=== PATIENT | female | born 1965 | race Caucasian/White ===

== ENCOUNTER 2023-06-15 07:45 | Outpatient (OUT) | payer BC, SELFPAY ==
[2023-06-15 08:50] LABS: Estimated Average Glucose 212 mg/dL
[2023-06-15 08:51] LABS: Basophils Absolute Auto 0.1 10^3/uL (0.0-0.1); Basophils Percent Auto 0.8 % (0.2-2.0); Eosinophils Absolute Auto 0.4 10^3/uL (0.0-0.7); Eosinophils Percent Auto 4.1 % (0.9-7.0); Hematocrit 44.1 % (36.0-48.0); Hemoglobin 14.2 g/dL (12.0-16.0); Immature Granulocytes Abs Auto 0.02 10^3/uL (0.00-0.03); Immature Granulocytes Pct Auto 0.2 % (0.0-0.5); Mean Corpuscular HGB Conc 32.2 g/dL (29.9-35.2); Mean Corpuscular Hemoglobin 30.8 pg (26.7-34.0); Mean Corpuscular Volume 95.7 fL (81.0-99.0); Mean Platelet Volume 9.3 fL (9.5-13.5); Monocytes Absolute Auto 0.8 10^3/uL (0.3-0.8); Monocytes Percent Auto 8.7 % (1.7-12.0); Neutrophils Absolute Auto 5.7 10^3/uL (1.4-6.5); Neutrophils Percent Auto 64.2 % (43.0-75.0); Platelet Count 330 10^3/uL (150-450); Red Blood Count 4.61 10^6/uL (4.20-5.40); Red Cell Distribution Width 13.3 % (11.0-15.0); White Blood Count 8.9 10^3/uL (4.0-11.0)
[2023-06-15 09:10] LABS: Alanine Aminotransferase 55 U/L (14-59); Albumin Globulin Ratio 1.1; Albumin Level 3.7 g/dL (3.4-5.0); Alkaline Phosphatase 78 U/L (46-116); Anion Gap 10.6; Aspartate Amino Transferase 26 U/L (15-37); BUN Creatinine Ratio 22.8; Bilirubin Total 0.9 mg/dL (0.2-1.0); Calcium 8.9 mg/dL (8.5-10.1); Carbon Dioxide 31.5 mmol/L (21.0-32.0); Chloride 106 mmol/L (98-107); Chol HDL Ratio 1.7; Cholesterol 95 mg/dL (<=200); Estimated GFR (African America >60 (>=60); Estimated GFR (Non-African Ame >60 (>=60); Free T3 2.18 pg/mL (2.18-3.98); Globulin 3.3 g/dL; Glucose 180 mg/dL (74-106); HDL Cholesterol 55 mg/dL (40-60); LDL Cholesterol Calculated 19.4 mg/dL; Potassium 4.1 mmol/L (3.5-5.1); Sodium 144 mmol/L (136-145); Thyroid Stimulating Hormone 1.367 uIU/mL (0.358-3.740); Triglycerides 103 mg/dL (<=150); VLDL CHOLESTEROL 20.6 mg/dL
== END 2023-06-15 07:46 | disposition home or self-care (01) ==
PROVIDERS: PCP Family Medicine; Visit Provider Family Medicine
DX: Z00.00 Encounter for general adult medical examination without abnormal findings (principal)
CPT/HCPCS: 36415; 80053; 80061; 82306; 82607; 82746; 83036; 83540; 84436; 84443; 84481; 85025

== ENCOUNTER 2023-06-26 06:26 | Emergency (ER) | payer BC, SELFPAY ==
[2023-06-26 06:28] VITALS: BP 126/66; PULSE 83; RESP 16; TEMP 36.9; O2SAT 95; BMI 28.3
--- OUTSIDE RECORDS SUMMARY | 2023-06-26 06:41 | XMS_ITS | CCD ---
Author Name Unknown Address [address] [place] [address] Organization [facility] Care Team Providers [facility] Former Name Role Phone Patti Valdez MD Primary Care Provider [phone] Reed Leon MD Unavailable [phone] JOSÉ MIGUEL, DR ARMSTRONG Primary Care Unavailable JOSÉ MIGUEL, DR ARMSTRONG Attending Unavailable HOY, DR ARMSTRONG Admitting Unavailable HOY, DR ARMSTRONG Consulting Unavailable MISC, DR RUFF Admitting Unavailable HOY, DR ARMSTRONG Consulting Unavailable MISC, DR RUFF Attending Unavailable SAHILY, DR ARMSTRONG Primary Care Unavailable MISC, DR RUFF Consulting Unavailable ZIEBER, DR YENNY Greenberg Consulting Unavailable SAHILY, DR ARMSTRONG Consulting Unavailable SAHILY, DR ARMSTRONG Admitting Unavailable HOY, DR ARMSTRONG Attending Unavailable HOY, DR ARMSTRONG Primary Care Unavailable HOY, DR ARMSTRONG Admitting Unavailable HOY, DR ARMSTRONG Attending Unavailable SAHILY, DR ARMSTRONG Primary Care Unavailable HOY, DR ARMSTRONG Admitting Unavailable HOY, DR ARMSTRONG Attending Unavailable HOY, DR ARMSTRONG Primary Care Unavailable HOY, DR ARMSTRONG Admitting Unavailable HOY, DR ARMSTRONG Attending Unavailable HOY, DR ARMSTRONG Consulting Unavailable SAHILY, DR ARMSTRONG Primary Care Unavailable WEST, DR AUNDREA Quintero Consulting Unavailable FELIPE STRICKLAND Consulting Unavailable JOSÉ MIGUEL, DR ARMSTRONG Admitting Unavailable JOSÉ MIGUEL, DR ARMSTRONG Attending Unavailable JOSÉ MIGUEL, DR ARMSTRONG Consulting Unavailable JOSÉ MIGUEL, DR ARMSTRONG Primary Care Unavailable AUNDREA GOSS Consulting Unavailable FELIPE STRICKLAND Consulting Unavailable JOSÉ MIGUEL, DR ARMSTRONG Admitting Unavailable JOSÉ MIGUEL, DR ARMSTRONG Attending Unavailable JOSÉ MIGUEL, DR ARMSTRONG Primary Care Unavailable Patti Valdez MD Primary Care Provider [phone] Reed Leon MD Unavailable [phone] Patti Valdez MD Primary Care Provider [phone] Patti Valdez MD Primary Care Provider [phone] PATTI VALDEZ Primary Care Unavailable Johanne SNIDER Referring Unavailable Johanne SNIDER Attending Unavailable PATTI VALDEZ Primary Care Unavailable Johanne SNIDER Referring Unavailable PATTI VALDEZ Primary Care Unavailable Johanne SNIDER Referring Unavailable Johanne SNIDER Attending Unavailable Medications Current Medications Medication Drug Class(es) Dates Sig (Normalized) Sig (Original) aspirin 81 mg delayed release oral tablet (20 sources) Platelet Aggregation Inhibitor, Nonsteroidal Anti-inflammatory Drug Start: 12-14-2022 End: 12-27-2023 take 1 tablet by mouth once daily aspirin, enteric coated (ASPIR-81) 81 mg EC tablet Take 1 tablet by mouth once daily. 90 tablet 3 12/27/2022 12/27/2023 Active Start: 04-24-2017 aspirin (ASPIR -81 ORAL) once daily. 0 04/24/2017 Active Start: 04-24-2017 aspirin (ASPIR -81 ORAL) once daily. 0 04/24/2017 Suspended Comment on above: once daily. Take 1 tablet by arlette once daily. DULoxetine 60 mg delayed release oral capsule (13 sources) Serotonin and Norepinephrine Reuptake Inhibitor Start: End: DULoxetine (CYMBALTA) 60 mg capsule Take 60 mg by mouth once daily. Three times weekly 0 05/04/2020 08/08/2021 Discontinued (Adjust Sig - Block E-Cancel) Comment on above: Take 60 mg by mouth once daily. Three times weekly Take 60 mg by mouth every Saturday,Saturday,Saturday. 0.4 ml enoxaparin sodium 100 mg/ml prefilled syringe (3 sources) Low Molecular Weight Heparin Start: End: inject 40 mg by subcutaneous injection every twelve hours enoxaparin (LOVENOX) 40 mg/0.4 mL Inject 0.4 mL subcutaneously q 12 HR. 24 mL 0 11/16/2021 12/16/2021 Active Comment on above: Inject 0.4 mL subcut aneously q 12 HR. ezetimibe 10 mg oral tablet (20 sources) Dietary Cholesterol Absorption Inhibitor Start: 022 End: 023 take 1 tablet by mouth once daily ezetimibe (ZETIA) 10 mg tablet take 1 tablet by mouth once daily 90 tablet 3 02/19/2022 02/19/2023 Active Start: 02-16-2021 End: 02-16-2022 take 1 tablet by mouth once daily ezetimibe (ZETIA) 10 mg tablet Take 1 tablet by mouth once daily. 90 tablet 3 02/16/2021 02/16/2022 Active Comment on above: Take 1 tablet by arlette th once daily. take 1 tablet by arlette th once daily oxyCODONE hydrochloride 5 mg oral tablet (1 source) Opioid Agonist Start: 11-14-19 End: 11-17-19 take 1 tablet by mouth every eight hours as needed for pain oxyCODONE IR (ROXICODONE) 5 mg immediate release tablet Indications: Postoperative pain Take 1 tablet by mouth every 8 hours as needed for pain for up to 3 days. 5 tablet 0 11/13/2021 11/16/2021 Active Comment on above: Take 1 tablet by arlette th every 8 hours as needed for pain for up to 3 days. sacubitril 24 mg / valsartan 26 mg oral tablet (20 sources) Angiotensin 2 Receptor Josue Start: 09-15-19 End: 12-26-19 take 1 tablet by mouth twice daily sacubitril-valsartan (ENTRESTO) 24-26 mg tablet Take 1 tablet by mouth twice daily. 180 tablet 3 12/26/2022 12/26/2023 Active Comment on above: Take 1 tablet by arlette th twice daily. 125 ml sodium chloride 9 mg/ml prefilled syringe (17 sources) Start: 08-13-19 21 End: 11-12-19 sodium chloride 0.9 % (flush) 10 mL (BD POSIFLUSH) torsemide 20 mg oral tablet (20 sources) Loop Diuretic Start: 09-15-19 22 End: 09-15-19 23 take 1 tablet by mouth once daily torsemide (DEMADEX) 20 mg tablet Take 1 tablet by mouth once daily. 90 tablet 3 09/14/2021 09/14/2022 Active Comment on above: Take 1 tablet by arlette th once daily. Completed/Discontinued Medications Medication Drug Class(es) Dates Sig (Normalized) Sig (Original) atorvastatin 80 mg oral tablet (20 sources) HMG-CoA Reductase Inhibitor Start: 12-01-2021 End: 12-01-2022 take 1 tablet by mouth once daily atorvastatin (LIPITOR) 80 mg tablet Indications: Coronary artery disease involving [place] coronary artery of [place] heart, unspecified whether angina present take 1 tablet by mouth once daily 90 tablet 3 12/01/2021 Active Start: 11-09-2020 End: 11-09-2021 take 1 tablet by mouth once daily atorvastatin (LIPITOR) 80 mg tablet Indications: Coronary artery disease involving [place] coronary artery of [place] heart, unspecified whether angina present Take 1 tablet by mouth once daily. 90 tablet 3 11/09/2020 Active Comment on above: Take 1 tablet by arlette th once daily. take 1 tablet by arlette th once daily carvedilol 12.5 mg oral tablet (20 sources) alpha-Adrenergic Josue, beta-Adrenergic Josue Start: 12-14-2022 take 1 tablet by mouth twice daily at mealtime carvedilol (COREG) 12.5 mg tablet Take 1 tablet by mouth twice daily with meals. 0 12/14/2022 Active Start: 08-07-2021 take 2 tablets by mo uth twice daily at mealtime carvedilol (COREG) 12.5 mg tablet Take 2 tablets by mouth twice daily with meals. 0 08/07/2021 Active Start: 04-06-2021 End: 08-07-2021 take 1 tablet by mouth twice daily at mealtime carvedilol (COREG) 12.5 mg tablet Take 1 tablet by mouth twice daily with meals. 180 tablet 3 04/06/2021 08/07/2021 Discontinued Comment on above: Take 1 tablet by arlette th twice daily with meals. Take 2 tablets by mo uth twice daily with meals. cholecalciferol 1.25 mg oral capsule (11 sources) Vitamin D Start: 07-17-19 End: 10-25-19 take 1 capsule by mouth every week cholecalciferol, Vitamin D3, (VITAMIN D3) 1,250 mcg (50,000 unit) cap capsule Take 1 capsule by mouth one time a week. 12 capsule 0 07/17/2020 10/24/2021 Discontinued Comment on above: Take 1 capsule by mo uth one time a week. clopidogrel 75 mg oral tablet (13 sources) P2Y12 Platelet Inhibitor Start: 10-09-19 End: 10-27-19 take 1 tablet by mouth once daily clopidogrel (PLAVIX) 75 mg tablet Take 1 tablet by mouth once daily. 90 tablet 3 10/08/2020 10/26/2021 Discontinued (Discontinued by another Health Care Provider) Comment on above: Take 1 tablet by arlette once daily. colesevelam hydrochloride 625 mg oral tablet (20 sources) Bile Acid Sequestrant Start: 05-31-19 WELCHOL 625 mg tablet 1,875 mg once daily. 0 05/31/2020 Active Comment on above: 1,875 mg once daily. CPAP (20 sources) Start: 04-10-20 CPAP Please Expedite for upcoming surgery. Settings 5 - 15 cm H2O, suitable mask per pt preference, chin strap, head gear, humidity, tubing, lifetime supplies. G47.33 RAYMUNDO 1 Each 11 04/10/2021 Active Start: 04-10-2021 CPAP Please Ex pedite for upcoming surgery. Settings 5 - 15 cm H2O, suitable mask per pt preference, chin strap, head gear, humidity, tubing, lifetime supplies. G47.33 RAYMUNDO 1 Each 11 04/10/2021 Suspended Comment on above: Please Expedite for upcoming surgery. Settings 5 - 15 cm H2O, suitable mask per pt preference, chin strap, head gear, humidity, tubing, lifetime supplies. G47.33 RAYMUNDO empagliflozin 25 mg oral tablet (20 sources) Sodium-Glucose Cotransporter 2 Inhibitor Start: 022 End: 023 take 1 tablet by mouth once daily at breakfast empagliflozin (JARDIANCE) 25 mg tablet Take 1 tablet by mouth daily with breakfast. 90 tablet 3 09/14/2021 Active Start: 08-11-2021 End: 09-14-2021 take 1 tablet by mouth once daily at breakfast empagliflozin (JARDIANCE) 10 mg tablet Take 1 tablet by mouth daily with breakfast. 30 tablet 0 08/11/2021 09/14/2021 Discontinued Comment on above: Take 1 tablet by arlette daily with breakfast. FREESTYLE DESIREE 14 DAY SENSOR kit (20 sources) Start: 08-23-19 FREESTYLE DESIREE 14 DAY SENSOR kit apply 1 SENSOR to back OF UPPER ARM REMOVE AND REPLACE every 14 d... (REFER TO PRESCRIPTION NOTES). 0 08/22/2021 Active Comment on above: apply 1 SENSOR to ba ck OF UPPER ARM REMOVE AND REPLACE every 14 d... (REFER TO PRESCRIPTION NOTES). fremanezumab-vfrm (AJOVY SYRINGE SUBCUTANEOUS) (20 sources) inject 1 dose by subcutaneous injection every month fremanezumab-vfrm (AJOVY SYRINGE SUBCUTANEOUS) Inject 1 Dose subcutaneously once every month. 0 Active inject 1 dose by sub cutaneous injection every month fremanezumab-vfrm (AJOVY SYRINGE SUBCUTANEOUS) Inject 1 Dose subcutaneously once every month. 0 Suspended Comment on above: Inject 1 Dose subcut aneously once every month. furosemide 20 mg oral tablet (4 sources) Loop Diuretic Start: 08-13-19 End: 11-11-19 take 1 tablet by mouth once daily furosemide (LASIX) 20 mg tablet Take 1 tablet by mouth once daily. 30 tablet 2 08/12/2021 09/14/2021 Discontinued (Course of therapy completed) Comment on above: Take 1 tablet by arlette th once daily. 3 ml insulin glargine 100 unt/ml pen injector (20 sources) Insulin Analog Start: 08-08-19 LANTUS SOLOSTAR U-100 INSULIN 100 unit/mL (3 mL) Inject 30 Units subcutaneously as directed. 0 08/07/2021 Active Start: 10-21-2020 End: 08-07-2021 LANTUS SOLOSTAR U-100 INSULI N 100 unit/mL (3 mL) Inject 20 Units subcutaneously as directed. 0 10/21/2020 08/07/2021 Discontinued Comment on above: Inject 20 Units subc utaneously as directed. Inject 30 Units subc utaneously as directed. 3 ml insulin lispro 100 unt/ml pen injector (20 sources) Insulin Analog Start: HUMALOG KWIKPEN INSULIN 100 unit/mL Inject 4 Units subcutaneously as directed. 0 10/25/2020 Active Comment on above: Inject 4 Units subcu taneously as directed. 24 hr isosorbide mononitrate 60 mg extended release oral tablet (16 sources) Nitrate Vasodilator End: take 1 tablet by mouth once daily, then take 1 tablet by mouth every twenty-four hours isosorbide mononitrate ER (IMDUR) 60 mg 24 hr tablet Take 60 mg by mouth once daily. 0 Active Comment on above: Take 60 mg by mouth once daily. losartan potassium 50 mg oral tablet (1 source) Angiotensin 2 Receptor Josue Start: 014 End: losartan (COZAAR) 50 mg tablet once daily. 0 06/02/2013 08/07/2021 Discontinued Comment on above: once daily. ondansetron 4 mg oral tablet (9 sources) Serotonin-3 Receptor Antagonist Start: take 1 tablet by mouth every eight hours as needed ondansetron (ZOFRAN) 4 mg tablet Take 1 tablet by mouth every 8 hours as needed for nausea/vomiting. 10 tablet 1 11/13/2021 Active Comment on above: Take 1 tablet by arlette th every 8 hours as needed for nausea/vomiting. pantoprazole 40 mg delayed release oral tablet (20 sources) Proton Pump Inhibitor Start: take 1 tablet by mouth once daily pantoprazole DR (PROTONIX) 40 mg tablet Take 1 tablet by mouth once daily. 30 tablet 2 06/24/2020 Active Comment on above: Take 1 tablet by arlette th once daily. potassium chloride 10 meq extended release oral tablet (16 sources) Start: take 1 tablet by mouth twice daily potassium chloride (K-TAB) 10 mEq tablet Take 10 mEq by mouth twice daily. 0 10/13/2021 Active Comment on above: Take 10 mEq by mouth twice daily. SUMAtriptan 100 mg oral tablet (20 sources) Serotonin-1b and Serotonin-1d Receptor Agonist Start: take 1 tablet by mouth every two hours SUMAtriptan (IMITREX) 100 mg tablet take 1 tablet by mouth AT ONSET OF HEADACHE may repeat in 2 hours... (REFER TO PRESCRIPTION NOTES). 0 05/02/2020 Active Comment on above: take 1 tablet by arlette th AT ONSET OF HEADACHE may repeat in 2 hours... (REFER TO PRESCRIPTION NOTES). topiramate 100 mg oral tablet (1 source) Start: End: take 100 mg by mouth once daily topiramate (TOPAMAX ORAL) Take 100 mg by mouth once daily. 0 03/29/2010 08/07/2021 Discontinued Comment on above: Take 100 mg by mouth once daily. traMADol hydrochloride 50 mg oral tablet (2 sources) Opioid Agonist Start: 023 take 1 tablet by mouth every eight hours as needed traMADol (ULTRAM) 50 mg tablet Take 50 mg by mouth three times daily as needed. 0 11/09/2022 Active Comment on above: Take 50 mg by mouth three times daily as needed. vitamin b complex capsule (12 sources) take 1 capsule by mouth once daily vitamin b complex capsule Take 1 capsule by mouth once daily. 0 Active Comment on above: Take 1 capsule by mo ut once daily. Problems Active Problems Problem Classification Problem Date Documented Da te Episodic/Chronic Acute myocardial infarction (2 sources) Myocardial infarction; Translations: [Non-ST elevation (NSTEMI) myocardial infarction] Onset: 2 08-07-2021 Chronic Administrative/social admission (5 sources) Patient encounter status; Translations: [Dietary counseling and surveillance] Episodic Cardiac dysrhythmias (1 source) Ventricular premature depolarization; Translations: [VENTRICULR PREMATURE DEPOLARIZATION] Onset: 2 Chronic Congestive heart failure; nonhypertensive (20 sources) Acute on chronic heart failure co-occurrent with normal ejection fraction; Translations: [Acute on chronic diastolic (congestive) heart failure] Onset: 2 09-14-2021 Chronic Coronary atherosclerosis and other heart disease (20 sources) Coronary atherosclerosis; Translations: [Atherosclerotic heart disease of [place] coronary artery without angina pectoris] Onset: 1 10-06-2020 Chronic Diabetes mellitus with complications (20 sources) Type 2 diabetes mellitus in obese; Translations: [Type 2 diabetes mellitus with other specified complication] Onset: 2 08-25-2020 Chronic Diabetes mellitus without complication (12 sources) Diabetes mellitus; Translations: [Type 2 diabetes mellitus without complications] Onset: 2 06-06-2020 Chronic Disorders of lipid metabolism (20 sources) Hypercholesterolemia; Translations: [Pure hypercholesterolemia, unspecified] Onset: 1 08-25-2020 Chronic Esophageal disorders (20 sources) Gastroesophageal reflux disease without esophagitis; Translations: [Gastro-esophageal reflux disease without esophagitis] Onset: 1 08-25-2020 Chronic Essential hypertension (20 sources) Hypertensive disorder; Translations: [Essential (primary) hypertension] Onset: 5 06-06-2020 Chronic Headache; including migraine (20 sources) Migraine; Translations: [Migraine, unspecified, not intractable, without status migrainosus] Onset: 0 06-06-2020 Chronic Hypertension with complications and secondary hypertension (1 source) Hypertensive heart disease with heart failure; Translations: [HTN HEART DISEASE W/HEART FAIL] Onset: 2 Chronic Nutritional deficiencies (2 sources) Vitamin D deficiency; Translations: [Vitamin D deficiency, unspecified] Onset: 2 Chronic Nutritional deficiencies (1 source) Deficiency of other specified B group vitamins; Translations: [DEFICIENCY SPEC B GROUP VITAMINS] Onset: 2 Episodic Osteoarthritis (1 source) Unspecified osteoarthritis, unspecified site; Translations: [UNSPECIFIED OSTEOARTHRITIS UNS SITE] Onset: 2 Chronic Other connective tissue disease (1 source) Presence of left artificial hip joint; Translations: [PRESENCE LEFT ARTIFICIAL HIP JOINT] Onset: 2 Chronic Other ear and sense organ disorders (1 source) Unspecified hearing loss, unspecified ear; Translations: [UNS HEARING LOSS UNSPECIFIED EAR] Onset: 2 Chronic Other gastrointestinal disorders (1 source) Abnormal intestinal absorption; Translations: [Intestinal malabsorption, unspecified] Chronic Other gastrointestinal disorders (1 source) History of bariatric surgical procedure; Translations: [Bariatric surgery status] Episodic Other gastrointestinal disorders (1 source) History of bypass of stomach; Translations: [Bariatric surgery status] Episodic Other lower respiratory disease (1 source) Dyspnea; Translations: [Dyspnea, unspecified] Episodic Other nervous system disorders (1 source) Postoperative pain ; Translations: [Other acute postprocedural pain] Episodic Other nutritional; endocrine; and metabolic disorders (20 sources) Body mass index 40+ - severely obese; Translations: [Morbid (severe) obesity due to excess calories] Onset: 1 08-12-2020 Chronic Other nutritional; endocrine; and metabolic disorders (20 sources) Morbid obesity; Translations: [Morbid (severe) obesity due to excess calories] Onset: 1 08-25-2020 Chronic Other nutritional; endocrine; and metabolic disorders (10 sources) Obesity; Translations: [Obesity, unspecified] Onset: 2 11-14-2021 Chronic Other nutritional; endocrine; and metabolic disorders (1 source) Obese class II; Translations: [Obesity, unspecified] Chronic Other nutritional; endocrine; and metabolic disorders (1 source) Body mass index 30+ - obesity; Translations: [Body mass index (BMI) 30.0-30.9, adult] Chronic Other nutritional; endocrine; and metabolic disorders (2 sources) Morbid (severe) obesity due to excess calories; Translations: [MORBID SEVERE OBES D/T EXCESS NIKITA] Onset: 1 Chronic Other nutritional; endocrine; and metabolic disorders (1 source) Obesity, unspecified; Translations: [OBESITY UNSPECIFIED] Onset: 2 Chronic Other nutritional; endocrine; and metabolic disorders (1 source) Body mass index (BMI) 40.0-44.9, adult; Translations: [BODY MASS INDEX BMI 40.0-44.9 ADULT] Onset: 2 Chronic Residual codes; unclassified (20 sources) Obstructive sleep apnea syndrome; Translations: [Obstructive sleep apnea (adult) (pediatric)] Onset: 1 04-10-2021 Chronic Unclassified (1 source) CONTACT W/AND (SUSP) EXPOS COVID-19; Translations: [CONTACT W/AND (SUSP) EXPOS COVID-19] Onset: 2 Past or Other Problems Problem Classification Problem Date Documented Da te Episodic/Chronic Coronary atherosclerosis and other heart disease (2 sources) Presence of coronary angioplasty implant and graft; Translations: [PRESENCE COR ANGPLSTY IMPLANT AND GRAFT] Onset: 10-06-2020 Episodic Fluid and electrolyte disorders (1 source) Hypokalemia; Translations: [HYPOKALEMIA] Onset: 09-22-2021 Episodic Nonspecific chest pain (4 sources) Chest pain, unspecified; Translations: [CHEST PAIN UNSPECIFIED] Onset: 09-19-2021 Episodic Other aftercare (1 source) Other long term acute care registered nurse (current) drug therapy; Translations: [OTH ASSEMBLING MACHINE OPERATOR CURRENT DRUG THERAPY] Onset: 09-22-2021 Episodic Other aftercare (1 source) [facility] (current) use of antithrombotics/anti platelets; Translations: [USP ANTITHROMBOT/ANTIPLA TLETS] Onset: 09-22-2021 Episodic Other aftercare (1 source) [facility] (current) use of aspirin; Translations: [ASSEMBLING MACHINE OPERATOR CURRENT USE OF ASPIRIN] Onset: 09-22-2021 Episodic Other aftercare (2 sources) manager long term care (current) use of insulin; Translations: [USP CURRENT USE OF INSULIN] Onset: 09-22-2021 Episodic Other hematologic conditions (1 source) Other specified abnormalities of plasma proteins; Translations: [OTH SPEC ABNORM PLASMA PROTEINS] Onset: 07-31-2021 Episodic Other lower respiratory disease (1 source) Other forms of dyspnea; Translations: [OTHER FORMS OF DYSPNEA] Onset: 07-31-2021 Episodic Other lower respiratory disease (4 sources) Other nonspecific abnormal finding of lung field; Translations: [OTH NONSPECIFIC ABN FIND LNG FIELD] Onset: 06-01-2021 Episodic Residual codes; unclassified (1 source) Acquired absence of other specified parts of digestive tract; Translations: [ACQ ABSENCE OTH PART DIGESTV TRACT] Onset: 09-22-2021 Episodic Residual codes; unclassified (1 source) Acquired absence of both cervix and uterus; Translations: [ACQUIRED ABSENCE BOTH CERVIX AND UTERUS] Onset: 09-22-2021 Episodic Results Test Name Value Interpretation Reference Range Facility EXERCISE STRESS ECG METABOLI C (WITHOUT IMAGING)on 06-18-2023 EXERCISE STRESS ECG METABOLIC (WITHOUT IMAGING) Stress ECG Report: Exercise Stress ECG Metabolic (without Imaging) [facility] TOMI-2 Date of service: 06/18/2023 8:38:16 AM JACK Ordering physician: Johanne SNIDER crop specialist: Darshan Hidalgo Batting Machine Operator: Lorraine Wakefield Interpreting physician: Jason Rankin MD Patient name: ANGIE SERRA Age: 57 years Gender: F Height: 165.10 cm BSA: 1.88 m Weight: 76.66 kg BMI: 28.1 kg/m Indication: History of percutaneous coronary angioplasty and Acute non-ST elevation (NSTEMI) myocardial infarction Metabolic Exercise Test Interpretation: - EXERCISE RESPONSE: Normal exercise power (pWork-rate). Maximal aerobic effort (pRER). Normal aerobic capacity (pVO2). Normal aerobic efficiency (VO2/WR slope). Normal limitation pattern. - CARDIOVASCULAR RESPONSE: Supranormal stroke volume response (pVO2/HR). Blunted heart rate response (pHR). Abnormal chronotropic index (CI). Normal BP response (pBP). Arrhythmias: Multifocal PVCs. ST segment and T-wave changes: No ST changes. - PULMONARY RESPONSE: There was no clinically significant oxygen desaturation during exercise (SpO2). Normal ventilatory reserve (pVE). Normal ventilatory pattern. Normal ventilatory efficiency (VE/VCO2 slope). Absent exercise oscillatory ventilation (EOV). - COMMENTS: Good functional capacity (peak VO2 16.9 ml/kg/min, 90.9% predicted) and normal ventilatory efficiency (VE/VCO2 slope 29) with adequate effort. Multifocal PVCs and blunted heart rate response but normal respiratory response to exercise. - CONCLUSION: Normal functional capacity. Previous cardiovascular interventions: PCI (10/06/20) Diagnostic cath (08/11/21) Medications: Last Used COREG 12 Hours ENTRESTO 12 Hours IMDUR 24 Hours Resting ECG: Normal Sinus Rhythm and Inferior Wall NH Exercise Protocol: cycle Cycle Exercise Table: +------+----+-----+--- -------+---+---+---+-- --+---+ Stage RPM LABOY Time (min) HR SYS RUSLAN RPE SOB +------+----+-----+--- -------+---+---+---+-- --+---+ 1 60.0 0.0 2.0 85 122 72 6.0 0.0 +------+----+-----+--- -------+---+---+---+-- --+---+ 2 60.0 26.0 4.0 92 142 78 6.0 0.0 +------+----+-----+--- -------+---+---+---+-- --+---+ 3 60.0 52.0 6.0 104 164 80 9.0 2.0 +------+----+-----+--- -------+---+---+---+-- --+---+ 4 60.0 78.0 8.0 118 186 80 15.0 4.0 +------+----+-----+--- -------+---+---+---+-- --+---+ +-----+----+-----+---- ------+---+---+---+--- -+---+ RPM LABOY Time (min) HR SYS RUSLAN RPE SOB +-----+----+-----+---- ------+---+---+---+--- -+---+ Final 60.0 86.0 8.68 127 186 80 18.0 4.0 +-----+----+-----+---- ------+---+---+---+--- -+---+ +------+ -----+ Stage Arrhythmias +------+ -----+ 1 Occas PVC (3-7/min) +------+ -----+ 2 Occas PVC (3-7/min) +------+ -----+ 3 Occas PVC (3-7/min) +------+ -----+ 4 Rare PVC (<3/min) +------+ -----+ Recovery Table: +------+ +--- +---+---+ Stage Time (min) HR SYS RUSLAN +------+ +--- +---+---+ 1 1.0 101 162 76 +------+ +--- +---+---+ 2 2.0 91 166 76 +------+ +--- +---+---+ 3 3.0 89 144 76 +------+ +--- +---+---+ 4 5.0 89 118 70 +------+ +--- +---+---+ +-----+ ----+ Stage Arrhythmias +-----+ ----+ 1 Occas PVC (3-7/min) +-----+ ----+ 2 Occas PVC (3-7/min) +-----+ ----+ 3 FREQ PVC (>7/min) +-----+ ----+ 4 FREQ PVC (>7/min) +-----+ ----+ Stress Observations: Metabolic stress lab #: 1 Study protocol type: cycle Cycle work-rate increment: 13 Laboy/min Total exercise duration: 8 min 41 sec [8-12 min] Loaded exercise duration: 6 min 41 sec [8-12 min] Peak RPE: 18.0 [>18; based on 6-20 scale] Peak dyspnea: 4.0 [<4; based on 0-10 scale] Reason for test termination: general fatigue Symptoms during test: No symptoms provoked during stress Resting HR: 78 bpm Peak HR: 127 bpm (79% MPHR) Resting BP: 132 / 78 mmHg Peak BP: 186 / 80 mmHg Rate Pressure Product (RPP): 43144 Metabolic Exercise Data Variable: Observed value [Expected Range] Peak RER: 1.25 [1.1 - 1.50] Peak work-rate: 93.0% [>85% pred peak Laboy] Peak work-rate: 85.0 Laboy Peak VO2: 90.9% [>85% pred peak VO2] Peak VO2: 16.9 ml/kg/min METS (VO2/3.5): 4.83 Rest VO2: 4.1 ml/kg/min [2-5 ml/kg/min] VO2 at VAT: 48.3% [40-75% pred peak VO2] VO2 at VAT: 9.2 ml/kg/min CI: 0.67 [0.80-1.30] Peak VO2/HR: 116.0% [>85% pred peak VO2/HR] VO2/WR slope: 9.30 ml/min/Laboy [8.5-12.5 ml/min/Laboy] Peak SpO2: 99.0% [>95%] Peak VE: 63.0% [<85% pred peak VE] Peak VE: 56.7 L/min Peak RR: 37 breaths/min [<60 breaths/min] Peak VT: 1.6 L [1.5-3.0 L] Peak PETCO2: 33 mmHg [35-41 mmHg] VE/VCO2 slope: 29 [<30] EOV: Absent [Absent] (VE/VCO2 slo (more content not included)... Normal [facility] CNOVon 12-14-2022 CNOV Office Visit (MILLI CROW MAI) ANGIE SERRA ([id number]) 1965 Justin Barrow* Date Time Provider Department 12/14/22 8:15 AM Johanne SNIDER CARD [facility] During your visit today, we recorded the following information about you: Pulse Respiration Blood pressure Height 73/minute 15/minute 101/55 1.651 m Johanne Snider MD 12/14/2022 5:07 PM Signed [facility] Nataly Watt Department of Cardiovascular Medicine [facility] Section of Heart Failure and Transplantation Medicine PATIENT Angie Serra [address] PRIMARY CARE PROVIDER Patti Valdez MD [address] [place] [address] REFERRING PROVIDER Michael Maciel [address] [facility] [address] CHIEF COMPLAINT Consult HISTORY OF PRESENT ILLNESS Angie Serra is a pleasant 56 year old White female who comes to [facility] for evaluation and management of Consult. The patient has been referred by Michael Maciel MD; a copy of this note will be provided by way of shared medical record and/or via regular mail. The date of his first clinic visit with me is September 14, 2021. In summary, Angie Serra is a 56 y/o female from [place], [place] following up after hospitalization. Pt has history of HFpEF, CAD s/p PCI in 10/06/20of mLAD, HTN, HLD, DM2, RAYMUNDO with CPAP, GERD; she was referred to us for evaluation and management of HFpEF. TE on admission 08/08 showing EF 55%, G1DD, septal/apical WMA, overall unchanged from previous on 07/2020. She underwent RHC/LHC on 08/11 showing stable moderate CAD, patent LAD stent, no evidence of significant microvascular dysfunction, elevated bilateral filling pressures with preserved cardiac output/index. She was started on diuretics and an Jardiance, which she recently ran out. INTERVAL HISTORY Last visit's recommendations were: Will refer to Ted Kaur for evaluation of RCA and LCx lesions while OFF isosorbide. Continue to follow all other prescribed medical therapies and recommendations. Return to clinic in 6-8 weeks for follow up. Since last's visit, the patient has been feeling very well. S/p bariatric surgery, has lost significant amount of weight already. On isosorbide, no longer having angina. She never heard back from Dr. Kaur; but it does not seem that she needs to at this point. No volume retention; improved MCCAIN. Improved BP control. Home SBP 110 - 130 mmHg, never gets below 90 mmHg. Home HR ranges 70 - 80 bpm, never falls below 60 bpm. GI doctor stop aspirin due to risk of stomach ulcers..., she has not been on it for over a year. REVIEW OF SYSTEMS CONSTITUTIONAL: No unintentional weight loss, malaise, or frequent fevers. No chronic fatigue. EYES: No acute vision symptoms. EARS, NOSE, MOUTH, THROAT: No acute auditive, nasal, oral, or pharyngeal symptoms. CARDIOVASCULAR: No angina. No dyspnea on exertion. No orthopnea. No lower extremity edema. No syncope. No palpitations. RESPIRATORY: No cough, hemoptysis, or wheezing. No dyspnea at rest. GASTROINTESTINAL: No vomiting or diarrhea. No abdominal pain. No melena or hematemesis. GENITOURINARY: No acute urinary frequency, or incontinence. No renal colic symptoms. MUSCULOSKELETAL: No acute joint pain or swelling. No acute severe back or muscle pain. INTEGUMENTARY: No new skin lesions, rash, or itching. NEUROLOGICAL: No major or recurrent headaches, paralysis, seizures, or tremors. PSYCHIATRIC: No major mood disorder, or recent major psychosocial stressor. ENDOCRINE: No cold or heat intolerance, polyuria, polydipsia, or goiter. HEMATOLOGIC/LYMPHATIC: No major bleeding episode. No swollen nodes. ALLERGIC/IMMUNOLOGIC: No recent major allergic reaction. ACTIVE MEDICAL PROBLEMS ACTIVE PROBLEM LIST Type 2 Diabetes Mellitus With Hyperglycemia, With Long-Term Current Use of Insulin (Hcc) Primary Hypertension Migraine Obesity, Class III, BMI >= 40 Morbid Obesity (Hcc) Mixed Hyperlipidemia Gastroesophageal Reflux Disease Without Esophagitis Diabetes Mellitus Type 2 in Obese (Hcc) Coronary Artery Disease Involving [place] Coronary Artery of [place] Heart S/P Drug Eluting Coronary Stent Placement Raymundo (Obstructive Sleep Apnea) Acute On Chronic Heart Failure With Preserved Ejection Fraction (Hcc) Heart Failure With Preserved Ejection Fraction (Hcc) Type 2 Diabetes Mellitus With Morbid Obesity (Hcc) Obesity CURRENT MEDICATIONS traMADol (ULTRAM) 50 mg tablet Take 50 mg by mouth three times daily as needed. carvedilol (COREG) 12.5 mg tablet Take 1 tablet by mouth twice daily with meals. sacubitril-valsartan (ENTRESTO) 24-26 mg tablet Take 1 tablet by mouth twice daily. ezetimibe (ZETIA) 10 mg table (more content not included)... Normal [facility] INSULINon 12-16-2021 Insulin 4.7 uIU/mL Normal 2.6-24.9 [facility] Comment on above: Performed By: #### C VDTBH #### [facility] [address] [address] [address] Argelia Baird VIT D 25-OH LABCORPon 2021 Vitamin D, 25-Hydroxy 30.5 ng/mL Normal 30.0-100.0 [facility] Comment on above: Result Comment: Erum min D deficiency has been defined by the [place] of Medicine and an Endocrine Society practice guideline as a level of serum 25-OH vitamin D less than 20 ng/mL (1,2). The Endocrine Society went on to further define vitamin D insufficiency as a level between 21 and 29 ng/mL (2). 1. IOM ([place] of Medicine). 2010. Dietary reference intakes for calcium and D. [place]: The National Academies Press. 2. Maicol MORALES, Kamila GARCIA, Nancie JAMES, et al. Evaluation, treatment, and prevention of vitamin D deficiency: an Endocrine Society clinical practice guideline. JCEM. 2010; 96(7):1911-30. Performed By: #### C MREP #### [facility] [address] [address] [address] Argelia Baird CBC AUTO DIFFon 12-15-2021 BASO # 0.0 103/ul Normal 0.0-0.1 [facility] Comment on above: Performed By: #### B FINNISH RUBBER, CMP #### [facility] [address] [place], [place] [address] Dr. Argelia Baird Basophils/100 WBC (Bld) 0.5 % Normal 0.2-2.0 [facility] Comment on above: Performed By: #### B FINNISH RUBBER, CMP #### [facility] [address] [place] [address] Dr. Argelia Baird EO # 0.3 103/ul Normal 0.0-0.7 [facility] Comment on above: Performed By: #### B FINNISH RUBBER, CMP #### [facility] [address] [place] [address] Dr. Argelia Baird Eosinophils/100 WBC (Bld) 5.0 % Normal 0.9-7.0 [facility] Comment on above: Performed By: #### B FINNISH RUBBER, CMP #### [facility] [address] [place] [address] Dr. Argelia Baird Erythrocyte distribution width (RBC) [Ratio] 20.3 % Critically high 11.0-15.0 [facility] Comment on above: Performed By: #### B FINNISH RUBBER, CMP #### [facility] [address] [place] [address] Dr. Argelia Baird Hematocrit (Bld) [Volume fraction] 40.4 % Normal 36.0-48.0 [facility] Comment on above: Performed By: #### B FINNISH RUBBER, CMP #### [facility] [address] [place] [address] Dr. Argelia Baird Hemoglobin (Bld) [Mass/Vol] 13.0 g/dL Normal 12.0-16.0 [facility] Comment on above: Performed By: #### B FINNISH RUBBER, CMP #### [facility] [address] [place] [address] Dr. Argelia Baird IG # 0.02 10e3/ul Normal 0.00-0.03 [facility] Comment on above: Performed By: #### B FINNISH RUBBER, CMP #### [facility] [address] [place] [address] Dr. Argelia Baird IG % 0.4 % Normal 0.0-0.5 [facility] Comment on above: Performed By: #### B FINNISH RUBBER, CMP #### [facility] [address] [place] [address] Dr. Argelia Baird LYMPH # 1.3 103/ul Normal 1.2-3.8 [facility] Comment on above: Performed By: #### B FINNISH RUBBER, CMP #### [facility] [address] [address] [address] Argelia Baird Lymphocytes/100 WBC (Bld) 23.6 % Normal 20.5-60.0 [facility] Comment on above: Performed By: #### B FINNISH RUBBER, CMP #### [facility] [address] [address] [address] Argelia Baird MANUAL DIFF REQ NO Normal [facility] Comment on above: Performed By: #### B FINNISH RUBBER, CMP #### [facility] [address] [place] [address] Dr. Argelia Baird MCH (RBC) [Entitic mass] 29.0 pg Normal 26.7-34.0 [facility] Comment on above: Performed By: #### B FINNISH RUBBER, CMP #### [facility] [address] [place] [address] Dr. Argelia Baird MCHC (RBC) [Mass/Vol] 32.2 g/dL Normal 29.9-35.2 [facility] Comment on above: Performed By: #### B FINNISH RUBBER, CMP #### [facility] [address] [place] [address] Dr. Argelia Baird MCV (RBC) [Entitic vol] 90.2 fL Normal 81.0-99.0 [facility] Comment on above: Performed By: #### B FINNISH RUBBER, CMP #### [facility] [address] [place] [address] Dr. Argelia Baird MONO # 0.9 103/ul Critically high 0.3-0.8 [facility] Comment on above: Performed By: #### B FINNISH RUBBER, CMP #### [facility] [address] [place] [address] Dr. Argelia Baird Monocytes/100 WBC (Bld) 16.1 % Critically high 1.7-12.0 [facility] Comment on above: Performed By: #### B FINNISH RUBBER, CMP #### [facility] [address] [place] [address] Dr. Argelia Baird NEUT # 3.1 103/ul Normal 1.4-6.5 [facility] Comment on above: Performed By: #### B FINNISH RUBBER, CMP #### [facility] [address] [place] [address] Dr. Argelia Baird Neutrophils/100 WBC (Bld) 54.4 % Normal 43.0-75.0 [facility] Comment on above: Performed By: #### B FINNISH RUBBER, CMP #### [facility] [address] [address] [address] Argelia Baird Platelet mean volume (Bld) [Entitic vol] 9.7 fL Normal 9.5-13.5 [facility] Comment on above: Performed By: #### B FINNISH RUBBER, CMP #### [facility] [address] [place] [address] Dr. Argelia Baird PLT 283 103/ul Normal 150-450 [facility] Comment on above: Performed By: #### B FINNISH RUBBER, CMP #### [facility] [address] [place] [address] Dr. Argelia Baird RBC 4.48 106/ul Normal 4.20-5.40 [facility] Comment on above: Performed By: #### B FINNISH RUBBER, CMP #### [facility] [address] [place] [address] Dr. Argelia Baird WBC 5.6 103/ul Normal 4.0-11.0 [facility] Comment on above: Performed By: #### B FINNISH RUBBER, CMP #### [facility] [address] [place] [address] Dr. Argelia Baird FREE THYROXINE INDEX T7on FTI 2.48 Normal 1.30-4.50 [facility] Comment on above: Performed By: #### C VDTBH #### [facility] [address] [place] [address] Dr. Argelia Baird T3U 33.0 % Normal 30.0-39.0 [facility] Comment on above: Performed By: #### C VDTBH #### [facility] [address] [place] [address] Dr. Argelia Baird T4 [Mass/Vol] 7.50 ug/dL Normal 4.80-13.90 [facility] Comment on above: Performed By: #### C VDTBH #### [facility] [address] [address] [address] Argelia Baird GLYCOHEMOGLOBIN A1Con 2021 ADA RECOMMENDATION SEE BELOW Normal [facility] Comment on above: Result Comment: ADA RECOMMENDED LIMIT 4.0 - 6.0 ADA THERAPEUTIC TARGET < 7.0 ACTION SUGGESTED > 7.0 Performed By: #### A 1C #### [facility] [address] [address] [address] Argelia Baird Glucose [Mass/Vol] 148 mg/dL Normal [facility] Comment on above: Performed By: #### A 1C #### [facility] [address] [place] [address] Dr. Argelia Baird HbA1c (Bld) [Mass fraction] 6.8 % Critically high 4.5-6.2 [facility] Comment on above: Performed By: #### A 1C #### [facility] [address] [place] [address] Dr. Argelia Baird IRONon 12-15-2021 Iron [Mass/Vol] 51.0 ug/dL Normal 50.0-170.0 [facility] Comment on above: Performed By: #### C VDTBH #### [facility] [address] [place] [address] Dr. Argelia Baird LIPID PROFILEon 12-15-2021 CHOL-HDL RATIO NORM SEE BELOW Normal [facility] Comment on above: Result Comment: 3.3 - 4.4 LOW RISK 4.4 - 7.1 AVERAGE RISK 7.1 - 11.0 MODERATE RISK >11.0 HIGH RISK Performed By: #### C VDTBH #### [facility] [address] [place] [address] Dr. Argelia Baird Cholesterol [Mass/Vol] 83 mg/dL Normal <=200 [facility] Comment on above: Performed By: #### C VDTBH #### [facility] [address] [address] [address] Argelia Baird Cholesterol in HDL [Mass/Vol] 34 mg/dL Critically low 40-60 [facility] Comment on above: Performed By: #### C VDTBH #### [facility] [address] [address] [address] Argelia Baird Cholesterol in LDL [Mass/Vol] 15.8 mg/dL Normal [facility] Comment on above: Performed By: #### C VDTBH #### [facility] [address] [address] [address] Argelia Biard Cholesterol.total/Ch olesterol in HDL [Mass ratio] 2.4 {ratio} Normal [facility] Comment on above: Performed By: #### C VDTBH #### [facility] [address] [place] [address] Dr. Argelia Baird HDL NORMAL > or = 60 mg/dl - LO W CARDIOVASCULAR RISK <40 mg/dl - HIGH CARDIOVASCULAR RISK Normal [facility] Comment on above: Performed By: #### C VDTBH #### [facility] [address] [place] [address] Dr. Argelia Baird LDL CALC NORMAL SEE BELOW Normal [facility] Comment on above: Result Comment: <100 mg/dl OPTIMAL 100 - 129 mg/dl NEAR OR ABOVE OPTIMAL 130 - 159 mg/dl BORDERLINE HIGH 160 - 189 mg/dl HIGH >190 mg/dl VERY HIGH Performed By: #### C VDTBH #### [facility] [address] [place] [address] Dr. Argelia Baird Triglyceride [Mass/Vol] 166 mg/dL Critically high <=150 [facility] Comment on above: Performed By: #### C VDTBH #### [facility] [address] [place] [address] Dr. Argelia Baird VLDL CALC 33.2 mg/dL Normal [facility] Comment on above: Performed By: #### C VDTBH #### [facility] [address] [place] [address] Dr. Argelia Baird PROF 14(COMP METB)on 022 Albumin [Mass/Vol] 3.0 g/dL Critically low 3.4-5.0 Th [facility] Comment on above: Performed By: #### C VDTBH #### [facility] [address] [place] [address] Dr. Argelia Baird Albumin/Globulin [Mass ratio] 1.0 {ratio} Normal [facility] Comment on above: Performed By: #### C VDTBH #### [facility] [address] [place] [address] Dr. Argelia Baird ALP [Catalytic activity/Vol] 100 U/L Normal 46-116 [facility] Comment on above: Performed By: #### C VDTBH #### [facility] [address] [address] [address] Argelia Baird ALT [Catalytic activity/Vol] 42 U/L Normal 14-59 [facility] Comment on above: Performed By: #### C VDTBH #### [facility] [address] [place] [address] Dr. Argelia Baird Anion gap [Moles/Vol] 14.1 mmol/L Normal [facility] Comment on above: Performed By: #### C VDTBH #### [facility] [address] [place] [address] Dr. Argelia Baird AST [Catalytic activity/Vol] 36 U/L Normal 15-37 [facility] Comment on above: Performed By: #### C VDTBH #### [facility] [address] [place] [address] Dr. Argelia Baird Bilirubin [Mass/Vol] 0.4 mg/dL Normal 0.2-1.0 [facility] Comment on above: Performed By: #### C VDTBH #### [facility] [address] [place] [address] Dr. Argelia Baird Calcium [Mass/Vol] 8.1 mg/dL Critically low 8.5-10.1 Th [facility] Comment on above: Performed By: #### C VDTBH #### [facility] [address] [place] [address] Dr. Argelia Baird Chloride [Moles/Vol] 111 mmol/L Critically high 98-107 [facility] Comment on above: Performed By: #### C VDTBH #### [facility] [address] [address] [address] Argelia Baird CO2 [Moles/Vol] 24.4 mmol/L Normal 21.0-32.0 [facility] Comment on above: Performed By: #### C VDTBH #### [facility] [address] [place] [address] Dr. Argelia Baird Creatinine [Mass/Vol] 0.75 mg/dL Normal 0.55-1.02 [facility] Comment on above: Performed By: #### C VDTBH #### [facility] [address] [place] [address] Dr. Argelia Baird EGFR-AF GREENLANDIC >60 Normal >=60 [facility] Comment on above: Performed By: #### C VDTBH #### [facility] [address] [place] [address] Dr. Argelia Baird EGFR-NON AF GREENLANDIC >60 Normal >=60 [facility] Comment on above: Performed By: #### C VDTBH #### [facility] [address] [place] [address] Dr. Argelia Baird Globulin (S) [Mass/Vol] 3.0 g/dL Normal [facility] Comment on above: Performed By: #### C VDTBH #### [facility] [address] [place] [address] Dr. Argelia Baird Glucose [Mass/Vol] 128 mg/dL Critically high 74-106 T [facility] Comment on above: Performed By: #### C VDTBH #### [facility] [address] [place] [address] Dr. Argelia Baird Potassium [Moles/Vol] 3.5 mmol/L Normal 3.5-5.1 [facility] Comment on above: Performed By: #### C VDTBH #### [facility] [address] [place] [address] Dr. Argelia Baird Protein [Mass/Vol] 6.0 g/dL Critically low 6.4-8.2 Th [facility] Comment on above: Performed By: #### C VDTBH #### [facility] [address] [address] [address] Argelia Baird Sodium [Moles/Vol] 146 mmol/L Critically high 136-145 [facility] Comment on above: Performed By: #### C VDTBH #### [facility] [address] [place] [address] Dr. Argelia aBird Urea nitrogen [Mass/Vol] 16.0 mg/dL Normal 7.0-18.0 [facility] Comment on above: Performed By: #### C VDTBH #### [facility] [address] [place] [address] Dr. Argelia Baird Urea nitrogen/Creatinine [Mass ratio] 21.3 mg/mg Normal [facility] Comment on above: Performed By: #### C VDTBH #### [facility] [address] [place] [address] Dr. Argelia Baird TSHon 12-15-2021 TSH 1.803 uIU/mL Normal 0.358-3.740 [facility] Comment on above: Performed By: #### C VDTBH #### [facility] [address] [place] [address] Dr. Argelia Baird VIT B12 AND FOLATEon 022 Cobalamin (Vitamin B12) [Mass/Vol] 834.0 pg/mL Normal 193.0-986.0 [facility] Comment on above: Performed By: #### C VDTBH #### [facility] [address] [place] [address] Dr. Argelia Baird FOLATE 20.80 ng/mL Normal 8.60-58.90 [facility] Comment on above: Performed By: #### C VDTBH #### [facility] [address] [place] [address] Dr. Argelia Baird 25(OH)D3 [facility] 25-hydroxyvitamin D3 [Mass/Vol] 40.1 ng/mL Normal 31.0-80.0 [facility] Comment on above: Order Comment: Speci men Type: BLOOD SPECIMEN Ordering Facility: [facility] Address: [address] [place] [address] Result Comment: Clas sification of 25 [place] Vitamin D status: Deficiency/Insufficiency: < or = 30 ng/ml. Sufficiency/Optimal Levels: 31-80 ng/mL Toxicity: > 100 ng/mL. Test performed by chemiluminescent immunoassay. Performed By: #### 1 989-3 #### [facility] CLIA [id number] [address] [place] [address] [place] [facility] CBC W Auto Differential pane l (Bld)on 11-13-2021 Basophils (Bld) [#/Vol] 0.04 10*3/uL Normal <0.11 [facility] Comment on above: Order Comment: Speci men Type: BLOOD SPECIMEN Ordering Facility: [facility] Address: [address] [place] [address] Performed By: #### 5 7021-8 #### [facility] [place] [id number] [address] [place] [address] [place] Basophils/100 WBC (Bld) 0.5 % Normal [facility] Comment on above: Order Comment: Speci men Type: BLOOD SPECIMEN Ordering Facility: [facility] Address: [address] [place] [address] Performed By: #### 5 7021-8 #### [facility] CLIA [id number] [address] [place] [address] [place] [facility] Differential cell count method Nom (Bld) Auto Normal [facility] Comment on above: Order Comment: Speci men Type: BLOOD SPECIMEN Ordering Facility: [facility] Address: [address] [place] [address] Performed By: #### 5 7021-8 #### [facility] CLIA [id number] [address] [place] [address] [place] Eosinophils (Bld) [#/Vol] 0.31 10*3/uL Normal <0.46 [facility] Comment on above: Order Comment: Speci men Type: BLOOD SPECIMEN Ordering Facility: [facility] Address: [address] Performed By: #### 5 7021-8 #### [facility] CLIA [id number] [address] [place] [address] [place] Eosinophils/100 WBC (Bld) 3.8 % Normal [facility] Comment on above: Order Comment: Speci men Type: BLOOD SPECIMEN Ordering Facility: [facility] Address: [address] [place] [address] Performed By: #### 5 7021-8 #### [facility] CLIA [id number] [address] [place] [address] [place] Erythrocyte distribution width (RBC) [Ratio] 15.2 % High 11.5-15.0 [facility] Comment on above: Order Comment: Speci men Type: BLOOD SPECIMEN Ordering Facility: [facility] Address: [address] [place] [address] Performed By: #### 5 7021-8 #### [facility] [place] [id number] [address] [place] [address] [place] Hematocrit (Bld) [Volume fraction] 43.1 % Normal 36.0-46.0 [facility] Comment on above: Order Comment: Speci men Type: BLOOD SPECIMEN Ordering Facility: [facility] Address: [address] [place], [place] [address] Performed By: #### 5 7021-8 #### [facility] CLIA [id number] [address] [place], [place] [address] [place] Hemoglobin (Bld) [Mass/Vol] 13.6 g/dL Normal 11.5-15.5 [facility] Comment on above: Order Comment: Speci men Type: BLOOD SPECIMEN Ordering Facility: [facility] Address: [address] [place], [place] [address] Performed By: #### 5 7021-8 #### [facility] CLIA [id number] [address] [place] [address] STATES [facility] IMMATURE GRAN % 0.4 % Normal [facility] Comment on above: Order Comment: Speci men Type: BLOOD SPECIMEN Ordering Facility: [facility] Address: [address] [place] [address] Performed By: #### 5 7021-8 #### [facility] CLIA [id number] [address] [place] [address] [place] IMMATURE GRAN ABS 0.03 k/uL Normal <0.10 [facility] Comment on above: Order Comment: Speci men Type: BLOOD SPECIMEN Ordering Facility: [facility] Address: [address] [place] [address] Performed By: #### 5 7021-8 #### [facility] CLIA [id number] [address] [place] [address] [place] Lymphocytes (Bld) [#/Vol] 1.11 10*3/uL Normal 1.00-4.00 [facility] Comment on above: Order Comment: Speci men Type: BLOOD SPECIMEN Ordering Facility: [facility] Address: [address] [place] [address] Performed By: #### 5 7021-8 #### [facility] CLIA [id number] [address] [place] [address] [place] Lymphocytes/100 WBC (Bld) 13.7 % Normal [facility] Comment on above: Order Comment: Speci men Type: BLOOD SPECIMEN Ordering Facility: [facility] Address: [address] [place] [address] Performed By: #### 5 7021-8 #### [facility] CLIA [id number] [address] [place] [address] [place] MCH (RBC) [Entitic mass] 28.4 pg Normal 26.0-34.0 [facility] Comment on above: Order Comment: Speci men Type: BLOOD SPECIMEN Ordering Facility: [facility] Address: [address] Performed By: #### 5 7021-8 #### [facility] CLIA [id number] [address] [place] [address] [place] MCHC (RBC) [Mass/Vol] 31.6 g/dL Normal 30.5-36.0 [facility] Comment on above: Order Comment: Speci men Type: BLOOD SPECIMEN Ordering Facility: [facility] Address: [address] [place] [address] Performed By: #### 5 7021-8 #### [facility] CLIA [id number] [address] [place] [address] [place] MCV (RBC) [Entitic vol] 90.0 fL Normal 80.0-100.0 [facility] Comment on above: Order Comment: Speci men Type: BLOOD SPECIMEN Ordering Facility: [facility] Address: [address] [place], [place] [address] Performed By: #### 5 7021-8 #### [facility] [place] [id number] [address] [place] [address] [place] Monocytes (Bld) [#/Vol] 0.63 10*3/uL Normal <0.87 [facility] Comment on above: Order Comment: Speci men Type: BLOOD SPECIMEN Ordering Facility: [facility] Address: [address] [place], [place] [address] Performed By: #### 5 7021-8 #### [facility] CLIA [id number] [address] [place] [address] STATES [facility] Monocytes/100 WBC (Bld) 7.7 % Normal [facility] Comment on above: Order Comment: Speci men Type: BLOOD SPECIMEN Ordering Facility: [facility] Address: [address] [place], [place] [address] Performed By: #### 5 7021-8 #### [facility] CLIA [id number] [address] [place] [address] [place] Neutrophils (Bld) [#/Vol] 6.01 10*3/uL Normal 1.45-7.50 [facility] Comment on above: Order Comment: Speci men Type: BLOOD SPECIMEN Ordering Facility: [facility] Address: [address] [place] [address] Performed By: #### 5 7021-8 #### [facility] CLIA [id number] [facility] [place] [address] [place] Neutrophils/100 WBC (Bld) 73.9 % Normal [facility] Comment on above: Order Comment: Speci men Type: BLOOD SPECIMEN Ordering Facility: [facility] Address: [address] [place] [address] Performed By: #### 5 7021-8 #### [facility] CLIA [id number] [address] [place] [address] [place] Nucleated RBC (Bld) [#/Vol] 10*3/uL Normal <0.01 [facility] Comment on above: Order Comment: Speci men Type: BLOOD SPECIMEN Ordering Facility: [facility] Address: [address] [place] [address] Performed By: #### 5 7021-8 #### [facility] CLIA [id number] [address] [place] [address] [place] Nucleated RBC/100 WBC (Bld) [Ratio] 0.0 /100 WBC Normal [facility] Comment on above: Order Comment: Speci men Type: BLOOD SPECIMEN Ordering Facility: [facility] Address: [address] [place] [address] Performed By: #### 5 7021-8 #### [facility] CLIA [id number] [address] [place] [address] [place] Platelet mean volume (Bld) [Entitic vol] 8.6 fL Low 9.0-12.7 [facility] Comment on above: Order Comment: Speci men Type: BLOOD SPECIMEN Ordering Facility: [facility] Address: [address] [place], [place] [address] Performed By: #### 5 7021-8 #### [facility] CLIA [id number] [address] [place] [address] Platelets (Bld) [#/Vol] 320 10*3/uL Normal 150-400 [facility] Comment on above: Order Comment: Speci men Type: BLOOD SPECIMEN Ordering Facility: [facility] Address: [address] [place], [place] [address] Performed By: #### 5 7021-8 #### [facility] CLIA [id number] [address] [place] [address] RBC (Bld) [#/Vol] 4.79 10*6/uL Normal 3.90-5.20 [facility] Comment on above: Order Comment: Speci men Type: BLOOD SPECIMEN Ordering Facility: [facility] Address: [address] [place], [place] [address] Performed By: #### 5 7021-8 #### [facility] [place] [id number] [address] [place] [address] WBC (Bld) [#/Vol] 8.13 10*3/uL Normal 3.70-11.00 [facility] Comment on above: Order Comment: Speci men Type: BLOOD SPECIMEN Ordering Facility: [facility] Address: [address] [place], [place] [address] Performed By: #### 5 7021-8 #### [facility] CLIA [id number] [address] [place], [place] [address] [facility] CON[facility]IRM BLOOD TYPEon 022 ABO O Normal [facility] Comment on above: Order Comment: Speci men Type: BLOOD SPECIMEN Ordering Facility: [facility] Address: [address] [place] [address] Performed By: #### C ONO #### [facility] CLIA [id number] [address] [id number] [place] Rh Nom (Bld) Positive Normal [facility] Comment on above: Order Comment: Speci men Type: BLOOD SPECIMEN Ordering Facility: [facility] Address: [address] [place] [address] Performed By: #### C ONAB #### [facility] [place] [id number] [address] [place], [place] [address] [place] Comprehensive metabolic 2000 panelon 11-13-2021 Albumin [Mass/Vol] 4.5 g/dL Normal 3.9-4.9 [facility] Comment on above: Order Comment: Speci men Type: BLOOD SPECIMEN Ordering Facility: [facility] Address: [address] [place] [address] Performed By: #### 2 4323-8 #### [facility] [id number] [address] [place] [address] [place] ALP [Catalytic activity/Vol] 94 U/L Normal 34-123 [facility] Comment on above: Order Comment: Speci men Type: BLOOD SPECIMEN Ordering Facility: [facility] Address: [address] [place] [address] Performed By: #### 2 4323-8 #### [facility] [id number] [address] [place], [place] [address] [facility] [place] ALT [Catalytic activity/Vol] 23 U/L Normal 7-38 [facility] Comment on above: Order Comment: Speci men Type: BLOOD SPECIMEN Ordering Facility: [facility] Address: [address] [place] [address] Performed By: #### 2 4323-8 #### [facility] IA [id number] [address] [place], [place] [address] [place] Anion gap [Moles/Vol] 13 mmol/L Normal 9-18 [facility] Comment on above: Order Comment: Speci men Type: BLOOD SPECIMEN Ordering Facility: [facility] Address: [address] Performed By: #### 2 4323-8 #### [facility] CLIA [id number] [address] [place] [address] [place] AST [Catalytic activity/Vol] 19 U/L Normal 13-35 [facility] Comment on above: Order Comment: Speci men Type: BLOOD SPECIMEN Ordering Facility: [facility] Address: [address] [place], [place] [address] Performed By: #### 2 4323-8 #### [facility] IA [id number] [facility] [place] [address] [place] Bilirubin [Mass/Vol] 0.8 mg/dL Normal 0.2-1.3 [facility] Comment on above: Order Comment: Speci men Type: BLOOD SPECIMEN Ordering Facility: [facility] Address: [address] [place] [address] Performed By: #### 2 4323-8 #### [facility] IA [id number] [address] [place] [address] [place] Calcium [Mass/Vol] 9.5 mg/dL Normal 8.5-10.2 [facility] Comment on above: Order Comment: Speci men Type: BLOOD SPECIMEN Ordering Facility: [facility] Address: [address] [place], [place] [address] Performed By: #### 2 4323-8 #### [facility] CLIA [id number] [address] [place] [address] [place] Chloride [Moles/Vol] 101 mmol/L Normal 97-105 [facility] Comment on above: Order Comment: Speci men Type: BLOOD SPECIMEN Ordering Facility: [facility] Address: [address] [place], [place] [address] Performed By: #### 2 4323-8 #### [facility] CLIA [id number] [address] [place] [address] [place] [facility] CO2 [Moles/Vol] 27 mmol/L Normal 22-30 [facility] Comment on above: Order Comment: Speci men Type: BLOOD SPECIMEN Ordering Facility: [facility] Address: [address] [place] [address] Performed By: #### 2 4323-8 #### [facility] CLIA [id number] [address] [place] [address] [place] [facility] Creatinine [Mass/Vol] 0.90 mg/dL Normal 0.58-0.96 [facility] Comment on above: Order Comment: Speci men Type: BLOOD SPECIMEN Ordering Facility: [facility] Address: [address] [place] [address] Performed By: #### 2 4323-8 #### [facility] CLIA [id number] [address] [place] [address] ESTIMATED GLOMERULAR FILTRATION RATE 74 mL/min/1.73m??? Normal >=60 [facility] Comment on above: Order Comment: Omkari men Type: BLOOD SPECIMEN Ordering Facility: [facility] Address: [address] [place] [address] Result Comment: Lory mated Glomerular Filtration Rate (eGFR) is calculated using the 2020 CKD-EPI creatinine equation. This equation utilizes serum creatinine, sex, and age as parameters. The creatinine assay has traceable calibration to isotope dilution-mass spectrometry. Refer to KDIGO guidelines for clinical interpretation. In patients with unstable renal function, e.g. those with acute kidney injury, the eGFR may not accurately reflect actual GFR. Performed By: #### 2 4323-8 #### [facility] CLIA [id number] [address] [place], [place] [address] [place] Glucose [Mass/Vol] 156 mg/dL High 74-99 [facility] Comment on above: Order Comment: Speci uli Type: BLOOD SPECIMEN Ordering Facility: [facility] Address: [address] [place] [address] Result Comment: The [place] Diabetes Association (ADA) provides guidance for cutoff values for fasting glucose and random glucose. The ADA defines fasting as no caloric intake for at least 8 hours. Fasting plasma glucose results between 100 to 125 mg/dL indicate increased risk for diabetes (prediabetes). Fasting plasma glucose results greater than or equal to 126 mg/dL meet the criteria for diagnosis of diabetes. In the absence of unequivocal hyperglycemia, results should be confirmed by repeat testing. In a patient with classic symptoms of hyperglycemia or hyperglycemic crisis, random plasma glucose results greater than or equal to 200 mg/dL meet the criteria for diagnosis of diabetes. Reference: Standards of Medical Care in Diabetes 2016, [place] Diabetes Association. Diabetes Care. 2016.39(Suppl 1). Performed By: #### 2 4323-8 #### [facility] CLIA [id number] [address] [place] [address] [place] Potassium [Moles/Vol] 4.9 mmol/L Normal 3.7-5.1 [facility] Comment on above: Order Comment: Speci men Type: BLOOD SPECIMEN Ordering Facility: [facility] Address: [address] [place] [address] Performed By: #### 2 4323-8 #### [facility] CLIA [id number] [address] [place] [address] [place] Protein [Mass/Vol] 7.0 g/dL Normal 6.3-8.0 [facility] Comment on above: Order Comment: Omkari uli Type: BLOOD SPECIMEN Ordering Facility: [facility] Address: [address] [place] [address] Performed By: #### 2 4323-8 #### [facility] CLIA [id number] [address] [place], [place] [address] [place] Sodium [Moles/Vol] 141 mmol/L Normal 136-144 [facility] Comment on above: Order Comment: Omkari men Type: BLOOD SPECIMEN Ordering Facility: [facility] Address: [address] [place] [address] Performed By: #### 2 4323-8 #### [facility] CLIA [id number] [address] [place] [address] [place] Urea nitrogen [Mass/Vol] 26 mg/dL High 7-21 [facility] Comment on above: Order Comment: Felecia mcnally Type: BLOOD SPECIMEN Ordering Facility: [facility] Address: [address] [place] [address] Performed By: #### 2 4323-8 #### [facility] CLIA [id number] [address] [place], [place] [address] [place] Fact VIII Act/Nor PPPon 10-19 Coagulation factor VIII activity actual/normal Coag (PPP) [Relative time] 123 % Normal 50-173 [facility] Comment on above: Order Comment: Felecia mcnally Type: BLOOD SPECIMEN Ordering Facility: [facility] Address: [address] [place] [address] Performed By: #### 3 209-4 #### [facility] CLIA [id number] [address] [place] [address] [place] HbA1c (Bld)on 11-13-2021 Average glucose Estimated from glycated hemoglobin (Bld) [Mass/Vol] 189 mg/dL Normal [facility] Comment on above: Order Comment: Felecia mcnally Type: BLOOD SPECIMEN Ordering Facility: [facility] Address: [address] [place] [address] Result Comment: eAG: (Estimated average glucose) is a calculated value from HgbA1c and is investment representative of the average blood glucose level in the last 2-3 month period. Performed By: #### 5 5454-3 #### [facility] CLIA [id number] [address] [place] [address] [place] HbA1c (Bld) [Mass fraction] 8.2 % High 4.3-5.6 [facility] Comment on above: Order Comment: Felecia mcnally Type: BLOOD SPECIMEN Ordering Facility: [facility] Address: [address] [place] [address] Result Comment: [place] Diabetes Association guidelines indicate that patients with HgbA1c in the range 5.7-6.4% are at increased risk for development of diabetes, and intervention by lifestyle modification may be beneficial. HgbA1c greater or equal to 6.5% is considered diagnostic of diabetes. Performed By: #### 5 5454-3 #### [facility] CLIA [id number] [address] [place] [address] TYPE AND SCREEN,30 DAYon ABO O [facility] Comment on above: Order Comment: Speci men Type: BLOOD SPECIMEN Ordering Facility: [facility] Address: [address] [place] [address] Performed By: #### T SCR30 #### [facility] CLIA [id number] [address] [place] [address] HISTORICAL AB SCR STATUS Negative [facility] Comment on above: Order Comment: Speci men Type: BLOOD SPECIMEN Ordering Facility: [facility] Address: [address] [place] [address] Performed By: #### T SCR30 #### [facility] CLIA [id number] [address] [place] [address] [place] Rh Nom (Bld) Positive [facility] Comment on above: Order Comment: Speci men Type: BLOOD SPECIMEN Ordering Facility: [facility] Address: [address] [place] [address] Performed By: #### T SCR30 #### [facility] [place] [id number] [address] [place] [address] [place] BNPon 09-28-2021 Natriuretic peptide B (Bld) [Mass/Vol] 131.0 pg/mL Normal <=900.0 [facility] Comment on above: Performed By: #### B FINNISH RUBBER, CMP #### [facility] [address] [address] [address] Argelia Baird PROF 14(COMP METB)on 022 Albumin [Mass/Vol] 3.6 g/dL Normal 3.4-5.0 [facility] Comment on above: Performed By: #### B FINNISH RUBBER, CMP #### [facility] [address] [address] [address] Argelia Baird Albumin/Globulin [Mass ratio] 1.0 {ratio} Normal [facility] Comment on above: Performed By: #### B FINNISH RUBBER, CMP #### [facility] [address] [address] [address] Argelia Baird ALP [Catalytic activity/Vol] 90 U/L Normal 46-116 [facility] Comment on above: Performed By: #### B FINNISH RUBBER, CMP #### [facility] [address] [address] [address] Argelia Baird ALT [Catalytic activity/Vol] 33 U/L Normal 14-59 [facility] Comment on above: Performed By: #### B FINNISH RUBBER, CMP #### [facility] [address] [address] [address] Argelia Baird Anion gap [Moles/Vol] 11.7 mmol/L Normal [facility] Comment on above: Performed By: #### B FINNISH RUBBER, CMP #### [facility] [address] [address] [address] Argelia Baird AST [Catalytic activity/Vol] 21 U/L Normal 15-37 [facility] Comment on above: Performed By: #### B FINNISH RUBBER, CMP #### [facility] [address] [address] [address] Argelia Baird Bilirubin [Mass/Vol] 0.5 mg/dL Normal 0.2-1.0 [facility] Comment on above: Performed By: #### B FINNISH RUBBER, CMP #### [facility] [address] [address] [address] Argelia Baird Calcium [Mass/Vol] 8.9 mg/dL Normal 8.5-10.1 [facility] Comment on above: Performed By: #### B FINNISH RUBBER, CMP #### [facility] [address] [address] [address] Argelia Baird Chloride [Moles/Vol] 102 mmol/L Normal 98-107 [facility] Comment on above: Performed By: #### B FINNISH RUBBER, CMP #### [facility] [address] [address] [address] Argelia Baird CO2 [Moles/Vol] 29.3 mmol/L Normal 21.0-32.0 [facility] Comment on above: Performed By: #### B FINNISH RUBBER, CMP #### [facility] [address] [address] [address] Argelia Baird Creatinine [Mass/Vol] 1.05 mg/dL Critically high 0.55-1.02 [facility] Comment on above: Performed By: #### B FINNISH RUBBER, CMP #### [facility] [address] [address] [address] Argelia Baird EGFR-AF GREEN[place] >60 Normal >=60 [facility] Comment on above: Performed By: #### B FINNISH RUBBER, CMP #### [facility] [address] [address] [address] Argelia Baird EGFR-NON AF [place] 54 mL/min/1.73m2 Critically low >=60 [facility] Comment on above: Performed By: #### B FINNISH RUBBER, CMP #### [facility] [address] [address] [address] Argelia Baird Globulin (S) [Mass/Vol] 3.5 g/dL Normal [facility] Comment on above: Performed By: #### B FINNISH RUBBER, CMP #### [facility] [address] [address] [address] Argelia Baird Glucose [Mass/Vol] 145 mg/dL Critically high 74-106 [facility] Comment on above: Performed By: #### B FINNISH RUBBER, CMP #### [facility] [address] [address] [address] Argelia Baird Potassium [Moles/Vol] 4.0 mmol/L Normal 3.5-5.1 [facility] Comment on above: Performed By: #### B FINNISH RUBBER, CMP #### [facility] [address] [address] [address] Argelia Baird Protein [Mass/Vol] 7.1 g/dL Normal 6.4-8.2 [facility] Comment on above: Performed By: #### B FINNISH RUBBER, CMP #### [facility] [address] [place] [address] Dr. Argelia Baird Sodium [Moles/Vol] 139 mmol/L Normal 136-145 [facility] Comment on above: Performed By: #### B FINNISH RUBBER, CMP #### [facility] [address] [place] [address] Dr. Argelia Baird Urea nitrogen [Mass/Vol] 32.0 mg/dL Critically high 7.0-18.0 [facility] Comment on above: Performed By: #### B FINNISH RUBBER, CMP #### [facility] [address] [place] [address] Dr. Argelia Baird Urea nitrogen/Creatinine [Mass ratio] 30.5 mg/mg Normal [facility] Comment on above: Performed By: #### B FINNISH RUBBER, CMP #### [facility] [address] [place] [address] Dr. Argelia Baird BNPon 09-20-2021 Natriuretic peptide B (Bld) [Mass/Vol] 162.0 pg/mL Normal <=900.0 [facility] Comment on above: Performed By: #### B FINNISH RUBBER, CMP #### [facility] [address] [place] [address] Dr. Argelia Baird CBC AUTO DIFFon 09-20-2021 BASO # 0.0 103/ul Normal 0.0-0.1 [facility] Comment on above: Performed By: #### B FINNISH RUBBER, CMP #### [facility] [address] [place] [address] Dr. Argelai Baird Basophils/100 WBC (Bld) 0.4 % Normal 0.2-2.0 [facility] Comment on above: Performed By: #### B FINNISH RUBBER, CMP #### [facility] [address] [place] [address] Dr. Argelia Baird EO # 0.3 103/ul Normal 0.0-0.7 [facility] Comment on above: Performed By: #### B FINNISH RUBBER, CMP #### [facility] [address] [place] [address] Dr. Argelia Baird Eosinophils/100 WBC (Bld) 3.8 % Normal 0.9-7.0 [facility] Comment on above: Performed By: #### B FINNISH RUBBER, CMP #### [facility] [address] [place] [address] Dr. Argelia Baird Erythrocyte distribution width (RBC) [Ratio] 14.1 % Normal 11.0-15.0 [facility] Comment on above: Performed By: #### B FINNISH RUBBER, CMP #### [facility] [address] [place] [address] Dr. Argelia Baird Hematocrit (Bld) [Volume fraction] 41.7 % Normal 36.0-48.0 [facility] Comment on above: Performed By: #### B FINNISH RUBBER, CMP #### [facility] [address] [place] [address] Dr. Argelia Baird Hemoglobin (Bld) [Mass/Vol] 13.0 g/dL Normal 12.0-16.0 [facility] Comment on above: Performed By: #### B FINNISH RUBBER, CMP #### [facility] [address] [place] [address] Dr. Argelia Baird IG # 0.02 10e3/ul Normal 0.00-0.03 [facility] Comment on above: Performed By: #### B FINNISH RUBBER, CMP #### [facility] [address] [place] [address] Dr. Argelia Baird IG % 0.3 % Normal 0.0-0.5 [facility] Comment on above: Performed By: #### B FINNISH RUBBER, CMP #### [facility] [address] [place] [address] Dr. Argelia Baird LYMPH # 1.1 103/ul Critically low 1.2-3.8 [facility] Comment on above: Performed By: #### B FINNISH RUBBER, CMP #### [facility] [address] [place] [address] Dr. Argelia Baird Lymphocytes/100 WBC (Bld) 14.2 % Critically low 20.5-60.0 [facility] Comment on above: Performed By: #### B FINNISH RUBBER, CMP #### [facility] [address] [place] [address] Dr. Argelia Baird MANUAL DIFF REQ NO Normal [facility] Comment on above: Performed By: #### B FINNISH RUBBER, CMP #### [facility] [address] [place] [address] Dr. Argelia Baird MCH (RBC) [Entitic mass] 28.9 pg Normal 26.7-34.0 [facility] Comment on above: Performed By: #### B FINNISH RUBBER, CMP #### [facility] [address] [place] [address] Dr. Argelia Baird MCHC (RBC) [Mass/Vol] 31.2 g/dL Normal 29.9-35.2 [facility] Comment on above: Performed By: #### B FINNISH RUBBER, CMP #### [facility] [address] [place] [address] Dr. Argelia Baird MCV (RBC) [Entitic vol] 92.7 fL Normal 81.0-99.0 [facility] Comment on above: Performed By: #### B FINNISH RUBBER, CMP #### [facility] [address] [place] [address] Dr. Argelia Baird MONO # 0.9 103/ul Critically high 0.3-0.8 [facility] Comment on above: Performed By: #### B FINNISH RUBBER, CMP #### [facility] [address] [place] [address] Dr. Argelia Baird Monocytes/100 WBC (Bld) 11.2 % Normal 1.7-12.0 [facility] Comment on above: Performed By: #### B FINNISH RUBBER, CMP #### [facility] [address] [place] [address] Dr. Argelia Baird NEUT # 5.4 103/ul Normal 1.4-6.5 [facility] Comment on above: Performed By: #### B FINNISH RUBBER, CMP #### [facility] [address] [place] [address] Dr. Argelia Baird Neutrophils/100 WBC (Bld) 70.1 % Normal 43.0-75.0 [facility] Comment on above: Performed By: #### B FINNISH RUBBER, CMP #### [facility] [address] [place] [address] Dr. Argelia Baird Platelet mean volume (Bld) [Entitic vol] 9.1 fL Critically low 9.5-13.5 [facility] Comment on above: Performed By: #### B FINNISH RUBBER, CMP #### [facility] [address] [place] [address] Dr. Argelia Baird PLT 319 103/ul Normal 150-450 [facility] Comment on above: Performed By: #### B FINNISH RUBBER, CMP #### [facility] [address] [place] [address] Dr. Argelia Baird RBC 4.50 106/ul Normal 4.20-5.40 [facility] Comment on above: Performed By: #### B FINNISH RUBBER, CMP #### [facility] [address] [place] [address] Dr. Argelia Baird WBC 7.7 103/ul Normal 4.0-11.0 [facility] Comment on above: Performed By: #### B FINNISH RUBBER, CMP #### [facility] [address] [place] [address] Dr. Argelia Baird PROF 14(COMP METB)on 022 Albumin [Mass/Vol] 3.6 g/dL Normal 3.4-5.0 [facility] Comment on above: Performed By: #### B FINNISH RUBBER, CMP #### [facility] [address] [place] [address] Dr. Argelia Baird Albumin/Globulin [Mass ratio] 1.1 {ratio} Normal [facility] Comment on above: Performed By: #### B FINNISH RUBBER, CMP #### [facility] [address] [place] [address] Dr. Argelia Baird ALP [Catalytic activity/Vol] 123 U/L Critically high 46-116 [facility] Comment on above: Performed By: #### B FINNISH RUBBER, CMP #### [facility] [address] [place] [address] Dr. Argelia Baird ALT [Catalytic activity/Vol] 45 U/L Normal 14-59 [facility] Comment on above: Performed By: #### B FINNISH RUBBER, CMP #### [facility] [address] [address] [address] Argelia Baird Anion gap [Moles/Vol] 6.0 mmol/L Normal [facility] Comment on above: Performed By: #### B FINNISH RUBBER, CMP #### [facility] [address] [address] [address] Argelia Baird AST [Catalytic activity/Vol] 28 U/L Normal 15-37 [facility] Comment on above: Performed By: #### B FINNISH RUBBER, CMP #### [facility] [address] [address] [address] Argelia Baird Bilirubin [Mass/Vol] 1.0 mg/dL Normal 0.2-1.0 [facility] Comment on above: Performed By: #### B FINNISH RUBBER, CMP #### [facility] [address] [place] [address] Dr. Argelia Baird Calcium [Mass/Vol] 8.6 mg/dL Normal 8.5-10.1 [facility] Comment on above: Performed By: #### B FINNISH RUBBER, CMP #### [facility] [address] [place] [address] Dr. Argelia Baird Chloride [Moles/Vol] 99 mmol/L Normal 98-107 [facility] Comment on above: Performed By: #### B FINNISH RUBBER, CMP #### [facility] [address] [place] [address] Dr. Argelia Baird CO2 [Moles/Vol] 34.0 mmol/L Critically high 21.0-32.0 [facility] Comment on above: Performed By: #### B FINNISH RUBBER, CMP #### [facility] [address] [place] [address] Dr. Argelia Baird Creatinine [Mass/Vol] 1.11 mg/dL Critically high 0.55-1.02 [facility] Comment on above: Performed By: #### B FINNISH RUBBER, CMP #### [facility] [address] [place] [address] Dr. Argelia Baird EGFR-AF GREENLANDIC >60 Normal >=60 [facility] Comment on above: Performed By: #### B FINNISH RUBBER, CMP #### [facility] [address] [address] [address] Argelia Baird EGFR-NON AF GREENLANDIC 50 mL/min/1.73m2 Critically low >=60 [facility] Comment on above: Performed By: #### B FINNISH RUBBER, CMP #### [facility] [address] [address] [address] Argelia Baird Globulin (S) [Mass/Vol] 3.4 g/dL Normal [facility] Comment on above: Performed By: #### B FINNISH RUBBER, CMP #### [facility] [address] [address] [address] Argelia Baird Glucose [Mass/Vol] 84 mg/dL Normal 74-106 [facility] Comment on above: Performed By: #### B FINNISH RUBBER, CMP #### [facility] [address] [place] [address] Dr. Argelia Baird Potassium [Moles/Vol] 3.0 mmol/L Critically low 3.5-5.1 [facility] Comment on above: Performed By: #### B FINNISH RUBBER, CMP #### [facility] [address] [address] [address] Argelia Baird Protein [Mass/Vol] 7.0 g/dL Normal 6.1-8.2 [facility] Comment on above: Performed By: #### B FINNISH RUBBER, CMP #### [facility] [address] [address] [address] Argelia Baird Sodium [Moles/Vol] 136 mmol/L Normal 136-145 [facility] Comment on above: Performed By: #### B FINNISH RUBBER, CMP #### [facility] [address] [address] [address] Argelia Baird Urea nitrogen [Mass/Vol] 30.0 mg/dL Critically high 7.0-18.0 [facility] Comment on above: Performed By: #### B FINNISH RUBBER, CMP #### [facility] [address] [address] [address] Argelia Baird Urea nitrogen/Creatinine [Mass ratio] 27.0 mg/mg Normal [facility] Comment on above: Performed By: #### B FINNISH RUBBER, CMP #### [facility] [address] [place] [address] Dr. Argelia Baird BNPon 09-19-2021 Natriuretic peptide B (Bld) [Mass/Vol] 199.0 pg/mL Normal <=900.0 [facility] Comment on above: Performed By: #### C MREP #### [facility] [address] [place] [address] Dr. Argelia Baird CARDIAC JAMES 3-6on 2 CK [Catalytic activity/Vol] 90 U/L Normal 26-192 [facility] Comment on above: Performed By: #### B FINNISH RUBBER, CMP #### [facility] [address] [place] [address] Dr. Argelia Baird CK.MB [Mass/Vol] 1.84 ng/mL Normal <=3.60 [facility] Comment on above: Performed By: #### B FINNISH RUBBER, CMP #### [facility] [address] [place] [address] Dr. Argelia Baird HSTROP 14.1 pg/mL Normal 4.0-51.3 [facility] Comment on above: Result Comment: CUT- OFF POINTS HAVE BEEN ESTABLISHED BASED ON THE FOURTH UNIVERSAL DEFINITIONS OF MYOCARDIAL INFARCTION. THE UPPER REFERENCE LIMIT (URL) OF TROPONIN, DEFINED THE 99TH PERCENTILE OF cTnI DISTRIBUTION IN A REFERENCE POPULATION, HAS BEEN CONFIRMED THE DECISION THRESHOLD FOR [place] DIAGNOSIS. Performed By: #### B FINNISH RUBBER, CMP #### [facility] [address] [place] [address] Dr. Argelia Baird CK [Catalytic activity/Vol] 106 U/L Normal 26-192 [facility] Comment on above: Performed By: #### C MREP #### [facility] [address] [place] [address] Dr. Argelia Baird CK.MB [Mass/Vol] 1.93 ng/mL Normal <=3.60 [facility] Comment on above: Performed By: #### C MREP #### [facility] [address] [place] [address] Dr. Argelia Baird HSTROP 15.0 pg/mL Normal 4.0-51.3 [facility] Comment on above: Result Comment: CUT- OFF POINTS HAVE BEEN ESTABLISHED BASED ON THE FOURTH UNIVERSAL DEFINITIONS OF MYOCARDIAL INFARCTION. THE UPPER REFERENCE LIMIT (URL) OF TROPONIN, DEFINED THE 99TH PERCENTILE OF cTnI DISTRIBUTION IN A REFERENCE POPULATION, HAS BEEN CONFIRMED THE DECISION THRESHOLD FOR [place] DIAGNOSIS. Performed By: #### C MREP #### [facility] [address] [place] [address] Dr. Argelia Baird CARDIAC JAMES ADMITon 022 CK [Catalytic activity/Vol] 127 U/L Normal 26-192 [facility] Comment on above: Performed By: #### C MREP #### [facility] [address] [place] [address] Dr. Argelia Baird CK.MB [Mass/Vol] 1.94 ng/mL Normal <=3.60 [facility] Comment on above: Performed By: #### C MREP #### [facility] [address] [place] [address] Dr. Argelia Baird MAU 62 ng/mL Normal 9-82 [facility] Comment on above: Performed By: #### C MREP #### [facility] [address] [place] [address] Dr. Argelia Baird CBC AUTO DIFFon 09-19-2021 BASO # 0.1 103/ul Normal 0.0-0.1 [facility] Comment on above: Performed By: #### C MREP #### [facility] [address] [place] [address] Dr. Argelia Baird Basophils/100 WBC (Bld) 0.7 % Normal 0.2-2.0 [facility] Comment on above: Performed By: #### C MREP #### [facility] [address] [place] [address] Dr. Argelia Baird EO # 0.3 103/ul Normal 0.0-0.7 [facility] Comment on above: Performed By: #### C MREP #### [facility] [address] [place] [address] Dr. Argelia Baird Eosinophils/100 WBC (Bld) 3.9 % Normal 0.9-7.0 [facility] Comment on above: Performed By: #### C MREP #### [facility] [address] [place] [address] Dr. Argelia Baird Erythrocyte distribution width (RBC) [Ratio] 13.9 % Normal 11.0-15.0 [facility] Comment on above: Performed By: #### C MREP #### [facility] [address] [place] [address] Dr. Argelia Baird Hematocrit (Bld) [Volume fraction] 43.7 % Normal 36.0-48.0 [facility] Comment on above: Performed By: #### C MREP #### [facility] [address] [place] [address] Dr. Argelia Baird Hemoglobin (Bld) [Mass/Vol] 14.1 g/dL Normal 12.0-16.0 [facility] Comment on above: Performed By: #### C MREP #### [facility] [address] [place] [address] Dr. Argelia Baird IG # 0.03 10e3/ul Normal 0.00-0.03 [facility] Comment on above: Performed By: #### C MREP #### [facility] [address] [place] [address] Dr. Argelia Baird IG % 0.4 % Normal 0.0-0.5 [facility] Comment on above: Performed By: #### C MREP #### [facility] [address] [place] [address] Dr. Argelia Baird LYMPH # 1.2 103/ul Normal 1.2-3.8 [facility] Comment on above: Performed By: #### C MREP #### [facility] [address] [place] [address] Dr. Argelia Baird Lymphocytes/100 WBC (Bld) 14.4 % Critically low 20.5-60.0 [facility] Comment on above: Performed By: #### C MREP #### [facility] [address] [place] [address] Dr. Argelia Baird MANUAL DIFF REQ NO Normal [facility] Comment on above: Performed By: #### C MREP #### [facility] [address] [place] [address] Dr. Argelia Baird MCH (RBC) [Entitic mass] 28.9 pg Normal 26.7-34.0 [facility] Comment on above: Performed By: #### C MREP #### [facility] [address] [place] [address] Dr. Argelia Baird MCHC (RBC) [Mass/Vol] 32.3 g/dL Normal 29.9-35.2 [facility] Comment on above: Performed By: #### C MREP #### [facility] [address] [place] [address] Dr. Argelia Baird MCV (RBC) [Entitic vol] 89.5 fL Normal 81.0-99.0 [facility] Comment on above: Performed By: #### C MREP #### [facility] [address] [place] [address] Dr. Argelia Baird MONO # 0.8 103/ul Normal 0.3-0.8 [facility] Comment on above: Performed By: #### C MREP #### [facility] [address] [place] [address] Dr. Argelia Baird Monocytes/100 WBC (Bld) 9.7 % Normal 1.7-12.0 [facility] Comment on above: Performed By: #### C MREP #### [facility] [address] [place] [address] Dr. Argelia Baird NEUT # 6.1 103/ul Normal 1.4-6.5 [facility] Comment on above: Performed By: #### C MREP #### [facility] [address] [place] [address] Dr. Argelia Baird Neutrophils/100 WBC (Bld) 70.9 % Normal 43.0-75.0 [facility] Comment on above: Performed By: #### C MREP #### [facility] [address] [place] [address] Dr. Argelia Baird Platelet mean volume (Bld) [Entitic vol] 9.2 fL Critically low 9.5-13.5 [facility] Comment on above: Performed By: #### C MREP #### [facility] [address] [place] [address] Dr. Argelia Baird PLT 342 103/ul Normal 150-450 [facility] Comment on above: Performed By: #### C MREP #### [facility] [address] [place] [address] Dr. Argelia Baird RBC 4.88 106/ul Normal 4.20-5.40 [facility] Comment on above: Performed By: #### C MREP #### [facility] [address] [place] [address] Dr. Argelia Baird WBC 8.6 103/ul Normal 4.0-11.0 [facility] Comment on above: Performed By: #### C MREP #### [facility] [address] [place] [address] Dr. Argelia Baird Covid-19 PCR (CVDTB)on SARS-CoV-2 (COVID-19) RNA FOX+probe Ql (Unsp spec) Not detected Normal NOT DETECTED [facility] Comment on above: Result Comment: When diagnostic testing is negative, the possibility of a false negative should be considered in the context of a patient's recent exposures and the presence of clinical signs and symptoms consistent with SARS-CoV-2. This test is not yet approved or cleared by the [place] FDA. When there are no FDA-approved or cleared tests available, and other criteria are met, FDA can make tests available under an emergency access mechanism called an Emergency Use Authorization (EUA). The EUA for this test is supported by the [place] of Health and Human Service's declaration that circumstances exist to justify the emergency use of in vitro diagnostics for the detection and/or diagnosis of the virus that causes COVID-19. This EUA will remain in effect for the duration of the COVID-19 declaration justifying emergency of IVDs, unless it is terminated or revoked by the FDA (after which the test may no longer be used). Performed By: #### C VDTBH #### [facility] [address] [place], [place] [address] Dr. Argelia Baird D-DIMERon 09-19-2021 D-DIMER 0.26 mg/L FEU Normal 0.19-0.50 [facility] Comment on above: Performed By: #### B FINNISH RUBBER, CMP #### [facility] [address] [address] [address] Argelia Baird D-DIMER COMMENTS SEE BELOW Normal [facility] Comment on above: Result Comment: Incr eases in D-Dimer concentration observed with thromboembolic events can be variable due to localization, size, and age of the thrombus. Therefore, a thromboembolic event cannot be diagnosed with certainty on the basis of the reference range. D-Dimers may also be elevated for a variety of disorders including: advanced age, , coronary disease, cancer, liver disease, infection, inflammation, hematoma, DIC, trauma, post-surgery, diabetes, thrombolytic or anticoagulant therapy, stress, and generalized hospitalization. Performed By: #### B FINNISH RUBBER, CMP #### [facility] [address] [address] [address] Argelia Baird ECHO LIMITED STUDYon 022 ECHO LIMITED STUDY Patient: ASHLEY SERRA Exam Date: 09/19/2021 : 1965 Gender:F Ordering : DR PATTI VALDEZ . Admission #: [id number] Family : Order #: [id number] CLICK HERE TO VIEW EXAM ECHOCARDIOGRAM REPORT PROCEDURE: CARDIO PULMONARY ECHO LIMITED STUDY INDICATIONS: Chest pain, PTCA, hypertension COMPARISON: None. DESCRIPTION: Limited ECHOCARDIOGRAM Real-time transthoracic echocardiography with 2D and M-mode performed. QUALITY: Technical quality was adequate. LEFT VENTRICLE: Normal chamber size. Mild concentric left ventricular hypertrophy. LV EF: Normal left ventricular ejection fraction, (>55%). DIASTOLIC: ATRIAL SEPTUM: LEFT ATRIUM: Normal chamber size. RIGHT ATRIUM: Normal chamber size. RIGHT VENTRICLE: Normal chamber size. Normal systolic function. TRICUSPID VALVE: Normal mobility and thickness. MITRAL VALVE: Normal mobility and thickness. AORTIC VALVE: Normal trileaflet appearance. Normal leaflet mobility. AORTIC ROOT: Normal diameter and appearance. PULMONIC VALVE: Not well visualized. PERICARDIUM: No evidence of pericardial effusion. IVC: PLEURA: CONCLUSION: 1. Normal ventricular systolic function. No evidence of wall motion abnormality. LVEF is 65-70%. 2. Aortic valve opens well. 3. No evidence of pericardial effusion. 4. Limited study performed with no Doppler interrogation, as requested. Adult Echocardiography Procedure Report Left Ventricle LVEDD (3.7 - 5.6 cm): 4.29 cm LVESD (2.2 - 4.0 cm): 2.49 cm LVIVS thickness (0.6 - 1.2 cm): 1.38 cm LVPW thickness (0.5 - 1.0 cm): 1.06 cm LVOT Area (cm2): 3.80 cm2 LVOT Diameter 2.20 cm Left Ventricular Ejection Fraction: 65-70 % Left Atrium Left Atrium Systolic Dimension: 4.80 cm Mitral Valve Right Ventricle Aorta AO Root Diam: 2.90 cm Aortic Valve Tricuspid Valve Pulmonic Valve Right Atrium Dictated by: Vidal Burnett M.D. on 09/19/2021 at 13:26 Approved by: Vidal Burnett M.D. on 09/19/2021 at 13:28 Normal [facility] ER URINE PROFILEon 2 Bilirubin Ql (U) Negative Normal NEGATIVE [facility] Comment on above: Performed By: #### B FINNISH RUBBER, CMP #### [facility] [address] [place] [address] Dr. Argelia Baird Clarity (U) CLEAR Normal CLEAR [facility] Comment on above: Performed By: #### B FINNISH RUBBER, CMP #### [facility] [address] [place] [address] Dr. Argelia Baird Color (U) LT. YELLOW Normal YELLOW [facility] Comment on above: Performed By: #### B FINNISH RUBBER, CMP #### [facility] [address] [place] [address] Dr. Argelia Baird ERUBandar A micrscopic examination will be performed if indicated. Normal [facility] Comment on above: Performed By: #### B FINNISH RUBBER, CMP #### [facility] [address] [place] [address] Dr. Argelia Baird Glucose Ql (U) >1000 Abnormal NEGATIVE [facility] Comment on above: Performed By: #### B FINNISH RUBBER, CMP #### [facility] [address] [place] [address] Dr. Argelia Baird Hemoglobin Ql (U) Negative Normal NEGATIVE [facility] Comment on above: Performed By: #### B FINNISH RUBBER, CMP #### [facility] [address] [place] [address] Dr. Argelia Baird Ketones Ql (U) Negative Normal NEGATIVE [facility] Comment on above: Performed By: #### B FINNISH RUBBER, CMP #### [facility] [address] [place] [address] Dr. Argelia Baird LEUKOCYTES Negative Normal NEGATIVE [facility] Comment on above: Performed By: #### B FINNISH RUBBER, CMP #### [facility] [address] [place] [address] Dr. Argelia Baird Nitrite Ql (U) Negative Normal NEGATIVE [facility] Comment on above: Performed By: #### B FINNISH RUBBER, CMP #### [facility] [address] [place] [address] Dr. Argelia Baird pH (U) 5.5 [pH] Normal 5-9 [facility] Comment on above: Performed By: #### B FINNISH RUBBER, CMP #### [facility] [address] [place] [address] Dr. Argelia Baird SPEC GRAVITY <=1.005 Abnormal 1.005-<=1.025 [facility] Comment on above: Performed By: #### B FINNISH RUBBER, CMP #### [facility] [address] [place] [address] Dr. Argelia Baird UA PROTEIN Negative Normal NEGATIVE/ TRACE [facility] Comment on above: Performed By: #### B FINNISH RUBBER, CMP #### [facility] [address] [place] [address] Dr. Argelia Baird UR MICRO IND NOT INDICATED Normal [facility] Comment on above: Performed By: #### B FINNISH RUBBER, CMP #### [facility] [address] [place] [address] Dr. Argelia Baird Urobilinogen Qn (U) 0.2 {Mp'U}/dL Normal 0.2 - 1. 0 [facility] Comment on above: Performed By: #### B FINNISH RUBBER, CMP #### [facility] [address] [place] [address] Dr. Argelia Baird PROTIMEon 09-19-2021 INR Coag (PPP) [Relative time] 1.03 {INR} Normal [facility] Comment on above: Performed By: #### B FINNISH RUBBER, CMP #### [facility] [address] [place] [address] Dr. Argelia Baird INR GUIDELINES SEE BELOW Normal [facility] Comment on above: Result Comment: MIGUEL RED INR: 2.0 - 3.0 CONDITIONS NOT LISTED BELOW 2.5 - 3.5 FOR PROSTHETIC HEART VALVE REPLACEMENT 2.5 - 3.5 RECURRENT THROMBOSIS Performed By: #### B FINNISH RUBBER, CMP #### [facility] [address] [place] [address] Dr. Argelia Baird PT Coag (PPP) [Time] 11.1 s Normal 9.0-11.6 [facility] Comment on above: Performed By: #### B FINNISH RUBBER, CMP #### [facility] [address] [place] [address] Dr. Argelia Baird PTTon 09-19-2021 aPTT Coag (Bld) [Time] 26.6 s Normal 22.3-36.2 [facility] Comment on above: Performed By: #### B FINNISH RUBBER, CMP #### [facility] [address] [place] [address] Dr. Argelia Baird TROPONIN, HIGH SENSITIVITYon 09-19-2021 HSTROP 15.1 pg/mL Normal 4.0-51.3 [facility] Comment on above: Result Comment: CUT- OFF POINTS HAVE BEEN ESTABLISHED BASED ON THE FOURTH UNIVERSAL DEFINITIONS OF MYOCARDIAL INFARCTION. THE UPPER REFERENCE LIMIT (URL) OF TROPONIN, DEFINED THE 99TH PERCENTILE OF cTnI DISTRIBUTION IN A REFERENCE POPULATION, HAS BEEN CONFIRMED THE DECISION THRESHOLD FOR [place] DIAGNOSIS. Performed By: #### C VDTB #### [facility] [address] [place] [address] Dr. Argelia Baird HSTROP 16.0 pg/mL Normal 4.0-51.3 [facility] Comment on above: Result Comment: CUT- OFF POINTS HAVE BEEN ESTABLISHED BASED ON THE FOURTH UNIVERSAL DEFINITIONS OF MYOCARDIAL INFARCTION. THE UPPER REFERENCE LIMIT (URL) OF TROPONIN, DEFINED THE 99TH PERCENTILE OF cTnI DISTRIBUTION IN A REFERENCE POPULATION, HAS BEEN CONFIRMED THE DECISION THRESHOLD FOR [place] DIAGNOSIS. Performed By: #### C MREP #### [facility] [address] [address] [address] Argelia Baird XR CHEST 1 Von 09-19-2021 XR CHEST 1 V EXAM: Chest x-ray HISTORY: . CHEST PAIN, UNSPECIFIED area COMPARISON: 07/25/2021 TECHNIQUE: AP portable upright view of the chest FINDINGS: This is an expiratory chest. Heart and vascularity are unremarkable. Right lung is unremarkable. There are a few linear markings in the left lung base. No consolidation is noted. EKG leads overlie the chest. IMPRESSION: 1. Expiratory chest. 2. There are a few linear markings in the left lung base consistent with atelectasis or scarring. 3. No focal infiltrates. Electronically authenticated by: AUNDREA GOSS Date: 2021-09-19 08:54 Normal [facility] CARDIAC JAMES ADMITon 022 CK [Catalytic activity/Vol] 67 U/L Normal 30-135 [facility] Comment on above: Performed By: #### B FINNISH RUBBER, CMP #### [facility] [address] [address] [address] Argelia Baird CK.MB [Mass/Vol] 1.66 ng/mL Normal <=2.37 [facility] Comment on above: Performed By: #### B FINNISH RUBBER, CMP #### [facility] [address] [address] [address] Argelia Baird HSTROP 92.9 pg/mL Critically high 4.0-35.5 [facility] Comment on above: Result Comment: CUT- OFF POINTS HAVE BEEN ESTABLISHED BASED ON THE FOURTH UNIVERSAL DEFINITIONS OF MYOCARDIAL INFARCTION. THE UPPER REFERENCE LIMIT (URL) OF TROPONIN, DEFINED THE 99TH PERCENTILE OF cTnI DISTRIBUTION IN A REFERENCE POPULATION, HAS BEEN CONFIRMED THE DECISION THRESHOLD FOR [place] DIAGNOSIS. Test Repeated Critical Value Verified Performed By: #### B FINNISH RUBBER, CMP #### [facility] [address] [address] [address] Argelia Baird MAU 45.0 ng/mL Normal <=61.5 [facility] Comment on above: Performed By: #### B FINNISH RUBBER, CMP #### [facility] [address] [address] [address] Argelia Baird ECHOCARDIO M/2D COMPLETEon 0 07-26-2021 ECHOCARDIO M/2D COMPLETE Patient: ANGIE SERRA Exam Date: 07/26/2021 : 1965 Gender:F Ordering : DR PATTI VALDEZ . Admission #: [id number] Family : Order #: [id number] CLICK HERE TO VIEW EXAM ECHOCARDIOGRAM REPORT PROCEDURE: CARDIO PULMONARY ECHOCARDIO M/2D COMP INDICATIONS: Shortness of breath COMPARISON: None. DESCRIPTION: COMPLETE ECHOCARDIOGRAM Real-time transthoracic echocardiography with 2D, M-mode, spectral and color flow Doppler performed. QUALITY: Technical quality was good. LEFT VENTRICLE: Normal chamber size. Mild concentric left ventricular hypertrophy. Calculated left ventricular ejection fraction is 55%. LV EF: Normal left ventricular ejection fraction, (55%). DIASTOLIC: Normal diastolic function. ATRIAL SEPTUM: LEFT ATRIUM: Normal chamber size. RIGHT ATRIUM: Normal chamber size. RIGHT VENTRICLE: Normal chamber size. Normal right ventricular systolic function. TRICUSPID VALVE: Normal mobility and thickness. No stenosis with trivial regurgitation. No evidence of pulmonary hypertension. RVSP 28 mmHg. MITRAL VALVE: Normal mobility and thickness. No mitral valve prolapse. No evidence of mitral valve stenosis. There is no mitral annular calcification. Trivial mitral regurgitation. AORTIC VALVE: Normal trileaflet appearance. No visible sclerosis. Normal leaflet mobility. No evidence of aortic valve stenosis. No aortic regurgitation. AORTIC ROOT: Normal diameter and appearance. PULMONIC VALVE: Normal thickness and mobility. No stenosis. No regurgitation. PERICARDIUM: No evidence of pericardial effusion. IVC: Collapses with inspirations. Normal size. PLEURA: CONCLUSION: 1. Normal ventricular function. LVEF is 60%. 2. No significant valvular dysfunction. 3. Normal right sided pressure. 4. No pericardial effusion. Adult Echocardiography Procedure Report Left Ventricle LVEDD (3.7 - 5.6 cm): 4.44 cm LVESD (2.2 - 4.0 cm): 3.37 cm LVIVS thickness (0.6 - 1.2 cm): 1.13 cm LVPW thickness (0.5 - 1.0 cm): 1.23 cm e': 10.70 cm/s E - e': 7 LVOT Area (cm2): 3.80 cm2 LVOT Diameter 2.20 cm Left Ventricular Ejection Fraction: 55 % Left Atrium LA Volume Index (2D A2C): 29.60 ml/m2 Left Atrium Systolic Dimension: 4.10 cm Left Atrium Systolic Area(A2C): 20.40 cm2 Left Atrium Systolic Area(A4C): 24.60 cm2 Left Atrium Systolic Volume(A2C): 87188 mm3 Left Atrium Systolic Volume(A4C): 27070 mm3 Mitral Valve MV E to A Ratio: 0.70 Deceleration Wright: 3560 mm/s2 Mitral Valve A-Wave Peak Velocity: 110.00 cm/s Mitral Valve E-Wave Peak Velocity: 75.00 cm/s Right Ventricle RV Internal Diastolic Dimension: 3.65 cm Aorta AO Root Diam: 3.10 cm Aortic Valve AoV Area (Peak Prem): 2.64 cm2 Aortic Valve Cusp Separation: 1.90 cm Peak Velocity(Antegrade Flow): 137.00 cm/s Peak Gradient(Antegrade Flow): 8 mm[Hg] Tricuspid Valve Peak Velocity (Regurgitant Flow): 228.00 cm/s, 214.00 cm/s Pulmonic Valve Peak Velocity: 102.00 cm/s Peak Gradient: 4 mm[Hg] Right Atrium Dictated by: Vidal Burnett M.D. on 07/27/2021 at 20:51 Approved by: Vidal Burnett M.D. on 07/27/2021 at 20:54 Normal [facility] PTT HEPARIN MONITORon 2021 aPTT Coag (Bld) [Time] 40.2 s Normal 39.5-54.2 [facility] Comment on above: Performed By: #### C MREP #### [facility] [address] [address] [address] Argelia Baird aPTT Coag (Bld) [Time] 31.2 s Critically low 39.5-54.2 [facility] Comment on above: Result Comment: Test Repeated Critical Value Verified Performed By: #### P TTHEP #### [facility] [address] [address] [address] 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 Argelia Baird TROPONIN, HIGH SENSITIVITYon 07-26-2021 HSTROP 77.3 pg/mL Critically high 4.0-35.5 [facility] Comment on above: Result Comment: CUT- OFF POINTS HAVE BEEN ESTABLISHED BASED ON THE FOURTH UNIVERSAL DEFINITIONS OF MYOCARDIAL INFARCTION. THE UPPER REFERENCE LIMIT (URL) OF TROPONIN, DEFINED THE 99TH PERCENTILE OF cTnI DISTRIBUTION IN A REFERENCE POPULATION, HAS BEEN CONFIRMED THE DECISION THRESHOLD FOR NH DIAGNOSIS. Performed By: #### C MREP #### [facility] [address] [place] [address] Dr. Argelia Baird BNPon 07-25-2021 Natriuretic peptide B (Bld) [Mass/Vol] 105.0 pg/mL Normal <=900.0 [facility] Comment on above: Performed By: #### B FINNISH RUBBER, CMP, CMADM #### [facility] [address] [place] [address] Dr. Argelia Baird CARDIAC JAMES 3-6on 2 CK [Catalytic activity/Vol] 70 U/L Normal 30-135 [facility] Comment on above: Performed By: #### B FINNISH RUBBER, CMP #### [facility] [address] [place] [address] Dr. Argelia Baird CK.MB [Mass/Vol] 1.63 ng/mL Normal <=2.37 [facility] Comment on above: Performed By: #### B FINNISH RUBBER, CMP #### [facility] [address] [place] [address] Dr. Argelia Baird HSTROP 113.0 pg/mL Critically high 4.0-35.5 [facility] Comment on above: Result Comment: CUT- OFF POINTS HAVE BEEN ESTABLISHED BASED ON THE FOURTH UNIVERSAL DEFINITIONS OF MYOCARDIAL INFARCTION. THE UPPER REFERENCE LIMIT (URL) OF TROPONIN, DEFINED THE 99TH PERCENTILE OF cTnI DISTRIBUTION IN A REFERENCE POPULATION, HAS BEEN CONFIRMED THE DECISION THRESHOLD FOR [place] DIAGNOSIS. TEST REPEATED. CRITICAL VALUE VERIFIED Performed By: #### B FINNISH RUBBER, CMP #### [facility] [address] [place], [place] [address] Dr. Argelia Baird CK [Catalytic activity/Vol] 299 U/L Critically high 30-135 [facility] Comment on above: Performed By: #### C MREP #### [facility] [address] [place], [place] [address] Dr. Argelia Baird CK.MB [Mass/Vol] 1.59 ng/mL Normal <=2.37 [facility] Comment on above: Performed By: #### C MREP #### [facility] [address] [address] [address] Argelia Baird HSTROP 87.6 pg/mL Critically high 4.0-35.5 [facility] Comment on above: Result Comment: CUT- OFF POINTS HAVE BEEN ESTABLISHED BASED ON THE FOURTH UNIVERSAL DEFINITIONS OF MYOCARDIAL INFARCTION. THE UPPER REFERENCE LIMIT (URL) OF TROPONIN, DEFINED THE 99TH PERCENTILE OF cTnI DISTRIBUTION IN A REFERENCE POPULATION, HAS BEEN CONFIRMED THE DECISION THRESHOLD FOR [place] DIAGNOSIS. Performed By: #### C MREP #### [facility] [address] [address] [address] Argelia Baird CARDIAC JAMES ADMITon 022 CK [Catalytic activity/Vol] 72 U/L Normal 30-135 [facility] Comment on above: Performed By: #### B FINNISH RUBBER, CMP #### [facility] [address] [address] [address] Argelia Baird CK.MB [Mass/Vol] 1.70 ng/mL Normal <=2.37 [facility] Comment on above: Performed By: #### B FINNISH RUBBER, CMP #### [facility] [address] [address] [address] Argelia Baird HSTROP 71.8 pg/mL Critically high 4.0-35.5 [facility] Comment on above: Result Comment: CUT- OFF POINTS HAVE BEEN ESTABLISHED BASED ON THE FOURTH UNIVERSAL DEFINITIONS OF MYOCARDIAL INFARCTION. THE UPPER REFERENCE LIMIT (URL) OF TROPONIN, DEFINED THE 99TH PERCENTILE OF cTnI DISTRIBUTION IN A REFERENCE POPULATION, HAS BEEN CONFIRMED THE DECISION THRESHOLD FOR NH DIAGNOSIS. Performed By: #### B FINNISH RUBBER, CMP #### [facility] [address] [place] [address] Dr. Argelia Baird MAU 41.0 ng/mL Normal <=61.5 [facility] Comment on above: Performed By: #### B FINNISH RUBBER, CMP #### [facility] [address] [place] [address] Dr. Argelia Baird CBC AUTO DIFFon 07-25-2021 BASO # 0.0 103/ul Normal 0.0-0.1 [facility] Comment on above: Performed By: #### B FINNISH RUBBER, CMP #### [facility] [address] [place] [address] Dr. Argelia Baird Basophils/100 WBC (Bld) 0.3 % Normal 0.2-2.0 [facility] Comment on above: Performed By: #### B FINNISH RUBBER, CMP #### [facility] [address] [place] [address] Dr. Argelia Baird EO # 0.4 103/ul Normal 0.0-0.7 [facility] Comment on above: Performed By: #### B FINNISH RUBBER, CMP #### [facility] [address] [place] [address] Dr. Argelia Baird Eosinophils/100 WBC (Bld) 4.7 % Normal 0.9-7.0 [facility] Comment on above: Performed By: #### B FINNISH RUBBER, CMP #### [facility] [address] [place] [address] Dr. Argelia Baird Erythrocyte distribution width (RBC) [Ratio] 14.3 % Normal 11.0-15.0 [facility] Comment on above: Performed By: #### B FINNISH RUBBER, CMP #### [facility] [address] [place] [address] Dr. Argelia Baird Hematocrit (Bld) [Volume fraction] 38.9 % Normal 36.0-48.0 [facility] Comment on above: Performed By: #### B FINNISH RUBBER, CMP #### [facility] [address] [place] [address] Dr. Argelia Baird Hemoglobin (Bld) [Mass/Vol] 12.2 g/dL Normal 12.0-16.0 [facility] Comment on above: Performed By: #### B FINNISH RUBBER, CMP #### [facility] [address] [place] [address] Dr. Argelia Baird IG # 0.04 10e3/ul Critically high 0.00-0.03 [facility] Comment on above: Performed By: #### B FINNISH RUBBER, CMP #### [facility] [address] [place] [address] Dr. Argelia Baird IG % 0.5 % Normal 0.0-0.5 [facility] Comment on above: Performed By: #### B FINNISH RUBBER, CMP #### [facility] [address] [place] [address] Dr. Argelia Baird LYMPH # 1.2 103/ul Normal 1.2-3.8 [facility] Comment on above: Performed By: #### B FINNISH RUBBER, CMP #### [facility] [address] [place] [address] Dr. Argelia Baird Lymphocytes/100 WBC (Bld) 13.3 % Critically low 20.5-60.0 [facility] Comment on above: Performed By: #### B FINNISH RUBBER, CMP #### [facility] [address] [place] [address] Dr. Argelia Baird MANUAL DIFF REQ NO Normal [facility] Comment on above: Performed By: #### B FINNISH RUBBER, CMP #### [facility] [address] [place] [address] Dr. Argelia Baird MCH (RBC) [Entitic mass] 29.8 pg Normal 26.7-34.0 [facility] Comment on above: Performed By: #### B FINNISH RUBBER, CMP #### [facility] [address] [place] [address] Dr. Argelia Baird MCHC (RBC) [Mass/Vol] 31.4 g/dL Normal 29.9-35.2 [facility] Comment on above: Performed By: #### B FINNISH RUBBER, CMP #### [facility] [address] [place] [address] Dr. Argelia Baird MCV (RBC) [Entitic vol] 95.1 fL Normal 81.0-99.0 [facility] Comment on above: Performed By: #### B FINNISH RUBBER, CMP #### [facility] [address] [place] [address] Dr. Argelia Baird MONO # 0.8 103/ul Normal 0.3-0.8 [facility] Comment on above: Performed By: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 your colonoscopy ? Take 4 Dulcolax tablets. ? 6 PM - Evening before your colonoscopy ? Drink 32 oz. of the mixed solution. ? Drink an 8 oz. glass of bowel preparation every 15 minutes for a total of 4 glasses. ? Fifteen (15) minutes later, drink an 8 oz. glass of of clear liquids every 15 minutes for a total of 2 glasses. ? You may continue to drink clear liquids till midnight. Part 2 ? On the day of your colonoscopy you may drink clear liquids up to (three) 3 hours prior to procedure. ? 4 hours before your colonoscopy ? Take another 32 oz. bottle of mixed solution. ? Drink an 8 oz. glass of bowel prep every 15 minutes for a total of 4 glasses. ? Fifteen (15) minutes later, drink an 8 oz. glass of clear liquids every 15 minutes for a total of 2 glasses. ? You may continue to drink clear liquids up to (three) 3 hours before your exam. 3 04/2019 Normal [facility] Vital Signs Date Time Vital Sign Value Performing Clinician Darlene rossi 03-16-2022 10:35-0400 Body weight [address] Work Phone: [facility] 01-09-2022 13:17-0400 Body height 165.[address] Work Phone: [facility] 01-09-2022 13:17-0400 Body weight 97.[address] Work Phone: [facility] 11-22-2021 17:00-0400 Body weight 114.76 kg [facility] Work Phone: [facility] 10-26-2021 09:52-0400 Body height 165.1 cm ANTONIETTA Snider MD Work Phone: [facility] 10-26-2021 09:52-0400 Body weight 118.98 kg ANTONIETTA Snider MD Work Phone: [facility] 10-26-2021 09:52-0400 Diastolic blood pressure 64 mm[Hg] ANTONIETTA Snider MD Work Phone: [facility] 10-26-2021 09:52-0400 Heart rate 79 /min ANTONIETTA Snider MD Work Phone: [facility] 10-26-2021 09:52-0400 SaO2% (BldA) [Mass fraction] 93 % ANTONIETTA Snider MD Work Phone: [facility] 10-26-2021 09:52-0400 Systolic blood pressure 118 mm[Hg] ANTONIETTA Snider MD Work Phone: [facility] 10-26-2021 08:23-0400 Body weight 113.[address] Work Phone: [facility] 09-25-2021 11:46-0400 Body height 165.[address] [facility] 09-25-2021 11:46-0400 Body weight 118.[address] [facility] 09-14-2021 09:03-0400 Diastolic blood pressure 69 mm[Hg] ANTONIETTA Snider MD Work Phone: [facility] 09-14-2021 09:03-0400 Systolic blood pressure 155 mm[Hg] ANTONIETTA Snider MD Work Phone: [facility] 09-14-2021 09:00-0400 Body height 165.1 cm ANTONIETTA Snider MD Work Phone: [facility] 09-14-2021 09:00-0400 Body weight 121.7 kg ANTONIETTA Snider MD Work Phone: [facility] 09-14-2021 09:00-0400 Heart rate 78 /min ANTONIETTA Snider MD Work Phone: [facility] 09-14-2021 09:00-0400 SaO2% (BldA) [Mass fraction] 97 % ANTONIETTA Snider MD Work Phone: [facility] 08-25-2021 11:44-0400 Body height 165.1 cm Danuta Alfredo [facility] 08-25-2021 11:44-0400 Body weight 119.3 kg [facility] Alfredo [facility] 08-07-2021 14:51-0400 Body height 165.1 cm Reed Leon MD Work Phone: [facility] 08-07-2021 14:51-0400 Body weight 121.56 kg Reed Leon MD Work Phone: [facility] 08-07-2021 14:51-0400 Diastolic blood pressure 88 mm[Hg] Reed Leon MD Work Phone: [facility] 08-07-2021 14:51-0400 Heart rate 98 /min Reed Leon MD Work Phone: [facility] 08-07-2021 14:51-0400 Respiratory rate 12 /min Reed Leon MD Work Phone: [facility] 08-07-2021 14:51-0400 SaO2% (BldA) [Mass fraction] 94 % Rede Leon MD Work Phone: [facility] 08-07-2021 14:51-0400 Systolic blood pressure 162 mm[Hg] Reed Leon MD Work Phone: [facility] Encounters Encounter Date Encounter Type Care Provider Facility Start: 06-18-2023 End: 06-18-2023 ambulatory PATTI VALDEZ Facility:[facility] Start: 12-27-2022 Refill Johanne ma MD Work Phone: Cardiology Comment on above: Rx Refills Start: 12-26-2022 Refill Johanne ma MD Work Phone: Cardiology Comment on above: Rx Refills Start: 12-14-2022 End: 12-14-2022 ambulatory PATTI VALDEZ Facility:[facility] Start: 07-30-2022 [facility] Work Phone: Neurology Comment on above: cmn Start: 07-12-2022 [facility] Work Phone: Neurology Comment on above: CMN Start: 03-16-2022 End: 03-16-[address] Work Phone: General Surgery Comment on above: BMI 30.0-30.9,adult (Primary Dx); Dietary counseling Start: 03-16-2022 End: 03-16-2022 Telemedicine consultation with patient Delmi Blue RD Work Phone: [facility] Start: 02-18-2022 Refill Reed aponte MD Work Phone: Cardiology Comment on above: Refill Request Start: 01-29-2022 Encounter for genera l adult medical examination without abnormal findings DR PATTI VALDEZ [facility] Start: 01-09-2022 End: 01-09-[address] Work Phone: General Surgery Comment on above: Reassessment; Patien t Education Start: 12-15-2021 End: 12-16-[address] PATTI VALDEZ Facility:[facility] Start: 12-15-2021 End: 12-16-2021 Encounter for general adult medical examination without abnormal findings DR PATTI VALDEZ Facility:[facility] Start: 11-26-2021 Refill Reed aponte MD Work Phone: Cardiology Comment on above: Refill Request Start: 11-22-2021 End: 11-22-2021 Admission to same day surgery center Fellow Gurinder Main Work Phone: General Surgery Comment on above: Bariatric surgery [facility] (Primary Dx) Start: 11-22-2021 End: 11-22-2021 Telemedicine consultation with patient Fellow Gurinder Main Work Phone: [facility] Start: 11-21-2021 Telephone encounter Kiah Cesar RN General Surgery Comment on above: Follow Up Start: 11-13-2021 Telephone encounter Rhonda Barnard RN General Surgery Comment on above: Returning Patient's Call Start: 11-13-2021 End: 11-13-2021 ambulatory Thad Morgan MD Work Phone: General Surgery Comment on above: Postoperative pain ( Primary Dx); Morbid obesity (HCC); Type 2 diabetes mellitus with morbid obesity (HCC) Start: 11-13-2021 End: 11-13-2021 Telemedicine consultation with patient Thad Morgan MD Work Phone: [facility] Start: 11-10-2021 Telephone encounter Rhonda Barnard RN General Surgery Comment on above: Preparations For Singh clarence Start: 11-09-2021 Telephone encounter Rhonda Barnard RN General Surgery Comment on above: Schedule Surgery Counseling Start: 11-08-2021 Admission to [facility] Rhonda Barnard RN General Surgery Comment on above: Surgery Start: 11-08-2021 E-mail encounter fro m caregiver Rhonda Barnard RN [facility] Start: 11-08-2021 Telephone encounter Rhonda Barnard RN General Surgery Comment on above: BMI Follow Up Start: 10-26-2021 End: 10-26-2021 Patient encounter gordon Snider MD Work Phone: Cardiology Comment on above: Heart failure with p reserved ejection fraction, unspecified HF chronicity (HCC) (Primary Dx); Primary hypertension; Mixed hyperlipidemia; Obesity, Class III, BMI 40-49.9 (morbid obesity) ([facility]); Coronary artery disease involving [place] coronary artery of [place] heart, unspecified whether angina present; S/P drug eluting coronary stent placement; Type 2 diabetes mellitus with hyperglycemia, with long-term current use of insulin (HCC); Gastroesophageal reflux disease without esophagitis Start: 10-26-2021 End: 10-26-[address] Work Phone: General Surgery Comment on above: BMI 40.0-44.9, adult (HCC) (Primary Dx); Dietary counseling Start: 10-26-2021 End: 10-26-2021 Telemedicine consultation with patient Delmi Blue YESENIA Work Phone: [facility] Start: 10-24-2021 End: 10-24-2021 ambulatory Soo Vyas DALE.CHIEF RESERVOIR ENGINEERING Work Phone: Neurology Comment on above: RAYMUNDO (obstructive sle ep apnea) (Primary Dx); Vitamin D deficiency Start: 10-24-2021 End: 10-24-2021 Telemedicine consultation with patient Soo Vyas APRN.CHIEF RESERVOIR ENGINEERING Work Phone: [facility] Start: 10-20-2021 ambulatory Reed aponte MD Work Phone: Cardiology Comment on above: Entresto Start: 10-05-2021 End: 10-05-2021 ambulatory Reed Leon MD Work Phone: Cardiology Comment on above: Heart failure with p reserved ejection fraction, unspecified HF chronicity (HCC) (Primary Dx) Start: 10-05-2021 End: 10-05-2021 Telemedicine consultation with patient Reed Leon MD Work Phone: [facility] Start: 09-28-2021 End: 09-29-[address] PATTI VALDEZ Facility:[facility]1 Start: 09-25-2021 End: 09-25-[address] General Surgery Comment on above: Diabetes mellitus ty pe 2 in obese (HCC) (Primary Dx); Dietary counseling and surveillance Start: 09-25-2021 End: 09-25-2021 Telemedicine consultation with patient Danuta Fuentes YESENIA [facility] Start: 09-20-2021 Telephone encounter Johanne Snider MD Work Phone: Cardiology Comment on above: Medication Authoriza tion (Entresto) Start: 09-19-2021 End: 09-20-[address] PATTI VALDEZ Facility:[facility] Start: 09-14-2021 End: 09-14-2021 Patient encounter procedure Johanne Snider MD Work Phone: Cardiology Comment on above: Acute on chronic hea rt failure with preserved ejection fraction (HCC) (Primary Dx); Primary hypertension; Mixed hyperlipidemia; Obesity, Class III, BMI 40-49.9 (morbid obesity) (HCC); Coronary artery disease involving [place] coronary artery of kan[place] heart, unspecified whether angina present; S/P drug eluting coronary stent placement; Type 2 diabetes mellitus with hyperglycemia, with long-term current use of insulin (HCC); Gastroesophageal reflux disease without esophagitis Start: 08-25-2021 End: 08-25-2021 ambulatory Danuta Benito Alfredo PATTERSON General Surgery Comment on above: Diabetes mellitus ty pe 2 in obese (HCC) (Primary Dx); Dietary counseling and surveillance Start: 08-25-2021 End: 08-25-2021 Telemedicine consultation with patient Danuta Fuentes RD [facility] Start: 08-18-2021 Telephone encounter Evangelist GRECO Comment on above: Follow Up Phone Call ( Follow Up Call) Start: 08-16-[address] PATTI VALDEZ Facility :[facility] Start: 08-15-[address] PATTI VALDEZ Facility :[facility] Start: 08-14-2021 Telephone encounter Seda GRECO Comment on above: Follow Up Phone Call (relate care discharge follow up-1st attempt-no contact-left ) Start: 08-12-2021 Telephone encounter Paris franks MD Work Phone: [facility] Comment on above: Insurance Authorizat ion Start: 08-07-2021 End: 08-07-2021 Patient encounter procedure Reed Leon MD Work Phone: Cardiology Comment on above: Dyspnea, unspecified type (Primary Dx) Start: 07-25-2021 End: 07-26-[address] PATTI VALDEZ Facility:[facility] Start: 06-20-[address] PATTI VALDEZ Facility :[facility] Start: 06-01-2021 End: 06-02-[address] DOCTOR LEMUS Facility:[facility] Procedures Date Procedure Procedure Detail Performing Clinician Start: 12-11-2021 Adult depression screening assessment Lisbet Hernandez RD Work Phone: Start: 11-13-2021 Antibody screen Comment on above: Order Comment: Speci men Type: BLOOD SPECIMEN Ordering Facility: [facility] Address: [address] [place], [place] [address] Performed By: #### T [id number] #### [facility] CLIA [id number] [address] [place] [address] Start: 10-19-2021 Adult depression screening assessment Reed Leon MD Work Phone: Start: 09-07-2021 Adult depression screening assessment ANTONIETTA Snider MD Work Phone: Start: 10-06-2020 History of placement of stent for coronary artery disease S/P drug eluting coronary stent placement Reed Leon MD Work Phone: Start: 07-01-2020 Colonoscopy Reed glover MD Work Phone: Start: 06-24-2020 Adult depression screening assessment Reed Leon MD Work Phone: History of placement of stent for coronary artery disease S/P drug eluting coronary stent placement Johanne Snider MD Work Phone: History of placement of stent for coronary artery disease S/P drug eluting coronary stent placement Johanne Snider MD Work Phone: Plan of Treatment Date Care Activity Detail Author Start: 12-15-2023 BP CONTROLLED (<130/80) BP CONTROLLE D (<130/80) [facility] Start: 01-18-2023 Influenza vaccination INFLUENZA (#1) [facility] Start: 12-11-2022 Adult depression screening assessment DEPRESSION SCREENING [facility] Start: 11-13-2022 BP CONTROLLED (<130/80) BP CONTROLLE D (<130/80) [facility] Start: 10-26-2022 BP CONTROLLED (<130/80) BP CONTROLLE D (<130/80) [facility] Start: 10-26-2022 Hepatitis B surface antibody level LDL CHOLESTEROL [facility] Start: 10-19-2022 Adult depression screening assessment DEPRESSION SCREENING [facility] Start: 09-07-2022 Adult depression screening assessment DEPRESSION SCREENING [facility] Start: 08-10-2022 PNEUMOCOCCAL (2 - PCV) PNEUMOCOCCAL (2 - PCV) [facility] Start: 05-20-2022 DEPRESSION ASSESSMENT DEPRESSION ASS ESSMENT [facility] Start: 02-15-2022 Hepatitis B surface antibody level LDL CHOLESTEROL [facility] Start: 02-13-2022 Hemoglobin A1c/Hemoglobin.total in Blood HBA1C [facility] Start: 01-18-2022 Influenza vaccination INFLUENZA (#1) [facility] Start: 12-08-2021 COVID-19 VACCINE (4 - Booster for Pfizer series) COVID-19 VACCINE (4 - Booster for Pfizer series) [facility] Start: 11-08-2021 Hemoglobin A1c/Hemoglobin.total in Blood HBA1C [facility] Start: 10-24-2021 End: 12-24-2021 VITAMIN D 25 HYDROXY VITAMIN D 25 HYDROXY Lab Routine Vitamin D deficiency Expected: 10/24/2021, Expires: 12/24/2021 [facility] Work Phone: Comment on above: Expected: 10/24/2021 , Expires: 12/24/2021 Start: 10-03-2021 COVID-19 VACCINE (4 - Booster for Pfizer series) COVID-19 VACCINE (4 - Booster for Pfizer series) [facility] Start: 10-03-2021 COVID-19 VACCINE (4 - Pfizer series) COVID-19 VACCINE (4 - Pfizer series) [facility] Start: 09-14-2021 End: 11-14-2021 Basic metabolic 2000 panel - Serum or Plasma BASIC METABOLIC PNL Lab Routine Acute on chronic heart failure with preserved ejection fraction (HCC) Coronary artery disease involving [place] coronary artery of [place] heart, unspecified whether angina present S/P drug eluting coronary stent placement Obesity, Class III, BMI 40-49.9 (morbid obesity) (HCC) Type 2 diabetes mellitus with hyperglycemia, with long-term current use of insulin ([facility]) Primary hypertension Mixed hyperlipidemia Gastroesophageal reflux disease without esophagitis Expected: 09/14/2021, Expires: 11/14/2021 [facility] Work Phone: Comment on above: Expected: 09/14/2021 , Expires: 11/14/2021 Start: 09-14-2021 End: 11-14-2021 LIPID PANEL BASIC LIPID PANEL BASIC Lab Routine Acute on chronic heart failure with preserved ejection fraction ([facility]) Coronary artery disease involving [place] coronary artery of [place] heart, unspecified whether angina present S/P drug eluting coronary stent placement Obesity, Class III, BMI 40-49.9 (morbid obesity) ([facility]) Type 2 diabetes mellitus with hyperglycemia, with long-term current use of insulin ([facility]) Primary hypertension Mixed hyperlipidemia Gastroesophageal reflux disease without esophagitis Expected: 09/14/2021, Expires: 11/14/2021 [facility] Work Phone: Comment on above: Expected: 09/14/2021 , Expires: 11/14/2021 Start: 09-14-2021 End: 11-14-2021 Natriuretic peptide.B prohormone N-Terminal [Mass/volume] in Serum or Plasma NT PRO BNP Lab Routine Acute on chronic heart failure with preserved ejection fraction (HCC) Coronary artery disease involving [place] coronary artery of [place] heart, unspecified whether angina present S/P drug eluting coronary stent placement Obesity, Class III, BMI 40-49.9 (morbid obesity) ([facility]) Type 2 diabetes mellitus with hyperglycemia, with long-term current use of insulin ([facility]) Primary hypertension Mixed hyperlipidemia Gastroesophageal reflux disease without esophagitis Expected: 09/14/2021, Expires: 11/14/2021 [facility] Work Phone: Comment on above: Expected: 09/14/2021 , Expires: 11/14/2021 Start: 07-01-2021 Colonoscopy COLONOSCOPY [facility] Start: 07-01-2021 COLORECTAL CANCER SCREENING COLORECTAL CANCER SCREENING [facility] Start: 06-24-2021 Adult depression screening assessment DEPRESSION SCREENING [facility] Start: 05-20-2021 DEPRESSION ASSESSMENT DEPRESSION ASS ESSMENT [facility] Start: 2013 SHINGRIX VACCINE (1 of 2) SHINGRIX VACCINE (1 of 2) [facility] Start: 2008 COLOGUARD (FIT-DNA) COLOGUARD (FIT-D NA) [facility] Start: [address] COLONOGRAPHY [facility] Start: 2008 FECAL OCCULT BLOOD FECAL OCCULT BLOO D [facility] Start: 2008 SIGMOIDOSCOPY SIGMOIDOSCOPY [facility] Start: 2003 Mammography MAMMOGRAM [facility] Start: 1993 HPV TESTING HPV TESTING [facility] Start: 1984 PAP TESTING PAP TESTING [facility] Start: 1982 HEPATITIS B (1 of 3 - Risk 3-dose series) HEPATITIS B (1 of 3 - Risk 3-dose series) [facility] Start: 1982 Urine microalbumin profile DTAP,TDAP,TD (1 - Tdap) [facility] Start: 1981 ANNUAL PCP TEAM BARREL CLEANER LAURY DISEASE VISIT ANNUAL PCP TEAM CHRONIC DISEASE VISIT [facility] Start: 1981 BP CONTROLLED (<130/80) BP CONTROLLE D (<130/80) [facility] Start: 1981 HEPATITIS C SCREENING HEPATITIS C SC REENING [facility] Start: 1981 HIV SCREENING HIV SCREENING [facility] Start: 1979 ONE PNEUMOVAX PRIOR TO AGE 65 ONE PNEUMOVAX PRIOR TO AGE 63 [facility] Start: 1973 3 comp foot exam completed DIABETIC FOOT EXAM [facility] Start: 1973 Hepatitis B screening URINE AL BUMIN:CREATININE RATIO [facility] Start: 1973 Hepatitis C antibody , confirmatory test DILATED RETINAL EXAM [facility] Start: 1963 HEPATITIS B (1 of 3 - 3-dose series) HEPATITIS B (1 of 3 - 3-dose series) [facility] Immunizations Immunization Date Immunization Notes Care Provider Fa cility 08-10-2021 pneumococcal polysaccharide vaccine, 23 valent Paris Long MD Work Phone: [facility] 08-08-2021 COVID-19 vaccine, ag e 12+ yr (PFIZER-BIONTECH - HITCHCOCK TOP) Paris Long MD Work Phone: [facility] Payers Date Payer Category Payer Unknown [employer] BLUE CARD PPO OOS [id number] 2022-Present [phone] [address] [place] [address] PPO [id number] 2022 Unknown [id number] 2020 Private Health Insurance [facility] CHOICE PLUS [id number] 2020-Present [phone] [address] [place] [address] HMO [id number] 2020 Private Health Insurance [facility] CHOICE PLUS [id number] 2020-Present [phone] [address] [place] [address] HMO [id number] 1963 Unknown [id number] 1963 Unknown [id number] 1963 Unknown [id number] 1963 Unknown [id number] 1963 Unknown [id number] 1963 Unknown [id number] 1963 Unknown [id number] 1963 Unknown [id number] 1959 Private Health Insurance [id number] 1959 Self-pay [id number] Social History Date Type Detail Facility Start: 07-14-2020 End: 09-14-2021 Tobacco smoking status NHIS Ex-smoker [facility] Work Phone: Start: 07-14-1969 End: 11-18-1983 History of tobacco use Current smoker [facility] Work Phone: Start: 06-08-2020 End: 07-14-2020 Cigarettes smoked current (pack per day) - Reported 0.5 [facility] Start: 07-14-2020 End: 09-14-2021 Tobacco use and exposure Smokeless tobacco non-user [facility] Work Phone: Start: 08-07-2021 End: 12-14-2022 Alcohol intake Current drinker of alcohol (finding) [facility] Start: 08-12-2020 History SDOH Alcohol Comment occasionally [facility] Start: 1965 Sex Assigned At Female [facility] Start: 07-28-2021 End: 11-14-2021 Exposure to SARS-CoV-2 (event) Not sure [facility] Start: 08-03-2021 End: 08-13-2021 Exposure to SARS-CoV-2 (event) Unable to assess [facility] Start: 07-14-1969 End: 11-18-1983 History of tobacco use Cigarette Smoker [facility] Work Phone: Start: 06-08-2020 End: 12-14-2022 Tobacco use panel [facility] Adult Depression Screening Assessment 0 [facility] Start: 06-02-2020 Gender identity Identifies as female gender (finding) [facility] Start: 06-02-2020 Sexual orientation Heterosexual (fin christopher) [facility] Clinical Notes 08-07-2021 to 12-27-2022 Telephone Encounter - Radha Morales - 12/27/2022 9:35 AM EDTTelephone Encounter - Radha Morales - 12/26/2022 12:12 PM EDTArshad Enriquez - 07/30/2022 3:27 PM EDTPatient Instructions Note Date & Type Note Facility 12-27-2022 Miscellaneous Notes Call from pharmacy requesting refill. Requested Prescriptions Pending Prescriptions Disp Refills aspirin, enteric coated (ASPIR-81) 81 mg EC tablet 90 tablet 3 Sig: Take 1 tablet by mouth once daily. Patient last seen 12/14/2022 Radha Morales documented in this encounter [facility] 12-26-2022 Miscellaneous Notes Call from pharmacy requesting refill. Requested Prescriptions Pending Prescriptions Disp Refills sacubitril-valsartan (ENTRESTO) 24-26 mg tablet 180 tablet 3 Sig: Take 1 tablet by mouth twice daily. Patient last seen 12/14/2022 Radha Morales documented in this encounter [facility] 12-14-2022 Note HNO ID: [id number] Author: Johanne Snider MD Service: ? Author Type: Physician Type: Progress Notes Filed: 12/14/2022 5:07 PM Note Text: [facility] Nataly Watt Department of Cardiovascular Medicine [facility] Section of Heart Failure and Transplantation Medicine PATIENT Angie Serra [address] [place] [address] [facility] [place] [address] [place] [address] REFERRING PROVIDER Michael Maciel [address] [facility] [address] CHIEF COMPLAINT Consult HISTORY OF PRESENT ILLNESS Angie Serra is a pleasant 56 year old White female who comes to [facility] for evaluation and management of Consult. The patient has been referred by Michael Maciel MD; a copy of this note will be provided by way of shared medical record and/or via regular mail. The date of his first clinic visit with me is September 14, 2021. In summary, Angie Serra is a 56 y/o female from [place], [place] following up after hospitalization. Pt has history of HFpEF, CAD s/p PCI in 10/06/20of mLAD, HTN, HLD, DM2, RAYMUNDO with CPAP, GERD; she was referred to us for evaluation and management of HFpEF. TE on admission 08/08 showing EF 55%, G1DD, septal/apical WMA, overall unchanged from previous on 07/2020. She underwent RHC/LHC on 08/11 showing stable moderate CAD, patent LAD stent, no evidence of significant microvascular dysfunction, elevated bilateral filling pressures with preserved cardiac output/index. She was started on diuretics and an Jardiance, which she recently ran out. INTERVAL HISTORY Last visit's recommendations were: Will refer to Ted Kaur for evaluation of RCA and LCx lesions while OFF isosorbide. Continue to follow all other prescribed medical therapies and recommendations. Return to clinic in 6-8 weeks for follow up. Since last's visit, the patient has been feeling very well. S/p bariatric surgery, has lost significant amount of weight already. On isosorbide, no longer having angina. She never heard back from Dr. Kaur; but it does not seem that she needs to at this point. No volume retention; improved MCCAIN. Improved BP control. Home SBP 110 - 130 mmHg, never gets below 90 mmHg. Home HR ranges 70 - 80 bpm, never falls below 60 bpm. GI doctor stop aspirin due to risk of stomach ulcers..., she has not been on it for over a year. REVIEW OF SYSTEMS CONSTITUTIONAL: No unintentional weight loss, malaise, or frequent fevers. No chronic fatigue. EYES: No acute vision symptoms. EARS, NOSE, MOUTH, THROAT: No acute auditive, nasal, oral, or pharyngeal symptoms. CARDIOVASCULAR: No angina. No dyspnea on exertion. No orthopnea. No lower extremity edema. No syncope. No palpitations. RESPIRATORY: No cough, hemoptysis, or wheezing. No dyspnea at rest. GASTROINTESTINAL: No vomiting or diarrhea. No abdominal pain. No melena or hematemesis. GENITOURINARY: No acute urinary frequency, or incontinence. No renal colic symptoms. MUSCULOSKELETAL: No acute joint pain or swelling. No acute severe back or muscle pain. INTEGUMENTARY: No new skin lesions, rash, or itching. NEUROLOGICAL: No major or recurrent headaches, paralysis, seizures, or tremors. PSYCHIATRIC: No major mood disorder, or recent major psychosocial stressor. ENDOCRINE: No cold or heat intolerance, polyuria, polydipsia, or goiter. HEMATOLOGIC/LYMPHATIC: No major bleeding episode. No swollen nodes. ALLERGIC/IMMUNOLOGIC: No recent major allergic reaction. ACTIVE MEDICAL PROBLEMS ACTIVE PROBLEM LIST Type 2 Diabetes Mellitus With Hyperglycemia, With Long-Term Current Use of Insulin ([facility]) Primary Hypertension Migraine Obesity, Class III, BMI >= 40 Morbid Obesity ([facility]) Mixed Hyperlipidemia Gastroesophageal Reflux Disease Without Esophagitis Diabetes Mellitus Type 2 in Obese ([facility]) Coronary Artery Disease Involving [place] Coronary Artery of [place] Heart S/P Drug Eluting Coronary Stent Placement Raymundo (Obstructive Sleep Apnea) Acute On Chronic Heart Failure With Preserved Ejection Fraction (Hcc) Heart Failure With Preserved Ejection Fraction ([facility]) Type 2 Diabetes Mellitus With Morbid Obesity (Hcc) Obesity CURRENT MEDICATIONS traMADol (ULTRAM) 50 mg tablet Take 50 mg by mouth three times daily as needed. carvedilol (COREG) 12.5 mg tablet Take 1 tablet by mouth twice daily with meals. sacubitril-valsartan (ENTRESTO) 24-26 mg tablet Take 1 tablet by mouth twice daily. ezetimibe (ZETIA) 10 mg tablet take 1 tablet by mouth once daily atorvastatin (LIPITOR) 80 mg tablet take 1 tablet by mouth once daily isosorbide mononitrate ER (IMDUR) 60 mg 24 hr tablet Take 60 mg by mouth once daily. vitamin b complex capsule Take 1 capsule by mouth once daily. empagliflozin (JARD (more content not included)... [facility] 07-30-2022 Note HNO ID: [id number] Author: Inga Enriquez Service: ? Author Type: ? Type: Progress Notes Filed: 07/31/2022 9:03 AM Note Text: CMN RECEIVED BY [employer] VIA FAX, COMPLETED, AND PLACED IN PROVIDER MAILBOX FOR SIGNATURE Inga Enriquez Special Education Associate II July 30, 2022 [employer] SENDING CMN: [employer] SIGNED AND DATED CMN, FAXED TO DME AND CONFIRMATION PAGE RECEIVED: 07/31/[address] [facility] 07-30-2022 History of Present illness Narrative CMN RECEIVED BY [employer] VIA FAX, COMPLETED, AND PLACED IN PROVIDER MAILBOX FOR SIGNATURE Inga Enriquez Special Education Associate II July 30, 2022 [employer] SENDING CMN: [employer] SIGNED AND DATED CMN, FAXED TO DME & CONFIRMATION PAGE RECEIVED: 07/31/2022 documented in this encounter [facility] 07-12-2022 Note HNO ID: [id number] Author: Osman Hutchison Service: ? Author Type: ? Type: Progress Notes Filed: 2022 7:17 AM Note Text: CMN RECEIVED BY [employer] VIA FAX, COMPLETED, AND PLACED IN PROVIDER MAILBOX FOR SIGNATURE Osman Hutchison, Administration Assistance 07/12/22 [employer] SENDING CMN: [facility] SIGNED AND DATED CMN, FAXED TO DME AND CONFIRMATION PAGE RECEIVED: 07/13/[address] [facility] 07-12-2022 History of Present illness Narrative CMN RECEIVED BY [employer] VIA FAX, COMPLETED, AND PLACED IN PROVIDER MAILBOX FOR SIGNATURE Osman Hutchison, Administration Assistance 07/12/22 [employer] SENDING CMN: [facility] SIGNED AND DATED CMN, FAXED TO DME & CONFIRMATION PAGE RECEIVED: 07/13/22 documented in this encounter [facility] 03-16-[address] - 03/16/2022 10:50 AM EDT Nutrition Intervention 03/16/2022: Modify type and amount of food consumed for meals and snacks: Continue with Phase IV The goal is to consume at least 82 grams of protein per day with the addition of adding vegetables. Consume 3-4 ounces of protein 3 times per day (3-4 ounces for breakfast; 3-4 ounces for lunch; 3-4 ounces for dinner). As an estimate, 1 ounce of protein is approximately 7 grams. For example, if you consume 3 ounces of chicken, this would equal approximately 21 grams of protein. Always eat your protein foods first before eating the vegetable. Do not begin eating your vegetable first. Vegetables contain little or no protein and protein is essential. Continue to consume sugar-free, noncarbonated, decaffeinated clear liquids in between high protein foods for a total of 64 ounces (8 cups) per day Follow the 30-Minute Rule to fluid intake: wait 30 minutes before and after your food to drink fluids. Important considerations about adding vegetables When incorporating vegetables, it is recommended that you begin with softly cooked vegetables first. Avoid vegetables that do not become soft when cooked. Avoid fibrous stalks like those found in asparagus, broccoli, celery, stalks of don lettuce, kale, etc. Be cautious of seeds and peels. You may introduce raw vegetables only after you can tolerate a variety of cooked vegetables. Remember to always check for food tolerance. Slowly increase your variety of choices only after you know that you can tolerate it. When eating raw vegetables, it is recommended that you first try softer vegetables such as broccoli florets, [place] lettuce, red-leaf lettuce or [place] lettuce. Remember to chew vegetables thoroughly (chew 25 times) and swallow only when chewing has made it into a mushy pureed consistency. If you have trouble with gas, avoid eating gas-producing vegetables such as onions, cauliflower, garlic, scallions, leeks, Royal sprouts and cabbage. Avoid starchy vegetables such as potatoes (sweet and white), yams, yucca, plantain and corn at this time. Vitamin/minerals: Take daily multivitamin with 200 % daily value for all vitamin/minerals plus VIt D3 3,000 IU, Vit B12 500 mcg, Iron 45 mg and calcium citrate 2642-1576 mg/day . It is okay to use combination vitamin/minerals to reduce pill volume. Page 43 of Your Guide to Surgery Nutrition Monitoring & Evaluation: BMI < 30 Criteria: Patient update, weight check Need for Follow up: 3 months, scheduling documented in this encounter [facility] 03-16-2022 History of Present illness Narrative [facility] Nutrition Therapy: Virtual Consult - Re-assessment This visit was performed virtually due to the COVID-19 epidemic as an effort to protect patients and minimize exposure. Consent from patient received to conduct visit virtually. This Team Access Model visit is a virtual encounter. It required patient-provider interaction for the medical decision making as documented below. PROGRESS: Nutrition Intervention (date of last encounter 01/09/22): 1. Continue to take all recommended vitamin/minerals including Bariatric Fusion Chewable Multivitamin (4x per day) OR consider switching to a daily multivitamin complete capsule (Bariatric Fusion OR [employer])and calcium citrate 9206-7085 mg/day 2. Protein goal: 73-91 grams protein/day 3. Fluid goal: 64 ounces per day (no carbonation, caffeine, calories, alcohol) 4. Exercise goal: increase as tolerated to goal of 200 minutes/week combination cardiovascular and strength training exercise. 5. Practice mindful eating habits-take small portions, eat slowly, chew thoroughly CHANGES IN TREATMENT: Patient met goal(s): Yes Actions to implement interventions: See assessment Diet Recall: Tolerating soft vegetables, playing around with raw vegetables Breakfast: protein shake Snack: Faroese yogurt Lunch: meat OR cottage cheese Snack: cottage cheese OR meat Dinner: meat of choice, cooked vegetables Snack: skips Beverages: decaf coffee, herbal tea, water (+64 oz)- fluids and food Alcohol: None Vitamins/Minerals: Bariatric MVI daily + Calcium citrate - by 2 hours Physical activity: Patient walking daily CLINICAL IMPRESSIONS: good ANTHROPOMETRICS Height per patient: 65 Weight per patient: 194# Most recent height and weight per EPIC Height: Last 1 Encounter Ht Readings: Date: Ht: 01/09/2022 165.1 cm (5' 5 ) Weight: Last 1 Encounter Wt Readings: Date: Wt: 01/09/2022 97.1 kg (214 lb) Body mass index is 32.28 kg/m . Resting Metabolic Rate: 1555 Malnutrition Screening Significant unintentional weight loss? No Eating less than 75% of usual intake for more than 2 weeks? No Potential Signs of Inflammation: no identifiable sources Nutritional status: RECOMMENDED MALNUTRITION DIAGNOSIS: NO MALNUTRITION IDENTIFIED Educational materials provided: None this visit Patient presents for follow up nutrition Virtual Consult. Since last nutrition assessment patient has lost 20 lbs, advanced diet. Tolerating phase IV of diet and discussed advancement to phase V. Patient with regular BM, is using stool softener. 4 months post op RYGB Net weight loss 41 (235 lbs initial) 17 % TWL - tracking appropriately. Pre-surgery weight: 256 pounds 20 pounds weight loss since last assessment (214 lbs) Diet recall indicates consistent intake with adequate protein. Gradually adding in cooked vegetables and tolerating well, also adding in raw. 800-1000 calories/day - below 80 g protein intake/day - slightly below 64 oz + fluid intake/day - adequate; from foods Taking appropriate vitamin/minerals. Labs not available yet for review. Resting Metabolic Rate: 1464 Energy needs for weight loss 1391-6327 (15-20 kcal/kg CBW) Protein needs: 82 grams protein per day (1.2 g/kg IBW kg) Exercise- adequate cardiovascular exercising Nutrition Diagnosis: Altered Gastrointestinal Tract Function, related to, S/P bariatric surgery, as evidenced by 4 months post RYGB . Nutrition Intervention 03/16/2022: Modify type and amount of food consumed for meals and snacks: Continue with Phase IV The goal is to consume at least 82 grams of protein per day with the addition of adding vegetables. Consume 3-4 ounces of protein 3 times per day (3-4 ounces for breakfast; 3-4 ounces for lunch; 3-4 ounces for dinner). As an estimate, 1 ounce of protein is approximately 7 grams. For example, if you consume 3 ounces of chicken, this would equal approximately 21 grams of protein. Always eat your protein foods first before eating the vegetable. Do not begin eating your vegetable first. Vegetables contain little or no protein and protein is essential. Continue to consume sugar-free, noncarbonated, decaffeinated clear liquids in between high protein foods for a total of 64 ounces (8 cups) per day Follow the 30-Minute Rule to fluid intake: wait 30 minutes before and after your food to drink fluids. Important considerations about adding vegetables When incorporating vegetables, it is recommended that you begin with softly cooked vegetables first. Avoid vegetables that do not become soft when cooked. Avoid fibrous stalks like those found in asparagus, broccoli, celery, stalks of don lettuce, kale, etc. Be cautious of seeds and peels. You may introduce raw vegetables only after you can tolerate a variety of cooked vegetables. Remember to always check for food tolerance. Slowly increase your variety of choices only after you know that you can tolerate it. When eating raw vegetables, it is recommended that you first try softer vegetables such as broccoli florets, [place] lettuce, red-leaf lettuce or [place] lettuce. Remember to chew vegetables thoroughly (chew 25 times) and swallow only when chewing has made it into a mushy pureed consistency. If you have trouble with gas, avoid eating gas-producing vegetables such as onions, cauliflower, garlic, scallions, leeks, [place] sprouts and cabbage. Avoid starchy vegetables such as potatoes (sweet and white), yams, yucca, plantain and corn at this time. Vitamin/minerals: Take daily multivitamin with 200 % daily value for all vitamin/minerals plus VIt D3 3,000 IU, Vit B12 500 mcg, Iron 45 mg and calcium citrate 1066-9393 mg/day . It is okay to use combination vitamin/minerals to reduce pill volume. Page 43 of Your Guide to Surgery Nutrition Monitoring & Evaluation: BMI < 30 Criteria: Patient update, weight check Need for Follow up: 3 months, scheduling Referred/Supervised by: Self/Kendrickin MNT Billing Type: Re-assess/15 min 1 unit Signed by: Delmi Blue RDN, SVETA, MFN documented in this encounter [facility] 02-19-2022 Miscellaneous Notes Pharmacy electronic RX request to request a refill on the medication(s) below: Requested Prescriptions Pending Prescriptions Disp Refills ezetimibe (ZETIA) 10 mg tablet [Pharmacy Med Name: EZETIMIBE 10 MG TABLET] 90 tablet 3 Sig: take 1 tablet by mouth once daily PHARMACY NAME [facility] / PHONE NUMBER: Pickup RX Physician's Name: Reed Leon M.D. Last seen in office: 10/05/21 If last appointment greater than one year or no follow up scheduled, sent to schedulers Patricia Rene 02/19/2022 documented in this encounter [facility] 01-09-[address] - 01/09/2022 1:18 PM EDT Your weight loss is: 2 months post op RYGB Net weight loss 21 pounds ( 235 lbs initial) 9% TWL - tracking as anticipated Pre-surgery weight: 256 pounds Nutrition Recommendations: 1. Continue to take all recommended vitamin/minerals including Bariatric Fusion Chewable Multivitamin (4x per day) OR consider switching to a daily multivitamin complete capsule (Bariatric Fusion OR [employer])and calcium citrate 2906-1100 mg/day 2. Protein goal: 73-91 grams protein/day 3. Fluid goal: 64 ounces per day (no carbonation, caffeine, calories, alcohol) 4. Exercise goal: increase as tolerated to goal of 200 minutes/week combination cardiovascular and strength training exercise. 5. Practice mindful eating habits-take small portions, eat slowly, chew thoroughly Patient is to follow-up: 2 months to access adherence to goals, [phone] documented in this encounter [facility] 01-09-2022 History of Present illness Narrative This visit was performed virtually due to the COVID-19 epidemic as an effort to protect patients and minimize exposure. Consent from patient received to conduct visit virtually. This Team Access Model visit is a virtual GROUP encounter. It required patient-provider interaction for the medical decision making as documented below. Patient reports weight (as measured by home scale) of 214 pounds. AMBULATORY PATIENT EDUCATION NOTE-Shared Nutrition Group TOPIC: LIFE STYLE CHANGES: Post-op weight loss surgery: Diet and Exercise READINESS TO LEARN COGNITIVE ABILITY: Alert and oriented MOTIVATION TO LEARN: Interested FAMILY SUPPORT: Unable to assess - Family not present INSTRUCTION PROVIDED TO: Patient PATIENT LEARNS BEST BY: Multiple Methods FACTORS AFFECTING LEARNING: None PHYSICAL LIMITATIONS AFFECTING LEARNING: None LEARNING RESPONSE DIAGNOSIS: Inadequate protein-energy intake, related to: s/p bariatric surgery, as evidenced by patient update, diet recall, and group discussion Overweight Obesity, related to; food/nutrition - related knowledge deficit, as evidenced by BMI above normative standard for age and gender Malnutrition Screening Significant unintentional weight loss? No Eating less than 75% of usual intake for more than 2 weeks? Yes , advancing diet per bariatric protocol Nutritional status: METHOD OF INSTRUCTION: Individual instruction Group class instruction PATIENT / FAMILY RESPONSE: Nutrition outcome statement: Expect attention to diet to assist with weight management and minimum 1200 calories/2 liters of fluids per day. 2 months post op RYGB Net weight loss 21 pounds ( 235 lbs initial) 9% TWL - tracking as anticipated Pre-surgery weight: 256 pounds Diet recall indicates consistent meal pattern with increased attention to protein intake and portion control. Following Phase 3 diet appropriately. Patient reports feeling well overall. 500-600 calories/day - insufficient 60-70 gm protein intake/day - slightly below recommendations 64 oz fluid intake/day - meeting needs Taking all vitamin/minerals(Bariatric Fusion 4x per day). Labs not yet available for review Resting Metabolic Rate:1555 Energy needs for weight loss [phone] (15-20 nikita/kg current weight) Protein needs: 73-91 grams protein per day (1.2 - 1.5 g/kg IBW kg) Exercise - ADLs, limited by knee pain, falling below recommendations Reviewed nutrition principles of: 1. Continue to take all recommended vitamin/minerals including Bariatric Fusion Chewable Multivitamin (4x per day) OR consider switching to a daily multivitamin complete capsule (Bariatric Fusion OR [facility])and calcium citrate 4159-2299 mg/day 2. Protein goal: 73-91 grams protein/day 3. Fluid goal: 64 ounces per day (no carbonation, caffeine, calories, alcohol) 4. Exercise goal: increase as tolerated to goal of 200 minutes/week combination cardiovascular and strength training exercise. 5. Practice mindful eating habits-take small portions, eat slowly, chew thoroughly Patient is to follow-up: 2 months to access adherence to goals, [phone] Nutrition Monitoring & Evaluation:BMI < 35 Criteria: weight check Need for Follow up: 2 months Appointment Start Time: 11:45 AM Appointment End Time: 12:29 PM Time Spent on Consult: 44 minutes - Group Lisbet Hernandez RD documented in this encounter [facility] 11-27-2021 Miscellaneous Notes Pharmacy electronic RX request to request a refill on the medication(s) below: Pending Prescriptions Disp Refills ATORVASTATIN 80 MG TABLET 90 tablet 3 Sig: take 1 tablet by mouth once daily IZABEL: Yes PHARMACY NAME [facility] / PHONE NUMBER: Pickup RX Physician's Name: Reed Leon M.D. Last seen in office: 10/05/2021 If last appointment greater than one year or no follow up scheduled, sent to schedulers No Tosha Rene 11/27/2021 documented in this encounter [facility] 11-22-2021 History of Present illness Narrative Metabolic Surgery Postoperative Virtual Clinic Visit Name: Angie Serra This visit was performed virtually via Zoom technology due to the COVID-19 epidemic as an effort to protect patients and minimize exposure.? Virtual Visit (Audio/Visual) I have discussed the nature of this visit with the patient which will occur via [facility] (Phone, Virtual Visit) and she agrees to proceed with this interaction . Index Surgery Date of Surgery: 11/14/2021 Surgeon: Thad Morgan MD Surgical Procedure: LAPAROSCOPIC GASTRIC RESTRICTIVE SURG W/ BYPASS & CAMMY-EN-Y 150CM OR LESS Pre-surgical weight: 116.1 kg (256 lb) HPI: Tolerating phase II well 64 oz of fluids 60 gm of proteins Had two BMs Blood glucose 98-110 , off lantus, did not need to use sliding scale Takes lovenox BID Off torsemide Activity: no formal exercise but walks often Today's Visit: There were no vitals taken for this visit. No weight on file for this encounter. Last Visit: Wt: 116.1 kg (256 lb) BMI: 42.60 kg/(m^2) Total weight loss: 11lb PHYSICAL EXAM: General Normal, healthy, cooperative, in no acute distress, obese Able to interact verbally by video conference Psych ORIENTATION: normal to time place, person and situation Mood/Affect: AFFECT AND MOOD: Normal Head/Neuro Normal size and shape Facial appearance normal Pulmonary respiratory effort normal Cardiovascular patient describes extremities normal, warm, no cyanosis,no clubbing, and no edema Abdominal Obese, Visible protrusions or hernias: No Incisions/scars: Healed, Skin abnormal lesions not visualized Motor patient seen sitting with Normal appearing strength and coordination Assessment A/P: Normal post-OP course Advance to phase III diet at two weeks post op Start bariatric multivitamins at that time Increase exercise activity Follow up with PCP for home meds adjustments Follow up with BMI Patient Active Problem List Obesity Type 2 diabetes mellitus with morbid obesity (HCC) Heart failure with preserved ejection fraction (HCC) Acute on chronic heart failure with preserved ejection fraction (HCC) RAYMUNDO (obstructive sleep apnea) Coronary artery disease involving [place] coronary artery of [place] heart S/P drug eluting coronary stent placement Morbid obesity (HCC) Mixed hyperlipidemia Gastroesophageal reflux disease without esophagitis Diabetes mellitus type 2 in obese (HCC) Obesity, Class III, BMI >= 40 Migraine Primary hypertension Type 2 diabetes mellitus with hyperglycemia, with long-term current use of insulin (HCC) Resolved Hospital Problems No resolved problems to display. DISPOSITION: Return 1 month to [facility] visit EDUCATION: Encouraged to continue with healthy lifestyle changes and incorporate cardiovascular and resistance training, Discussed weight loss expectations after bariatric and metabolic surgery, Advised PT to avoid NSAIDs, smoking tobacco given increased risk of marginal ulcers or Discussed importance of protein intake as per the RDN note REFERRALS: N/A LABS: Kulwinder Payne MD Advanced Laparoscopic & Bariatric Surgery Fellow Bariatric & Metabolic [place] [facility] documented in this encounter [facility] 11-21-2021 Miscellaneous Notes BMI SPECIALTY CARE COORDINATION TELEPHONE ENCOUNTER Received message that patient called to report drainage from surgical incision. Phoned patient to follow up. Spoke with patient and her (on speaker). They reported serosanguinous drainage from incision near umbilicus with surgical glue beginning to peel away. Drainage noted this afternoon with visible stain about 6 inches diameter on her clothing. Patient denied any fever, redness, swelling or warmth to area. Denied increased pain or tenderness. applied neosporin on gauze and loosely covered the area. Reviewed s/s of infection and discussed when to seek immediate medical attention. Patient scheduled for post-op with Fellow tomorrow. Instructed patient and to keep area clean and dry in the meantime. Understanding verbalized of all aforementioned material and they agreed with plan. documented in this encounter [facility] 11-13-2021 History of Present illness Narrative BARIATRIC SURGERY PREOPERATIVE VISIT NOTE Name: Angie Serra Medical Record: [id number] Encounter No.: [id number] This visit was performed virtually due to the COVID-19 epidemic as an effort to protect patients and minimize exposure. Patient gave me the verbal consent for the telehealth visit. Angie Serra is a 56 year old female seen in Bariatric Surgery clinic today for their final preoperative assessment. - DM - for more than 20 yrs,on three medications. - HTN - Hypercholesterolemia - OA - GERD - CAD Planned Procedure: Laparoscopic Cammy en-Y Gastric Bypass, liver biopsy, EGD PAST MEDICAL HISTORY: PAST MEDICAL HISTORY Diagnosis Date Congestive heart failure (HCC) Coronary artery disease Diabetes mellitus (HCC) 20 years Essential hypertension GERD (gastroesophageal reflux disease) Mixed hyperlipidemia Obstructive sleep apnea PAST SURGICAL HISTORY: PAST SURGICAL HISTORY Procedure Laterality Date PAST SURGICAL HISTORY OF hip surgery x2 PERCUTANEOUS CORONARY INTERVENTION REMOVAL GALLBLADDER 1999 TOTAL ABD HYSTERECTOMY+BLAD REPR 1998 SOCIAL HISTORY: Social History Tobacco Use Smoking status: Former Smoker Packs/day: 0.50 Years: 2.00 Pack years: 1.00 Types: Cigarettes Start date: 07/14/1969 Quit date: 11/1983 Years since quittin.0 Smokeless tobacco: Never Used Vaping Use Vaping Use: Never used Substance Use Topics Alcohol use: Yes Alcohol/week: 2.0 standard drinks Types: 1 Glasses of wine, 1 Shots of liquor per week Comment: occasionally Drug use: Never ALLERGIES: ALLERGIES No Known Allergies MEDICATIONS: Prior to Admission Medications: vitamin b complex capsule Take 1 capsule by mouth once daily. ondansetron (ZOFRAN) 4 mg tablet Take 1 tablet by mouth every 8 hours as needed for nausea/vomiting. oxyCODONE IR (ROXICODONE) 5 mg immediate release tablet Take 1 tablet by mouth every 8 hours as needed for pain for up to 3 days. potassium chloride (K-TAB) 10 mEq tablet Take 10 mEq by mouth twice daily. FREESTYLE DESIREE 14 DAY SENSOR kit apply 1 SENSOR to back OF UPPER ARM REMOVE AND REPLACE every 14 d... (REFER TO PRESCRIPTION NOTES). empagliflozin (JARDIANCE) 25 mg tablet Take 1 tablet by mouth daily with breakfast. torsemide (DEMADEX) 20 mg tablet Take 1 tablet by mouth once daily. sacubitril-valsartan (ENTRESTO) 24-26 mg tablet Take 1 tablet by mouth twice daily. carvedilol (COREG) 12.5 mg tablet Take 2 tablets by mouth twice daily with meals. LANTUS SOLOSTAR U-100 INSULIN 100 unit/mL (3 mL) Inject 30 Units subcutaneously as directed. CPAP Please Expedite for upcoming surgery. Settings 5 - 15 cm H2O, suitable mask per pt preference, chin strap, head gear, humidity, tubing, lifetime supplies. G47.33 RAYMUNDO ezetimibe (ZETIA) 10 mg tablet Take 1 tablet by mouth once daily. fremanezumab-vfrm (AJOVY SYRINGE SUBCUTANEOUS) Inject 1 Dose subcutaneously once every month. HUMALOG KWIKPEN INSULIN 100 unit/mL Inject 4 Units subcutaneously as directed. atorvastatin (LIPITOR) 80 mg tablet Take 1 tablet by mouth once daily. pantoprazole DR (PROTONIX) 40 mg tablet Take 1 tablet by mouth once daily. aspirin (ASPIR-81 ORAL) once daily. WELCHOL 625 mg tablet 1,875 mg once daily. SUMAtriptan (IMITREX) 100 mg tablet take 1 tablet by mouth AT ONSET OF HEADACHE may repeat in 2 hours... (REFER TO PRESCRIPTION NOTES). VISIT NOTE The patient was offered a surgery/procedure at a [facility]. The surgeon/proceduralist and patient have discussed in detail the risk of exposure to and/or potential harm posed by the COVID-19 virus with having a surgery/procedure at this time versus the risk of delaying the surgery/procedure. It is not possible to know either the risk of delaying the surgery or procedure or chance of getting an infection with perfect accuracy, but a joint decision was made between the patient and the surgeon/proceduralist to proceed at this time with the scheduled surgery/procedure as indicated on the consent form. We have extensively discussed the nature of these circumstances with the patient and have informed them of the risks associated with bariatric surgery including but not limited to postoperative bleeding, infection, deep vein thrombosis, pulmonary embolism, dehydration/vitamin deficiency/malnutrition, pneumonia, myocardial infarction, marginal ulceration, and bowel obstruction. Although we will perform appropriate precautions to minimize patient exposure and risk, by undergoing surgery during the COVID-19 pandemic, the patient understands and accepts the unpredictable nature of the COVID-19 virus and the possibility of risks specific to the COVID-19 virus including but not limited to pneumonia, respiratory failure, sepsis, blood clots in different organs, heart attack, stroke, multiple organ failure, and . All of these risk factors are especially heightened in patients with obesity. The patient understands and accepts these risks prior to proceeding with bariatric surgery. The patient had an opportunity to ask additional questions that were answered. The patient expressed that they understood. Prescriptions were explained and provided to the patient. Will continue her isosorbide after surgery. No ASA after gastric bypass surgery Thad Morgan MD Advanced Laparoscopic and Bariatric Surgery documented in this encounter [facility] 11-13-2021 Miscellaneous Notes BMI SPECIALTY CARE COORDINATION TELEPHONE ENCOUNTER Returning patient call; confirmed upcoming BMI appointments. Patient has BMI contact numbers to call if has any further questions or concerns. documented in this encounter [facility] 11-10-2021 Miscellaneous Notes BMI SPECIALTY CARE COORDINATION SURGERY PRE-OP EDUCATION NOTE AMBULATORY PATIENT EDUCATION NOTE TOPIC: SURVIVAL SKILLS: RYGB READINESS TO LEARN COGNITIVE ABILITY: Alert and oriented MOTIVATION TO LEARN: Eager FAMILY SUPPORT: High - Very involved in pt care INSTRUCTION PROVIDED TO: Patient PATIENT LEARNS BEST BY: Individual Instruction FACTORS AFFECTING LEARNING: None PHYSICAL LIMITATIONS AFFECTING LEARNING: None LEARNING RESPONSE DIAGNOSIS: Morbid Obesity METHOD OF INSTRUCTION: Individual instruction PATIENT / FAMILY RESPONSE: Verbalizes understanding of: INFECTION MANAGEMENT-Signs and symptoms of an infection and importance of contacting the physician PAIN MANAGEMENT-Effective strategies to manage pain in addition to pain medication POST-OPERATIVE INSTRUCTIONS-Correct actions to take to reduce postoperative complications PRE-OPERATIVE INSTRUCTIONS-Correct action to take to follow pre-operative instructions FOLLOW-UP PLAN: Patient instructed to call with any further issues SUPPLEMENTAL MATERIAL: directed to [facility] website REFERRAL (RECOMMENDATION): None Surgery Pre-Op Education Note in Nurse Visit Education video modules viewed by the patient: No Postop prescriptions will be sent electronically to pharmacy at time of pre op visit on 11/13/21 Postop Surgeon Visit scheduled: No message sent to scheduling team to arrange On-Call & Clinic Phone Number given to the Patient: Yes Pre surgery checklist reviewed: Yes Patient Instructions for the Liquid Diet: Day Before Surgery - Liquid Diet Instruction Review 1. Last Protein shake should be before 6 pm. 2. It is important that you stay hydrated - 64 ounces of fluid per day. 3. Drink a 28-32 ounce bottle of a regular (not sugar free) sport drink (Gatorade, Powerade, etc.) the night prior to surgery. If the sport drinks aren t tolerable, may substitute with no sugar added - no pulp juice - apple, cranberry, lemonade, white grape or orange. Day of Surgery Clear Liquid Diet Drink 12-20 ounces of a regular sport drink (or juice as above) stop liquids 2 hours before scheduled arrival time. Other Instructions Reviewed: Skin Preparation: Dial antibacterial soap/Hibiclens bottle & instructions, Lauren, wound care, vitamin & nutrients, activity restrictions post op, discharge instructions & surgical guide, incentive spirometry;diet progression-pattie phase I & II & 2wk liquid diet prior to surgery, activity level & pt responsibility during hospitalization. Sleep Apnea: patient states she is using cpap at least four hours every night and will bring with her to hospital Even if you don't have the diagnosis of sleep apnea, the pain medicine you receive and your weight put you at risk for breathing complications and apnea after surgery. After your operation, RT will assess you in the recovery room and again on the dickens. They will most likely ask you to wear a face mask that will deliver oxygen using some mild positive pressure. The machine will automatically adjust the amount of pressure you receive. Wearing the mask does not mean that you will need to go home with it or have the diagnosis of sleep apnea. It will only be used after surgery to maintain your oxygen levels. Do not take pain medication three hours before bedtime as it may cause breathing difficulty. If you are having pain at bedtime you may take two Extra Strength Tylenol. Rhonda Barnard RN documented in this encounter [facility] 11-10-[address] Snider: I have been in communication with her surgeon and other cardiologists about her. Patient is calling to report that she has been scheduled to have bariatric surgery next week. She wants to make sure that Dr. Snider is okay with that as he mentioned her possibly having another RHC. Please advise. Angie Serra can be reached at [phone]. documented in this encounter [facility] 11-09-2021 Miscellaneous Notes [facility] COORDINATION SURGERY APPROVAL CALL Received e-mail confirmation of insurance approval for bariatric surgery.Pre-operative call placed to the patient, this RN spoke with patient and agreed upon a surgery date of November 14 2021. Surgical episode request sent to [facility] surgery scheduling. Creatinine level 0.96 Patient instructed to start pre-op 800 calorie total protein liquid diet Atkins (5) daily beginning 2 weeks prior to surgery. - Stop all ASA and NSAID products, Jefferson 3 fish oil, herbal products such as ginko etc. Stop vitamins EXCEPT B COMPLEX- take this up to the day before surgery - Medication List reviewed and patient will contact prescribing physician regarding use of diuretics - Talk with your prescribing MD- stop when doing the unaltered LD because of ketosis and insulin - Talk with your prescribing MD - may need sliding scale while on pre-operative diet. - Patient denies use of estrogen products . Talk with your prescribing MD if you take the following - should be monitored closely during the preoperative liquid diet with most held at the start of the diet given the . ALL of these medications should AT LEAST be held the day prior to surgery. Actos Amaryl Glipizide Glucophage Metformin Anti-obesity medications - stop 1 week before surgery Phentermine Qsymia Contrave Vyvanse Diethylproprion Phendimetrazine Saxenda Wegovy SGLT2 inhibitors should be stopped 3-4 days before surgery - avoid using during the first weeks following bariatric surgery because of the risk of dehydration, Jardiance Farxiga Invokana - Patient tolerating C-PAP and advised to bring C-PAP mask and tubing DOS. - If you have been diagnosed with moderate/severe sleep apnea you must wear CPAP/BIPAP a minimum of 4 hours nightly 2 weeks before surgery,. It is very important to treat RAYMUNDO pre op as well as continuing to use the CPAP post operatively- Do not stop using the machine without prior testing. - Pt instructed to fax FMLA forms and allow 7-10 days for completion. Lauren video assigned and Pt will view Drop video during pre-op nurse visit. All questions and concerns addressed and patient verbalized understanding. - Patient case reviewed. All nutrition appointments completed, psychology clearance obtained, surgeon visit and procedure type verified, medical optimization obtained and all testing complete. Con ABO No ordered Rhonda Branard RN documented in this encounter [facility] 11-08-2021 Miscellaneous Notes Follow up call placed to patient, no answer phone; left voice message and MyChart message with my call back phone number. documented in this encounter [facility] 10-26-2021 History of Present illness Narrative Images from the original note were not included. [facility] Nataly Watt Department of Cardiovascular Medicine [facility] Section of Heart Failure and Transplantation Medicine PATIENT Angie Serra [address] [address] [facility] PRIMARY CARE PROVIDER Patti Valdez MD [address] [place] [id number] REFERRING PROVIDER Michael Maciel [address] [facility] [address] CHIEF COMPLAINT Consult HISTORY OF PRESENT ILLNESS Angie Serra is a pleasant 56 year old White female who comes to [facility] for evaluation and management of Consult. The patient has been referred by Michael Maciel MD; a copy of this note will be provided by way of shared medical record and/or via regular mail. The date of his first clinic visit with me is September 14, 2021. In summary, Angie Serra is a 56 y/o female from [place], [place] following up after hospitalization. Pt has history of HFpEF, CAD s/p PCI in 10/06/20of mLAD, HTN, HLD, DM2, RAYMUNDO with CPAP, GERD; she was referred to us for evaluation and management of HFpEF. TE on admission 08/08 showing EF 55%, G1DD, septal/apical WMA, overall unchanged from previous on 07/2020. She underwent RHC/LHC on 08/11 showing stable moderate CAD, patent LAD stent, no evidence of significant microvascular dysfunction, elevated bilateral filling pressures with preserved cardiac output/index. She was started on diuretics and an Jardiance, which she recently ran out. Her main complain is MCCAIN. HTN today. INTERVAL HISTORY Last visit's recommendations were: Will start Entresto 50 mg twice daily Will increase Empagliflozin to 25 mg daily Will stop Isosorbide Will stop Furosemide Will start Torsemide 20 mg daily Continue to follow all other prescribed medical therapies and recommendations. Return to clinic in 4 weeks for follow up with fasting labs. Since last's visit, the patient has been feeling well. Stopped isosorbide for 72 hs, and she developed angina. She subsequently restarted it, and has not had pain since. No volume retention; improved MCCAIN. Improved BP control. Home SBP 110 - 130 mmHg, never gets below 90 mmHg. Home HR ranges 70 - 80 bpm, never falls below 60 bpm. REVIEW OF SYSTEMS CONSTITUTIONAL: No unintentional weight loss, malaise, or frequent fevers. No chronic fatigue. EYES: No acute vision symptoms. EARS, NOSE, MOUTH, THROAT: No acute auditive, nasal, oral, or pharyngeal symptoms. CARDIOVASCULAR: No angina. Mild, but improved dyspnea on exertion. No orthopnea. No lower extremity edema. No syncope. No palpitations. RESPIRATORY: No cough, hemoptysis, or wheezing. No dyspnea at rest. GASTROINTESTINAL: No vomiting or diarrhea. No abdominal pain. No melena or hematemesis. GENITOURINARY: No acute urinary frequency, or incontinence. No renal colic symptoms. MUSCULOSKELETAL: No acute joint pain or swelling. No acute severe back or muscle pain. INTEGUMENTARY: No new skin lesions, rash, or itching. NEUROLOGICAL: No major or recurrent headaches, paralysis, seizures, or tremors. PSYCHIATRIC: No major mood disorder, or recent major psychosocial stressor. ENDOCRINE: No cold or heat intolerance, polyuria, polydipsia, or goiter. HEMATOLOGIC/LYMPHATIC: No major bleeding episode. No swollen nodes. ALLERGIC/IMMUNOLOGIC: No recent major allergic reaction. ACTIVE MEDICAL PROBLEMS ACTIVE PROBLEM LIST Type 2 Diabetes Mellitus With Hyperglycemia, With Long-Term Current Use of Insulin ([facility]) Primary Hypertension Migraine Obesity, Class III, BMI >= 40 Morbid Obesity ([facility]) Mixed Hyperlipidemia Gastroesophageal Reflux Disease Without Esophagitis Diabetes Mellitus Type 2 in Obese ([facility]) Coronary Artery Disease Involving [place] Coronary Artery of [place] Heart S/P Drug Eluting Coronary Stent Placement Raymundo (Obstructive Sleep Apnea) Acute On Chronic Heart Failure With Preserved Ejection Fraction (Hcc) Heart Failure With Preserved Ejection Fraction ([facility]) CURRENT MEDICATIONS potassium chloride (K-TAB) 10 mEq tablet Take 10 mEq by mouth twice daily. [employer] 14 DAY SENSOR kit apply 1 SENSOR to back OF UPPER ARM REMOVE AND REPLACE every 14 d... (REFER TO PRESCRIPTION NOTES). empagliflozin (JARDIANCE) 25 mg tablet Take 1 tablet by mouth daily with breakfast. torsemide (DEMADEX) 20 mg tablet Take 1 tablet by mouth once daily. sacubitril-valsartan (ENTRESTO) 24-26 mg tablet Take 1 tablet by mouth twice daily. carvedilol (COREG) 12.5 mg tablet Take 2 tablets by mouth twice daily with meals. LANTUS SOLOSTAR U-100 INSULIN 100 unit/mL (3 mL) Inject 30 Units subcutaneously as directed. CPAP Please Expedite for upcoming surgery. Settings 5 - 15 cm H2O, suitable mask per pt preference, chin strap, head gear, humidity, tubing, lifetime supplies. G47.33 RAYMUNDO ezetimibe (ZETIA) 10 mg tablet Take 1 tablet by mouth once daily. fremanezumab-vfrm (AJOVY SYRINGE SUBCUTANEOUS) Inject 1 Dose subcutaneously once every month. HUMALOG KWIKPEN INSULIN 100 unit/mL Inject 4 Units subcutaneously as directed. atorvastatin (LIPITOR) 80 mg tablet Take 1 tablet by mouth once daily. pantoprazole DR (PROTONIX) 40 mg tablet Take 1 tablet by mouth once daily. aspirin (ASPIR-81 ORAL) once daily. WELCHOL 625 mg tablet 1,875 mg once daily. SUMAtriptan (IMITREX) 100 mg tablet take 1 tablet by mouth AT ONSET OF HEADACHE may repeat in 2 hours... (REFER TO PRESCRIPTION NOTES). PAST MEDICAL HISTORY PAST MEDICAL HISTORY Diagnosis Date Congestive heart failure (HCC) Coronary artery disease Diabetes mellitus (HCC) 20 years Essential hypertension GERD (gastroesophageal reflux disease) Mixed hyperlipidemia Obstructive sleep apnea PAST SURGICAL HISTORY PAST SURGICAL HISTORY Procedure Laterality Date PAST SURGICAL HISTORY OF hip surgery x2 PERCUTANEOUS CORONARY INTERVENTION REMOVAL GALLBLADDER 1999 TOTAL ABD HYSTERECTOMY+BLAD REPR 1998 SOCIAL HISTORY Social History Tobacco Use Smoking status: Former Smoker Packs/day: 0.50 Years: 2.00 Pack years: 1.00 Types: Cigarettes Start date: 07/14/1969 Quit date: 11/1983 Years since quittin.9 Smokeless tobacco: Never Used Vaping Use Vaping Use: Never used Substance Use Topics Alcohol use: Yes Comment: occasionally Drug use: Never FAMILY HISTORY FAMILY HISTORY Problem Relation Age of Onset Diabetes Mother Hypertension Mother Obesity Mother Hyperlipidemia Mother Stroke Father Hypertension Father Diabetes Father Obesity Father Heart Attack Father Hyperlipidemia Father Heart Failure Father Cancer Father other ([id number]) Father Diabetes Sister Obesity Sister Hyperlipidemia Sister Hypertension Sister Heart Brother Diabetes Brother Hypertension Brother Obesity Brother Hyperlipidemia Brother other (Pci) Brother other (Pacemaker) Brother No Known Problems Brother Coronary Artery Disease Maternal Grandfather Diabetes Paternal Grandmother Hypertension Paternal Grandmother ALLERGIES ALLERGIES No Known Allergies PATIENT ENTERED DATA PROMIS Global Health - (T-Scores - the mean of general population = 50. Five points is a clinically meaningful difference.) 06/24/2020 09/07/2021 Physical T-Score 54.1 47.7 Mental T-Score 53.3 50.8 PHQ-9 06/24/2020 09/07/2021 10/19/2021 Score 1 4 3 KCCQ-12 Scores 09/07/2021 10/19/2021 Physical Limitation Score 87.5 (Class I Heart Failure ) 87.5 (Class I Heart Failure ) Symptom Frequency Score 79.17 (Class II Heart Failure ) 75 (Class II Heart Failure ) Quality of Life Score 50 (Class III Heart Failure) 75 (Class II Heart Failure ) Social Limitation Score 75 (Class II Heart Failure) 83.33 (Class II Heart Failure) Overall Summary Score 72.92 (Class II Heart Failure ) 80.21 (Class II Heart Failure ) PHYSICAL EXAMINATION BP 118/64 Pulse 79 Ht 165.1 cm (5' 5 ) Wt 119 kg (262 lb 4.8 oz) SpO2 93% BMI 43.65 kg/m CONSTITUTIONAL: Well appearing, in no acute distress. EYES: Pupils equally round and reactive to light, extraocular movements are grossly intact. EARS, NOSE, MOUTH, THROAT: Mucosas appear moist and intact. No obvious lesions. CARDIOVASCULAR: Regular and normal rate. Normal S1 and S2; no S3 or S4. No murmurs. No pericardial rub. No carotid bruit. Good capillary refill, no acrocyanosis. Peripheral pulses are normal throughout. JVP is normal. No lower extremity edema. RESPIRATORY: Lungs clear to auscultation; no significant wheezing, rhonchi, or rales. GASTROINTESTINAL: Abdomen is soft, non-tender, and non-distended. Bowel sounds are normal. GENITOURINARY: No costovertebral angle tenderness upon palpation; genital exam deferred. MUSCULOSKELETAL: No gross joint swelling, major deformity, or tenderness. No digital clubbing. Range of motion is grossly normal throughout. INTEGUMENTARY: Color, texture, and turgor are normal; no rashes or lesions. No jaundice. NEUROLOGICAL: Gait is grossly normal. Motor and sensory functions are grossly intact. PSYCHIATRIC: Alert and oriented to person, place, and time; lucid. Normal affect and insight. No significant mental retardation. Memory is grossly intact. ENDOCRINE: Thyroid and parotid glands are grossly normal. HEMATOLOGIC/LYMPHATIC: No major adenopathy, petechia, purpura, or ecchymoses. PERTINENT DIAGNOSTIC DATA COMPLETE BLOOD COUNT WBC (k/uL) Date Value 08/12/2021 8.02 08/11/2021 7.17 08/10/2021 7.55 02/15/2021 7.71 10/06/2020 7.28 07/14/2020 9.30 RBC (m/uL) Date Value 08/12/2021 4.14 08/11/2021 4.12 08/10/2021 4.27 02/15/2021 4.57 10/06/2020 4.90 07/14/2020 4.78 Hemoglobin (g/dL) Date Value 08/12/2021 12.1 08/11/2021 12.1 08/10/2021 12.7 02/15/2021 13.7 10/06/2020 14.6 07/14/2020 14.7 Hematocrit (%) Date Value 08/12/2021 38.1 08/11/2021 37.3 08/10/2021 39.4 02/15/2021 44.1 10/06/2020 46.1 07/14/2020 46.0 MCV (fL) Date Value 08/12/2021 92.0 08/11/2021 90.5 08/10/2021 92.3 02/15/2021 96.5 10/06/2020 94.1 07/14/2020 96.2 Platelet Count (k/uL) Date Value 08/12/2021 273 08/11/2021 264 08/10/2021 276 02/15/2021 329 10/06/2020 367 07/14/2020 396 BASIC METABOLIC PANEL Sodium (mmol/L) Date Value 08/12/2021 135 08/11/2021 138 08/10/2021 139 02/15/2021 142 10/07/2020 140 10/06/2020 141 Potassium (mmol/L) Date Value 08/12/2021 4.8 08/11/2021 4.3 08/10/2021 4.4 02/15/2021 4.6 10/07/2020 3.8 10/06/2020 4.0 Chloride (mmol/L) Date Value 08/12/2021 101 08/11/2021 101 08/10/2021 103 02/15/2021 108 10/07/2020 105 10/06/2020 109 CO2 (mmol/L) Date Value 08/12/2021 23 08/11/2021 26 08/10/2021 23 02/15/2021 22 10/07/2020 25 10/06/2020 23 BUN (mg/dL) Date Value 08/12/2021 22 08/11/2021 17 08/10/2021 16 02/15/2021 22 10/07/2020 19 10/06/2020 21 Creatinine (mg/dL) Date Value 08/12/2021 0.76 08/11/2021 0.80 08/10/2021 0.76 02/15/2021 0.91 10/07/2020 0.99 10/06/2020 0.78 Calcium (mg/dL) Date Value 02/15/2021 9.2 10/07/2020 8.5 10/06/2020 9.1 Calcium, Total (mg/dL) Date Value 08/12/2021 9.3 08/11/2021 9.2 08/10/2021 9.3 Magnesium (mg/dL) Date Value 08/08/2021 1.9 08/07/2021 1.6 Glucose (mg/dL) Date Value 08/12/2021 255 08/11/2021 201 08/10/2021 221 02/15/2021 167 10/07/2020 220 10/06/2020 183 Estimated Creatinine Clearance: 104.2 mL/min (based on SCr of 0.76 mg/dL). LIVER FUNCTION PANEL Protein, Total (g/dL) Date Value 08/12/2021 6.8 08/11/2021 6.6 08/10/2021 6.7 02/15/2021 6.9 07/14/2020 7.0 Albumin (g/dL) Date Value 08/12/2021 4.0 08/11/2021 4.0 08/10/2021 4.1 02/15/2021 4.3 07/14/2020 4.4 Alkaline Phosphatase (U/L) Date Value 08/12/2021 101 08/11/2021 95 08/10/2021 95 02/15/2021 85 07/14/2020 109 Bilirubin, Total (mg/dL) Date Value 08/12/2021 0.6 08/11/2021 0.8 08/10/2021 0.6 02/15/2021 0.6 07/14/2020 0.4 AST (U/L) Date Value 08/12/2021 40 08/11/2021 38 08/10/2021 20 02/15/2021 21 07/14/2020 16 ALT (U/L) Date Value 08/12/2021 45 08/11/2021 37 08/10/2021 24 02/15/2021 21 07/14/2020 18 PT INR (no units) Date Value 10/06/2020 1.0 INR (no units) Date Value 08/07/2021 1.0 08/07/2021 1.0 LIPID PANEL Cholesterol, Total (mg/dL) Date Value 02/15/2021 158 02/15/2021 155 07/14/2020 205 Triglyceride (mg/dL) Date Value 02/15/2021 147 02/15/2021 147 07/14/2020 302 HDL Cholesterol (mg/dL) Date Value 02/15/2021 42 02/15/2021 42 07/14/2020 41 LDL Cholesterol (mg/dL) Date Value 02/15/2021 87 02/15/2021 84 07/14/2020 104 CARDIAC BIOMARKERS NT Pro BNP (pg/mL) Date Value 08/07/2021 583 Troponin T Date Value Ref Range Status 08/08/2021 0.068 (H) 0.000 - 0.029 ng/mL Final OTHER BIOMARKERS TSH (uU/mL) Date Value 02/15/2021 1.250 07/14/2020 1.920 Hemoglobin A1C (%) Date Value 08/08/2021 8.6 02/15/2021 7.8 07/14/2020 10.3 Vitamin D 25 Hydroxy (ng/mL) Date Value 07/14/2020 20.2 Iron (ug/dL) Date Value 07/14/2020 68 URINALYSISNo results found for: PH, SPGR, UGLUC, UBILI, UKET, UHB, UPROT, UROBIL, NITRITES, UWBC, SSA IMMUNOSUPRESSIONNo results found for: FK506, CSA, RAPA INFECTIOUS DISEASESNo results found for: HIVSCN, CMVIGGAB, IGG ECHOCARDIOGRAM LV Ejection Fraction (%) Date Value 08/08/2021 55 08/12/2020 50 DIAGNOSTIC STUDIES (I have personally visualized and interpreted the following diagnostic imaging studies) 09/20/2020 Cardiac PET 1. PET Perfusion Study: Abnormal. 2. There is moderate (10-20%) ischemia in the territory of the LAD. 3. There is evidence of a small (<10%) scar in the territory of the LAD. 4. Left ventricle is normal in size. The left ventricle systolic function is normal. 5. There is a drop in ejection fraction post stess. 6. Right ventricle is normal in size. The right ventricle systolic function is normal. 7. This is a high risk scan. 8. Incidental Findings from limited non-diagnostic CTAC: Incidental Finding: Follow-up for lung nodule >= 0.6 cm visualized in the right lower lobe. Recommend dedicated chest CT and/or comparison to prior studies if available. Gated Stress TOF:SC:CTAC Gated Rest TOF:SC:CTAC LVEF % 52 60 08/08/2021 ECG SINUS RHYTHM WITH OCCASIONAL PREMATURE VENTRICULAR COMPLEXES INFERIOR MYOCARDIAL INFARCTION , AGE UNDETERMINED 08/08/2021 ECHO - The left ventricle is normal in size. Left ventricular systolic function is normal. EF = 55 5% (2D biplane) - The right ventricle is normal in size. Right ventricular systolic function is normal. - There are no significant valvular abnormalities. - Exam was compared with the prior CC echocardiographic exam performed on 08/12/2020 with mild interval improvement in LV fucntion and septal/apical wall motion abnormality. Otherwise, similar findings. 08/11/2021 Left and Right Heart Cath - Overall similar findings when compared to last catheterization in 09/2020. - Widely patent stents in the proximal to mid LAD. - Moderate lesions in the RCA and LCx, not hemodynamically significant by physiologic testing. (FFR 0.88 and 0.94 respectively) - No evidence of significant microvascular dysfunction. - Elevated bilateral filling pressures with borderline transpulmonary gradient. Preserved cardiac output/index. RA Mean 16.00 RV 44.00/16.00 PA 44.00/22.00 (29.00) PCWP V Wave 26.00 PCWP Mean 18.00 LV /14.00 Estimated Janiya CO = [125 x 2.24] / [(0.93-0.67) x 11.9 x 1.36 x 10] = 6.6 L/min Estimated Janiya CI = 2.9 SVR = (105-16)/6.6 x 80 = 1079 dynes PVR = (29-18)/6.6 = 1.7 ANDERSON IMPRESSION Angie Serra is a pleasant 56 year old White female who comes to [facility] for evaluation and management of Consult. The primary encounter diagnosis was Heart failure with preserved ejection fraction, unspecified HF chronicity (HCC). Diagnoses of Primary hypertension, Mixed hyperlipidemia, Obesity, Class III, BMI 40-49.9 (morbid obesity) (HCC), Coronary artery disease involving [place] coronary artery of [place] heart, unspecified whether angina present, S/P drug eluting coronary stent placement, Type 2 diabetes mellitus with hyperglycemia, with long-term current use of insulin (HCC), and Gastroesophageal reflux disease without esophagitis were also pertinent to this visit. Among other conditions mentioned above, Angie Serra suffers from Chronic HFpEF, NYHA III, Stage C; the etiology is Ischemic Cardiomyopathy. Angie Serra is Euvolemic and well perfused today; she is currently not on optimal Guideline-Directed Medical Therapy (GDMT) for Heart Failure. Angie Serra is not in need of Advanced Heart Failure Therapies at this time. HTN and volume now control. I am concerned that the RCA and LCx lesions are worse than previously thought, given worsening angina after stopping isosorbide. I wonder whether the FFR was benign due to concomitant isosorbide therapy. If no need for revascularization, will proceed with Bariatric surgery. If she needs PCI, will take DAPT for 6 months piror to surgery. Labs pending. RECOMMENDATIONS Will refer to Ted Kaur for evaluation of RCA and LCx lesions while OFF isosorbide. Continue to follow all other prescribed medical therapies and recommendations. Return to clinic in 6-8 weeks for follow up. I have discussed with the patient and family and caregivers when present, in simple terms, the likely etiologies of the patient's condition, its pathophysiology, prognosis, current status, diagnostic modalities, and both basic and advanced therapeutic options. In addition, we discussed guideline-recommended lifestyle modifications such as diet, weight management, exercise, and abstinence of tobacco, alcohol, and illicit substances. When appropriate, these were also documented in the Patient Instructions section of the After Visit Summary, which was printed and handed to the patient. The patient was also provided pertinent healthcare educational booklets available in our clinic. Orders Placed This Encounter [facility] OP FOLLOW UP APPT ORDER Order Specific Question: Schedule patient for follow up Answer: Yes Order Specific Question: Provider Answer: Johanne SNIDER [[id number]] Order Specific Question: CVM Section: Answer: Heart Failure Order Specific Question: Testing Options: Answer: No Testing Order Specific Question: Return: Answer: 3 months potassium chloride (K-TAB) 10 mEq tablet Sig: Take 10 mEq by mouth twice daily. [facility] STAFF PHYSICIAN NOTE OF PERSONAL INVOLVEMENT IN CARE I have personally performed a [id number] diagnostic evaluation on this patient, including anamnesis and physical examination, review and analysis of pertinent available medical records, and personal visualization and interpretation of pertinent available diagnostic data. The patient s condition required a significant and separately identifiable evaluation and management service, above and beyond the usual pre- and post-procedure/operative care associated with any procedure or service performed. Total time spent on this visit included time spent preparing to see the patient, obtaining history of present illness, performing a medically appropriate physical examination, counseling and educating the patient and caregivers, ordering medications and diagnostic tests, communicating with other health care providers, documenting the clinical information in the electronic health record, independently interpreting diagnostic results and communicating these to the patient and caregivers, and coordinating care, among others. The health conditions of this patient carry a high risk of complications, morbidity, and/or mortality of patient management. These health conditions warrant a high level of medical decision making. This note was partially created using voice recognition software and is inherently subject to errors including those of syntax and sound-alike substitutions which may escape proofreading. In such instances, original meaning may be extrapolated by contextual derivation. October 26, 2021; 10:38 AM. Bethany Snider MD Staff, Section of Heart Failure and Transplantation Medicine [facility] Nataly Watt Department of Cardiovascular Medicine [facility]ascular [facility] Thor[facility] [place] [address] [place] Tel: [phone] Fax: [phone] Appt: [phone] documented in this encounter [facility] 10-26-[address] - 10/26/2021 8:33 AM EDT Nutrition Intervention 10/26/2021: Modify type and amount of food consumed for meals and snacks: Please call [phone], option 5. Leave a message for the navigation team when you are finished with all clearances (nutrition, psychology, medical, surgeon) 2. Protein goal: 82 grams protein/day 3. Fluid goal: 64oz per day water. (No calories, no caffeine, no carbonation, no alcohol) 4. Exercise goal: 150-250 minutes combination cardio/strength training/week 5. Practice mindful eating habits-take small portions, eat slowly, and chew thoroughly 6. Start the full liquid diet (2) weeks prior to surgery using 3-4 protein shakes per day, continue a minimum of 64 oz. water per day during this time. No solid food. May have sugar free Popsicle and sugar free jello. 4 bottles of High Protein Slim Fast shakes per day 5 packets of No Sugar Added [place] Instant Breakfast Drink mixed with fat free or 1% milk. 5 individual cartons of Atkins Advantage shakes per day 4 bottles of Glucose Controlled Boost shakes per day. During the 2 week liquid diet before surgery include a daily Super B-Complex vitamin with Thiamine during the 2 weeks. 8. Advance your diet as tolerated after surgery; refer to page 49 in your guideline booklet. Phase 1-Clear liquid (in hospital only); Phase 2 Full liquids (protein shakes limited to 1/4c per meal, 1c fluids between meals), Phase 3 soft/pureed; high protein foods; Phase 4 high protein foods with added vegetables 9. Vitamins/minerals: Begin after starting solid foods: (2) children's chewable Multivitamin complete (morning) OR (2) adult Centrum Chewable complete multivitamin, Iron supplement 18mg (morning), Vit B12 500 mcg sublingual pill or liquid (morning), and calcium citrate w/Vit D 600 mg at lunch and 600 mg at dinner. Additional 2000 IU Vit D3 daily, B complex with 75-100 mg Thiamine. OR - Bariatric Fusion: 4 Complete Chewable Multivitamins per day (2 in the AM, 2 in the PM) [email or web address] - Cocodot: 1 Bariatric Multivitamin and Calcium Citrate (total of 9359-6044 mg/day) * take calcium citrate separately from Multivitamin with iron at least 2 hours apart and 4 hours apart from additional calcium [email or web address] - Bariatric Choice: 4 Complete Multivitamins (chewables) per day [email or web address] - Bariatric Advantage: 2 Multivitamins and 3 Calcium Citrate Chewables per day * take calcium citrate separately from Multivitamin with iron at least 2 hours apart and 4 hours apart from additional calcium [email or web address] Nutrition Monitoring & Evaluation: 1-2 lb per week weight loss Criteria: Patient update, weight check Need for Follow up: 2-weeks post-op documented in this encounter [facility] 10-26-2021 History of Present illness Narrative [facility] Nutrition Therapy: Virtual Consult Re-assessment This visit was performed virtually due to the COVID-19 epidemic as an effort to protect patients and minimize exposure. Consent from patient received to conduct visit virtually. This Team Access Model visit is a virtual encounter. It required patient-provider interaction for the medical decision making as documented below. PROGRESS: Nutrition Intervention (date of last encounter 09/25/21): Modify type and amount of food consumed for meals and snacks: 1. Continue 6080-7307 calorie partial liquid diet (refer to handout) Breakfast: protein shake (200-250 calories, 15+ grams protein) plus 1 piece of fruit Lunch: protein shake (200-250 calories, 15+ grams protein) plus 1 piece of fruit Dinner: 4-5 ounces lean protein, 1 cup starch (bread/pasta/potatoes/corn/peas), unlimited non starchy vegetables 1 snack (< 150 calories) should contain protein 4. Continue physical activity with a goal of 150 min of aerobic exercise per week. Include 2-3 days of strength exercises 2-3 times/week. 5. Drink 64 ounces per day water. Fluids should follow these guidelines: No carbonation, no caffeine, no calories, no alcohol. Separate foods and fluids by 20 minutes Goal weight pre-op is 225 lbs. Protein goal is 82 gm CHANGES IN TREATMENT: Patient met goal(s): Partially Actions to implement interventions: See assessment Diet Recall: Patient plans Breakfast: Protein shake (Atkins) Lunch: Atkins shake OR meat and cheese Dinner: Chicken/pork, mixed vegetables Snacks: Popcorn at night, peanut butter and celery Beverages: Water Alcohol: 1 glass of alcohol for social events/holidays Vitamins/Minerals: MVI, Vitamin D Exercise- Patient walking daily CLINICAL IMPRESSIONS: good ANTHROPOMETRICS Height per patient: 65 Weight per patient: 250# Most recent height and weight per EPIC Height: Last 1 Encounter Ht Readings: Date: Ht: 09/25/2021 165.1 cm (5' 5 ) Weight: Last 1 Encounter Wt Readings: Date: Wt: 09/25/2021 118.8 kg (262 lb) Body mass index is 41.6 kg/m . Resting Metabolic Rate: 1772 Malnutrition Screening Significant unintentional weight loss? No Eating less than 75% of usual intake for more than 2 weeks? No Potential Signs of Inflammation: no identifiable sources Nutritional status: RECOMMENDED MALNUTRITION DIAGNOSIS: NO MALNUTRITION IDENTIFIED Educational materials provided: None this visit Patient presents for follow up nutrition Virtual Consult in preparation for bariatric surgery. Since last nutrition visit patient has lost 12 lbs. Diet recall reveals consistent eating pattern with no skipped meals. Meals are following the healthy plate method with following the partial-liquid diet. Protein intake meeting recommendations with protein shakes being used appropraitely. Fluid intake meeting recommendations. Exercise meeting recommendations. Patient meets the National Institutes of Health guidelines for weight loss surgery and has [facility] insurance and therefore may be required to complete 6 months of Nutrition Intervention for clearance for surgery. . This is 6 of 6 required visits. (Alfredo 07/14/20, 02/20/21, 06/27/21, 08/25/21, 09/25/21, Mirza 10/26/21). After session today, patient able to verbalize protein/fluid/exercise goals, recommendations for vitamin/minerals, use of protein shakes for meal replacement and for 2 week full liquid diet phase. Also able to demonstrate post op diet advancement/portion control using food models. Anticipate post op compliance. The patient meets NIH guidelines for weight loss surgery and has been thoroughly evaluated and educated on good dietary practices. Patient is capable of following these guidelines pre-and post-surgically. From nutrition standpoint, the patient is cleared for weight loss surgery. If the patient desires, may continue to follow-up with the dietitian on a monthly basis until all surgical requirements are met. Nutrition Diagnosis: Overweight/obesity, related to, food/nutrition - related knowledge deficit, as evidenced by BMI above normative standard for age and gender. Nutrition Intervention 10/26/2021: Modify type and amount of food consumed for meals and snacks: Please call [phone], option 5. Leave a message for the navigation team when you are finished with all clearances (nutrition, psychology, medical, surgeon) 2. Protein goal: 82 grams protein/day 3. Fluid goal: 64oz per day water. (No calories, no caffeine, no carbonation, no alcohol) 4. Exercise goal: 150-250 minutes combination cardio/strength training/week 5. Practice mindful eating habits-take small portions, eat slowly, and chew thoroughly 6. Start the full liquid diet (2) weeks prior to surgery using 3-4 protein shakes per day, continue a minimum of 64 oz. water per day during this time. No solid food. May have sugar free Popsicle and sugar free jello. 4 bottles of High Protein Slim Fast shakes per day 5 packets of No Sugar Added [place] Instant Breakfast Drink mixed with fat free or 1% milk. 5 individual cartons of Atkins Advantage shakes per day 4 bottles of Glucose Controlled Boost shakes per day. During the 2 week liquid diet before surgery include a daily Super B-Complex vitamin with Thiamine during the 2 weeks. 8. Advance your diet as tolerated after surgery; refer to page 49 in your guideline booklet. Phase 1-Clear liquid (in hospital only); Phase 2 Full liquids (protein shakes limited to 1/4c per meal, 1c fluids between meals), Phase 3 soft/pureed; high protein foods; Phase 4 high protein foods with added vegetables 9. Vitamins/minerals: Begin after starting solid foods: (2) children's chewable Multivitamin complete (morning) OR (2) adult Centrum Chewable complete multivitamin, Iron supplement 18mg (morning), Vit B12 500 mcg sublingual pill or liquid (morning), and calcium citrate w/Vit D 600 mg at lunch and 600 mg at dinner. Additional 2000 IU Vit D3 daily, B complex with 75-100 mg Thiamine. OR - Bariatric Fusion: 4 Complete Chewable Multivitamins per day (2 in the AM, 2 in the PM) [email or web address] [employer]: 1 Bariatric Multivitamin and Calcium Citrate (total of 3860-5027 mg/day) * take calcium citrate separately from Multivitamin with iron at least 2 hours apart and 4 hours apart from additional calcium www.[email or web address] - Bariatric Choice: 4 Complete Multivitamins (chewables) per day [email or web address] - Bariatric Advantage: 2 Multivitamins and 3 Calcium Citrate Chewables per day * take calcium citrate separately from Multivitamin with iron at least 2 hours apart and 4 hours apart from additional calcium [email or web address] Nutrition Monitoring & Evaluation: 1-2 lb per week weight loss Criteria: Patient update, weight check Need for Follow up: 2-weeks post-op MNT Billing Type: Re-assess/15 min 1 unit Signed by: Delmi Blue RDN, SVETA, MELBA documented in this encounter [facility] 10-24-2021 History of Present illness Narrative Office notes for insurance requirements for PAP therapy use faxed to DME; [facility] # [phone]; FAX# [phone]; [phone]. Confirmed and filed. Chiqui Gregg Ma Images from the original note were not included. [facility] Virtual Visit Follow up/ Established patient visit Date of last visit : 04/10/2021 IMPRESSION/PLAN: G47.33 RAYMUNDO (obstructive sleep apnea) (primary encounter diagnosis) Angie Serra is a 55 year old female with PMH of Diabetes mellitus type II, GERD, Hyperlipidemia, Hypertension, & obesity. She endorses snoring and has plans for surgical intervention for weight loss. Reviewed sleep study results and discussed with patient: the physiology of OSAS, medical conditions associated with OSAS (DM, HTN, CAD, Depression, Stroke, Headache...) and treatment of CPAP. - Will start Auto CPAP 5-15 cmH2O - I will have a prescription sent to a [employer] company - YANELI Serrato - who will be calling you in the next 2-4 weeks or so. Please call them directly or us if you do not hear from them in this time frame. - You should be eligible for new supplies approximately every 3-6 months, depending on your insurance coverage. - If your mask doesn't fit well, call the [employer] company before 30 days are up to get a new mask without an additional charge. - Insurance requires regular usage and periodic office follow ups for PAP therapy, to continue to cover supplies. INSURANCE REQUIREMENTS: - Your insurance requires a [id number] follow up visit within a 31-90 day period after starting CPAP. - Your insurance requires compliance with CPAP, which is at least 4 hours per night for 70% of the time. This must be done over a 30 day period and must occur within the initial 31-90 day period after starting CPAP. - Your insurance also requires at least yearly follow ups to continue to pay for CPAP supplies. Follow up in 3 month(s). Soo Vyas APRN.[employer] Interval history : 56 yo female here for follow up for RAYMUNDO on CPAP with nightly use and benefits noted. SLEEP APNEA Sleep apnea type : RAYMUNDO, Most Recent Apnea-Hypopnea Index (AHI): 15.9 Treatment : PAP therapy DME: YANELI oakley PAP History: Current PAP settin-15 cm H2O. Difficulties with AutoPAP: None Reviewed objective PAP compliance data: 09/18/2021 to 10/17/2021 Compliance download: 100% >=4 hours Average use: 7 hours 27 minutes 90/95th percentile pressure: 12.8 Leaks 12.4, residual AHI 1.6 Mask issues: NA Uses chin strap: No Uses ramp function: Yes Uses humidity: Yes There is a perceived benefit by the patient Denies drowsy driving or safety concerns SLEEP FUNCTIONAL OUTCOME MEASURES Reviewed PMH, PSH, SH: Reviewed SLEEP RELATED ROS REVIEW OF SYSTEMS SLEEP RELATED ROS GENERAL: See HPI RESPIRATORY: negative dyspnea CARDIOVASCULAR: negative palpitations and chest pain SKIN: negative mask irritation PSYCH: negative depression and suicidal thoughts ENDOCRINE: negative thyroid problems NEURO: negative cognitive changes and memory problems All other systems reviewed and are negative. ALLERGIES No Known Allergies CURRENT MEDICATIONS: FREESTYLE DESIREE 14 DAY SENSOR kit apply 1 SENSOR to back OF UPPER ARM REMOVE AND REPLACE every 14 d... (REFER TO PRESCRIPTION NOTES). empagliflozin (JARDIANCE) 25 mg tablet Take 1 tablet by mouth daily with breakfast. torsemide (DEMADEX) 20 mg tablet Take 1 tablet by mouth once daily. sacubitril-valsartan (ENTRESTO) 24-26 mg tablet Take 1 tablet by mouth twice daily. DULoxetine (CYMBALTA) 60 mg capsule Take 60 mg by mouth every Saturday,Saturday,Saturday. carvedilol (COREG) 12.5 mg tablet Take 2 tablets by mouth twice daily with meals. LANTUS SOLOSTAR U-100 INSULIN 100 unit/mL (3 mL) Inject 30 Units subcutaneously as directed. CPAP Please Expedite for upcoming surgery. Settings 5 - 15 cm H2O, suitable mask per pt preference, chin strap, head gear, humidity, tubing, lifetime supplies. G47.33 RAYMUNDO ezetimibe (ZETIA) 10 mg tablet Take 1 tablet by mouth once daily. fremanezumab-vfrm (AJOVY SYRINGE SUBCUTANEOUS) Inject 1 Dose subcutaneously once every month. HUMALOG KWIKPEN INSULIN 100 unit/mL Inject 4 Units subcutaneously as directed. atorvastatin (LIPITOR) 80 mg tablet Take 1 tablet by mouth once daily. clopidogrel (PLAVIX) 75 mg tablet Take 1 tablet by mouth once daily. pantoprazole DR (PROTONIX) 40 mg tablet Take 1 tablet by mouth once daily. aspirin (ASPIR-81 ORAL) once daily. WELCHOL 625 mg tablet 1,875 mg once daily. SUMAtriptan (IMITREX) 100 mg tablet take 1 tablet by mouth AT ONSET OF HEADACHE may repeat in 2 hours... (REFER TO PRESCRIPTION NOTES). PHYSICAL EXAMINATION: General appearance: awake alert in NAD Mental status: normal Constitutional: Normal IMPRESSION: Raymundo (obstructive sleep apnea) (primary encounter diagnosis) Vitamin d deficiency 56 yo female here for follow up for RAYMUNDO on CPAP with nightly use and benefits noted. PLAN: - Continue Auto CPAP at 5-15 cmH2O. - Remember to clean your mask and equipment regularly, as directed. - You should be eligible for new supplies approximately every 3-6 months, depending on your insurance coverage. Contact your Durable Medical Equipment (DME) company for new supplies as needed. - Follow up in 12 months Soo Vyas APRN.ADELIA I spent a total of 17 minutes on the date of the service which included preparing to see the patient, [id number] patient care, completing clinical documentation, obtaining and/or reviewing separately obtained history, counseling and educating the patient/family/caregiver and communicating results to the patient/family/caregiver. documented in this encounter [facility] 10-05-2021 History of Present illness Narrative Images from the original note were not included. [facility] [place] Department of Cardiovascular Medicine VIRTUAL VIDEO VISIT ESTABLISHED OUTPATIENT VISIT SERVICE DATE: 10/05/2021 Patient: Angie Serra SERVICE TIME: 10:40 AM : 1965 This is a virtual video visit. It required patient-provider interaction for the medical decision making as documented below. Angie Serra has consented to this video encounter. Angie Serra is a 56 year old female seen for followup. CHIEF COMPLAINT Followup HISTORY OF PRESENT ILLNESS Angie Serra is a 56 year old female presenting for followup. Today: denies symptoms of chest pain, dyspnea, PND, orthopnea, palpitations. Active (walks 2 miles on flat ground). Still awaiting followup with our sleep study team regarding her positive home sleep study result. Has a followup cholesterol check pending later today. Coronary artery disease ? EKG 07/14/20 read as inferior NH and possible anterolateral infarction. Echo showing anteroseptal akinesis and apical thinning with EF 50% ? No history of angina or angina equivalent. Has been more active here recently, walking 2-3 miles on flat ground without limitation or symptom onset. ? Tobacco use: Quit 37 years ago < 1 ppd for less than 2 years ? Family History: Father: CAD NH CABG DM, HTN, HLD, Mother: DM HTN, Brother: CAD PCI stents x2 (Age 50) PPM bradycardia ? PET stress test that showed 10-20% ischemia in the LAD territory. Her most recent echo shows mild reduction in EF ? 10/06/20: Patient underwent cath s/p PCI of mLAD Diagnostic angiography today showed subtotal occlusion of the proximal LAD with MEGHAN 1 flow; the apical LAD fills via R-L collaterals. There is a discrete 50-60% focal lesion in the mid RCA. LMT: _ The LMT is normal. LAD: The proximal LAD is narrowed 99 % - Sub-total occlusion. LCX: _ The Circumflex has mild diffuse disease. RAMUS: _ The Ramus has mild diffuse disease. RCA: The RCA has mild diffuse disease. The mid RCA is narrowed 40 % - focal disease. There are right to left collaterals that fill the LAD. - IVUS-guided PCI to the ostial into proximal LAD with a 3.0 x 24 mm Synergy XD EES (post-dilated with a 3.5 mm NC at the proximal stent edge) and to the proximal into mid LAD with a 2.5 x 28 mm Synergy XD EES (post-dilated with a 3.0 mm NC) ? LDL 07/10: 107 --> 87 mg/dL on 02/15/21 (on Welchol and Lipitor 80mg) RAYMUNDO; diagnosed in 2020; pending followup with sleep medicine. IDDM, A1c 10%. Cardiac Meds: ? Plavix 75mg ? Lopressor 25mg BID ? ? ASA 81mg ? Lipitor 80mg ? Welchol ? Imdur ? Jardiance ? Zetia ? Plavix IMPRESSION: Ms. Serra is a 55 year old female with PMHx of obesity, T2DM, HTN, HLD, GERD, Migraines currently undergoing evaluation for bariatric surgery. Referred for concerns of abnormal EKG. Denies any angina. Able to walk 2 miles on flat ground without symptoms. Echo which shows anteroseptal akinesis and apical thinning with a mild reduction in ejection fraction to 50%. +PET with staged PCI to mLAD for 50-60% focal disease to optimize patient fully for bariatric surgery. Tolerating DAPT and completing PLAN AND RECOMMENDATIONS: Continue current regimen Will start Zetia. Repeat FLP showing LDL of 87 mg/dL. Given stability of symptoms and activity status, feel patient is at acceptable risk to proceed with her bariatric surgery once her 6 months of DAPT are completed come late March 2021; no further cardiac testing indicated. RCRI places patient at 10% risk of 30-day MACE. Continue effort to followup with our sleep medicine team: sleep study and CPAP titration. Return in 6 months or sooner, order placed. PAST MEDICAL HISTORY Diagnosis Date Congestive heart failure (HCC) Coronary artery disease Diabetes mellitus (HCC) 20 years Essential hypertension GERD (gastroesophageal reflux disease) Mixed hyperlipidemia Obstructive sleep apnea PAST SURGICAL HISTORY Procedure Laterality Date PAST SURGICAL HISTORY OF hip surgery x2 PERCUTANEOUS CORONARY INTERVENTION REMOVAL GALLBLADDER 1999 TOTAL ABD HYSTERECTOMY+BLAD REPR 1998 FAMILY HISTORY Problem Relation Age of Onset Diabetes Mother Hypertension Mother Obesity Mother Hyperlipidemia Mother Stroke Father Hypertension Father Diabetes Father Obesity Father Heart Attack Father Hyperlipidemia Father Heart Failure Father Cancer Father other ([id number]) Father Diabetes Sister Obesity Sister Hyperlipidemia Sister Hypertension Sister Heart Brother Diabetes Brother Hypertension Brother Obesity Brother Hyperlipidemia Brother other (Pci) Brother other (Pacemaker) Brother No Known Problems Brother Coronary Artery Disease Maternal Grandfather Diabetes Paternal Grandmother Hypertension Paternal Grandmother Social History Tobacco Use Smoking status: Former Smoker Packs/day: 0.50 Years: 2.00 Pack years: 1.00 Types: Cigarettes Start date: 07/14/1969 Quit date: 11/1983 Years since quittin.9 Smokeless tobacco: Never Used Vaping Use Vaping Use: Never used Substance Use Topics Alcohol use: Yes Comment: occasionally Drug use: Never ALLERGIES No Known Allergies CURRENT MEDICATIONS FREESTYLE DESIREE 14 DAY SENSOR kit apply 1 SENSOR to back OF UPPER ARM REMOVE AND REPLACE every 14 d... (REFER TO PRESCRIPTION NOTES). empagliflozin (JARDIANCE) 25 mg tablet Take 1 tablet by mouth daily with breakfast. torsemide (DEMADEX) 20 mg tablet Take 1 tablet by mouth once daily. sacubitril-valsartan (ENTRESTO) 24-26 mg tablet Take 1 tablet by mouth twice daily. DULoxetine (CYMBALTA) 60 mg capsule Take 60 mg by mouth every Saturday,Saturday,Saturday. carvedilol (COREG) 12.5 mg tablet Take 2 tablets by mouth twice daily with meals. LANTUS SOLOSTAR U-100 INSULIN 100 unit/mL (3 mL) Inject 30 Units subcutaneously as directed. CPAP Please Expedite for upcoming surgery. Settings 5 - 15 cm H2O, suitable mask per pt preference, chin strap, head gear, humidity, tubing, lifetime supplies. G47.33 RAYMUNDO ezetimibe (ZETIA) 10 mg tablet Take 1 tablet by mouth once daily. fremanezumab-vfrm (AJOVY SYRINGE SUBCUTANEOUS) Inject 1 Dose subcutaneously once every month. HUMALOG KWIKPEN INSULIN 100 unit/mL Inject 4 Units subcutaneously as directed. atorvastatin (LIPITOR) 80 mg tablet Take 1 tablet by mouth once daily. clopidogrel (PLAVIX) 75 mg tablet Take 1 tablet by mouth once daily. cholecalciferol, Vitamin D3, (VITAMIN D3) 1,250 mcg (50,000 unit) cap capsule Take 1 capsule by mouth one time a week. pantoprazole DR (PROTONIX) 40 mg tablet Take 1 tablet by mouth once daily. aspirin (ASPIR-81 ORAL) once daily. WELCHOL 625 mg tablet 1,875 mg once daily. SUMAtriptan (IMITREX) 100 mg tablet take 1 tablet by mouth AT ONSET OF HEADACHE may repeat in 2 hours... (REFER TO PRESCRIPTION NOTES). Coronary Angiogram 10/06/20 Coronary Anatomy: Right Dominant LMT: _ The LMT is normal. LAD: The proximal LAD is narrowed 99 % - Sub-total occlusion. LCX: _ The Circumflex has mild diffuse disease. RAMUS: _ The Ramus has mild diffuse disease. RCA: The RCA has mild diffuse disease. The mid RCA is narrowed 40 % - focal disease. Additional Comment: There are right to left collaterals that fill the LAD. Impression: There is a subtotal occlusion of the ostial/prox LAD with right to left collaterals Recommended Treatment: Medical Therapy and PCI. Plan: Proceed with PCI of LAD Diagnostic angiography today showed subtotal occlusion of the proximal LAD with MEGHAN 1 flow; the apical LAD fills via R-L collaterals. There is a discrete 50-60% focal lesion in the mid RCA. Procedures Performed: - IVUS-guided PCI to the ostial into proximal LAD with a 3.0 x 24 mm Synergy XD EES (post-dilated with a 3.5 mm NC at the proximal stent edge) and to the proximal into mid LAD with a 2.5 x 28 mm Synergy XD EES (post-dilated with a 3.0 mm NC) PET Nuclear stress test 09/20/20 CONCLUSIONS: 1. PET Perfusion Study: Abnormal. 2. There is moderate (10-20%) ischemia in the territory of the LAD. 3. There is evidence of a small (<10%) scar in the territory of the LAD. 4. Left ventricle is normal in size. The left ventricle systolic function is normal. 5. There is a drop in ejection fraction post stess. 6. Right ventricle is normal in size. The right ventricle systolic function is normal. 7. This is a high risk scan. 8. Incidental Findings from limited non-diagnostic CTAC: - Incidental Finding: Follow-up for lung nodule >= 0.6 cm visualized in the right lower lobe. Recommend dedicated chest CT and/or comparison to prior studies if available. Electrocardiogram 08/12/2020 Electrocardiogram 07/14/2020: Labs: Hemoglobin A1C 10.3 07/14/2020 Cholesterol, Total 205 07/14/2020 HDL Cholesterol 41 07/14/2020 LDL Cholesterol 104 07/14/2020 Triglyceride 302 07/14/2020 TSH 1.920 07/14/2020 Last 14 BP Last 14 Encounter BP Readings: Date: BP: 08/12/2020 143/83 07/14/2020 155/71 06/24/2020 132/56 06/10/2020 101/44 Echocardiogram CONCLUSIONS: - Technically difficult exam due to body habitus. - Exam indication: Abnormal ECG - The left ventricle is normal in size. Left ventricular systolic function is mildly decreased. EF = 50 5% (2D biplane) Definity contrast used for endocardial border detection. Left ventricular diastolic function was not evaluated due to E/A fusion. Thinned and akinetic septal wall segments as described above. - The right ventricle is normal in size. Right ventricular systolic function is normal. - There are no significant valvular abnormalities. - The patient has not had a prior CC echocardiographic exam for comparison. I personally spent 30 minutes in total time involved in the management and care of this patient. Reed Leon MD October 05, 2021 10:40 AM documented in this encounter [facility] 09-25-2021 History of Present illness Narrative [facility] Nutrition Therapy: Virtual Consult Re-assessment This visit was performed virtually due to the COVID-19 epidemic as an effort to protect patients and minimize exposure. Consent from patient received to conduct visit virtually. This Team Access Model visit is a virtual encounter. It required patient-provider interaction for the medical decision making as documented below. PROGRESS: Nutrition Intervention (date of last encounter 08/25/2021): 1. Continue 8375-8119 calorie partial liquid diet (refer to handout) Breakfast: protein shake (200-250 calories, 15+ grams protein) plus 1 piece of fruit Lunch: protein shake (200-250 calories, 15+ grams protein) plus 1 piece of fruit Dinner: 4-5 ounces lean protein, 1 cup starch (bread/pasta/potatoes/corn/peas), unlimited non starchy vegetables 1 snack (< 150 calories) should contain protein 4. Continue physical activity with a goal of 150 min of aerobic exercise per week. Include 2-3 days of strength exercises 2-3 times/week. 5. Drink 64 ounces per day water. Fluids should follow these guidelines: No carbonation, no caffeine, no calories, no alcohol. Separate foods and fluids by 20 minutes Goal weight pre-op is 225 lbs. Protein goal is 82 gm CHANGES IN TREATMENT: Patient met goal(s): Yes Actions to implement interventions: see assessment CLINICAL IMPRESSIONS: good ANTHROPOMETRICS Height per patient: 65 Weight per patient: 262# Most recent height and weight per EPIC Height: Last 1 Encounter Ht Readings: Date: Ht: 09/14/2021 165.1 cm (5' 5 ) Weight: Last 1 Encounter Wt Readings: Date: Wt: 09/14/2021 121.7 kg (268 lb 4.8 oz) Body mass index is 43.6 kg/m . Resting Metabolic Rate: 1801 Malnutrition Screening Significant unintentional weight loss? No Eating less than 75% of usual intake for more than 2 weeks? No Potential Signs of Inflammation: no identifiable sources Nutritional status: RECOMMENDED MALNUTRITION DIAGNOSIS: NO MALNUTRITION IDENTIFIED Educational materials provided: None this visit Patient presents for follow up nutrition Virtual Consult. Patient with intentional weight loss 6# since last visit. She reports following partial liquid diet and is using Atkins (alone) and healthy plate with lean protein prepared in healthy manner. She reports decreasing portion sizes and glucose this AM in the 120's. Fluids include water with flavored enhancers and is consuming 1 gallon daily. Exercise is routine and includes 1/2 to 3/4 mile averaging 5 times per week. Patient meets the National Institutes of Health guidelines for weight loss surgery and has [facility] insurance and therefore may be required to complete 6 months of Nutrition Intervention for clearance for surgery. . This is 5 of 6 required visits. (Alfredo 07/14/20, 02/20/21, 06/27/21, 08/25/21, 09/25/21) Nutrition Diagnosis: Overweight/obesity, related to, decreased energy needs, as evidenced by BMI above normative standard for age and gender. Nutrition Intervention 09/22/2021: Modify type and amount of food consumed for meals and snacks: 1. Continue 1438-1889 calorie partial liquid diet (refer to handout) Breakfast: protein shake (200-250 calories, 15+ grams protein) plus 1 piece of fruit Lunch: protein shake (200-250 calories, 15+ grams protein) plus 1 piece of fruit Dinner: 4-5 ounces lean protein, 1 cup starch (bread/pasta/potatoes/corn/peas), unlimited non starchy vegetables 1 snack (< 150 calories) should contain protein 4. Continue physical activity with a goal of 150 min of aerobic exercise per week. Include 2-3 days of strength exercises 2-3 times/week. 5. Drink 64 ounces per day water. Fluids should follow these guidelines: No carbonation, no caffeine, no calories, no alcohol. Separate foods and fluids by 20 minutes Goal weight pre-op is 225 lbs. Protein goal is 82 gm Nutrition Monitoring & Evaluation: 1-2# weight loss per week Criteria: weight check Need for Follow up: 1 month MNT Billing Type: Re-assess/15 min 1 unit Signed by: Danuta Fuentes MS,RD,CSOWM,LD documented in this encounter [facility] 09-20-2021 Miscellaneous Notes [id number] HOLLY PA for entresto 24-26 mg tablet has been initiated thru Cover My meds. Await determination. Genoveva Moseley RN September 20, 2021 8:20 AM Approvedtoday Request Reference Number: [id number]. ENTRESTO TAB 24-26MG is approved through 09/20/2022. Your patient may now fill this prescription and it will be covered. Genoveva Moseley RN September 20, 2021 8:27 AM documented in this encounter [facility] 09-14-2021 Instructions Johanne Snider MD - 09/14/2021 10:23 AM EDT Will start Entresto 50 mg twice daily Will increase Empagliflozin to 25 mg daily Will stop Isosorbide Will stop Furosemide Will start Torsemide 20 mg daily Continue to follow all other prescribed medical therapies and recommendations. Return to clinic in 4 weeks for follow up with fasting labs. documented in this encounter [facility] 09-14-2021 History of Present illness Narrative Images from the original note were not included. [facility] Nataly Watt Department of Cardiovascular Medicine [facility] Section of Heart Failure and Transplantation Medicine PATIENT Angie Serra [address] [facility] [address] [facility] PRIMARY CARE PROVIDER Patti Valdez MD [address] [place] [address] REFERRING PROVIDER Michael Maciel [address] [facility] [address] CHIEF COMPLAINT Consult HISTORY OF PRESENT ILLNESS Angie Serra is a pleasant 56 year old White female who comes to [facility] for evaluation and management of Consult. The patient has been referred by Michael Maciel MD; a copy of this note will be provided by way of shared medical record and/or via regular mail. The date of his first clinic visit with me is September 14, 2021. In summary, Angie Serra is a 56 y/o female from [place], [place] following up after hospitalization. Pt has history of HFpEF, CAD s/p PCI in 10/06/20of mLAD, HTN, HLD, DM2, RAYMUNDO with CPAP, GERD; she was referred to us for evaluation and management of HFpEF. TE on admission 08/08 showing EF 55%, G1DD, septal/apical WMA, overall unchanged from previous on 07/2020. She underwent RHC/LHC on 08/11 showing stable moderate CAD, patent LAD stent, no evidence of significant microvascular dysfunction, elevated bilateral filling pressures with preserved cardiac output/index. She was started on diuretics and an Jardiance, which she recently ran out. Her main complain is MCCAIN. HTN today. REVIEW OF SYSTEMS CONSTITUTIONAL: No unintentional weight loss, malaise, or frequent fevers. No chronic fatigue. EYES: No acute vision symptoms. EARS, NOSE, MOUTH, THROAT: No acute auditive, nasal, oral, or pharyngeal symptoms. CARDIOVASCULAR: No angina. Mild dyspnea on exertion. No orthopnea. No lower extremity edema. No syncope. No palpitations. RESPIRATORY: No cough, hemoptysis, or wheezing. No dyspnea at rest. GASTROINTESTINAL: No vomiting or diarrhea. No abdominal pain. No melena or hematemesis. GENITOURINARY: No acute urinary frequency, or incontinence. No renal colic symptoms. MUSCULOSKELETAL: No acute joint pain or swelling. No acute severe back or muscle pain. INTEGUMENTARY: No new skin lesions, rash, or itching. NEUROLOGICAL: No major or recurrent headaches, paralysis, seizures, or tremors. PSYCHIATRIC: No major mood disorder, or recent major psychosocial stressor. ENDOCRINE: No cold or heat intolerance, polyuria, polydipsia, or goiter. HEMATOLOGIC/LYMPHATIC: No major bleeding episode. No swollen nodes. ALLERGIC/IMMUNOLOGIC: No recent major allergic reaction. ACTIVE MEDICAL PROBLEMS ACTIVE PROBLEM LIST Diabetes ([facility]) Primary Hypertension Migraine Obesity, Class III, BMI >= 40 Morbid Obesity ([facility]) Mixed Hyperlipidemia Gastroesophageal Reflux Disease Without Esophagitis Diabetes Mellitus Type 2 in Obese ([facility]) Coronary Artery Disease Involving [place] Coronary Artery of [place] Heart S/P Drug Eluting Coronary Stent Placement Raymundo (Obstructive Sleep Apnea) Acute On Chronic Heart Failure With Preserved Ejection Fraction ([facility]) CURRENT MEDICATIONS Pencil You InE 14 DAY SENSOR kit apply 1 SENSOR to back OF UPPER ARM REMOVE AND REPLACE every 14 d... (REFER TO PRESCRIPTION NOTES). DULoxetine (CYMBALTA) 60 mg capsule Take 60 mg by mouth every Saturday,Saturday,Saturday. carvedilol (COREG) 12.5 mg tablet Take 2 tablets by mouth twice daily with meals. LANTUS SOLOSTAR U-100 INSULIN 100 unit/mL (3 mL) Inject 30 Units subcutaneously as directed. CPAP Please Expedite for upcoming surgery. Settings 5 - 15 cm H2O, suitable mask per pt preference, chin strap, head gear, humidity, tubing, lifetime supplies. G47.33 RAYMUNDO ezetimibe (ZETIA) 10 mg tablet Take 1 tablet by mouth once daily. fremanezumab-vfrm (AJOVY SYRINGE SUBCUTANEOUS) Inject 1 Dose subcutaneously once every month. HUMALOG KWIKPEN INSULIN 100 unit/mL Inject 4 Units subcutaneously as directed. atorvastatin (LIPITOR) 80 mg tablet Take 1 tablet by mouth once daily. clopidogrel (PLAVIX) 75 mg tablet Take 1 tablet by mouth once daily. cholecalciferol, Vitamin D3, (VITAMIN D3) 1,250 mcg (50,000 unit) cap capsule Take 1 capsule by mouth one time a week. pantoprazole DR (PROTONIX) 40 mg tablet Take 1 tablet by mouth once daily. aspirin (ASPIR-81 ORAL) once daily. WELCHOL 625 mg tablet 1,875 mg once daily. SUMAtriptan (IMITREX) 100 mg tablet take 1 tablet by mouth AT ONSET OF HEADACHE may repeat in 2 hours... (REFER TO PRESCRIPTION NOTES). empagliflozin (JARDIANCE) 25 mg tablet Take 1 tablet by mouth daily with breakfast. torsemide (DEMADEX) 20 mg tablet Take 1 tablet by mouth once daily. sacubitril-valsartan (ENTRESTO) 24-26 mg tablet Take 1 tablet by mouth twice daily. PAST MEDICAL HISTORY PAST MEDICAL HISTORY Diagnosis Date Congestive heart failure (HCC) Coronary artery disease Diabetes mellitus (HCC) 20 years Essential hypertension GERD (gastroesophageal reflux disease) Mixed hyperlipidemia Obstructive sleep apnea PAST SURGICAL HISTORY PAST SURGICAL HISTORY Procedure Laterality Date PAST SURGICAL HISTORY OF hip surgery x2 PERCUTANEOUS CORONARY INTERVENTION REMOVAL GALLBLADDER 1999 TOTAL ABD HYSTERECTOMY+BLAD REPR 1998 SOCIAL HISTORY Social History Tobacco Use Smoking status: Former Smoker Packs/day: 0.50 Years: 2.00 Pack years: 1.00 Types: Cigarettes Start date: 07/14/1969 Quit date: 11/1983 Years since quittin.8 Smokeless tobacco: Never Used Vaping Use Vaping Use: Never used Substance Use Topics Alcohol use: Yes Comment: occasionally Drug use: Never FAMILY HISTORY FAMILY HISTORY Problem Relation Age of Onset Diabetes Mother Hypertension Mother Obesity Mother Hyperlipidemia Mother Stroke Father Hypertension Father Diabetes Father Obesity Father Heart Attack Father Hyperlipidemia Father Heart Failure Father Cancer Father other ([id number]) Father Diabetes Sister Obesity Sister Hyperlipidemia Sister Hypertension Sister Heart Brother Diabetes Brother Hypertension Brother Obesity Brother Hyperlipidemia Brother other (Pci) Brother other (Pacemaker) Brother No Known Problems Brother Coronary Artery Disease Maternal Grandfather Diabetes Paternal Grandmother Hypertension Paternal Grandmother ALLERGIES ALLERGIES No Known Allergies PATIENT ENTERED DATA PROMIS Global Health - (T-Scores - the mean of general population = 50. Five points is a clinically meaningful difference.) 06/24/2020 09/07/2021 Physical T-Score 54.1 47.7 Mental T-Score 53.3 50.8 PHQ-9 06/24/2020 09/07/2021 Score 1 4 KCCQ-12 Scores 09/07/2021 Physical Limitation Score 87.5 (Class I Heart Failure ) Symptom Frequency Score 79.17 (Class II Heart Failure ) Quality of Life Score 50 (Class III Heart Failure) Social Limitation Score 75 (Class II Heart Failure) Overall Summary Score 72.92 (Class II Heart Failure ) PHYSICAL EXAMINATION BP 155/69 Pulse 78 Ht 165.1 cm (5' 5 ) Wt 121.7 kg (268 lb 4.8 oz) SpO2 97% BMI 44.65 kg/m CONSTITUTIONAL: Well appearing, in no acute distress. EYES: Pupils equally round and reactive to light, extraocular movements are grossly intact. EARS, NOSE, MOUTH, THROAT: Mucosas appear moist and intact. No obvious lesions. CARDIOVASCULAR: Regular and normal rate. Normal S1 and S2; no S3 or S4. No murmurs. No pericardial rub. No carotid bruit. Good capillary refill, no acrocyanosis. Peripheral pulses are normal throughout. JVP is elevated. Mild lower extremity edema. RESPIRATORY: Lungs clear to auscultation; no significant wheezing, rhonchi, or rales. GASTROINTESTINAL: Abdomen is soft, non-tender, and non-distended. Bowel sounds are normal. GENITOURINARY: No costovertebral angle tenderness upon palpation; genital exam deferred. MUSCULOSKELETAL: No gross joint swelling, major deformity, or tenderness. No digital clubbing. Range of motion is grossly normal throughout. INTEGUMENTARY: Color, texture, and turgor are normal; no rashes or lesions. No jaundice. NEUROLOGICAL: Gait is grossly normal. Motor and sensory functions are grossly intact. PSYCHIATRIC: Alert and oriented to person, place, and time; lucid. Normal affect and insight. No significant mental retardation. Memory is grossly intact. ENDOCRINE: Thyroid and parotid glands are grossly normal. HEMATOLOGIC/LYMPHATIC: No major adenopathy, petechia, purpura, or ecchymoses. PERTINENT DIAGNOSTIC DATA COMPLETE BLOOD COUNT WBC (k/uL) Date Value 08/12/2021 8.02 08/11/2021 7.17 08/10/2021 7.55 02/15/2021 7.71 10/06/2020 7.28 07/14/2020 9.30 RBC (m/uL) Date Value 08/12/2021 4.14 08/11/2021 4.12 08/10/2021 4.27 02/15/2021 4.57 10/06/2020 4.90 07/14/2020 4.78 Hemoglobin (g/dL) Date Value 08/12/2021 12.1 08/11/2021 12.1 08/10/2021 12.7 02/15/2021 13.7 10/06/2020 14.6 07/14/2020 14.7 Hematocrit (%) Date Value 08/12/2021 38.1 08/11/2021 37.3 08/10/2021 39.4 02/15/2021 44.1 10/06/2020 46.1 07/14/2020 46.0 MCV (fL) Date Value 08/12/2021 92.0 08/11/2021 90.5 08/10/2021 92.3 02/15/2021 96.5 10/06/2020 94.1 07/14/2020 96.2 Platelet Count (k/uL) Date Value 08/12/2021 273 08/11/2021 264 08/10/2021 276 02/15/2021 329 10/06/2020 367 07/14/2020 396 BASIC METABOLIC PANEL Sodium (mmol/L) Date Value 08/12/2021 135 08/11/2021 138 08/10/2021 139 02/15/2021 142 10/07/2020 140 10/06/2020 141 Potassium (mmol/L) Date Value 08/12/2021 4.8 08/11/2021 4.3 08/10/2021 4.4 02/15/2021 4.6 10/07/2020 3.8 10/06/2020 4.0 Chloride (mmol/L) Date Value 08/12/2021 101 08/11/2021 101 08/10/2021 103 02/15/2021 108 10/07/2020 105 10/06/2020 109 CO2 (mmol/L) Date Value 08/12/2021 23 08/11/2021 26 08/10/2021 23 02/15/2021 22 10/07/2020 25 10/06/2020 23 BUN (mg/dL) Date Value 08/12/2021 22 08/11/2021 17 08/10/2021 16 02/15/2021 22 10/07/2020 19 10/06/2020 21 Creatinine (mg/dL) Date Value 08/12/2021 0.76 08/11/2021 0.80 08/10/2021 0.76 02/15/2021 0.91 10/07/2020 0.99 10/06/2020 0.78 Calcium (mg/dL) Date Value 02/15/2021 9.2 10/07/2020 8.5 10/06/2020 9.1 Calcium, Total (mg/dL) Date Value 08/12/2021 9.3 08/11/2021 9.2 08/10/2021 9.3 Magnesium (mg/dL) Date Value 08/08/2021 1.9 08/07/2021 1.6 Glucose (mg/dL) Date Value 08/12/2021 255 08/11/2021 201 08/10/2021 221 02/15/2021 167 10/07/2020 220 10/06/2020 183 Estimated Creatinine Clearance: 105.6 mL/min (based on SCr of 0.76 mg/dL). LIVER FUNCTION PANEL Protein, Total (g/dL) Date Value 08/12/2021 6.8 08/11/2021 6.6 08/10/2021 6.7 02/15/2021 6.9 07/14/2020 7.0 Albumin (g/dL) Date Value 08/12/2021 4.0 08/11/2021 4.0 08/10/2021 4.1 02/15/2021 4.3 07/14/2020 4.4 Alkaline Phosphatase (U/L) Date Value 08/12/2021 101 08/11/2021 95 08/10/2021 95 02/15/2021 85 07/14/2020 109 Bilirubin, Total (mg/dL) Date Value 08/12/2021 0.6 08/11/2021 0.8 08/10/2021 0.6 02/15/2021 0.6 07/14/2020 0.4 AST (U/L) Date Value 08/12/2021 40 08/11/2021 38 08/10/2021 20 02/15/2021 21 07/14/2020 16 ALT (U/L) Date Value 08/12/2021 45 08/11/2021 37 08/10/2021 24 02/15/2021 21 07/14/2020 18 PT INR (no units) Date Value 10/06/2020 1.0 INR (no units) Date Value 08/07/2021 1.0 08/07/2021 1.0 LIPID PANEL Cholesterol, Total (mg/dL) Date Value 02/15/2021 158 02/15/2021 155 07/14/2020 205 Triglyceride (mg/dL) Date Value 02/15/2021 147 02/15/2021 147 07/14/2020 302 HDL Cholesterol (mg/dL) Date Value 02/15/2021 42 02/15/2021 42 07/14/2020 41 LDL Cholesterol (mg/dL) Date Value 02/15/2021 87 02/15/2021 84 07/14/2020 104 CARDIAC BIOMARKERS NT Pro BNP (pg/mL) Date Value 08/07/2021 583 Troponin T Date Value Ref Range Status 08/08/2021 0.068 (H) 0.000 - 0.029 ng/mL Final OTHER BIOMARKERS TSH (uU/mL) Date Value 02/15/2021 1.250 07/14/2020 1.920 Hemoglobin A1C (%) Date Value 08/08/2021 8.6 02/15/2021 7.8 07/14/2020 10.3 Vitamin D 25 Hydroxy (ng/mL) Date Value 07/14/2020 20.2 Iron (ug/dL) Date Value 07/14/2020 68 URINALYSISNo results found for: PH, SPGR, UGLUC, UBILI, UKET, UHB, UPROT, UROBIL, NITRITES, UWBC, SSA IMMUNOSUPRESSIONNo results found for: FK506, CSA, RAPA INFECTIOUS DISEASESNo results found for: HIVSCN, CMVIGGAB, IGG ECHOCARDIOGRAM LV Ejection Fraction (%) Date Value 08/08/2021 55 08/12/2020 50 DIAGNOSTIC STUDIES (I have personally visualized and interpreted the following diagnostic imaging studies) 09/20/2020 Cardiac PET 1. PET Perfusion Study: Abnormal. 2. There is moderate (10-20%) ischemia in the territory of the LAD. 3. There is evidence of a small (<10%) scar in the territory of the LAD. 4. Left ventricle is normal in size. The left ventricle systolic function is normal. 5. There is a drop in ejection fraction post stess. 6. Right ventricle is normal in size. The right ventricle systolic function is normal. 7. This is a high risk scan. 8. Incidental Findings from limited non-diagnostic CTAC: Incidental Finding: Follow-up for lung nodule >= 0.6 cm visualized in the right lower lobe. Recommend dedicated chest CT and/or comparison to prior studies if available. Gated Stress TOF:SC:CTAC Gated Rest TOF:SC:CTAC LVEF % 52 60 08/08/2021 ECG SINUS RHYTHM WITH OCCASIONAL PREMATURE VENTRICULAR COMPLEXES INFERIOR MYOCARDIAL INFARCTION , AGE UNDETERMINED 08/08/2021 ECHO - The left ventricle is normal in size. Left ventricular systolic function is normal. EF = 55 5% (2D biplane) - The right ventricle is normal in size. Right ventricular systolic function is normal. - There are no significant valvular abnormalities. - Exam was compared with the prior CC echocardiographic exam performed on 08/12/2020 with mild interval improvement in LV fucntion and septal/apical wall motion abnormality. Otherwise, similar findings. 08/11/2021 Left and Right Heart Cath - Overall similar findings when compared to last catheterization in 09/2020. - Widely patent stents in the proximal to mid LAD. - Moderate lesions in the RCA and LCx, not hemodynamically significant by physiologic testing. (FFR 0.88 and 0.94 respectively) - No evidence of significant microvascular dysfunction. - Elevated bilateral filling pressures with borderline transpulmonary gradient. Preserved cardiac output/index. RA Mean 16.00 RV 44.00/16.00 PA 44.00/22.00 (29.00) PCWP V Wave 26.00 PCWP Mean 18.00 LV /14.00 Estimated Janiya CO = [125 x 2.24] / [(0.93-0.67) x 11.9 x 1.36 x 10] = 6.6 L/min Estimated Janiya CI = 2.9 SVR = (105-16)/6.6 x 80 = 1079 dynes PVR = (29-18)/6.6 = 1.7 ANDERSON RANDOLPH Mcdowellock is a pleasant 56 year old White female who comes to [facility] for evaluation and management of Consult. The primary encounter diagnosis was Acute on chronic heart failure with preserved ejection fraction (HCC). Diagnoses of Primary hypertension, Mixed hyperlipidemia, Obesity, Class III, BMI 40-49.9 (morbid obesity) ([facility]), Coronary artery disease involving [place] coronary artery of [place] heart, unspecified whether angina present, S/P drug eluting coronary stent placement, Type 2 diabetes mellitus with hyperglycemia, with long-term current use of insulin ([facility]), and Gastroesophageal reflux disease without esophagitis were also pertinent to this visit. Among other conditions mentioned above, Angie Serra suffers from Acute on Chronic HFpEF, NYHA III, Stage C; the etiology is Ischemic Cardiomyopathy. Angie Serra is Hypervolemic and well perfused today; she is currently not on optimal Guideline-Directed Medical Therapy (GDMT) for Heart Failure. Angie Serra is not in need of Advanced Heart Failure Therapies at this time. Uncontrolled HTN and volume overloaded. RECOMMENDATIONS Will start Entresto 50 mg twice daily Will increase Empagliflozin to 25 mg daily Will stop Isosorbide Will stop Furosemide Will start Torsemide 20 mg daily Continue to follow all other prescribed medical therapies and recommendations. Return to clinic in 4 weeks for follow up with fasting labs. I have discussed with the patient and family and caregivers when present, in simple terms, the likely etiologies of the patient's condition, its pathophysiology, prognosis, current status, diagnostic modalities, and both basic and advanced therapeutic options. In addition, we discussed guideline-recommended lifestyle modifications such as diet, weight management, exercise, and abstinence of tobacco, alcohol, and illicit substances. When appropriate, these were also documented in the Patient Instructions section of the After Visit Summary, which was printed and handed to the patient. The patient was also provided pertinent healthcare educational booklets available in our clinic. Orders Placed This Encounter [facility] OP FOLLOW UP APPT ORDER Order Specific Question: Schedule patient for follow up Answer: Yes Order Specific Question: Provider Answer: Johanne SNIDER [[id number]] Order Specific Question: CVM Section: Answer: Heart Failure Order Specific Question: Testing Options: Answer: BMP Order Specific Question: Return: Answer: 1 month BASIC METABOLIC PNL Standing Status: Future Standing Expiration Date: 11/14/2021 NT PRO BNP Standing Status: Future Standing Expiration Date: 11/14/2021 Scheduling Instructions: In preparation for this test, do not take multivitamins or dietary supplements containing biotin (vitamin B7) for at least 12 hours. Biotin is commonly found in hair, skin, and nail supplements and multivitamins. Tell your doctor if you take supplements containing biotin as part of your medication history. LIPID PANEL, FASTING Standing Status: Future Standing Expiration Date: 11/14/2021 Scheduling Instructions: Patient must be Fasting 10-12 hours prior to having blood drawn. (Water is permitted) [employer] 14 DAY SENSOR kit Sig: apply 1 SENSOR to back OF UPPER ARM REMOVE AND REPLACE every 14 d... (REFER TO PRESCRIPTION NOTES). empagliflozin (JARDIANCE) 25 mg tablet Sig: Take 1 tablet by mouth daily with breakfast. Dispense: 90 tablet Refill: 3 torsemide (DEMADEX) 20 mg tablet Sig: Take 1 tablet by mouth once daily. Dispense: 90 tablet Refill: 3 sacubitril-valsartan (ENTRESTO) 24-26 mg tablet Sig: Take 1 tablet by mouth twice daily. Dispense: 180 tablet Refill: 3 [facility] STAFF PHYSICIAN NOTE OF PERSONAL INVOLVEMENT IN CARE I have personally performed a [id number] diagnostic evaluation on this patient, including anamnesis and physical examination, review and analysis of pertinent available medical records, and personal visualization and interpretation of pertinent available diagnostic data. The patient s condition required a significant and separately identifiable evaluation and management service, above and beyond the usual pre- and post-procedure/operative care associated with any procedure or service performed. Total time spent on this visit included time spent preparing to see the patient, obtaining history of present illness, performing a medically appropriate physical examination, counseling and educating the patient and caregivers, ordering medications and diagnostic tests, communicating with other health care providers, documenting the clinical information in the electronic health record, independently interpreting diagnostic results and communicating these to the patient and caregivers, and coordinating care, among others. The health conditions of this patient carry a high risk of complications, morbidity, and/or mortality of patient management. These health conditions warrant a high level of medical decision making. This note was partially created using voice recognition software and is inherently subject to errors including those of syntax and sound-alike substitutions which may escape proofreading. In such instances, original meaning may be extrapolated by contextual derivation. September 14, 2021; 9:55 AM. Bethany Snider MD Staff, Section of Heart Failure and Transplantation Medicine [facility] Nataly Watt Department of Cardiovascular Medicine [facility] Heart, Vascular and Thoracic [place] [address] [place] Tel: [phone] Fax: [phone] Appt: [phone] documented in this encounter [facility] 08-25-2021 History of Present illness Narrative [facility] Nutrition Therapy: Virtual Consult Re-assessment This visit was performed virtually due to the COVID-19 epidemic as an effort to protect patients and minimize exposure. Consent from patient received to conduct visit virtually. This Team Access Model visit is a virtual encounter. It required patient-provider interaction for the medical decision making as documented below. PROGRESS: Nutrition Intervention (date of last encounter 06/27/2021): 1. Continue to not skip meals. 2. Continue to use protein shake 2x per day for meals 3. Use the Healthy Plate Method of portion control for dinner 4 oz lean meat (fish, chicken, pork tenderloin, turkey, seafood, eggs/cheese 1/2 plate non starchy vegetables (salad, greens, cabbage, spinach, brussel sprouts, broccoli, carrots, celery, peppers, green beans, cauliflower) 1 cup starch/starchy vegetables (corn, peas, oliva beans, winter squash, sweet potato, rice, pasta, potato) 4. Begin physical activity with a goal of 150 min of aerobic exercise per week. Include 2-3 days of strength exercises 2-3 times/week. Start to exercise from a sitting position: 20-25 minutes/session 3-4 x per week: Chair or standing Team Body Project https://www.Cadigo.com/watch?v=e8 opMY-SoZc Chair exercise LapSpace [email or web address]/resour ce/videos-[email or web address] Laura Pandey Easy walk in place 15 min [email or web address]://www.youLalaube.com/watch?v=nj [email or web address] Body Project 30 min https://KnowledgeMill.be/J-[email or web address] Laura Pandey Higher intensity walk 30 min [email or web address].Stimatix GIube.com/watch?v=cv [email or web address] 5. Drink 64 ounces per day water. Fluids should follow these guidelines: No carbonation, no caffeine, no calories, no alcohol. Separate foods and fluids by 20 minutes Goal weight pre-op is 225 lbs. Protein goal is 82 gm CHANGES IN TREATMENT: Patient met goal(s): Yes Actions to implement interventions: see assessment CLINICAL IMPRESSIONS: good Allergies: ALLERGIES No Known Allergies Medications: Current Outpatient Medications Medication Sig Dispense Refill furosemide (LASIX) 20 mg tablet Take 1 tablet by mouth once daily. 30 tablet 2 empagliflozin (JARDIANCE) 10 mg tablet Take 1 tablet by mouth daily with breakfast. 30 tablet 0 DULoxetine (CYMBALTA) 60 mg capsule Take 60 mg by mouth every Saturday,Saturday,Saturday. isosorbide mononitrate ER (IMDUR) 60 mg 24 hr tablet Take 60 mg by mouth once daily. carvedilol (COREG) 12.5 mg tablet Take 2 tablets by mouth twice daily with meals. LANTUS SOLOSTAR U-100 INSULIN 100 unit/mL (3 mL) Inject 30 Units subcutaneously as directed. CPAP Please Expedite for upcoming surgery. Settings 5 - 15 cm H2O, suitable mask per pt preference, chin strap, head gear, humidity, tubing, lifetime supplies. G47.33 RAYMUNDO 1 Each 11 ezetimibe (ZETIA) 10 mg tablet Take 1 tablet by mouth once daily. 90 tablet 3 fremanezumab-vfrm (AJOVY SYRINGE SUBCUTANEOUS) Inject 1 Dose subcutaneously once every month. HUMALOG KWIKPEN INSULIN 100 unit/mL Inject 4 Units subcutaneously as directed. atorvastatin (LIPITOR) 80 mg tablet Take 1 tablet by mouth once daily. 90 tablet 3 clopidogrel (PLAVIX) 75 mg tablet Take 1 tablet by mouth once daily. 90 tablet 3 cholecalciferol, Vitamin D3, (VITAMIN D3) 1,250 mcg (50,000 unit) cap capsule Take 1 capsule by mouth one time a week. [address] (PROTONIX) 40 mg tablet Take 1 tablet by mouth once daily. 30 tablet 2 aspirin (ASPIR-81 ORAL) once daily. WELCHOL 625 mg tablet 1,875 mg once daily. SUMAtriptan (IMITREX) 100 mg tablet take 1 tablet by mouth AT ONSET OF HEADACHE may repeat in 2 hours... (REFER TO PRESCRIPTION NOTES). Current Facility-Administered Medications Medication Dose Route Frequency Provider Last Rate Last Admin sodium chloride 0.9 % (flush) 10 mL (BD POSIFLUSH) 10 mL INTRAVENOUS DIRECTED PRN Tonie Martinez DO PAST MEDICAL HISTORY Diagnosis Date Diabetes mellitus (HCC) 20 years Essential hypertension GERD (gastroesophageal reflux disease) Mixed hyperlipidemia PAST SURGICAL HISTORY Procedure Laterality Date PAST SURGICAL HISTORY OF hip surgery x2 REMOVAL GALLBLADDER 1999 TOTAL ABD HYSTERECTOMY+BLAD REPR 1998 ANTHROPOMETRICS Height per patient: 65 Weight per patient: 263# Most recent height and weight per EPIC Height: Last 1 Encounter Ht Readings: Date: Ht: 08/07/2021 165.1 cm (5' 5 ) Weight: Last 1 Encounter Wt Readings: Date: Wt: 08/07/2021 119.9 kg (264 lb 6.4 oz) Body mass index is 43.77 kg/m . Resting Metabolic Rate: 1783 Malnutrition Screening Significant unintentional weight loss? No Eating less than 75% of usual intake for more than 2 weeks? No Potential Signs of Inflammation: no identifiable sources Nutritional status: RECOMMENDED MALNUTRITION DIAGNOSIS: NO MALNUTRITION IDENTIFIED Educational materials provided: None this visit Patient presents for follow up nutrition Virtual Consult. Patient reports unintentional weight gain 13# since last visit; may be related to fluid status as she was hospitalized last month due to fluid around her heart. Patient reports consistent intake with partial liquid diet. Main meal is healthy plate with limited carbs due to affecting glucose levels. Patient is checking sugars 4/day and ranges 110-180's. Fluids include decaf products and flavored water and she is mindful of intake (64 ounces) due to fluid accumulation- limits to 2 liters daily. Exercise is routine- walking 1/2 mile at least 5 days per week. Patient meets the National Institutes of Health guidelines for weight loss surgery and has [facility] insurance and therefore may be required to complete 6 months of Nutrition Intervention for clearance for surgery. This is 4 of 6 required visits (Alfredo 07/14/20, 02/20/21, 06/27/21, 08/25/21) Nutrition Diagnosis: Overweight/obesity, related to, decreased energy needs, as evidenced by BMI above normative standard for age and gender. Nutrition Intervention 08/24/2021: Modify type and amount of food consumed for meals and snacks: 1. Continue 2839-4669 calorie partial liquid diet (refer to handout) Breakfast: protein shake (200-250 calories, 15+ grams protein) plus 1 piece of fruit Lunch: protein shake (200-250 calories, 15+ grams protein) plus 1 piece of fruit Dinner: 4-5 ounces lean protein, 1 cup starch (bread/pasta/potatoes/corn/peas), unlimited non starchy vegetables 1 snack (< 150 calories) should contain protein 4. Continue physical activity with a goal of 150 min of aerobic exercise per week. Include 2-3 days of strength exercises 2-3 times/week. 5. Drink 64 ounces per day water. Fluids should follow these guidelines: No carbonation, no caffeine, no calories, no alcohol. Separate foods and fluids by 20 minutes Goal weight pre-op is 225 lbs. Protein goal is 82 gm Nutrition Monitoring & Evaluation: 1-2# weight loss per week Criteria: weight check Need for Follow up: 1 month MNT Billing Type: Re-assess/15 min 1 unit Signed by: Danuta Fuentes MS,RD,CSOWM,LD documented in this encounter [facility] 08-18-2021 Miscellaneous Notes 1. Have you noticed any increased shortness of breath since you left the hospital? (HVI Red Flag Question) No 2. Have you noticed any increased swelling in your feet, ankles or belly? (Heart Failure Red Flag Question) No 3. Have you gained more than 2 3 pounds since discharge? (HVI Red Flag Question) N/A 4. Have you noticed any changes to your incision or wound since you were discharged as we want to be aware of any signs of infection? (HVI Red Flag Question) No 5. Are you having any increased pain since discharge? If Yes: What type of pain and where? (HVI Red Flag Question) No 6. Have you had any unplanned trips to the Emergency Department or Hospital since you were discharged? If yes: Why? (Heart Failure Red Flag Question) No 7. Do you have any questions about how to take your medications? (Standard Question) No 8. Have you filled your prescriptions [if no-why? If related to cost - Do you need to be connected to someone who can help you with the cost?] Reminder: Please bring in your medications at your follow up appointment. (HVI Red Flag Question) Yes 9. Do you have a doctor s appointment scheduled or is someone working on getting you a follow-up appointment? (Standard Question) Yes documented in this encounter [facility] 08-14-2021 Miscellaneous Notes Called patient for follow up from recent hospital discharge but no answer, message left on [employer] including resource nurse phone number. documented in this encounter [facility] 08-12-2021 Miscellaneous Notes Ambulatory Pharmacy Prior Authorization Note Provider Intervention Required?: No- Pharmacy completed on your behalf. Drug: Jardiance 10mg Cover My Meds Broderick: [id number] Determination: Approved Prior Authorization/Case #: [id number] Prior Authorization Expiration: 08/12/2022 Time to PA Submission in CMM: 30 min Time to PA Determination in CMM: Same day Additional Information: For questions relating to this submission, please contact [facility] [place] [facility] at [phone] documented in this encounter [facility] 08-07-2021 History of Present illness Narrative Images from the original note were not included. Heart and Vascular [place] Nataly Watt Department of Cardiovascular Medicine SECTION OF CLINICAL CARDIOLOGY OUTPATIENT VISIT DATE August 07, 2021 OUTPATIENT VISIT TYPE ESTABLISHED PRIMARY CARE PHYSICIAN: Patti Valdez MD [address] [place] [address] CHIEF COMPLAINT: Followup visit HISTORY OF PRESENT ILLNESS: Ms. Serra is a 55 year old female who presents today for a cardiovascular medicine follow-up visit. She was last seen in office 01/2021. Today: She had shortness of breath that had developed over a couple of days in early July and went to her local hospital. HsTn 92.9 --> 77.3 --> 113 --> 87.6. She is ALWAYS compliant with her home ASA and Plavix. She was treated as an NSTEMI and started on a heparin gtt, nitro gtt, and started on imdur, which has caused headaches. None of these interventions have helped and in fact she thinks her shortness of breath is getting worse. CT PE was negative, chest XR was unrevealing, and ECHO showed no wall motion abnormalities. Because the ECHO looked good and she already had the appointment with Dr. Leon that they deferred a heart cath. She's most short of breath with even minimal walking. She can sweep the floors, clean the dishes, load the language interpreter, get dressed, and do laundry without shortness of breath. She had no other associated symptoms with the dyspnea: no chest pain, no nausea, no abdominal pain, no LE edema. She measures her BP at home and gets 120-140 systolics and 60-80s diastolic. This AM was 136/68. She significantly concerned about this shortness of breath because prior to her stent she was asymptomatic and ended up with a high grade stenosis. Shes worried that now she is actually symptomatic that there is a worse issue. In addition, her cousin was completely asymptomatic and had sudden cardiac . Coronary artery disease ? EKG 07/14/20 read as inferior NH and possible anterolateral infarction. Echo showing anteroseptal akinesis and apical thinning with EF 50% ? No history of angina or angina equivalent. ? Tobacco use: Quit 37 years ago < 1 ppd for less than 2 years ? Family History: Father: CAD NH CABG DM, HTN, HLD, Mother: DM HTN, Brother: CAD PCI stents x2 (Age 50) PPM bradycardia ? PET stress test that showed 10-20% ischemia in the LAD territory. Her most recent echo shows mild reduction in EF ? 10/06/20: Patient underwent cath s/p PCI of mLAD subtotal occlusion of the proximal LAD with MEGHAN 1 flow; the apical LAD fills via R-L collaterals. There is a discrete 50-60% focal lesion in the mid RCA. LMT: _ The LMT is normal. LAD: The proximal LAD is narrowed 99 % - Sub-total occlusion. LCX: _ The Circumflex has mild diffuse disease. RAMUS: _ The Ramus has mild diffuse disease. RCA: The RCA has mild diffuse disease. The mid RCA is narrowed 40 % - focal disease. There are right to left collaterals that fill the LAD. - IVUS-guided PCI to the ostial into proximal LAD with a 3.0 x 24 mm Synergy XD EES (post-dilated with a 3.5 mm NC at the proximal stent edge) and to the proximal into mid LAD with a 2.5 x 28 mm Synergy XD EES (post-dilated with a 3.0 mm NC) ? LDL 07/10: 107 --> 87 mg/dL on 02/15/21 (on Welchol, Lipitor 80mg, and Zetia) RAYMUNDO; diagnosed in 2020; pending followup with sleep medicine. IDDM, A1c 7.8% 01/2021. Cardiac Meds: ? Plavix 75mg ? Coreg 25 mg BID ? ASA 81mg ? Lipitor 80mg ? Zetia 10 mg qd ? Welchol IMPRESSION: Patient's dyspnea and elevated HsTn are most consistent with an NSTEMI for which she has not yet had a stress test or a heart cath. She was discharged from OSH without either. Patient now has worsening symptoms, which is concerning given that she was previously asymptomatic and ended up having a high grade stenosis needing intervention. It is less likely that her prior RCA stenosis has advanced. There is greater concern for re-stenosis at LAD stent. PLAN AND RECOMMENDATIONS: Recommend patient to go to ED given recent NSTEMI and worsening dyspnea. Low threshold for admission and LHC +/- RHC, PAST MEDICAL HISTORY Diagnosis Date Diabetes mellitus (HCC) 20 years Essential hypertension GERD (gastroesophageal reflux disease) Mixed hyperlipidemia PAST SURGICAL HISTORY Procedure Laterality Date PAST SURGICAL HISTORY OF hip surgery x2 REMOVAL GALLBLADDER 1999 TOTAL ABD HYSTERECTOMY+BLAD REPR 1998 SOCIAL HISTORY Social History Tobacco Use Smoking status: Former Smoker Packs/day: 0.50 Years: 2.00 Pack years: 1.00 Start date: 07/14/1969 Quit date: 07/14/1976 Years since quittin.0 Smokeless tobacco: Never Used Vaping Use Vaping Use: Never used Substance Use Topics Alcohol use: Yes Comment: occasionally Drug use: Never FAMILY HISTORY Problem Relation Age of Onset Diabetes Mother Hypertension Mother Obesity Mother Hyperlipidemia Mother Stroke Father Hypertension Father Diabetes Father Obesity Father Heart Attack Father other (cabg) Father Hyperlipidemia Father Heart Failure Father Diabetes Sister Obesity Sister Hyperlipidemia Sister Hypertension Sister Heart Brother Diabetes Brother Hypertension Brother Obesity Brother other (PCI) Brother Hyperlipidemia Brother No Known Problems Brother Heart Maternal Grandfather ALLERGIES: ALLERGIES No Known Allergies MEDICATIONS: isosorbide mononitrate ER (IMDUR) 60 mg 24 hr tablet Take 60 mg by mouth once daily. carvedilol (COREG) 12.5 mg tablet Take 2 tablets by mouth twice daily with meals. LANTUS SOLOSTAR U-100 INSULIN 100 unit/mL (3 mL) Inject 30 Units subcutaneously as directed. CPAP Please Expedite for upcoming surgery. Settings 5 - 15 cm H2O, suitable mask per pt preference, chin strap, head gear, humidity, tubing, lifetime supplies. G47.33 RAYMUNDO ezetimibe (ZETIA) 10 mg tablet Take 1 tablet by mouth once daily. fremanezumab-vfrm (AJOVY SYRINGE SUBCUTANEOUS) Inject 1 Dose subcutaneously once every month. HUMALOG KWIKPEN INSULIN 100 unit/mL Inject 4 Units subcutaneously as directed. atorvastatin (LIPITOR) 80 mg tablet Take 1 tablet by mouth once daily. clopidogrel (PLAVIX) 75 mg tablet Take 1 tablet by mouth once daily. cholecalciferol, Vitamin D3, (VITAMIN D3) 1,250 mcg (50,000 unit) cap capsule Take 1 capsule by mouth one time a week. pantoprazole DR (PROTONIX) 40 mg tablet Take 1 tablet by mouth once daily. aspirin (ASPIR-81 ORAL) once daily. WELCHOL 625 mg tablet 1,875 mg once daily. DULoxetine (CYMBALTA) 60 mg capsule Take 60 mg by mouth once daily. Three times weekly SUMAtriptan (IMITREX) 100 mg tablet take 1 tablet by mouth AT ONSET OF HEADACHE may repeat in 2 hours... (REFER TO PRESCRIPTION NOTES). REVIEW OF SYSTEMS: CONSTITUTIONAL: No weight loss, malaise or fevers. HEENT: Negative for frequent or significant headaches, No changes in hearing or vision, no nose bleeds or other nasal problems. RESPIRATORY: Negative for cough, wheezing, or shortness of breath CARDIOVASCULAR: Negative for chest pain, leg swelling or palpitations GI: Negative for abdominal discomfort, blood in stools or black stools or change in bowel habits. : No history of dysuria, frequency, or incontinence and No difficulty urination, nocturia >1 times per night or hematuria. MUSCULOSKELETAL: Negative for joint pain or swelling, back pain or muscle pain. ENDOCRINE: Negative for cold or heat intolerance, polyuria, polydipsia and goiter HEMATOLOGIC/LYMPHATIC: Negative for prolonged bleeding, bruising easily or swollen nodes. NEUROLOGIC: No history or headaches, syncope, paralysis, seizures or tremors. INTEGUMENTARY: Negative for lesions, rash, and itching. PHYSICAL EXAMINATION: BP 162/88 (BP Site: Left Arm) Pulse 98 Resp 12 Ht 165.1 cm (5' 5 ) Wt 121.6 kg (268 lb) SpO2 94% BMI 44.60 kg/m GENERAL: No acute distress SKIN: No rashes, no clubbing, no cyanosis. EYES: Extra ocular movements intact NECK: no carotid bruits or murmur radiation to carotid LUNGS: Clear to auscultation bilaterally, no wheezing or rhonchi. HEART: 3/6 systolic murmur best heard at RUSB without radiation to carotid or axilla, rrr, nml S1 and S2 EXTREMITIES: No peripheral edema. Regular distal pulses bilaterally. NEURO: Oriented to person, place and time, alert, cooperative, gait coordinated. CARDIOVASCULAR MEDICINE TESTING: Coronary Angiogram 10/06/20 Coronary Anatomy: Right Dominant LMT: _ The LMT is normal. LAD: The proximal LAD is narrowed 99 % - Sub-total occlusion. LCX: _ The Circumflex has mild diffuse disease. RAMUS: _ The Ramus has mild diffuse disease. RCA: The RCA has mild diffuse disease. The mid RCA is narrowed 40 % - focal disease. Additional Comment: There are right to left collaterals that fill the LAD. Impression: There is a subtotal occlusion of the ostial/prox LAD with right to left collaterals Recommended Treatment: Medical Therapy and PCI. Plan: Proceed with PCI of LAD Diagnostic angiography today showed subtotal occlusion of the proximal LAD with MEGHAN 1 flow; the apical LAD fills via R-L collaterals. There is a discrete 50-60% focal lesion in the mid RCA. Procedures Performed: - IVUS-guided PCI to the ostial into proximal LAD with a 3.0 x 24 mm Synergy XD EES (post-dilated with a 3.5 mm NC at the proximal stent edge) and to the proximal into mid LAD with a 2.5 x 28 mm Synergy XD EES (post-dilated with a 3.0 mm NC) PET Nuclear stress test 09/20/20 CONCLUSIONS: 1. PET Perfusion Study: Abnormal. 2. There is moderate (10-20%) ischemia in the territory of the LAD. 3. There is evidence of a small (<10%) scar in the territory of the LAD. 4. Left ventricle is normal in size. The left ventricle systolic function is normal. 5. There is a drop in ejection fraction post stess. 6. Right ventricle is normal in size. The right ventricle systolic function is normal. 7. This is a high risk scan. 8. Incidental Findings from limited non-diagnostic CTAC: - Incidental Finding: Follow-up for lung nodule >= 0.6 cm visualized in the right lower lobe. Recommend dedicated chest CT and/or comparison to prior studies if available. Electrocardiogram 08/12/2020 Labs: Component Latest Ref Rng & Units 02/15/2021 Hemoglobin A1C 4.3 - 5.6 % 7.8 (H) Component Latest Ref Rng & Units 02/15/2021 Cholesterol, Total <200 mg/dL 158 Triglyceride <150 mg/dL 147 HDL Cholesterol >39 mg/dL 42 LDL Cholesterol <100 mg/dL 87 Component Latest Ref Rng & Units 02/15/2021 TSH 0.270 - 4.200 uU/mL 1.250 Last 14 BP Last 14 Encounter BP Readings: Date: BP: 02/15/2021 137/64 09/27/2020 120/69 08/12/2020 143/83 07/14/2020 155/71 06/24/2020 132/56 06/10/2020 101/44 Echocardiogram CONCLUSIONS: - Technically difficult exam due to body habitus. - Exam indication: Abnormal ECG - The left ventricle is normal in size. Left ventricular systolic function is mildly decreased. EF = 50 5% (2D biplane) Definity contrast used for endocardial border detection. Left ventricular diastolic function was not evaluated due to E/A fusion. Thinned and akinetic septal wall segments as described above. - The right ventricle is normal in size. Right ventricular systolic function is normal. - There are no significant valvular abnormalities. - The patient has not had a prior CC echocardiographic exam for comparison. I have personally reviewed the reports from the [facility] Kira Scott DO Internal Medicine, PGY3 [facility] iPhone: August 07, 2021 3:47 PM In addition to the above history and physical exam, the results of prior labs and testing, were reviewed. The above plans and goals have been established to address current medical problems and optimize control of cardiovascular risk factors to reduce the risk of future heart disease. The majority of the visit was spent counseling and/or coordinating care for the patient. We discussed natural history of disease, current treatment options, and future potential treatment options. We discussed lifestyle modification including diet, exercise, blood pressure control and smoking cessation if applicable, and general heart health/prevention. Thank you for your visit today. Please reach out to me either by phone or over MyChart with questions/concerns at any time. Reed Leon MD Staff, Section of Clinical Cardiology Nataly Watt Department of Cardiovascular Medicine [facility] Heart, Vascular and Thoracic [place] [facility] Office: [phone] documented in this encounter [facility] 08-07-2021 History of Past i llness Narrative Problem Noted Date Resolved Date NSTEMI (non-ST elevated myocardial infarction) 0 08/07/2021 08/12/2021 documented as of this encounter (statuses as of 08/12/2021) [facility]2022 History of Past illness Narrative* Problem Noted Date Resolved Date NSTEMI (non-ST elevated myocardial infarction) 0 08/07/2021 08/12/2021 documented as of this encounter (statuses as of 08/14/2021) [facility] History of Past illness Narrative* Problem Noted Date Resolved Date NSTEMI (non-ST elevated myocardial infarction) 0 08/07/2021 08/12/2021 documented as of this encounter (statuses as of 08/18/2021) [facility] [facility] Narrative* Problem Noted Date Resolved Date NSTEMI (non-ST elevated myocardial infarction) 0 08/07/2021 08/12/2021 documented as of this encounter (statuses as of 08/25/2021) [facility] History of Past illness Narrative* Problem Noted Date Resolved Date NSTEMI (non-ST elevated myocardial infarction) 0 08/07/2021 08/12/2021 documented as of this encounter (statuses as of 09/20/2021) [facility] History of Past illness Narrative* Problem Noted Date Resolved Date NSTEMI (non-ST elevated myocardial infarction) 0 08/07/2021 08/12/2021 documented as of this encounter (statuses as of 09/25/2021) [facility] History of Past illness Narrative* Problem Noted Date Resolved Date NSTEMI (non-ST elevated myocardial infarction) 0 08/07/2021 08/12/2021 documented as of this encounter (statuses as of 10/02/2021) [facility] History of Past illness Narrative* Problem Noted Date Resolved Date NSTEMI (non-ST elevated myocardial infarction) 0 08/07/2021 08/12/2021 documented as of this encounter (statuses as of 10/06/2021) [facility] History of Past illness Narrative* Problem Noted Date Resolved Date NSTEMI (non-ST elevated myocardial infarction) 0 08/07/2021 08/12/2021 documented as of this encounter (statuses as of 10/24/2021) [facility] History of Past illness Narrative* Problem Noted Date Resolved Date NSTEMI (non-ST elevated myocardial infarction) 0 08/07/2021 08/12/2021 documented as of this encounter (statuses as of 10/24/2021) [facility] History of Past illness Narrative* Problem Noted Date Resolved Date NSTEMI (non-ST elevated myocardial infarction) 0 08/07/2021 08/12/2021 documented as of this encounter (statuses as of 10/26/2021) [facility] History of Past illness Narrative* Problem Noted Date Resolved Date NSTEMI (non-ST elevated myocardial infarction) 0 08/07/2021 08/12/2021 documented as of this encounter (statuses as of 10/26/2021) [facility] History of Past illness Narrative* Problem Noted Date Resolved Date NSTEMI (non-ST elevated myocardial infarction) 0 08/07/2021 08/12/2021 documented as of this encounter (statuses as of 11/08/2021) [address]21-2022 History of Past illness Narrative* Problem Noted Date Resolved Date NSTEMI (non-ST elevated myocardial infarction) 0 08/07/2021 08/12/2021 documented as of this encounter (statuses as of 11/08/2021) [address]21-2022 History of Past illness Narrative* Problem Noted Date Resolved Date NSTEMI (non-ST elevated myocardial infarction) 0 08/07/2021 08/12/2021 documented as of this encounter (statuses as of 11/09/2021) [facility] History of Past illness Narrative* Problem Noted Date Resolved Date NSTEMI (non-ST elevated myocardial infarction) 0 08/07/2021 08/12/2021 documented as of this encounter (statuses as of 11/10/2021) [facility] History of Past illness Narrative* Problem Noted Date Resolved Date NSTEMI (non-ST elevated myocardial infarction) 0 08/07/2021 08/12/2021 documented as of this encounter (statuses as of 11/13/2021) [facility] History of Past illness Narrative* Problem Noted Date Resolved Date NSTEMI (non-ST elevated myocardial infarction) 0 08/07/2021 08/12/2021 documented as of this encounter (statuses as of 11/13/2021) [facility] History of Past illness Narrative* Problem Noted Date Resolved Date NSTEMI (non-ST elevated myocardial infarction) 0 08/07/2021 08/12/2021 documented as of this encounter (statuses as of 11/21/2021) [address]21-2022 History of Past illness Narrative* Problem Noted Date Resolved Date NSTEMI (non-ST elevated myocardial infarction) 0 08/07/2021 08/12/2021 documented as of this encounter (statuses as of 11/22/2021) [facility] History of Past illness Narrative* Problem Noted Date Resolved Date NSTEMI (non-ST elevated myocardial infarction) 0 08/07/2021 08/12/2021 documented as of this encounter (statuses as of 12/01/2021) [facility] History of Past illness Narrative* Problem Noted Date Resolved Date NSTEMI (non-ST elevated myocardial infarction) 0 08/07/2021 08/12/2021 documented as of this encounter (statuses as of 01/09/2022) [address]21-2022 History of Past illness Narrative* Problem Noted Date Resolved Date NSTEMI (non-ST elevated myocardial infarction) 0 08/07/2021 08/12/2021 documented as of this encounter (statuses as of 02/19/2022) [address]21-2022 History of Past illness Narrative* Problem Noted Date Resolved Date NSTEMI (non-ST elevated myocardial infarction) 0 08/07/2021 08/12/2021 documented as of this encounter (statuses as of 03/16/2022) [facility] History of Past illness Narrative* Problem Noted Date Resolved Date NSTEMI (non-ST elevated myocardial infarction) 0 08/07/2021 08/12/2021 documented as of this encounter (statuses as of 2022) [address]21-2022 History of Past illness Narrative* Problem Noted Date Resolved Date NSTEMI (non-ST elevated myocardial infarction) 0 08/07/2021 08/12/2021 documented as of this encounter (statuses as of 07/31/2022) [address]21-2022 History of Past illness Narrative* Problem Noted Date Diagnosed Date Resolved Date NSTEMI (non-ST elevated myoc ardial infarction) 08/07/2021 08/12/2021 documented as of this encounter (statuses as of 12/27/2022) [facility] History of Past illness Narrative* Problem Noted Date Diagnosed Date Resolved Date NSTEMI (non-ST elevated myoc ardial infarction) 08/07/2021 08/12/2021 documented as of this encounter (statuses as of 12/28/2022) [facility] note* Diagnosis Dyspnea, unspecified type- Primary documented in this encounter [facility] note* Diagnosis Diabetes mellitus type 2 in obese ([facility])- Primary Type II or unspecified type diabetes mellitus without mention of complication, not stated as uncontrolled Dietary counseling and surveillance Dietary surveillance and counseling documented in this encounter [facility] note* Diagnosis Diabetes mellitus type 2 in obese (HCC)- Primary Type II or unspecified type diabetes mellitus without mention of complication, not stated as uncontrolled Dietary counseling and surveillance Dietary surveillance and counseling documented in this encounter [facility] note* Diagnosis Acute on chronic heart failure with preserved ejection fraction ([facility])- Primary Primary hypertension Unspecified essential hypertension Mixed hyperlipidemia Obesity, Class III, BMI 40-49.9 (morbid obesity) ([facility]) Morbid obesity Coronary artery disease involving [place] coronary artery of [place] heart, unspecified whether angina present S/P drug eluting coronary stent placement Postsurgical percutaneous transluminal coronary angioplasty status Type 2 diabetes mellitus with hyperglycemia, with long-term current use of insulin ([facility]) Gastroesophageal reflux disease without esophagitis Esophageal reflux documented in this encounter [facility] note* Diagnosis Heart failure with preserved ejection fraction, unspecified HF chronicity ([facility])- Primary documented in this encounter [facility] note* Diagnosis RAYMUNDO (obstructive sleep apnea)- Primary Obstructive sleep apnea (adult) (pediatric) Vitamin D deficiency Unspecified vitamin D deficiency documented in this encounter [facility] note* Diagnosis BMI 40.0-44.9, adult ([facility])- Primary Body Mass Index 40.0-44.9, adult Dietary counseling Dietary surveillance and counseling documented in this encounter [facility] note* Diagnosis Heart failure with preserved ejection fraction, unspecified HF chronicity ([facility])- Primary Primary hypertension Unspecified essential hypertension Mixed hyperlipidemia Obesity, Class III, BMI 40-49.9 (morbid obesity) ([facility]) Morbid obesity Coronary artery disease involving [place] coronary artery of [place] heart, unspecified whether angina present S/P drug eluting coronary stent placement Postsurgical percutaneous transluminal coronary angioplasty status Type 2 diabetes mellitus with hyperglycemia, with long-term current use of insulin (HCC) Gastroesophageal reflux disease without esophagitis Esophageal reflux [facility] Diagnosis Postoperative pain- Primary Other acute postoperative pain Morbid obesity (HCC) Morbid obesity Type 2 diabetes mellitus with morbid obesity (HCC) Morbid obesity (HCC) Morbid obesity [facility] Diagnosis Bariatric surgery status- Primary documented in this encounter [facility] note* Diagnosis Coronary artery disease involving [place] coronary artery of [place] heart, unspecified whether angina present [facility] Diagnosis Impaired intestinal absorption- Primary Unspecified intestinal malabsorption S/P gastric bypass Bariatric surgery status Obesity, Class II, BMI 35-39.9 Obesity, unspecified Dietary counseling and surveillance Dietary surveillance and counseling [facility] Diagnosis BMI 30.0-30.9,adult- Primary Body Mass Index 30.0-30.9, adult Dietary counseling Dietary surveillance and counseling documented in this encounter [facility] Summary Purpose Family History No Family History Records FoundNo Family History Records FoundNo Family History Records FoundNo Family History Records Found Advance Directives No Advanced Directives Records FoundDocuments on File Type Date Recorded 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 Advance Directive(s) 08/07/2021 8:20 PM Advance Directive(s) 09/28/2020 2:26 PM Advance Directive(s) 06/27/2020 10:57 AM Advance Directive(s) 06/24/2020 6:34 AM Advance Directive(s) 06/16/2020 12:40 PM Latest Code Status on File Code Status Date Activated Date Inactivated Comments Full Code 08/07/2021 10:39 PM Full Code Order Discussed With: Patient Latest Code Status on File Code Status Date Activated Date Inactivated Comments Full Code 08/07/2021 10:39 PM 08/12/2021 6:19 PM Documents on File Type Date Recorded 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 Advance Directive(s) 08/07/2021 8:20 PM Advance Directive(s) 09/28/2020 2:26 PM Advance Directive(s) 06/27/2020 10:57 AM Advance Directive(s) 06/24/2020 6:34 AM Advance Directive(s) 06/16/2020 12:40 PM Latest Code Status on File Code Status Date Activated Date Inactivated Comments Full Code 08/07/2021 10:39 PM 08/12/2021 6:19 PM Documents on File Type Date Recorded 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 Advance Directive(s) 11/13/2021 8:32 AM Advance Directive(s) 08/07/2021 8:20 PM Advance Directive(s) 09/28/2020 2:26 PM Advance Directive(s) 06/27/2020 10:57 AM Advance Directive(s) 06/24/2020 6:34 AM Advance Directive(s) 06/16/2020 12:40 PM Latest Code Status on File Code Status Date Activated Date Inactivated Comments Full Code 08/07/2021 10:39 PM 08/12/2021 6:19 PM Question Answer Comments Full Code Order Discussed With: Patient Procedure Findings Note HNO ID: [id number] Author: Tessa Barnhart DO Service: General Surgery Author Type: Resident Type: Brief Op Note Filed: 07/01/2020 10:47 AM Note Text: BRIEF OPERATIVE NOTE - GENERAL SURGERY Log ID: [id number] Surgery/Procedure Date: 07/01/2020 Incision/Procedure Start Time: 10:04 AM Incision Close/Procedure End Time: 10:43 AM Surgeon(s) and Batting Machine Operator(s): Surgeon(s) and Role: * Salbador Hernandez - Primary No Additional Staff Procedures and Anesthesia: Procedure(s) and Anesthesia Type: * COLONOSCOPY - Procedural Sedation Findings: Normal colonoscopy, tortuous colon Estimated Blood Loss: None Specimens: None Diagnosis Code(s): Pre-Op Diagnosis Codes: * Pre-op exam [Z01.818] Postop Diagnosis: Normal colonoscopy Drains: None Wound Classification: Class 1, operative wound clean, non-traumatic, with no inflammation encountered, no break in technique, gastrointestinal and genitor-urinary tracts not entered Complications: None SIGNATURE: Isaac Barnhart DO PATIENT NAME: Angie Serra DATE: (more content not included)... Reason for Referral Specialty Diagnoses / Procedures Referred By Steven ma Referred To Contact Johanne Snider MD [address] [place] [address] Referral ID Status Reason Start Date Expiration Date Visits Re quested Visits Authorized [id number] Closed 1 1 Health Concerns Infection Onset Date Last Indicated Resolved Time COVID-19 Rule-Out 11/12/2021 11/12/2021 11/13/2021 3:44 AM EDT Additional Source Comments INFORMATION SOURCE (unrecogn ized section and content) DATE CREATED AUTHOR 07/02/2020 [facility] DATE CREATED AUTHOR AUTHOR'S ORGANIZ ATION 11/14/2021 [facility] DATE CREATED AUTHOR AUTHOR'S ORGANIZ ATION 03/22/2022 [facility] DATE CREATED AUTHOR AUTHOR'S ORGANIZ ATION 06/20/[address] [facility] Source Comments (unrecognize d section and content) In the event this informatio n is protected by the Federal Confidentiality of Alcohol and Drug Abuse Patient Records regulations: The Federal rules restrict any use of the information to criminally investigate or prosecute any alcohol or drug abuse patient.[facility] the event this information is protected by the Federal Confidentiality of Alcohol and Drug Abuse Patient Records regulations: The Federal rules restrict any use of the information to criminally investigate or prosecute any alcohol or drug abuse patient.[facility] the event this information is protected by the Federal Confidentiality of Alcohol and Drug Abuse Patient Records regulations: The Federal rules restrict any use of the information to criminally investigate or prosecute any alcohol or drug abuse patient.[facility] the event this information is protected by the Federal Confidentiality of Alcohol and Drug Abuse Patient Records regulations: The Federal rules restrict any use of the information to criminally investigate or prosecute any alcohol or drug abuse patient.[facility] the event this information is protected by the Federal Confidentiality of Alcohol and Drug Abuse Patient Records regulations: The Federal rules restrict any use of the information to criminally investigate or prosecute any alcohol or drug abuse patient.[facility] the event this information is protected by the Federal Confidentiality of Alcohol and Drug Abuse Patient Records regulations: The Federal rules restrict any use of the information to criminally investigate or prosecute any alcohol or drug abuse patient.[facility] the event this information is protected by the Federal Confidentiality of Alcohol and Drug Abuse Patient Records regulations: The Federal rules restrict any use of the information to criminally investigate or prosecute any alcohol or drug abuse patient.[facility] the event this information is protected by the Federal Confidentiality of Alcohol and Drug Abuse Patient Records regulations: The Federal rules restrict any use of the information to criminally investigate or prosecute any alcohol or drug abuse patient.[facility] the event this information is protected by the Federal Confidentiality of Alcohol and Drug Abuse Patient Records regulations: The Federal rules restrict any use of the information to criminally investigate or prosecute any alcohol or drug abuse patient.[facility] the event this information is protected by the Federal Confidentiality of Alcohol and Drug Abuse Patient Records regulations: The Federal rules restrict any use of the information to criminally investigate or prosecute any alcohol or drug abuse patient.[facility] the event this information is protected by the Federal Confidentiality of Alcohol and Drug Abuse Patient Records regulations: The Federal rules restrict any use of the information to criminally investigate or prosecute any alcohol or drug abuse patient.[facility] the event this information is protected by the Federal Confidentiality of Alcohol and Drug Abuse Patient Records regulations: The Federal rules restrict any use of the information to criminally investigate or prosecute any alcohol or drug abuse patient.[facility] the event this information is protected by the Federal Confidentiality of Alcohol and Drug Abuse Patient Records regulations: The Federal rules restrict any use of the information to criminally investigate or prosecute any alcohol or drug abuse patient.[facility] the event this information is protected by the Federal Confidentiality of Alcohol and Drug Abuse Patient Records regulations: The Federal rules restrict any use of the information to criminally investigate or prosecute any alcohol or drug abuse patient.[facility] the event this information is protected by the Federal Confidentiality of Alcohol and Drug Abuse Patient Records regulations: The Federal rules restrict any use of the information to criminally investigate or prosecute any alcohol or drug abuse patient.[facility] the event this information is protected by the Federal Confidentiality of Alcohol and Drug Abuse Patient Records regulations: The Federal rules restrict any use of the information to criminally investigate or prosecute any alcohol or drug abuse patient.[facility] the event this information is protected by the Federal Confidentiality of Alcohol and Drug Abuse Patient Records regulations: The Federal rules restrict any use of the information to criminally investigate or prosecute any alcohol or drug abuse patient.[facility] the event this information is protected by the Federal Confidentiality of Alcohol and Drug Abuse Patient Records regulations: The Federal rules restrict any use of the information to criminally investigate or prosecute any alcohol or drug abuse patient.[facility] the event this information is protected by the Federal Confidentiality of Alcohol and Drug Abuse Patient Records regulations: The Federal rules restrict any use of the information to criminally investigate or prosecute any alcohol or drug abuse patient.[facility] the event this information is protected by the Federal Confidentiality of Alcohol and Drug Abuse Patient Records regulations: The Federal rules restrict any use of the information to criminally investigate or prosecute any alcohol or drug abuse patient.[facility] the event this information is protected by the Federal Confidentiality of Alcohol and Drug Abuse Patient Records regulations: The Federal rules restrict any use of the information to criminally investigate or prosecute any alcohol or drug abuse patient.[facility] the event this information is protected by the Federal Confidentiality of Alcohol and Drug Abuse Patient Records regulations: The Federal rules restrict any use of the information to criminally investigate or prosecute any alcohol or drug abuse patient.[facility] the event this information is protected by the Federal Confidentiality of Alcohol and Drug Abuse Patient Records regulations: The Federal rules restrict any use of the information to criminally investigate or prosecute any alcohol or drug abuse patient.[facility] the event this information is protected by the Federal Confidentiality of Alcohol and Drug Abuse Patient Records regulations: The Federal rules restrict any use of the information to criminally investigate or prosecute any alcohol or drug abuse patient.[facility] the event this information is protected by the Federal Confidentiality of Alcohol and Drug Abuse Patient Records regulations: The Federal rules restrict any use of the information to criminally investigate or prosecute any alcohol or drug abuse patient.[facility] the event this information is protected by the Federal Confidentiality of Alcohol and Drug Abuse Patient Records regulations: The Federal rules restrict any use of the information to criminally investigate or prosecute any alcohol or drug abuse patient.[facility] the event this information is protected by the Federal Confidentiality of Alcohol and Drug Abuse Patient Records regulations: The Federal rules restrict any use of the information to criminally investigate or prosecute any alcohol or drug abuse patient.[facility] the event this information is protected by the Federal Confidentiality of Alcohol and Drug Abuse Patient Records regulations: The Federal rules restrict any use of the information to criminally investigate or prosecute any alcohol or drug abuse patient.[facility] the event this information is protected by the Federal Confidentiality of Alcohol and Drug Abuse Patient Records regulations: The Federal rules restrict any use of the information to criminally investigate or prosecute any alcohol or drug abuse patient.[facility] the event this information is protected by the Federal Confidentiality of Alcohol and Drug Abuse Patient Records regulations: The Federal rules restrict any use of the information to criminally investigate or prosecute any alcohol or drug abuse patient.[facility] Care Teams (unrecognized sec tion and content) [employer] Former Relationship Specialty Start Date End Date Patti Valdez MD [address] [id number] PCP - General Family Practice 06/16/20 Reed Leon MD [address] [place] [address] Primary Staff Physician Cardiology 11/08/20 [employer] Former Relationship Specialty Start Date End Date Patti Valdez MD [address] [place] [address] PCP - General Family Practice 06/16/20 Reed Leon MD [address] [place] [address] Primary Staff Physician Cardiology 11/08/20 [employer] Former Relationship Specialty Start Date End Date Patti Valdez MD [address] [place] [address] PCP - General Family Practice 06/16/20 Reed Leon MD [address] [place] [address] Primary Staff Physician Cardiology 11/08/20 [employer] Former Relationship Specialty Start Date End Date Patti Valdez MD [address] [place] [address] PCP - General Family Practice 06/16/20 Reed Leon MD [address] [place] [address] Primary Staff Physician Cardiology 11/08/20 [employer] Former Relationship Specialty Start Date End Date Patti Valdez MD [address] [place] [address] PCP - General Family Practice 06/16/20 Reed Leon MD [address] [place] [address] Primary Staff Physician Cardiology 11/08/20 [employer] Former Relationship Specialty Start Date End Date Patti Valdez MD [address] [place] [address] PCP - General Family Practice 06/16/20 Reed Leon MD [address] [place] [address] Primary Staff Physician Cardiology 11/08/20 [employer] Former Relationship Specialty Start Date End Date Patti Valdez MD [address] [place] [address] PCP - General Family Practice 06/16/20 Reed Leon MD [address] [place] [address] Primary Staff Physician Cardiology 11/08/20 [employer] Former Relationship Specialty Start Date End Date Patti Valdez MD [address] [place] [address] PCP - General Family Practice 06/16/20 Reed Leon MD [address] [place] [address] Primary Staff Physician Cardiology 11/08/20 [employer] Former Relationship Specialty Start Date End Date Patti Valdez MD [address] [place] [address] PCP - General Family Practice 06/16/20 Reed Leon MD [address] [place] [address] Primary Staff Physician Cardiology 11/08/20 [facility] Former Relationship Specialty Start Date End Date Patti Valdze MD [address] [place] [address] PCP - General Family Practice 06/16/20 Reed Leon MD [address] [place] [address] Primary Staff Physician Cardiology 11/08/20 [facility] Former Relationship Specialty Start Date End Date Patti Valdez MD [address] [place] [address] PCP - General Family Practice 06/16/20 Reed Leon MD [address] [place] [address] Primary Staff Physician Cardiology 11/08/20 [facility] Former Relationship Specialty Start Date End Date Patti Valdez MD [address] [place] [address] PCP - General Family Practice 06/16/20 Reed Leon MD [address] [place] [address] Primary Staff Physician Cardiology 11/08/20 [facility] Former Relationship Specialty Start Date End Date Patti Valdez MD [address] [place] [address] PCP - General Family Practice 06/16/20 Reed Leon MD [address] [place] [address] Primary Staff Physician Cardiology 11/08/20 [facility] Former Relationship Specialty Start Date End Date Patti Valdez MD [address] [place] [address] PCP - General Family Medicine 06/16/20 Reed Leon MD [address] [place] [address] Primary Staff Physician Cardiology 11/08/20 [facility] Former Relationship Specialty Start Date End Date Patti Valdez MD [address] [place] [address] PCP - General Family Medicine 06/16/20 Rede Leno MD [address] [place] [address] Primary Staff Physician Cardiology 11/08/20 [facility] Former Relationship Specialty Start Date End Date Patti Valdez MD [address] [place] [address] PCP - General Family Medicine 06/16/20 Reed Leon MD [address] [place] [address] Primary Staff Physician Cardiology 11/08/20 [facility] Former Relationship Specialty Start Date End Date Patti Valdez MD PCP - General Family Medicine 06/16/20 Reed Leon MD [address] [place] [address] Primary Staff Physician Cardiology 11/08/20 [facility] Former Relationship Specialty Start Date End Date Patti Valdez MD PCP - General Family Medicine 06/16/20 Reed Leon MD [address] [place] [address] Primary Staff Physician Cardiology 11/08/20 Reason for Visit (unrecogniz ed section and content) Reason Comments Insurance Authorization Reason Comments Follow Up Phone Call relate care dischar ge follow up-1st attempt-no contact-left vm Reason Comments Follow Up Phone Call [facility] Follow Up Call Reason Comments Patient Education Reassessment Reason Comments Medication Authorization Entresto Reason Comments Consult Reason Comments Follow Up Reason Comments Heart Failure Reason Comments BMI Follow Up Reason Comments Schedule Surgery Reason Comments Counseling Reason Comments Preparations For Surgery Reason Comments Returning Patient's Call Reason Comments Pre-Op Exam Reason Comments Post Op Reason Comments Refill Request Reason Onset Date Comments Reassessment 01/09/2022 Patient Education 01/09/2022 Reason Comments CMN Reason Comments cmn Reason Comments Rx Refills FOR RECORDS PERTAINING TO PATIENTS WHO ARE OR HAVE BEEN ENROLLED IN A CHEMICAL DEPENDENCY/SUBSTANCEABUSE PROGRAM, SOME INFORMATION MAY BE OMITTED. This clinical summary was aggregated from multiple sources. Caution should be exercised in using it in the provision of clinical care. This summary normalizes information from multiple sources, and as a consequence, information in this document may materially change the coding, format and clinical context of patient data. In addition, data may be omitted in some cases. CLINICAL DECISIONS SHOULD BE BASED ON THE PRIMARY CLINICAL RECORDS. [facility] provides no warranty or guarantee of the accuracy or completeness of information in this document.
--- NOTE | 2023-06-26 06:44 | PC.NURSE ---
pt was using an [employer] slicer and cut left index finger
--- NOTE | 2023-06-26 07:04 | XR_ITS ---
The [address] [address] Patient Name: MUNIRA CALHOUN MRN: [id number] date: 1965 Sex: F Assigned Patient Location: ER Current Patient Location: ER Accession/Order Number: [id number] Exam Date: 06/26/2023 07:10 Report Date: 06/26/2023 07:48 At the request of: JASON ROBERTS Procedure: XR finger LT min 2V PROCEDURE: XR finger LT min 2V HISTORY: cut index finger COMPARISON: None. FINDINGS: BONES:No fracture, acute abnormality, or significant arthropathy. SOFT TISSUES:Soft tissue defect involving tip of second digits. No radiopaque foreign body. EFFUSION:None visible. OTHER: Negative. XR/XR finger LT min 2V IMPRESSION: 1. Soft tissue injury to tip of second digit; no radiopaque foreign body. 2. No bone involvement. Electronically authenticated by: YENNY HOLMAN Date: 06/26/2023 07:48
--- NOTE | 2023-06-26 07:12 | ED_ITS ---
HPI - Wound/Laceration General Chief Complaint: Wound/Laceration Stated Complaint: L FINGER LACERATION Time Seen by Provider: 06/26/23 06:46 Source: patient Mode of arrival: walk-in Limitations: no limitations History of Present Illness HPI narrative: Patient accidentally cut her left index finger while using an apple slicer. It occurred just before ED arrival. She is NOT up to date on her tetanus. No other injuries sustained. ED nurse soaked the hand in hibiclens solutionat arrival. Related Data Home Medications Medication Instructions Recorded Confirmed aspirin 81 mg tablet,delayed mg 06/26/23 release atorvastatin 80 mg tablet mg 06/26/23 carvedilol 25 mg tablet mg 06/26/23 colesevelam 625 mg tablet mg 06/26/23 empagliflozin 10 mg tablet mg 06/26/23 (Jardiance) ezetimibe 10 mg tablet mg 06/26/23 isosorbide mononitrate 60 mg mg PO 06/26/23 tablet,extended release 24 hr pantoprazole 40 mg tablet,delayed mg PO 06/26/23 release sacubitril 24 mg-valsartan 26 mg tab 06/26/23 tablet (Entresto) Allergies Allergy/AdvReac Type Severity Reaction Status Date / Time No Known Drug Allergies Allergy Verified 06/26/23 06:31 [facility] Social History Smoking status: Never smoker Exam Narrative Exam Narrative: Nurses notes and vital signs reviewed and patient is not hypoxic. afebrile General: Well-appearing and in no apparent distress. Skin: Warm, dry, no pallor noted. Cardiovascular: Regular Rate and Rhythm without murmur, gallop or rub. Normal peripheral perfusion Respiratory: No accessory muscle use or respiratory distress. Lungs are clear to auscultation, no wheezing, rales or rhonchi Musculoskeletal: All fingers of the left hand with normal ROM. Left wrist with normal ROM, no hand edema/swelling. Remainder of the left hand unremarkable. Neurological: A&O x4. No cranial nerve dysfunction observed. No truncal ataxia. Moves all extremities. Sensation intact. Psychiatric: Cooperative and interactive. Normal mood and affect. Constitutional Vital Signs, click to edit/add: Last Vital Signs Temp 98.4 F 06/26/23 06:28 Pulse 83 06/26/23 06:28 Resp 16 06/26/23 06:28 BP 126/66 06/26/23 06:28 Pulse Ox 95 06/26/23 06:28 O2 Del Method Room Air 06/26/23 06:28 Course Vital Signs Vital signs: Vital Signs Temperature 98.4 F 06/26/23 06:28 Pulse Rate 83 06/26/23 06:28 Respiratory Rate 16 06/26/23 06:28 Blood Pressure 126/66 06/26/23 06:28 Pulse Oximetry 95 06/26/23 06:28 Oxygen Delivery Method Room Air 06/26/23 06:28 Temperature 98.4 F 06/26/23 06:28 Pulse Rate 83 06/26/23 06:28 Respiratory Rate 16 06/26/23 06:28 Blood Pressure 126/66 06/26/23 06:28 Pulse Oximetry 95 06/26/23 06:28 Oxygen Delivery Method Room Air 06/26/23 06:28 MDM - Wound/Laceration MDM Narrative Medical decision making narrative: Patient's tetanus updated. Xrays left index finger obtained. No fracture identified. Patient's laceration suture closed -- see procedure note. Patient discharged home with instruction to watch for infection, keep bandaged and clean, sutures out in 10 days Imaging Data xr finger: Radiologist's impression: ITS Impressions Finger X-Ray 06/26/23 07:04 IMPRESSION: 1. Soft tissue injury to tip of second digit; no radiopaque foreign body. 2. No bone involvement. Electronically authenticated by: YENNY HOLMAN Date: 06/26/2023 07:48 Discharge Plan Discharge Chief Complaint: Wound/Laceration Clinical Impression: Laceration of left index finger Patient Disposition: Home, Self-Care Time of Disposition Decision: 07:26 Prescriptions / Home Meds: No Action atorvastatin 80 mg tablet carvedilol 25 mg tablet aspirin 81 mg tablet,delayed release (DR/EC) isosorbide mononitrate 60 mg tablet extended release 24 hr PO colesevelam 625 mg tablet pantoprazole 40 mg tablet,delayed release (DR/EC) PO ezetimibe 10 mg tablet Jardiance 10 mg tablet Entresto 24-26 mg tablet Instructions: Finger Laceration (ED) Stand Alone Forms: Portal Instructions Referrals: Noah Swann MD [Primary Care Provider] - 1 week Procedures ED Laceration Laceration Laceration 1: Additional comments: Laceration repair: All of the procedure was done under sterile conditions. Wound cleansed with betadine and anesthetized with local injection of approximately 2mL of lidocaine 1% without epinephrine. The wound was irrigated copiously with sterile normal saline. The wound was explored to depth and found to be free of foreign material. The laceration wound edges were well- approximated and did not require revision. Wound closed with 5 sterile 4-0 ethilon sutures in simple interrupted fashion. Patient tolerated the procedure well. The patient was neurovascularly intact post-repair. Topical bacitracin applied to the laceration and it was dressed with a dry sterile dressing. The patient will need to follow-up in the next 10 days for removal.
[2023-06-26] MEDS: ADACEL DIPH,PERTUSS(ACELL),TET VAC/PF 0.5 ML ADULT SYRINGE IM (07:50)
[2023-06-26] MEDS: LIDOCAINE HCL 1% 100 MG/10 ML MDV INJ (07:51)
== END 2023-06-26 08:01 | disposition home or self-care (01) ==
PROVIDERS: Emergency Provider Emergency Medicine; PCP Family Medicine
DX: Z79.82 Long term (current) use of aspirin (principal); Z23 Encounter for immunization; S61.211A Laceration without foreign body of left index finger without damage to nail, initial encounter; W45.8XXA Other foreign body or object entering through skin, initial encounter
CPT/HCPCS: 12001; 73140; 90471; 90715; 99284

== ENCOUNTER 2024-02-24 13:22 | Outpatient (OUT) | payer BC, SELFPAY ==
--- NOTE | 2024-02-24 13:25 | MM_ITS ---
Patient Name: MUNIRA CALHOUN MR#: [id number] : 1965 Exam Date: 02/24/2024 Ordering Doctor: DR Noah Swann . RADIOLOGY REPORT PROCEDURE: MM TOMOSYNTHESIS SCREENING BI COMPARISON: MG MAMM SCREEN FAROOQ W CAD, 10/27/2018. MG MAMM SCREEN FAROOQ W CAD, 11/24/2019. INDICATIONS: Screening for malignant neoplasm Calculator Name NCI Breast Cancer Risk Assessment Tool 5 Year Breast Cancer Risk 1.10% Lifetime Breast Cancer Risk 5.80% Personal Breast Cancer No Personal Ovarian Cancer No Treatments None Family Cancers Grandmother-maternal with breast cancer at age 87. LOCATION: [facility] BREAST COMPOSITION: The breasts are extremely dense, which lowers the sensitivity of mammography. FINDINGS: DIAGNOSTIC CATEGORY 2--BENIGN FINDING. NO CHANGE FROM COMPARISON. Scattered benign-appearing nodules are present. Scattered benign-appearing calcifications are present. Scattered benign-appearing lymph nodes are present. RIGHT BREAST: No significant suspicious finding. LEFT BREAST: No significant suspicious finding. RECOMMENDATIONS: ROUTINE MAMMOGRAM AND CLINICAL EVALUATION IN 12 MONTHS. PLEASE NOTE: A NORMAL MAMMOGRAM DOES NOT EXCLUDE THE POSSIBILITY OF BREAST CANCER. A CLINICALLY SUSPICIOUS PALPABLE LUMP SHOULD BE BIOPSIED. Dictated by: Donny Gasca MD on 02/24/2024 at 15:41 Approved by: Donny Gasca MD on 02/24/2024 at 15:43
--- OUTSIDE RECORDS SUMMARY | 2024-02-24 13:37 | XMS_ITS | CCD ---
Author Organization [facility] CliniSytn Care Team Providers Care Anode Rebuilder Name Role Phone Patti Valdez MD Primary Care Provider [phone] Edward ZEPEDA, Reed Unavailable [phone] JOSÉ MIGUEL, DR ARMSTRONG Primary Care Unavailable HOY, DR ARMSTRONG Attending Unavailable HOY, DR ARMSTRONG Admitting Unavailable HOY, DR ARMSTRONG Consulting Unavailable MISC, DR RUFF Admitting Unavailable HOY, DR ARMSTRONG Consulting Unavailable MISC, DR RUFF Attending Unavailable HOY, DR ARMSTRONG Primary Care Unavailable MISC, DR RUFF Consulting Unavailable ZIEBER, DR YENNY Greenberg Consulting Unavailable HOY, DR ARMSTRONG Consulting Unavailable HOY, DR ARMSTRONG Admitting Unavailable HOY, [...] Attending Unavailable HOY, DR ARMSTRONG Consulting Unavailable HOY, DR ARMSTRONG Primary Care Unavailable PANORA, DR AUNDREA Quintero Consulting Unavailable FELIPE STRICKLAND Consulting Unavailable JOSÉ MIGUEL, DR ARMSTRONG Admitting Unavailable HOY, DR ARMSTRONG Attending Unavailable HOY, DR ARMSTRONG Consulting Unavailable HOY, DR ARMSTRONG Primary Care Unavailable AUNDREA GOSS Consulting Unavailable FELIPE STRICKLAND Consulting Unavailable SAHILY, DR ARMSTRONG Admitting Unavailable HOY, DR ARMSTRONG Attending Unavailable HOY, DR ARMSTRONG Primary Care Unavailable Patti Valdez MD Primary Care Provider [phone] Reed Leon MD Unavailable Patti Valdez MD Primary Care Provider [phone] Patti Valdez MD Primary Care Provider [phone] Reed Leon MD Unavailable Patti Valdez MD Primary Care Provider [phone] Johanne SNIDER Attending Unavailable PATTI VALDEZ Primary Care Unavailable Johanne SNIDER Referring Unavailable PATTI VALDEZ Primary Care Unavailable Johanne SNIDER Referring Unavailable Johanne SNIDER Referring Unavailable Johanne SNIDER Attending Unavailable PATTI VALDEZ Primary Care Unavailable Medications Current Medications Medication Drug Class(es) [...] once daily. Take 1 tablet by arlette th once daily. atorvastatin 80 mg oral tablet (20 sources) HMG-CoA Reductase Inhibitor Start: End: 3 take 1 tablet by mouth once daily atorvastatin (LIPITOR) 80 mg tablet Indications: Coronary artery disease involving [place] coronary artery of [place] heart, unspecified whether angina present take 1 tablet by mouth once daily 90 tablet 3 12/01/2021 Active Start: 11-09-2020 End: 11-09-2021 take 1 tablet by mouth once daily atorvastatin (LIPITOR) 80 mg tablet Indications: Coronary artery disease involving [place] coronary artery of [place] heart, unspecified whether angina present Take 1 [...] on above: Take 1 tablet by arlette twice daily with meals. Take 2 tablets by mo uth twice daily with meals. cetirizine hydrochloride 10 mg oral capsule (3 sources) Histamine-1 Receptor Antagonist take 1 capsule by mouth once daily Cetirizine (ZYRTEC) 10 mg cap Take 1 capsule by mouth once daily. 0 Active Comment on above: Take 1 capsule by mo uth once daily. colesevelam hydrochloride 625 mg oral tablet (20 sources) Bile Acid Sequestrant Start: WELCHOL 625 mg tablet 1,875 mg once daily. 0 05/31/2020 Active Comment on above: 1,875 mg once daily. CPAP (20 sources) Start: 1 CPAP Please Expedite for upcoming surgery. Settings 5 - 15 cm H2O, suitable mask per pt preference, chin strap, head gear, humidity, tubing, lifetime supplies. G47.33 RAYMUNDO 1 Each 04/10/2021 Active Start: 04-10-2021 CPAP Please Ex pedite for upcoming surgery. Settings 5 - 15 cm H2O, suitable mask per pt preference, chin strap, head gear, humidity, tubing, lifetime supplies. G47.33 RAYMUNDO 1 Each 04/10/2021 Suspended Comment on above: Please Expedite for upcoming surgery. Settings 5 - 15 cm H2O, suitable mask per pt preference, chin strap, head gear, humidity, tubing, lifetime supplies. G47.33 RAYMUNDO DULoxetine 60 mg delayed release oral capsule (13 sources) Serotonin and Norepinephrine Reuptake Inhibitor Start: 020 End: 022 DULoxetine (CYMBALTA) 60 mg capsule Take 60 mg by mouth once daily. Three times weekly 0 05/04/2020 08/08/2021 Discontinued (Adjust Sig - Block E-Cancel) Comment on above: Take 60 mg by mouth once daily. Three times weekly Take 60 mg by mouth every Saturday,Saturday,Saturday. empagliflozin 25 mg oral tablet (20 sources) Sodium-Glucose Cotransporter 2 Inhibitor Start: End: take 1 tablet by mouth once daily [...] above: Take 1 tablet by arlette th daily with breakfast. 0.4 ml enoxaparin sodium 100 mg/ml prefilled [...] (20 sources) Dietary Cholesterol Absorption Inhibitor Start: End: take 1 tablet by mouth once daily ezetimibe (ZETIA) 10 mg tablet take 1 tablet by mouth once daily 90 tablet 3 02/19/2022 Active Start: 02-16-2021 End: 02-16-2022 take 1 tablet by mouth once daily ezetimibe (ZETIA) 10 mg tablet Take 1 tablet by mouth once daily. 90 tablet 3 02/16/2021 02/16/2022 Active Comment on above: Take 1 tablet by arlette th once daily. take 1 tablet by arlette th once daily 24 hr isosorbide mononitrate 60 mg extended release oral tablet (19 sources) Nitrate Vasodilator End: 09-15-19 take 1 tablet by mouth once daily, then take 1 tablet by mouth every twenty-four hours isosorbide mononitrate ER (IMDUR) 60 mg 24 hr tablet Take 60 mg by mouth once daily. 0 Active Comment on above: Take 60 mg by mouth once daily. multivit-min/iron/foli c acid/K (BARIATRIC MULTIVITAMINS ORAL) (3 sources) Start: 01-13-20 take 1 tablet by mouth once daily multivit-min/iron/fol ic acid/K (BARIATRIC MULTIVITAMINS ORAL) Take 1 tablet by mouth once daily. 0 01/12/2022 Active Comment on above: Take 1 tablet by arlette once daily. oxyCODONE hydrochloride 5 mg oral tablet (1 [...] on above: Take 1 tablet by arlette every 8 hours as needed for pain for up to 3 days. pantoprazole 40 mg delayed release oral tablet (20 sources) Proton Pump Inhibitor Start: 06-24-19 take 1 tablet by mouth once daily pantoprazole DR (PROTONIX) 40 mg tablet Take 1 tablet by mouth once daily. 30 tablet 2 06/24/2020 Active Comment on above: Take 1 tablet by arlette once daily. 125 ml sodium chloride 9 mg/ml prefilled syringe (17 sources) Start: 08-13-19 End: 11-12-19 22 sodium chloride 0.9 % (flush) 10 mL (BD POSIFLUSH) torsemide 20 mg oral tablet (20 sources) Loop Diuretic Start: 09-15-19 End: 09-15-19 23 take 1 tablet by mouth once daily torsemide (DEMADEX) 20 mg tablet Take 1 tablet by mouth once daily. 90 tablet 3 09/14/2021 09/14/2022 Active Comment on above: Take 1 tablet by arlette once daily. vitamin b complex capsule (15 sources) take 1 capsule by mouth once daily vitamin b complex capsule Take 1 capsule by mouth once daily. 0 Active Comment on above: Take 1 capsule by mo [facility] once daily. Completed/Discontinued Medications Medication Drug Class(es) Dates Sig (Normalized) Sig (Original) cholecalciferol 1.25 mg oral capsule (11 sources) Vitamin D Start: 07-17-2020 End: 10-24-2021 take 1 capsule by mouth every week cholecalciferol, Vitamin D3, (VITAMIN D3) 1,250 mcg (50,000 unit) cap capsule Take 1 capsule by mouth one time a week. 12 capsule 0 07/17/2020 10/24/2021 Discontinued Comment on above: Take 1 capsule by [facility] one time a week. clopidogrel 75 mg oral tablet (13 sources) P2Y12 Platelet Inhibitor Start: 10-08-2020 End: 10-26-2021 take 1 tablet by mouth once daily clopidogrel (PLAVIX) 75 mg tablet Take 1 tablet by mouth once daily. 90 tablet 3 10/08/2020 10/26/2021 Discontinued (Discontinued by another Health Care Provider) Comment on above: Take 1 tablet by arlette once daily. FREESTYLE DESIREE 14 DAY SENSOR kit (20 sources) Start: 08-22-2021 FREESTYLE DESIREE 14 DAY SENSOR kit apply [...] Take 1 tablet by arlette once daily. 3 ml insulin glargine 100 [...] pen injector (20 sources) Insulin Analog Start: 10-26-19 HUMALOG KWIKPEN INSULIN 100 unit/mL Inject 4 Units subcutaneously as directed. 0 10/25/2020 Active Comment on above: Inject 4 Units subcu taneously as directed. losartan potassium 50 mg oral tablet (1 source) Angiotensin 2 Receptor Josue Start: 06-02-19 End: 08-08-19 losartan (COZAAR) 50 mg tablet once daily. 0 06/02/2013 08/07/2021 Discontinued Comment on above: once daily. ondansetron 4 mg oral tablet (9 sources) Serotonin-3 Receptor Antagonist Start: 11-14-19 take 1 tablet by mouth every eight hours as needed ondansetron (ZOFRAN) 4 mg tablet Take 1 tablet by mouth every 8 hours as needed for nausea/vomiting. 10 tablet 1 11/13/2021 Active Comment on above: Take 1 tablet by arlette th every 8 hours as needed for nausea/vomiting. potassium chloride 10 meq extended release oral tablet (16 sources) Start: 10-14-19 take 1 tablet by mouth twice daily potassium chloride (K-TAB) 10 mEq tablet Take 10 mEq by mouth twice daily. 0 10/13/2021 Active Comment on above: Take 10 mEq by mouth twice daily. sacubitril 24 mg / valsartan 26 mg oral tablet (20 sources) Angiotensin 2 Receptor Josue Start: 09-15-19 End: 11-11-19 take 1 tablet by mouth twice daily sacubitril-valsartan (ENTRESTO) 24-26 mg tablet Take 1 tablet by mouth twice daily. 180 tablet 3 12/26/2022 11/11/2023 Discontinued Comment on above: Take 1 tablet by arlette th twice daily. SUMAtriptan 100 mg oral tablet (20 sources) Serotonin-1b and Serotonin-1d Receptor Agonist Start: 05-02-20 End: 06-18-19 take 1 tablet by mouth every two hours SUMAtriptan (IMITREX) 100 mg tablet take 1 tablet by mouth AT ONSET OF HEADACHE may repeat in 2 hours... (REFER TO PRESCRIPTION NOTES). 0 05/02/2020 06/18/2023 Discontinued (Course of therapy completed) Comment on above: take 1 tablet by arlette th AT ONSET OF HEADACHE may repeat in 2 hours... (REFER TO PRESCRIPTION NOTES). topiramate 100 mg oral tablet (1 source) Start: 03-29-20 End: 08-08-19 take 100 mg by mouth once daily topiramate (TOPAMAX ORAL) Take 100 mg by mouth once daily. 0 03/29/2010 08/07/2021 Discontinued Comment on above: Take 100 mg by mouth once daily. traMADol hydrochloride 50 mg oral tablet (3 sources) Opioid Agonist Start: 11-10-19 End: 06-18-19 take 1 tablet by mouth every eight hours as needed traMADol (ULTRAM) 50 mg tablet Take 50 mg by mouth three times daily as needed. 0 11/09/2022 06/18/2023 Discontinued (Course of therapy completed) Comment on above: Take 50 mg by mouth three times daily as needed. Problems Active Problems Problem Classification Problem Date Documented Da te Episodic/Chronic Administrative/social admission (5 sources) Patient encounter status; [...] Coronary atherosclerosis; Translations: [Atherosclerotic heart disease of [place] coronary artery without angina pectoris] Onset: 1 [...] Chronic Other nutritional; endocrine; and metabolic disorders (13 sources) Obesity; Translations: [Obesity, unspecified] Onset: 2 [...] Documented Da te Episodic/Chronic Acute myocardial infarction (4 sources) Myocardial infarction; Translations: [Non-ST elevation (NSTEMI) myocardial infarction] Onset: 07-31-2021 Resolved: 08-12-2021 08-07-2021 Chronic Coronary atherosclerosis and other heart disease (2 sources) Presence of coronary angioplasty implant and graft; Translations: [PRESENCE COR ANGPLSTY IMPLANT AND GRAFT] Onset: 10-06-2020 Episodic Fluid and electrolyte disorders (1 source) Hypokalemia; Translations: [HYPOKALEMIA] Onset: 09-22-2021 Episodic Nonspecific chest pain (4 sources) Chest pain, unspecified; Translations: [CHEST PAIN UNSPECIFIED] Onset: 09-19-2021 Episodic Other aftercare (1 source) Other military education coordinator (current) drug therapy; Translations: [OTH HEAD STOCK TRANSFER CLERK CURRENT DRUG THERAPY] Onset: 09-22-2021 Episodic Other aftercare (1 source) senior care (current) use of antithrombotics/anti platelets; Translations: [HEAD STOCK TRANSFER CLERK ANTITHROMBOT/ANTIPLA TLETS] Onset: 09-22-2021 Episodic Other aftercare (1 source) instructional technologist (current) use of aspirin; Translations: [HEAD STOCK TRANSFER CLERK CURRENT USE OF ASPIRIN] Onset: 09-22-2021 Episodic Other aftercare (2 sources) instructional technologist (current) use of insulin; Translations: [HEAD STOCK TRANSFER CLERK CURRENT USE OF INSULIN] Onset: 09-22-2021 Episodic [...] Test Name Value Interpretation Reference Range Facility CNNURSEon 06-18-2023 CNNURSE Nurse Visit (MILLI Anderson MAI) ANGIE SERRA ([id number]) 1965 [place] Date Time Provider Department 06/18/23 [facility] During your visit today, we recorded the following information about you: Priscilla Chung 10/14/2023 11:54 AM Signed DATE: June 18, 2023 PT. NAME: Angie Serra [facility]#: [id number] IRB # [id number] PROTOCOL: Novel Clinical Utility of Retinal Imaging in Patients with Heart Failure: A Fisher Study Visit: BASELINE 1. Pipeline Gang Supervisor and/or Research Nurse explained the protocol to the subject and family? Yes 2. Risks, benefits, alternative procedures explained? Yes 3. Reviewed HIPPA disclosure information with the subject? Yes 4. Follow-up requirements explained? Yes 5. Reviewed research related injuries and cost with subject? Yes 6. Subject asked appropriate questions and answers provided to the subject? Yes 7. Subject read and verbally understands informed consent? Yes 8. Subject was given a copy of the signed informed consent? Yes 9. Family present at the time of the consent: subject and spouse Consent signed date/time @ 11a 6 Minute Walk Test completed? Yes Distance Traveled: 1415 ft OCTA Imaging completed? Yes - pre and [id number] Urine Sample obtained? Yes Time: 1145a Blood draw complete according to protocol? Yes Time: 105p Butterfly used in Right antecubital area. Blood drawn with vacutainer and labs drawn per protocol. Butterfly removed after blood draw and secured with sterile gauze. Patient tolerated procedure well. Vital signs can be found in nurses note. Robby MS Priscilla4 Allergies As of Date: 06/18/2023 (No Known Allergies) Date Reviewed: 06/18/2023 Reviewed by: Johanne Snider MD - Fully Assessed Reason for Visit: Research [[id number]] Primary Visit Diagnosis:Research subject [Z00.6] Prescriptions as of 10/14/2023 - Cetirizine (ZYRTEC) 10 mg cap Take 1 capsule by mouth once daily. - multivit-min/iron/foli c acid/K (BARIATRIC MULTIVITAMINS ORAL) Take 1 tablet by mouth once daily. - aspirin, enteric coated (ASPIR-81) 81 mg EC tablet Take 1 tablet by mouth once daily. - sacubitril-valsartan (ENTRESTO) 24-26 mg tablet Take 1 tablet by mouth twice daily. - carvedilol (COREG) 12.5 mg tablet Take 1 tablet by mouth twice daily with meals. - ezetimibe (ZETIA) 10 mg tablet take 1 tablet by mouth once daily - atorvastatin (LIPITOR) 80 mg tablet take 1 tablet by mouth once daily - isosorbide mononitrate ER (IMDUR) 60 mg 24 hr tablet Take 60 mg by mouth once daily. - vitamin b complex capsule Take 1 capsule by mouth once daily. - empagliflozin (JARDIANCE) 25 mg tablet Take 1 tablet by mouth daily with breakfast. - CPAP Please Expedite for upcoming surgery. Settings 5 - 15 cm H2O, suitable mask per pt preference, chin strap, head gear, humidity, tubing, lifetime supplies. G47.33 RAYMUNDO - pantoprazole DR (PROTONIX) 40 mg tablet Take 1 tablet by mouth once daily. - WELCHOL 625 mg tablet 1,875 mg once daily. Problem List As Of Date 06/18/2023 Noted Resolved Type 2 diabetes mellitus with hyperglycemia, wi*06/02/2001 Primary hypertension [I10] 06/02/2004 Migraine [G43.909] 01/22/2010 Obesity, Class III, BMI >= 40 [E66.01] 08/12/2020 Morbid obesity (HCC) [E66.01] 08/25/2020 Mixed hyperlipidemia [E78.2] 08/25/2020 Gastroesophageal reflux disease without esophag*08/25/2020 Diabetes mellitus type 2 in obese (HCC) [E11.69*08/25/2020 Coronary artery disease involving [place]*10/06/2020 S/P drug eluting coronary stent placement [Z95.*10/06/2020 RAYMUNDO (obstructive sleep apnea) [G47.33] 04/10/2021 NSTEMI (non-ST elevated myocardial infarction) *08/07/2021 08/12/2021 Acute on chronic heart failure with preserved e*09/14/2021 Heart failure with preserved ejection fraction *10/26/2021 Type 2 diabetes mellitus with morbid obesity (H*11/13/2021 Obesity [E66.9] 11/14/2021 Encounter Status:Closed by CHUNG WELLS on 10/14/[address] [facility] CNOVon 06-18-2023 CNOV Office Visit (MILLI CROW MAI) ANGIE SERRA ([id number]) 1965 [address] [place] [facility] Date Time Provider Department 06/18/23 10:45 AM Johanne SNIDER [facility] During your visit today, we recorded the following information about you: Pulse Blood pressure Weight Height 82/minute 102/63 77.2 kg 1.651 m Johanne Snider MD 07/18/2023 12:15 AM Signed HIRAM AND ROLY MIGUEL [facility] Nataly Watt Department of Cardiovascular Medicine [facility] Treatment [facility] Recovery Section of Heart Failure and Transplantation Medicine PATIENT Angie Serra [address] [id number] [facility] PRIMARY CARE PROVIDER Patti Valdez MD [address] [place] [address] REFERRING PROVIDER Michael Maciel [address] [facility] [id number] CHIEF COMPLAINT HFpEF HISTORY OF PRESENT ILLNESS Angie Serra is a pleasant 57 year old White female who comes to [facility] for evaluation and management of Consult. The patient has been referred by Michael Maciel MD; a copy of this note will be provided by way of shared medical record and/or via regular mail. The date of his first clinic visit with wi is September 14, 2021. In summary, Angie Pocock is a 56 y/o female from [place], [place] following up after hospitalization. Pt has [...] INTERVAL HISTORY Last visit's recommendations were: Will resume Aspirin 81 mg daily (enteric coated); she will derive life expectancy benefit with this medication given her coronary artery disease. Continue to follow all other prescribed medical therapies and recommendations. Return to clinic in 6 months for follow up with a metabolic exercise test. Since last's visit, the patient has been feeling very well. S/p bariatric surgery, weight has stabilized. On isosorbide, no longer having angina. No volume retention; improved MCCAIN. Improved BP control. Home SBP 110 - 130 mmHg, never gets below 90 mmHg. Home HR ranges 70 - 80 bpm, never falls below 60 bpm. Tolerating enteric-coated aspirin. Metabolic exercise stress test reviewed below. REVIEW OF SYSTEMS CONSTITUTIONAL: No unintentional weight [...] Hyperglycemia, With Long-Term Current Use of Insulin ([facility]) Primary Hypertension Migraine Obesity, Class III, BMI >= 40 Morbid Obesity (Hcc) Mixed Hyperlipidemia Gastroesophageal Reflux Disease Without Esophagitis Diabetes Mellitus Type 2 in Obese Coronary Artery Disease Involving [place] Coronary Artery of [place] Heart S/P Drug Eluting Coronary Stent Placement Raymundo (Obstructive Sleep Apnea) Acute On Chronic Heart Failure With Preserved Ejection Fraction (Hcc) Heart Failure With Preserved Ejection Fraction (Hcc) Type 2 Diabetes Mellitus With Morbid Obesity ([facility]) Obesity CURRENT MEDICATIONS Cetirizine (ZYRTEC) 10 mg cap Take 1 capsule by mouth once daily. multivit-min/iron/foli c acid/K (BARIATRIC MULTIVITAMINS ORAL) Take 1 tablet by mouth once daily. aspirin, enteric coated (ASPIR-81) 81 mg EC tablet Take 1 tablet by mouth once daily. sacubitril-valsartan (ENTRESTO) 24-26 mg tablet Take 1 tablet by mouth twice daily (more content not included)... Normal [facility] EXERCISE STRESS ECG METABOLI C (WITHOUT IMAGING)on 06-18-2023 EXERCISE STRESS ECG METABOLIC (WITHOUT IMAGING) Stress ECG Report: Exercise Stress ECG Metabolic (without Imaging) [address] [place] [address] Date of service: 06/18/2023 8:38:16 AM MANAGER Ordering physician: Johanne SNIDER data specialist: Darshan Hidalgo Emergency Department Coordinator: Lorraine Wakefield Interpreting physician: Jason Rankin MD [...] ECG: Normal Sinus Rhythm and Inferior Wall [place] Exercise Protocol: cycle Cycle Exercise Table: +------+----+-----+--- [...] / 80 mmHg Rate Pressure Product (RPP): 07996 Metabolic Exercise Data Variable: Observed value [Expected [...] (VE/VCO2 slo (more content not included)... Normal [facility] CNOVon 12-14-2022 CNOV Office Visit (MILLI CROW MAI) ANGIE SERRA ([id number]) 1965 [place] Date Time Provider Department 12/14/22 8:15 AM Johanne SNIDER CARD CHF BRIAN During your visit today, we recorded the following information about you: Pulse Respiration Blood pressure Height 73/minute 15/minute 101/55 1.651 Johanne García MD 12/14/2022 5:07 PM Signed HIRAM AND ROLY MIGUEL [facility] Nataly Watt Department of Cardiovascular Medicine [facility] Recovery Section of Heart Failure and Transplantation Medicine PATIENT Angie Serra [address] [id number] [facility] PRIMARY CARE PROVIDER Patti Valdez MD [address] [place] [address] REFERRING PROVIDER Michael Maciel [address] [facility] [address] CHIEF COMPLAINT Consult HISTORY OF PRESENT ILLNESS Angie Serra is a pleasant 56 year old White female who comes to [facility] for evaluation and management of Consult. The patient has been referred by Michael Maciel MD; a copy of this note will be provided by way of shared medical record and/or via regular mail. The date of his first clinic visit with wi is September 14, 2021. In summary, Angie Serra is a 56 y/o female from [place], [place] following up after hospitalization. Pt has [...] Esophagitis Diabetes Mellitus Type 2 in Obese ([facility]) Coronary Artery Disease Involving [place] Coronary Artery of [place] Heart S/P Drug Eluting Coronary Stent Placement [...] mg table (more content not included)... Normal [facility] INSULINon 12-16-2021 Insulin 4.7 uIU/mL Normal 2.6-24.[address] [facility] Comment on above: Performed By: #### C VDTBH #### [facility] [address] [address] [address] Argelia Baird VIT D 25-OH LABCORPon 2021 Vitamin D, 25-Hydroxy 30.5 ng/mL Normal 30.0-100.0 [facility] Comment on above: Result Comment: Erum min D deficiency has been defined by the [place] of [employer] and an Endocrine Society practice guideline as a level of serum 25-OH vitamin D less than 20 ng/mL (1,2). The Endocrine Society went on to further define vitamin D insufficiency as a level between 21 and 29 ng/mL (2). 1. IOM ([place] of [employer]). 2010. Dietary reference intakes for calcium and D. Renae [place]: The National Academies Press. 2. Maicol MF, Kamila NC, Nancie JAMES, et al. Evaluation, treatment, and prevention of vitamin D deficiency: an Endocrine Society clinical practice guideline. JCEM. 2010; 96(7):1911-30. Performed By: #### C MREP #### [facility] [address] [address] [address] Argelia Baird CBC AUTO DIFFon 12-15-2021 BASO # 0.0 103/ul Normal 0.0-0.[address] [facility] Comment on above: Performed By: #### B SPEED BELT SANDER, CMP #### [facility] [address] [address] [address] Argelia Baird Basophils/100 WBC (Bld) 0.5 % Normal 0.2-2.[address] [facility] Comment on above: Performed By: #### B SPEED BELT SANDER, CMP #### [facility] [address] [place] [address] Dr. Argelia Barid EO # 0.3 103/ul Normal 0.0-0.7 [facility] Comment on above: Performed By: #### B SPEED BELT SANDER, CMP #### [facility] [address] [place] [address] Dr. Argelia Baird Eosinophils/100 WBC (Bld) 5.0 % Normal 0.9-7.0 [facility] Comment on above: Performed By: #### B SPEED BELT SANDER, CMP #### [facility] [address] [place] [address] Dr. Argelia Baird Erythrocyte distribution width (RBC) [Ratio] 20.3 % Critically high 11.0-15.0 [facility] Comment on above: Performed By: #### B SPEED BELT SANDER, CMP #### [facility] [address] [place] [address] Dr. Argelia Baird Hematocrit (Bld) [Volume fraction] 40.4 % Normal 36.0-48.0 [facility] Comment on above: Performed By: #### B SPEED BELT SANDER, CMP #### [facility] [address] [place] [address] Dr. Argelia Baird Hemoglobin (Bld) [Mass/Vol] 13.0 g/dL Normal 12.0-16.0 [facility] Comment on above: Performed By: #### B SPEED BELT SANDER, CMP #### [facility] [address] [place] [address] Dr. Argelia Baird IG # 0.02 10e3/ul Normal 0.00-0.03 [facility] Comment on above: Performed By: #### B SPEED BELT SANDER, CMP #### [facility] [address] [place] [address] Dr. Argelia Baird IG % 0.4 % Normal 0.0-0.5 [facility] Comment on above: Performed By: #### B SPEED BELT SANDER, CMP #### [facility] [address] [place] [address] Dr. Argelia Baird LYMPH # 1.3 103/ul Normal 1.2-3.8 [facility] Comment on above: Performed By: #### B SPEED BELT SANDER, CMP #### [facility] [address] [place] [address] Dr. Argelia Baird Lymphocytes/100 WBC (Bld) 23.6 % Normal 20.5-60.[address] [facility] Comment on above: Performed By: #### B SPEED BELT SANDER, CMP #### [facility] [address] [place] [address] Dr. Argelia Baird MANUAL DIFF REQ NO Normal [facility] Comment on above: Performed By: #### B SPEED BELT SANDER, CMP #### [facility] [address] [place] [address] Dr. Argelia Baird MCH (RBC) [Entitic mass] 29.0 pg Normal 26.7-34.0 [facility] Comment on above: Performed By: #### B SPEED BELT SANDER, CMP #### [facility] [address] [place] [address] Dr. Argelia Baird MCHC (RBC) [Mass/Vol] 32.2 g/dL Normal 29.9-35.2 [facility] Comment on above: Performed By: #### B SPEED BELT SANDER, CMP #### [facility] [address] [place] [address] Dr. Argelia Baird MCV (RBC) [Entitic vol] 90.2 fL Normal 81.0-99.[address] [facility] Comment on above: Performed By: #### B SPEED BELT SANDER, CMP #### [facility] [address] [place] [address] Dr. Argelia Baird MONO # 0.9 103/ul Critically high 0.3-0.8 [facility] Comment on above: Performed By: #### B SPEED BELT SANDER, CMP #### [facility] [address] [place] [address] Dr. Argelia Baird Monocytes/100 WBC (Bld) 16.1 % Critically high 1.7-12.0 [facility] Comment on above: Performed By: #### B SPEED BELT SANDER, CMP #### [facility] [address] [place] [address] Dr. Argelia Baird NEUT # 3.1 103/ul Normal 1.4-6.5 [facility] Comment on above: Performed By: #### B SPEED BELT SANDER, CMP #### [facility] [address] [place] [address] Dr. rAgelia Baird Neutrophils/100 WBC (Bld) 54.4 % Normal 43.0-75.[address] [facility] Comment on above: Performed By: #### B SPEED BELT SANDER, CMP #### [facility] [address] [place] [address] Dr. Argelia Baird Platelet mean volume (Bld) [Entitic vol] 9.7 fL Normal 9.5-13.[address] [facility] Comment on above: Performed By: #### B SPEED BELT SANDER, CMP #### [facility] [address] [place] [address] Dr. Argelia Baird PLT 283 103/ul Normal 150-[address] [facility] Comment on above: Performed By: #### B SPEED BELT SANDER, CMP #### [facility] [address] [place] [address] Dr. Argelia Baird RBC 4.48 106/ul Normal 4.20-5.[address] [facility] Comment on above: Performed By: #### B SPEED BELT SANDER, CMP #### [facility] [address] [place] [address] Dr. Argelia Baird WBC 5.6 103/ul Normal 4.0-11.[address] [facility] Comment on above: Performed By: #### B SPEED BELT SANDER, CMP #### [facility] [address] [place] [address] Dr. Argelia Baird FREE THYROXINE INDEX T7on FTI 2.48 Normal 1.30-4.50 [facility] Comment on above: Performed By: #### C VDTBH #### [facility] [address] [place] [address] Dr. Argelia Baird T3U 33.0 % Normal 30.0-39.[address] [facility] Comment on above: Performed By: #### C VDTBH #### [facility] [address] [place] [address] Dr. Argelia Baird T4 [Mass/Vol] 7.50 ug/dL Normal 4.80-13.90 [facility] Comment on above: Performed By: #### C VDTBH #### [facility] [address] [address] [address] Argelia Baird GLYCOHEMOGLOBIN A1Con 2021 ADA RECOMMENDATION SEE BELOW Normal [facility] Comment on above: Result Comment: ADA RECOMMENDED LIMIT 4.0 - 6.0 ADA THERAPEUTIC TARGET < 7.0 ACTION SUGGESTED > 7.0 Performed By: #### A 1C #### [facility] [address] [address] [address] Argelia Baird Glucose [Mass/Vol] 148 mg/dL Normal [facility] Comment on above: Performed By: #### A 1C #### [facility] [address] [place] [address] Dr. Argelia aBird HbA1c (Bld) [Mass fraction] 6.8 % Critically high 4.5-6.[address] [facility] Comment on above: Performed By: #### A 1C #### [facility] [address] [place] [address] Dr. Argelia Baird IRONon 12-15-2021 Iron [Mass/Vol] 51.0 ug/dL Normal 50.0-170.0 [facility] Comment on above: Performed By: #### C VDTBH #### [facility] [address] [place] [address] Dr. Argelia Baird LIPID PROFILEon 12-15-2021 CHOL-HDL RATIO NORM SEE BELOW Normal [facility] Comment on above: Result Comment: 3.3 - 4.4 LOW RISK 4.4 - 7.1 AVERAGE RISK 7.1 - 11.0 MODERATE RISK >11.0 HIGH RISK Performed By: #### C VDTBH #### [facility] [address] [place] [address] Dr. Argelia Baird Cholesterol [Mass/Vol] 83 mg/dL Normal <=[address] [facility] Comment on above: Performed By: #### C VDTBH #### [facility] [address] [place] [address] Dr. Argelia Baird Cholesterol in HDL [Mass/Vol] 34 mg/dL Critically low 40-[address] [facility] Comment on above: Performed By: #### C VDTBH #### [facility] [address] [address] [address] Argelia Baird Cholesterol in LDL [Mass/Vol] 15.8 mg/dL Normal [facility] Comment on above: Performed By: #### C VDTBH #### [facility] [address] [place] [address] Dr. Argelia Baird Cholesterol.total/Ch olesterol in HDL [Mass ratio] 2.4 {ratio} Normal [facility] Comment on above: Performed By: #### C VDTBH #### [facility] [address] [place] [address] Dr. Argelia Baird HDL NORMAL > or = 60 mg/dl - LO W CARDIOVASCULAR RISK <40 mg/dl - HIGH CARDIOVASCULAR RISK Normal [facility] Comment on above: Performed By: #### C VDTBH #### [facility] [address] [place] [address] Dr. Argelia Baird LDL CALC NORMAL SEE BELOW Normal [facility] Comment on above: Result Comment: <100 mg/dl OPTIMAL 100 - 129 mg/dl NEAR OR ABOVE OPTIMAL 130 - 159 mg/dl BORDERLINE HIGH 160 - 189 mg/dl HIGH >190 mg/dl VERY HIGH Performed By: #### C VDTBH #### [facility] [address] [place] [address] Dr. Argelia Baird Triglyceride [Mass/Vol] 166 mg/dL Critically high <=[address] [facility] Comment on above: Performed By: #### C VDTBH #### [facility] [address] [place] [address] Dr. Argelia Baird VLDL CALC 33.2 mg/dL Normal [facility] Comment on above: Performed By: #### C VDTBH #### [facility] [address] [place] [address] Dr. Argelia Baird PROF 14(COMP METB)on 022 Albumin [Mass/Vol] 3.0 g/dL Critically low 3.4-5.0 Th [facility] Comment on above: Performed By: #### C VDTBH #### [facility] [address] [place] [address] Dr. Argelia Baird Albumin/Globulin [Mass ratio] 1.0 {ratio} Normal [facility] Comment on above: Performed By: #### C VDTBH #### [facility] [address] [place] [address] Dr. Argelia Baird ALP [Catalytic activity/Vol] 100 U/L Normal 46-[address] [facility] Comment on above: Performed By: #### C VDTBH #### [facility] [address] [place] [address] Dr. Argelia Baird ALT [Catalytic activity/Vol] 42 U/L Normal 14-[address] [facility] Comment on above: Performed By: #### C VDTBH #### [facility] [address] [place] [address] Dr. Argelia Baird Anion gap [Moles/Vol] 14.1 mmol/L Normal [facility] Comment on above: Performed By: #### C VDTBH #### [facility] [address] [place] [address] Dr. Argelia Baird AST [Catalytic activity/Vol] 36 U/L Normal 15-[address] [facility] Comment on above: Performed By: #### C VDTBH #### [facility] [address] [place] [address] Dr. Argelia Baird Bilirubin [Mass/Vol] 0.4 mg/dL Normal 0.2-1.[address] [facility] Comment on above: Performed By: #### C VDTBH #### [facility] [address] [place] [address] Dr. Argelia Baird Calcium [Mass/Vol] 8.1 mg/dL Critically low 8.5-10.1 Th [facility] Comment on above: Performed By: #### C VDTBH #### [facility] [address] [place] [address] Dr. Argelia Baird Chloride [Moles/Vol] 111 mmol/L Critically high 98-[address] [facility] Comment on above: Performed By: #### C VDTBH #### [facility] [address] [place], [place] [address] Dr. Argelia Baird CO2 [Moles/Vol] 24.4 mmol/L Normal 21.0-32.0 [facility] Comment on above: Performed By: #### C VDTBH #### [facility] [address] [place] [address] Dr. Argelia Baird Creatinine [Mass/Vol] 0.75 mg/dL Normal 0.55-1.[address] [facility] Comment on above: Performed By: #### C VDTBH #### [facility] [address] [place] [address] Dr. Argelia Baird EGFR-AF GABONESE >60 Normal >=60 [facility] Comment on above: Performed By: #### C VDTBH #### [facility] [address] [place] [address] Dr. Argelia Baird EGFR-NON AF GABONESE >60 Normal >=[address] [facility] Comment on above: Performed By: #### C VDTBH #### [facility] [address] [place] [address] Dr. Argelia Baird Globulin (S) [Mass/Vol] 3.0 g/dL Normal [facility] Comment on above: Performed By: #### C VDTBH #### [facility] [address] [place] [address] Dr. Argelia Baird Glucose [Mass/Vol] 128 mg/dL Critically high 74-106 T [facility] Comment on above: Performed By: #### C VDTBH #### [facility] [address] [place] [address] Dr. Argelia Baird Potassium [Moles/Vol] 3.5 mmol/L Normal 3.5-5.[address] [facility] Comment on above: Performed By: #### C VDTBH #### [facility] [address] [place] [address] Dr. Agrelia Baird Protein [Mass/Vol] 6.0 g/dL Critically low 6.4-8.2 Th [facility] Comment on above: Performed By: #### C VDTBH #### [facility] [address] [place] [address] Dr. Argelia Baird Sodium [Moles/Vol] 146 mmol/L Critically high 136-145 [facility] Comment on above: Performed By: #### C VDTBH #### [facility] [address] [place] [address] Dr. Argelia Baird Urea nitrogen [Mass/Vol] 16.0 mg/dL Normal 7.0-18.[address] [facility] Comment on above: Performed By: #### C VDTBH #### [facility] [address] [place] [address] Dr. Argelia Baird Urea nitrogen/Creatinine [Mass ratio] 21.3 mg/mg Normal [facility] Comment on above: Performed By: #### C VDTBH #### [facility] [address] [place] [address] Dr. Argelia Baird TSHon 12-15-2021 TSH 1.803 uIU/mL Normal 0.358-3.740 [facility] Comment on above: Performed By: #### C VDTBH #### [facility] [address] [place] [address] Dr. Argelia Baird VIT B12 AND FOLATEon 022 Cobalamin (Vitamin B12) [Mass/Vol] 834.0 pg/mL Normal 193.0-986.[address] [facility] Comment on above: Performed By: #### C VDTBH #### [facility] [address] [place] [address] Dr. Argelia Baird FOLATE 20.80 ng/mL Normal 8.60-58.[address] [facility] Comment on above: Performed By: #### C VDTBH #### [facility] [address] [place] [address] Dr. Argelia Baird 25(OH)D3 [facility] 25-hydroxyvitamin D3 [Mass/Vol] 40.1 ng/mL Normal 31.0-80.0 [facility] Comment on above: Order Comment: Speci men Type: BLOOD SPECIMEN Ordering Facility: [facility] Address: [address] [place] [id number] Result Comment: Clas sification of 25 [place] Vitamin D status: Deficiency/Insufficiency: < or = 30 ng/ml. Sufficiency/Optimal Levels: 31-80 ng/mL Toxicity: > 100 ng/mL. Test performed by chemiluminescent immunoassay. Performed By: #### 1 989-3 #### [facility] CLIA [id number] [address] [facility] [address] [place] CBC W Auto Differential pane l (Bld)on 11-13-2021 Basophils (Bld) [#/Vol] 0.04 10*3/uL Normal <0.11 [facility] Comment on above: Order Comment: Speci men Type: BLOOD SPECIMEN Ordering Facility: [facility] Address: [address] [place] [address] Performed By: #### 5 7021-8 #### [facility] CLIA [id number] [address] [place] [address] [place] Basophils/100 WBC (Bld) 0.5 % Normal [facility] Comment on above: Order Comment: Speci men Type: BLOOD SPECIMEN Ordering Facility: [facility] Address: [address] [place] [address] Performed By: #### 5 7021-8 #### [facility] [place] [id number] [address] [place] [address] Differential cell count method Nom (Bld) Auto Normal [facility] Comment on above: Order Comment: Speci men Type: BLOOD SPECIMEN Ordering Facility: [facility] Address: [address] Performed By: #### 5 7021-8 #### [facility] CLIA [id number] [address] [place] [address] [place] Eosinophils (Bld) [#/Vol] 0.31 10*3/uL Normal <0.46 [facility] Comment on above: Order Comment: Speci men Type: BLOOD SPECIMEN Ordering Facility: [facility] Address: [address] [place], [place] [id number] Performed By: #### 5 7021-8 #### [facility] CLIA [id number] [address] [place] [address] [place] Eosinophils/100 WBC (Bld) 3.8 % Normal [facility] Comment on above: Order Comment: Speci men Type: BLOOD SPECIMEN Ordering Facility: [facility] Address: [address] [place] [address] Performed By: #### 5 7021-8 #### [facility] CLIA [id number] [address] [place] [address] [place] Erythrocyte distribution width (RBC) [Ratio] 15.2 % High 11.5-15.0 [facility] Comment on above: Order Comment: Speci men Type: BLOOD SPECIMEN Ordering Facility: [facility] Address: [address] [place] [address] Performed By: #### 5 7021-8 #### [facility] [place] [id number] [address] [place] [address] [place] Hematocrit (Bld) [Volume fraction] 43.1 % Normal 36.0-46.0 [facility] Comment on above: Order Comment: Speci men Type: BLOOD SPECIMEN Ordering Facility: [facility] Address: [address] [place] [address] Performed By: #### 5 7021-8 #### [facility] CLIA [id number] [address] [place] [address] [place] Hemoglobin (Bld) [Mass/Vol] 13.6 g/dL Normal 11.5-15.5 [facility] Comment on above: Order Comment: Speci men Type: BLOOD SPECIMEN Ordering Facility: [facility] Address: [address] [place] [address] Performed By: #### 5 7021-8 #### [facility] CLIA [id number] [address] [place] [address] [place] IMMATURE GRAN % 0.4 % Normal [facility] Comment on above: Order Comment: Speci men Type: BLOOD SPECIMEN Ordering Facility: [facility] Address: [address] [place] [address] Performed By: #### 5 7021-8 #### [facility] CLIA [id number] [address] [place] [address] [place] [facility] IMMATURE GRAN ABS 0.03 k/uL Normal <0.10 [facility] Comment on above: Order Comment: Speci men Type: BLOOD SPECIMEN Ordering Facility: [facility] Address: [address] [place] [address] Performed By: #### 5 7021-8 #### [facility] CLIA [id number] [address] [place] [address] [place] Lymphocytes (Bld) [#/Vol] 1.11 10*3/uL Normal 1.00-4.00 [facility] Comment on above: Order Comment: Speci men Type: BLOOD SPECIMEN Ordering Facility: [facility] Address: [address] [place] [address] Performed By: #### 5 7021-8 #### [facility] [place] [id number] [address] [place] [address] [place] Lymphocytes/100 WBC (Bld) 13.7 % Normal [facility] Comment on above: Order Comment: Speci men Type: BLOOD SPECIMEN Ordering Facility: [facility] Address: [address] [place] [address] Performed By: #### 5 7021-8 #### [facility] CLIA [id number] [address] [place] [address] [place] MCH (RBC) [Entitic mass] 28.4 pg Normal 26.0-34.0 [facility] Comment on above: Order Comment: Speci men Type: BLOOD SPECIMEN Ordering Facility: [facility] Address: [address] [place], [place] [address] Performed By: #### 5 7021-8 #### [facility] CLIA [id number] [address] [place], [place] [address] [place] MCHC (RBC) [Mass/Vol] 31.6 g/dL Normal 30.5-36.0 [facility] Comment on above: Order Comment: Speci men Type: BLOOD SPECIMEN Ordering Facility: [facility] Address: [address] [place] [address] Performed By: #### 5 7021-8 #### [facility] [place] [id number] [address] [place] [address] [place] MCV (RBC) [Entitic vol] 90.0 fL Normal 80.0-100.0 [facility] Comment on above: Order Comment: Speci men Type: BLOOD SPECIMEN Ordering Facility: [facility] Address: [address] [place] [address] Performed By: #### 5 7021-8 #### [facility] [place] [id number] [address] [place] [address] [place] Monocytes (Bld) [#/Vol] 0.63 10*3/uL Normal <0.87 [facility] Comment on above: Order Comment: Speci men Type: BLOOD SPECIMEN Ordering Facility: [facility] Address: [address] [place] [address] Performed By: #### 5 7021-8 #### [facility] [place] [id number] [address] [place], [place] [address] [facility] [place] Monocytes/100 WBC (Bld) 7.7 % Normal [facility] Comment on above: Order Comment: Speci men Type: BLOOD SPECIMEN Ordering Facility: [facility] Address: [address] [place] [address] Performed By: #### 5 7021-8 #### [facility] [place] [id number] [address] [place] [address] [place] Neutrophils (Bld) [#/Vol] 6.01 10*3/uL Normal 1.45-7.50 [facility] Comment on above: Order Comment: Speci men Type: BLOOD SPECIMEN Ordering Facility: [facility] Address: [address] [place], [place] [address] Performed By: #### 5 7021-8 #### [facility] CLIA [id number] [address] [place] [address] [place] Neutrophils/100 WBC (Bld) 73.9 % Normal [facility] Comment on above: Order Comment: Speci men Type: BLOOD SPECIMEN Ordering Facility: [facility] Address: [address] [place], [place] [address] Performed By: #### 5 7021-8 #### [facility] [place] [id number] [address] [place] [address] [place] Nucleated RBC (Bld) [#/Vol] 10*3/uL Normal <0.01 [facility] Comment on above: Order Comment: Speci men Type: BLOOD SPECIMEN Ordering Facility: [facility] Address: [address] [place] [address] Performed By: #### 5 7021-8 #### [facility] [place] [id number] [address] [place] [address] [place] Nucleated RBC/100 WBC (Bld) [Ratio] 0.0 /100 WBC Normal [facility] Comment on above: Order Comment: Speci men Type: BLOOD SPECIMEN Ordering Facility: [facility] Address: [address] [place], [place] [address] Performed By: #### 5 7021-8 #### [facility] CLIA [id number] [address] [place], [place] [address] [place] Platelet mean volume (Bld) [Entitic vol] 8.6 fL Low 9.0-12.7 [facility] Comment on above: Order Comment: Speci men Type: BLOOD SPECIMEN Ordering Facility: [facility] Address: [address] [place], [place] [address] Performed By: #### 5 7021-8 #### [facility] CLIA [id number] [address] [place], [place] [id number] [facility] Platelets (Bld) [#/Vol] 320 10*3/uL Normal 150-400 [facility] Comment on above: Order Comment: Speci men Type: BLOOD SPECIMEN Ordering Facility: [facility] Address: [address] [place], [place] [address] Performed By: #### 5 7021-8 #### [facility] CLIA [id number] [address] [id number] [facility] RBC (Bld) [#/Vol] 4.79 10*6/uL Normal 3.90-5.20 [facility] Comment on above: Order Comment: Speci men Type: BLOOD SPECIMEN Ordering Facility: [facility] Address: [address] [place] [address] Performed By: #### 5 7021-8 #### [facility] [place] [id number] [address] [place] [address] WBC (Bld) [#/Vol] 8.13 10*3/uL Normal 3.70-11.00 [facility] Comment on above: Order Comment: Speci men Type: BLOOD SPECIMEN Ordering Facility: [facility] Address: [address] [place], [place] [address] Performed By: #### 5 7021-8 #### [facility] [place] [id number] [address] [place], [place] [address] [facility] CONFIRM BLOOD TYPEon 022 ABO O Normal [facility] Comment on above: Order Comment: Speci men Type: BLOOD SPECIMEN Ordering Facility: [facility] Address: [address] [place] [address] Performed By: #### C ONABO #### [facility] CLIA [id number] [address] [place] [address] [place] Rh Nom (Bld) Positive Normal [facility] Comment on above: Order Comment: Speci men Type: BLOOD SPECIMEN Ordering Facility: [facility] Address: [address] [place] [address] Performed By: #### C ONABO #### [facility] CLIA [id number] [facility] [address] Comprehensive metabolic 2000 panelon 11-13-2021 Albumin [Mass/Vol] 4.5 g/dL Normal 3.9-4.9 [facility] Comment on above: Order Comment: Speci men Type: BLOOD SPECIMEN Ordering Facility: [facility] Address: [address] [place] [address] Performed By: #### 2 4323-8 #### [facility] [place] [id number] [address] [place] [address] [place] ALP [Catalytic activity/Vol] 94 U/L Normal 34-123 [facility] Comment on above: Order Comment: Speci men Type: BLOOD SPECIMEN Ordering Facility: [facility] Address: [address] [place] [address] Performed By: #### 2 4323-8 #### [facility] IA [id number] [facility] [address] [place] ALT [Catalytic activity/Vol] 23 U/L Normal 7-38 [facility] Comment on above: Order Comment: Speci men Type: BLOOD SPECIMEN Ordering Facility: [facility] Address: [address] [place], [place] [address] Performed By: #### 2 4323-8 #### [facility] CLIA [id number] [address] [place] [address] STATES [facility] Anion gap [Moles/Vol] 13 mmol/L Normal 9-18 [facility] Comment on above: Order Comment: Speci men Type: BLOOD SPECIMEN Ordering Facility: [facility] Address: [address] [place], [place] [address] Performed By: #### 2 4323-8 #### [facility] CLIA [id number] [address] [place] [address] [place] AST [Catalytic activity/Vol] 19 U/L Normal 13-35 [facility] Comment on above: Order Comment: Speci men Type: BLOOD SPECIMEN Ordering Facility: [facility] Address: [address] [place], [place] [address] Performed By: #### 2 4323-8 #### [facility] CLIA [id number] [address] [place] [address] [place] Bilirubin [Mass/Vol] 0.8 mg/dL Normal 0.2-1.3 [facility] Comment on above: Order Comment: Speci men Type: BLOOD SPECIMEN Ordering Facility: [facility] Address: [address] [place] [address] Performed By: #### 2 4323-8 #### [facility] IA [id number] [address] [place] [address] [place] Calcium [Mass/Vol] 9.5 mg/dL Normal 8.5-10.2 [facility] Comment on above: Order Comment: Speci men Type: BLOOD SPECIMEN Ordering Facility: [facility] Address: [address] [place] [address] Performed By: #### 2 4323-8 #### [facility] CLIA [id number] [address] [place], [place] [id number] [place] Chloride [Moles/Vol] 101 mmol/L Normal 97-105 [facility] Comment on above: Order Comment: Speci men Type: BLOOD SPECIMEN Ordering Facility: [facility] Address: [address] [place], [place] [address] Performed By: #### 2 4323-8 #### [facility] CLIA [id number] [address] [place] [id number] [place] CO2 [Moles/Vol] 27 mmol/L Normal 22-30 [facility] Comment on above: Order Comment: Felecia uli Type: BLOOD SPECIMEN Ordering Facility: [facility] Address: [address] [place] [address] Performed By: #### 2 4323-8 #### [facility] CLIA [id number] [address] [place], [place] [address] [place] Creatinine [Mass/Vol] 0.90 mg/dL Normal 0.58-0.96 [facility] Comment on above: Order Comment: Felecia uli Type: BLOOD SPECIMEN Ordering Facility: [facility] Address: [address] [place] [address] Performed By: #### 2 4323-8 #### [facility] CLIA [id number] [address] [place] [address] [place] ESTIMATED GLOMERULAR FILTRATION RATE 74 mL/min/1.73m??? Normal >=60 [facility] Comment on above: Order Comment: Omkarraysa mcnally Type: BLOOD SPECIMEN Ordering Facility: [facility] Address: [address] [place] [address] Result Comment: Lory mated Glomerular Filtration Rate [...] GFR. Performed By: #### 2 4323-8 #### [facility] CLIA [id number] [address] [place], [place] [address] [place] Glucose [Mass/Vol] 156 mg/dL High 74-99 [facility] Comment on above: Order Comment: Felecia mcnally Type: BLOOD SPECIMEN Ordering Facility: [facility] Address: [address] [place] [address] Result Comment: The [place] Diabetes Association (ADA) provides guidance for cutoff [...] Standards of Medical Care in Diabetes 2016, [place] [employer] Association. Diabetes Care. 2016.39(Suppl 1). Performed By: #### 2 4323-8 #### [facility] CLIA [id number] [address] [place] [address] [place] Potassium [Moles/Vol] 4.9 mmol/L Normal 3.7-5.1 [facility] Comment on above: Order Comment: Felecia mcnally Type: BLOOD SPECIMEN Ordering Facility: [facility] Address: [address] [place] [address] Performed By: #### 2 4323-8 #### [facility] IA [id number] [address] [place], [place] [address] [place] Protein [Mass/Vol] 7.0 g/dL Normal 6.3-8.0 [facility] Comment on above: Order Comment: Felecia mcnally Type: BLOOD SPECIMEN Ordering Facility: [facility] Address: [address] [place] [address] Performed By: #### 2 4323-8 #### [facility] CLIA [id number] [address] [place], [place] [address] [place] Sodium [Moles/Vol] 141 mmol/L Normal 136-144 [facility] Comment on above: Order Comment: Felecia mcnally Type: BLOOD SPECIMEN Ordering Facility: [facility] Address: [address] [place] [address] Performed By: #### 2 4323-8 #### [facility] CLIA [id number] [address] [place], [place] [address] [place] Urea nitrogen [Mass/Vol] 26 mg/dL High 7-21 [facility] Comment on above: Order Comment: Felecia mcnally Type: BLOOD SPECIMEN Ordering Facility: [facility] Address: [address] [place] [address] Performed By: #### 2 4323-8 #### [facility] CLIA [id number] [address] [place] [place] [address] [place] Fact VIII Act/Nor PPPon 10-19 Coagulation factor VIII activity actual/normal Coag (PPP) [Relative time] 123 % Normal 50-173 [facility] Comment on above: Order Comment: Felecia mcnally Type: BLOOD SPECIMEN Ordering Facility: [facility] Address: [address] [place] [address] Performed By: #### 3 209-4 #### [facility] CLIA [id number] [address] [place] [address] [place] HbA1c (Bld)on 11-13-2021 Average glucose Estimated from glycated hemoglobin (Bld) [Mass/Vol] 189 mg/dL Normal [facility] Comment on above: Order Comment: Felecia mcnally Type: BLOOD SPECIMEN Ordering Facility: [facility] Address: [address] [place] [address] Result Comment: eAG: (Estimated average glucose) is a calculated value from HgbA1c and is sales representative trainee of the average blood glucose level in the last 2-3 month period. Performed By: #### 5 5454-3 #### [facility] CLIA [id number] [address] [place] [address] [place] HbA1c (Bld) [Mass fraction] 8.2 % High 4.3-5.6 [facility] Comment on above: Order Comment: Felecia mcnally Type: BLOOD SPECIMEN Ordering Facility: [facility] Address: [address] [place] [address] Result Comment: [place] Diabetes Association guidelines indicate that patients with HgbA1c in the range 5.7-6.4% are at increased risk for development of diabetes, and intervention by lifestyle modification may be beneficial. HgbA1c greater or equal to 6.5% is considered diagnostic of diabetes. Performed By: #### 5 5454-3 #### [facility] CLIA [id number] [address] [place], [place] [address]K [address] TYPE AND SCREEN,30 DAYon ABO O [facility] Comment on above: Order Comment: Speci men Type: BLOOD SPECIMEN Ordering Facility: [facility] Address: [address] [place] [address] Performed By: #### T SCR30 #### [facility] CLIA [id number] [address] [place] [address] HISTORICAL AB SCR STATUS Negative [facility] Comment on above: Order Comment: Speci men Type: BLOOD SPECIMEN Ordering Facility: [facility] Address: [address] [place] [address] Performed By: #### T SCR30 #### [facility] CLIA [id number] [address] [place] [address] [place] Rh Nom (Bld) Positive [facility] Comment on above: Order Comment: Speci men Type: BLOOD SPECIMEN Ordering Facility: [facility] Address: [address] [place] [address] Performed By: #### T SCR30 #### [facility] IA [id number] [address] [place] [address] BNPon 09-28-2021 Natriuretic peptide B (Bld) [Mass/Vol] 131.0 pg/mL Normal <=900.0 [facility] Comment on above: Performed By: #### B SPEED BELT SANDER, CMP #### [facility] [address] [place], [place] [address] Dr. Argelia Baird PROF 14(COMP METB)on 022 Albumin [Mass/Vol] 3.6 g/dL Normal 3.4-5.0 [facility] Comment on above: Performed By: #### B SPEED BELT SANDER, CMP #### [facility] [address] [place] [address] [address] Argelia Baird Albumin/Globulin [Mass ratio] 1.0 {ratio} Normal [facility] Comment on above: Performed By: #### B SPEED BELT SANDER, CMP #### [facility] [address] [place] [address] [address] Argelia Baird ALP [Catalytic activity/Vol] 90 U/L Normal 46-[address] [facility] Comment on above: Performed By: #### B SPEED BELT SANDER, CMP #### [facility] [address] [place] [address] [address] Argelia Baird ALT [Catalytic activity/Vol] 33 U/L Normal 14-[address] [facility] Comment on above: Performed By: #### B SPEED BELT SANDER, CMP #### [facility] [address] [place] [address] Dr. Argelia Baird Anion gap [Moles/Vol] 11.7 mmol/L Normal [facility] Comment on above: Performed By: #### B SPEED BELT SANDER, CMP #### [facility] [address] [place] [address] Dr. Argelia Baird AST [Catalytic activity/Vol] 21 U/L Normal 15-[address] [facility] Comment on above: Performed By: #### B SPEED BELT SANDER, CMP #### [facility] [address] [place] [address] Dr. Argelia Baird Bilirubin [Mass/Vol] 0.5 mg/dL Normal 0.2-1.[address] [facility] Comment on above: Performed By: #### B SPEED BELT SANDER, CMP #### [facility] [address] [place] [address] [address] Argelia Baird Calcium [Mass/Vol] 8.9 mg/dL Normal 8.5-10.1 [facility] Comment on above: Performed By: #### B SPEED BELT SANDER, CMP #### [facility] [address] [place] [address] [address] Argelia Baird Chloride [Moles/Vol] 102 mmol/L Normal 98-[address] [facility] Comment on above: Performed By: #### B SPEED BELT SANDER, CMP #### [facility] [address] [place] [address] [address] Argelia Baird CO2 [Moles/Vol] 29.3 mmol/L Normal 21.0-32.0 [facility] Comment on above: Performed By: #### B SPEED BELT SANDER, CMP #### [facility] [address] [place] [address] [address] Argelia Baird Creatinine [Mass/Vol] 1.05 mg/dL Critically high 0.55-1.[address] [facility] Comment on above: Performed By: #### B SPEED BELT SANDER, CMP #### [facility] [address] [place] [address] [address] Argelia Baird EGFR-AF GABONESE >60 Normal >=60 [facility] Comment on above: Performed By: #### B SPEED BELT SANDER, CMP #### [facility] [address] [place] [address] [address] Argelia Baird EGFR-NON AF GABONESE 54 mL/min/1.73m2 Critically low >=[address] [facility] Comment on above: Performed By: #### B SPEED BELT SANDER, CMP #### [facility] [address] [place] [address] [address] Argelia Baird Globulin (S) [Mass/Vol] 3.5 g/dL Normal [facility] Comment on above: Performed By: #### B SPEED BELT SANDER, CMP #### [facility] [address] [place] [address] [address] Argelia Baird Glucose [Mass/Vol] 145 mg/dL Critically high 74-106 [facility] Comment on above: Performed By: #### B SPEED BELT SANDER, CMP #### [facility] [address] [place] [address] [address] Argelia Baird Potassium [Moles/Vol] 4.0 mmol/L Normal 3.5-5.[address] [facility] Comment on above: Performed By: #### B SPEED BELT SANDER, CMP #### [facility] [address] [place] [address] [address] Argelia Baird Protein [Mass/Vol] 7.1 g/dL Normal 6.4-8.2 [facility] Comment on above: Performed By: #### B SPEED BELT SANDER, CMP #### [facility] [address] [place] [address] Dr. Argelia Baird Sodium [Moles/Vol] 139 mmol/L Normal 136-145 [facility] Comment on above: Performed By: #### B SPEED BELT SANDER, CMP #### [facility] [address] [place] [address] Dr. Argelia Baird Urea nitrogen [Mass/Vol] 32.0 mg/dL Critically high 7.0-18.[address] [facility] Comment on above: Performed By: #### B SPEED BELT SANDER, CMP #### [facility] [address] [place] [address] Dr. Argelia Baird Urea nitrogen/Creatinine [Mass ratio] 30.5 mg/mg Normal [facility] Comment on above: Performed By: #### B SPEED BELT SANDER, CMP #### [facility] [address] [place] [address] Dr. Argelia Baird BNPon 09-20-2021 Natriuretic peptide B (Bld) [Mass/Vol] 162.0 pg/mL Normal <=900.[address] [facility] Comment on above: Performed By: #### B SPEED BELT SANDER, CMP #### [facility] [address] [place] [address] Dr. Argelia Baird CBC AUTO DIFFon 09-20-2021 BASO # 0.0 103/ul Normal 0.0-0.[address] [facility] Comment on above: Performed By: #### B SPEED BELT SANDER, CMP #### [facility] [address] [place] [address] Dr. Argelia Baird Basophils/100 WBC (Bld) 0.4 % Normal 0.2-2.[address] [facility] Comment on above: Performed By: #### B SPEED BELT SANDER, CMP #### [facility] [address] [place] [address] Dr. Argelia Baird EO # 0.3 103/ul Normal 0.0-0.[address] [facility] Comment on above: Performed By: #### B SPEED BELT SANDER, CMP #### [facility] [address] [place] [address] Dr. Argelia Baird Eosinophils/100 WBC (Bld) 3.8 % Normal 0.9-7.[address] [facility] Comment on above: Performed By: #### B SPEED BELT SANDER, CMP #### [facility] [address] [place] [address] Dr. Argelia Baird Erythrocyte distribution width (RBC) [Ratio] 14.1 % Normal 11.0-15.[address] [facility] Comment on above: Performed By: #### B SPEED BELT SANDER, CMP #### [facility] [address] [place] [address] Dr. Argelia Baird Hematocrit (Bld) [Volume fraction] 41.7 % Normal 36.0-48.[address] [facility] Comment on above: Performed By: #### B SPEED BELT SANDER, CMP #### [facility] [address] [place] [address] Dr. Argelia Baird Hemoglobin (Bld) [Mass/Vol] 13.0 g/dL Normal 12.0-16.[address] [facility] Comment on above: Performed By: #### B SPEED BELT SANDER, CMP #### [facility] [address] [place] [address] Dr. Argelia Baird IG # 0.02 10e3/ul Normal 0.00-0.[address] [facility] Comment on above: Performed By: #### B SPEED BELT SANDER, CMP #### [facility] [address] [place] [address] Dr. Argelia Baird IG % 0.3 % Normal 0.0-0.[address] [facility] Comment on above: Performed By: #### B SPEED BELT SANDER, CMP #### [facility] [address] [place] [address] Dr. Argelia Baird LYMPH # 1.1 103/ul Critically low 1.2-3.8 [facility] Comment on above: Performed By: #### B SPEED BELT SANDER, CMP #### [facility] [address] [place] [address] Dr. Argelia Baird Lymphocytes/100 WBC (Bld) 14.2 % Critically low 20.5-60.[address] [facility] Comment on above: Performed By: #### B SPEED BELT SANDER, CMP #### [facility] [address] [place] [address] Dr. Argelia Baird MANUAL DIFF REQ NO Normal [facility] Comment on above: Performed By: #### B SPEED BELT SANDER, CMP #### [facility] [address] [place] [address] Dr. Argelia Baird MCH (RBC) [Entitic mass] 28.9 pg Normal 26.7-34.0 [facility] Comment on above: Performed By: #### B SPEED BELT SANDER, CMP #### [facility] [address] [place] [address] Dr. Argelia Baird MCHC (RBC) [Mass/Vol] 31.2 g/dL Normal 29.9-35.2 [facility] Comment on above: Performed By: #### B SPEED BELT SANDER, CMP #### [facility] [address] [place] [address] Dr. Argelia Baird MCV (RBC) [Entitic vol] 92.7 fL Normal 81.0-99.0 [facility] Comment on above: Performed By: #### B SPEED BELT SANDER, CMP #### [facility] [address] [place] [address] Dr. Argelia Baird MONO # 0.9 103/ul Critically high 0.3-0.8 [facility] Comment on above: Performed By: #### B SPEED BELT SANDER, CMP #### [facility] [address] [place] [address] Dr. Argelia Baird Monocytes/100 WBC (Bld) 11.2 % Normal 1.7-12.0 [facility] Comment on above: Performed By: #### B SPEED BELT SANDER, CMP #### [facility] [address] [place] [address] Dr. Argelia Baird NEUT # 5.4 103/ul Normal 1.4-6.5 [facility] Comment on above: Performed By: #### B SPEED BELT SANDER, CMP #### [facility] [address] [place] [address] Dr. Argelia Baird Neutrophils/100 WBC (Bld) 70.1 % Normal 43.0-75.0 [facility] Comment on above: Performed By: #### B SPEED BELT SANDER, CMP #### [facility] [address] [place] [address] Dr. Argelia Baird Platelet mean volume (Bld) [Entitic vol] 9.1 fL Critically low 9.5-13.[address] [facility] Comment on above: Performed By: #### B SPEED BELT SANDER, CMP #### [facility] [address] [place] [address] Dr. Argelia Baird PLT 319 103/ul Normal 150-[address] [facility] Comment on above: Performed By: #### B SPEED BELT SANDER, CMP #### [facility] [address] [place] [address] Dr. Argelia Baird RBC 4.50 106/ul Normal 4.20-5.[address] [facility] Comment on above: Performed By: #### B SPEED BELT SANDER, CMP #### [facility] [address] [place] [address] Dr. Argelia Baird WBC 7.7 103/ul Normal 4.0-11.[address] [facility] Comment on above: Performed By: #### B SPEED BELT SANDER, CMP #### [facility] [address] [place] [address] Dr. Argelia Baird PROF 14(COMP METB)on 022 Albumin [Mass/Vol] 3.6 g/dL Normal 3.4-5.0 [facility] Comment on above: Performed By: #### B SPEED BELT SANDER, CMP #### [facility] [address] [place] [address] Dr. Argelia Baird Albumin/Globulin [Mass ratio] 1.1 {ratio} Normal [facility] Comment on above: Performed By: #### B SPEED BELT SANDER, CMP #### [facility] [address] [place] [address] Dr. Argelia Baird ALP [Catalytic activity/Vol] 123 U/L Critically high 46-116 [facility] Comment on above: Performed By: #### B SPEED BELT SANDER, CMP #### [facility] [address] [place] [address] Dr. Argelia Baird ALT [Catalytic activity/Vol] 45 U/L Normal 14-[address] [facility] Comment on above: Performed By: #### B SPEED BELT SANDER, CMP #### [facility] [address] [place] [address] [address] Argelia Baird Anion gap [Moles/Vol] 6.0 mmol/L Normal [facility] Comment on above: Performed By: #### B SPEED BELT SANDER, CMP #### [facility] [address] [place] [address] [address] Argelia Baird AST [Catalytic activity/Vol] 28 U/L Normal 15-[address] [facility] Comment on above: Performed By: #### B SPEED BELT SANDER, CMP #### [facility] [address] [place] [address] Dr. Argelia Baird Bilirubin [Mass/Vol] 1.0 mg/dL Normal 0.2-1.[address] [facility] Comment on above: Performed By: #### B SPEED BELT SANDER, CMP #### [facility] [address] [place] [address] Dr. Argelia Baird Calcium [Mass/Vol] 8.6 mg/dL Normal 8.5-10.1 [facility] Comment on above: Performed By: #### B SPEED BELT SANDER, CMP #### [facility] [address] [place] [address] Dr. Argelia Baird Chloride [Moles/Vol] 99 mmol/L Normal 98-107 [facility] Comment on above: Performed By: #### B SPEED BELT SANDER, CMP #### [facility] [address] [place] [address] Dr. Argelia Baird CO2 [Moles/Vol] 34.0 mmol/L Critically high 21.0-32.0 [facility] Comment on above: Performed By: #### B SPEED BELT SANDER, CMP #### [facility] [address] [place] [address] Dr. Argelia Baird Creatinine [Mass/Vol] 1.11 mg/dL Critically high 0.55-1.[address] [facility] Comment on above: Performed By: #### B SPEED BELT SANDER, CMP #### [facility] [address] [place] [address] Dr. Argelia Baird EGFR-AF GABONESE >60 Normal >=60 [facility] Comment on above: Performed By: #### B SPEED BELT SANDER, CMP #### [facility] [address] [place] [address] [address] Argelia Baird EGFR-NON AF GABONESE 50 mL/min/1.73m2 Critically low >=[address] [facility] Comment on above: Performed By: #### B SPEED BELT SANDER, CMP #### [facility] [address] [place] [address] [address] Argelia Baird Globulin (S) [Mass/Vol] 3.4 g/dL Normal [facility] Comment on above: Performed By: #### B SPEED BELT SANDER, CMP #### [facility] [address] [place] [address] [address] Argelia Baird Glucose [Mass/Vol] 84 mg/dL Normal 74-106 [facility] Comment on above: Performed By: #### B SPEED BELT SANDER, CMP #### [facility] [address] [place] [address] [address] Argelia Baird Potassium [Moles/Vol] 3.0 mmol/L Critically low 3.5-5.[address] [facility] Comment on above: Performed By: #### B SPEED BELT SANDER, CMP #### [facility] [address] [place] [address] [address] Argelia Baird Protein [Mass/Vol] 7.0 g/dL Normal 6.1-8.2 [facility] Comment on above: Performed By: #### B SPEED BELT SANDER, CMP #### [facility] [address] [place] [address] [address] Argelia Baird Sodium [Moles/Vol] 136 mmol/L Normal 136-145 [facility] Comment on above: Performed By: #### B SPEED BELT SANDER, CMP #### [facility] [address] [place] [address] [address] Argelia Baird Urea nitrogen [Mass/Vol] 30.0 mg/dL Critically high 7.0-18.0 [facility] [facility] Comment on above: Performed By: #### B SPEED BELT SANDER, CMP #### [facility] [address] [address] [address] Argelia Baird Urea nitrogen/Creatinine [Mass ratio] 27.0 mg/mg Normal [facility] Comment on above: Performed By: #### B SPEED BELT SANDER, CMP #### [facility] [address] [place] [address] Dr. Argelia Baird BNPon 09-19-2021 Natriuretic peptide B (Bld) [Mass/Vol] 199.0 pg/mL Normal <=900.0 [facility] Comment on above: Performed By: #### C MREP #### [facility] [address] [place] [address] Dr. Argelia Baird CARDIAC JAMES 3-6on 2 CK [Catalytic activity/Vol] 90 U/L Normal 26-192 [facility] Comment on above: Performed By: #### B SPEED BELT SANDER, CMP #### [facility] [address] [place] [address] Dr. Argelia Baird CK.MB [Mass/Vol] 1.84 ng/mL Normal <=3.60 [facility] Comment on above: Performed By: #### B SPEED BELT SANDER, CMP #### [facility] [address] [place] [address] Dr. Argelia Baird HSTROP 14.1 pg/mL Normal 4.0-51.3 [facility] Comment on above: Result Comment: CUT- OFF POINTS HAVE BEEN ESTABLISHED BASED ON THE FOURTH UNIVERSAL DEFINITIONS OF MYOCARDIAL INFARCTION. THE UPPER REFERENCE LIMIT (URL) OF TROPONIN, DEFINED THE 99TH PERCENTILE OF cTnI DISTRIBUTION IN A REFERENCE POPULATION, HAS BEEN CONFIRMED THE DECISION THRESHOLD FOR [place] DIAGNOSIS. Performed By: #### B SPEED BELT SANDER, CMP #### [facility] [address] [place] [address] Dr. Argelia Baird CK [Catalytic activity/Vol] 106 U/L Normal 26-192 [facility] Comment on above: Performed By: #### C MREP #### [facility] [address] [place] [address] Dr. Argelia Baird CK.MB [Mass/Vol] 1.93 ng/mL Normal <=3.60 [facility] Comment on above: Performed By: #### C MREP #### [facility] [address] [place] [address] Dr. Argelia Baird HSTROP 15.0 pg/mL Normal 4.0-51.3 [facility] Comment on above: Result Comment: CUT- OFF POINTS HAVE BEEN ESTABLISHED BASED ON THE FOURTH UNIVERSAL DEFINITIONS OF MYOCARDIAL INFARCTION. THE UPPER REFERENCE LIMIT (URL) OF TROPONIN, DEFINED THE 99TH PERCENTILE OF cTnI DISTRIBUTION IN A REFERENCE POPULATION, HAS BEEN CONFIRMED THE DECISION THRESHOLD FOR [place] DIAGNOSIS. Performed By: #### C MREP #### [facility] [address] [place] [address] Dr. Argelia Baird CARDIAC JAMES ADMITon 022 CK [Catalytic activity/Vol] 127 U/L Normal 26-192 [facility] Comment on above: Performed By: #### C MREP #### [facility] [address] [place] [address] Dr. Argelia Baird CK.MB [Mass/Vol] 1.94 ng/mL Normal <=3.60 [facility] Comment on above: Performed By: #### C MREP #### [facility] [address] [place] [address] Dr. Argelia Baird MAU 62 ng/mL Normal 9-[address] [facility] Comment on above: Performed By: #### C MREP #### [facility] [address] [place] [address] Dr. Argelia Baird CBC AUTO DIFFon 09-19-2021 BASO # 0.1 103/ul Normal 0.0-0.[address] [facility] Comment on above: Performed By: #### C MREP #### [facility] [address] [place] [address] Dr. Argelia Baird Basophils/100 WBC (Bld) 0.7 % Normal 0.2-2.[address] [facility] Comment on above: Performed By: #### C MREP #### [facility] [address] [place] [address] Dr. Argelia Baird EO # 0.3 103/ul Normal 0.0-0.7 [facility] Comment on above: Performed By: #### C MREP #### [facility] [address] [place] [address] Dr. Argelia Baird Eosinophils/100 WBC (Bld) 3.9 % Normal 0.9-7.0 [facility] Comment on above: Performed By: #### C MREP #### [facility] [address] [place] [address] Dr. Argelia Baird Erythrocyte distribution width (RBC) [Ratio] 13.9 % Normal 11.0-15.[address] [facility] Comment on above: Performed By: #### C MREP #### [facility] [address] [place] [address] Dr. Agrelia Baird Hematocrit (Bld) [Volume fraction] 43.7 % Normal 36.0-48.[address] [facility] Comment on above: Performed By: #### C MREP #### [facility] [address] [place] [address] Dr. Argelia Baird Hemoglobin (Bld) [Mass/Vol] 14.1 g/dL Normal 12.0-16.[address] [facility] Comment on above: Performed By: #### C MREP #### [facility] [address] [place] [address] Dr. Argelia Baird IG # 0.03 10e3/ul Normal 0.00-0.[address] [facility] Comment on above: Performed By: #### C MREP #### [facility] [address] [place] [address] Dr. Argelia Baird IG % 0.4 % Normal 0.0-0.[address] [facility] Comment on above: Performed By: #### C MREP #### [facility] [address] [place] [address] Dr. Argelia Baird LYMPH # 1.2 103/ul Normal 1.2-3.8 [facility] Comment on above: Performed By: #### C MREP #### [facility] [address] [place] [address] Dr. Argelia Baird Lymphocytes/100 WBC (Bld) 14.4 % Critically low 20.5-60.[address] [facility] Comment on above: Performed By: #### C MREP #### [facility] [address] [place] [address] Dr. Argelia Baird MANUAL DIFF REQ NO Normal [facility] Comment on above: Performed By: #### C MREP #### [facility] [address] [address] [address] Argelia Baird MCH (RBC) [Entitic mass] 28.9 pg Normal 26.7-34.[address] [facility] Comment on above: Performed By: #### C MREP #### [facility] [address] [place] [address] Dr. Argelia Baird MCHC (RBC) [Mass/Vol] 32.3 g/dL Normal 29.9-35.[address] [facility] Comment on above: Performed By: #### C MREP #### [facility] [address] [place] [address] Dr. Argelia Baird MCV (RBC) [Entitic vol] 89.5 fL Normal 81.0-99.[address] [facility] Comment on above: Performed By: #### C MREP #### [facility] [address] [place] [address] Dr. Argelia Baird MONO # 0.8 103/ul Normal 0.3-0.[address] [facility] Comment on above: Performed By: #### C MREP #### [facility] [address] [place] [address] Dr. Argelia Baird Monocytes/100 WBC (Bld) 9.7 % Normal 1.7-12.[address] [facility] Comment on above: Performed By: #### C MREP #### [facility] [address] [place] [address] Dr. Argelia Baird NEUT # 6.1 103/ul Normal 1.4-6.5 [facility] Comment on above: Performed By: #### C MREP #### [facility] [address] [place] [address] Dr. Argelia Baird Neutrophils/100 WBC (Bld) 70.9 % Normal 43.0-75.[address] [facility] Comment on above: Performed By: #### C MREP #### [facility] [address] [place] [address] Dr. Argelia Baird Platelet mean volume (Bld) [Entitic vol] 9.2 fL Critically low 9.5-13.5 [facility] Comment on above: Performed By: #### C MREP #### [facility] [address] [address] [address] Argelia Baird PLT 342 103/ul Normal 150-450 [facility] Comment on above: Performed By: #### C MREP #### [facility] [address] [place] [address] Dr. Argelia Baird RBC 4.88 106/ul Normal 4.20-5.[address] [facility] Comment on above: Performed By: #### C MREP #### [facility] [address] [place] [address] Dr. Argelia Baird WBC 8.6 103/ul Normal 4.0-11.[address] [facility] Comment on above: Performed By: #### C MREP #### [facility] [address] [place] [address] Dr. Argelia Baird Covid-19 PCR (CVDTB)on SARS-CoV-2 (COVID-19) RNA FOX+probe Ql (Unsp spec) Not detected Normal NOT DETECTED [facility] Comment on above: Result Comment: When diagnostic [...] for this test is supported by the [place] of Health and Human Service's declaration that [...] used). Performed By: #### C VDTBH #### [facility] [address] [place] [address] Dr. Argelia Baird D-DIMERon 09-19-2021 D-DIMER 0.26 mg/L FEU Normal 0.19-0.50 [facility] Comment on above: Performed By: #### B SPEED BELT SANDER, CMP #### [facility] [address] [address] [address] Argelia Baird D-DIMER COMMENTS SEE BELOW Normal [facility] Comment on above: Result Comment: Incr [...] and generalized hospitalization. Performed By: #### B SPEED BELT SANDER, CMP #### [facility] [address] [address] [address] Argelia Baird ECHO LIMITED STUDYon 022 ECHO LIMITED STUDY Patient: ASHLEY SERRA Exam Date: 09/19/2021 : 1965 Gender:F Ordering : DR PATTI VALDEZ . Admission #: [id number] Family : Order #: [id number] CLICK HERE TO VIEW EXAM ECHOCARDIOGRAM REPORT [...] Burnett M.D. on 09/19/2021 at 13:[address] [facility] ER URINE PROFILEon 2 Bilirubin Ql (U) Negative Normal NEGATIVE [facility] Comment on above: Performed By: #### B SPEED BELT SANDER, CMP #### [facility] [address] [place] [address] Dr. Argelia Baird Clarity (U) CLEAR Normal CLEAR [facility] Comment on above: Performed By: #### B SPEED BELT SANDER, CMP #### [facility] [address] [place] [address] Dr. Argelia Baird Color (U) LT. YELLOW Normal YELLOW [facility] Comment on above: Performed By: #### B SPEED BELT SANDER, CMP #### [facility] [address] [place] [address] Dr. Argelia Baird ERUFLAKITO A micrscopic examination will be performed if indicated. Normal [facility] Comment on above: Performed By: #### B SPEED BELT SANDER, CMP #### [facility] [address] [place] [address] Dr. Argelia Baird Glucose Ql (U) >1000 Abnormal NEGATIVE [facility] Comment on above: Performed By: #### B SPEED BELT SANDER, CMP #### [facility] [address] [place] [address] Dr. Argelia Baird Hemoglobin Ql (U) Negative Normal NEGATIVE [facility] Comment on above: Performed By: #### B SPEED BELT SANDER, CMP #### [facility] [address] [place] [address] Dr. Argelia Baird Ketones Ql (U) Negative Normal NEGATIVE [facility] Comment on above: Performed By: #### B SPEED BELT SANDER, CMP #### [facility] [address] [place] [address] Dr. Argelia Baird LEUKOCYTES Negative Normal NEGATIVE [facility] Comment on above: Performed By: #### B SPEED BELT SANDER, CMP #### [facility] [address] [place] [address] Dr. Argelia Baird Nitrite Ql (U) Negative Normal NEGATIVE [facility] Comment on above: Performed By: #### B SPEED BELT SANDER, CMP #### [facility] [address] [place] [address] Dr. Argelia Baird pH (U) 5.5 [pH] Normal 5-[address] [facility] Comment on above: Performed By: #### B SPEED BELT SANDER, CMP #### [facility] [address] [place] [address] Dr. Argelia Baird SPEC GRAVITY <=1.005 Abnormal 1.005-<=1.025 [facility] Comment on above: Performed By: #### B SPEED BELT SANDER, CMP #### [facility] [address] [place] [address] Dr. Argelia Baird UA PROTEIN Negative Normal NEGATIVE/ TRACE [facility] Comment on above: Performed By: #### B SPEED BELT SANDER, CMP #### [facility] [address] [place] [address] Dr. Argelia Baird UR MICRO IND NOT INDICATED Normal [facility] Comment on above: Performed By: #### B SPEED BELT SANDER, CMP #### [facility] [address] [place] [address] Dr. Argelia Baird Urobilinogen Qn (U) 0.2 {Mp'U}/dL Normal 0.2 - 1. [address] [facility] Comment on above: Performed By: #### B SPEED BELT SANDER, CMP #### [facility] [address] [place] [address] Dr. Argelia Baird PROTIMEon 09-19-2021 INR Coag (PPP) [Relative time] 1.03 {INR} Normal [facility] Comment on above: Performed By: #### B SPEED BELT SANDER, CMP #### [facility] [address] [place] [address] Dr. Argelia Baird INR GUIDELINES SEE BELOW Normal [facility] Comment on above: Result Comment: MIGUEL RED INR: 2.0 - 3.0 CONDITIONS NOT LISTED BELOW 2.5 - 3.5 FOR PROSTHETIC HEART VALVE REPLACEMENT 2.5 - 3.5 RECURRENT THROMBOSIS Performed By: #### B SPEED BELT SANDER, CMP #### [facility] [address] [place] [address] Dr. Argelia Baird PT Coag (PPP) [Time] 11.1 s Normal 9.0-11.6 [facility] Comment on above: Performed By: #### B SPEED BELT SANDER, CMP #### [facility] [address] [place] [address] Dr. Argelia Baird PTTon 09-19-2021 aPTT Coag (Bld) [Time] 26.6 s Normal 22.3-36.2 [facility] Comment on above: Performed By: #### B SPEED BELT SANDER, CMP #### [facility] [address] [place] [address] Dr. Argelia Baird TROPONIN, HIGH SENSITIVITYon 09-19-2021 HSTROP 15.1 pg/mL Normal 4.0-51.3 [facility] Comment on above: Result Comment: CUT- OFF POINTS HAVE BEEN ESTABLISHED BASED ON THE FOURTH UNIVERSAL DEFINITIONS OF MYOCARDIAL INFARCTION. THE UPPER REFERENCE LIMIT (URL) OF TROPONIN, DEFINED THE 99TH PERCENTILE OF cTnI DISTRIBUTION IN A REFERENCE POPULATION, HAS BEEN CONFIRMED THE DECISION THRESHOLD FOR [place] DIAGNOSIS. Performed By: #### C VDTB #### [facility] [address] [place] [address] Dr. Argelia Baird HSTROP 16.0 pg/mL Normal 4.0-51.3 [facility] Comment on above: Result Comment: CUT- OFF POINTS HAVE BEEN ESTABLISHED BASED ON THE FOURTH UNIVERSAL DEFINITIONS OF MYOCARDIAL INFARCTION. THE UPPER REFERENCE LIMIT (URL) OF TROPONIN, DEFINED THE 99TH PERCENTILE OF cTnI DISTRIBUTION IN A REFERENCE POPULATION, HAS BEEN CONFIRMED THE DECISION THRESHOLD FOR [place] DIAGNOSIS. Performed By: #### C MREP #### [facility] [address] [address] [address] Argelia Baird XR CHEST 1 Von [...] AUNDREA GOSS Date: 2021-09-19 08:54 Normal [facility] CARDIAC JAMES ADMITon 022 CK [Catalytic activity/Vol] 67 U/L Normal 30-135 [facility] Comment on above: Performed By: #### B SPEED BELT SANDER, CMP #### [facility] [address] [address] [address] Argelia Baird CK.MB [Mass/Vol] 1.66 ng/mL Normal <=2.37 [facility] Comment on above: Performed By: #### B SPEED BELT SANDER, CMP #### [facility] [address] [address] [address] Argelia Baird HSTROP 92.9 pg/mL Critically high 4.0-35.5 [facility] Comment on above: Result Comment: CUT- OFF POINTS HAVE BEEN ESTABLISHED BASED ON THE FOURTH UNIVERSAL DEFINITIONS OF MYOCARDIAL INFARCTION. THE UPPER REFERENCE LIMIT (URL) OF TROPONIN, DEFINED THE 99TH PERCENTILE OF cTnI DISTRIBUTION IN A REFERENCE POPULATION, HAS BEEN CONFIRMED THE DECISION THRESHOLD FOR [place] DIAGNOSIS. Test Repeated Critical Value Verified Performed By: #### B SPEED BELT SANDER, CMP #### [facility] [address] [address] [address] Argelia Baird MAU 45.0 ng/mL Normal <=61.5 [facility] Comment on above: Performed By: #### B SPEED BELT SANDER, CMP #### [facility] [address] [place] [address] Dr. Argelia Baird ECHOCARDIO M/2D COMPLETEon 0 07-26-2021 ECHOCARDIO M/2D COMPLETE Patient: ANGIE SERRA Exam Date: 07/26/2021 : 1965 Gender:F Ordering : DR PATTI VALDEZ . Admission #: [id number] Family : Order #: [id number] CLICK HERE TO VIEW EXAM ECHOCARDIOGRAM REPORT [...] Area(A4C): 24.60 cm2 Left Atrium Systolic Volume(A2C): 72712 mm3 Left Atrium Systolic Volume(A4C): 05352 mm3 Mitral Valve MV E to A Ratio: 0.70 Deceleration [place]: 3560 mm/s2 Mitral Valve A-Wave Peak Velocity: [...] M.D. on 07/27/2021 at 20:54 Normal [facility] PTT HEPARIN MONITORon 2021 aPTT Coag (Bld) [Time] 40.2 s Normal 39.5-54.[address] [facility] Comment on above: Performed By: #### C MREP #### [facility] [address] [place] [address] Dr. Argelia Baird aPTT Coag (Bld) [Time] 31.2 s Critically low 39.5-54.2 [facility] Comment on above: Result Comment: Test Repeated Critical Value Verified Performed By: #### P TTHEP #### [facility] [address] [place] [address] Dr. 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 Argelia Baird TROPONIN, HIGH SENSITIVITYon 07-26-2021 HSTROP 77.3 pg/mL Critically high 4.0-35.5 [facility] Comment on above: Result Comment: CUT- OFF POINTS HAVE BEEN ESTABLISHED BASED ON THE FOURTH UNIVERSAL DEFINITIONS OF MYOCARDIAL INFARCTION. THE UPPER REFERENCE LIMIT (URL) OF TROPONIN, DEFINED THE 99TH PERCENTILE OF cTnI DISTRIBUTION IN A REFERENCE POPULATION, HAS BEEN CONFIRMED THE DECISION THRESHOLD FOR [place] DIAGNOSIS. Performed By: #### C MREP #### [facility] [address] [place] [address] Dr. Argelia Baird BNPon 07-25-2021 Natriuretic peptide B (Bld) [Mass/Vol] 105.0 pg/mL Normal <=900.0 [facility] Comment on above: Performed By: #### B SPEED BELT SANDER, CMP, CMADM #### [facility] [address] [place] [address] Dr. Argelia Baird CARDIAC JAMES 3-6on 2 CK [Catalytic activity/Vol] 70 U/L Normal 30-135 [facility] Comment on above: Performed By: #### B SPEED BELT SANDER, CMP #### [facility] [address] [place] [address] Dr. Argelia Baird CK.MB [Mass/Vol] 1.63 ng/mL Normal <=2.37 [facility] Comment on above: Performed By: #### B SPEED BELT SANDER, CMP #### [facility] [address] [place] [address] Dr. Argelia Baird HSTROP 113.0 pg/mL Critically high 4.0-35.5 [facility] Comment on above: Result Comment: CUT- OFF POINTS HAVE BEEN ESTABLISHED BASED ON THE FOURTH UNIVERSAL DEFINITIONS OF MYOCARDIAL INFARCTION. THE UPPER REFERENCE LIMIT (URL) OF TROPONIN, DEFINED THE 99TH PERCENTILE OF cTnI DISTRIBUTION IN A REFERENCE POPULATION, HAS BEEN CONFIRMED THE DECISION THRESHOLD FOR [place] DIAGNOSIS. TEST REPEATED. CRITICAL VALUE VERIFIED Performed By: #### B SPEED BELT SANDER, CMP #### [facility] [address] [address] [address] Argelia Baird CK [Catalytic activity/Vol] 299 U/L Critically high 30-135 [facility] Comment on above: Performed By: #### C MREP #### [facility] [address] [address] [address] Argelia Baird CK.MB [Mass/Vol] 1.59 ng/mL Normal <=2.37 [facility] Comment on above: Performed By: #### C MREP #### [facility] [address] [address] [address] Argelia Baird HSTROP 87.6 pg/mL Critically high 4.0-35.5 [facility] Comment on above: Result Comment: CUT- OFF POINTS HAVE BEEN ESTABLISHED BASED ON THE FOURTH UNIVERSAL DEFINITIONS OF MYOCARDIAL INFARCTION. THE UPPER REFERENCE LIMIT (URL) OF TROPONIN, DEFINED THE 99TH PERCENTILE OF cTnI DISTRIBUTION IN A REFERENCE POPULATION, HAS BEEN CONFIRMED THE DECISION THRESHOLD FOR [place] DIAGNOSIS. Performed By: #### C MREP #### [facility] [address] [address] [address] Argelia Baird CARDIAC JAMES ADMITon 022 CK [Catalytic activity/Vol] 72 U/L Normal 30-[address] [facility] Comment on above: Performed By: #### B SPEED BELT SANDER, CMP #### [facility] [address] [address] [address] Argelia ETIENNE.MB [Mass/Vol] 1.70 ng/mL Normal <=2.37 [facility] Comment on above: Performed By: #### B SPEED BELT SANDER, CMP #### [facility] [address] [address] [address] Areglia Baird HSTROP 71.8 pg/mL Critically high 4.0-35.5 [facility] Comment on above: Result Comment: CUT- OFF POINTS HAVE BEEN ESTABLISHED BASED ON THE FOURTH UNIVERSAL DEFINITIONS OF MYOCARDIAL INFARCTION. THE UPPER REFERENCE LIMIT (URL) OF TROPONIN, DEFINED THE 99TH PERCENTILE OF cTnI DISTRIBUTION IN A REFERENCE POPULATION, HAS BEEN CONFIRMED THE DECISION THRESHOLD FOR [place] DIAGNOSIS. Performed By: #### B SPEED BELT SANDER, CMP #### [facility] [address] [place] [address] Dr. Argelia Baird MAU 41.0 ng/mL Normal <=61.5 [facility] Comment on above: Performed By: #### B SPEED BELT SANDER, CMP #### [facility] [address] [place] [address] Dr. Argelia Baird CBC AUTO DIFFon 07-25-2021 BASO # 0.0 103/ul Normal 0.0-0.1 [facility] Comment on above: Performed By: #### B SPEED BELT SANDER, CMP #### [facility] [address] [place] [address] Dr. Argelia Baird Basophils/100 WBC (Bld) 0.3 % Normal 0.2-2.0 [facility] Comment on above: Performed By: #### B SPEED BELT SANDER, CMP #### [facility] [address] [place] [address] Dr. Argelia Baird EO # 0.4 103/ul Normal 0.0-0.7 [facility] Comment on above: Performed By: #### B SPEED BELT SANDER, CMP #### [facility] [address] [place] [address] Dr. Argelia Baird Eosinophils/100 WBC (Bld) 4.7 % Normal 0.9-7.0 [facility] Comment on above: Performed By: #### B SPEED BELT SANDER, CMP #### [facility] [address] [place] [address] Dr. Argelia Baird Erythrocyte distribution width (RBC) [Ratio] 14.3 % Normal 11.0-15.0 [facility] Comment on above: Performed By: #### B SPEED BELT SANDER, CMP #### [facility] [address] [place] [address] Dr. Argelia Baird Hematocrit (Bld) [Volume fraction] 38.9 % Normal 36.0-48.0 [facility] Comment on above: Performed By: #### B SPEED BELT SANDER, CMP #### [facility] [address] [place] [address] Dr. Argelia Baird Hemoglobin (Bld) [Mass/Vol] 12.2 g/dL Normal 12.0-16.0 [facility] Comment on above: Performed By: #### B SPEED BELT SANDER, CMP #### [facility] [address] [address] [address] Argelia Baird IG # 0.04 10e3/ul Critically high 0.00-0.03 [facility] Comment on above: Performed By: #### B SPEED BELT SANDER, CMP #### [facility] [address] [address] [address] Argelia Baird IG % 0.5 % Normal 0.0-0.[address] [facility] Comment on above: Performed By: #### B SPEED BELT SANDER, CMP #### [facility] [address] [address] [address] Argelia Baird LYMPH # 1.2 103/ul Normal 1.2-3.[address] [facility] Comment on above: Performed By: #### B SPEED BELT SANDER, CMP #### [facility] [address] [place] [address] Dr. Argelia Baird Lymphocytes/100 WBC (Bld) 13.3 % Critically low 20.5-60.[address] [facility] Comment on above: Performed By: #### B SPEED BELT SANDER, CMP #### [facility] [address] [address] [address] Argelia Baird MANUAL DIFF REQ NO Normal [facility] Comment on above: Performed By: #### B SPEED BELT SANDER, CMP #### [facility] [address] [address] [address] Argelia Baird MCH (RBC) [Entitic mass] 29.8 pg Normal 26.7-34.[address] [facility] Comment on above: Performed By: #### B SPEED BELT SANDER, CMP #### [facility] [address] [address] [address] Argelia Baird MCHC (RBC) [Mass/Vol] 31.4 g/dL Normal 29.9-35.[address] [facility] Comment on above: Performed By: #### B SPEED BELT SANDER, CMP #### [facility] [address] [address] [address] Argelia Baird MCV (RBC) [Entitic vol] 95.1 fL Normal 81.0-99.[address] [facility] Comment on above: Performed By: #### B SPEED BELT SANDER, CMP #### [facility] [address] [address] [address] Argelia Baird MONO # 0.8 103/ul Normal 0.3-0.[address] [facility] Comment on above: Performed By: #### B SPEED BELT SANDER, CMP #### [facility] [address] [address] [address] Argelia Baird Monocytes/100 WBC (Bld) 9.4 % Normal 1.7-12.[address] [facility] Comment on above: Performed By: #### B SPEED BELT SANDER, CMP #### [facility] [address] [place] [address] Dr. Argelia Baird NEUT # 6.2 103/ul Normal 1.4-6.[address] [facility] Comment on above: Performed By: #### B SPEED BELT SANDER, CMP #### [facility] [address] [place] [address] Dr. Argelia Baird Neutrophils/100 WBC (Bld) 71.8 % Normal 43.0-75.[address] [facility] Comment on above: Performed By: #### B SPEED BELT SANDER, CMP #### [facility] [address] [place] [address] Dr. Argelia Baird Platelet mean volume (Bld) [Entitic vol] 9.1 fL Critically low 9.5-13.[address] [facility] Comment on above: Performed By: #### B SPEED BELT SANDER, CMP #### [facility] [address] [place] [address] Dr. Argelia Baird PLT 310 103/ul Normal 150-450 [facility] Comment on above: Performed By: #### B SPEED BELT SANDER, CMP #### [facility] [address] [place] [address] Dr. Argelia Baird RBC 4.09 106/ul Critically low 4.20-5.40 [facility] Comment on above: Performed By: #### B SPEED BELT SANDER, CMP #### [facility] [address] [place] [address] Dr. Argelia Baird WBC 8.7 103/ul Normal 4.0-11.0 [facility] Comment on above: Performed By: #### B SPEED BELT SANDER, CMP #### [facility] [address] [place], [place] [address] Dr. Argelia Baird Covid-19 PCR ([facility]on SARS-CoV-2 (COVID-19) RNA FOX+probe Ql (Unsp spec) Not detected Normal NOT DETECTED [facility] Comment on above: Result Comment: This test is not yet approved or cleared by the [place] FDA. When there are no FDA-approved or cleared tests available, and other criteria are met, FDA can make tests available under an emergency access mechanism called an Emergency Use Authorization (EUA). The EUA for this test is supported by the [place] of Health and Human Service's (HHS's) declaration [...] consistent with SARS-CoV-2. Performed By: #### B SPEED BELT SANDER, CMP #### [facility] [address] [place], [place] [address] Dr. Argelia Baird D-DIMERon 07-25-2021 D-DIMER 0.36 mg/L FEU Normal 0.19-0.50 [facility] Comment on above: Performed By: #### D DIM #### [facility] [address] [place], [place] [address] Dr. Argelia Baird D-DIMER COMMENTS SEE BELOW Normal [facility] Comment on above: Result Comment: Incr [...] hospitalization. Performed By: #### D DIM #### [facility] [address] [address] [address] Argelia Baird PROF 14(COMP METB)on 022 Albumin [Mass/Vol] 3.4 g/dL Critically low 3.5-5.0 Th [facility] Comment on above: Performed By: #### B SPEED BELT SANDER, CMP, CMADM #### [facility] [address] [address] [address] Argelia Baird Albumin/Globulin [Mass ratio] 1.0 {ratio} Normal [facility] Comment on above: Performed By: #### B SPEED BELT SANDER, CMP, CMADM #### [facility] [address] [place] [address] Dr. Argelia Baird ALP [Catalytic activity/Vol] 104 U/L Normal 38-[address] [facility] Comment on above: Performed By: #### B SPEED BELT SANDER, CMP, CMADM #### [facility] [address] [place] [address] Dr. Argelia Baird ALT [Catalytic activity/Vol] 29 U/L Normal 9-[address] [facility] Comment on above: Performed By: #### B SPEED BELT SANDER, CMP, CMADM #### [facility] [address] [place] [address] Dr. Argelia Baird Anion gap [Moles/Vol] 12.1 mmol/L Normal [facility] Comment on above: Performed By: #### B SPEED BELT SANDER, CMP, CMADM #### [facility] [address] [place] [address] Dr. Argelia Baird AST [Catalytic activity/Vol] 15 U/L Normal 14-[address] [facility] Comment on above: Performed By: #### B SPEED BELT SANDER, CMP, CMADM #### [facility] [address] [place] [address] Dr. Argelia Baird Bilirubin [Mass/Vol] 0.5 mg/dL Normal 0.2-1.[address] [facility] Comment on above: Performed By: #### B SPEED BELT SANDER, CMP, CMADM #### [facility] [address] [address] [address] Argelia Baird Calcium [Mass/Vol] 8.4 mg/dL Normal 8.4-10.2 [facility] Comment on above: Performed By: #### B SPEED BELT SANDER, CMP, CMADM #### [facility] [address] [address] [address] Argelia Baird Chloride [Moles/Vol] 104 mmol/L Normal 98-[address] [facility] Comment on above: Performed By: #### B SPEED BELT SANDER, CMP, CMADM #### [facility] [address] [address] [address] Argelia Baird CO2 [Moles/Vol] 25.7 mmol/L Normal 22.0-30.0 [facility] Comment on above: Performed By: #### B SPEED BELT SANDER, CMP, CMADM #### [facility] [address] [place] [address] Dr. Argelia Baird Creatinine [Mass/Vol] 0.87 mg/dL Normal 0.52-1.[address] [facility] Comment on above: Performed By: #### B SPEED BELT SANDER, CMP, CMADM #### [facility] [address] [place] [address] Dr. Argelia Baird EGFR-AF GABONESE >60 Normal >=60 [facility] Comment on above: Performed By: #### B SPEED BELT SANDER, CMP, CMADM #### [facility] [address] [place] [address] Dr. Argelia Baird EGFR-NON AF GABONESE >60 Normal >=[address] [facility] Comment on above: Performed By: #### B SPEED BELT SANDER, CMP, CMADM #### [facility] [address] [address] [address] Argelia Baird Globulin (S) [Mass/Vol] 3.4 g/dL Normal [facility] Comment on above: Performed By: #### B SPEED BELT SANDER, CMP, CMADM #### [facility] [address] [place] [address] Dr. Argelia Baird Glucose [Mass/Vol] 188 mg/dL Critically high 74-106 [facility] Comment on above: Performed By: #### B SPEED BELT SANDER, CMP, CMADM #### [facility] [address] [address] [address] Argelia Baird Potassium [Moles/Vol] 3.8 mmol/L Normal 3.4-5.[address] [facility] Comment on above: Performed By: #### B SPEED BELT SANDER, CMP, CMADM #### [facility] [address] [place] [address] Dr. Argelia Baird Protein [Mass/Vol] 6.8 g/dL Normal 6.1-8.2 [facility] Comment on above: Performed By: #### B SPEED BELT SANDER, CMP, CMADM #### [facility] [address] [place] [address] Dr. Argelia Baird Sodium [Moles/Vol] 138 mmol/L Normal 137-145 [facility] Comment on above: Performed By: #### B SPEED BELT SANDER, CMP, CMADM #### [facility] [address] [place] [address] Dr. Argelia Baird Urea nitrogen [Mass/Vol] 28.0 mg/dL Critically high 7.0-17.[address] [facility] Comment on above: Performed By: #### B SPEED BELT SANDER, CMP, CMADM #### [facility] [address] [place] [address] Dr. Argelia Baird Urea nitrogen/Creatinine [Mass ratio] 32.2 mg/mg Normal [facility] Comment on above: Performed By: #### B SPEED BELT SANDER, CMP, CMADM #### [facility] [address] [place] [address] Dr. Argelia Baird PROTIMEon 07-25-2021 INR Coag (PPP) [Relative time] 0.95 {INR} Normal [facility] Comment on above: Performed By: #### C VDTBH #### [facility] [address] [place] [address] Dr. Argelia Baird INR GUIDELINES SEE BELOW Normal [facility] Comment on above: Result Comment: MIGUEL RED INR: 2.0 - 3.0 CONDITIONS NOT LISTED BELOW 2.5 - 3.5 FOR PROSTHETIC HEART VALVE REPLACEMENT 2.5 - 3.5 RECURRENT THROMBOSIS Performed By: #### C VDTBH #### [facility] [address] [place] [address] Dr. Argelia Baird PT Coag (PPP) [Time] 10.3 s Normal 9.0-11.[address] [facility] Comment on above: Performed By: #### C VDTBH #### [facility] [address] [place] [address] Dr. Argelia Baird PTTon 07-25-2021 aPTT Coag (Bld) [Time] 24.8 s Normal 22.3-36.2 [facility] Comment on above: Performed By: #### C VDTBH #### [facility] [address] [place] [address] Dr. Argelia Baird TROPONIN, HIGH SENSITIVITYon 07-25-2021 HSTROP 86.7 pg/mL Critically high 4.0-35.5 [facility] Comment on above: Result Comment: CUT- OFF POINTS HAVE BEEN ESTABLISHED BASED ON THE FOURTH UNIVERSAL DEFINITIONS OF MYOCARDIAL INFARCTION. THE UPPER REFERENCE LIMIT (URL) OF TROPONIN, DEFINED THE 99TH PERCENTILE OF cTnI DISTRIBUTION IN A REFERENCE POPULATION, HAS BEEN CONFIRMED THE DECISION THRESHOLD FOR [place] DIAGNOSIS. Performed By: #### B SPEED BELT SANDER, CMP #### [facility] [address] [place] [address] Dr. Argelia Baird XR CHEST 1 Von [...] by: AUNDREA RITTER Date: 2021-07-25 13:02 Normal [facility] CREATININEon 06-01-2021 Creatinine [Mass/Vol] 0.90 mg/dL Normal 0.52-1.[address] [facility] Comment on above: Performed By: #### C ROBERTO CARLOS #### [facility] [address] [place], [place] [address] Dr. Argelia Baird EGFR-AF GABONESE >60 Normal >=60 [facility] Comment on above: Performed By: #### C ROBERTO CARLOS #### [facility] [address] [place], [place] [address] Dr. Argelia Baird EGFR-NON AF GABONESE >60 Normal >=[address] [facility] Comment on above: Performed By: #### C ROBERTO CARLOS #### [facility] [address] [place], [place] [address] CHEST W CONon [...] by: YENNY HOLMAN Date: 2021-06-01 10:[address] [facility] NURSING PROGon 07-01-2020 NURSING PROG HNO ID: [id number] Author: Sally (Rn) AUGUSTUS Johnson Service: Nursing Author Type: Registered [...] None Electronically Signed By: Sally Johnson RN [facility] NURSING PROG HNO ID: [id number] Author: Reena BillingsleyRn) AUGUSTUS Burk Service: Nursing [...] REFERRAL (RECOMMENDATION): None Electronically Signed By: Reena Burk RN [facility] HISTORY PHYSICALon HISTORY PHYSICAL HNO ID: [id number] Author: Salbador Hernandez Service: General Surgery Author [...] DATE: June 24, 2020 TIME: 7:47 AM [facility] HOSPon 06-24-2020 HOSP Patient:Angie Serra MRN: [...] Aundrea Flores, PhD 06/28/2020 7:24 AM Signed [facility] BARIATRIC SURGERY BEHAVIORAL HEALTH EVALUATION DATE OF SERVICE: June 27, 2020 TIME OF SERVICE: 8 am COST CENTER: [facility] CPT CODE: [id number] Virtual PSYCH DIAGNOSTIC EVAL 76501 Brief Emotional/Behavioral Assessment with scoring/documentation BILLING CODE: ENDO PSYL MAIN Sandra SESSION #: 1 Due to the [facility] and the need for ongoing mental health services, the following visit was completed virtually or by phone to reduce the risk of COVID-19 exposure. If this was the first visit not conducted [id number]-faxy, consent to virtual visits was provided verbally and information was provided via Andela if available. If LinguaSyshart was not available, a copy of the [...] The patient has 2 children, including 36D ([place]), 33 S 15 minutes from patient. Patient [...] strategies have been effective. The patient notes congregation practice is: Non-practicing, used to be very congregation. The patient's cultural identity/ethnicity is: . LEISURE/EXERCISE [...] address unhealthy eating behaviors (To schedule with [facility] Best Start group call [phone]) *Follow up with psychology as an inpatient [...] any questions. Aundrea Flores, PhD, RD, LD, [facility], Psychologist BEHAVIORAL HEALTH BARIATRIC EVALUATION SUMMARY PATIENT [...] Barnard RN June 23, 2020 1:13 PM Normal [facility] NURSING PROGon 06-24-2020 NURSING PROG HNO ID: [id number] Author: Vanessa BillingsleyRn) AUGUSTUS Lopez Service: ? Author Type: Registered [...] None Electronically Signed By: Vanessa Lopez RN [facility] PT EDon 06-24-2020 PT ED HNO ID: [id number] Author: Janina BillingsleyRn) AUGUSTUS Gillette Service: Nursing [...] None Electronically Signed By: Janina Gillette RN [facility] SURGICAL PATHOLOGYon 021 SURGICAL PATHOLOGY ADDENDUM PRESENT Specimen originated from [facility] Specimen #: [id number] Submitting Physician: Salbador Hernandez M.D. FINAL DIAGNOSIS Stomach, biopsy - Mild chronic inactive gastritis with reactive epithelial changes; see comment. Pete 06/27/2020 COMMENT H. pylori immunostain is pending; [...] in-situ hybridization tests have been determined by [facility]'s [facility] Pathology and Laboratory Medicine [place] [facility] in a manner consistent with CLIA requirements. One or more of these tests have not been cleared or approved by the FDA. [facility] is regulated under CLIA as qualified to perform high-complexity testing. These tests are used for clinical purposes. They should not be regarded as investigational or for research. Pete 06/28/2020 Addendum Pathologist: Jose Mcelroy M.D. Electronic Signature CLINICAL DATA PRE- OP EXAM; EGD; GASTRITIS; COLD BIOPSY GROSS DESCRIPTION A. Received in formalin are multiple pieces of roque, soft tissue aggregating to 1.5 x 0.2 x 0.2 cm. Totally submitted in one cassette. Gross examination performed at [facility], [address] [place] [address] EJ 06/24/2020 7:11:44 PM Date of Report: 06/27/2020 Date of Procedure: 06/24/2020 Date of Receipt: 06/24/2020 Submitted by: Salbador Hernandez M.D. Location: ENDO Diagnostic interpretation performed at [facility], [address] [place] [address]. CLIA Number: [id number] [facility] HOSP 06-10-2020 [facility] Patient:Angie Serra MRN: Height:No patient height recorded [...] for the following basenames: K,HCT Progress Notes ([facility]): Rhonda Barnard RN, RN 06/23/2020 1:13 PM Signed BMI SPECIALTY CARE COORDINATION TELEPHONE ENCOUNTER Returning patient call. Patient switching surgeons due to insurance. Per Dr. Morgan advised patient to keep EGD appointment scheduled for 06/24/20. Patient verbalized understanding and confirmed upcoming BMI Appointments. Rhonda Barnard RN June 23, 2020 1:13 PM Progress Notes ([facility]): Salbador Hernandez MD 06/09/2020 2:50 [...] If you do not have a responsible regional driver (family member or friend) with you to take you home, your exam cannot be done with sedation and will be cancelled. Please bring a list of all of your current medications, including any Nnio-vbn-Fzaxljm medications with you. Medications If you take [...] hours before your exam. 3 04/2019 Normal [facility] Vital Signs Date Time Vital Sign Value Performing Clinician Darlene rossi 06-18-2023 11:21-0500 Body height 165.1 cm NA Finet MD Work Phone: [facility] 06-18-2023 11:21-0500 Body weight 77.25 kg ANTONIETTA Snider MD Work Phone: [facility] 06-18-2023 11:21-0500 Diastolic blood pressure 63 mm[Hg] ANTONIETTA Snider MD Work Phone: [facility] 06-18-2023 11:21-0500 Heart rate 82 /min ANTONIETTA Snider MD Work Phone: [facility] 06-18-2023 11:21-0500 SaO2% (BldA) [Mass fraction] 96 % ANTONIETTA Snider MD Work Phone: [facility] 06-18-2023 11:21-0500 Systolic blood pressure 102 mm[Hg] ANTONIETTA Snider MD Work Phone: [facility] 03-16-2022 10:35-0400 Body weight [address] Work Phone: [facility] 01-09-2022 13:17-0400 Body height 165.[address] Work Phone: [facility] 01-09-2022 13:17-0400 Body weight 97.[address] Work Phone: [facility] 11-22-2021 17:00-0400 Body weight 114.76 kg Fellow Main Work Phone: [facility] 10-26-2021 09:52-0400 Body height 165.1 cm ANTONIETTA Snider MD Work Phone: [facility] 10-26-2021 09:52-0400 Body weight 118.98 kg ANTONIETTA Snider MD Work Phone: [facility] 10-26-2021 09:52-0400 Diastolic blood pressure 64 mm[Hg] ANTONIETTA Snider MD Work Phone: [facility] 10-26-2021 09:52-0400 Heart rate 79 /min ANTONIETTA Snider MD Work Phone: [facility] 10-26-2021 09:52-0400 SaO2% (BldA) [Mass fraction] 93 % ANTONIETTA Snider MD Work Phone: [facility] 10-26-2021 09:52-0400 Systolic blood pressure 118 mm[Hg] ANTONIETTA Snider MD Work Phone: [facility] 10-26-2021 08:23-0400 Body weight 113.[address] Work Phone: [facility] 09-25-2021 11:46-0400 Body height 165.[address] [facility] 09-25-2021 11:46-0400 Body weight 118.[address] [facility] 09-14-2021 09:03-0400 Diastolic blood pressure 69 mm[Hg] ANTONIETTA Snider MD Work Phone: [facility] 09-14-2021 09:03-0400 Systolic blood pressure 155 mm[Hg] ANTONIETTA Snider MD Work Phone: [facility] 09-14-2021 09:00-0400 Body height 165.1 cm ANTONIETTA Snider MD Work Phone: [facility] 09-14-2021 09:00-0400 Body weight 121.7 kg ANTONIETTA Snider MD Work Phone: [facility] 09-14-2021 09:00-0400 Heart rate 78 /min ANTONIETTA Snider MD Work Phone: [facility] 09-14-2021 09:00-0400 SaO2% (BldA) [Mass fraction] 97 % ANTONIETTA Snider MD Work Phone: [facility] 08-25-2021 11:44-0400 Body height 165.[address] [facility] 08-25-2021 11:44-0400 Body weight 119.[address] [facility] 08-07-2021 14:51-0400 Body height 165.1 cm Reed Leon MD Work Phone: [facility] 08-07-2021 14:51-0400 Body weight 121.56 kg Reed Leon MD Work Phone: [facility] 08-07-2021 14:51-0400 Diastolic blood pressure 88 mm[Hg] Reed Leon MD Work Phone: [facility] 08-07-2021 14:51-0400 Heart rate 98 /min Reed Leon MD Work Phone: [facility] 08-07-2021 14:51-0400 Respiratory rate 12 /min Reed Leon MD Work Phone: [facility] 08-07-2021 14:51-0400 SaO2% (BldA) [Mass fraction] 94 % Reed Leon MD Work Phone: [facility] 08-07-2021 14:51-0400 Systolic blood pressure 162 mm[Hg] Reed Leon MD Work Phone: [facility] Encounters Encounter Date Encounter Type Care Provider Facility Start: 11-10-2023 Refill Johanne ma MD Work Phone: Cardiology Comment on above: Refill Request Start: 06-18-2023 Nursing evaluation o f patient and report [facility] Research Coordinator Cardiology Comment on above: Research subject (Pr imary Dx) Start: 06-18-2023 Patient entered into trial [facility] Research Coordinator [facility] Start: 06-18-2023 End: 06-18-2023 Patient encounter procedure Johanne Snider MD Work Phone: Cardiology Comment on above: Heart failure with p reserved ejection fraction, unspecified HF chronicity (HCC) (Primary Dx); Coronary artery disease involving [place] coronary artery of [place] heart, unspecified whether angina present; Primary hypertension; Mixed hyperlipidemia; Obesity, Class III, BMI 40-49.9 (morbid obesity) ([facility]); S/P drug eluting coronary stent placement; Type 2 diabetes mellitus with hyperglycemia, with long-term current use of insulin ([facility]); Gastroesophageal reflux disease without esophagitis Start: 06-18-2023 End: 06-18-2023 ambulatory Johanne SNIDER Facility:[facility] Start: 12-27-2022 Refill Johanne ma MD Work Phone: Cardiology Comment on above: Rx Refills Start: 12-26-2022 Refill Johanne ma MD Work Phone: Cardiology Comment on above: Rx Refills Start: 12-14-2022 End: 12-14-2022 ambulatory Johanne SNIDER Facility:[facility] Start: 07-30-2022 [facility] Work Phone: Neurology Comment on above: cmn Start: 07-12-2022 [facility] Work Phone: Neurology Comment on above: CMN Start: 03-16-2022 End: 03-16-[address] Work Phone: General Surgery Comment on above: BMI 30.0-30.9,adult (Primary Dx); Dietary counseling Start: 03-16-2022 End: 03-16-2022 Telemedicine consultation with patient Delmi Blue RD Work Phone: [facility] Start: 02-18-2022 Refill Reed aponte MD Work Phone: Cardiology Comment on above: Refill Request Start: 01-29-2022 Encounter for genera l adult medical examination without abnormal findings DR PATTI VALDEZ [facility] Start: 01-09-2022 End: 01-09-2022 ambulatory Lisbet Hernandez [...] with patient Fellow Gurinder Main Work Phone: [facility] Start: 11-21-2021 Telephone encounter Kiah Cesar [...] with patient Thad Morgan MD Work Phone: [facility] Start: 11-10-2021 Telephone encounter Rhonda Barnard RN General Surgery Comment on above: Preparations For Singh clarence Start: 11-09-2021 Telephone encounter Rhonda Barnard RN General Surgery Comment on above: Schedule Surgery Counseling Start: 11-08-2021 Admission to same [facility] Rhonda Barnard RN General Surgery Comment on above: Surgery Start: 11-08-2021 E-mail encounter fro m caregiver Rhonda Barnard RN [facility] Start: 11-08-2021 Telephone encounter Rhonda Barnard RN General Surgery Comment on above: BMI Follow Up Start: 10-26-2021 End: 10-26-2021 Patient encounter gordon Snider MD Work Phone: Cardiology Comment on above: Heart failure with p reserved ejection fraction, unspecified HF chronicity (HCC) (Primary Dx); Primary hypertension; Mixed hyperlipidemia; Obesity, Class III, BMI 40-49.9 (morbid obesity) (HCC); Coronary artery disease involving [place] coronary artery of [place] heart, unspecified whether angina present; S/P drug eluting coronary stent placement; Type 2 diabetes mellitus with hyperglycemia, with long-term current use of insulin (HCC); Gastroesophageal reflux disease without esophagitis Start: 10-26-2021 End: 10-26-[address] Work Phone: General Surgery Comment on above: BMI 40.0-44.9, adult (HCC) (Primary Dx); Dietary counseling Start: 10-26-2021 End: 10-26-2021 Telemedicine consultation with patient Delmi Blue YESENIA Work Phone: [facility] Start: 10-24-2021 End: 10-24-2021 ambulatory Soo Vyas SENIOR TAX ACCOUNTANT.BLOGS MANAGER Work Phone: Neurology Comment on above: RAYMUNDO (obstructive sle ep apnea) (Primary Dx); Vitamin D deficiency Start: 10-24-2021 End: 10-24-2021 Telemedicine consultation with patient Soo Vyas SENIOR TAX ACCOUNTANT.BLOGS MANAGER Work Phone: [facility] Start: 10-20-2021 ambulatory Reed aponte MD Work Phone: Cardiology Comment on above: Entresto Start: 10-05-2021 End: 10-05-2021 ambulatory Reed Leon MD Work Phone: Cardiology Comment on above: Heart failure with p reserved ejection fraction, unspecified HF chronicity (HCC) (Primary Dx) Start: 10-05-2021 End: 10-05-2021 Telemedicine consultation with patient Reed Leon MD Work Phone: [facility] Start: 09-28-2021 End: 09-29-[address] PATTI VADLEZ Facility: Start: 09-25-2021 End: 09-25-[address] General Surgery Comment on above: Diabetes mellitus ty pe 2 in obese (HCC) (Primary Dx); Dietary counseling and surveillance Start: 09-25-2021 End: 09-25-2021 Telemedicine consultation with patient Danuta Fuentes RD [facility] Start: 09-20-2021 Telephone encounter Johanne Snider [...] (morbid obesity) (HCC); Coronary artery disease involving [place] coronary artery of [place] heart, unspecified whether angina present; S/P drug eluting coronary stent placement; Type 2 diabetes mellitus with hyperglycemia, with long-term current use of insulin (HCC); Gastroesophageal reflux disease without esophagitis Start: 08-25-2021 End: 08-25-[address] General Surgery Comment on above: Diabetes mellitus ty pe 2 in obese (HCC) (Primary Dx); Dietary counseling and surveillance Start: 08-25-2021 End: 08-25-2021 Telemedicine consultation with patient Danuta Fuentes RD [facility] Start: 08-18-2021 Telephone encounter Evangelist Lepe RN NOC Comment on above: Follow Up Phone Call [...] Speci men Type: BLOOD SPECIMEN Ordering Facility: [facility] Address: [address] [place] [address] Performed By: #### T [id number] #### [facility] CLIA [id number] [address] [place] [address] Start: 10-19-2021 Adult depression screening assessment [...] Treatment Date Care Activity Detail Author Start: 06-18-2024 BP Controlled (<130/80) BP Controlle d (<130/80) [facility] Start: 12-15-2023 BP CONTROLLED (<130/80) BP CONTROLLE D (<130/80) [facility] Start: 2023 RSV Vaccine (1 - 1-d ose 60+ series) RSV Vaccine (1 - 1-dose 60+ series) [facility] Start: 05-20-2023 Behavioral Health Screening Behavioral Health Screening [facility] Start: 05-20-2023 Depression Assessment [facility] Start: 01-18-2023 Influenza vaccination INFLUENZA (#1) [facility] Start: 12-11-2022 Adult depression screening assessment DEPRESSION SCREENING [facility] Start: 11-13-2022 BP CONTROLLED (<130/80) BP CONTROLLE D (<130/80) [facility] Start: 10-26-2022 BP CONTROLLED (<130/80) BP CONTROLLE D (<130/80) [facility] Start: 10-26-2022 Hepatitis B surface antibody level LDL CHOLESTEROL [facility] Start: 10-19-2022 Adult depression screening assessment DEPRESSION SCREENING [facility] Start: 09-07-2022 Adult depression screening assessment DEPRESSION SCREENING [facility] Start: 08-10-2022 PNEUMOCOCCAL (2 - PCV) PNEUMOCOCCAL (2 - PCV) [facility] Start: 08-10-2022 Pneumococcal vaccination Pneumococcal Vaccine (2 of 2 - PCV) [facility] Start: 05-20-2022 [facility] Start: 02-15-2022 Hepatitis B surface antibody level LDL CHOLESTEROL [facility] Start: 02-13-2022 Hemoglobin A1c measurement HbA1C [facility] Start: 02-13-2022 Hemoglobin A1c/Hemoglobin.total in Blood HBA1C [facility] Start: 01-18-2022 Influenza vaccination INFLUENZA (#1) [facility] Start: 12-08-2021 COVID-19 VACCINE (4 - Booster for Pfizer series) COVID-19 VACCINE (4 - Booster for Pfizer series) [facility] Start: 11-08-2021 Hemoglobin A1c/Hemoglobin.total in Blood HBA1C [facility] Start: 10-24-2021 End: 12-24-2021 VITAMIN D 25 HYDROXY VITAMIN D 25 HYDROXY Lab Routine Vitamin D deficiency Expected: 10/24/2021, Expires: 12/24/2021 [facility] Work Phone: Comment on above: Expected: 10/24/2021 , Expires: 12/24/2021 Start: 10-03-2021 COVID-19 VACCINE (4 - Booster for Pfizer series) COVID-19 VACCINE (4 - Booster for Pfizer series) [facility] Start: 10-03-2021 COVID-19 VACCINE (4 - Pfizer series) COVID-19 VACCINE (4 - Pfizer series) [facility] Start: 09-14-2021 End: 11-14-2021 Basic metabolic 2000 panel - Serum or Plasma BASIC METABOLIC PNL Lab Routine Acute on chronic heart failure with preserved ejection fraction (HCC) Coronary artery disease involving [place] coronary artery of [place] heart, unspecified whether angina present S/P drug eluting coronary stent placement Obesity, Class III, BMI 40-49.9 (morbid obesity) (HCC) Type 2 diabetes mellitus with hyperglycemia, with long-term current use of insulin ([facility]) Primary hypertension Mixed hyperlipidemia Gastroesophageal reflux disease without esophagitis Expected: 09/14/2021, Expires: 11/14/2021 [facility] Work Phone: Comment on above: Expected: 09/14/2021 , Expires: 11/14/2021 Start: 09-14-2021 End: 11-14-2021 LIPID PANEL BASIC LIPID PANEL BASIC Lab Routine Acute on chronic heart failure with preserved ejection fraction (HCC) Coronary artery disease involving [place] coronary artery of [place] heart, unspecified whether angina present S/P drug eluting coronary stent placement Obesity, Class III, BMI 40-49.9 (morbid obesity) (HCC) Type 2 diabetes mellitus with hyperglycemia, with long-term current use of insulin ([facility]) Primary hypertension Mixed hyperlipidemia Gastroesophageal reflux disease without esophagitis Expected: 09/14/2021, Expires: 11/14/2021 [facility] Work Phone: Comment on above: Expected: 09/14/2021 , Expires: 11/14/2021 Start: 09-14-2021 End: 11-14-2021 Natriuretic peptide.B prohormone N-Terminal [Mass/volume] in Serum or Plasma NT PRO BNP Lab Routine Acute on chronic heart failure with preserved ejection fraction (HCC) Coronary artery disease involving [place] coronary artery of [place] heart, unspecified whether angina present S/P drug eluting coronary stent placement Obesity, Class III, BMI 40-49.9 (morbid obesity) (HCC) Type 2 diabetes mellitus with hyperglycemia, with long-term current use of insulin (HCC) Primary hypertension Mixed hyperlipidemia Gastroesophageal reflux disease without esophagitis Expected: 09/14/2021, Expires: 11/14/2021 [facility] Work Phone: Comment on above: Expected: 09/14/2021 , Expires: 11/14/2021 Start: 07-01-2021 Colonoscopy COLONOSCOPY [facility] Start: 07-01-2021 COLORECTAL CANCER SCREENING COLORECTAL CANCER SCREENING [facility] Start: 07-01-2021 Screening for malign ant neoplasm of colon [facility] Start: 06-24-2021 Adult depression screening assessment DEPRESSION SCREENING [facility] Start: 05-20-2021 DEPRESSION ASSESSMENT DEPRESSION ASS ESSMENT [facility] Start: 2013 SHINGRIX VACCINE (1 of 2) SHINGRIX VACCINE (1 of 2) [facility] Start: 2008 COLOGUARD (FIT-DNA) COLOGUARD (FIT-D NA) [facility] Start: [address] COLONOGRAPHY [facility] Start: 2008 FECAL OCCULT BLOOD FECAL OCCULT BLOO D [facility] Start: 2008 Screening for malign ant neoplasm of colon [facility] Start: 2008 SIGMOIDOSCOPY SIGMOIDOSCOPY [facility] Start: 2003 Mammography MAMMOGRAM [facility] Start: 2003 Screening for malign ant neoplasm of breast Mammogram Screening [facility] Start: 1993 HPV TESTING HPV TESTING [facility] Start: 1993 Screening for malign ant neoplasm of cervix HPV Testing [facility] Start: 1984 PAP TESTING PAP TESTING [facility] Start: 1984 Screening for malign ant neoplasm of cervix [facility] Start: 1982 HEPATITIS B (1 of 3 - Risk 3-dose series) HEPATITIS B (1 of 3 - Risk 3-dose series) [facility] Start: 1982 Urine microalbumin profile [facility] Start: 1981 ANNUAL PCP TEAM ALARM OPERATOR LAURY DISEASE VISIT ANNUAL PCP TEAM CHRONIC DISEASE VISIT [facility] Start: 1981 BP CONTROLLED (<130/80) BP CONTROLLE D (<130/80) [facility] Start: 1981 HEPATITIS C SCREEN[facility] Start: 1981 Hepatitis C screening Hepatitis C [facility] Start: 1981 HIV SCREENING HIV SCREENING [facility] Start: 1981 HIV screening HIV Screening [facility] Start: 1979 ONE PNEUMOVAX PRIOR TO AGE 65 ONE PNEUMOVAX PRIOR TO AGE 63 [facility] Start: 1973 3 comp foot exam completed DIABETIC FOOT EXAM [facility] Start: 1973 Diabetic foot examination Diabetic Foot Exam [facility] Start: 1973 Glaucoma screening Dilated Retinal E xam [facility] Start: 1973 Hepatitis B screening URINE AL BUMIN:CREATININE RATIO [facility] Start: 1973 Hepatitis C antibody , confirmatory test DILATED RETINAL EXAM [facility] Start: 1963 HEPATITIS B (1 of 3 - 3-dose series) HEPATITIS B (1 of 3 - 3-dose series) [facility] Immunizations Immunization Date Immunization Notes Care Provider Fa cili 08-10-2021 pneumococcal polysaccharide vaccine, 23 valent Paris Long MD Work Phone: [facility] 08-08-2021 COVID-19 vaccine, ag e 12+ yr (PFIZER-BIONTECH - HITCHCOCK TOP) Paris Long MD Work Phone: [facility] Payers Date Payer Category Payer Unknown [employer] PPO OOS [id number] 2022-Present [phone] [address] [place] [address] PPO [id number] 2022 Unknown [id number] 2020 Private Health Insurance [facility] [id number] 2020-Present [phone] [address] [place] [address] HMO [id number] 2020 Private Health Insurance [facility] [id number] 2020-Present [phone] [address] [place] [address] HMO [id number] 1963 Unknown [id number] 1963 Unknown [id number] 1963 Unknown [id number] 1963 Unknown [id number] 1963 Unknown [id number] 1963 Unknown [id number] 1963 Unknown [id number] 1963 Unknown [id number] 1959 Private Health Insurance [id number] Self-pay [id number] Social History Date Type Detail Facility Start: 07-14-2020 End: 06-18-2023 Tobacco smoking status NHIS Ex-smoker [facility] Work Phone: Start: 07-14-1969 End: 11-18-1983 History of tobacco use Current smoker [facility] Work Phone: Start: 06-08-2020 End: 07-14-2020 Cigarettes smoked current (pack per day) - Reported 0.5 [facility] Start: 07-14-2020 End: 06-18-2023 Tobacco use and exposure Smokeless tobacco non-user [facility] Work Phone: Start: 08-07-2021 End: 06-18-2023 Alcohol intake Current drinker of alcohol (finding) [facility] Start: 08-12-2020 History SDOH Alcohol Comment occasionally [facility] Start: 1965 Sex Assigned At Female [facility] Start: 07-28-2021 End: 11-14-2021 Exposure to SARS-CoV-2 (event) Not sure [facility] Start: 08-03-2021 End: 08-13-2021 Exposure to SARS-CoV-2 (event) Unable to assess [facility] Start: 07-14-1969 End: 11-18-1983 History of tobacco use Cigarette Smoker [facility] Work Phone: Start: 06-08-2020 End: 12-14-2022 Tobacco use panel [facility] Adult Depression Screening Assessment 0 [facility] Start: 06-02-2020 Gender identity Identifies as female gender (finding) [facility] Start: 06-02-2020 Sexual orientation Heterosexual (fin ding) [facility] Clinical Notes 08-07-2021 to 06-18-2023 Chung Wells - 06/18/2023 1:21 PM Johanne Flores MD - 06/18/2023 11:47 AM ESTTelephone Fredrick - Radha Morales - 12/27/2022 9:35 AM Eren Enriquez - 07/30/2022 3:27 PM EDT Note Date & Type Note Facility 06-18-2023 Note HNO ID: [id number] Author: ?, ?, ? Service: ? Author Type: ? Type: Progress Notes Filed: 10/14/2023 11:54 Note Text: DATE: June 18, 2023 PT. NAME: Angie Serra [facility]#: [id number] IRB # [id number] PROTOCOL: Novel Clinical Utility of Retinal Imaging in Patients with Heart Failure: A Fisher Study Visit: BASELINE 1. Pipeline Gang Supervisor and/or Research Nurse explained the protocol to the subject and family? Yes 2. Risks, benefits, alternative procedures explained? Yes 3. Reviewed HIPPA disclosure information with the subject? Yes 4. Follow-up requirements explained? Yes 5. Reviewed research related injuries and cost with subject? Yes 6. Subject asked appropriate questions and answers provided to the subject? Yes 7. Subject read and verbally understands informed consent? Yes 8. Subject was given a copy of the signed informed consent? Yes 9. Family present at the time of the consent: subject and spouse Consent signed date/time @ 11a 6 Minute Walk Test completed? Yes Distance Traveled: 1415 ft OCTA Imaging completed? Yes - pre and [id number] Urine Sample obtained? Yes Time: 1145a Blood draw complete according to protocol? Yes Time: 105p Butterfly used in Right antecubital area. Blood drawn with vacutainer and labs drawn per protocol. Butterfly removed after blood draw and secured with sterile gauze. Patient tolerated procedure well. Vital signs can be found in nurses note. ANALI Melo [facility] 06-18-2023 History of Present illness Narrative DATE: June 18, 2023 PT. NAME: Angie Serra [facility]#: [id number] IRB # [id number] PROTOCOL: Novel Clinical Utility of Retinal Imaging in Patients with Heart Failure: A Fisher Study Visit: BASELINE 1. Pipeline Gang Supervisor and/or Research Nurse explained the protocol to the subject and family? Yes 2. Risks, benefits, alternative procedures explained? Yes 3. Reviewed HIPPA disclosure information with the subject? Yes 4. Follow-up requirements explained? Yes 5. Reviewed research related injuries and cost with subject? Yes 6. Subject asked appropriate questions and answers provided to the subject? Yes 7. Subject read and verbally understands informed consent? Yes 8. Subject was given a copy of the signed informed consent? Yes 9. Family present at the time of the consent: subject and spouse Consent signed date/time @ 11a 6 Minute Walk Test completed? Yes Distance Traveled: 1415 ft OCTA Imaging completed? Yes - pre and [id number] Urine Sample obtained? Yes Time: 1145a Blood draw complete according to protocol? Yes Time: 105p Butterfly used in Right antecubital area. Blood drawn with vacutainer and labs drawn per protocol. Butterfly removed after blood draw and secured with sterile gauze. Patient tolerated procedure well. Vital signs can be found in nurses note. Robby Wells, 4 documented in this encounter [facility] 06-18-2023 Note HNO ID: [id number] Author: Jhoanne SNIDER MD Service: ? Author Type: Physician Type: Progress Notes Filed: 07/18/2023 00:15 Note Text: [facility] Nataly Watt Department of Cardiovascular Medicine [facility] Section of Heart Failure and Transplantation Medicine PATIENT Angie Serra [address] [place] [id number] [facility] PRIMARY CARE PROVIDER Patti Valdez MD [address] [place] [address] REFERRING PROVIDER Michael Maciel [address] [facility] [address] CHIEF COMPLAINT HFpEF HISTORY OF PRESENT ILLNESS Angie Serra is a pleasant 57 year old White female who comes to [facility] for evaluation and management of Consult. The patient has been referred by Michael Maciel MD; a copy of this note will be provided by way of shared medical record and/or via regular mail. The date of his first clinic visit with me is September 14, 2021. In summary, Angie Serra is a 56 y/o female from [place], [place] following up after hospitalization. Pt has [...] INTERVAL HISTORY Last visit's recommendations were: Will resume Aspirin 81 mg daily (enteric coated); she will derive life expectancy benefit with this medication given her coronary artery disease. Continue to follow all other prescribed medical therapies and recommendations. Return to clinic in 6 months for follow up with a metabolic exercise test. Since last's visit, the patient has been feeling very well. S/p bariatric surgery, weight has stabilized. On isosorbide, no longer having angina. No volume retention; improved MCCAIN. Improved BP control. Home SBP 110 - 130 mmHg, never gets below 90 mmHg. Home HR ranges 70 - 80 bpm, never falls below 60 bpm. Tolerating enteric-coated aspirin. Metabolic exercise stress test reviewed below. REVIEW OF SYSTEMS CONSTITUTIONAL: No unintentional weight [...] Esophagitis Diabetes Mellitus Type 2 in Obese Coronary Artery Disease Involving [place] Coronary Artery of [place] Heart S/P Drug Eluting Coronary Stent Placement Raymundo (Obstructive Sleep Apnea) Acute On Chronic Heart Failure With Preserved Ejection Fraction (Hcc) Heart Failure With Preserved Ejection Fraction (Hcc) Type 2 Diabetes Mellitus With Morbid Obesity (Hcc) Obesity CURRENT MEDICATIONS Cetirizine (ZYRTEC) 10 mg cap Take 1 capsule by mouth once daily. multivit-min/iron/folic acid/K (BARIATRIC MULTIVITAMINS ORAL) Take 1 tablet by mouth once daily. aspirin, enteric coated (ASPIR-81) 81 mg EC tablet Take 1 tablet by mouth once daily. sacubitril-valsartan (ENTRESTO) 24-26 mg tablet Take 1 tablet by mouth twice daily. carvedilol (COREG) 12.5 mg tablet Take 1 tablet by mouth twice daily with meals. ezetimibe (ZETIA) 10 mg tablet take 1 tablet by mouth once daily atorvastatin (LIPITOR) 80 mg tablet take 1 tablet by mouth once daily isosorbide mononitrate ER (IMDUR) 60 mg 24 hr tablet Take 60 mg by (more content not included)... [facility] 06-18-2023 History of Present illness Narrative Images from the original note were not included. [facility] Nataly Watt Department of Cardiovascular Medicine [facility] Section of Heart Failure and Transplantation Medicine PATIENT Angie Serra [address] [place] [address] [place] [address] REFERRING PROVIDER Michael Maciel [address] [facility] [address] CHIEF COMPLAINT HFpEF HISTORY OF PRESENT ILLNESS Angie Serra is a pleasant 57 year old White female who comes to [facility] for evaluation and management of Consult. The patient has been referred by Michael Maciel MD; a copy of this note will be provided by way of shared medical record and/or via regular mail. The date of his first clinic visit with me is September 14, 2021. In summary, Angie Serra is a 56 y/o female from [place], [place] following up after hospitalization. Pt has [...] INTERVAL HISTORY Last visit's recommendations were: Will resume Aspirin 81 mg daily (enteric coated); she will derive life expectancy benefit with this medication given her coronary artery disease. Continue to follow all other prescribed medical therapies and recommendations. Return to clinic in 6 months for follow up with a metabolic exercise test. Since last's visit, the patient has been feeling very well. S/p bariatric surgery, weight has stabilized. On isosorbide, no longer having angina. No volume retention; improved MCCAIN. Improved BP control. Home SBP 110 - 130 mmHg, never gets below 90 mmHg. Home HR ranges 70 - 80 bpm, never falls below 60 bpm. Tolerating enteric-coated aspirin. Metabolic exercise stress test reviewed below. REVIEW OF SYSTEMS CONSTITUTIONAL: No unintentional weight [...] Esophagitis Diabetes Mellitus Type 2 in Obese Coronary Artery Disease Involving [place] Coronary Artery of [place] Heart S/P Drug Eluting Coronary Stent Placement Raymundo (Obstructive Sleep Apnea) Acute On Chronic Heart Failure With Preserved Ejection Fraction (Hcc) Heart Failure With Preserved Ejection Fraction (Hcc) Type 2 Diabetes Mellitus With Morbid Obesity (Hcc) Obesity CURRENT MEDICATIONS Cetirizine (ZYRTEC) 10 mg cap Take 1 capsule by mouth once daily. multivit-min/iron/folic acid/K (BARIATRIC MULTIVITAMINS ORAL) Take 1 tablet by mouth once daily. aspirin, enteric coated (ASPIR-81) 81 mg EC tablet Take 1 tablet by mouth once daily. sacubitril-valsartan (ENTRESTO) 24-26 mg tablet Take 1 tablet by mouth twice daily. carvedilol (COREG) 12.5 mg tablet Take 1 tablet by mouth twice daily with meals. ezetimibe (ZETIA) 10 mg tablet take 1 tablet by mouth once daily atorvastatin (LIPITOR) 80 mg tablet take 1 tablet by mouth once daily isosorbide mononitrate ER (IMDUR) 60 mg 24 hr tablet Take 60 mg by mouth once daily. vitamin b complex capsule Take 1 capsule by mouth once daily. empagliflozin (JARDIANCE) 25 mg tablet Take 1 tablet by mouth daily with breakfast. CPAP Please Expedite for upcoming surgery. Settings 5 - 15 cm H2O, suitable mask per pt preference, chin strap, head gear, humidity, tubing, lifetime supplies. G47.[address] (PROTONIX) 40 mg tablet Take 1 tablet by mouth once daily. WELCHOL 625 mg tablet 1,875 mg once daily. PAST MEDICAL HISTORY PAST MEDICAL HISTORY [...] Social History Tobacco Use Smoking status: Former Packs/day: 0.50 Years: 2.00 Additional pack years: 0.00 Total pack years: 1.00 Types: Cigarettes Start date: 07/14/1969 Quit date: 11/1983 Years since quittin.6 Smokeless tobacco: Never Vaping Use Vaping Use: Never used Substance Use Topics Alcohol use: Yes Alcohol/week: 2.0 standard drinks of alcohol Types: 1 Glasses of wine, 1 Shots of liquor per week Comment: occasionally Drug use: Never FAMILY HISTORY [...] Five points is a clinically meaningful difference.) 12/11/2021 12/07/2022 06/14/2023 Physical T-Score 42.3 50.8 50.8 Mental T-Score 53.3 53.3 56 PHQ-9 12/11/2021 12/07/2022 06/14/2023 Score 6 4 2 KCCQ-12 Scores 10/19/2021 12/07/2022 06/14/2023 Physical Limitation Score 87.5 (Class I Heart Failure ) 100 (Class I Heart Failure ) 100 (Class I Heart Failure ) Symptom Frequency Score 75 (Class II Heart Failure ) 95.83 (Class I Heart Failure ) 95.83 (Class I Heart Failure ) Quality of Life Score 75 (Class II Heart Failure ) 87.5 (Class I Heart Failure) 100 (Class I Heart Failure) Social Limitation Score 83.33 (Class II Heart Failure) 100 (Class I Heart Failure) 100 (Class I Heart Failure) Overall Summary Score 80.21 (Class II Heart Failure ) 95.83 (Class I Heart Failure ) 98.96 (Class I Heart Failure ) PHYSICAL EXAMINATION BP 102/63 (BP Site: Right Arm) Pulse 82 Ht 165.1 cm (5' 5 ) Wt 77.2 kg (170 lb 4.8 oz) SpO2 96% BMI 28.34 kg/m CONSTITUTIONAL: Well appearing, in no acute [...] COMPLETE BLOOD COUNT WBC (k/uL) Date Value 11/16/2021 13.66 11/15/2021 16.56 11/13/2021 8.13 02/15/2021 7.71 10/06/2020 7.28 07/14/2020 9.30 RBC (m/uL) Date Value 11/16/2021 4.78 11/15/2021 5.07 11/13/2021 4.79 02/15/2021 4.57 10/06/2020 4.90 07/14/2020 4.78 Hemoglobin (g/dL) Date Value 11/16/2021 13.6 11/15/2021 14.3 11/13/2021 13.6 02/15/2021 13.7 10/06/2020 14.6 07/14/2020 14.7 Hematocrit (%) Date Value 11/16/2021 44.2 11/15/2021 46.6 11/13/2021 43.1 02/15/2021 44.1 10/06/2020 46.1 07/14/2020 46.0 MCV (fL) Date Value 11/16/2021 92.5 11/15/2021 91.9 11/13/2021 90.0 02/15/2021 96.5 10/06/2020 94.1 07/14/2020 96.2 Platelet Count (k/uL) Date Value 11/16/2021 308 11/15/2021 333 11/13/2021 320 02/15/2021 329 10/06/2020 367 07/14/2020 396 BASIC METABOLIC PANEL Sodium (mmol/L) Date Value 11/16/2021 143 11/15/2021 141 11/15/2021 142 02/15/2021 142 10/07/2020 140 10/06/2020 141 Potassium (mmol/L) Date Value 11/16/2021 4.7 11/15/2021 4.8 11/15/2021 5.3 02/15/2021 4.6 10/07/2020 3.8 10/06/2020 4.0 Chloride (mmol/L) Date Value 11/16/2021 107 11/15/2021 105 11/15/2021 105 02/15/2021 108 10/07/2020 105 10/06/2020 109 CO2 (mmol/L) Date Value 11/16/2021 23 11/15/2021 24 11/15/2021 25 02/15/2021 22 10/07/2020 25 10/06/2020 23 BUN (mg/dL) Date Value 11/16/2021 18 11/15/2021 18 11/15/2021 19 02/15/2021 22 10/07/2020 19 10/06/2020 21 Creatinine (mg/dL) Date Value 11/16/2021 0.87 11/15/2021 0.91 11/15/2021 0.90 02/15/2021 0.91 10/07/2020 0.99 10/06/2020 0.78 Calcium (mg/dL) Date Value 02/15/2021 9.2 10/07/2020 8.5 10/06/2020 9.1 Calcium, Total (mg/dL) Date Value 11/16/2021 9.0 11/15/2021 9.2 11/15/2021 9.2 Magnesium (mg/dL) Date Value 11/16/2021 2.2 11/15/2021 2.3 08/08/2021 1.9 Glucose (mg/dL) Date Value 11/16/2021 167 11/15/2021 187 11/15/2021 173 02/15/2021 167 10/07/2020 220 10/06/2020 183 CrCl cannot be calculated (Patient's most recent lab result is older than the maximum 180 days allowed.). LIVER FUNCTION PANEL Protein, Total (g/dL) Date Value 11/13/2021 7.0 08/12/2021 6.8 08/11/2021 6.6 02/15/2021 6.9 07/14/2020 7.0 Albumin (g/dL) Date Value 11/13/2021 4.5 08/12/2021 4.0 08/11/2021 4.0 02/15/2021 4.3 07/14/2020 4.4 Alkaline Phosphatase (U/L) Date Value 11/13/2021 94 08/12/2021 101 08/11/2021 95 02/15/2021 85 07/14/2020 109 Bilirubin, Total (mg/dL) Date Value 11/13/2021 0.8 08/12/2021 0.6 08/11/2021 0.8 02/15/2021 0.6 07/14/2020 0.4 AST (U/L) Date Value 11/13/2021 19 08/12/2021 40 08/11/2021 38 02/15/2021 21 07/14/2020 16 ALT (U/L) Date Value 11/13/2021 23 08/12/2021 45 08/11/2021 37 02/15/2021 21 07/14/2020 18 PT INR (no units) Date Value 10/06/2020 1.0 INR (no units) Date Value 08/07/2021 1.0 08/07/2021 1.0 LIPID PANEL Cholesterol, Total (mg/dL) Date Value 10/26/2021 141 02/15/2021 158 02/15/2021 155 07/14/2020 205 Triglyceride (mg/dL) Date Value 10/26/2021 184 02/15/2021 147 02/15/2021 147 07/14/2020 302 HDL Cholesterol (mg/dL) Date Value 10/26/2021 42 02/15/2021 42 02/15/2021 42 07/14/2020 41 LDL Cholesterol (mg/dL) Date Value 10/26/2021 62 02/15/2021 87 02/15/2021 84 07/14/2020 104 CARDIAC BIOMARKERS NT Pro BNP (pg/mL) Date Value 10/26/2021 135 08/07/2021 583 Troponin T Date Value Ref Range Status 08/08/2021 0.068 (H) 0.000 - 0.029 ng/mL Final OTHER BIOMARKERS TSH (uU/mL) Date Value 02/15/2021 1.250 07/14/2020 1.920 Hemoglobin A1C (%) Date Value 11/13/2021 8.2 08/08/2021 8.6 02/15/2021 7.8 07/14/2020 10.3 Vitamin D 25 Hydroxy (ng/mL) Date Value 11/13/2021 40.1 10/26/2021 29.7 07/14/2020 20.2 Iron (ug/dL) Date Value 07/14/2020 68 Antibody Screen (no units) Date Value 11/13/2021 Negative URINALYSISNo results found for: PH , SPGR , UGLUC , UBILI , UKET , UHB , UPROT , UROBIL , NITRITES , UWBC , SSA IMMUNOSUPRESSIONNo results found for: FK506 , CSA , RAPA INFECTIOUS DISEASESNo results found for: HIVSCN , CMVIGGAB , IGG ECHOCARDIOGRAM LV Ejection Fraction (%) Date [...] dynes PVR = (29-18)/6.6 = 1.7 ANDERSON 06/18/2023 MET Metabolic stress lab #: 1 Study protocol [...] / 80 mmHg Rate Pressure Product (RPP): 08523 Peak RER: 1.25 [1.1 - 1.50] Peak [...] slope: 29 [<30] EOV: Absent [Absent] (VE/VCO2 slope)/pVO2: 1.72 [< 2.7 (ml/kg/min)-1] HGI: 1.3 [>1.06 bpm/mmHg] Circulatory Power: 3143.40 [>3047 mmHg*(ml/min/kg)] Ventilatory Power: 6.41 [>5 mmHg] OUES: 1214.00 [>1790.00] Peak OUES: 0.74 [>= 0.73] IMPRESSION Angie Serra is a pleasant 57 year old White female who comes to [facility] for evaluation and management of Consult. The primary encounter diagnosis was Heart failure with preserved ejection fraction, unspecified HF chronicity (HCC). Diagnoses of Coronary artery disease involving [place] coronary artery of [place] heart, unspecified whether angina present, Primary hypertension, Mixed hyperlipidemia, Obesity, Class III, BMI 40-49.9 (morbid obesity) ([facility]), S/P drug eluting coronary stent placement, Type 2 diabetes mellitus with hyperglycemia, with long-term current use of insulin ([facility]), and Gastroesophageal reflux disease without esophagitis were [...] at this time. HTN and volume now controlled. Patient has improved with isosorbide. S/p Bariatric surgery; has lost significant weight already feeling great. Excellent functional capacity RECOMMENDATIONS Continue to follow all other prescribed medical therapies and recommendations. Return to clinic in 12 months for follow up. I have discussed with [...] our clinic. Orders Placed This Encounter HVI VIRTUAL VISIT APPOINTMENT Order Specific Question: Department Answer: CVM Order Specific Question: Appt Type Answer: [facility] Online E&M Level 3 ($729) [id number] Order Specific Question: Date of Appt Answer: Other/Add to Comments Comments: 12 month Cetirizine (ZYRTEC) 10 mg cap Sig: Take 1 capsule by mouth once daily. multivit-min/iron/folic acid/K (BARIATRIC MULTIVITAMINS ORAL) Sig: Take 1 tablet by mouth once daily. [facility] STAFF PHYSICIAN NOTE OF PERSONAL INVOLVEMENT IN CARE I have personally performed a [id number]-hwub diagnostic evaluation on this patient, including anamnesis [...] meaning may be extrapolated by contextual derivation. For services provided on: June 18, 2023; 11:48 AM. Bethany Snider MD Staff, Section of Heart Failure and Transplantation [facility] and [facility] Nataly Watt Department of Cardiovascular Medicine [facility] Heart, Vascular and Thoracic [place] [address] [place] Tel: [phone] Fax: [phone] Appt: [phone] documented in this encounter [facility] 12-27-2022 Miscellaneous Notes Call from pharmacy requesting refill. Requested Prescriptions Pending Prescriptions Disp Refills aspirin, enteric coated (ASPIR-81) 81 mg EC tablet 90 tablet 3 Sig: Take 1 tablet by mouth once daily. Patient last seen 12/14/2022 Radha Morales documented in this encounter [facility] 12-26-2022 Miscellaneous Notes Call from pharmacy requesting refill. Requested Prescriptions Pending Prescriptions Disp Refills sacubitril-valsartan (ENTRESTO) 24-26 mg tablet 180 tablet 3 Sig: Take 1 tablet by mouth twice daily. Patient last seen 12/14/2022 Radha Morales documented in this encounter [facility] 12-14-2022 Note HNO ID: [id number] Author: Johanne Snider MD Service: ? Author Type: Physician Type: Progress Notes Filed: 12/14/2022 5:07 PM Note Text: [facility] Nataly Watt Department of Cardiovascular Medicine [facility] Treatment and Recovery Section of Heart Failure and Transplantation Medicine PATIENT Angie Serra [address] [place], [place] [id number] [facility] PRIMARY CARE PROVIDER Patti Valdez MD [address] [place] [address] REFERRING PROVIDER Michael Maciel [address] [facility] [id number] CHIEF COMPLAINT Consult HISTORY OF PRESENT ILLNESS Angie Serra is a pleasant 56 year old White female who comes to [facility] for evaluation and management of Consult. The patient has been referred by Michael Maciel MD; a copy of this note will be provided by way of shared medical record and/or via regular mail. The date of his first clinic visit with me is September 14, 2021. In summary, Angie Serra is a 56 y/o female from [place], [place] following up after hospitalization. Pt has [...] in Obese (Hcc) Coronary Artery Disease Involving [place] Coronary Artery of [place] Heart S/P Drug Eluting Coronary Stent Placement [...] daily. empagliflozin (JARD (more content not included)... [facility] 07-30-2022 History of Present illness Narrative CMN RECEIVED BY [employer] VIA FAX, COMPLETED, AND PLACED IN PROVIDER MAILBOX FOR SIGNATURE Inga Enriquez Heel Painter II July 30, 2022 [employer] SENDING CMN: [employer] SIGNED AND DATED CMN, FAXED TO [employer] & CONFIRMATION PAGE RECEIVED: 07/31/2022 documented in this encounter [facility] 07-12-2022 History of Present illness Narrative CMN RECEIVED BY [employer] VIA FAX, COMPLETED, AND PLACED IN PROVIDER MAILBOX FOR SIGNATURE Osman Hutchison, Administration Assistance 07/12/22 [employer] SENDING CMN: MSC SIGNED AND DATED CMN, FAXED TO [employer] & CONFIRMATION PAGE RECEIVED: 07/13/22 documented in this encounter [facility] 03-16-[address] [...] try softer vegetables such as broccoli florets, [place] lettuce, red-leaf lettuce or [place] lettuce. Remember to chew vegetables thoroughly (chew 25 times) and swallow only when chewing has made it into a mushy pureed consistency. If you have trouble with gas, avoid eating gas-producing vegetables such as onions, cauliflower, garlic, scallions, leeks, [place] sprouts and cabbage. Avoid starchy vegetables such as potatoes (sweet and white), yams, yucca, plantain and corn at this time. Vitamin/minerals: Take daily multivitamin with 200 % daily value for all vitamin/minerals plus VIt D3 3,000 IU, Vit B12 500 mcg, Iron 45 mg and calcium citrate 6022-5328 mg/day . It is okay to use combination vitamin/minerals to reduce pill volume. Page 43 of Your Guide to Surgery Nutrition Monitoring & Evaluation: BMI < 30 Criteria: Patient update, weight check Need for Follow up: 3 months, scheduling documented in this encounter [facility] 03-16-2022 History of Present illness Narrative The [facility] Nutrition Therapy: Virtual Consult - [...] daily multivitamin complete capsule (Bariatric Fusion OR [employer]ATIONAL)and calcium citrate 5440-0263 mg/day 2. Protein goal: 73-91 grams protein/day [...] with raw vegetables Breakfast: protein shake Snack: [place] yogurt Lunch: meat OR cottage cheese Snack: [...] Rate: 1464 Energy needs for weight loss 2358-3523 (15-20 kcal/kg CBW) Protein needs: 82 grams [...] try softer vegetables such as broccoli florets, [place] lettuce, red-leaf lettuce or [place] lettuce. Remember to chew vegetables thoroughly (chew 25 times) and swallow only when chewing has made it into a mushy pureed consistency. If you have trouble with gas, avoid eating gas-producing vegetables such as onions, cauliflower, garlic, scallions, leeks, [place] sprouts and cabbage. Avoid starchy vegetables such as potatoes (sweet and white), yams, yucca, plantain and corn at this time. Vitamin/minerals: Take daily multivitamin with 200 % daily value for all vitamin/minerals plus VIt D3 3,000 IU, Vit B12 500 mcg, Iron 45 mg and calcium citrate 1064-5375 mg/day . It is okay to use combination vitamin/minerals to reduce pill volume. Page 43 of Your Guide to Surgery Nutrition Monitoring & Evaluation: BMI < 30 Criteria: Patient update, weight check Need for Follow up: 3 months, scheduling Referred/Supervised by: Self/Cetin MNT Billing Type: Re-assess/15 min 1 unit Signed by: Delmi Blue RDN, SVETA, MELBA documented in this encounter [facility] 02-19-2022 Miscellaneous Notes Pharmacy electronic [...] Patricia Rene 02/19/2022 documented in this encounter [facility] 01-09-[address] [...] daily multivitamin complete capsule (Bariatric Fusion OR PE INTERNATIONAL)and calcium citrate 8607-6944 mg/day 2. Protein goal: 73-91 grams protein/day 3. Fluid goal: 64 ounces per day (no carbonation, caffeine, calories, alcohol) 4. Exercise goal: increase as tolerated to goal of 200 minutes/week combination cardiovascular and strength training exercise. 5. Practice mindful eating habits-take small portions, eat slowly, chew thoroughly Patient is to follow-up: 2 months to access adherence to goals, [phone] documented in this encounter [facility] 01-09-2022 History of Present illness [...] Metabolic Rate:1555 Energy needs for weight loss 1026-5897 (15-20 nikita/kg current weight) Protein needs: 73-91 grams protein per day (1.2 - 1.5 g/kg IBW kg) Exercise - ADLs, limited by knee pain, falling below recommendations Reviewed nutrition principles of: 1. Continue to take all recommended vitamin/minerals including Bariatric Fusion Chewable Multivitamin (4x per day) OR consider switching to a daily multivitamin complete capsule (Bariatric Fusion OR PE INTERNATIONAL)and calcium citrate 9715-4162 mg/day 2. Protein goal: 73-91 grams protein/day 3. Fluid goal: 64 ounces per day (no carbonation, caffeine, calories, alcohol) 4. Exercise goal: increase as tolerated to goal of 200 minutes/week combination cardiovascular and strength training exercise. 5. Practice mindful eating habits-take small portions, eat slowly, chew thoroughly Patient is to follow-up: 2 months to access adherence to goals, [phone] Nutrition Monitoring & Evaluation:BMI < 35 Criteria: weight check Need for Follow up: 2 months Appointment Start Time: 11:45 AM Appointment End Time: 12:29 PM Time Spent on Consult: 44 minutes - Group Lisbet Hernandez RD documented in this encounter [facility] 11-27-2021 Miscellaneous Notes Pharmacy electronic [...] up scheduled, sent to schedulers No Tosha Degroot Adm 11/27/2021 documented in this encounter [facility] 11-22-2021 History of Present illness [...] (obstructive sleep apnea) Coronary artery disease involving [place] coronary artery of [place] heart S/P drug eluting coronary stent placement Morbid obesity (HCC) Mixed hyperlipidemia Gastroesophageal reflux disease without esophagitis Diabetes mellitus type 2 in obese (HCC) Obesity, Class III, BMI >= 40 Migraine Primary hypertension Type 2 diabetes mellitus with hyperglycemia, with long-term current use of insulin (HCC) Resolved Hospital Problems No resolved problems to display. DISPOSITION: Return 1 month to [facility] visit EDUCATION: Encouraged to continue with healthy lifestyle changes and incorporate cardiovascular and resistance training, Discussed weight loss expectations after bariatric and metabolic surgery, Advised PT to avoid NSAIDs, smoking tobacco given increased risk of marginal ulcers or Discussed importance of protein intake as per the RDN note REFERRALS: N/A LABS: Kulwinder Payne MD Advanced Laparoscopic & Bariatric Surgery Fellow Bariatric & Metabolic [place] [facility] documented in this encounter [facility] 11-21-2021 Miscellaneous Notes BMI SPECIALTY [...] agreed with plan. documented in this encounter [facility] 11-13-2021 History of Present illness Narrative BARIATRIC SURGERY PREOPERATIVE VISIT NOTE Name: Angie Serra Medical Record: [id number] Encounter No.: [id number] This visit was performed virtually due to [...] patient was offered a surgery/procedure at a [facility] facility. The surgeon/proceduralist and patient have discussed in [...] and Bariatric Surgery documented in this encounter [facility] 11-13-2021 Miscellaneous Notes BMI SPECIALTY CARE COORDINATION TELEPHONE ENCOUNTER Returning patient call; confirmed upcoming BMI appointments. Patient has BMI contact numbers to call if has any further questions or concerns. documented in this encounter [facility] 11-10-2021 Miscellaneous Notes BMI SPECIALTY [...] may take two Extra Strength Tylenol. Rhonda Arnold, RN documented in this encounter [facility] 11-10-[address] [...] advise. Angie Serra can be reached at [phone]. documented in this encounter [facility] 11-09-2021 Miscellaneous Notes [facility] SPECIALTY CARE COORDINATION SURGERY APPROVAL CALL Received e-mail confirmation of insurance approval for bariatric surgery.Pre-operative call placed to the patient, this RN spoke with patient and agreed upon a surgery date of November 14 2021. Surgical episode request sent to [facility] surgery scheduling. Creatinine level 0.96 Patient instructed to start pre-op 800 calorie total protein liquid diet Atkins (5) daily beginning 2 weeks prior to surgery. - Stop all ASA and NSAID products, [place] 3 fish oil, herbal products such as [...] testing complete. Con ABO No ordered Rhonda Barnard RN documented in this encounter [facility] 11-08-2021 Miscellaneous Notes Follow up call placed to patient, no answer phone; left voice message and MyChart message with my call back phone number. documented in this encounter [facility] 10-26-2021 History of Present illness Narrative Images from the original note were not included. [facility] Nataly Watt Department of Cardiovascular Medicine [facility] Treatment [facility] Recovery Section of Heart Failure and Transplantation Medicine PATIENT Angie Serra [address] [place] [id number] [facility] PRIMARY CARE PROVIDER Patti Valdez MD [address] [place] [id number] REFERRING PROVIDER Michael Maciel [address] [place] [facility] [address] CHIEF COMPLAINT Consult HISTORY OF PRESENT ILLNESS Angie Serra is a pleasant 56 year old White female who comes to [facility] for evaluation and management of Consult. The patient has been referred by Michael Maciel MD; a copy of this note will be provided by way of shared medical record and/or via regular mail. The date of his first clinic visit with me is September 14, 2021. In summary, Angie Serra is a 56 y/o female from [place], [place] following up after hospitalization. Pt has [...] Hyperglycemia, With Long-Term Current Use of Insulin ([facility]) Primary Hypertension Migraine Obesity, Class III, BMI >= 40 Morbid Obesity (Hcc) Mixed Hyperlipidemia Gastroesophageal Reflux Disease Without Esophagitis Diabetes Mellitus Type 2 in Obese ([facility]) Coronary Artery Disease Involving [place] Coronary Artery of [place] Heart S/P Drug Eluting Coronary Stent Placement Raymundo (Obstructive Sleep Apnea) Acute On Chronic Heart Failure With Preserved Ejection Fraction (Hcc) Heart Failure With Preserved Ejection Fraction ([facility]) CURRENT MEDICATIONS potassium chloride (K-TAB) 10 mEq tablet Take 10 mEq by mouth twice daily. [employer] DESIREE 14 DAY SENSOR kit apply 1 [...] 1 tablet by mouth once daily. pantoprazole (PROTONIX) 40 mg tablet Take 1 tablet [...] - Exam was compared with the prior echocardiographic exam performed on 08/12/2020 with mild [...] year old White female who comes to [facility] for evaluation and management of Consult. The primary encounter diagnosis was Heart failure with preserved ejection fraction, unspecified HF chronicity ([facility]). Diagnoses of Primary hypertension, Mixed hyperlipidemia, Obesity, Class III, BMI 40-49.9 (morbid obesity) ([facility]), Coronary artery disease involving [place] coronary artery of [place] heart, unspecified whether angina present, S/P drug eluting coronary stent placement, Type 2 diabetes mellitus with hyperglycemia, with long-term current use of insulin ([facility]), and Gastroesophageal reflux disease without esophagitis were [...] Order Specific Question: Provider Answer: Johanne SNIDER [[id number]] Order Specific Question: CVM Section: Answer: Heart Failure Order Specific Question: Testing Options: Answer: No Testing Order Specific Question: Return: Answer: 3 months potassium chloride (K-TAB) 10 mEq tablet Sig: Take 10 mEq by mouth twice daily. [facility] STAFF PHYSICIAN NOTE OF PERSONAL INVOLVEMENT IN CARE I have personally performed a jlej-uc-qjcv diagnostic evaluation on this patient, including anamnesis [...] of Heart Failure and Transplantation Medicine [place] Javier and Ariana Barrera [facility] Nataly Watt Department of Cardiovascular Medicine [facility] R[facility] Heart, Vascular and Thoracic [place] [address] [facility] Tel: [phone] Fax: [phone] Appt: [phone] documented in this encounter [facility] 10-26-[address] - 10/26/2021 8:33 AM EDT Nutrition Intervention 10/26/2021: Modify type and amount of food consumed for meals and snacks: Please call [phone], option 5. Leave a message for the [...] day 5 packets of No Sugar Added [place] Instant Breakfast Drink mixed with fat free [...] in the AM, 2 in the PM) www.bariatricfusion.[employer] - Glimpse Health: 1 Bariatric Multivitamin and Calcium Citrate (total of 9797-2010 mg/day) * take calcium citrate separately from Multivitamin with iron at least 2 hours apart and 4 hours apart from additional calcium www.[employer] - Bariatric Choice: 4 Complete Multivitamins (chewables) per day Www.bariatricchoice.com - Bariatric Advantage: 2 Multivitamins and 3 Calcium Citrate Chewables per day * take calcium citrate separately from Multivitamin with iron at least 2 hours apart and 4 hours apart from additional calcium Www.bariatricadvantage.[employer] Nutrition Monitoring & Evaluation: 1-2 lb per week weight loss Criteria: Patient update, weight check Need for Follow up: 2-weeks post-op documented in this encounter [facility] 10-26-2021 History of Present illness Narrative The [facility] Nutrition Therapy: Virtual Consult Re-assessment [...] consumed for meals and snacks: 1. Continue 7923-5462 calorie partial liquid diet (refer to handout) [...] guidelines for weight loss surgery and has [facility] insurance and therefore may be required [...] consumed for meals and snacks: Please call [phone], option 5. Leave a message for the [...] day 5 packets of No Sugar Added [place] Instant Breakfast Drink mixed with fat free [...] in the AM, 2 in the PM) www.bariatricfusion.[employer] - CMP.LY: 1 Bariatric Multivitamin and Calcium Citrate (total of 7113-9917 mg/day) * take calcium citrate separately from Multivitamin with iron at least 2 hours apart and 4 hours apart from additional calcium www.[employer] - Bariatric Choice: 4 Complete Multivitamins (chewables) per day Www.bariatricchoice.com - Bariatric Advantage: 2 Multivitamins and 3 Calcium Citrate Chewables per day * take calcium citrate separately from Multivitamin with iron at least 2 hours apart and 4 hours apart from additional calcium Www.bariatricadvantage.[employer] Nutrition Monitoring & Evaluation: 1-2 lb per week weight loss Criteria: Patient update, weight check Need for Follow up: 2-weeks post-op MNT Billing Type: Re-assess/15 min 1 unit Signed by: Delmi Blue RDN, SVETA, MELBA documented in this encounter [facility] 10-24-2021 History of Present illness Narrative Office notes for insurance requirements for PAP therapy use faxed to DME; [employer] # [phone]; FAX# [phone]; [phone]. Confirmed and filed. Chiqui Gregg Ma Images from the original note were not included. [facility] Sleep Disorders Center Virtual Visit [...] will have a prescription sent to a [employer] company - YANELI Serrato - who will be calling you in the next 2-4 weeks or so. Please call them directly or us if you do not hear from them in this time frame. - You should be eligible for new supplies approximately every 3-6 months, depending on your insurance coverage. - If your mask doesn't fit well, call the DME company before 30 days are up to get a new mask without an additional charge. - Insurance requires regular usage and periodic office follow ups for PAP therapy, to continue to cover supplies. INSURANCE REQUIREMENTS: - Your insurance requires a [id number] follow up visit within a 31-90 day [...] supplies. Follow up in 3 month(s). Soo Vyas, DALE.BLOGS MANAGER Interval history : 56 yo female here [...] negative. ALLERGIES No Known Allergies CURRENT MEDICATIONS: BionomicsE 14 DAY SENSOR kit apply 1 SENSOR [...] Follow up in 12 months Soo Vyas APRN.CNP I spent a total of 17 minutes on the date of the service which included preparing to see the patient, [id number] patient care, completing clinical documentation, obtaining and/or reviewing separately obtained history, counseling and educating the patient/family/caregiver and communicating results to the patient/family/caregiver. documented in this encounter [facility] 10-05-2021 History of Present illness Narrative Images from the original note were not included. Heart, V[facility] Thor[facility] [place] Department of Cardiovascular Medicine VIRTUAL VIDEO VISIT [...] disease ? EKG 07/14/20 read as inferior OK and possible anterolateral infarction. Echo showing anteroseptal akinesis and apical thinning with EF 50% ? No history of angina or angina equivalent. Has been more active here recently, walking 2-3 miles on flat ground without limitation or symptom onset. ? Tobacco use: Quit 37 years ago < 1 ppd for less than 2 years ? Family History: Father: CAD [place] CABG DM, HTN, HLD, Mother: DM HTN, [...] 2021 10:40 AM documented in this encounter [facility] 09-25-2021 History of Present illness Narrative [facility] Nutrition Therapy: Virtual Consult Re-assessment [...] (date of last encounter 08/25/2021): 1. Continue 9230-1085 calorie partial liquid diet (refer to handout) [...] guidelines for weight loss surgery and has [facility] insurance and therefore may be required [...] consumed for meals and snacks: 1. Continue 2417-4728 calorie partial liquid diet (refer to handout) [...] Danuta Fuentes MS,RD,CSOWM,LD documented in this encounter [facility] 09-20-2021 Miscellaneous Notes [id number] PA PA for entresto 24-26 mg tablet has been initiated thru Cover My meds. Await determination. Genoveva Moseley RN September 20, 2021 8:20 AM Approvedtoday Request Reference Number: [id number]. ENTRESTO TAB 24-26MG is approved through 09/20/2022. Your patient may now fill this prescription and it will be covered. Genoveva Moseley RN September 20, 2021 8:27 AM documented in this encounter [facility] 09-14-2021 Dino Snider MD - 09/14/2021 10:23 AM EDT Will start Entresto 50 mg twice daily Will increase Empagliflozin to 25 mg daily Will stop Isosorbide Will stop Furosemide Will start Torsemide 20 mg daily Continue to follow all other prescribed medical therapies and recommendations. Return to clinic in 4 weeks for follow up with fasting labs. documented in this encounter [facility] 09-14-2021 History of Present illness Narrative Images from the original note were not included. LUCY MIGUEL [facility] Nataly Watt Department of Cardiovascular Medicine [facility] Section of Heart Failure and Transplantation Medicine PATIENT Angie Serra [address] [facility] [address] [facility] PRIMARY CARE PROVIDER Patti Valdez MD [address] [place] [address] REFERRING PROVIDER Michael Maciel [address] [facility] [address] CHIEF COMPLAINT Consult HISTORY OF PRESENT ILLNESS Angie Serra is a pleasant 56 year old White female who comes to [facility] for evaluation and management of Consult. The patient has been referred by Michael Maciel MD; a copy of this note will be provided by way of shared medical record and/or via regular mail. The date of his first clinic visit with me is September 14, 2021. In summary, Angie Serra is a 56 y/o female from [place], [place] following up after hospitalization. Pt has [...] ACTIVE MEDICAL PROBLEMS ACTIVE PROBLEM LIST Diabetes (Hcc) Primary Hypertension Migraine Obesity, Class III, BMI >= 40 Morbid Obesity ([facility]) Mixed Hyperlipidemia Gastroesophageal Reflux Disease Without Esophagitis Diabetes Mellitus Type 2 in Obese ([facility]) Coronary Artery Disease Involving [place] Coronary Artery of [place] Heart S/P Drug Eluting Coronary Stent Placement Raymundo (Obstructive Sleep Apnea) Acute On Chronic Heart Failure With Preserved Ejection Fraction (Hcc) CURRENT MEDICATIONS BionomicsE 14 DAY SENSOR kit apply 1 SENSOR [...] - Exam was compared with the prior echocardiographic exam performed on 08/12/2020 with mild [...] year old White female who comes to [facility] for evaluation and management of Consult. The primary encounter diagnosis was Acute on chronic heart failure with preserved ejection fraction (HCC). Diagnoses of Primary hypertension, Mixed hyperlipidemia, Obesity, Class III, BMI 40-49.9 (morbid obesity) ([facility]), Coronary artery disease involving [place] coronary artery of [place] heart, unspecified whether angina present, S/P drug eluting coronary stent placement, Type 2 diabetes mellitus with hyperglycemia, with long-term current use of insulin ([facility]), and Gastroesophageal reflux disease without esophagitis were [...] Order Specific Question: Provider Answer: Johanne SNIDER [[id number]] Order Specific Question: CVM Section: Answer: Heart [...] to having blood drawn. (Water is permitted) [employer] DESIREE 14 DAY SENSOR kit Sig: apply [...] twice daily. Dispense: 180 tablet Refill: 3 [facility] STAFF PHYSICIAN NOTE OF PERSONAL INVOLVEMENT IN CARE I have personally performed a [id number] diagnostic evaluation on this patient, including anamnesis [...] and Transplantation Medicine Vidal Herrera and [facility] Nataly Watt Department of Cardiovascular Medicine Hiram emily Roly Miguel [facility] Heart, Vascular and Thoracic [place] [address] [place] Tel: [phone] Fax: [phone] Appt: [phone] documented in this encounter [facility] 08-25-2021 History of Present illness Narrative [facility] Nutrition Therapy: Virtual Consult Re-assessment [...] week: Chair or standing Team Body Project https://www.[employer].com/watch?v=e8 opMY-SoZc Chair exercise Synker [email or web address]://www.[email or web address]/resour ce/videos-[email or web address]?video=[email or web address] Laura Pandey Easy walk in place 15 min https://www.youIndixube.com/watch?v=nj oQ67bvgJX Body Project 30 min https://youtu.be/J-[email or web address]-[email or web address] Laura Pandey Higher intensity walk 30 min https://www.Minor Studiosube.com/watch?v=cv BC1XQz8HG 5. Drink 64 ounces per day water. [...] guidelines for weight loss surgery and has [facility] insurance and therefore may be required [...] consumed for meals and snacks: 1. Continue 2014-6235 calorie partial liquid diet (refer to handout) [...] Danuta Fuentes MS,RD,CSOWM,LD documented in this encounter [facility] 08-18-2021 Miscellaneous Notes 1. Have [...] (Standard Question) Yes documented in this encounter [facility] 08-14-2021 Miscellaneous Notes Called patient for follow up from recent hospital discharge but no answer, message left on voicemail including resource nurse phone number. documented in this encounter [facility] 08-12-2021 Miscellaneous Notes Ambulatory Pharmacy Prior Authorization Note Provider Intervention Required?: No- Pharmacy completed on your behalf. Drug: Jardiance 10mg Cover My Meds Broderick: [id number] Determination: Approved Prior Authorization/Case #: [id number] Prior Authorization Expiration: 08/12/2022 Time to PA Submission in CMM: 30 min Time to PA Determination in CMM: Same day Additional Information: For questions relating to this submission, please contact [facility] at [phone] documented in this encounter [facility] 08-07-2021 History of Present illness Narrative Images from the original note were not included. Heart and Vascular [place] Nataly Watt Department of Cardiovascular Medicine SECTION OF CLINICAL CARDIOLOGY OUTPATIENT VISIT DATE August 07, 2021 OUTPATIENT VISIT TYPE ESTABLISHED PRIMARY CARE PHYSICIAN: Patti Valdez MD [address] [place] [id number] CHIEF COMPLAINT: Followup visit HISTORY OF PRESENT [...] the floors, clean the dishes, load the finishing range feeder, get dressed, and do laundry without shortness [...] disease ? EKG 07/14/20 read as inferior OK and possible anterolateral infarction. Echo showing anteroseptal akinesis and apical thinning with EF 50% ? No history of angina or angina equivalent. ? Tobacco use: Quit 37 years ago < 1 ppd for less than 2 years ? Family History: Father: CAD [place] CABG DM, HTN, HLD, Mother: DM HTN, [...] have personally reviewed the reports from the [facility] Kira Scott DO Internal Medicine, PGY3 [facility] iPhone: August 07, 2021 3:47 PM In [...] Nataly Watt Department of Cardiovascular Medicine [facility] Heart, Vascular and Thoracic [place] [facility] Office: [phone] documented in this encounter [facility] 08-07-2021 History of Past i llness Narrative Problem Noted Date Resolved Date NSTEMI (non-ST elevated myocardial infarction) 0 08/07/2021 08/12/2021 documented as of this encounter (statuses as of 08/12/2021) [facility]22 History of Past illness Narrative* Problem Noted Date Resolved Date NSTEMI (non-ST elevated myocardial infarction) 0 08/07/2021 08/12/2021 documented as of this encounter (statuses as of 08/14/2021) [address]21-2022 History of Past illness Narrative* Problem Noted Date Resolved Date NSTEMI (non-ST elevated myocardial infarction) 0 08/07/2021 08/12/2021 documented as of this encounter (statuses as of 08/18/2021) [address]21-2022 History of Past illness Narrative* Problem Noted Date Resolved Date NSTEMI (non-ST elevated myocardial infarction) 0 08/07/2021 08/12/2021 documented as of this encounter (statuses as of 08/25/2021) [address]21-2022 History of Past illness Narrative* Problem Noted Date Resolved Date NSTEMI (non-ST elevated myocardial infarction) 0 08/07/2021 08/12/2021 documented as of this encounter (statuses as of 09/20/2021) [address]21-2022 History of Past illness Narrative* Problem Noted Date Resolved Date NSTEMI (non-ST elevated myocardial infarction) 0 08/07/2021 08/12/2021 documented as of this encounter (statuses as of 09/25/2021) [address]21-2022 History of Past illness Narrative* Problem Noted Date Resolved Date NSTEMI (non-ST elevated myocardial infarction) 0 08/07/2021 08/12/2021 documented as of this encounter (statuses as of 10/02/2021) [address]21-2022 History of Past illness Narrative* Problem Noted Date Resolved Date NSTEMI (non-ST elevated myocardial infarction) 0 08/07/2021 08/12/2021 documented as of this encounter (statuses as of 10/06/2021) [address]21-2022 History of Past illness Narrative* Problem Noted Date Resolved Date NSTEMI (non-ST elevated myocardial infarction) 0 08/07/2021 08/12/2021 documented as of this encounter (statuses as of 10/24/2021) [address]21-2022 History of Past illness Narrative* Problem Noted Date Resolved Date NSTEMI (non-ST elevated myocardial infarction) 0 08/07/2021 08/12/2021 documented as of this encounter (statuses as of 10/24/2021) [address]21-2022 History of Past illness Narrative* Problem Noted Date Resolved Date NSTEMI (non-ST elevated myocardial infarction) 0 08/07/2021 08/12/2021 documented as of this encounter (statuses as of 10/26/2021) [facility] History of Past illness Narrative* Problem Noted Date Resolved Date NSTEMI (non-ST elevated myocardial infarction) 0 08/07/2021 08/12/2021 documented as of this encounter (statuses as of 10/26/2021) [address]21-2022 History of Past illness Narrative* Problem Noted Date Resolved Date NSTEMI (non-ST elevated myocardial infarction) 0 08/07/2021 08/12/2021 documented as of this encounter (statuses as of 11/08/2021) [address]21-2022 History of Past illness Narrative* Problem Noted Date Resolved Date NSTEMI (non-ST elevated myocardial infarction) 0 08/07/2021 08/12/2021 documented as of this encounter (statuses as of 11/08/2021) [facility] History of Past illness Narrative* Problem Noted Date Resolved Date NSTEMI (non-ST elevated myocardial infarction) 0 08/07/2021 08/12/2021 documented as of this encounter (statuses as of 11/09/2021) [facility] History of Past illness Narrative* Problem Noted Date Resolved Date NSTEMI (non-ST elevated myocardial infarction) 0 08/07/2021 08/12/2021 documented as of this encounter (statuses as of 11/10/2021) [address]21-2022 History of Past illness Narrative* Problem Noted Date Resolved Date NSTEMI (non-ST elevated myocardial infarction) 0 08/07/2021 08/12/2021 documented as of this encounter (statuses as of 11/13/2021) [address]21-2022 History of Past illness Narrative* Problem Noted Date Resolved Date NSTEMI (non-ST elevated myocardial infarction) 0 08/07/2021 08/12/2021 documented as of this encounter (statuses as of 11/13/2021) [address]21-2022 History of Past illness Narrative* Problem Noted Date Resolved Date NSTEMI (non-ST elevated myocardial infarction) 0 08/07/2021 08/12/2021 documented as of this encounter (statuses as of 11/21/2021) [facility] History of Past illness Narrative* Problem Noted Date Resolved Date NSTEMI (non-ST elevated myocardial infarction) 0 08/07/2021 08/12/2021 documented as of this encounter (statuses as of 11/22/2021) [facility] History of Past illness Narrative* Problem Noted Date Resolved Date NSTEMI (non-ST elevated myocardial infarction) 0 08/07/2021 08/12/2021 documented as of this encounter (statuses as of 12/01/2021) [facility] History of Past illness Narrative* Problem Noted Date Resolved Date NSTEMI (non-ST elevated myocardial infarction) 0 08/07/2021 08/12/2021 documented as of this encounter (statuses as of 01/09/2022) [facility] History of Past illness Narrative* Problem Noted Date Resolved Date NSTEMI (non-ST elevated myocardial infarction) 0 08/07/2021 08/12/2021 documented as of this encounter (statuses as of 02/19/2022) [facility] History of Past illness Narrative* Problem Noted Date Resolved Date NSTEMI (non-ST elevated myocardial infarction) 0 08/07/2021 08/12/2021 documented as of this encounter (statuses as of 03/16/2022) [facility] History of Past illness Narrative* Problem Noted Date Resolved Date NSTEMI (non-ST elevated myocardial infarction) 0 08/07/2021 08/12/2021 documented as of this encounter (statuses as of 2022) [facility] History of Past illness Narrative* Problem Noted Date Resolved Date NSTEMI (non-ST elevated myocardial infarction) 0 08/07/2021 08/12/2021 documented as of this encounter (statuses as of 07/31/2022) [facility] History of Past illness Narrative* Problem Noted Date Diagnosed Date Resolved Date NSTEMI (non-ST elevated myoc ardial infarction) 08/07/2021 08/12/2021 documented as of this encounter (statuses as of 12/27/2022) [facility] History of Past illness Narrative* Problem Noted Date Diagnosed Date Resolved Date NSTEMI (non-ST elevated myoc ardial infarction) 08/07/2021 08/12/2021 documented as of this encounter (statuses as of 12/28/2022) [facility] History of Past illness Narrative* Problem Noted Date Diagnosed Date Resolved Date NSTEMI (non-ST elevated myoc ardial infarction) 08/07/2021 08/12/2021 documented as of this encounter (statuses as of 07/18/2023) [facility] note* Diagnosis Dyspnea, unspecified type- Primary [facility] Diagnosis Diabetes mellitus type 2 in obese ([facility])- Primary Type II or unspecified type diabetes mellitus without mention of complication, not stated as uncontrolled Dietary counseling and surveillance Dietary surveillance and counseling documented in this encounter [facility] note* Diagnosis Diabetes mellitus type 2 in obese ([facility])- Primary Type II or unspecified type diabetes mellitus without mention of complication, not stated as uncontrolled Dietary counseling and surveillance Dietary surveillance and counseling [facility] Diagnosis Acute on chronic heart failure with preserved ejection fraction ([facility])- Primary Primary hypertension Unspecified essential hypertension Mixed hyperlipidemia Obesity, Class III, BMI 40-49.9 (morbid obesity) ([facility]) Morbid obesity Coronary artery disease involving [place] coronary artery of [place] heart, unspecified whether angina present S/P drug eluting coronary stent placement Postsurgical percutaneous transluminal coronary angioplasty status Type 2 diabetes mellitus with hyperglycemia, with long-term current use of insulin ([facility]) Gastroesophageal reflux disease without esophagitis Esophageal reflux [facility] Diagnosis Heart failure with preserved ejection fraction, unspecified HF chronicity ([facility])- Primary [facility] Diagnosis RAYMUNDO (obstructive sleep apnea)- Primary Obstructive sleep apnea (adult) (pediatric) Vitamin D deficiency Unspecified vitamin D deficiency [facility]* Diagnosis BMI 40.0-44.9, adult ([facility])- Primary Body Mass Index 40.0-44.9, adult Dietary counseling Dietary surveillance and counseling documented in this encounter [facility] note* Diagnosis Heart failure with preserved ejection fraction, unspecified HF chronicity (HCC)- Primary Primary hypertension Unspecified essential hypertension Mixed hyperlipidemia Obesity, Class III, BMI 40-49.9 (morbid obesity) (HCC) Morbid obesity Coronary artery disease involving [place] coronary artery of [place] heart, unspecified whether angina present S/P drug eluting coronary stent placement Postsurgical percutaneous transluminal coronary angioplasty status Type 2 diabetes mellitus with hyperglycemia, with long-term current use of insulin (HCC) Gastroesophageal reflux disease without esophagitis Esophageal reflux documented in this encounter [facility] note* Diagnosis Postoperative pain- Primary Other acute postoperative pain Morbid obesity (HCC) Morbid obesity Type 2 diabetes mellitus with morbid obesity (HCC) Morbid obesity (HCC) Morbid obesity documented in this encounter [facility] note* Diagnosis Bariatric surgery status- Primary documented in this encounter [facility] note* Diagnosis Coronary artery disease involving [place] coronary artery of [place] heart, unspecified whether angina present documented in this encounter [facility] note* Diagnosis Impaired intestinal absorption- Primary Unspecified intestinal malabsorption S/P gastric bypass Bariatric surgery status Obesity, Class II, BMI 35-39.9 Obesity, unspecified Dietary counseling and surveillance Dietary surveillance and counseling documented in this encounter [facility] note* Diagnosis BMI 30.0-30.9,adult- Primary Body Mass Index 30.0-30.9, adult Dietary counseling Dietary surveillance and counseling documented in this encounter [facility] note* Diagnosis Heart failure with preserved ejection fraction, unspecified HF chronicity (HCC)- Primary Coronary artery disease involving [place] coronary artery of [place] heart, unspecified whether angina present Primary hypertension Unspecified essential hypertension Mixed hyperlipidemia Obesity, Class III, BMI 40-49.9 (morbid obesity) (HCC) Morbid obesity S/P drug eluting coronary stent placement Postsurgical percutaneous transluminal coronary angioplasty status Type 2 diabetes mellitus with hyperglycemia, with long-term current use of insulin (HCC) Gastroesophageal reflux disease without esophagitis Esophageal reflux documented in this encounter [facility] note* Diagnosis Research subject- Primary documented in this encounter [facility] Summary Purpose Family History No Family History Records FoundNo Family History Records FoundNo Family History Records FoundNo Family History Records Found Advance Directives Documents on File Type Date Recorded 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 Advance Directive(s) 08/07/2021 8:20 PM [...] Documents on File Type Date Recorded 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 Advance Directive(s) 08/07/2021 8:20 PM Advance Directive(s) 09/28/2020 2:26 PM Advance Directive(s) 06/27/2020 10:57 AM Advance Directive(s) 06/24/2020 6:34 AM Advance Directive(s) 06/16/2020 12:40 PM Latest Code Status on File Code Status Date Activated Date Inactivated Comments Full Code 08/07/2021 10:39 PM 08/12/2021 6:19 PM Documents on File Type Date Recorded 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 Advance Directive(s) 11/13/2021 8:32 AM Advance Directive(s) 08/07/2021 8:20 PM Advance Directive(s) 09/28/2020 2:26 PM Advance Directive(s) 06/27/2020 10:57 AM Advance Directive(s) 06/24/2020 6:34 AM Advance Directive(s) 06/16/2020 12:40 PM Latest Code Status on File Code Status Date Activated Date Inactivated Comments Full Code 08/07/2021 10:39 PM 08/12/2021 6:19 PM Question Answer Comments Full Code Order Discussed With: Patient Date Activated Date Inactivated Comments 08/07/2021 10:39 PM 08/12/2021 6:19 PM Question Answer Comments Full Code Order Discussed With: Patient Procedure Findings Note HNO ID: [id number] Author: Tessa Rodriguez (Addy) DO [place] Service: General Surgery Author Type: Resident Type: Brief Op Note Filed: 07/01/2020 10:47 AM Note Text: BRIEF OPERATIVE NOTE - GENERAL SURGERY Log ID: [id number] Surgery/Procedure Date: 07/01/2020 Incision/Procedure Start Time: 10:04 AM Incision Close/Procedure End Time: 10:43 AM Surgeon(s) and Emergency Department Coordinator(s): Surgeon(s) and Role: * Salbador Hernandez - [...] ma Referred To Contact Johanne Snider MD [address] [place] [address] Referral ID Status Reason Start Date Expiration Date Visits Re quested Visits Authorized [id number] Closed 1 1 Health Concerns Infection Onset Date Last Indicated Resolved Time COVID-19 Rule-Out 11/12/2021 11/12/2021 11/13/2021 3:44 AM EDT Additional Source Comments INFORMATION SOURCE (unrecogn ized section and content) DATE CREATED AUTHOR 07/02/2020 [facility] DATE CREATED AUTHOR AUTHOR'S ORGANIZ ATION 11/14/2021 [facility] DATE CREATED AUTHOR AUTHOR'S ORGANIZ ATION 03/22/2022 [facility] DATE CREATED AUTHOR AUTHOR'S ORGANIZ ATION 10/19/2023 [facility] Source Comments (unrecognize d section and content) In the event this informatio n is protected by the Federal Confidentiality of Alcohol and Drug Abuse Patient Records regulations: The Federal rules restrict any use of the information to criminally investigate or prosecute any alcohol or drug abuse patient.[facility] the event this information is protected by the Federal Confidentiality of Alcohol and Drug Abuse Patient Records regulations: The Federal rules restrict any use of the information to criminally investigate or prosecute any alcohol or drug abuse patient.[facility] CenterIn the event this information is protected by the Federal Confidentiality of Alcohol and Drug Abuse Patient Records regulations: The Federal rules restrict any use of the information to criminally investigate or prosecute any alcohol or drug abuse patient.[facility] CenterIn the event this information is protected by the Federal Confidentiality of Alcohol and Drug Abuse Patient Records regulations: The Federal rules restrict any use of the information to criminally investigate or prosecute any alcohol or drug abuse patient.[facility] CenterIn the event this information is protected by the Federal Confidentiality of Alcohol and Drug Abuse Patient Records regulations: The Federal rules restrict any use of the information to criminally investigate or prosecute any alcohol or drug abuse patient.[facility] CenterIn the event this information is protected by the Federal Confidentiality of Alcohol and Drug Abuse Patient Records regulations: The Federal rules restrict any use of the information to criminally investigate or prosecute any alcohol or drug abuse patient.[facility] CenterIn the event this information is protected by the Federal Confidentiality of Alcohol and Drug Abuse Patient Records regulations: The Federal rules restrict any use of the information to criminally investigate or prosecute any alcohol or drug abuse patient.[facility] CenterIn the event this information is protected by the Federal Confidentiality of Alcohol and Drug Abuse Patient Records regulations: The Federal rules restrict any use of the information to criminally investigate or prosecute any alcohol or drug abuse patient.[facility] CenterIn the event this information is protected by the Federal Confidentiality of Alcohol and Drug Abuse Patient Records regulations: The Federal rules restrict any use of the information to criminally investigate or prosecute any alcohol or drug abuse patient.[facility] CenterIn the event this information is protected by the Federal Confidentiality of Alcohol and Drug Abuse Patient Records regulations: The Federal rules restrict any use of the information to criminally investigate or prosecute any alcohol or drug abuse patient.[facility] CenterIn the event this information is protected by the Federal Confidentiality of Alcohol and Drug Abuse Patient Records regulations: The Federal rules restrict any use of the information to criminally investigate or prosecute any alcohol or drug abuse patient.[facility] CenterIn the event this information is protected by the Federal Confidentiality of Alcohol and Drug Abuse Patient Records regulations: The Federal rules restrict any use of the information to criminally investigate or prosecute any alcohol or drug abuse patient.[facility] CenterIn the event this information is protected by the Federal Confidentiality of Alcohol and Drug Abuse Patient Records regulations: The Federal rules restrict any use of the information to criminally investigate or prosecute any alcohol or drug abuse patient.[facility] CenterIn the event this information is protected by the Federal Confidentiality of Alcohol and Drug Abuse Patient Records regulations: The Federal rules restrict any use of the information to criminally investigate or prosecute any alcohol or drug abuse patient.[facility] CenterIn the event this information is protected by the Federal Confidentiality of Alcohol and Drug Abuse Patient Records regulations: The Federal rules restrict any use of the information to criminally investigate or prosecute any alcohol or drug abuse patient.[facility] CenterIn the event this information is protected by the Federal Confidentiality of Alcohol and Drug Abuse Patient Records regulations: The Federal rules restrict any use of the information to criminally investigate or prosecute any alcohol or drug abuse patient.[facility] CenterIn the event this information is protected by the Federal Confidentiality of Alcohol and Drug Abuse Patient Records regulations: The Federal rules restrict any use of the information to criminally investigate or prosecute any alcohol or drug abuse patient.[facility] CenterIn the event this information is protected by the Federal Confidentiality of Alcohol and Drug Abuse Patient Records regulations: The Federal rules restrict any use of the information to criminally investigate or prosecute any alcohol or drug abuse patient.[facility] CenterIn the event this information is protected by the Federal Confidentiality of Alcohol and Drug Abuse Patient Records regulations: The Federal rules restrict any use of the information to criminally investigate or prosecute any alcohol or drug abuse patient.[facility] CenterIn the event this information is protected by the Federal Confidentiality of Alcohol and Drug Abuse Patient Records regulations: The Federal rules restrict any use of the information to criminally investigate or prosecute any alcohol or drug abuse patient.[facility] CenterIn the event this information is protected by the Federal Confidentiality of Alcohol and Drug Abuse Patient Records regulations: The Federal rules restrict any use of the information to criminally investigate or prosecute any alcohol or drug abuse patient.[facility] CenterIn the event this information is protected by the Federal Confidentiality of Alcohol and Drug Abuse Patient Records regulations: The Federal rules restrict any use of the information to criminally investigate or prosecute any alcohol or drug abuse patient.[facility] CenterIn the event this information is protected by the Federal Confidentiality of Alcohol and Drug Abuse Patient Records regulations: The Federal rules restrict any use of the information to criminally investigate or prosecute any alcohol or drug abuse patient.[facility] CenterIn the event this information is protected by the Federal Confidentiality of Alcohol and Drug Abuse Patient Records regulations: The Federal rules restrict any use of the information to criminally investigate or prosecute any alcohol or drug abuse patient.[facility] CenterIn the event this information is protected by the Federal Confidentiality of Alcohol and Drug Abuse Patient Records regulations: The Federal rules restrict any use of the information to criminally investigate or prosecute any alcohol or drug abuse patient.[facility] CenterIn the event this information is protected by the Federal Confidentiality of Alcohol and Drug Abuse Patient Records regulations: The Federal rules restrict any use of the information to criminally investigate or prosecute any alcohol or drug abuse patient.[facility] CenterIn the event this information is protected by the Federal Confidentiality of Alcohol and Drug Abuse Patient Records regulations: The Federal rules restrict any use of the information to criminally investigate or prosecute any alcohol or drug abuse patient.[facility] CenterIn the event this information is protected by the Federal Confidentiality of Alcohol and Drug Abuse Patient Records regulations: The Federal rules restrict any use of the information to criminally investigate or prosecute any alcohol or drug abuse patient.[facility] CenterIn the event this information is protected by the Federal Confidentiality of Alcohol and Drug Abuse Patient Records regulations: The Federal rules restrict any use of the information to criminally investigate or prosecute any alcohol or drug abuse patient.[facility] CenterIn the event this information is protected by the Federal Confidentiality of Alcohol and Drug Abuse Patient Records regulations: The Federal rules restrict any use of the information to criminally investigate or prosecute any alcohol or drug abuse patient.[facility] CenterIn the event this information is protected by the Federal Confidentiality of Alcohol and Drug Abuse Patient Records regulations: The Federal rules restrict any use of the information to criminally investigate or prosecute any alcohol or drug abuse patient.[facility] CenterIn the event this information is protected by the Federal Confidentiality of Alcohol and Drug Abuse Patient Records regulations: The Federal rules restrict any use of the information to criminally investigate or prosecute any alcohol or drug abuse patient.[facility] CenterIn the event this information is protected by the Federal Confidentiality of Alcohol and Drug Abuse Patient Records regulations: The Federal rules restrict any use of the information to criminally investigate or prosecute any alcohol or drug abuse patient.[facility] Care Teams (unrecognized sec tion and content) Anode Rebuilder Relationship Specialty Start Date End Date Patti Valdez MD [address] [place] [address] PCP - General Family Practice 06/16/20 Reed Leon MD [address] [place] [address] Primary Staff Physician Cardiology 11/08/20 Anode Rebuilder Relationship Specialty Start Date End Date Patti Valdez MD [address] [place] [address] PCP - General Family Practice 06/16/20 Reed Leon MD [address] [place] [address] Primary Staff Physician Cardiology 11/08/20 Anode Rebuilder Relationship Specialty Start Date End Date Patti Valdez MD [address] [place] [address] PCP - General Family Practice 06/16/20 Reed Leon MD [address] [place] [address] Primary Staff Physician Cardiology 11/08/20 Anode Rebuilder Relationship Specialty Start Date End Date Patti Valdez MD [address] [place] [address] PCP - General Family Practice 06/16/20 Reed Leon MD [address] [place] [address] Primary Staff Physician Cardiology 11/08/20 Anode Rebuilder Relationship Specialty Start Date End Date Patti Valdez MD [address] [place] [address] PCP - General Family Practice 06/16/20 Reed Leon MD [address] [place] [address] Primary Staff Physician Cardiology 11/08/20 Anode Rebuilder Relationship Specialty Start Date End Date Patti Valdez MD [address] [place] [address] PCP - General Family Practice 06/16/20 Reed Leon MD [address] [place] [address] Primary Staff Physician Cardiology 11/08/20 Anode Rebuilder Relationship Specialty Start Date End Date Patti Valdez MD [address] [place] [address] PCP - General Family Practice 06/16/20 Reed Leon MD [address] [place] [address] Primary Staff Physician Cardiology 11/08/20 Anode Rebuilder Relationship Specialty Start Date End Date Patti Valdez MD [address] [place] [address] PCP - General Family Practice 06/16/20 Reed Leon MD [address] [place] [address] Primary Staff Physician Cardiology 11/08/20 Anode Rebuilder Relationship Specialty Start Date End Date Patti Valdez MD [address] [place] [address] PCP - General Family Practice 06/16/20 Reed Leon MD [address] [place] [address] Primary Staff Physician Cardiology 11/08/20 Anode Rebuilder Relationship Specialty Start Date End Date Patti Valdez MD [address] [place] [address] PCP - General Family Practice 06/16/20 Reed Leon MD [address] [place] [address] Primary Staff Physician Cardiology 11/08/20 Anode Rebuilder Relationship Specialty Start Date End Date Patti Valdez MD [address] [place] [address] PCP - General Family Practice 06/16/20 Reed Leon MD [address] [place] [address] Primary Staff Physician Cardiology 11/08/20 Anode Rebuilder Relationship Specialty Start Date End Date Patti Valdez MD [address] [place] [address] PCP - General Family Practice 06/16/20 Reed Leon MD [address] [place] [address] Primary Staff Physician Cardiology 11/08/20 Anode Rebuilder Relationship Specialty Start Date End Date Patti Valdez MD [address] [place] [address] PCP - General Family Practice 06/16/20 Reed Leon MD [address] [place] [address] Primary Staff Physician Cardiology 11/08/20 Anode Rebuilder Relationship Specialty Start Date End Date Patti Valdez MD [address] [place] [address] PCP - General Family Medicine 06/16/20 Reed Leon MD [address] [place] [address] Primary Staff Physician Cardiology 11/08/20 Anode Rebuilder Relationship Specialty Start Date End Date Patti Valdez MD [address] [place] [address] PCP - General Family Medicine 06/16/20 Reed Leon MD [address] [place] [address] Primary Staff Physician Cardiology 11/08/20 Anode Rebuilder Relationship Specialty Start Date End Date Patti Valdez MD [address] [place] [address] PCP - General Family Medicine 06/16/20 Reed Leon MD [address] [place] [address] Primary Staff Physician Cardiology 11/08/20 Anode Rebuilder Relationship Specialty Start Date End Date Patti Valdez MD PCP - General Family Medicine 06/16/20 Reed Leon MD [address] [place] [address] Primary Staff Physician Cardiology 11/08/20 Anode Rebuilder Relationship Specialty Start Date End Date Patti Valdez MD PCP - General Family Medicine 06/16/20 Reed Leon MD [address] [place] [address] Primary Staff Physician Cardiology 11/08/20 Anode Rebuilder Relationship Specialty Start Date End Date Patti Valdez MD PCP - General Family Medicine 06/16/20 Reed Leon MD [address] [place] [address] Primary Staff Physician Cardiology 11/08/20 Anode Rebuilder Relationship Specialty Start Date End Date Patti Valdez MD PCP - General Family Medicine 06/16/20 Reed Leon MD [address] [place], [place] [id number] Primary Staff Physician Cardiology 11/08/20 Reason for [...] Reason Comments cmn Reason Comments Rx Refills Reason Comments Research FOR RECORDS PERTAINING TO PATIENTS WHO ARE [...] BE BASED ON THE PRIMARY CLINICAL RECORDS. [facility]. provides no warranty or guarantee of the accuracy or completeness of information in this document.
== END 2024-02-24 13:23 | disposition home or self-care (01) ==
LOC: MAMMO 13:22
PROVIDERS: PCP Family Medicine; Visit Provider Family Medicine
DX: Z00.00 Encounter for general adult medical examination without abnormal findings (principal); Z80.3 Family history of malignant neoplasm of breast
CPT/HCPCS: 77063; 77067

== ENCOUNTER 2024-10-19 09:35 | Emergency (ER) | payer BC, SELFPAY ==
--- OUTSIDE RECORDS SUMMARY | 2024-07-29 07:15 | XMS_ITS ---
Author Organization The [facility] in [place] Address [address] [place] [address] Care Team Providers Care Senior Medical Director Name Role Phone Abad Swann Primary Care Provider Allergies No Known Allergies REASON FOR VISIT 3mon, Left shoulder pain- couple weeks- no known injury, Wants to see if can try Ipratropium nasal spray for constant drippy nose- other nasal spray didnt help Medications Medication SIG (Take, Route, Frequency, Duration) Notes Start Date End Date Status Pantoprazole Sodium 40 MG TAKE 1 TABLET BY MOUTH EVERY DAY for 90 days Active Jardiance 10 MG TAKE 1 TABLET BY JEET TH ONCE DAILY for 90 Active Vitamin D (Cholecalciferol) 50 MCG (1999) 2 capsule Orally Once a day Active Vitamin B + C Complex - as directed Orally Active Meclizine HCl 25 MG 1 tablet as needed O rally Q 6 hours 07/29/2024 Active Ezetimibe 10 MG TAKE 1 TABLET BY JEET TH ONCE DAILY for 90 Active Entresto 24-26 MG 1 tablet Orally Twic e a day Active Isosorbide Mononitrate ER 60 MG TAKE 1 TABLET BY MOUTH ONCE DAILY for 30 days Active Colesevelam HCl 625 MG TAKE 4 TABLETS BY MOUTH ONCE DAILY for 90 Active Carvedilol 25 MG TAKE 1 TABLET BY JEET TH TWICE DAILY for 90 Active Azelastine HCl 137 MCG/SPRAY 1 spray each nostril Nasally daily 04/30/2024 Active Atorvastatin Calcium 80 MG TAKE 1 TABLET BY MOUTH ONCE DAILY for 90 Active Meloxicam 15 MG 1 tablet Orally Once a day for 30 days 07/29/2024 Active Social History Tobacco Use: Social History Observation Description Date Details (start date - stop date) Former Smoker 05/20/1980 - 05/20/1982 Tobacco Use/Smoking Question Answer Notes Patient is a former smoker When did you start smoking? 05/20/1980 When did you stop smoking? 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 I50.41 ; Hypertension I10 ; Diabetes mellitus E11.9 ; Shoulder pain, left M25.512 and Well adult Z00.00 Assessments Encounter Date Diagnosis (ICD Code) Assessment Notes Treatment Notes Treatment Clinical Notes Section Notes 07/29/2024 Acute combined systolic (congestive) and diastolic (congestive) heart failure (ICD-10 - I50.41) 07/29/2024 Hypertension (ICD-10 - I10) 07/29/2024 Diabetes mellitus (ICD-10 - E11.9) 07/29/2024 Shoulder pain, left (ICD-10 - M25.512) 07/29/2024 Well adult (ICD-10 - Z00.00) Plan Of Treatment Medication Medication Name Sig Start Date Stop Date Notes Meclizine HCl 25 MG 1 tablet as needed Orally Q 6 hours Meloxicam 15 MG 1 tablet Orally Once a day for 30 days 04/2025 Pending Test Test Name Order Date HEMOGLOBIN A1C (GLYCO) 07/29/2024 IRON, TOTAL 07/29/2024 LIPID PANEL (CHOL/TRIG/HDL/LDL) 07/30/19 25 VITAMIN D, 25 LEVEL (TOTAL) 07/29/2024 THYROID PANEL (T4/TSH/FREE T3) CMP (COMP MET MILLER) w/eGFR CKD-EPI 2024 CBC WITH DIFF 07/29/2024 Next Appt Details Provider Name:Abad Avilez Shree, 01:00:00 PM, [address] [place], [address], Progress Notes * Angie SERRA MDOB:1965 (59 yo F)Acc No.[id number]:07/29/2024 Progress Note Patient: Angie BROWN Provider: Bandar Swann ([facility])MD :1965 A ge:59 Y S ex:Female Date:07/29/2024 Address:[address] [place] [address] [address], [facility] Check In:11:14 AM ESTCheck O ut:11:50 AM EST Subjective: * Chief Complaints: * 3 monLeft shoulder pain- couple weeks- no known injuryWants to see if can try Ipratropium nasal spray for constant drippy nose- other nasal spray didnt help * HPI: D epression Screening: PHQ-2 (2015 Edition) T otal Score 0 L ittle interest or pleasure in doing things??Not at all F eeling down, depressed, or hopeless? N ot at all Left shoulder - pain - no old injry to shoulder vertigo from time to time diabetes - stable - 120's Hypertension - stable now. * ROS: E ENT: hearing changes d enies. v isual changes d enies.?non-healing mouth sores d enies. s wollen glands or neck lumps d enies. h oarseness d enies. s ore throat d enies. d ifficulty swallowing d enies. n ose bleeds d enies. n yuniel congestion d enies. e ar ache d enies. e ar discharge?denies. r inging in ears d enies. l ight sensitivity d enies. e ye pain d enies. b lurring d enies. e ye irritation d enies. d ouble vision d enies.?vision loss d enies. G eneral/Constitutional: Sweats: D enies. F atigue d enies. S leep problems d enies. A norexia d enies. M alaise d enies. W eight loss d enies.?Fatigue or Weakness d enies. F ever or Chills d enies. C ardiovascular: Shortness of Breath w/lying flat d enies. L ightheadedness/dizziness d enies. C hest tightness/ heavy pressure d enies. S welling of legs, ankles, or feet d enies. W aking up with shortness of breath d enies. C hest pain denies. P alpitations d enies. W eight gain d enies. R espiratory: Chronic or frequent cough d enies. C oughing up blood?denies. D ifficulty breathing d enies. P roductive cough d enies. S noring?denies. S hortness of breath that awakens from sleep (PND) d enies. C hest pain d enies. S putum production d enies. W heezing d enies. M usculoskeletal: Joint pain d enies. J oint Fluid d enies. B ack pain d enies. K nee pain d enies. N julienne pain d enies. J oint Stiffness d enies. M uscle cramps d enies. W eakness of muscles d enies. A rthritis d enies. M uscle aches d enies. P ain in shoulder(s) d enies. S wollen joints d enies. 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 Modified On:11/09/2022 Status:confirmed E78.1 Hypertriglyceridemia Modified On:11/09/2022 Status:confirmed H91.90 Hearing deficit Modified On:06/23/2023W/U Status:confirmed I49.3 Unifocal PVCs Modified On:11/09/2022/U Status:confirmed I73.00 Raynaud's disease Modified On:11/09/2022/U Status:confirmed Z00.00 Well adult Modified On:11/09/2022/U Status:confirmed E11.9 Diabetes mellitus Modified On:04/30/2024/U Status:confirmed M47.812 Cervical arthritis Modified On:04/30/2024/U Status:confirmed M25.512 Shoulder pain, left Modified On:07/29/2024/U Status:confirmed * Medical History: * Surgical History: H eart Cath, Dr. Cohn 09/2010Cholecystectomy Hysterectomy, total Cardiac Stent T&A Left Total hip * Hospitalization/Major Diagno stic Procedure: D enies Past Hospitalization * Family History: F ather: alive, diagnosed with Diabetes mellitus without mention of complication, type II or unspecified type, not stated as uncontrolled, Unspecified essential hypertension, Unspecified heart disease. M other: alive, diagnosed with Diabetes mellitus without mention of complication, type II or unspecified type, not stated as uncontrolled, Unspecified essential hypertension. B rother(s): alive, Cardiac stents and pacemaker, diagnosed with Diabetes mellitus without mention of complication, type II or unspecified type, not stated as uncontrolled, Unspecified essential hypertension. Sister(s): alive, diagnosed with Diabetes mellitus without mention of complication, type II or unspecified type, not stated as uncontrolled, Unspecified essential hypertension. S on(s): alive. D toñaer(s): alive, diagnosed with Diabetes mellitus without mention of complication, type II or unspecified type, not stated as uncontrolled, Unspecified essential hypertension. 2 brother(s) , 1 sister(s) . 1 son(s) , 1 daughter(s) - healthy. . * Social History: T obacco Use: T obacco Use/Smoking P atient is a f ormer smoker W hen did you start smoking? 0 05/20/1980 W hen did you stop smoking? 0 05/20/1982 * Medications: T akingAtorvastatin Calcium 80 MG Tablet TAKE 1 TABLET BY MOUTH ONCE DAILY Azelastine HCl 137 MCG/SPRAY Solution 1 spray each nostril Nasally daily Carvedilol 25 MG Tablet TAKE 1 TABLET BY MOUTH TWICE DAILY Colesevelam HCl 625 MG Tablet TAKE 4 TABLETS BY MOUTH ONCE DAILY Entresto(Sacubitril-Valsartan) 24-26 MG Tablet 1 tablet Orally Twice a day Ezetimibe 10 MG Tablet TAKE 1 TABLET BY MOUTH ONCE DAILY Isosorbide Mononitrate ER 60 MG Tablet Extended Release 24 Hour TAKE 1 TABLET BY MOUTH ONCE DAILY Jardiance(Empagliflozin) 10 MG Tablet TAKE 1 TABLET BY MOUTH ONCE DAILY Pantoprazole Sodium 40 MG Tablet Delayed Release TAKE 1 TABLET BY MOUTH EVERY DAY Vitamin B + C Complex - Tablet as directed Orally Vitamin D (Cholecalciferol) 50 MCG (1999 UT) Capsule 2 capsule Orally Once a day Medication List reviewed and reconciled with the patientTaking Atorvastatin Calcium 80 MG Tablet TAKE 1 TABLET BY MOUTH ONCE DAILY Taking Azelastine HCl 137 MCG/SPRAY Solution 1 spray each nostril Nasally daily Taking Carvedilol 25 MG Tablet TAKE 1 TABLET BY MOUTH TWICE DAILY Taking Colesevelam HCl 625 MG Tablet TAKE 4 TABLETS BY MOUTH ONCE DAILY Taking Entresto(Sacubitril-Valsartan) 24-26 MG Tablet 1 tablet Orally Twice a day Taking Ezetimibe 10 MG Tablet TAKE 1 TABLET BY MOUTH ONCE DAILY Taking Isosorbide Mononitrate ER 60 MG Tablet Extended Release 24 Hour TAKE 1 TABLET BY MOUTH ONCE DAILY Taking Jardiance(Empagliflozin) 10 MG Tablet TAKE 1 TABLET BY MOUTH ONCE DAILY Taking Pantoprazole Sodium 40 MG Tablet Delayed Release TAKE 1 TABLET BY MOUTH EVERY DAY Taking Vitamin B + C Complex - Tablet as directed Orally Taking Vitamin D (Cholecalciferol) 50 MCG (1999 UT) Capsule 2 capsule Orally Once a day Medication List reviewed and reconciled with the patient * Allergies: N .K.D.A.no[Allergies Verified] Objective: * Vitals: W t:176.2lbs, Ht: 65 in, BP:108/64mm Hg, BMI:29.32Index, Ht-cm: 165.1 cm, Wt-k.92 kg. * Examination: P hysical Exam: GENERAL: w ell developed, well nourished, in no acute distress. HEAD: n ormocephalic/atraumatic. EYES: p upils equal, round and reactive to light, conjunctivae and sclerae normal. EARS: n o deformity or lesion of external ear, canals and TM appear normal bilaterally, TM's intact, not inflamed with normal light reflex, hearing grossly normal to conversational speech. NOSE: n o deformity, discharge, inflammation, or lesions.? MOUTH: m ucous membranes moist, normal oropharynx and posterior pharynx without lesions or exudates, tongue normal, dentition normal. NECK: n julienne supple, no masses or palpable cervical nodes, trachea midline, thyroid without nodules, masses, tenderness, or enlargement. CHEST: n o chest wall deformity, no chest wall tenderness.? LUNGS: n ormal respiratory effort and clear to auscultation, no wheezes, rales, or rhonchi, good air exchange. CARDIO: r egular rate and rhythm, normal S1 and S2, nor murmur, rub, or gallop. PULSES: n ormal capillary refill. ABDOMEN: s oft, non-distended, non-tender, no masses. MUSCULOSKELETAL: n o deformity or scoliosis noted, normal range of motion, joints normal, no erythema, edema, effusion, or ecchymosis. EXTREMITY: n o clubbing, cyanosis, edema, or deformity with normal ROM in both upper and lower bilateral extremities. NEUROLOGIC: g rossly normal. SKIN: n o rashes, ulcerations, or suspicious lesions. LYMPH NODES: n o cervical adenopathy, nodes normal. MENTAL STATUS: a lert and oriented x3, normal mood and affect. Assessment: * Assessment: 1. 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 H ypertension - I10 3 . D iabetes mellitus - E11.9? 4. S houlder pain, left - M25.512 5 . W [facility] adult - Z00.00? Plan: * Treatment: 2. W [facility] adult Start Meclizine HCl Tablet, 25 MG, 1 tablet as needed, Orally, Q 6 hours, 30, Refills 11. ? L AB: HEMOGLOBIN A1C (GLYCO) L AB: IRON, TOTAL L AB: LIPID PANEL (CHOL/TRIG/HDL/LDL) L AB: VITAMIN D, 25 LEVEL (TOTAL) L AB: THYROID PANEL (T4/TSH/FREE T3) L AB: CMP (COMP MET MILLER) w/eGFR CKD-EPI L AB: CBC WITH DIFF * Procedure Codes: * Preventive Medicine: Screenings/Counseling: B KS ACTION PLAN Above Normal BMI Follow-up D ietary management education, guidance, and counseling * * Sign off status: Completed Visit Status: C HK (Check Out) true * Provider: Bandar Swann ([facility])MD Date: 0 07/29/2024 Generated for Printi ng/Faxing/eTransmitting on: 0 10/19/2024 09:40 AM EDT History and Physical Notes * HPI (History of Present Illness) Category Sub-Category Detail Notes Category Not es Depression Screening PHQ-2 (2015 Edition) Total Score: 0 Left shoulder - pain - no old injry to shoulder vertigo from time to time diabetes - stable - 120's Hypertension - stable now Little interest or pleasure in doing thi ngs?: Not at all Feeling down, depressed, or hopeless?: N ot at all Examination Category Sub-Category Detail Notes Category Not es Physical Exam GENERAL: well developed, well nourished, in no acute distress HEAD: normocephalic/atraum atic EYES: pupils equal, round and reactive to light, conjunctivae and sclerae normal EARS: no deformity or lesi on of external ear, canals and TM appear normal bilaterally, TM's intact, not inflamed with normal light reflex, hearing grossly normal to conversational speech NOSE: no deformity, discha rge, inflammation, or lesions MOUTH: mucous membranes pipe st, normal oropharynx and posterior pharynx without lesions or exudates, tongue normal, dentition normal NECK: neck supple, no mass es or palpable cervical nodes, trachea midline, thyroid without nodules, masses, tenderness, or enlargement CHEST: no chest wall deform ity, no chest wall tenderness LUNGS: normal respiratory e ffort and clear to auscultation, no wheezes, rales, or rhonchi, good air exchange CARDIO: regular rate and rhy thm, normal S1 and S2, nor murmur, rub, or gallop PULSES: normal capillary ref ill ABDOMEN: soft, non-distended, non-tender, no masses RECTAL: MUSCULOSKELETAL: no deformity or scol iosis noted, normal range of motion, joints normal, no erythema, edema, effusion, or ecchymosis EXTREMITY: no clubbing, cyanosi s, edema, or deformity with normal ROM in both upper and lower bilateral extremities NEUROLOGIC: grossly normal SKIN: no rashes, ulceratio ns, or suspicious lesions LYMPH NODES: no cervical adenopat hy, nodes normal MENTAL STATUS: alert and oriented x 3, normal mood and affect
--- OUTSIDE RECORDS SUMMARY | 2024-08-26 09:49 | XMS_ITS ---
Author Organization [facility] in [place] Address [address] [place] [address] Care Team Providers Care Safe Deposit Attendant Name Role Phone Abad Swann Primary Care Provider [phone] REASON FOR VISIT Refill- Medications Medication SIG (Take, Route, Frequency, Duration) Notes Start Date End Date Status Ezetimibe 10 MG TAKE 1 TABLET BY JEET TH ONCE DAILY for 90 Unknown Isosorbide Mononitrate ER 60 MG TAKE 1 TABLET BY MOUTH ONCE DAILY for 30 days Unknown Jardiance 10 MG TAKE 1 TABLET BY JEET TH ONCE DAILY for 90 Unknown Meclizine HCl 25 MG 1 tablet as needed Orally Q 6 hours 07/29/2024 Unknown Meloxicam 15 MG 1 tablet Orally Once a day for 30 days 07/29/2024 Unknown Azelastine HCl 137 MCG/SPRAY 1 spray each nostril Nasally daily 04/30/2024 Unknown Carvedilol 25 MG TAKE 1 TABLET BY JEET TH TWICE DAILY for 90 Unknown Colesevelam HCl 625 MG TAKE 4 TABLETS BY MOUTH ONCE DAILY for 90 Unknown Entresto 24-26 MG 1 tablet Orally Twic e a day Unknown Atorvastatin Calcium 80 MG TAKE 1 TABLET BY MOUTH ONCE DAILY for 90 Unknown Vitamin B + C Complex - as directed Orally Unknown Vitamin D (Cholecalciferol) 50 MCG (1999 UT) 2 capsule Orally Once a day Unknown Ipratropium [place] 0.06 % 2 sprays in e ach nostril Nasally twice a day for 30 days 08/26/2024 Active Pantoprazole Sodium 40 MG TAKE 1 TABLET BY MOUTH EVERY DAY for 90 days Unknown Encounters Encounter Location Date Provider Diagnosis [facility] [address] [place] [address] 08/26/2024 Abad Swann Plan Of Treatment Medication Medication Name Sig Start Date Stop Date Notes Ipratropium [place] 0.06 % 2 sprays in e ach nostril Nasally twice a day for 30 days 08/26/2024 Next Appt Details Provider Name:Abad Swann, 01:00:00 PM, [address] [place], [address], Progress Notes * Angie SERRA MDOB:1965 (59 yo F)Acc No.[id number]:08/26/2024 Patient: Jennifer Angie OLVERA :1965 A ge:59 Y S ex:Female Address:[address] [place] [address], [place], [address] * Refills Start Ipratropium [place] Solution, 0.06 %, Nasally, 1 Each, 2 sprays in each nostril, twice a day, 30 days, Refills=5 Subjective: * Chief Complaints: * R efill- * Medical History: * Surgical History: * Hospitalization/Major Diagno stic Procedure: * Medications: U nknownAtorvastatin Calcium 80 MG Tablet TAKE 1 TABLET [...] TAKE 1 TABLET BY MOUTH ONCE DAILY Meclizine HCl 25 MG Tablet 1 tablet as needed Orally Q 6 hours Meloxicam 15 MG Tablet 1 tablet Orally Once a day Pantoprazole Sodium 40 MG Tablet Delayed Release TAKE 1 TABLET BY MOUTH EVERY DAY Vitamin B + C Complex - Tablet as directed Orally Vitamin D (Cholecalciferol) 50 MCG (2000 UT) Capsule 2 capsule Orally Once a day Unknown Atorvastatin Calcium 80 MG Tablet TAKE 1 TABLET BY MOUTH ONCE DAILY Unknown Azelastine HCl 137 MCG/SPRAY Solution 1 spray each nostril Nasally daily Unknown Carvedilol 25 MG Tablet TAKE 1 TABLET BY MOUTH TWICE DAILY Unknown Colesevelam HCl 625 MG Tablet TAKE 4 TABLETS BY MOUTH ONCE DAILY Unknown Entresto(Sacubitril-Valsartan) 24-26 MG Tablet 1 tablet Orally Twice a day Unknown Ezetimibe 10 MG Tablet TAKE 1 TABLET BY MOUTH ONCE DAILY Unknown Isosorbide Mononitrate ER 60 MG Tablet Extended Release 24 Hour TAKE 1 TABLET BY MOUTH ONCE DAILY Unknown Jardiance(Empagliflozin) 10 MG Tablet TAKE 1 TABLET BY MOUTH ONCE DAILY Unknown Meclizine HCl 25 MG Tablet 1 tablet as needed Orally Q 6 hours Unknown Meloxicam 15 MG Tablet 1 tablet Orally Once a day Unknown Pantoprazole Sodium 40 MG Tablet Delayed Release TAKE 1 TABLET BY MOUTH EVERY DAY Unknown Vitamin B + C Complex - Tablet as directed Orally Unknown Vitamin D (Cholecalciferol) 50 MCG (1999) Capsule 2 capsule Orally Once a day Objective: * Vitals: * Physical Examination: Assessment: Plan: * Treatment: * Procedure Codes: * true * Date: Generated for Ynes sena/Anton/Suleiman on: 10/19/2024 09:39 AM EDT
--- OUTSIDE RECORDS SUMMARY | 2024-10-02 05:27 | XMS_ITS ---
Author Organization [facility] in [place] Address [address] [place] [address] Care Team Providers Care Director Of Application Development Name Role Phone Abad Swann Primary Care Provider REASON FOR VISIT med refill Medications Medication SIG (Take, Route, Frequency, Duration) Notes Start Date End Date Status Carvedilol 25 MG TAKE 1 TABLET BY JEET TH TWICE DAILY for 90 Active Atorvastatin Calcium 80 MG TAKE 1 TABLET BY MOUTH ONCE DAILY for 90 Active Encounters Encounter Location Date Provider Diagnosis [facility] [address] [place] [address] 10/02/2024 Abad Swann Plan Of Treatment Medication Medication Name Sig Start Date Stop Date Notes Carvedilol 25 MG TAKE 1 TABLET BY JEET TH TWICE DAILY for 90 Atorvastatin Calcium 80 MG TAKE 1 TABLET BY MOUTH ONCE DAILY for 90 Next Appt Details Provider Name:Abad Avilez Shree, 01:00:00 PM, [address] [place], [address], Progress Notes * Angie SERRA MDOB:1965 (59 yo F)Acc No.[id number]:10/02/2024 Patient: Angie BROWN :1965 A ge:59 Y S ex:Female Address:[address] [place] [address] [address], [place], [address] * Refills Refill Atorvastatin Calcium Tablet, 80 MG, 90 Tablet, TAKE 1 TABLET BY MOUTH ONCE DAILY, 90, Refills=3 Refill Carvedilol Tablet, 25 MG, 180 Tablet, TAKE 1 TABLET BY MOUTH TWICE DAILY, 90, Refills=2 * true * Date: Generated for Ynes sena/Anton/Suleiman on: 0 10/19/2024 09:41 AM EDT
[2024-10-19] VITALS (7 sets, daily range): BP systolic 122–149; BP diastolic 73–77; PULSE 79–84; TEMP 37.2; O2SAT 96–97
--- OUTSIDE RECORDS SUMMARY | 2024-10-19 09:40 | XMS_ITS | Encounter Summary ---
Author Organization [facility] Address [address] [place] [address] Care Team Providers Care Analytical Data Miner Name Role Phone Noah Swann MD Primary Care Provider [phone] Reed Leon MD Unavailable [phone] Source Comments In the event this information is protected by the Federal Confidentiality of Alcohol and Drug AbusePatient Records regulations: The Federal rules restrict any use of the information to criminally investigate or prosecute any alcohol or drug abuse patient.[facility] Encounter Details Date Type Department Care Team (Late st Contact Info) Description 01/09/2021 Get Medical Advice General Surgery [address] [phone] Radha Cameron, WIND TURBINE SHEET METAL WORKER.ELECTRONIC INSTRUMENT TRADES WORKER [address] [place], [place] [phone] RE: Non-Urgent Medical Question Social History Tobacco Use Types Packs/Day Years Used Date Smoking Tobacco: Former Cigarettes 0.5 7 0 07/14/1969 - 07/14/1976 Smokeless Tobacco: Never Alcohol Use Standard Drinks/Week Comments Yes 0 (1 standard drink = 0.6 oz pur e alcohol) occasionally PHQ-2 Answer Date Recorded PHQ-2 score 0 06/24/2020 Area Deprivation Index Answer Date Jamey rded National Score (1-100), lower number is lower ri sk Not on file 06/08/2020 State Score (1-10), lower number is lower risk N ot on file 06/08/2020 Data from: https://www.neighborhoodatlas.medicine.[facility]/. Last address used for calculation Not on file 06/08/2020 Comments No Sex and Gender Information Value Date Recorded Sex Assigned at Female 06/02/2020 12:02 PM EST Legal Sex Female 2:39 PM EST Gender Identity Female 06/02/2020 12:02 PM EST Sexual Orientation Straight 06/02/2020 12 :02 PM EST COVID-19 Exposure Response Date Recorded In the last month, have you been in contact with someone who was confirmed or suspected to have Coronavirus / COVID-19? No / Unsure 01/10/2021 10:55 AM EDT documented as of this encounter Functional Status * Are you deaf or do you have serious difficulty hearing? Answer Date of Assessment Author No 10/07/2020 9:19 AM EDT Margaux Lan RN * Are you blind or do you have serious difficulty seeing, even when wearing glasses? Answer Date of Assessment Author No 10/07/2020 9:19 AM EDT Margaux Lan RN * Do you have serious difficulty walking or climbing stairs? Answer Date of Assessment Author No 10/07/2020 9:19 AM EDT Margaux Lan RN * Do you have difficulty dressing or bathing? Answer Date of Assessment Author No 10/07/2020 9:19 AM EDT Margaux Lan RN * Because of a physical, mental, or emotional condition, do you have difficulty doing errands alone such as visiting a doctor's office or shopping? Answer Date of Assessment Author No 10/07/2020 9:19 AM EDT Margaux Lan RN documented as of this encounter Mental Status * Because of a physical, mental, or emotional condition, do you have serious difficulty concentrating, remembering, or making decisions? Answer Entry Date Author No 10/07/2020 9:19 AM ARVINDT Margaux Lan RN documented in this encounter Plan of Treatment Upcoming Encounters Date Type Department Care Team (Late st Contact Info) Description 01/25/2025 10:00 AM EDT Office Visit Cardiology [address] [place] [address] Heart failure with preserved ejection fraction, unspecified HF chronicity (HCC) [I50.30] 01/25/2025 11:30 AM EDT Results Only [facility] [address] [place] [address] Heart failure with preserved ejection fraction, unspecified HF chronicity (HCC) [I50.30] 01/25/2025 12:30 PM EDT Office Visit Cardiology [address] [address] Heart failure with preserved ejection fraction, unspecified HF chronicity (HCC) [I50.30] 01/25/2025 3:00 PM EDT Office Visit Cardiology [address] [place] [address] Johanne Gee MD [address] [place] [address] Heart failure with preserved ejection fraction, unspecified HF chronicity (HCC) [I50.30] documented as of this encounter Visit Diagnoses Not on filedocumented in this encounter Additional Health Concerns Infection Onset Date Last Indicated Resolved Time COVID-19 Rule-Out 08/07/2021 08/07/2021 08/07/2021 10:34 PM EDT COVID-19 Rule-Out 08/10/2021 08/10/2021 08/10/2021 2:08 PM EDT COVID-19 Rule-Out 11/12/2021 11/12/2021 11/13/2021 3:44 AM EDT documented as of this encounter Care Teams Analytical Data Miner Relationship Specialty Start Date End Date Noah Swann MD PCP - General Family Medicine 06/16/20 Reed Leon MD [address] [place], [place] [phone] Primary Staff Physician Cardiology 11/08/20 documented as of this encounter
--- OUTSIDE RECORDS SUMMARY | 2024-10-19 09:40 | XMS_ITS | Encounter Summary ---
Author Organization [facility] Address [address] [place] [address] Care Team Providers Care Director Heart Name Role Phone Noah Swann MD Primary Care Provider [phone] Reed Leon MD Unavailable [phone] Source Comments In the event this information is protected by the Federal Confidentiality of Alcohol and Drug AbusePatient Records regulations: The Federal rules restrict any use of the information to criminally investigate or prosecute any alcohol or drug abuse patient.[facility] Encounter Details Date Type Department Care Team (Late st Contact Info) Description 09/19/2021 Get Medical Advice Cardiology [address] [place] [address] Johanne Gee MD [address] [place] [address] Hospital Social History Tobacco Use Types Packs/Day Years Used Date Smoking Tobacco: Former Cigarettes 0.5 14.3 0 07/14/1969 - 11/1983 Smokeless Tobacco: Never Alcohol Use Standard Drinks/Week Comments Yes 0 (1 standard drink = 0.6 oz pur e alcohol) occasionally PHQ-2 Answer Date Recorded PHQ-2 score 0 09/07/2021 Area Deprivation Index Answer Date Jamey rded National Score (1-100), lower number is lower ri Not on file 06/08/2020 State Score (1-10), lower number is lower risk N ot on file 06/08/2020 Data from: https://www.neighborhoodatlas.medicine.[facility]/. Last address used for calculation Not on file 06/08/2020 Comments No Sex and Gender Information Value Date Recorded Sex Assigned at Female 06/02/2020 12:02 PM EST Legal Sex Female 2:39 PM EST Gender Identity Female 06/02/2020 12:02 PM EST Sexual Orientation Straight 06/02/2020 12 :02 PM EST COVID-19 Exposure Response Date Recorded In the last 10 days, have yo u been in contact with someone who was confirmed or suspected to have Coronavirus/COVID-19? No / Unsure 09/19/2021 8:51 AM EDT documented as of this encounter Functional Status * Are you deaf or do you have serious difficulty hearing? Answer Date of Assessment Author No 08/12/2021 3:16 PM EDT Ramon Whitaker RN * Are you blind or do you have serious difficulty seeing, even when wearing glasses? Answer Date of Assessment Author No 08/12/2021 3:16 PM EDT Ramon Whitaker RN * Do you have serious difficulty walking or climbing stairs? Answer Date of Assessment Author No 08/12/2021 3:16 PM EDT Ramon Whitaker RN * Do you have difficulty dressing or bathing? Answer Date of Assessment Author No 08/12/2021 3:16 PM EDT Ramon Whitaker RN * Because of a physical, mental, or emotional condition, do you have difficulty doing errands alone such as visiting a doctor's office or shopping? Answer Date of Assessment Author No 08/12/2021 3:16 PM EDT Ramon Whitaker RN documented as of this encounter Mental Status * Because of a physical, mental, or emotional condition, do you have serious difficulty concentrating, remembering, or making decisions? Answer Entry Date Author No 08/12/2021 3:16 PM EDT Ramon Whitaker RN documented in this encounter Plan of Treatment Upcoming Encounters Date Type Department Care Team (Late st Contact Info) Description 01/25/2025 10:00 AM EDT Office Visit Cardiology [address] [place] [address] Heart failure with preserved ejection fraction, unspecified HF chronicity (HCC) [I50.30] 01/25/2025 11:30 AM EDT Results Only [facility] Draw Station [address] [place] [address] Heart failure with preserved ejection fraction, unspecified HF chronicity (HCC) [I50.30] 01/25/2025 12:30 PM EDT Office Visit Cardiology [address] [address] Heart failure with preserved ejection fraction, unspecified HF chronicity (HCC) [I50.30] 01/25/2025 3:00 PM EDT Office Visit Cardiology [address] [place] [address] Johanne Gee MD [address] [place] [address] Heart failure with preserved ejection fraction, unspecified HF chronicity (HCC) [I50.30] documented as of this encounter Visit Diagnoses Not on filedocumented in this encounter Additional Health Concerns Infection Onset Date Last Indicated Resolved Time COVID-19 Rule-Out 11/12/2021 11/12/2021 11/13/2021 3:44 AM EDT documented as of this encounter Care Teams Director Heart Relationship Specialty Start Date End Date Noah Swann MD PCP - General Family Medicine 06/16/20 Reed Leon MD [address] [place], [place] [phone] Primary Staff Physician Cardiology 11/08/20 documented as of this encounter
--- OUTSIDE RECORDS SUMMARY | 2024-10-19 09:40 | XMS_ITS | Encounter Summary ---
Author Organization [facility] Address [address] [place] [address] Care Team Providers Care Physical Therapy Teacher Name Role Phone Noah Swann MD Primary Care Provider [phone] Reed Leon MD Unavailable [phone] Source Comments In the event this information is protected by the Federal Confidentiality of Alcohol and Drug AbusePatient Records regulations: The Federal rules restrict any use of the information to criminally investigate or prosecute any alcohol or drug abuse patient.[facility] Encounter Details Date Type Department Care Team (Late st Contact Info) Description 08/25/2021 Patient Msg General Surgery [address] [place] [address] Provider, [facility] Nutrition summary Social History Tobacco Use Types Packs/Day Years [...] N ot on file 06/08/2020 Data from: https://www.neighborhoodatlas.[facility]/. Last address used for calculation Not on [...] was confirmed or suspected to have Coronavirus/COVID-19? Unable to assess 08/13/2021 11:31 AM EDT documented as of this encounter Functional Status * Are you deaf or do you have serious difficulty hearing? Answer Date of Assessment Author No 08/12/2021 3:16 PM EDT Ramon Whitaker RN * Are you blind or do you have serious difficulty seeing, even when wearing glasses? Answer Date of Assessment Author No 08/12/2021 3:16 PM EDT Ramon Whtiaker RN * Do you have serious difficulty [...] 01/25/2025 10:00 AM EDT Office Visit Cardiology [address] [place] [address] Heart failure with preserved ejection fraction, unspecified HF chronicity (HCC) [I50.30] 01/25/2025 11:30 AM EDT Results Only [facility] Draw [address] [place] [address] Heart failure with preserved ejection fraction, unspecified HF chronicity (HCC) [I50.30] 01/25/2025 12:30 PM EDT Office Visit Cardiology [address] [address] Heart failure with preserved ejection fraction, unspecified HF chronicity (HCC) [I50.30] 01/25/2025 3:00 PM EDT Office Visit Cardiology [address] [place] [address] Johanne Gee MD [address] [place], [place] [phone] Heart failure with preserved ejection fraction, unspecified HF chronicity (HCC) [I50.30] documented as of this encounter Visit Diagnoses Not on filedocumented in this encounter Additional Health Concerns Infection Onset Date Last Indicated Resolved Time COVID-19 Rule-Out 11/12/2021 11/12/2021 11/13/2021 3:44 AM EDT documented as of this encounter Care Teams Physical Therapy Teacher Relationship Specialty Start Date End Date Noah Swann MD PCP - General Family Medicine 06/16/20 Reed Leon MD [address] [place] [address] Primary Staff Physician Cardiology 11/08/20 documented as of this encounter
--- OUTSIDE RECORDS SUMMARY | 2024-10-19 09:40 | XMS_ITS | Encounter Summary ---
Author Organization [facility] Address [address] [place] [address] Care Team Providers Care Telephone Repairer Name Role Phone Noah Swann MD Primary Care Provider [phone] Reed Leon MD Unavailable Source Comments In the event this information is protected by the Federal Confidentiality of Alcohol and Drug AbusePatient Records regulations: The Federal rules restrict any use of the information to criminally investigate or prosecute any alcohol or drug abuse patient.[facility] Encounter Details Date Type Department Care Team (Late st Contact Info) Description 11/09/2021 Get Medical Advice Cardiology [address] [place] [address] Johanne Gee MD [address] [place] [address] Surgery Social History Tobacco Use Types Packs/Day Years Used Date Smoking Tobacco: Former Cigarettes 0.5 14.3 0 07/14/1969 - 11/1983 Smokeless Tobacco: Never Alcohol Use Standard Drinks/Week Comments Yes 0 (1 standard drink = 0.6 oz pur e alcohol) occasionally PHQ-2 Answer Date Recorded PHQ-2 score 0 10/19/2021 Area Deprivation Index Answer Date Jamey rded National Score (1-100), lower number is lower ri Not on file 06/08/2020 State Score (1-10), lower number is lower risk N ot on file 06/08/2020 Data from: https://www.neighborhoodatlas.medicine.[facility]/. Last address used for calculation Not on [...] suspected to have Coronavirus/COVID-19? No / Unsure 11/10/2021 12:40 PM EDT documented as of this encounter Functional [...] 10:00 AM EDT Office Visit Cardiology [address] [place] [address] Heart failure with preserved ejection fraction, unspecified HF chronicity (HCC) [I50.30] 01/25/2025 11:30 AM EDT Results Only [facility] Draw [address] [place] [address] Heart failure with preserved ejection fraction, unspecified HF chronicity (HCC) [I50.30] 01/25/2025 12:30 PM EDT Office Visit Cardiology [address] [address] Heart failure with preserved ejection fraction, unspecified HF chronicity (HCC) [I50.30] 01/25/2025 3:00 PM EDT Office Visit Cardiology [address] [place] [address] Johanne Gee MD [address] [place] [address] Heart failure with preserved ejection fraction, unspecified HF chronicity (HCC) [I50.30] documented as of this encounter Visit Diagnoses Not on filedocumented in this encounter Additional Health Concerns Infection Onset Date Last Indicated Resolved Time COVID-19 Rule-Out 11/12/2021 11/12/2021 11/13/2021 3:44 AM EDT documented as of this encounter Care Teams Telephone Repairer Relationship Specialty Start Date End Date Noah Swann MD PCP - General Family Medicine 06/16/20 Reed Leon MD [address] [place], [place] [phone] Primary Staff Physician Cardiology 11/08/20 documented as of this encounter
--- OUTSIDE RECORDS SUMMARY | 2024-10-19 09:40 | XMS_ITS | Encounter Summary ---
Author Organization [facility] Address [address] [place] [address] Care Team Providers Care Cement Mason Apprentice Name Role Phone Noah Swann MD Primary Care Provider [phone] Reed Leon MD Unavailable [phone] Source Comments In the event this information is protected by the Federal Confidentiality of Alcohol and Drug AbusePatient Records regulations: The Federal rules restrict any use of the information to criminally investigate or prosecute any alcohol or drug abuse patient.[facility] Encounter Details Date Type Department Care Team (Late st Contact Info) Description 08/23/2020 Patient Msg Cardiology [address] [phone] Provider, [facility] Stress Test Social History Tobacco Use Types Packs/Day Years [...] N ot on file 06/08/2020 Data from: https://www.neighborhoodatlas.[facility]/. Last address used for calculation Not on [...] have Coronavirus / COVID-19? No / Unsure 08/12/2020 7:04 AM EDT documented as of this encounter Plan of Treatment Upcoming Encounters Date Type Department Care Team (Late st Contact Info) Description 01/25/2025 10:00 AM EDT Office Visit Cardiology [address] [phone] Heart failure with preserved ejection fraction, unspecified HF chronicity (HCC) [I50.30] 01/25/2025 11:30 AM EDT Results Only [facility] Draw Station [address] [place] [address] Heart failure with preserved ejection fraction, unspecified HF chronicity (HCC) [I50.30] 01/25/2025 12:30 PM EDT Office Visit Cardiology [address] [address] Heart failure with preserved ejection fraction, unspecified HF chronicity (HCC) [I50.30] 01/25/2025 3:00 PM EDT Office Visit Cardiology [address] [phone] Johanne Gee MD [address] [place], [place] [phone] Heart failure with preserved ejection fraction, unspecified [...] documented as of this encounter Care Teams Cement Mason Apprentice Relationship Specialty Start Date End Date Noah Swann MD PCP - General Family Medicine 06/16/20 Reed Leon MD [address] [place] [address] Primary Staff Physician Cardiology 11/08/20 documented as of this encounter
--- OUTSIDE RECORDS SUMMARY | 2024-10-19 09:40 | XMS_ITS | Encounter Summary ---
Author Organization [facility] Address [facility] [place] [address] Care Team Providers Care Financial Investment Manager Name Role Phone Noah Swann MD Primary Care Provider [phone] Reed Leon MD Unavailable [phone] Source Comments In the event this information is protected by the Federal Confidentiality of Alcohol and Drug AbusePatient Records regulations: The Federal rules restrict any use of the information to criminally investigate or prosecute any alcohol or drug abuse patient.[facility] Encounter Details Date Type Department Care Team (Late st Contact Info) Description 06/24/2020 Patient Msg General Surgery [address] [place] [phone] Provider, Ccf colonosocpy Social History Tobacco Use Types Packs/Day Years Used Date Smoking Tobacco: Never Assessed PHQ-2 Answer Date Recorded PHQ-2 score 0 06/24/2020 Area Deprivation Index Answer Date Jamey rded National Score (1-100), lower number is lower ri sk Not on file 06/08/2020 State Score (1-10), lower number is lower risk N ot on file 06/08/2020 Data from: https://www.neighborhoodatlas.medicine.[facility].edu/. Last address used for calculation Not on file 06/08/2020 Comments Unknown Sex and Gender Information Value Date Recorded [...] have Coronavirus / COVID-19? No / Unsure 06/27/2020 10:55 AM EST documented as of this encounter Plan of Treatment Upcoming Encounters Date Type Department Care Team (Late st Contact Info) Description 01/25/2025 10:00 AM EDT Office Visit Cardiology [address] [place] [address] Heart failure with preserved ejection fraction, unspecified HF chronicity (HCC) [I50.30] 01/25/2025 11:30 AM EDT Results Only [facility] Draw Station [address] [place] [address] Heart failure with preserved ejection fraction, unspecified HF chronicity (HCC) [I50.30] 01/25/2025 12:30 PM EDT Office Visit Cardiology [address] [address] Heart failure with preserved ejection fraction, unspecified HF chronicity (HCC) [I50.30] 01/25/2025 3:00 PM EDT Office Visit Cardiology [address] [place] [address] Johanne Gee MD [address] [place] [address] Heart failure with preserved ejection fraction, unspecified [...] documented as of this encounter Care Teams Financial Investment Manager Relationship Specialty Start Date End Date Noah Swann MD PCP - General Family Medicine 06/16/20 Reed Leon MD [address] [phone] Primary Staff Physician Cardiology 11/08/20 documented as of this encounter
--- OUTSIDE RECORDS SUMMARY | 2024-10-19 09:40 | XMS_ITS | Encounter Summary ---
Author Organization [facility] Address [address] [place] [address] Care Team Providers Care Business Taxes Specialist Name Role Phone Noah Swann MD Primary Care Provider [phone] Reed Leon MD Unavailable [phone] Source Comments In the event this information is protected by the Federal Confidentiality of Alcohol and Drug AbusePatient Records regulations: The Federal rules restrict any use of the information to criminally investigate or prosecute any alcohol or drug abuse patient.[facility] Encounter Details Date Type Department Care Team (Late st Contact Info) Description 02/13/2021 Get Medical Advice General Surgery [address] [phone] Radha Cameron, ENAMEL CRACKER.PROJECT ESTIMATOR [address] [place], [place] [phone] RE: Test Result Question Social History Tobacco Use Types Packs/Day [...] N ot on file 06/08/2020 Data from: https://www.neighborhoodatlas.medicine.[facility]/. Last address used for calculation Not on file 06/08/2020 Comments No Sex and Gender Information Value Date Recorded Sex Assigned at Female 06/02/2020 12:02 PM EST Legal Sex Female 2:39 PM EST Gender Identity Female 06/02/2020 12:02 PM EST Sexual Orientation Straight 06/02/2020 12 :02 PM EST documented as of this encounter Functional Status * Are you deaf or do you have serious difficulty hearing? Answer Date of Assessment Author No 10/07/2020 9:19 AM Margaux Baker RN * Are you blind or do you have serious difficulty seeing, even when wearing glasses? Answer Date of Assessment Author No 10/07/2020 9:19 AM Margaux Baker RN * Do you have serious difficulty walking or climbing stairs? Answer Date of Assessment Author No 10/07/2020 9:19 AM Margaux Baker RN * Do you have difficulty dressing or bathing? Answer Date of Assessment Author No 10/07/2020 9:19 AM Margaux Baker RN * Because of a physical, mental, or emotional condition, do you have difficulty doing errands alone such as visiting a doctor's office or shopping? Answer Date of Assessment Author No 10/07/2020 9:19 AM Margaux Baker RN documented as of this encounter Mental Status * Because of a physical, mental, or emotional condition, do you have serious difficulty concentrating, remembering, or making decisions? Answer Entry Date Author No 10/07/2020 9:19 AM Margaux Baker RN documented in this encounter Plan of Treatment Upcoming Encounters Date Type Department Care Team (Late st Contact Info) Description 01/25/2025 10:00 AM EDT Office Visit Cardiology [address] [place] [address] Heart failure with preserved ejection fraction, unspecified HF chronicity (HCC) [I50.30] 01/25/2025 11:30 AM EDT Results Only [facility] Draw [address] [place] [address] Heart failure with preserved ejection fraction, unspecified HF chronicity (HCC) [I50.30] 01/25/2025 12:30 PM EDT Office Visit Cardiology [address] [address] Heart failure with preserved ejection fraction, unspecified HF chronicity (HCC) [I50.30] 01/25/2025 3:00 PM EDT Office Visit Cardiology [address] [place] [address] Johanne Gee MD [address] [place], [place] [phone] Heart failure with preserved ejection fraction, unspecified [...] documented as of this encounter Care Teams Business Taxes Specialist Relationship Specialty Start Date End Date Noah Swann MD PCP - General Family Medicine 06/16/20 Reed Leon MD [address] [place] [address] Primary Staff Physician Cardiology 11/08/20 documented as of this encounter
--- OUTSIDE RECORDS SUMMARY | 2024-10-19 09:40 | XMS_ITS | Encounter Summary ---
Author Organization [facility] Address [address] [place] [address] Care Team Providers Care Indexer Name Role Phone Noah Swann MD Primary Care Provider [phone] Reed Leon MD Unavailable [phone] Source Comments In the event this information is protected by the Federal Confidentiality of Alcohol and Drug AbusePatient Records regulations: The Federal rules restrict any use of the information to criminally investigate or prosecute any alcohol or drug abuse patient.[facility] Encounter Details Date Type Department Care Team (Late st Contact Info) Description 07/15/2020 Patient Msg General Surgery [address] [place] [address] Provider, Ccf Nutrition summary Social History Tobacco Use Types Packs/Day Years Used Date Smoking Tobacco: Former Cigarettes 0.5 7 0 07/14/1969 - 07/14/1976 Smokeless Tobacco: Never Alcohol Use Standard Drinks/Week Comments Not Currently 0 (1 standard drink = 0.6 oz pur e alcohol) PHQ-2 Answer Date Recorded PHQ-2 score 0 06/24/2020 Area Deprivation Index Answer Date Jamey rded National Score (1-100), lower number is lower ri sk Not on file 06/08/2020 State Score (1-10), lower number is lower risk N ot on file 06/08/2020 Data from: https://www.neighborhoodatlas.[facility]/. Last address used for calculation [...] have Coronavirus / COVID-19? No / Unsure 07/14/2020 1:04 PM EST documented as of this encounter Plan of Treatment Upcoming Encounters Date Type Department Care Team (Late st Contact Info) Description 01/25/2025 10:00 AM EDT Office Visit Cardiology [address] [id number] Heart failure with preserved ejection fraction, unspecified HF chronicity (HCC) [I50.30] 01/25/2025 11:30 AM EDT Results Only [facility] Draw Station [address] [place] [address] Heart failure with preserved ejection fraction, unspecified HF chronicity (HCC) [I50.30] 01/25/2025 12:30 PM EDT Office Visit Cardiology [address] [address] Heart failure with preserved ejection fraction, unspecified HF chronicity (HCC) [I50.30] 01/25/2025 3:00 PM EDT Office Visit Cardiology [address] [id number] Johanne Gee MD [address] [place], [place] [id number] Heart failure with preserved ejection fraction, unspecified [...] documented as of this encounter Care Teams Indexer Relationship Specialty Start Date End Date Noah Swann MD PCP - General Family Medicine 06/16/20 Reed Leon MD [address] [place] [address] Primary Staff Physician Cardiology 11/08/20 documented as of this encounter
--- OUTSIDE RECORDS SUMMARY | 2024-10-19 09:40 | XMS_ITS | Encounter Summary ---
Author Organization [facility] Address [address] [place] [address] Care Team Providers Care Mold Preparer Name Role Phone Noah Swann MD Primary Care Provider [phone] Reed Leon MD Unavailable [phone] Source Comments In the event this information is protected by the Federal Confidentiality of Alcohol and Drug AbusePatient Records regulations: The Federal rules restrict any use of the information to criminally investigate or prosecute any alcohol or drug abuse patient.[facility] Encounter Details Date Type Department Care Team (Late st Contact Info) Description 01/09/2021 Get Medical Advice Cardiology [address] [place] [address] Reed Leon MD [address] [place] [address] RE: Upcoming Appointment Question Social History Tobacco Use Types Packs/Day [...] N ot on file 06/08/2020 Data from: https://www.neighborhoodatlas.med[facility]/. Last address used for calculation Not on [...] Entry Date Author No 10/07/2020 9:19 AM EDT Margaux Lan RN documented in this encounter Plan of Treatment Upcoming Encounters Date Type Department Care Team (Late st Contact Info) Description 01/25/2025 10:00 AM EDT Office Visit Cardiology [address] [place] [address] Heart failure with preserved ejection fraction, unspecified HF chronicity (HCC) [I50.30] 01/25/2025 11:30 AM EDT Results Only [facility] Draw Station [address] [place] [address] Heart failure with preserved ejection fraction, unspecified HF chronicity (HCC) [I50.30] 01/25/2025 12:30 PM EDT Office Visit Cardiology [address] [address] Heart failure with preserved ejection fraction, unspecified HF chronicity (HCC) [I50.30] 01/25/2025 3:00 PM EDT Office Visit Cardiology [address] [place] [address] Johanne Gee MD [address] [place] [address] Heart failure with preserved ejection [...] documented as of this encounter Care Teams Mold Preparer Relationship Specialty Start Date End Date Noah Swann MD PCP - General Family Medicine 06/16/20 Reed Leon MD [address] [place], [place] [id number] Primary Staff Physician Cardiology 11/08/20 documented as of this encounter
--- OUTSIDE RECORDS SUMMARY | 2024-10-19 09:40 | XMS_ITS | Clinical Summary ---
Author Organization [facility] Address [address] [place] [address] Care Team Providers Care Saw Tailer Name Role Phone Unavailable Primary Care Provider Unavailabl e Social History Tobacco Use Types Packs/Day Years Used Date Smoking Tobacco: Never Assessed [place] Safety & Environment Answer Date Rec orded Fear of Current or Ex-Partner Not on file Emotionally Abused Not on file 07/11/2023 Physically Abused Not on file 07/11/2023 Sexually Abused Not on file 07/11/2023 Physically or Sexually Abused Not on file Sex and Gender Information Value Date Recorded Sex Assigned at Not on file Gender Identity Not on file Sexual Orientation Not on file Plan of Treatment Health Maintenance Due Date Last Done Comments CT Colonography 1963 Colonoscopy 1965 Colorectal Cancer Screening 1965 FIT-DNA 1963 FIT 1963 FOBT 1965 Sigmoidoscopy 1963 Depression Screening 1975 Pap Smear 1984 Adult Tetanus 1985 Cervical Cancer Screening 1993 HPV/Cotest 1993 Mammogram 2003 Zoster Vaccines (1 of 2) 2013 Influenza Vaccine (Season Ended) 2025 HIB Vaccines Aged Out No longer eligi ble based on patient's age to complete this topic HPV Vaccines Aged Out No longer eligi ble based on patient's age to complete this topic IPV Vaccines Aged Out No longer eligi ble based on patient's age to complete this topic Meningococcal B Vaccine Aged Out No l onger eligible based on patient's age to complete this topic Meningococcal Vaccine Aged Out No deng luis eligible based on patient's age to complete this topic Pneumococcal Vaccine: Pediat rics (0 to 5 Years) and At-Risk Patients (6 to 64 Years) Aged Out No longer eligible b ased on patient's age to complete this topic Rotavirus Vaccines Aged Out No longer eligible based on patient's age to complete this topic
--- OUTSIDE RECORDS SUMMARY | 2024-10-19 09:40 | XMS_ITS | Clinical Summary ---
Author Organization [facility] Address [id number] [place] [address] Care Team Providers Care Reactor Kettle Operator Name Role Phone Unavailable Primary Care Provider Unavailabl e Social History Tobacco Use Types Packs/Day Years Used Date Smoking Tobacco: Never Assessed Childcare Answer Date Recorded Childcare Unknown 10/29/2018 Employment Answer Date Recorded Employment Unknown 10/29/2018 Comments Unknown Sex and Gender Information Value Date Recorded Sex Assigned at Not on file Legal Sex Female 11:32 AM EDT Gender Identity Not on file Sexual Orientation Not on file Plan of Treatment Not on file Medical Devices Not on file
--- OUTSIDE RECORDS SUMMARY | 2024-10-19 09:40 | XMS_ITS | Encounter Summary ---
Author Organization [facility] Address [address] [place] [address] Care Team Providers Care Electric Frying Pan Repairer Name Role Phone Noah Swann MD Primary Care Provider [phone] Reed Leon MD Unavailable [phone] Source Comments In the event this information is protected by the Federal Confidentiality of Alcohol and Drug AbusePatient Records regulations: The Federal rules restrict any use of the information to criminally investigate or prosecute any alcohol or drug abuse patient.[facility] Encounter Details Date Type Department Care Team (Late st Contact Info) Description 09/19/2021 Patient Msg Cardiology [address] [place] [address] Reed Leon MD [address] [place] [address] Upcoming virtual visit Social History Tobacco Use Types Packs/Day Years [...] N ot on file 06/08/2020 Data from: https://www.neighborhoodatlas.medicine.[facility].edu/. Last address used for calculation Not [...] 10:00 AM EDT Office Visit Cardiology [address] [place] [address] Heart failure with preserved ejection fraction, unspecified HF chronicity (HCC) [I50.30] 01/25/2025 11:30 AM EDT Results Only [facility] Draw Station [address] [place] [address] Heart failure with preserved ejection fraction, unspecified HF chronicity (HCC) [I50.30] 01/25/2025 12:30 PM EDT Office Visit Cardiology [address] [address] Heart failure with preserved ejection fraction, unspecified HF chronicity (HCC) [I50.30] 01/25/2025 3:00 PM EDT Office Visit Cardiology [address] [place] [address] Johanne Gee MD [address] [place] [address] Heart failure with preserved ejection fraction, unspecified HF chronicity (HCC) [I50.30] documented as of this encounter Visit Diagnoses Not on filedocumented in this encounter Additional Health Concerns Infection Onset Date Last Indicated Resolved Time COVID-19 Rule-Out 11/12/2021 11/12/2021 11/13/2021 3:44 AM EDT documented as of this encounter Care Teams Electric Frying Pan Repairer Relationship Specialty Start Date End Date Noah Swann MD PCP - General Family Medicine 06/16/20 Reed Leon MD [address] [place] [address] Primary Staff Physician Cardiology 11/08/20 documented as of this encounter
--- OUTSIDE RECORDS SUMMARY | 2024-10-19 09:40 | XMS_ITS | Referral Summary ---
Author Organization [facility] Address [address] [place] [address] Care Team Providers Care Global Coordinator Name Role Phone Unavailable Primary Care Provider [...]
--- OUTSIDE RECORDS SUMMARY | 2024-10-19 09:40 | XMS_ITS | Patient Health Record ---
Author Organization [facility] [place] Address [address] [place] [address] Care Team Providers Care Master Naval Parachutist Name Role Phone Abad Swann Primary Care Provider [phone] Allergies No Known Allergies Results Component Value Reference Range Notes MM tomosynthesis screening B I Reviewed date:02/24/2024 08:32:05 PM Interpretation: Performing Lab: Notes/Report: Source Facility: [place] [address] Mammography Report Signed Patient: MUNIRA SERRA MR#: [id number] : 1965 Acct:[id number] Age/Sex: 58 / F ADM Date: 02/24/24 Loc: MAMMO Attending Dr: Noah Swann M.D. Ordering Physician: Noah Swann M.D. Results: Date of Service: 02/24/24 Follow Up: Procedure(s): MM tomosynthesis screening BI Accession Number(s): [id number] cc: Noah Swann M.D. Patient Name: MUNIRA SERRA MR#: [id number] : 1965 Exam Date: 02/24/2024 Ordering Doctor: DR Noah Swann . RADIOLOGY REPORT PROCEDURE: MM TOMOSYNTHESIS SCREENING BI COMPARISON: MG MAMM SCREEN FAROOQ W CAD, 10/27/2018. MG MAMM SCREEN FAROOQ W CAD, 11/24/2019. INDICATIONS: Screening for malignant neoplasm Calculator Name NCI Breast Cancer Risk Assessment Tool 5 Year Breast Cancer Risk 1.10% Lifetime Breast Cancer Risk 5.80% Personal Breast Cancer No Personal Ovarian Cancer No Treatments None Family Cancers Grandmother-maternal with breast cancer at age 87. LOCATION: [facility] BREAST COMPOSITION: The breasts are extremely dense, which lowers the sensitivity of mammography. FINDINGS: DIAGNOSTIC CATEGORY 2--BENIGN FINDING. NO CHANGE FROM COMPARISON. Scattered benign-appearing nodules are present. Scattered benign-appearing calcifications are present. Scattered benign-appearing lymph nodes are present. RIGHT BREAST: No significant suspicious finding. LEFT BREAST: No significant suspicious finding. RECOMMENDATIONS: ROUTINE MAMMOGRAM AND CLINICAL EVALUATION IN 12 MONTHS. PLEASE NOTE: A NORMAL MAMMOGRAM DOES NOT EXCLUDE THE POSSIBILITY OF BREAST CANCER. A CLINICALLY SUSPICIOUS PALPABLE LUMP SHOULD BE BIOPSIED. Dictated by: Donny Gasca MD on 02/24/2024 at 15:41 Approved by: Donny Gasca MD on 02/24/2024 at 15:43 Dictated By: Donny Gasca M.D. Signed By: 02/24/24 1544 DD/ 1543 TD/TT: Service Crew Leader: [place] [address] Mammography Report Signed Patient: MUNIRA SERRA MR#: [id number] : 1965 Acct:[id number] Age/Sex: 58 / F ADM Date: 02/24/24 Loc: MAMMO Attending Dr: Noah Swann M.D. Ordering Physician: Noah Swann M.D. Results: Date of Service: 12/10 Follow Up: Procedure(s): MM aurora osynthesis screening BI Accession Number(s): [id number] cc: Noah Swann M.D. Patient Name: MUNIRA SERRA MR#: [id number] : 1965 Exam Date: 02/24/2024 Ordering Doctor: DR Noah Swann . RADIOLOGY REPORT PROCEDURE: MM TOMOSY NTHESIS SCREENING BI COMPARISON: MG MAMM SCREEN FAROOQ W CAD, 10/27/2018. MG MAMM SCREEN FAROOQ W CAD, 11/24/2019. INDICATIONS: Screeni ng for malignant neoplasm Calculator Name NCI Breast Cancer Risk Assessment Tool 5 Year Breast Cancer Risk 1.10% Lifetime Breast Canc er Risk 5.80% Personal Breast Cancer No Personal Ovarian Cancer No Treatments None Family Cancers Grandmother-maternal with breast cancer at age 87. LOCATION: [facility] BREAST COMPOSITION: The breasts are extremely dense, which lowers the sensitivity of mammography. FINDINGS: DIAGNOSTIC CATEGORY 2--BENIGN FINDING. NO CHANGE FROM COMPARISON. Scattered benign-ephraim earing nodules are present. Scattered benign-appearing calcifications are p resent. Scattered benign-appearing lymph nodes are present. RIGHT BREAST: No sig nificant suspicious finding. LEFT BREAST: No sign ificant suspicious finding. RECOMMENDATIONS: ROUTINE MAMMOGRAM AN D CLINICAL EVALUATION IN 12 MONTHS. PLEASE NOTE: A LEONARDO L MAMMOGRAM DOES NOT EXCLUDE THE POSSIBILITY OF BREAST CANCER. A CLINICALLY SUSPICIOUS PALPABLE LUMP SHOULD BE BIOPSIED. Dictated by: Donny vasquez MD on 02/24/2024 at 15:41 Approved by: Donny vasquez MD on 02/24/2024 at 15:43 Dictated By: Donny Gasca M.D. Signed By: 02/24/24 1544 DD/ 1543 TD/TT: Service Crew Leader: Reason For Referral No Information Medications Medication SIG (Take, Route, Frequency, Duration) Notes Start Date End Date Status Carvedilol 25 MG TAKE 1 TABLET BY JEET TH TWICE DAILY for 90 Active Vitamin B + C Complex - as directed Orally Unknown Atorvastatin Calcium 80 MG TAKE 1 TABLET BY MOUTH ONCE DAILY for 90 Active Azelastine HCl 137 MCG/SPRAY 1 spray each nostril Nasally daily 04/30/2024 Unknown Vitamin D (Cholecalciferol) 50 MCG (1999 UT) 2 capsule Orally Once a day Unknown Colesevelam HCl 625 MG TAKE 4 TABLETS BY MOUTH ONCE DAILY for 90 Unknown Entresto 24-26 MG 1 tablet Orally Twic e a day Unknown Isosorbide Mononitrate ER 60 MG TAKE 1 TABLET BY MOUTH ONCE DAILY for 30 days Unknown Jardiance 10 MG TAKE 1 TABLET BY JEET TH ONCE DAILY for 90 Unknown Ezetimibe 10 MG TAKE 1 TABLET BY JEET TH ONCE DAILY for 90 Active Meclizine HCl 25 MG 1 tablet as needed Orally Q 6 hours 07/29/2024 Unknown Meloxicam 15 MG 1 tablet Orally Once a day for 30 days 07/29/2024 Unknown Pantoprazole Sodium 40 MG TAKE 1 TABLET BY MOUTH EVERY DAY for 90 days Unknown Ipratropium [place] 0.06 % USE 2 SPRAYS IN EACH NOSTRIL TWICE A DAY for 90 days Active Immunizations Vaccine Route Administration Date Status Comme nts Comirnatalex Pfizer Syringe Pre -Filled 30 mcg/0.3 mL Unknown 03/05/2023 Administered Comirnaty Pfizer Syringe Pre -Filled 30 mcg/0.3 mL Unknown 02/27/2024 Administered Flu, FluLaval (87355) 6 mos and older, single-dose syringe Unknown 02/27/2024 Administered Flu, Fluzone (70397) 6 mos+, single-dose syringe/vial ([id number]) Unknown 03/05/2023 Administered Social History Tobacco Use: Social History Observation Description Date Details (start date - stop date) Former Smoker 05/20/1980 - 05/20/1982 Tobacco Use/Smoking Question Answer Notes Patient is a former smoker When did you start smoking? 05/20/1980 When did you stop smoking? 05/20/1982 Alcohol Screen (Audit-C) Question Answer Notes Did you have a drink containing alcohol in the p ast year? 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) Active confirmed Problem Hypertriglyceridemia (414108287) Hypertriglyceridemia (E78.1) Active confirmed Problem Well adult (921227987) Well adult (Z00.00) Active confirmed Problem Shoulder joint pain (800033059) Shoulder pain, left (M25.512) Active confirmed Problem Hearing loss (37085108) Hearing deficit (H91.90) Active confirmed Problem Ventricular prematur e depolarization (617331350) Unifocal PVCs (I49.3) Active confirmed Problem Raynaud's disease (797137755) Raynaud's disease (I73.00) Active confirmed Problem Cervical arthritis (029774913) Cervical arthritis (M47.812) Active confirmed Problem Diabetes mellitus (49939601) Diabetes mellitus (E11.9) Active confirmed Vital Signs Blood pressure diastolic 64 mm Hg 07/29/2024 Height 65 in 07/29/2024 Blood pressure systolic 108 mm Hg 07/29/2024 Weight 176.2 lbs 07/29/2024 BMI 29.32 kg/m2 07/29/2024 Encounters Encounter Location Date Provider Diagnosis [facility] [address] [place] [address] 01/21/[address] [facility] [address] [place] [address] 02/24/2024 Abad alex [facility] [address] [place] [place] [address] 03/11/2024 Abad alex [facility] [address] [place] [address] 08/26/[address] [facility] [address] [place] [address] 10/02/[address] [facility] [address] [place] [address] 01/30/2024 Abad Shree Well adult Z00.[address] [address] 04/30/2024 Abad Swann Hypertension I10 ; A cute combined systolic (congestive) and diastolic (congestive) heart failure I50.41 ; Diabetes mellitus E11.9 and Cervical arthritis M47.[address] [address] 07/29/2024 Abad Chunalex Acute combined systo lic (congestive) and diastolic (congestive) heart failure I50.41 ; Hypertension I10 ; Diabetes mellitus E11.9 ; Shoulder pain, left M25.512 and Well adult Z00.00 Assessments Encounter Date Diagnosis (ICD Code) Assessment Notes Treatment Notes Treatment Clinical Notes Section Notes 01/30/2024 Well adult (ICD-10 - Z00.00) 04/30/2024 Hypertension (ICD-10 - I10) 04/30/2024 Acute combined systolic (congestive) and diastolic (congestive) heart failure (ICD-10 - I50.41) 07/29/2024 Acute combined systolic (congestive) and diastolic (congestive) heart failure (ICD-10 - I50.41) 07/29/2024 Hypertension (ICD-10 - I10) 07/29/2024 Diabetes mellitus (ICD-10 - E11.9) 04/30/2024 Diabetes mellitus (ICD-10 - E11.9) 04/30/2024 Cervical arthritis (ICD-10 - M47.812) 07/29/2024 Shoulder pain, left (ICD-10 - M25.512) 07/29/2024 Well adult (ICD-10 - Z00.00) Plan Of Treatment Pending Test Test Name Order Date CMP (COMPLETE METABOLIC PANEL) 3 HEMOGLOBIN A1C (GLYCO) 11/09/2022 HEMOGLOBIN A1C (GLYCO) 07/29/2024 IRON, TOTAL 07/29/2024 IRON, TOTAL 11/09/2022 LIPID PANEL (CHOL/TRIG/HDL/LDL) 11/10/19 LIPID PANEL (CHOL/TRIG/HDL/LDL) 07/30/19 25 CBC WITH DIFF 11/09/2022 VITAMIN D, 25 LEVEL (TOTAL) 11/09/2022 VITAMIN D, 25 LEVEL (TOTAL) 07/29/2024 MAMM Mammograms CAD 11/09/2022 VIT B12 AND FOLATE 11/09/2022 THYROID PANEL (T4/TSH/FREE T3) 3 THYROID PANEL (T4/TSH/FREE T3) 5 MM screening mammo BI 01/30/2024 CMP (COMP MET MILLER) w/eGFR CKD-EPI 2024 CBC WITH DIFF 07/29/2024 Next Appt Details Provider Name:Abad Avilez Adielalex, 01:00:00 PM, [address] [place], [address], Insurance Providers Payer Name Payer Address Payer Phone Subscriber Number Group Number Insured Name Patient Relationship to Insured Coverage Start Date Coverage End Date [employer] [address] [place] [phone] [id number] Munira Serra Self - patient is the insured Medical (General) History Medical History History ICD Code Unifocal PVCs I49.3 Acute combined systolic (con gestive) and diastolic (congestive) heart failure I50.41 Coronary artery disease I25.10 Benign neoplasm of right lung Migraine headache G43.909 Hypertriglyceridemia E78.1 Osteoarthritis of knee M17.9 Hypertension I10 Raynaud's disease I73.00 Hearing deficit H91.90 Surgical History Surgery Date(Month/Year) Left Total hip Heart Cath, Dr. Cohn 09/2010 Cholecystectomy Hysterectomy, total Cardiac Stent T&A
--- OUTSIDE RECORDS SUMMARY | 2024-10-19 09:40 | XMS_ITS | Encounter Summary ---
Author Organization [facility] Address [address] [place] [address] Care Team Providers Care Reading Instructor Name Role Phone Noah Swann MD Primary Care Provider [phone] Reed Leon MD Unavailable [phone] Source Comments In the event this information is protected by the Federal Confidentiality of Alcohol and Drug AbusePatient Records regulations: The Federal rules restrict any use of the information to criminally investigate or prosecute any alcohol or drug abuse patient.[facility] Encounter Details Date Type Department Care Team (Late st Contact Info) Description 11/10/2021 Patient Msg General Surgery [address] [place] [address] Provider, Ccf Preparations for surgery Social History Tobacco Use Types Packs/Day Years [...] N ot on file 06/08/2020 Data from: https://www.neighborhoodatlas.[facility]/. Last address used for calculation Not on file 06/08/2020 Comments No Sex and Gender Information Value Date Recorded Sex Assigned at Female 06/02/2020 12:02 PM EST Legal Sex Female 2:39 PM EST Gender Identity Female 06/02/2020 12:02 PM EST Sexual Orientation Straight 06/02/2020 12 :02 PM EST COVID-19 Exposure Response Date Recorded In the last 10 days, have jun guthrie been in contact with someone who was confirmed or suspected to have Coronavirus/COVID-19? No / Unsure 11/13/2021 7:23 AM EDT documented as of this encounter [...] 01/25/2025 10:00 AM EDT Office Visit Cardiology [address] [place] [address] Heart failure with preserved ejection fraction, unspecified HF chronicity (HCC) [I50.30] 01/25/2025 11:30 AM EDT Results Only [facility] Draw Station [address] [place] [address] Heart failure with preserved ejection fraction, unspecified HF chronicity (HCC) [I50.30] 01/25/2025 12:30 PM EDT Office Visit Cardiology [address] [address] Heart failure with preserved ejection fraction, unspecified HF chronicity (HCC) [I50.30] 01/25/2025 3:00 PM EDT Office Visit Cardiology [address] [place] [address] Johanne Gee MD [address] [place] [address] Heart failure with preserved ejection fraction, unspecified HF chronicity (HCC) [I50.30] documented as of this encounter Visit Diagnoses Not on filedocumented in this encounter Additional Health Concerns Infection Onset Date Last Indicated Resolved Time COVID-19 Rule-Out 11/12/2021 11/12/2021 11/13/2021 3:44 AM EDT documented as of this encounter Care Teams Reading Instructor Relationship Specialty Start Date End Date Noah Swann MD PCP - General Family Medicine 06/16/20 Reed Leon MD [address] [place] [address] Primary Staff Physician Cardiology 11/08/20 documented as of this encounter
--- OUTSIDE RECORDS SUMMARY | 2024-10-19 09:40 | XMS_ITS | Encounter Summary ---
Author Organization [facility] Address [address] [place] [address] Care Team Providers Care Medical Office Supervisor Name Role Phone Noah Swann MD Primary Care Provider [phone] Reed Leon MD Unavailable [phone] Source Comments In the event this information is protected by the Federal Confidentiality of Alcohol and Drug AbusePatient Records regulations: The Federal rules restrict any use of the information to criminally investigate or prosecute any alcohol or drug abuse patient.[facility] Encounter Details Date Type Department Care Team (Late st Contact Info) Description 07/25/2020 Get Medical Advice General Surgery [address] [phone] Radha Cameron, FRUIT DRYER.FLIGHT CONTROL TOWER OPERATOR [address] [place], [place] [phone] RE: Test Result Question Social History Tobacco [...] N ot on file 06/08/2020 Data from: https://www.neighborhoodatlas.medicine.[facility]/. Last address used for calculation Not [...] 10:00 AM EDT Office Visit Cardiology [address] [place] [address] Heart failure with preserved ejection fraction, unspecified HF chronicity (HCC) [I50.30] 01/25/2025 11:30 AM EDT Results Only [facility] Draw Station [address] [place] [address] Heart failure with preserved ejection fraction, unspecified HF chronicity (HCC) [I50.30] 01/25/2025 12:30 PM EDT Office Visit Cardiology [address] [address] Heart failure with preserved ejection fraction, unspecified HF chronicity (HCC) [I50.30] 01/25/2025 3:00 PM EDT Office Visit Cardiology [address] [phone] Johanne Gee MD [address] [place], [place] [id number] Heart failure with preserved ejection fraction, unspecified [...] documented as of this encounter Care Teams Medical Office Supervisor Relationship Specialty Start Date End Date Noah Swann MD PCP - General Family Medicine 06/16/20 Reed Leon MD [address] [place] [address] Primary Staff Physician Cardiology 11/08/20 documented as of this encounter
--- OUTSIDE RECORDS SUMMARY | 2024-10-19 09:40 | XMS_ITS | Encounter Summary ---
Author Organization [facility] Address [address] [place] [address] Care Team Providers Care Pug Machine Operator Name Role Phone Noah Swann MD Primary Care Provider [phone] Reed Leon MD Unavailable [phone] Source Comments In the event this information is protected by the Federal Confidentiality of Alcohol and Drug AbusePatient Records regulations: The Federal rules restrict any use of the information to criminally investigate or prosecute any alcohol or drug abuse patient.[facility] Encounter Details Date Type Department Care Team (Late st Contact Info) Description 01/30/2021 Get Medical Advice General Surgery [address] [phone] Radha Cameron, SHIFT ENGINEER.STORY READER [address] [place], [place] [phone] RE: Test Result Question Social History Tobacco [...] N ot on file 06/08/2020 Data from: https://www.neighborhoodatlas.medicine.[facility]/. Last address used for calculation Not [...] Upcoming Encounters Date Type Department Care Team (Ba Contact Info) Description 01/25/2025 10:00 AM EDT Office Visit Cardiology [address] [place] [address] Heart failure with preserved ejection fraction, unspecified HF chronicity (HCC) [I50.30] 01/25/2025 11:30 AM EDT Results Only [facility] Draw Station [address] [place] [address] Heart failure with preserved ejection fraction, unspecified HF chronicity (HCC) [I50.30] 01/25/2025 12:30 PM EDT Office Visit Cardiology [address] [address] Heart failure with preserved ejection fraction, unspecified HF chronicity (HCC) [I50.30] 01/25/2025 3:00 PM EDT Office Visit Cardiology [address] [place] [address] Johanne Gee MD [address] [place] [address] Heart failure with preserved ejection [...] documented as of this encounter Care Teams Pug Machine Operator Relationship Specialty Start Date End Date Noah Swann MD PCP - General Family Medicine 06/16/20 Reed Leon MD [address] [place], [place] [phone] Primary Staff Physician Cardiology 11/08/20 documented as of this encounter
--- OUTSIDE RECORDS SUMMARY | 2024-10-19 09:41 | XMS_ITS | Encounter Summary ---
Author Organization [facility] Address [address] [place] [address] Care Team Providers Care Greens Keeper Name Role Phone Noah Swann MD Primary Care Provider [phone] Reed Leon MD Unavailable [phone] Source Comments In the event this information is protected by the Federal Confidentiality of Alcohol and Drug AbusePatient Records regulations: The Federal rules restrict any use of the information to criminally investigate or prosecute any alcohol or drug abuse patient.[facility] Encounter Details Date Type Department Care Team (Late st Contact Info) Description 11/22/2021 Get Medical Advice General Surgery [address] [place] [address] Provider, [facility]cf Appointment Social History Tobacco Use Types Packs/Day Years Used Date Smoking Tobacco: Former Cigarettes 0.5 14.3 0 07/14/1969 - 11/1983 Smokeless Tobacco: Never Alcohol Use Standard Drinks/Week Comments Yes 2 (1 standard drink = 0.6 oz pur e alcohol) occasionally PHQ-2 Answer Date Recorded PHQ-2 score 0 10/19/2021 Area Deprivation Index Answer Date Jamey rded National Score (1-100), lower number is lower ri sk Not on file 06/08/2020 State Score (1-10), lower number is lower risk N ot on file 06/08/2020 Data from: https://www.neighborhoodatlas.[facility]/. Last address used for calculation Not on file 06/08/2020 Comments No Sex and Gender Information Value Date Recorded Sex Assigned at Female 06/02/2020 12:02 PM EST Legal Sex Female 2:39 PM EST Gender Identity Female 06/02/2020 12:02 PM EST Sexual Orientation Straight 06/02/2020 12 :02 PM EST COVID-19 Exposure Response Date Recorded In the last 10 days, have jun u been in contact with someone who was confirmed or suspected to have Coronavirus/COVID-19? No / Unsure 11/14/2021 9:20 AM EDT documented as of this encounter Functional Status * Are you deaf or do you have serious difficulty hearing? Answer Date of Assessment Author No 11/16/2021 4:25 PM Rosy Nina RN * Are you blind or do you have serious difficulty seeing, even when wearing glasses? Answer Date of Assessment Author No 11/16/2021 4:25 PM Rosy Nina RN * Do you have serious difficulty walking or climbing stairs? Answer Date of Assessment Author No 11/16/2021 4:25 PM Rosy Nina RN * Do you have difficulty dressing or bathing? Answer Date of Assessment Author No 11/16/2021 4:25 PM Rosy Nina RN * Because of a physical, mental, or emotional condition, do you have difficulty doing errands alone such as visiting a doctor's office or shopping? Answer Date of Assessment Author No 11/16/2021 4:25 PM Rosy Nina RN documented as of this encounter Mental Status * Because of a physical, mental, or emotional condition, do you have serious difficulty concentrating, remembering, or making decisions? Answer Entry Date Author No 11/16/2021 4:25 PM Rosy Nina RN documented in this encounter Plan of Treatment Upcoming Encounters Date Type Department Care Team (Late st Contact Info) Description 01/25/2025 10:00 AM EDT Office Visit Cardiology [address] [place] [address] Heart failure with preserved ejection fraction, unspecified HF chronicity (HCC) [I50.30] 01/25/2025 11:30 AM EDT Results Only [facility] Draw [address] [place] [address] Heart failure with preserved ejection fraction, unspecified HF chronicity (HCC) [I50.30] 01/25/2025 12:30 PM EDT Office Visit Cardiology [address] [address] Heart failure with preserved ejection fraction, unspecified HF chronicity (HCC) [I50.30] 01/25/2025 3:00 PM EDT Office Visit Cardiology [address] [place] [address] Johanne Gee MD [address] [place] [address] Heart failure with preserved ejection fraction, unspecified HF chronicity (HCC) [I50.30] documented as of this encounter Visit Diagnoses Not on filedocumented in this encounter Care Teams Greens Keeper Relationship Specialty Start Date End Date Noah Swann MD PCP - General Family Medicine 06/16/20 Reed Leon MD [address] [place] [address] Primary Staff Physician Cardiology 11/08/20 documented as of this encounter
--- OUTSIDE RECORDS SUMMARY | 2024-10-19 09:41 | XMS_ITS | Encounter Summary ---
Author Organization [facility] Address [address] [place] [address] Care Team Providers Care Fairground Operator Name Role Phone Noah Swann MD Primary Care Provider [phone] Reed Leon MD Unavailable [phone] Source Comments In the event this information is protected by the Federal Confidentiality of Alcohol and Drug AbusePatient Records regulations: The Federal rules restrict any use of the information to criminally investigate or prosecute any alcohol or drug abuse patient.[facility] Encounter Details Date Type Department Care Team (Late st Contact Info) Description 12/05/2021 Get Medical Advice Cardiology [address] [place] [address] Johanne Gee MD [address] [place] [address] Isosorbide Social History Tobacco Use Types Packs/Day Years [...] ot on file 06/08/2020 Data from: https://www.neighborhoodatlas.medicine.[facility]/. Last address used for calculation Not [...] 10:00 AM EDT Office Visit Cardiology [address] [place] [address] Heart failure with preserved ejection fraction, unspecified HF chronicity (HCC) [I50.30] 01/25/2025 11:30 AM EDT Results Only [facility] Draw [address] [place] [address] Heart failure with preserved ejection fraction, unspecified HF chronicity (HCC) [I50.30] 01/25/2025 12:30 PM EDT Office Visit Cardiology [address] [address] Heart failure with preserved ejection fraction, unspecified HF chronicity (HCC) [I50.30] 01/25/2025 3:00 PM EDT Office Visit Cardiology [address] [place] [address] Johanne Gee MD [address] [place] [address] Heart failure with preserved ejection fraction, unspecified HF chronicity (HCC) [I50.30] documented as of this encounter Visit Diagnoses Not on filedocumented in this encounter Care Teams Fairground Operator Relationship Specialty Start Date End Date Noah Swann MD PCP - General Family Medicine 06/16/20 Reed Leon MD [address] [place] [address] Primary Staff Physician Cardiology 11/08/20 documented as of this encounter
--- OUTSIDE RECORDS SUMMARY | 2024-10-19 09:41 | XMS_ITS | Encounter Summary ---
Author Organization [facility] Address [address] [place] [address] Care Team Providers Care Control Tower Operator Name Role Phone Noah Swann MD Primary Care Provider [phone] Reed Leon MD Unavailable Source Comments In the event this information is protected by the Federal Confidentiality of Alcohol and Drug AbusePatient Records regulations: The Federal rules restrict any use of the information to criminally investigate or prosecute any alcohol or drug abuse patient.[facility] Encounter Details Date Type Department Care Team (Late st Contact Info) Description 06/06/2021 Get Medical Advice General Surgery [address] [phone] Radha Cameron, HEADLIGHT ASSEMBLER.[facility] [address] [place], [place] [phone] cT Social History Tobacco Use Types Packs/Day Years [...] N ot on file 06/08/2020 Data from: https://www.neighborhoodatlas.medicine.[facility].edu/. Last address used for calculation Not [...] of Assessment Author No 10/07/2020 9:19 AM EDMargaux Reid RN * Are you blind or do [...] 10:00 AM EDT Office Visit Cardiology [address] [place] [address] Heart failure with preserved ejection fraction, unspecified HF chronicity (HCC) [I50.30] 01/25/2025 11:30 AM EDT Results Only [facility] Draw Station [address] [place] [address] Heart failure with preserved ejection fraction, unspecified HF chronicity (HCC) [I50.30] 01/25/2025 12:30 PM EDT Office Visit Cardiology [address] [address] Heart failure with preserved ejection fraction, unspecified HF chronicity (HCC) [I50.30] 01/25/2025 3:00 PM EDT Office Visit Cardiology [address] [place] [address] Johanne Gee MD [address] [place] [address] Heart failure with preserved ejection [...] documented as of this encounter Care Teams Control Tower Operator Relationship Specialty Start Date End Date Noah Swann MD PCP - General Family Medicine 06/16/20 Reed Leon MD [address] [place] [address] Primary Staff Physician Cardiology 11/08/20 documented as of this encounter
--- OUTSIDE RECORDS SUMMARY | 2024-10-19 09:41 | XMS_ITS | Encounter Summary ---
Author Organization [facility] Address [address] [place] [address] Care Team Providers Care Cloth Burler Name Role Phone Noah Swann MD Primary Care Provider [phone] Reed Leon MD Unavailable [phone] Source Comments In the event this information is protected by the Federal Confidentiality of Alcohol and Drug AbusePatient Records regulations: The Federal rules restrict any use of the information to criminally investigate or prosecute any alcohol or drug abuse patient.[facility] Encounter Details Date Type Department Care Team (Late st Contact Info) Description 06/07/2021 Patient Msg General Surgery [address] [phone] Radha Cameron, BOWSTRING MAKER.GEOGRAPHIC INFORMATION SYSTEMS ANALYST [address] [place] [address] Scan Social History Tobacco Use Types Packs/Day Years [...] N ot on file 06/08/2020 Data from: https://www.neighborhoodatlas.medicine.[facility]/. Last address used for calculation Not on [...] 10:00 AM EDT Office Visit Cardiology [address] [place] [address] Heart failure with preserved ejection fraction, unspecified HF chronicity (HCC) [I50.30] 01/25/2025 11:30 AM EDT Results Only [facility] Draw Station [address] [place] [address] Heart failure with preserved ejection fraction, unspecified HF chronicity (HCC) [I50.30] 01/25/2025 12:30 PM EDT Office Visit Cardiology [address] [address] Heart failure with preserved ejection fraction, unspecified HF chronicity (HCC) [I50.30] 01/25/2025 3:00 PM EDT Office Visit Cardiology [address] [place] [address] Johanne Gee MD [address] [place] [address] Heart failure with preserved ejection [...] documented as of this encounter Care Teams Cloth Burler Relationship Specialty Start Date End Date Noah Swann MD PCP - General Family Medicine 06/16/20 Reed Leon MD [address] [place] [address] Primary Staff Physician Cardiology 11/08/20 documented as of this encounter
--- OUTSIDE RECORDS SUMMARY | 2024-10-19 09:41 | XMS_ITS | Encounter Summary ---
Author Organization [facility] Address [address] [place] [address] Care Team Providers Care Line Mover Name Role Phone Noah Swann MD Primary Care Provider [phone] Reed Leon MD Unavailable [phone] Source Comments In the event this information is protected by the Federal Confidentiality of Alcohol and Drug AbusePatient Records regulations: The Federal rules restrict any use of the information to criminally investigate or prosecute any alcohol or drug abuse patient.[facility] Encounter Details Date Type Department Care Team (Late st Contact Info) Description 06/06/2020 Patient Msg General Surgery [address] [place] [address] ProviderItzel Welcome to the BMI Program! Social History Tobacco Use Types Packs/Day Years Used Date Smoking Tobacco: Never Assessed Area Deprivation Index Answer Date Jamey rded National Score (1-100), lower number is lower ri sk Not on file 06/08/2020 State Score (1-10), lower number is lower risk N ot on file 06/08/2020 Data from: https://www.neighborhoodatlas.medicine.[facility].edu/. Last address used for calculation [...] 10:00 AM EDT Office Visit Cardiology [address] [place] [address] Heart failure with preserved ejection fraction, unspecified HF chronicity (HCC) [I50.30] 01/25/2025 11:30 AM EDT Results Only [facility] Draw Station [address] [place] [address] Heart failure with preserved ejection fraction, unspecified HF chronicity (HCC) [I50.30] 01/25/2025 12:30 PM EDT Office Visit Cardiology [address] [address] Heart failure with preserved ejection fraction, unspecified HF chronicity (HCC) [I50.30] 01/25/2025 3:00 PM EDT Office Visit Cardiology [address] [place] [address] Johanne Gee MD [address] [place], [place] [phone] Heart failure with preserved ejection fraction, unspecified [...] documented as of this encounter Care Teams Line Mover Relationship Specialty Start Date End Date Noah Swann MD PCP - General Family Medicine 06/16/20 Reed Leon MD [address] [place] [address] Primary Staff Physician Cardiology 11/08/20 documented as of this encounter
--- OUTSIDE RECORDS SUMMARY | 2024-10-19 09:41 | XMS_ITS | Encounter Summary ---
Author Organization [facility] Address [address] [place] [address] Care Team Providers Care Public Relations Studies Director Name Role Phone Noah Swann MD Primary Care Provider [phone] Reed Leon MD Unavailable [phone] Source Comments In the event this information is protected by the Federal Confidentiality of Alcohol and Drug AbusePatient Records regulations: The Federal rules restrict any use of the information to criminally investigate or prosecute any alcohol or drug abuse patient.[facility] Encounter Details Date Type Department Care Team (Late st Contact Info) Description 06/30/2024 Get Medical Advice Cardiology [address] [place] [address] Johanne Gee MD [address] [place] [address] Blood work Social History Tobacco Use Types Packs/Day Years Used Date Smoking Tobacco: Former Cigarettes 0.5 14.3 0 07/14/1969 - 11/1983 Smokeless Tobacco: Never Alcohol Use Standard Drinks/Week Comments Yes 2 (1 standard drink = 0.6 oz pur e alcohol) occasionally PHQ-2 Answer Date Recorded PHQ-2 score 0 06/03/2024 Area Deprivation Index Answer Date Jamey rded National Score (1-100), lower number is lower ri sk Not on file 06/08/2020 State Score (1-10), lower number is lower risk N ot on file 06/08/2020 Data from: https://www.neighborhoodatlas.medicine.[facility]/. Last address used for calculation Not [...] 10:00 AM EDT Office Visit Cardiology [address] [place] [address] Heart failure with preserved ejection fraction, unspecified HF chronicity (HCC) [I50.30] 01/25/2025 11:30 AM EDT Results Only [facility] Draw Station [address] [place] [address] Heart failure with preserved ejection fraction, unspecified HF chronicity (HCC) [I50.30] 01/25/2025 12:30 PM EDT Office Visit Cardiology [address] [address] Heart failure with preserved ejection fraction, unspecified HF chronicity (HCC) [I50.30] 01/25/2025 3:00 PM EDT Office Visit Cardiology [address] [place] [address] Johanne Gee MD [address] [place] [address] Heart failure with preserved ejection fraction, unspecified HF chronicity (HCC) [I50.30] documented as of this encounter Goals Goal Patient Goal Type Associated Problems Recent Progress Patient-Stated? Author Blood Pressure < 130/80 Blood Pressure 102/63( 024 11:21 AM EST) No Johanne Gee MD documented as of this encounter Visit Diagnoses Not on filedocumented in this encounter Care Teams Public Relations Studies Director Relationship Specialty Start Date End Date Noah Swann MD PCP - General Family Medicine 06/16/20 Reed Leon MD [address] [place] [address] Primary Staff Physician Cardiology 11/08/20 documented as of this encounter
--- OUTSIDE RECORDS SUMMARY | 2024-10-19 09:41 | XMS_ITS | Encounter Summary ---
Author Organization [facility] Address [address] [place] [address] Care Team Providers Care Gun Synchronizer Name Role Phone Noah Swann MD Primary Care Provider [phone] Reed Leon MD Unavailable Source Comments In the event this information is protected by the Federal Confidentiality of Alcohol and Drug AbusePatient Records regulations: The Federal rules restrict any use of the information to criminally investigate or prosecute any alcohol or drug abuse patient.[facility] Encounter Details Date Type Department Care Team (Late st Contact Info) Description 05/11/2021 Patient Msg General Surgery [address] [phone] Radha Cameron, CLASSIFICATION CLERK.RECEPTIONIST [address] [place] [address] Your Bariatric Surgery Social History Tobacco Use Types Packs/Day [...] N ot on file 06/08/2020 Data from: https://www.neighborhoodatlas.medicine.[facility]/. Last address used for calculation [...] 10:00 AM EDT Office Visit Cardiology [address] [place] [address] Heart failure with preserved ejection fraction, unspecified HF chronicity (HCC) [I50.30] 01/25/2025 11:30 AM EDT Results Only [facility] Draw Station [address] [place] [address] Heart failure with preserved ejection fraction, unspecified HF chronicity (HCC) [I50.30] 01/25/2025 12:30 PM EDT Office Visit Cardiology [address] [address] Heart failure with preserved ejection fraction, unspecified HF chronicity (HCC) [I50.30] 01/25/2025 3:00 PM EDT Office Visit Cardiology [address] [place] [address] Johanne Gee MD [address] [place] [address] Heart failure with preserved ejection [...] documented as of this encounter Care Teams Gun Synchronizer Relationship Specialty Start Date End Date Noah Swann MD PCP - General Family Medicine 06/16/20 Reed Leon MD [address] [place] [address] Primary Staff Physician Cardiology 11/08/20 documented as of this encounter
--- OUTSIDE RECORDS SUMMARY | 2024-10-19 09:41 | XMS_ITS | Encounter Summary ---
Author Organization [facility] Address [facility] [place] [address] Care Team Providers Care Header Up Name Role Phone Noah Swann MD Primary Care Provider [phone] Reed Leon MD Unavailable [phone] Source Comments In the event this information is protected by the Federal Confidentiality of Alcohol and Drug AbusePatient Records regulations: The Federal rules restrict any use of the information to criminally investigate or prosecute any alcohol or drug abuse patient.[facility] Encounter Details Date Type Department Care Team (Late st Contact Info) Description 08/30/2020 Patient Msg Cardiology [address] [phone] Provider, [facility] Upcoming Appt Social History Tobacco Use Types Packs/Day Years [...] N ot on file 06/08/2020 Data from: https://www.neighborhoodatlas.[facility]/. Last address used for calculation Not on [...] or suspected to have Coronavirus / COVID-19? Unable to assess 08/30/2020 3:04 PM EDT documented as of this encounter Plan of Treatment Upcoming Encounters Date Type Department Care Team ([facility] st Contact Info) Description 01/25/2025 10:00 AM EDT Office Visit Cardiology [address] [phone] Heart failure with preserved ejection fraction, unspecified HF chronicity (HCC) [I50.30] 01/25/2025 11:30 AM EDT Results Only [facility] Draw Station [address] [place] [address] Heart failure with preserved ejection fraction, unspecified HF chronicity (HCC) [I50.30] 01/25/2025 12:30 PM EDT Office Visit Cardiology [address] [address] Heart failure with preserved ejection fraction, unspecified HF chronicity (HCC) [I50.30] 01/25/2025 3:00 PM EDT Office Visit Cardiology [address] [phone] Johanne Gee MD [address] [place], [place] [phone] Heart failure with preserved ejection fraction, unspecified [...] documented as of this encounter Care Teams Header Up Relationship Specialty Start Date End Date Noah Swann MD PCP - General Family Medicine 06/16/20 Reed Leon MD [address] [place] [address] Primary Staff Physician Cardiology 11/08/20 documented as of this encounter
--- OUTSIDE RECORDS SUMMARY | 2024-10-19 09:41 | XMS_ITS | Encounter Summary ---
Author Organization [facility] Address [facility] [place] [address] Care Team Providers Care Embedded Systems Designer Name Role Phone Noah Swann MD Primary Care Provider [phone] Reed Leon MD Unavailable [phone] Source Comments In the event this information is protected by the Federal Confidentiality of Alcohol and Drug AbusePatient Records regulations: The Federal rules restrict any use of the information to criminally investigate or prosecute any alcohol or drug abuse patient.[facility] Encounter Details Date Type Department Care Team (Late st Contact Info) Description 06/10/2020 Patient Msg General Surgery [address] [place] [id number] Provider, Ccf colonoscopy prep Social History Tobacco Use Types Packs/Day Years Used Date Smoking Tobacco: Never Assessed Area Deprivation Index Answer Date Jamey rded National Score (1-100), lower number is lower ri sk Not on file 06/08/2020 State Score (1-10), lower number is lower risk N ot on file 06/08/2020 Data from: https://www.neighborhoodatlas.medicine.[facility].edu/. Last address used for calculation Not [...] 10:00 AM EDT Office Visit Cardiology [address] [place] [address] Heart failure with preserved ejection fraction, unspecified HF chronicity (HCC) [I50.30] 01/25/2025 11:30 AM EDT Results Only [facility] Draw [address] [place] [address] Heart failure with preserved ejection fraction, unspecified HF chronicity (HCC) [I50.30] 01/25/2025 12:30 PM EDT Office Visit Cardiology [address] [address] Heart failure with preserved ejection fraction, unspecified HF chronicity (HCC) [I50.30] 01/25/2025 3:00 PM EDT Office Visit Cardiology [address] [place] [address] Johanne Gee MD [address] [place], [place] [id number] Heart failure with preserved ejection fraction, unspecified [...] documented as of this encounter Care Teams Embedded Systems Designer Relationship Specialty Start Date End Date Noah Swann MD PCP - General Family Medicine 1/28/21 Reed Leon MD [address] [employer] [place] [phone] Primary Staff Physician Cardiology 11/08/20 documented as of this encounter
--- OUTSIDE RECORDS SUMMARY | 2024-10-19 09:41 | XMS_ITS | Encounter Summary ---
Author Organization [facility] Address [address] [place] [address] Care Team Providers Care Gear And Spline Grinder Name Role Phone Noah Swann MD Primary Care Provider [phone] Reed Leon MD Unavailable [phone] Source Comments In the event this information is protected by the Federal Confidentiality of Alcohol and Drug AbusePatient Records regulations: The Federal rules restrict any use of the information to criminally investigate or prosecute any alcohol or drug abuse patient.[facility] Encounter Details Date Type Department Care Team (Late st Contact Info) Description 06/27/2021 Get Medical Advice General Surgery [address] [place] [phone] Radha Cameron, PARTS IDENTIFIER.ENTRY LEVEL JAVA DEVELOPER [address] [place], [place] [phone] Mix up Social History Tobacco Use Types Packs/Day Years [...] N ot on file 06/08/2020 Data from: https://www.neighborhoodatlas.medicine.[facility]/. Last address used for calculation [...] 10:00 AM EDT Office Visit Cardiology [address] [place] [address] Heart failure with preserved ejection fraction, unspecified HF chronicity (HCC) [I50.30] 01/25/2025 11:30 AM EDT Results Only [facility] [address] [place] [address] Heart failure with preserved ejection fraction, unspecified HF chronicity (HCC) [I50.30] 01/25/2025 12:30 PM EDT Office Visit Cardiology [address] [address] Heart failure with preserved ejection fraction, unspecified HF chronicity (HCC) [I50.30] 01/25/2025 3:00 PM EDT Office Visit Cardiology [address] [place] [address] Johanne Gee MD [address] [place] [address] Heart failure with preserved ejection [...] documented as of this encounter Care Teams Gear And Spline Grinder Relationship Specialty Start Date End Date Noah Swann MD PCP - General Family Medicine 06/16/20 Reed Leon MD [address] [place] [address] Primary Staff Physician Cardiology 11/08/20 documented as of this encounter
--- OUTSIDE RECORDS SUMMARY | 2024-10-19 09:41 | XMS_ITS | Clinical Summary ---
Author Organization [facility] Healthcare Address [address] [place] [address] Care Team Providers Care Type Soldering Machine Tender Name Role Phone Unavailable Primary Care Provider Unavailabl e Social History Tobacco Use Types Packs/Day Years Used Date Smoking Tobacco: Never Assessed Comments Unknown Sex and Gender Information Value Date Recorded Sex Assigned at Not on file Legal Sex Female 7:25 PM EDT Gender Identity Not on file Sexual Orientation Not on file Last Filed Vital Signs Vital Sign Reading Time Taken Comments Blood Pressure - - Pulse - - Temperature - - Respiratory Rate - - Oxygen Saturation - - Inhaled Oxygen Concentration - - Weight 104 kg (230 lb) 04/05/2021 12:00 PM EST Height 165.1 cm (5' 5 ) 04/05/2021 12:00 PM EST Body Mass Index 38.27 04/05/2021 12:00 PM EST Plan of Treatment Upcoming Encounters Date Type Department Care Team (Late st Contact Info) Description 04/06/2026 8:00 AM EST Telemedicine [facility] [address] [place] [phone] Jr. Vidal Maciel, DO [address] [facility] [address] [place] [address] Insurance [facility]
--- OUTSIDE RECORDS SUMMARY | 2024-10-19 09:41 | XMS_ITS | Encounter Summary ---
Author Organization [facility] Address [address] [place] [address] Care Team Providers Care Educational Director Name Role Phone Noah Swann MD Primary Care Provider [phone] Reed Leon MD Unavailable [phone] Source Comments In the event this information is protected by the Federal Confidentiality of Alcohol and Drug AbusePatient Records regulations: The Federal rules restrict any use of the information to criminally investigate or prosecute any alcohol or drug abuse patient.[facility] Encounter Details Date Type Department Care Team (Late st Contact Info) Description 01/11/2021 Patient Msg Neurology [address] [place] [phone] Provider, Ccf RE: Confirming appt Social History Tobacco Use Types Packs/Day Years [...] N ot on file 06/08/2020 Data from: https://www.neighborhoodatlas.[facility]/. Last address used for calculation Not on [...] 10:00 AM EDT Office Visit Cardiology [address] [place] [address] Heart failure with preserved ejection fraction, unspecified HF chronicity (HCC) [I50.30] 01/25/2025 11:30 AM EDT Results Only [facility] [address] [place] [address] Heart failure with preserved ejection fraction, unspecified HF chronicity (HCC) [I50.30] 01/25/2025 12:30 PM EDT Office Visit Cardiology [address] [address] Heart failure with preserved ejection fraction, unspecified HF chronicity (HCC) [I50.30] 01/25/2025 3:00 PM EDT Office Visit Cardiology [address] [place] [address] Johanne Gee MD [address] [place], [place] [phone] Heart failure with preserved ejection fraction, unspecified [...] documented as of this encounter Care Teams Educational Director Relationship Specialty Start Date End Date Noah Swann MD PCP - General Family Medicine 06/16/20 Reed Leon MD [address] [place], [place] [phone] Primary Staff Physician Cardiology 11/08/20 documented as of this encounter
--- OUTSIDE RECORDS SUMMARY | 2024-10-19 09:41 | XMS_ITS | Encounter Summary ---
Author Organization [facility] Address [address] [place] [address] Care Team Providers Care Consumer Educator Name Role Phone Noah Swann MD Primary Care Provider [phone] Reed Leon MD Unavailable [phone] Source Comments In the event this information is protected by the Federal Confidentiality of Alcohol and Drug AbusePatient Records regulations: The Federal rules restrict any use of the information to criminally investigate or prosecute any alcohol or drug abuse patient.[facility] Encounter Details Date Type Department Care Team (Late st Contact Info) Description 02/20/2021 Patient Msg General Surgery [address] [place] [address] Provider, Ccf Nutrition summary Social [...] file 06/08/2020 Data from: https://www.neighborhoodatlas.[facility]/. Last address used for calculation Not on [...] 10:00 AM EDT Office Visit Cardiology [address] [place] [address] Heart failure with preserved ejection fraction, unspecified HF chronicity (HCC) [I50.30] 01/25/2025 11:30 AM EDT Results Only [facility] Draw [address] [place] [address] Heart failure with preserved ejection fraction, unspecified HF chronicity (HCC) [I50.30] 01/25/2025 12:30 PM EDT Office Visit Cardiology [address] [address] Heart failure with preserved ejection fraction, unspecified HF chronicity (HCC) [I50.30] 01/25/2025 3:00 PM EDT Office Visit Cardiology [address] [place] [address] Johanne Gee MD [address] [place] [address] Heart failure with preserved ejection fraction, unspecified [...] documented as of this encounter Care Teams Consumer Educator Relationship Specialty Start Date End Date Noah Swann MD PCP - General Family Medicine 06/16/20 Reed Leon MD [address] [place] [address] Primary Staff Physician Cardiology 11/08/20 documented as of this encounter
--- OUTSIDE RECORDS SUMMARY | 2024-10-19 09:41 | XMS_ITS | Encounter Summary ---
Author Organization [facility] Address [address] [place] [address] Care Team Providers Care Senior Maintenance Mechanic Name Role Phone Noah Swann MD Primary Care Provider [phone] Reed Leon MD Unavailable [phone] Source Comments In the event this information is protected by the Federal Confidentiality of Alcohol and Drug AbusePatient Records regulations: The Federal rules restrict any use of the information to criminally investigate or prosecute any alcohol or drug abuse patient.[facility] Encounter Details Date Type Department Care Team (Late st Contact Info) Description 04/24/2021 Get Medical Advice General Surgery [address] [place] [phone] Thad Morgan MD [address] [place] [address] Cpap Social History Tobacco Use Types Packs/Day Years [...] N ot on file 06/08/2020 Data from: https://www.neighborhoodatlas.medicine.[facility]/. Last address used for calculation Not on [...] of Assessment Author No 10/07/2020 9:19 AM ARVINDT Margaux Lan RN * Do you have [...] 10:00 AM EDT Office Visit Cardiology [address] [place] [address] Heart failure with preserved ejection fraction, unspecified HF chronicity (HCC) [I50.30] 01/25/2025 11:30 AM EDT Results Only [facility] [address] [place] [address] Heart failure with preserved ejection fraction, unspecified HF chronicity (HCC) [I50.30] 01/25/2025 12:30 PM EDT Office Visit Cardiology [address] [address] Heart failure with preserved ejection fraction, unspecified HF chronicity (HCC) [I50.30] 01/25/2025 3:00 PM EDT Office Visit Cardiology [address] [place] [address] Johanne Gee MD [address] [place] [address] Heart failure with preserved ejection [...] documented as of this encounter Care Teams Senior Maintenance Mechanic Relationship Specialty Start Date End Date Noah Swann MD PCP - General Family Medicine 06/16/20 Reed Leon MD [address] [place] [address] Primary Staff Physician Cardiology 11/08/20 documented as of this encounter
--- OUTSIDE RECORDS SUMMARY | 2024-10-19 09:41 | XMS_ITS | Encounter Summary ---
Author Organization [facility] Address [address] [place] [address] Care Team Providers Care Spiral Gear Generator Name Role Phone Noah Swann MD Primary Care Provider [phone] Reed Leon MD Unavailable [phone] Source Comments In the event this information is protected by the Federal Confidentiality of Alcohol and Drug AbusePatient Records regulations: The Federal rules restrict any use of the information to criminally investigate or prosecute any alcohol or drug abuse patient.[facility] Encounter Details Date Type Department Care Team (Late st Contact Info) Description 02/16/2021 Patient Msg Cardiology [address] [place] [address] Reed Leon MD [address] [place] [address] Cholesterol update Social History Tobacco Use Types Packs/Day Years [...] on file 06/08/2020 Data from: https://www.neighborhoodatlas.medicine.[facility]/. Last address used for calculation Not [...] 10:00 AM EDT Office Visit Cardiology [address] [place] [address] Heart failure with preserved ejection fraction, unspecified HF chronicity (HCC) [I50.30] 01/25/2025 11:30 AM EDT Results Only [facility] [address] [place] [address] Heart failure with preserved ejection fraction, unspecified HF chronicity (HCC) [I50.30] 01/25/2025 12:30 PM EDT Office Visit Cardiology [address] [address] Heart failure with preserved ejection fraction, unspecified HF chronicity (HCC) [I50.30] 01/25/2025 3:00 PM EDT Office Visit Cardiology [address] [place] [address] Johanen Gee MD [address] [place] [address] Heart failure with preserved ejection [...] documented as of this encounter Care Teams Spiral Gear Generator Relationship Specialty Start Date End Date Noah Swann MD PCP - General Family Medicine 06/16/20 Reed Leon MD [address] [place] [address] Primary Staff Physician Cardiology 11/08/20 documented as of this encounter
--- OUTSIDE RECORDS SUMMARY | 2024-10-19 09:41 | XMS_ITS | Encounter Summary ---
Author Organization [facility] Address [facility] [place] [address] Care Team Providers Care Order Entry Representative Name Role Phone Noah Swann MD Primary Care Provider [phone] Reed Leon MD Unavailable [phone] Source Comments In the event this information is protected by the Federal Confidentiality of Alcohol and Drug AbusePatient Records regulations: The Federal rules restrict any use of the information to criminally investigate or prosecute any alcohol or drug abuse patient.[facility] Encounter Details Date Type Department Care Team (Late st Contact Info) Description 06/10/2020 Patient Msg General Surgery [address] [place] [phone] Provider, Ccf EGD instructions Social History Tobacco Use Types Packs/Day Years Used Date Smoking Tobacco: Never Assessed Area Deprivation Index Answer Date Jamey rded National Score (1-100), lower number is lower ri sk Not on file 06/08/2020 State Score (1-10), lower number is lower risk N ot on file 06/08/2020 Data from: https://www.neighborhoodatlas.medicine.[facility].edu/. Last address used for calculation Not [...] 10:00 AM EDT Office Visit Cardiology [address] [place] [address] Heart failure with preserved ejection fraction, unspecified HF chronicity (HCC) [I50.30] 01/25/2025 11:30 AM EDT Results Only [facility] [address] [place] [address] Heart failure with preserved ejection fraction, unspecified HF chronicity (HCC) [I50.30] 01/25/2025 12:30 PM EDT Office Visit Cardiology [address] [address] Heart failure with preserved ejection fraction, unspecified HF chronicity (HCC) [I50.30] 01/25/2025 3:00 PM EDT Office Visit Cardiology [address] [place] [address] Johanne Gee MD [address] [place], [place] [phone] Heart failure with preserved ejection fraction, unspecified [...] documented as of this encounter Care Teams Order Entry Representative Relationship Specialty Start Date End Date Noah Swann MD PCP - General Family Medicine 06/16/20 Reed Leon MD [address] [place] [phone] Primary Staff Physician Cardiology 11/08/20 documented as of this encounter
--- OUTSIDE RECORDS SUMMARY | 2024-10-19 09:41 | XMS_ITS | Encounter Summary ---
Author Organization [facility] Address [address] [place] [address] Care Team Providers Care Pony Edger Name Role Phone Noah Swann MD Primary Care Provider [phone] Reed Leon MD Unavailable [phone] Source Comments In the event this information is protected by the Federal Confidentiality of Alcohol and Drug AbusePatient Records regulations: The Federal rules restrict any use of the information to criminally investigate or prosecute any alcohol or drug abuse patient.[facility] Encounter Details Date Type Department Care Team (Late st Contact Info) Description 06/27/2021 Patient Msg General Surgery [address] [place] [address] Provider, Ccf Nutrition summary Social [...] N ot on file 06/08/2020 Data from: https://www.neighborhoodatlas.[facility]/. Last address used for calculation Not [...] 10:00 AM EDT Office Visit Cardiology [address] [place] [address] Heart failure with preserved ejection fraction, unspecified HF chronicity (HCC) [I50.30] 01/25/2025 11:30 AM EDT Results Only [facility] Draw [address] [place] [address] Heart failure with preserved ejection fraction, unspecified HF chronicity (HCC) [I50.30] 01/25/2025 12:30 PM EDT Office Visit Cardiology [address] [address] Heart failure with preserved ejection fraction, unspecified HF chronicity (HCC) [I50.30] 01/25/2025 3:00 PM EDT Office Visit Cardiology [address] [place] [address] Johanne Gee MD [address] [place] [address] Heart failure with preserved ejection fraction, unspecified [...] documented as of this encounter Care Teams Pony Edger Relationship Specialty Start Date End Date Noah Swann MD PCP - General Family Medicine 06/16/20 Reed Leon MD [address] [place] [address] Primary Staff Physician Cardiology 11/08/20 documented as of this encounter
--- OUTSIDE RECORDS SUMMARY | 2024-10-19 09:41 | XMS_ITS | Encounter Summary ---
Author Organization [facility] Address [address] [place] [address] Care Team Providers Care Wrecking Supervisor Name Role Phone Noah Swann MD Primary Care Provider [phone] Reed Leon MD Unavailable [phone] Source Comments In the event this information is protected by the Federal Confidentiality of Alcohol and Drug AbusePatient Records regulations: The Federal rules restrict any use of the information to criminally investigate or prosecute any alcohol or drug abuse patient.[facility] Encounter Details Date Type Department Care Team (Late st Contact Info) Description 01/09/2022 Patient Msg General Surgery [address] [place] [address] Provider, Ccf Nutrition Summary Social History Tobacco Use Types Packs/Day Years Used Date Smoking Tobacco: Former Cigarettes 0.5 14.3 0 07/14/1969 - 11/1983 Smokeless Tobacco: Never Alcohol Use Standard Drinks/Week Comments Yes 2 (1 standard drink = 0.6 oz pur e alcohol) occasionally PHQ-2 Answer Date Recorded PHQ-2 score 0 12/11/2021 Area Deprivation Index Answer Date Jamey rded National Score (1-100), lower number is lower ri sk Not on file 06/08/2020 State Score (1-10), lower number is lower risk N ot on file 06/08/2020 Data from: https://www.neighborhoodatlas.[facility]/. Last address used for calculation [...] of Assessment Author No 11/16/2021 4:25 PM Chapo Nina RN * Do you have difficulty [...] 10:00 AM EDT Office Visit Cardiology [address] [place] [address] Heart failure with preserved ejection fraction, unspecified HF chronicity (HCC) [I50.30] 01/25/2025 11:30 AM EDT Results Only [facility] Draw Station [address] [place] [address] Heart failure with preserved ejection fraction, unspecified HF chronicity (HCC) [I50.30] 01/25/2025 12:30 PM EDT Office Visit Cardiology [address] [address] Heart failure with preserved ejection fraction, unspecified HF chronicity (HCC) [I50.30] 01/25/2025 3:00 PM EDT Office Visit Cardiology [address] [place] [address] Johanne Gee MD [address] [place] [address] Heart failure with preserved ejection fraction, unspecified HF chronicity (HCC) [I50.30] documented as of this encounter Visit Diagnoses Not on filedocumented in this encounter Care Teams Wrecking Supervisor Relationship Specialty Start Date End Date Noah Swann MD PCP - General Family Medicine 06/16/20 Reed Leon MD [address] [place] [address] Primary Staff Physician Cardiology 11/08/20 documented as of this encounter
--- OUTSIDE RECORDS SUMMARY | 2024-10-19 09:41 | XMS_ITS | Encounter Summary ---
Author Organization [facility] Address [address] [place] [address] Care Team Providers Care Replanting Machine Crewman Name Role Phone Noah Swann MD Primary Care Provider [phone] Reed Leon MD Unavailable [phone] Source Comments In the event this information is protected by the Federal Confidentiality of Alcohol and Drug AbusePatient Records regulations: The Federal rules restrict any use of the information to criminally investigate or prosecute any alcohol or drug abuse patient.[facility] Encounter Details Date Type Department Care Team (Late st Contact Info) Description 04/10/2021 Patient Msg Neurology [address] [address] Soo Vyas, DRYWALL STRIPPER.CENTRIFUGAL MACHINE TENDER [address] [place] [address] starting CPAP Social History Tobacco Use Types Packs/Day Years [...] N ot on file 06/08/2020 Data from: https://www.neighborhoodatlas.medicine.[facility]/. Last address used for calculation [...] 10:00 AM EDT Office Visit Cardiology [address] [place] [address] Heart failure with preserved ejection fraction, unspecified HF chronicity (HCC) [I50.30] 01/25/2025 11:30 AM EDT Results Only [facility] Draw [address] [place] [address] Heart failure with preserved ejection fraction, unspecified HF chronicity (HCC) [I50.30] 01/25/2025 12:30 PM EDT Office Visit Cardiology [address] [address] Heart failure with preserved ejection fraction, unspecified HF chronicity (HCC) [I50.30] 01/25/2025 3:00 PM EDT Office Visit Cardiology [address] [place] [address] Johanne Gee MD [address] [place] [address] Heart failure with preserved ejection [...] documented as of this encounter Care Teams Replanting Machine Crewman Relationship Specialty Start Date End Date Noah Swann MD PCP - General Family Medicine 06/16/20 Reed Leon MD [address] [place] [address] Primary Staff Physician Cardiology 11/08/20 documented as of this encounter
--- NOTE | 2024-10-19 09:48 | ED.GENADUL1 ---
HPI HPI - General Adult General Chief complaint: Syncope Stated complaint: DIZZINESS FAINTED Time Seen by Provider: 10/19/24 09:47 Source: patient Mode of arrival: walk-in Limitations: no limitations History of Present Illness HPI narrative: The patient is a 59-year-old female with history of coronary disease and according to her she has been having also some chronic dizziness she usually wake up and feeling dizzy dizzy but after taking her medication by few hours into the day she does not have any dizziness. The patient mentioned that she woke up today's and had no complaint but after she was trying to take few steps into the room she had some dizziness and felt like she is going to pass out according to the she was grabbing to the chair, the patient then lowered herself to the floor there was no head injury The patient according to the passed out for few seconds when he tried to wake up she woke up said that she felt that she is a little bit confused although she did recognize them, she denies any chest pain nausea vomiting or any other complaints, she also denies any feeling that her heart racing The patient mentioned that she usually feels dizzy when she stands up but today she feels like she is going to pass out after a few steps, she denies any diarrhea nausea vomiting or other complaint She also denies any chest pain or any chest pressure Related Data Home Medications ?Medication ?Instructions ?Recorded ?Confirmed aspirin 81 mg tablet,delayed 81 mg 06/26/23 release atorvastatin 80 mg tablet 80 mg 06/26/23 carvedilol 25 mg tablet 25 mg 06/26/23 colesevelam 625 mg tablet mg 06/26/23 empagliflozin 10 mg tablet 10 mg 06/26/23 (Jardiance) ezetimibe 10 mg tablet mg 06/26/23 isosorbide mononitrate 60 mg 60 mg PO 06/26/23 tablet,extended release 24 hr pantoprazole 40 mg tablet,delayed 40 mg PO 06/26/23 release sacubitril 24 mg-valsartan 26 mg tab 06/26/23 tablet (Entresto) Allergies Allergy/AdvReac Type Severity Reaction Status Date / Time No Known Drug Allergies Allergy Verified 10/19/24 09:42 Review of Systems ROS Status of ROS 10 or more systems reviewed and unremarkable except as noted in history and below PFSH PFSH Social History Smoking status: Never smoker Little interest or pleasure in doing things: not at all Feeling down, depressed, or hopeless: not at all Exam Narrative Exam Narrative: Nurses notes and vital signs reviewed and patient is not hypoxic. General: Well-appearing and in no apparent distress. Skin: Warm, dry, no pallor noted. No rash. Head: Normocephalic, atraumatic. Neck: Supple, non-tender. Eye: Pupils are equal, round and EOMI. No scleral icterus. Ears, Nose, Mouth, and Throat: TM are clear, no nasal mucosal hypertrophy. Oral mucosa is moist, no posterior oropharynx erythema, uvula is mid-line Cardiovascular: Regular Rate and Rhythm without murmur, gallop or rub. Respiratory: No accessory muscle use or respiratory distress. Lungs are clear to auscultation, no wheezing, rales or rhonchi Chest Wall: no tenderness Back: No midline thoracic or lumbar vertebral tenderness. No CVA tenderness Musculoskeletal: normal ROM, no calf or popliteal tenderness, no lower extremity edema/swelling GI: Abdomen is soft, non-distended. Normal bowel sounds. No masses appreciated. No tenderness to palpation. No rebound, guarding, or rigidity noted. Neurological: A&O x4. No cranial nerve dysfunction observed. No truncal ataxia. Moves all extremities. Sensation intact. Psychiatric: Cooperative and interactive. Normal mood and affect. Constitutional Vital Signs, click to edit/add: Last Vital Signs Temp 98.9 F 10/19/24 09:43 Pulse 84 10/19/24 10:30 Resp 17 10/19/24 10:30 BP 122/73 10/19/24 10:30 Pulse Ox 96 10/19/24 10:30 O2 Del Method Room Air 10/19/24 09:43 Course Vital Signs Vital signs: Vital Signs Temperature 98.9 F 10/19/24 09:43 Pulse Rate 81 10/19/24 09:43 Respiratory Rate 20 10/19/24 09:43 Blood Pressure 149/77 H 10/19/24 09:43 Pulse Oximetry 97 10/19/24 09:43 Oxygen Delivery Method Room Air 10/19/24 09:43 Temperature 98.9 F 10/19/24 09:43 Pulse Rate 84 10/19/24 10:30 Respiratory Rate 17 10/19/24 10:30 Blood Pressure 122/73 10/19/24 10:30 Pulse Oximetry 96 10/19/24 10:30 Oxygen Delivery Method Room Air 10/19/24 09:43 Medical Decision Making [facility] Narrative Medical decision making narrative: The patient EKG upon arrival showing sinus rhythm with a heart rate of [address] elevation that is acute compared to the old EKGs or any ST depression The patient CBC showed no acute pathology and the chemistry showing elevation of the BUN which is mostly secondary to dehydration The patient presentation could be secondary to dehydration specially with the standing up position causing her to be dizzy The patient troponin is repeated and it is negative The patient was provided IV fluid after which she was feeling much better she was discharged home after she was able to ambulate with no difficulty in the ER The patient is to follow up with primary care physician in next 2-3 days or to return to the emergency department should any of the signs or symptoms worsen or new symptoms develop. The patient agrees with the following Diagnosis and Treatment plan and the patient will be discharged home. Lab Data Labs: Lab Results 10/19/24 10/19/24 Range/Units 09:52 11:55 WBC 8.5 (4.0-11.0) 10^3/uL RBC 4.27 (4.20-5.40) 10^6/uL Hgb 13.0 (12.0-16.0) g/dL Hct 40.1 (36.0-48.0) % MCV 93.9 (81.0-99.0) fL MCH 30.4 (26.7-34.0) pg MCHC 32.4 (29.9-35.2) g/dL RDW 13.1 (11.0-15.0) % Plt Count 286 (150-450) 10^3/uL MPV 8.9 L (9.5-13.5) fL Neut % (Auto) 65.2 (43.0-75.0) % Lymph % (Auto) 21.3 (20.5-60.0) % [place] % (Auto) 9.3 (1.7-12.0) % Eos % (Auto) 3.4 (0.9-7.0) % Baso % (Auto) 0.6 (0.2-2.0) % Neut # (Auto) 5.5 (1.4-6.5) 10^3/uL Lymph # (Auto) 1.8 (1.2-3.8) 10^3/uL [place] # (Auto) 0.8 (0.3-0.8) 10^3/uL Eos # (Auto) 0.3 (0.0-0.7) 10^3/uL Baso # (Auto) 0.1 (0.0-0.1) 10^3/uL Abs Immat Gran (auto) 0.02 (0.00-0.03) 10^3/uL Imm/Tot Granulo (auto) 0.2 (0.0-0.5) % PT 11.3 (9.0-11.6) sec INR 1.07 Sodium 141 (136-145) mmol/L Potassium 4.6 (3.5-5.1) mmol/L Chloride 106 (98-107) mmol/L Carbon Dioxide 28.7 (21.0-32.0) mmol/L Anion Gap 10.9 BUN 26.0 H (7.0-18.0) mg/dL Creatinine 0.80 (0.55-1.02) mg/dL Est GFR ( Amer) >60 (>=60 mL/min/1.73m^2) Est GFR (Non-Af Amer) >60 (>=60 mL/min/1.73m^2) BUN/Creatinine Ratio 32.5 Glucose 228 H (74-106) mg/dL Calcium 9.2 (8.5-10.1) mg/dL Magnesium 2.1 (1.8-2.4) mg/dL Total Bilirubin 1.0 (0.2-1.0) mg/dL AST 17 (15-37) U/L ALT 32 (14-59) U/L Alkaline Phosphatase 81 (46-116) U/L Troponin I High Sens 8.1 6.0 (4.0-51.3) pg/mL Total Protein 6.5 (6.4-8.2) g/dL Albumin 3.5 (3.4-5.0) g/dL Globulin 3.0 g/dL Albumin/Globulin Ratio 1.2 Discharge Plan Discharge Chief Complaint: Syncope Clinical Impression: Dizziness, Dehydration, Syncope due to orthostatic hypotension Patient Disposition: Home, Self-Care Time of Disposition Decision: 12:25 Condition: Good Prescriptions / Home Meds: No Action atorvastatin 80 mg tablet 80 mg carvedilol 25 mg tablet 25 mg aspirin 81 mg tablet,delayed release (DR/EC) 81 mg isosorbide mononitrate 60 mg tablet extended release 24 hr 60 mg PO colesevelam 625 mg tablet pantoprazole 40 mg tablet,delayed release (DR/EC) 40 mg PO ezetimibe 10 mg tablet Jardiance 10 mg tablet 10 mg Entresto 24-26 mg tablet Print Language: Bengali Instructions: Dehydration (DC) Referrals: Noah Swann MD [Primary Care Provider, Family Practice] - 1 week Discharge Date/Time: 10/19/24 12:37
--- NOTE | 2024-10-19 09:49 | ECG_ITS ---
[facility] Test Date: 2024-10-19 Pat Name: MUNIRA CALHOUN Department: Room: - Gender: Female Rn Ed: : 1965 Requested By: [id number] Order Number: [id number] Reading MD: MARIO CONTRERAS M.D. Measurements Intervals [place] Rate: 79 P: 5 NM: 150 QRS: -4 QRSD: 78 T: 32 QT: 366 QTc: 400 Interpretive Statements 1100 Sinus rhythm 3114 Cannot rule out anterior myocardial infarction, age undetermined 3614 Cannot rule out inferior myocardial infarction, age undetermined 8102 Low QRS voltage in chest leads 9150 abnormal ECG Compared to ECG 09/19/2021 08:26:51 Ventricular premature complex(es) no longer present Myocardial infarct finding still present Electronically Signed On 10-19-2024 17:58:48 EDT by MARIO CONTRERAS M.D.
[2024-10-19 10:01] LABS: Basophils Absolute Auto 0.1 10^3/uL (0.0-0.1); Basophils Percent Auto 0.6 % (0.2-2.0); Eosinophils Absolute Auto 0.3 10^3/uL (0.0-0.7); Eosinophils Percent Auto 3.4 % (0.9-7.0); Hematocrit 40.1 % (36.0-48.0); Immature Granulocytes Abs Auto 0.02 10^3/uL (0.00-0.03); Immature Granulocytes Pct Auto 0.2 % (0.0-0.5); Lymphocytes Absolute Auto 1.8 10^3/uL (1.2-3.8); Lymphocytes Percent Auto 21.3 % (20.5-60.0); Mean Corpuscular HGB Conc 32.4 g/dL (29.9-35.2); Mean Corpuscular Hemoglobin 30.4 pg (26.7-34.0); Mean Corpuscular Volume 93.9 fL (81.0-99.0); Mean Platelet Volume 8.9 fL (9.5-13.5); Monocytes Absolute Auto 0.8 10^3/uL (0.3-0.8); Monocytes Percent Auto 9.3 % (1.7-12.0); Neutrophils Absolute Auto 5.5 10^3/uL (1.4-6.5); Neutrophils Percent Auto 65.2 % (43.0-75.0); Platelet Count 286 10^3/uL (150-450); Red Blood Count 4.27 10^6/uL (4.20-5.40); Red Cell Distribution Width 13.1 % (11.0-15.0); White Blood Count 8.5 10^3/uL (4.0-11.0)
[2024-10-19 10:14] LABS: INR 1.07; Prothrombin Time 11.3 sec (9.0-11.6)
[2024-10-19 10:20] LABS: Alanine Aminotransferase 32 U/L (14-59); Albumin Globulin Ratio 1.2; Albumin Level 3.5 g/dL (3.4-5.0); Alkaline Phosphatase 81 U/L (46-116); Anion Gap 10.9; Aspartate Amino Transferase 17 U/L (15-37); BUN Creatinine Ratio 32.5; Calcium 9.2 mg/dL (8.5-10.1); Carbon Dioxide 28.7 mmol/L (21.0-32.0); Chloride 106 mmol/L (98-107); Estimated GFR (African America >60 (>=60 mL/min/1.73m^2); Estimated GFR (Non-African Ame >60 (>=60 mL/min/1.73m^2); Glucose 228 mg/dL (74-106); Magnesium 2.1 mg/dL (1.8-2.4); Potassium 4.6 mmol/L (3.5-5.1); Sodium 141 mmol/L (136-145); Total Protein 6.5 g/dL (6.4-8.2); Troponin I High Sensitivity 8.1 pg/mL (4.0-51.3)
[2024-10-19] MEDS: 0.9 % SODIUM CHLORIDE 1,000 ML 500 ML IV (10:34)
== END 2024-10-19 12:37 | disposition home or self-care (01) ==
PROVIDERS: Emergency Provider Emergency Medicine; PCP Family Medicine
DX: R42 Dizziness and giddiness (principal); E86.0 Dehydration; I95.1 Orthostatic hypotension; I25.10 Atherosclerotic heart disease of native coronary artery without angina pectoris
CPT/HCPCS: 36415; 80053; 83735; 84484; 85025; 85610; 93005; 99285

== ENCOUNTER 2025-02-25 09:58 | Outpatient (OUT) | payer BC, SELFPAY ==
--- NOTE | 2025-02-25 10:03 | MM_ITS ---
Patient Name: MUNIRA CALHOUN MR#: [id number] : 1965 Exam Date: 02/25/2025 Ordering Doctor: DR PATTI VALDEZ . RADIOLOGY REPORT PROCEDURE: MM TOMOSYNTHESIS SCREENING BI COMPARISON: MM TOMOSYNTHESIS SCREENING BI, 02/24/2024. MG MAMM SCREEN FAROOQ W CAD, 11/24/2019. MG MAMM SCREEN FAROOQ W CAD, 10/27/2018. MG MAMM FAROOQ SCRN W CAD DIG, 05/28/2014. INDICATIONS: Screening Calculator Name NCI Breast Cancer Risk Assessment Tool 5 Year Breast Cancer Risk 1.20% Lifetime Breast Cancer Risk 5.70% Personal Breast Cancer No Personal Ovarian Cancer No Treatments None Family Cancers Grandmother-maternal with breast cancer at age 87. LOCATION: [facility] BREAST COMPOSITION: The breasts are heterogeneously dense, which may obscure small masses. FINDINGS: DIAGNOSTIC CATEGORY 1--NEGATIVE. RIGHT BREAST: No significant suspicious finding. LEFT BREAST: No significant suspicious finding. RECOMMENDATIONS: ROUTINE MAMMOGRAM AND CLINICAL EVALUATION IN 12 MONTHS. Dictated by: Chu He DO on 02/25/2025 at 14:37 Approved by: Chu He DO on 02/25/2025 at 14:39
--- OUTSIDE RECORDS SUMMARY | 2025-02-25 10:13 | XMS_ITS | CCD ---
Author Organization [facility] Care Team Providers Care Voice Engineer Name Role Phone Patti Valdez MD Primary Care Provider [phone] Reed Leon MD Unavailable [phone] JOSÉ MIGUEL, DR ARMSTRONG Primary Care Unavailable [...] Unavailable HOY, DR ARMSTRONG Primary Care Unavailable WEST, DR AUNDREA Quintero Consulting Unavailable FELIPE STRICKLAND Consulting Unavailable JOSÉ MIGUEL, DR ARMSTRONG Admitting Unavailable HOY, DR ARMSTRONG Attending Unavailable HOY, DR ARMSTRONG Consulting Unavailable SAHILY, DR ARMSTRONG Primary Care Unavailable AUNDREA GOSS Consulting Unavailable FELIPE STRICKLAND Consulting Unavailable JOSÉ MIGUEL, DR ARMSTRONG Admitting Unavailable HOY, DR ARMSTRONG Attending Unavailable HOY, DR ARMSTRONG Primary Care Unavailable Patti Valdez MD Primary Care Provider [phone] Reed Leon MD Unavailable Patti Valdez MD Primary Care Provider [phone] Patti Valdez MD Primary Care Provider [phone] Reed Leon MD Unavailable Patti Valdez MD Primary Care Provider [phone] PATTI VALDEZ Primary Care Unavailable Johanne SNIDER Attending Unavailable PATTI VALDEZ Primary Care Unavailable Johanne SNIDER Attending Unavailable Johanne SNIDER Referring Unavailable Johanne SNIDER Referring Unavailable PATTI VALDEZ Primary Care Unavailable Johanne SNIDER Referring Unavailable PATTI VALDEZ Primary Care Unavailable Johanne SNIDER Referring Unavailable PATTI VALDEZ Primary Care Unavailable Medications Current Medications Medication Drug Class(es) Dates Sig (Normalized) Sig (Original) aspirin 81 mg delayed release oral tablet (20 sources) Platelet Aggregation Inhibitor, Nonsteroidal Anti-inflammatory Drug Start: 12-14-2022 End: 12-27-2023 take 1 tablet by mouth once daily aspirin, enteric coated (ASPIR-81) 81 mg EC tablet Take 1 tablet by mouth once daily. 90 tablet 3 12/27/2022 Active Start: 04-24-2017 End: 12-14-2022 aspirin (ASPIR-81 ORAL) once daily. 0 04/24/2017 12/14/2022 Discontinued Start: 04-24-2017 aspirin (ASPIR -81 ORAL) once daily. 0 04/24/2017 Active Start: 04-24-2017 aspirin (ASPIR -81 ORAL) once daily. 0 04/24/2017 Suspended Comment on above: once daily. Take 1 tablet by arlette th once daily. atorvastatin 80 mg oral tablet (20 sources) HMG-CoA Reductase Inhibitor Start: 2 End: 3 take 1 tablet by mouth once daily atorvastatin (LIPITOR) 80 mg tablet Indications: Coronary artery disease involving [place] coronary artery of [place] heart, unspecified whether angina present take 1 tablet by mouth once daily 90 tablet 3 12/01/2021 Active Start: 11-09-2020 End: 11-09-2021 take 1 tablet by mouth once daily atorvastatin (LIPITOR) 80 mg tablet Indications: Coronary artery disease involving [place] coronary artery of [place] heart, unspecified whether angina present Take 1 [...] tablet by mouth twice daily with meals. 12/14/2022 Active Start: 08-07-2021 End: 12-14-2022 take 2 tablets by mouth twice daily at mealtime carvedilol (COREG) 12.5 mg tablet Take 2 tablets by mouth twice daily with meals. 0 08/07/2021 12/14/2022 Discontinued (Adjust Sig - Block E-Cancel) Start: 04-06-2021 End: 08-07-2021 take 1 tablet by mouth twice daily at mealtime carvedilol (COREG) 12.5 mg tablet Take 1 tablet by mouth twice daily with meals. 180 tablet 3 04/06/2021 08/07/2021 Discontinued Comment on above: Take 1 tablet by arlette twice daily with meals. Take 2 tablets by mo [facility] twice daily with meals. colesevelam hydrochloride 625 mg oral tablet (20 sources) Bile Acid Sequestrant Start: 05-31-2020 WELCHOL 625 mg tablet 1,875 mg once daily. 05/31/2020 Active Comment on above: 1,875 mg once daily. CPAP (20 sources) Start: 04-10-2021 CPAP Please Expedite for upcoming surgery. Settings [...] and Norepinephrine Reuptake Inhibitor Start: 020 End: 06-09-2 022 DULoxetine (CYMBALTA) 60 mg capsule Take [...] mononitrate 60 mg extended release oral tablet (20 sources) Nitrate Vasodilator End: 09-15-19 22 take 1 tablet by mouth once daily, then take 1 tablet by mouth every twenty-four hours isosorbide mononitrate ER (IMDUR) 60 mg 24 hr tablet Take 60 mg by mouth once daily. Active Comment on above: Take 60 mg by mouth once daily. multivit-min/iron/foli c acid/K (BARIATRIC MULTIVITAMINS ORAL) (5 sources) Start: 01-13-20 take 1 tablet by mouth once daily multivit-min/iron/fol ic acid/K (BARIATRIC MULTIVITAMINS ORAL) Take 1 tablet by mouth once daily. 01/12/2022 Active Start: 01-12-2022 take 1 tablet by arlette th once daily multivit-min/iron/folic acid/K (BARIATRI C MULTIVITAMINS ORAL) Take 1 tablet by mouth once daily. 0 01/12/2022 Active Comment on above: Take 1 tablet by arlette th once daily. oxyCODONE hydrochloride 5 mg oral tablet (1 source) Opioid Agonist Start: 2 End: 2 take 1 tablet by mouth every eight [...] tablet (20 sources) Proton Pump Inhibitor Start: 1 take 1 tablet by mouth once daily pantoprazole DR (PROTONIX) 40 mg tablet Take 1 tablet by mouth once daily. 30 tablet 2 06/24/2020 Active Comment on above: Take 1 tablet by arlette th once daily. 125 ml sodium chloride 9 mg/ml prefilled syringe (17 sources) Start: 1 End: 2 sodium chloride 0.9 % (flush) 10 mL (BD POSIFLUSH) vitamin b complex capsule (18 sources) take 1 capsule by mouth once daily vitamin b complex capsule Take 1 capsule by mouth once daily. Active take 1 capsule by mouth once jade ly vitamin b complex capsule Take 1 capsule by mouth once daily. 0 Active Comment on above: Take [address] [facility] once daily. Completed/Discontinued Medications Medication Drug Class(es) Dates Sig (Normalized) Sig (Original) cetirizine hydrochloride 10 mg oral capsule (4 sources) Histamine-1 Receptor Antagonist End: 06-10-2024 take 1 capsule by mouth once daily Cetirizine (ZYRTEC) 10 mg cap Take 1 capsule by mouth once daily. 06/10/2024 Discontinued (Course of therapy completed) Comment on above: Take [address] [facility] once daily. cholecalciferol 1.25 mg oral capsule (11 sources) Vitamin D Start: 07-17-2020 End: 10-24-2021 take 1 capsule by mouth every week cholecalciferol, Vitamin D3, (VITAMIN D3) 1,250 mcg (50,000 unit) cap capsule Take 1 capsule by mouth one time a week. 12 capsule 0 07/17/2020 10/24/2021 Discontinued Comment on above: Take [address] [facility] one time a week. clopidogrel 75 mg oral tablet (13 sources) P2Y12 Platelet Inhibitor Start: 10-08-2020 End: 10-26-2021 take 1 tablet by mouth once daily clopidogrel (PLAVIX) 75 mg tablet Take 1 tablet by mouth once daily. 90 tablet 3 10/08/2020 10/26/2021 Discontinued (Discontinued by another Health Care Provider) Comment on above: Take 1 tablet by [facility] once daily. FREESTYLE DESIREE 14 DAY SENSOR kit (20 sources) Start: 08-22-2021 End: 12-14-2022 FREESTYLE DESIREE 14 DAY SENSOR kit apply 1 SENSOR to back OF UPPER ARM REMOVE AND REPLACE every 14 d... (REFER TO PRESCRIPTION NOTES). 0 08/22/2021 12/14/2022 Discontinued Start: 08-22-2021 FREESTYLE LIBR E 14 DAY SENSOR kit apply 1 SENSOR to back OF UPPER ARM REMOVE AND REPLACE every 14 d... (REFER TO PRESCRIPTION NOTES). 0 08/22/2021 Active Comment on above: apply 1 SENSOR to back OF UPPER ARM CLYDE VE AND REPLACE every 14 d... (REFER TO PRESCRIPTION NOTES). fremanezumab-vf rm (AJOVY SYRINGE SUBCUTANEOUS) (20 sources) End: 12-15-19 inject 1 dose by subcutaneous injection every month fremanezumab-vfrm (AJOVY SYRINGE SUBCUTANEOUS) Inject 1 Dose subcutaneously once every month. 0 12/14/2022 Discontinued inject 1 dose by sub cutaneous injection [...] injector (20 sources) Insulin Analog Start: 08-08-19 End: 12-15-19 23 LANTUS SOLOSTAR U-100 INSULIN 100 unit/mL (3 mL) Inject 30 Units subcutaneously as directed. 0 08/07/2021 12/14/2022 Discontinued Start: 10-21-2020 End: 08-07-2021 LANTUS SOLOSTAR U-100 INSULI N 100 unit/mL (3 mL) Inject 20 Units subcutaneously as directed. 0 10/21/2020 08/07/2021 Discontinued Comment on above: Inject 20 Units subc utaneously as directed. Inject 30 Units subc utaneously as directed. 3 ml insulin lispro 100 unt/ml pen injector (20 sources) Insulin Analog Start: 10-26-19 End: 12-15-19 23 HUMALOG KWIKPEN INSULIN 100 unit/mL Inject 4 Units subcutaneously as directed. 0 10/25/2020 12/14/2022 Discontinued Comment on above: Inject 4 Units subcu taneously as directed. losartan potassium 50 mg oral tablet (1 source) Angiotensin 2 Receptor Josue Start: 06-02-19 End: 08-08-19 losartan (COZAAR) 50 mg tablet once daily. 0 06/02/2013 08/07/2021 Discontinued Comment on above: once daily. ondansetron 4 mg oral tablet (10 sources) Serotonin-3 Receptor Antagonist Start: 11-14-19 End: 12-15-19 take 1 tablet by mouth every eight hours as needed ondansetron (ZOFRAN) 4 mg tablet Take 1 tablet by mouth every 8 hours as needed for nausea/vomiting. 10 tablet 1 11/13/2021 12/14/2022 Discontinued Comment on above: Take 1 tablet by arlette th every 8 hours as needed for nausea/vomiting. potassium chloride 10 meq extended release oral tablet (17 sources) Start: 10-14-19 End: 12-15-19 take 1 tablet by mouth twice daily potassium chloride (K-TAB) 10 mEq tablet Take 10 mEq by mouth twice daily. 0 10/13/2021 12/14/2022 Discontinued Comment on above: Take 10 mEq by mouth twice daily. sacubitril 24 mg / valsartan 26 mg oral tablet (20 sources) Angiotensin 2 Receptor Josue Start: 09-15-19 End: 11-11-19 take 1 tablet by mouth twice daily ENTRESTO 24-26 mg tablet TAKE 1 TABLET BY MOUTH TWICE DAILY 180 tablet 3 11/11/2023 09/29/2024 Discontinued Comment on above: Take 1 tablet [...] Take 100 mg by mouth once daily. torsemide 20 mg oral tablet (20 sources) Loop Diuretic Start: 09-15-19 End: 12-15-19 take 1 tablet by mouth once daily torsemide (DEMADEX) 20 mg tablet Take 1 tablet by mouth once daily. 90 tablet 3 09/14/2021 12/14/2022 Discontinued Comment on above: Take 1 tablet by arlette th once daily. traMADol hydrochloride 50 mg oral tablet (4 sources) Opioid Agonist Start: 11-10-19 End: 06-18-19 [...] Coronary atherosclerosis; Translations: [Atherosclerotic heart disease of [place] coronary artery without angina pectoris] Onset: 1 [...] Chronic Other nutritional; endocrine; and metabolic disorders (16 sources) Obesity; Translations: [Obesity, unspecified] Onset: 2 11-14-2021 Chronic Other nutritional; endocrine; and metabolic disorders (1 source) Obese class II; Translations: [Obesity, unspecified] Chronic Other nutritional; endocrine; and metabolic disorders (1 source) Body mass index 30+ - obesity; Translations: [Body mass index (BMI) 30.0-30.9, adult] Chronic Other nutritional; endocrine; and metabolic disorders (1 source) Morbid (severe) obesity due to excess calories; Translations: [MORBID SEVERE OBES D/T EXCESS NIKITA] Onset: 2 Chronic Other nutritional; endocrine; and [...] [CONTACT W/AND (SUSP) EXPOS COVID-19] Onset: 2 Unclassified (1 source) Obesity, Class III, BMI 40-49.9 (morbid obesity) (HCC); Translations: [Obesity, Class III, BMI 40-49.9 (morbid obesity) (HCC)] Onset: 1 Past or Other Problems Problem Classification Problem Date Documented Da te Episodic/Chronic Acute myocardial infarction (6 sources) Myocardial infarction; Translations: [Non-ST elevation (NSTEMI) [...] 09-19-2021 Episodic Other aftercare (1 source) Other file system installer (current) drug therapy; Translations: [OTH ALF CURRENT DRUG THERAPY] Onset: 09-22-2021 Episodic Other aftercare (1 source) residential (current) use of antithrombotics/anti platelets; Translations: [SALES ADMINISTRATION MANAGER ANTITHROMBOT/ANTIPLA TLETS] Onset: 09-22-2021 Episodic Other aftercare (1 source) residential (current) use of aspirin; Translations: [SALES ADMINISTRATION MANAGER CURRENT USE OF ASPIRIN] Onset: 09-22-2021 Episodic Other aftercare (2 sources) residential (current) use of insulin; Translations: [SALES ADMINISTRATION MANAGER CURRENT USE OF INSULIN] Onset: 09-22-2021 Episodic [...] Test Name Value Interpretation Reference Range Facility Basic metabolic 2000 panelon 01-25-2025 Anion gap [Moles/Vol] 12 mmol/L Normal 8-15 [facility] Comment on above: Order Comment: Speci men Type: BLOOD SPECIMEN Ordering Facility: [facility] Address: [address] [place] [address] Performed By: #### 2 4331-1, 53157-2, 11553-2 #### [facility] CLIA [id number] [address] [place] [address] [place] [address] [place] Calcium [Mass/Vol] 9.5 mg/dL Normal 8.5-10.2 [facility] Comment on above: Order Comment: Speci men Type: BLOOD SPECIMEN Ordering Facility: [facility] Address: [address] [place] [address] Performed By: #### 2 4331-1, 71032-3, 02573-0 #### [facility] CLIA [id number] [address] [place] [address] [place] Chloride [Moles/Vol] 105 mmol/L Normal 98-107 [facility] Comment on above: Order Comment: Speci men Type: BLOOD SPECIMEN Ordering Facility: [facility] Address: [address] [place] [address] Performed By: #### 2 4331-1, 85914-3, 96361-1 #### [facility] CLIA [id number] [address] [place] [address] [place] CO2 [Moles/Vol] 24 mmol/L Normal 22-30 [facility] Comment on above: Order Comment: Speci men Type: BLOOD SPECIMEN Ordering Facility: [facility] Address: [address] [place] [address] Performed By: #### 2 4331-1, 78671-2, 17835-4 #### [facility] CLIA [id number] [address] [place] [address] [place] Creatinine [Mass/Vol] 0.79 mg/dL Normal 0.58-0.96 [facility] Comment on above: Order Comment: Speci men Type: BLOOD SPECIMEN Ordering Facility: [facility] Address: [address] [place] [address] Performed By: #### 2 4331-1, 49271-7, 16978-5 #### [facility] CLIA [id number] [address] [place], [place] [address] [place] eGFRcr SerPlBld CKD-EPI 2021 85 mL/min/1.73m??? Normal >=60 [facility] Comment on above: Order Comment: Felecia mcnally Type: BLOOD SPECIMEN Ordering Facility: [facility] Address: [address] [place] [address] Result Comment: Lory mated Glomerular Filtration Rate [...] reflect actual GFR. Performed By: #### 2 4331-1, 14706-2, 15634-2 #### [facility] CLIA [id number] [address] [place] [address] [place] Glucose [Mass/Vol] 169 mg/dL High 74-99 [facility] Comment on above: Order Comment: Felecia mcnally Type: BLOOD SPECIMEN Ordering Facility: [facility] Address: [address] [place] [address] Result Comment: The [place] Diabetes Association (ADA) provides guidance for cutoff [...] Standards of Medical Care in Diabetes 2016, [place] Diabetes Association. Diabetes Care. 2016.39(Suppl 1). Performed By: #### 2 4331-1, 67504-3, 28438-2 #### [facility] CLIA [id number] [address] [place] [address] [place] Potassium [Moles/Vol] 4.8 mmol/L Normal 3.7-5.1 [facility] Comment on above: Order Comment: Felecia mcnally Type: BLOOD SPECIMEN Ordering Facility: [facility] Address: [address] [place] [address] Performed By: #### 2 4331-1, 70558-0, 97058-6 #### [facility] CLIA [id number] [address] [place] [address] [place] Sodium [Moles/Vol] 141 mmol/L Normal 136-144 [facility] Comment on above: Order Comment: Speci men Type: BLOOD SPECIMEN Ordering Facility: [facility] Address: [address] [place] [address] Performed By: #### 2 4331-1, 89091-4, 19575-2 #### [facility] CLIA [id number] [address] [place] [address] [place] Urea nitrogen [Mass/Vol] 31 mg/dL High 7-21 [facility] Comment on above: Order Comment: Speci men Type: BLOOD SPECIMEN Ordering Facility: [facility] Address: [address] [place] [address] Performed By: #### 2 4331-1, 27672-4, 44539-6 #### [facility] CLIA [id number] [address] [place] [address] [place] ECHOon 01-25-2025 Echocardiography Echocardiography Report: Transthoracic Echo [facility] A17 Date of service: 01/25/2025 12:31:43 PM DIVERSITY OFFICER Ordering physician: Johanne SNIDER Exam indication: CAD H/O PCI Technologist: Bety Valle Interpreting physician: Gemma Chávez MD PATIENT: Name: ANGIE SERRA : 1965 Age: 59 years Gender: F History of hypertension, diabetes mellitus, dyslipidemia and coronary artery disease. Previous cardiovascular interventions: PCI (10/06/20) Diagnostic cath (08/11/21) Primary rhythm: sinus. Secondary rhythm: PVC. Height: 165.10 cm BSA: 1.88 m Weight: 77.25 kg BMI: 28.3 kg/m Heart rate 89 bpm Blood pressure 99/51 mmHg Technically difficult exam due to lung interference. Color Doppler was utilized to interrogate the cardiac valves assessed and spectral Doppler was utilized to determine the flow velocities and pressure gradients reported in this exam. MEASUREMENTS: Value Indexed Normal Max aortic dimension 3.2 cm Ao < 3.8 Left atrial volume 35 ml (Pretty's) 19 ml/m Dalila <= 34 LV ID (diastole) 3.3 cm (2D) 1.75 cm/m LV ID (systole) 2.2 cm (2D) 1.17 cm/m IVS, leaflet tips 1.5 cm (2D) Posterior wall thickness 1.1 cm (2D) Left ventricular mass 142 g (2D) 75 g/m LV stroke volume 44 ml (2D biplane) LV end diastolic volume 72 ml (2D biplane) 38.2 ml/m 29<=EDVi<62 LV end systolic volume 28 ml (2D biplane) 14.7 ml/m Ejection Fraction 62 % (2D biplane) EF > 54 FINDINGS: LEFT VENTRICLE The left ventricle is normal in size. There is septal left ventricular hypertrophy. Left ventricular systolic function is normal globally. Indeterminate left ventricular diastolic function due to inconsistent or technically suboptimal data. Wall Motion: All scored segments are normal. RIGHT VENTRICLE The right ventricle is normal in size. Right ventricular systolic function is normal globally. Tricuspid annular displacement is 1.7 cm. Estimated right ventricular systolic pressure is not reported due to an insufficient tricuspid regurgitation signal. Estimated right atrial pressure is 3 mmHg based on IVC assessment. LEFT ATRIUM The left atrial cavity is normal in size. RIGHT ATRIUM The right atrial cavity is normal in size (RA area = 10.1 cm ). Inferior Vena Cava: The inferior vena cava appears normal measuring 1.27 cm. The vessel decreases greater than 50 percent with inspiration. MITRAL VALVE There is mild mitral annular calcification observed posterior. There is trace mitral valve regurgitation. There is mild thickening. The pressure half time is 103 msec. The peak mitral E/A ratio is 0.63. The mitral flow deceleration time is 356 msec. TRICUSPID VALVE The tricuspid valve leaflets are structurally normal. There is trace tricuspid valve regurgitation. AORTIC VALVE There is trace aortic valve regurgitation. Tricuspid aortic valve. There is mild thickening. PULMONIC VALVE There is trace pulmonic valve regurgitation. There is no thickening. AORTA The visualized aorta is normal in size. Measurements - Sinus: 2.9 cm. Mid ascending aorta 3.2 cm. Mid arch 3.2 cm. PULMONARY ARTERIES The pulmonary arteries are normal. INTERATRIAL SEPTUM There is no evidence of intracardiac shunting as detected by Doppler. INTERVENTRICULAR SEPTUM There is no flow through the interventricular septum as detected by Doppler. PERICARDIUM There is no pericardial effusion. There is an epicardial fat pad. CONCLUSIONS: - Technically difficult exam due to lung interference. - Exam indication: CAD H/O PCI - The left ventricle is normal in size. There is septal left ventricular hypertrophy. Left ventricular systolic function is normal. EF = 62 5% (2D biplane) - The right ventricle is normal in size. Right ventricular systolic function is normal. - Estimated right ventricular systolic pressure is not reported due to an insufficient tricuspid regurgitation signal. Estimated right atrial pressure is 3 mmHg based on IVC assessment. - Exam was compared with the prior CC echocardiographic exam performed on 08/08/2021. Apical hypokinesis seen on previous is resolved, otherwise there is no significant change. * * * Final * * * [facility] [facility] : [id number] Normal [facility] EXERCISE STRESS ECG METABOLI C (WITHOUT IMAGING)on 01-25-2025 EXERCISE STRESS ECG METABOLIC (WITHOUT IMAGING) Stress ECG Report: Exercise Stress ECG Metabolic (without Imaging) [facility] TOMI-2 Date of service: 01/25/2025 10:22:41 AM DIVERSITY OFFICER Ordering physician: Johanne SNIDER public affairs specialist: Precious [employer] T[employer] Bagger: Wendy Mitchell Interpreting physician: Efe Snider MD Patient name: ANGIE SERRA Age: 59 years Gender: F Height: 165.10 cm BSA: 1.86 m Weight: 75.75 kg BMI: 27.8 kg/m Indication: Fatigue, Chronic systolic (congestive) heart failure and History of percutaneous coronary angioplasty Metabolic Exercise Test Interpretation: - EXERCISE RESPONSE: Mildly abnormal exercise power (pWork-rate). Maximal aerobic effort (pRER). Moderately abnormal aerobic capacity (pVO2). Abnormal aerobic efficiency (VO2/WR slope). Abnormal circulatory limitation pattern. - CARDIOVASCULAR RESPONSE: Normal stroke volume response (pVO2/HR). Blunted heart rate response (pHR). Abnormal chronotropic index (CI). Normal BP response (pBP). Arrhythmias: Unifocal PVCs. ST segment and T-wave changes: No ST changes. - PULMONARY RESPONSE: There was no clinically significant oxygen desaturation during exercise (SpO2). Normal ventilatory reserve (pVE). Normal ventilatory pattern. Mildly abnormal ventilatory efficiency (VE/VCO2 slope). Mild exercise oscillatory ventilation (EOV). - CONCLUSION: Moderately abnormal functional capacity. Moderate chronotropic incompetence. Previous cardiovascular interventions: PCI (10/06/20) Diagnostic cath (08/11/21) Medications: Last Used COREG 3 Hours ENTRESTO 3 Hours Resting ECG: Normal Sinus Rhythm Exercise Protocol: cycle Cycle Exercise Table: +------+----+-----+--- -------+--+---+---+--- -+---+ Stage RPM LABOY Time (min) HR SYS RUSLAN RPE SOB +------+----+-----+--- -------+--+---+---+--- -+---+ 1 62.0 0.0 2.0 90 124 72 6.0 0.0 +------+----+-----+--- -------+--+---+---+--- -+---+ 2 61.0 20.0 4.0 92 140 72 9.0 1.0 +------+----+-----+--- -------+--+---+---+--- -+---+ 3 61.0 40.0 6.0 97 156 74 12.0 2.0 +------+----+-----+--- -------+--+---+---+--- -+---+ +-----+----+-----+---- ------+---+---+---+--- -+---+ RPM LABOY Time (min) HR SYS RUSLAN RPE SOB +-----+----+-----+---- ------+---+---+---+--- -+---+ Final 54.0 58.0 7.90 100 168 78 15.0 4.0 +-----+----+-----+---- ------+---+---+---+--- -+---+ +------+ ---+ Stage Arrhythmias +------+ ---+ 3 Rare PVC (<3/min) +------+ ---+ +-----+ --+ Arrhythmias +-----+ --+ Final Rare PVC (<3/min) +-----+ --+ Recovery Table: +------+ +--+ ---+---+ Stage Time (min) HR SYS RUSLAN +------+ +--+ ---+---+ 1 1.0 93 152 74 +------+ +--+ ---+---+ 2 2.0 93 134 70 +------+ +--+ ---+---+ 3 3.0 92 110 66 +------+ +--+ ---+---+ 4 5.0 98 102 64 +------+ +--+ ---+---+ +-----+ ----+ Stage Arrhythmias +-----+ ----+ 3 Occas PVC (3-7/min) +-----+ ----+ 4 FREQ PVC (>7/min) +-----+ ----+ Stress Observations: Metabolic stress lab #: 1 Study protocol type: cycle Cycle work-rate increment: 10 Laboy/min Total exercise duration: 7 min 54 sec [8-12 min] Loaded exercise duration: 5 min 54 sec [8-12 min] Peak RPE: 15.0 [>18; based on 6-20 scale] Peak dyspnea: 4.0 [<4; based on 0-10 scale] Reason for test termination: general fatigue Symptoms during test: No symptoms provoked during stress Resting HR: 84 bpm Peak HR: 100 bpm (63% MPHR) Resting BP: 108 / 68 mmHg Peak BP: 168 / 78 mmHg Rate Pressure Product (RPP): 67942 Metabolic Exercise Data Variable: Observed value [Expected Range] Peak RER: 1.10 [1.1 - 1.50] Peak work-rate: 67.0% [>85% pred peak [place]] Peak work-rate: 58.0 [place] Peak VO2: 61.6% [>85% pred peak VO2] Peak VO2: 11.3 ml/kg/min METS (VO2/3.5): 3.23 Rest VO2: 4.0 ml/kg/min [2-5 ml/kg/min] VO2 at VAT: 39.3% [40-75% pred peak VO2] VO2 at VAT: 7.4 ml/kg/min CI: 0.37 [0.80-1.30] Peak VO2/HR: 97.0% [>85% pred peak VO2/HR] VO2/WR slope: 7.80 ml/min/Lab[place] [8.5-12.5 ml/min/Laboy] Peak SpO2: 97.0% [>95%] Peak VE: 38.0% [<85% pred peak VE] Peak VE: 34.2 L/min Peak RR: 39 breaths/min [<60 breaths/min] Peak VT: 0.87 L [1.5-3.0 L] Peak PETCO2: 32 mmHg [35-41 mmHg] VE/VCO2 slope: 32 [<30] EOV: Mild [Absent] (VE/VCO2 slope)/pVO2: 2.84 [< 2.7 (ml/kg/min)-1] HGI: 0.9 [>1.06 bpm/mmHg] Circulatory Power: 1898.40 [>3047 mmHg*(ml/min/kg)] Ventilatory Power: 5.24 [>5 mmHg] OUES: 868.10 [>1752.70] Peak OUES: 0.56 [>= 0.73] Relevant references: - Aura KE, Luigi WW, Rhiannon DY and Stephan S. Kallie & Camilo's: Principles of Exercise Testing and Interpretation: Including Pathophysiology and Clinical Applications: Cullen Paul [employer] Ruby; 2020. - Octavio U, Casper PG, Donny VALDEZ, [place] (more content not included)... Normal [facility] Lipid 1996 panelon 5 Cholesterol [Mass/Vol] 90 mg/dL Normal <200 [facility] Comment on above: Order Comment: Speci men Type: BLOOD SPECIMEN Ordering Facility: [facility] Address: [address] [place] [address] Result Comment: <200 mg/dL, Desirable 200-239 mg/dL, Borderline high >239 mg/dL, High Performed By: #### 2 4331-1, 39265-4, 95712-7 #### [facility] CLIA [id number] [address] [place] [address] [place] [address] [place] Cholesterol in HDL [Mass/Vol] 47 mg/dL Normal >39 [facility] Comment on above: Order Comment: Felecia uli Type: BLOOD SPECIMEN Ordering Facility: [facility] Address: [address] [place] [address] Result Comment: 40-5 9 mg/dL, Acceptable >59 mg/dL, High: Negative risk factor for coronary heart disease <40 mg/dL, Low: Positive risk factor for coronary heart disease Performed By: #### 2 4331-1, 63374-0, 00795-6 #### [facility] CLIA [id number] [address] [place] [address] [place] [facility] Cholesterol in LDL [Mass/Vol] 22 mg/dL Normal <100 [facility] Comment on above: Order Comment: Felecia uli Type: BLOOD SPECIMEN Ordering Facility: [facility] Address: [address] [place] [address] Result Comment: <100 mg/dL, Optimal 100-129 mg/dL, Near optimal/above optimal 130-159 mg/dL, Borderline high 160-189 mg/dL, High >189 mg/dL, Very high Secondary prevention optimal LDL Cholesterol levels are recommended to be <70 mg/dL LDL cholesterol is calculated using the Coates-NIH equation. Performed By: #### 2 4331-1, 19101-7, #### [facility] CLIA [id number] [address] [place] [address] [place] Cholesterol in LDL/Cholesterol in HDL [Mass ratio] 0.47 {ratio} Normal <2.54 [facility] Comment on above: Order Comment: Felecia mcnally Type: BLOOD SPECIMEN Ordering Facility: [facility] Address: [address] [place] [address] Result Comment: Refiliana bentley: 1. National Cholesterol Education Program ATP III Guideline At-A-Glance Quick Desk Reference: National Heart, Lung, and Blood [place]. National Institutes of Health. 2001: NIH Publication No. 01-3305. 2. An International Atherosclerosis Society position paper: global recommendations for the management of dyslipidemia: executive summary, Atherosclerosis. 2014: 232(2):410-413. Performed By: #### 2 4331-1, 88443-3, 82514-7 #### [facility] CLIA [id number] [address] [place] [address] [place] Cholesterol in VLDL [Mass/Vol] 15 mg/dL Normal <30 [facility] Comment on above: Order Comment: Speci men Type: BLOOD SPECIMEN Ordering Facility: [facility] Address: [address] [place] [address] Performed By: #### 2 4331-1, 19122-8, 86750-8 #### [facility] CLIA [id number] [address] [place] [address] [place] Cholesterol non HDL [Mass/Vol] 43 mg/dL Normal <130 [facility] Comment on above: Order Comment: Speci men Type: BLOOD SPECIMEN Ordering Facility: [facility] Address: [address] [place] [address] Result Comment: <130 mg/dL, Optimal 130-159 mg/dL, Near optimal/above optimal 160-189 mg/dL, Borderline high 190-219 mg/dL, High >219 mg/dL, Very high Secondary prevention optimal non HDL Cholesterol levels are recommended to be <100 mg/dL Performed By: #### 2 4331-1, 27224-1, 49633-6 #### [facility] CLIA [id number] [address] [place] [address] [place] Cholesterol.total/Cho lesterol in HDL [Mass ratio] 1.91 {ratio} Normal <5.10 [facility] Comment on above: Order Comment: Speci men Type: BLOOD SPECIMEN Ordering Facility: [facility] Address: [address] [place], [place] [id number] Performed By: #### 2 4331-1, 04719-8, 37195-8 #### [facility] CLIA [id number] [address] [place], [place] [address] [place] FASTING TIME 12 hrs Normal [facility] Comment on above: Order Comment: Speci men Type: BLOOD SPECIMEN Ordering Facility: [facility] Address: [address] [place] [address] Result Comment: 2 Performed By: #### 2 4331-1, 30477-9, 63464-2 #### [facility] CLIA [id number] [address] [place] [address] [place] Triglyceride [Mass/Vol] 117 mg/dL Normal <150 [facility] Comment on above: Order Comment: Speci men Type: BLOOD SPECIMEN Ordering Facility: [facility] Address: [address] [place] [address] Result Comment: <150 mg/dL, Normal 150-199 mg/dL, Borderline high 200-499 mg/dL, High >499 mg/dL, Very high Performed By: #### 2 4331-1, 54262-9, 55495-7 #### [facility] CLIA [id number] [address] [place] [address] [place] NT-proBNP [facility] 01-25 Natriuretic peptide.B prohormone N-Terminal [Mass/Vol] 141 pg/mL High <125 [facility] Comment on above: Order Comment: Speci men Type: BLOOD SPECIMEN Ordering Facility: [facility] Address: [address] [place] [address] Performed By: #### 2 4331-1, 32837-9, #### [facility] CLIA [id number] [address] [place] [address] [place] INSULINon 12-16-2021 Insulin 4.7 uIU/mL Normal 2.6-24.9 [facility] Comment on above: Performed By: #### C VDTB #### [facility] [address] [place] [address] Dr. Argelia Baird VIT D 25-OH LABCORPon 2021 Vitamin D, 25-Hydroxy 30.5 ng/mL Normal 30.0-100.0 [facility] Comment on above: Result Comment: Erum min D deficiency has been defined by the [place] of Medicine and an Endocrine Society practice guideline as a level of serum 25-OH vitamin D less than 20 ng/mL (1,2). The Endocrine Society went on to further define vitamin D insufficiency as a level between 21 and 29 ng/mL (2). 1. IOM ([place] of Medicine). 2010. Dietary reference intakes for calcium and D. Renae [place]: The National Academies Press. 2. Maicol MF, Kamila NC, Nancie JAMES, et al. Evaluation, treatment, and prevention of vitamin D deficiency: an Endocrine Society clinical practice guideline. JCEM. 2010; 96(7):1911-30. Performed By: #### C MREP #### [facility] [address] [place] [address] Dr. Argelia Baird CBC AUTO DIFFon 12-15-2021 BASO # 0.0 103/ul Normal 0.0-0.1 [facility] Comment on above: Performed By: #### B DERMATOLOGICAL SURGEON, CMP #### [facility] [address] [place] [address] Dr. Argelia Baird Basophils/100 WBC (Bld) 0.5 % Normal 0.2-2.0 [facility] Comment on above: Performed By: #### B DERMATOLOGICAL SURGEON, CMP #### [facility] [address] [place] [address] Dr. Argelia Baird EO # 0.3 103/ul Normal 0.0-0.7 [facility] Comment on above: Performed By: #### B DERMATOLOGICAL SURGEON, CMP #### [facility] [address] [place] [address] Dr. Argelia Baird Eosinophils/100 WBC (Bld) 5.0 % Normal 0.9-7.0 [facility] Comment on above: Performed By: #### B DERMATOLOGICAL SURGEON, CMP #### [facility] [address] [place] [address] Dr. Argelia Baird Erythrocyte distribution width (RBC) [Ratio] 20.3 % Critically high 11.0-15.0 [facility] Comment on above: Performed By: #### B DERMATOLOGICAL SURGEON, CMP #### [facility] [address] [place] [address] Dr. Argelia Baird Hematocrit (Bld) [Volume fraction] 40.4 % Normal 36.0-48.0 [facility] Comment on above: Performed By: #### B DERMATOLOGICAL SURGEON, CMP #### [facility] [address] [place] [address] Dr. Argelia Baird Hemoglobin (Bld) [Mass/Vol] 13.0 g/dL Normal 12.0-16.0 [facility] Comment on above: Performed By: #### B DERMATOLOGICAL SURGEON, CMP #### [facility] [address] [place] [address] Dr. Argelia Baird IG # 0.02 10e3/ul Normal 0.00-0.03 [facility] Comment on above: Performed By: #### B DERMATOLOGICAL SURGEON, CMP #### [facility] [address] [place] [address] Dr. Argelia Baird IG % 0.4 % Normal 0.0-0.5 [facility] Comment on above: Performed By: #### B DERMATOLOGICAL SURGEON, CMP #### [facility] [address] [place] [address] Dr. Argelia Baird LYMPH # 1.3 103/ul Normal 1.2-3.8 [facility] Comment on above: Performed By: #### B DERMATOLOGICAL SURGEON, CMP #### [facility] [address] [place] [address] Dr. Argelia Baird Lymphocytes/100 WBC (Bld) 23.6 % Normal 20.5-60.0 [facility] Comment on above: Performed By: #### B DERMATOLOGICAL SURGEON, CMP #### [facility] [address] [place] [address] Dr. Argelia Baird MANUAL DIFF REQ NO Normal [facility] Comment on above: Performed By: #### B DERMATOLOGICAL SURGEON, CMP #### [facility] [address] [place] [address] Dr. Argelia Baird MCH (RBC) [Entitic mass] 29.0 pg Normal 26.7-34.0 [facility] Comment on above: Performed By: #### B DERMATOLOGICAL SURGEON, CMP #### [facility] [address] [place] [address] Dr. Argelia Baird MCHC (RBC) [Mass/Vol] 32.2 g/dL Normal 29.9-35.2 [facility] Comment on above: Performed By: #### B DERMATOLOGICAL SURGEON, CMP #### [facility] [address] [place] [address] Dr. Argelia Baird MCV (RBC) [Entitic vol] 90.2 fL Normal 81.0-99.0 [facility] Comment on above: Performed By: #### B DERMATOLOGICAL SURGEON, CMP #### [facility] [address] [place] [address] Dr. Argelia Baird MONO # 0.9 103/ul Critically high 0.3-0.8 [facility] Comment on above: Performed By: #### B DERMATOLOGICAL SURGEON, CMP #### [facility] [address] [place] [address] Dr. Argelia Baird Monocytes/100 WBC (Bld) 16.1 % Critically high 1.7-12.0 [facility] Comment on above: Performed By: #### B DERMATOLOGICAL SURGEON, CMP #### [facility] [address] [place] [address] Dr. Argelia Baird NEUT # 3.1 103/ul Normal 1.4-6.5 [facility] Comment on above: Performed By: #### B DERMATOLOGICAL SURGEON, CMP #### [facility] [address] [place] [address] Dr. Argelia Baird Neutrophils/100 WBC (Bld) 54.4 % Normal 43.0-75.0 [facility] Comment on above: Performed By: #### B DERMATOLOGICAL SURGEON, CMP #### [facility] [address] [place] [address] Dr. Argelia Baird Platelet mean volume (Bld) [Entitic vol] 9.7 fL Normal 9.5-13.5 [facility] Comment on above: Performed By: #### B DERMATOLOGICAL SURGEON, CMP #### [facility] [address] [place] [address] Dr. Argelia Baird PLT 283 103/ul Normal 150-450 [facility] Comment on above: Performed By: #### B DERMATOLOGICAL SURGEON, CMP #### [facility] [address] [address] [address] Argelia Baird RBC 4.48 106/ul Normal 4.20-5.40 [facility] Comment on above: Performed By: #### B DERMATOLOGICAL SURGEON, CMP #### [facility] [address] [place] [address] Dr. Argelia Baird WBC 5.6 103/ul Normal 4.0-11.0 [facility] Comment on above: Performed By: #### B DERMATOLOGICAL SURGEON, CMP #### [facility] [address] [place] [address] Dr. Argelia Baird FREE THYROXINE INDEX T7on FTI 2.48 Normal 1.30-4.50 [facility] Comment on above: Performed By: #### C VDTBH #### [facility] [address] [place] [address] Dr. Argelia Baird T3U 33.0 % Normal 30.0-39.0 [facility] Comment on above: Performed By: #### C VDTBH #### [facility] [address] [place] [address] Dr. Argelia Baird T4 [Mass/Vol] 7.50 ug/dL Normal 4.80-13.90 [facility] Comment on above: Performed By: #### C VDTBH #### [facility] [address] [place] [address] Dr. Argelia Baird GLYCOHEMOGLOBIN A1Con 2021 ADA RECOMMENDATION SEE BELOW Normal [facility] Comment on above: Result Comment: ADA RECOMMENDED LIMIT 4.0 - 6.0 ADA THERAPEUTIC TARGET < 7.0 ACTION SUGGESTED > 7.0 Performed By: #### A 1C #### [facility] [address] [place] [address] Dr. Argelia Baird Glucose [Mass/Vol] 148 mg/dL Normal [facility] Comment on above: Performed By: #### A 1C #### [facility] [address] [place] [address] Dr. Argelia Baird HbA1c (Bld) [Mass fraction] 6.8 % Critically high 4.5-6.2 [facility] Comment on above: Performed By: #### A 1C #### [facility] [address] [address] [address] Argelia Baird IRONon 12-15-2021 Iron [Mass/Vol] 51.0 ug/dL Normal 50.0-170.0 [facility] Comment on above: Performed By: #### C VDTBH #### [facility] [address] [address] [address] Argelia Baird LIPID PROFILEon 12-15-2021 CHOL-HDL RATIO NORM SEE BELOW Normal [facility] Comment on above: Result Comment: 3.3 - 4.4 LOW RISK 4.4 - 7.1 AVERAGE RISK 7.1 - 11.0 MODERATE RISK >11.0 HIGH RISK Performed By: #### C VDTBH #### [facility] [address] [address] [address] Argelia Baird Cholesterol [Mass/Vol] 83 mg/dL Normal <=200 [facility] Comment on above: Performed By: #### C VDTBH #### [facility] [address] [address] [address] Argelia Baird Cholesterol in HDL [Mass/Vol] 34 mg/dL Critically low 40-60 [facility] Comment on above: Performed By: #### C VDTBH #### [facility] [address] [address] [address] Argelia Baird Cholesterol in LDL [Mass/Vol] 15.8 mg/dL Normal [facility] Comment on above: Performed By: #### C VDTBH #### [facility] [address] [address] [address] Argelia Baird Cholesterol.total/Cho lesterol in HDL [Mass ratio] 2.4 {ratio} Normal [facility] Comment on above: Performed By: #### C VDTBH #### [facility] [address] [place] [address] Dr. Argelia Baird HDL NORMAL > or = 60 mg/dl - LO W CARDIOVASCULAR RISK <40 mg/dl - HIGH CARDIOVASCULAR RISK Normal [facility] Comment on above: Performed By: #### C VDTBH #### [facility] [address] [place] [address] Dr. Argelia Baird LDL CALC NORMAL SEE BELOW Normal [facility] Comment on above: Result Comment: <100 mg/dl OPTIMAL 100 - 129 mg/dl NEAR OR ABOVE OPTIMAL 130 - 159 mg/dl BORDERLINE HIGH 160 - 189 mg/dl HIGH >190 mg/dl VERY HIGH Performed By: #### C VDTBH #### [facility] [address] [place] [address] Dr. Argelia Baird Triglyceride [Mass/Vol] 166 mg/dL Critically high <=150 [facility] Comment on above: Performed By: #### C VDTBH #### [facility] [address] [place] [address] Dr. Argelia Baird VLDL CALC 33.2 mg/dL Normal [facility] Comment on above: Performed By: #### C VDTBH #### [facility] [address] [place] [address] Dr. Argelia Baird PROF 14(COMP METB)on 022 Albumin [Mass/Vol] 3.0 g/dL Critically low 3.4-5.0 [facility] Comment on above: Performed By: #### C VDTBH #### [facility] [address] [place] [address] Dr. Argelia Baird Albumin/Globulin [Mass ratio] 1.0 {ratio} Normal [facility] Comment on above: Performed By: #### C VDTBH #### [facility] [address] [place] [address] Dr. Argelia Baird ALP [Catalytic activity/Vol] 100 U/L Normal 46-116 [facility] Comment on above: Performed By: #### C VDTBH #### [facility] [address] [place] [address] Dr. Argelia Baird ALT [Catalytic activity/Vol] 42 U/L Normal 14-59 [facility] Comment on above: Performed By: #### C VDTBH #### [facility] [address] [place] [address] Dr. Argelia Baird Anion gap [Moles/Vol] 14.1 mmol/L Normal [facility] Comment on above: Performed By: #### C VDTBH #### [facility] [address] [place] [address] Dr. Argelia Baird AST [Catalytic activity/Vol] 36 U/L Normal 15-37 [facility] Comment on above: Performed By: #### C VDTBH #### [facility] [address] [place] [address] Dr. Argelia Baird Bilirubin [Mass/Vol] 0.4 mg/dL Normal 0.2-1.0 [facility] Comment on above: Performed By: #### C VDTBH #### [facility] [address] [place] [address] Dr. Argelia Baird Calcium [Mass/Vol] 8.1 mg/dL Critically low 8.5-10.1 [facility] Comment on above: Performed By: #### C VDTBH #### [facility] [address] [place] [address] Dr. Argelia Baird Chloride [Moles/Vol] 111 mmol/L Critically high 98-107 [facility] Comment on above: Performed By: #### C VDTBH #### [facility] [address] [place] [address] Dr. Argelia Baird CO2 [Moles/Vol] 24.4 mmol/L Normal 21.0-32.0 [facility] Comment on above: Performed By: #### C VDTBH #### [facility] [address] [place] [address] Dr. Argelia Baird Creatinine [Mass/Vol] 0.75 mg/dL Normal 0.55-1.02 [facility] Comment on above: Performed By: #### C VDTBH #### [facility] [address] [place] [address] Dr. Argelia Baird EGFR-AF CHADIAN >60 Normal >=60 [facility] Comment on above: Performed By: #### C VDTBH #### [facility] [address] [place] [address] Dr. Argelia Baird EGFR-NON AF CHADIAN >60 Normal >=60 [facility] Comment on above: Performed By: #### C VDTBH #### [facility] [address] [place] [address] Dr. Argelia Baird Globulin (S) [Mass/Vol] 3.0 g/dL Normal [facility] Comment on above: Performed By: #### C VDTBH #### [facility] [address] [place] [address] Dr. Argelia Baird Glucose [Mass/Vol] 128 mg/dL Critically high 74-106 [facility] Comment on above: Performed By: #### C VDTBH #### [facility] [address] [place] [address] Dr. Argelia Baird Potassium [Moles/Vol] 3.5 mmol/L Normal 3.5-5.1 [facility] Comment on above: Performed By: #### C VDTBH #### [facility] [address] [place] [address] Dr. rAgelia Baird Protein [Mass/Vol] 6.0 g/dL Critically low 6.4-8.2 [facility] Comment on above: Performed By: #### C VDTBH #### [facility] [address] [place] [address] Dr. Argelia Baird Sodium [Moles/Vol] 146 mmol/L Critically high 136-145 [facility] Comment on above: Performed By: #### C VDTBH #### [facility] [address] [place] [address] Dr. Argelia Baird Urea nitrogen [Mass/Vol] 16.0 mg/dL Normal 7.0-18.0 [facility] Comment on above: Performed By: #### C VDTBH #### [facility] [address] [place] [address] Dr. Argelia Baird Urea nitrogen/Creatinine [Mass ratio] 21.3 mg/mg Normal [facility] Comment on above: Performed By: #### C VDTBH #### [facility] [address] [place] [address] Dr. Argelia Baird TSHon 07-29-2022 TSH 1.803 uIU/mL Normal 0.358-3.740 [facility] Comment on above: Performed By: #### C VDTBH #### [facility] [address] [place] [address] Dr. Argelia Baird VIT B12 AND FOLATEon 022 Cobalamin (Vitamin B12) [Mass/Vol] 834.0 pg/mL Normal 193.0-986.0 [facility] Comment on above: Performed By: #### C VDTBH #### [facility] [address] [place] [address] Dr. Argelia Baird FOLATE 20.80 ng/mL Normal 8.60-58.90 [facility] Comment on above: Performed By: #### C VDTBH #### [facility] [address] [place] [address] Dr. Argelia Baird 25(OH)D3 SerPl-ncon 2021 25-hydroxyvitamin D3 [Mass/Vol] 40.1 ng/mL Normal 31.0-80.0 [facility] Comment on above: Order Comment: Speci men Type: BLOOD SPECIMEN Ordering Facility: [facility] Address: [address] [place] [address] Result Comment: Clas sification of 25 [place] Vitamin D status: Deficiency/Insufficiency: < or = 30 ng/ml. Sufficiency/Optimal Levels: 31-80 ng/mL Toxicity: > 100 ng/mL. Test performed by chemiluminescent immunoassay. Performed By: #### 1 989-3 #### [facility] CLIA [id number] [address] [place] [address] [place] CBC W Auto Differential pane l (Bld)on 11-13-2021 Basophils (Bld) [#/Vol] 0.04 10*3/uL Normal <0.11 [facility] Comment on above: Order Comment: Speci men Type: BLOOD SPECIMEN Ordering Facility: [facility] Address: [address] [place] [address] Performed By: #### 5 7021-8 #### [facility] CLIA [id number] [address] [place] [address] [place] Basophils/100 WBC (Bld) 0.5 % Normal [facility] Comment on above: Order Comment: Speci men Type: BLOOD SPECIMEN Ordering Facility: [facility] Address: [address] [place] [address] Performed By: #### 5 7021-8 #### [facility] CLIA [id number] [address] [place] [address] [place] [facility] Differential cell count method Nom (Bld) Auto Normal [facility] Comment on above: Order Comment: Speci men Type: BLOOD SPECIMEN Ordering Facility: [facility] Address: [address] [place] [address] Performed By: #### 5 7021-8 #### [facility] CLIA [id number] [address] [place] [address] [place] Eosinophils (Bld) [#/Vol] 0.31 10*3/uL Normal <0.46 [facility] Comment on above: Order Comment: Speci men Type: BLOOD SPECIMEN Ordering Facility: [facility] Address: [address] [place] [address] Performed By: #### 5 7021-8 #### [facility] CLIA [id number] [address] [place] [address] [place] Eosinophils/100 WBC (Bld) 3.8 % [facility] Comment on above: Order Comment: Speci men Type: BLOOD SPECIMEN Ordering Facility: [facility] Address: [address] [place] [address] Performed By: #### 5 7021-8 #### [facility] CLIA [id number] [address] [place] [address] [place] Erythrocyte distribution width (RBC) [Ratio] 15.2 % High 11.5-15.0 [facility] Comment on above: Order Comment: Speci men Type: BLOOD SPECIMEN Ordering Facility: [facility] Address: [address] [place] [address] Performed By: #### 5 7021-8 #### [facility] CLIA [id number] [address] [place] [address] Hematocrit (Bld) [Volume fraction] 43.1 % Normal 36.0-46.0 [facility] Comment on above: Order Comment: Speci men Type: BLOOD SPECIMEN Ordering Facility: [facility] Address: [address] [place] [address] Performed By: #### 5 7021-8 #### [facility] IA [id number] [address] [place] [address] Hemoglobin (Bld) [Mass/Vol] 13.6 g/dL Normal 11.5-15.5 [facility] Comment on above: Order Comment: Speci men Type: BLOOD SPECIMEN Ordering Facility: [facility] Address: [address] [place] [address] Performed By: #### 5 7021-8 #### [facility] IA [id number] [address] [place] [address] IMMATURE GRAN % 0.4 % Normal [facility] Comment on above: Order Comment: Speci men Type: BLOOD SPECIMEN Ordering Facility: [facility] Address: [address] [place] [address] Performed By: #### 5 7021-8 #### [facility] IA [id number] [address] [place] [address] IMMATURE GRAN ABS 0.03 k/uL Normal <0.10 [facility] Comment on above: Order Comment: Speci men Type: BLOOD SPECIMEN Ordering Facility: [facility] Address: [address] [place] [address] Performed By: #### 5 7021-8 #### [facility] CLIA [id number] [address] [place] [address] [place] Lymphocytes (Bld) [#/Vol] 1.11 10*3/uL Normal 1.00-4.00 [facility] Comment on above: Order Comment: Speci men Type: BLOOD SPECIMEN Ordering Facility: [facility] Address: [address] [place] [address] Performed By: #### 5 7021-8 #### [facility] CLIA [id number] [address] [place] [address] [place] Lymphocytes/100 WBC (Bld) 13.7 % Normal [facility] Comment on above: Order Comment: Speci men Type: BLOOD SPECIMEN Ordering Facility: [facility] Address: [address] [place] [address] Performed By: #### 5 7021-8 #### [facility] CLIA [id number] [address] [place] [address] [place] MCH (RBC) [Entitic mass] 28.4 pg Normal 26.0-34.0 [facility] Comment on above: Order Comment: Speci men Type: BLOOD SPECIMEN Ordering Facility: [facility] Address: [address] [place] [address] Performed By: #### 5 7021-8 #### [facility] IA [id number] [address] [place] [address] [place] MCHC (RBC) [Mass/Vol] 31.6 g/dL Normal 30.5-36.0 [facility] Comment on above: Order Comment: Speci men Type: BLOOD SPECIMEN Ordering Facility: [facility] Address: [address] [place] [address] Performed By: #### 5 7021-8 #### [facility] CLIA [id number] [address] [place] [address] MCV (RBC) [Entitic vol] 90.0 fL Normal 80.0-100.0 [facility] Comment on above: Order Comment: Speci men Type: BLOOD SPECIMEN Ordering Facility: [facility] Address: [address] Performed By: #### 5 7021-8 #### [facility] CLIA [id number] [facility] [place] [address] [place] Monocytes (Bld) [#/Vol] 0.63 10*3/uL Normal <0.87 [facility] Comment on above: Order Comment: Speci men Type: BLOOD SPECIMEN Ordering Facility: [facility] Address: [address] [place], [place] [address] Performed By: #### 5 7021-8 #### [facility] CLIA [id number] [facility] [place] [address] [place] Monocytes/100 WBC (Bld) 7.7 % Normal [facility] Comment on above: Order Comment: Speci men Type: BLOOD SPECIMEN Ordering Facility: [facility] Address: [address] [place], [place] [address] Performed By: #### 5 7021-8 #### [facility] CLIA [id number] [address] [place], [place] [address] [place] Neutrophils (Bld) [#/Vol] 6.01 10*3/uL Normal 1.45-7.50 [facility] Comment on above: Order Comment: Speci men Type: BLOOD SPECIMEN Ordering Facility: [facility] Address: [address] [place], [place] [address] Performed By: #### 5 7021-8 #### [facility] CLIA [id number] [address] [place], [place] [address] [place] Neutrophils/100 WBC (Bld) 73.9 % Normal [facility] Comment on above: Order Comment: Speci men Type: BLOOD SPECIMEN Ordering Facility: [facility] Address: [address] [place], [place] [address] Performed By: #### 5 7021-8 #### [facility] CLIA [id number] [address] [place], [place] [address] [place] Nucleated RBC (Bld) [#/Vol] 10*3/uL Normal <0.01 [facility] Comment on above: Order Comment: Speci men Type: BLOOD SPECIMEN Ordering Facility: [facility] Address: [address] [place] [address] Performed By: #### 5 7021-8 #### [facility] CLIA [id number] [address] [place] [address] [place] Nucleated RBC/100 WBC (Bld) [Ratio] 0.0 /100 WBC Normal [facility] Comment on above: Order Comment: Speci men Type: BLOOD SPECIMEN Ordering Facility: [facility] Address: [address] [place] [address] Performed By: #### 5 7021-8 #### [facility] CLIA [id number] [address] [place] [address] [place] Platelet mean volume (Bld) [Entitic vol] 8.6 fL Low 9.0-12.7 [facility] Comment on above: Order Comment: Speci men Type: BLOOD SPECIMEN Ordering Facility: [facility] Address: [address] [place], [place] [address] Performed By: #### 5 7021-8 #### [facility] CLIA [id number] [address] [place] [address] [place] Platelets (Bld) [#/Vol] 320 10*3/uL Normal 150-400 [facility] Comment on above: Order Comment: Speci men Type: BLOOD SPECIMEN Ordering Facility: [facility] Address: [address] [place], [place] [address] Performed By: #### 5 7021-8 #### [facility] CLIA [id number] [address] [place] [address] [place] RBC (Bld) [#/Vol] 4.79 10*6/uL Normal 3.90-5.20 [facility] Comment on above: Order Comment: Speci men Type: BLOOD SPECIMEN Ordering Facility: [facility] Address: [address] [place] [address] Performed By: #### 5 7021-8 #### [facility] CLIA [id number] [address] [place] [address] WBC (Bld) [#/Vol] 8.13 10*3/uL Normal 3.70-11.00 [facility] Comment on above: Order Comment: Speci men Type: BLOOD SPECIMEN Ordering Facility: [facility] Address: [address] [place] [address] Performed By: #### 5 7021-8 #### [facility] CLIA [id number] [facility] [address] [place] BLOOD TYPEon 022 ABO O Normal [facility] Comment on above: Order Comment: Speci men Type: BLOOD SPECIMEN Ordering Facility: [facility] Address: [address] [place] [address] Performed By: #### C ONABO #### [facility] CLIA [id number] [address] [place] Rh Nom (Bld) Positive [facility] Comment on above: Order Comment: Speci men Type: BLOOD SPECIMEN Ordering Facility: [facility] Address: [address] [place] [address] Performed By: #### C ONABO #### [facility] CLIA [id number] [address] [place] [address] [place] Comprehensive metabolic 2000 panelon 11-13-2021 Albumin [Mass/Vol] 4.5 g/dL Normal 3.9-4.9 [facility] Comment on above: Order Comment: Speci men Type: BLOOD SPECIMEN Ordering Facility: [facility] Address: [address] [place] [address] Performed By: #### 2 4323-8 #### [facility] CLIA [id number] [address] [place], [place] [address] [place] ALP [Catalytic activity/Vol] 94 U/L Normal 34-123 [facility] Comment on above: Order Comment: Speci men Type: BLOOD SPECIMEN Ordering Facility: [facility] Address: [address] [place] [address] Performed By: #### 2 4323-8 #### [facility] CLIA [id number] [address] [place], [place] [address] [place] [facility] ALT [Catalytic activity/Vol] 23 U/L Normal 7-38 [facility] Comment on above: Order Comment: Speci men Type: BLOOD SPECIMEN Ordering Facility: [facility] Address: [address] [place] [address] Performed By: #### 2 4323-8 #### [facility] CLIA [id number] [address] [place] [address] [place] Anion gap [Moles/Vol] 13 mmol/L Normal 9-18 [facility] Comment on above: Order Comment: Speci men Type: BLOOD SPECIMEN Ordering Facility: [facility] Address: [address] [place] [address] Performed By: #### 2 4323-8 #### [facility] CLIA [id number] [address] [place] [address] AST [Catalytic activity/Vol] 19 U/L Normal 13-35 [facility] Comment on above: Order Comment: Speci men Type: BLOOD SPECIMEN Ordering Facility: [facility] Address: [address] [place] [address] Performed By: #### 2 4323-8 #### [facility] CLIA [id number] [facility] [place] [address] [place] Bilirubin [Mass/Vol] 0.8 mg/dL Normal 0.2-1.3 [facility] Comment on above: Order Comment: Speci men Type: BLOOD SPECIMEN Ordering Facility: [facility] Address: [address] Performed By: #### 2 4323-8 #### [facility] CLIA [id number] [address] [place] [address] [place] Calcium [Mass/Vol] 9.5 mg/dL Normal 8.5-10.2 [facility] Comment on above: Order Comment: Speci men Type: BLOOD SPECIMEN Ordering Facility: [facility] Address: [address] [place], [place] [address] Performed By: #### 2 4323-8 #### [facility] CLIA [id number] [address] [place], [place] [address] [place] Chloride [Moles/Vol] 101 mmol/L Normal 97-105 [facility] Comment on above: Order Comment: Speci men Type: BLOOD SPECIMEN Ordering Facility: [facility] Address: [address] [place], [place] [address] Performed By: #### 2 4323-8 #### [facility] CLIA [id number] [address] [place], [place] [address] [place] CO2 [Moles/Vol] 27 mmol/L Normal 22-30 [facility] Comment on above: Order Comment: Speci men Type: BLOOD SPECIMEN Ordering Facility: [facility] Address: [address] [place], [place] [address] Performed By: #### 2 4323-8 #### [facility] CLIA [id number] [address] [place], [place] [address] [place] Creatinine [Mass/Vol] 0.90 mg/dL Normal 0.58-0.96 [facility] Comment on above: Order Comment: Speci men Type: BLOOD SPECIMEN Ordering Facility: [facility] Address: [address] [place], [place] [address] Performed By: #### 2 4323-8 #### [facility] CLIA [id number] [address] [place], [place] [address] [place] ESTIMATED GLOMERULAR FILTRATION RATE 74 mL/min/1.73m??? Normal >=60 [facility] Comment on above: Order Comment: Felecia mcnally Type: BLOOD SPECIMEN Ordering Facility: [facility] Address: [address] [place], [place] [address] Result Comment: Lory mated Glomerular Filtration Rate [...] GFR. Performed By: #### 2 4323-8 #### [facility] CLIA [id number] [address] [place], [place] [address] [place] Glucose [Mass/Vol] 156 mg/dL High 74-99 [facility] Comment on above: Order Comment: Felecia mcnally Type: BLOOD SPECIMEN Ordering Facility: [facility] Address: [address] [place], [place] [address] Result Comment: The [place] Diabetes Association (ADA) provides guidance for cutoff [...] Standards of Medical Care in Diabetes 2016, [place] Diabetes Association. Diabetes Care. 2016.39(Suppl 1). Performed By: #### 2 4323-8 #### [facility] CLIA [id number] [address] [place] [address] [place] [address] [place] Potassium [Moles/Vol] 4.9 mmol/L Normal 3.7-5.1 [facility] Comment on above: Order Comment: Speci men Type: BLOOD SPECIMEN Ordering Facility: [facility] Address: [address] [place], [place] [address] Performed By: #### 2 4323-8 #### [facility] CLIA [id number] [address] [place], [place] [address] [place] [facility] Protein [Mass/Vol] 7.0 g/dL Normal 6.3-8.0 [facility] Comment on above: Order Comment: Speci men Type: BLOOD SPECIMEN Ordering Facility: [facility] Address: [address] [place] [address] Performed By: #### 2 4323-8 #### [facility] CLIA [id number] [address] [place], [place] [address] [place] Sodium [Moles/Vol] 141 mmol/L Normal 136-144 [facility] Comment on above: Order Comment: Speci men Type: BLOOD SPECIMEN Ordering Facility: [facility] Address: [address] [place] [address] Performed By: #### 2 4323-8 #### [facility] IA [id number] [address] [place], [place] [address] [place] Urea nitrogen [Mass/Vol] 26 mg/dL High 7-21 [facility] Comment on above: Order Comment: Speci men Type: BLOOD SPECIMEN Ordering Facility: [facility] Address: [address] [place], [place] [address] Performed By: #### 2 4323-8 #### [facility] CLIA [id number] [address] [place], [place] [address] [place] Fact VIII Act/Nor PPPon - Coagulation factor VIII activity actual/normal Coag (PPP) [Relative time] 123 % Normal 50-173 [facility] Comment on above: Order Comment: Speci men Type: BLOOD SPECIMEN Ordering Facility: [facility] Address: [address] [place], [place] [address] Performed By: #### 3 209-4 #### [facility] CLIA [id number] [address] [place] [address] [place] HbA1c (Bld)on 11-13-2021 Average glucose Estimated from glycated hemoglobin (Bld) [Mass/Vol] 189 mg/dL [facility] Comment on above: Order Comment: [facility] Type: BLOOD SPECIMEN Ordering Facility: [facility] Address: [address] [place] [address] Result Comment: eAG: (Estimated average glucose) is a calculated value from HgbA1c and is medical office representative of the average blood glucose level in the last 2-3 month period. Performed By: #### 5 5454-3 #### [facility] CLIA [id number] [address] [place] [address] HbA1c (Bld) [Mass fraction] 8.2 % High 4.3-5.6 [facility] Comment on above: Order Comment: Felecia men Type: BLOOD SPECIMEN Ordering Facility: [facility] Address: [address] [place] [address] Result Comment: [place] Diabetes Association guidelines indicate that patients with HgbA1c in the range 5.7-6.4% are at increased risk for development of diabetes, and intervention by lifestyle modification may be beneficial. HgbA1c greater or equal to 6.5% is considered diagnostic of diabetes. Performed By: #### 5 5454-3 #### [facility] CLIA [id number] [address] [place] [address] [place] TYPE AND SCREEN,30 DAYon ABO O [facility] Comment on above: Order Comment: Speci men Type: BLOOD SPECIMEN Ordering Facility: [facility] Address: [address] [place] [address] Performed By: #### T SCR30 #### [facility] CLIA [id number] [address] ATT[address] [facility] HISTORICAL AB SCR STATUS Negative [facility] Comment on above: Order Comment: Speci men Type: BLOOD SPECIMEN Ordering Facility: [facility] Address: [address] [place] [address] Performed By: #### T SCR30 #### [facility] IA [id number] [address] [place] [address] [place] Rh Nom (Bld) Positive Normal [facility] Comment on above: Order Comment: Speci men Type: BLOOD SPECIMEN Ordering Facility: [facility] Address: [address] [place] [address] Performed By: #### T SCR30 #### [facility] IA [id number] [address] [place] [address] BNPon 09-28-2021 Natriuretic peptide B (Bld) [Mass/Vol] 131.0 pg/mL Normal <=900.0 [facility] Comment on above: Performed By: #### B DERMATOLOGICAL SURGEON, CMP #### [facility] [address] [place] [address] Dr. Argelia Baird PROF 14(COMP METB)on 022 Albumin [Mass/Vol] 3.6 g/dL Normal 3.4-5.0 [facility] Comment on above: Performed By: #### B DERMATOLOGICAL SURGEON, CMP #### [facility] [address] [place] [address] Dr. Argelia Baird Albumin/Globulin [Mass ratio] 1.0 {ratio} Normal [facility] Comment on above: Performed By: #### B DERMATOLOGICAL SURGEON, CMP #### [facility] [address] [place] [address] Dr. Argelia Baird ALP [Catalytic activity/Vol] 90 U/L Normal 46-116 [facility] Comment on above: Performed By: #### B DERMATOLOGICAL SURGEON, CMP #### [facility] [address] [place] [address] Dr. Argelia Baird ALT [Catalytic activity/Vol] 33 U/L Normal 14-59 [facility] Comment on above: Performed By: #### B DERMATOLOGICAL SURGEON, CMP #### [facility] [address] [place] [address] Dr. Argelia Baird Anion gap [Moles/Vol] 11.7 mmol/L Normal [facility] Comment on above: Performed By: #### B DERMATOLOGICAL SURGEON, CMP #### [facility] [address] [place] [address] Dr. Argelia Baird AST [Catalytic activity/Vol] 21 U/L Normal 15-37 [facility] Comment on above: Performed By: #### B DERMATOLOGICAL SURGEON, CMP #### [facility] [address] [place] [address] Dr. Argelia Baird Bilirubin [Mass/Vol] 0.5 mg/dL Normal 0.2-1.0 [facility] Comment on above: Performed By: #### B DERMATOLOGICAL SURGEON, CMP #### [facility] [address] [place] [address] Dr. Argelia Baird Calcium [Mass/Vol] 8.9 mg/dL Normal 8.5-10.1 [facility] Comment on above: Performed By: #### B DERMATOLOGICAL SURGEON, CMP #### [facility] [address] [place] [address] Dr. Argelia Baird Chloride [Moles/Vol] 102 mmol/L Normal 98-107 [facility] Comment on above: Performed By: #### B DERMATOLOGICAL SURGEON, CMP #### [facility] [address] [place] [address] Dr. Argelia Baird CO2 [Moles/Vol] 29.3 mmol/L Normal 21.0-32.0 [facility] Comment on above: Performed By: #### B DERMATOLOGICAL SURGEON, CMP #### [facility] [address] [place] [address] Dr. Argelia Baird Creatinine [Mass/Vol] 1.05 mg/dL Critically high 0.55-1.02 [facility] Comment on above: Performed By: #### B DERMATOLOGICAL SURGEON, CMP #### [facility] [address] [place] [address] Dr. Argelia Baird EGFR-AF CHADIAN >60 Normal >=60 [facility] Comment on above: Performed By: #### B DERMATOLOGICAL SURGEON, CMP #### [facility] [address] [place] [address] Dr. Argelia Baird EGFR-NON AF CHADIAN 54 mL/min/1.73m2 Critically low >=60 [facility] Comment on above: Performed By: #### B DERMATOLOGICAL SURGEON, CMP #### [facility] [address] [place] [address] [address] Argelia Baird Globulin (S) [Mass/Vol] 3.5 g/dL Normal [facility] Comment on above: Performed By: #### B DERMATOLOGICAL SURGEON, CMP #### [facility] [address] [place] [address] [address] Argelia Baird Glucose [Mass/Vol] 145 mg/dL Critically high 74-106 [facility] Comment on above: Performed By: #### B DERMATOLOGICAL SURGEON, CMP #### [facility] [address] [place] [address] Dr. Argelia Baird Potassium [Moles/Vol] 4.0 mmol/L Normal 3.5-5.1 [facility] Comment on above: Performed By: #### B DERMATOLOGICAL SURGEON, CMP #### [facility] [address] [place] [address] Dr. Argelia Baird Protein [Mass/Vol] 7.1 g/dL Normal 6.4-8.2 [facility] Comment on above: Performed By: #### B DERMATOLOGICAL SURGEON, CMP #### [facility] [address] [place] [address] Dr. Argelia Baird Sodium [Moles/Vol] 139 mmol/L Normal 136-145 [facility] Comment on above: Performed By: #### B DERMATOLOGICAL SURGEON, CMP #### [facility] [address] [place] [address] Dr. Argelia Baird Urea nitrogen [Mass/Vol] 32.0 mg/dL Critically high 7.0-18.0 [facility] Comment on above: Performed By: #### B DERMATOLOGICAL SURGEON, CMP #### [facility] [address] [place] [address] Dr. Argelia Baird Urea nitrogen/Creatinine [Mass ratio] 30.5 mg/mg Normal [facility] Comment on above: Performed By: #### B DERMATOLOGICAL SURGEON, CMP #### [facility] [address] [place] [address] Dr. Argelia Baird BNPon 09-20-2021 Natriuretic peptide B (Bld) [Mass/Vol] 162.0 pg/mL Normal <=900.0 [facility] Comment on above: Performed By: #### B DERMATOLOGICAL SURGEON, CMP #### [facility] [address] [place] [address] Dr. Argelia Baird CBC AUTO DIFFon 09-20-2021 BASO # 0.0 103/ul Normal 0.0-0.1 [facility] Comment on above: Performed By: #### B DERMATOLOGICAL SURGEON, CMP #### [facility] [address] [place] [address] Dr. Argelia Baird Basophils/100 WBC (Bld) 0.4 % Normal 0.2-2.0 [facility] Comment on above: Performed By: #### B DERMATOLOGICAL SURGEON, CMP #### [facility] [address] [place] [address] Dr. Argelia Baird EO # 0.3 103/ul Normal 0.0-0.7 [facility] [facility] Comment on above: Performed By: #### B DERMATOLOGICAL SURGEON, CMP #### [facility] [address] [place] [address] Dr. Argelia Baird Eosinophils/100 WBC (Bld) 3.8 % Normal 0.9-7.0 [facility] Comment on above: Performed By: #### B DERMATOLOGICAL SURGEON, CMP #### [facility] [address] [place] [address] Dr. Argelia Baird Erythrocyte distribution width (RBC) [Ratio] 14.1 % Normal 11.0-15.0 [facility] Comment on above: Performed By: #### B DERMATOLOGICAL SURGEON, CMP #### [facility] [address] [place] [address] Dr. Argelia Baird Hematocrit (Bld) [Volume fraction] 41.7 % Normal 36.0-48.0 [facility] Comment on above: Performed By: #### B DERMATOLOGICAL SURGEON, CMP #### [facility] [address] [place] [address] Dr. Argelia Baird Hemoglobin (Bld) [Mass/Vol] 13.0 g/dL Normal 12.0-16.0 [facility] Comment on above: Performed By: #### B DERMATOLOGICAL SURGEON, CMP #### [facility] [address] [place] [address] Dr. Argelia Baird IG # 0.02 10e3/ul Normal 0.00-0.03 [facility] Comment on above: Performed By: #### B DERMATOLOGICAL SURGEON, CMP #### [facility] [address] [place] [address] Dr. Argelia Baird IG % 0.3 % Normal 0.0-0.5 [facility] Comment on above: Performed By: #### B DERMATOLOGICAL SURGEON, CMP #### [facility] [address] [place] [address] Dr. Argelia Baird LYMPH # 1.1 103/ul Critically low 1.2-3.8 [facility] Comment on above: Performed By: #### B DERMATOLOGICAL SURGEON, CMP #### [facility] [address] [place] [address] Dr. Argelia Baird Lymphocytes/100 WBC (Bld) 14.2 % Critically low 20.5-60.0 [facility] Comment on above: Performed By: #### B DERMATOLOGICAL SURGEON, CMP #### [facility] [address] [place] [address] Dr. Argelia Baird MANUAL DIFF REQ NO Normal [facility] Comment on above: Performed By: #### B DERMATOLOGICAL SURGEON, CMP #### [facility] [address] [place] [address] Dr. Argelia Baird MCH (RBC) [Entitic mass] 28.9 pg Normal 26.7-34.0 [facility] Comment on above: Performed By: #### B DERMATOLOGICAL SURGEON, CMP #### [facility] [address] [place] [address] Dr. Argelia Baird MCHC (RBC) [Mass/Vol] 31.2 g/dL Normal 29.9-35.2 [facility] Comment on above: Performed By: #### B DERMATOLOGICAL SURGEON, CMP #### [facility] [address] [place] [address] Dr. Argelia Baird MCV (RBC) [Entitic vol] 92.7 fL Normal 81.0-99.0 [facility] Comment on above: Performed By: #### B DERMATOLOGICAL SURGEON, CMP #### [facility] [address] [place] [address] Dr. Argelia Baird MONO # 0.9 103/ul Critically high 0.3-0.8 [facility] Comment on above: Performed By: #### B DERMATOLOGICAL SURGEON, CMP #### [facility] [address] [place] [address] Dr. Argelia Baird Monocytes/100 WBC (Bld) 11.2 % Normal 1.7-12.0 [facility] Comment on above: Performed By: #### B DERMATOLOGICAL SURGEON, CMP #### [facility] [address] [place] [address] Dr. Argelia Baird NEUT # 5.4 103/ul Normal 1.4-6.5 [facility] Comment on above: Performed By: #### B DERMATOLOGICAL SURGEON, CMP #### [facility] [address] [place] [address] Dr. Argelia Baird Neutrophils/100 WBC (Bld) 70.1 % Normal 43.0-75.0 [facility] Comment on above: Performed By: #### B DERMATOLOGICAL SURGEON, CMP #### [facility] [address] [place] [address] Dr. Argelia Baird Platelet mean volume (Bld) [Entitic vol] 9.1 fL Critically low 9.5-13.5 [facility] Comment on above: Performed By: #### B DERMATOLOGICAL SURGEON, CMP #### [facility] [address] [place] [address] Dr. Argelia Baird PLT 319 103/ul Normal 150-450 [facility] Comment on above: Performed By: #### B DERMATOLOGICAL SURGEON, CMP #### [facility] [address] [place] [address] Dr. Argelia Baird RBC 4.50 106/ul Normal 4.20-5.40 [facility] Comment on above: Performed By: #### B DERMATOLOGICAL SURGEON, CMP #### [facility] [address] [place] [address] Dr. Argelia Baird WBC 7.7 103/ul Normal 4.0-11.0 [facility] Comment on above: Performed By: #### B DERMATOLOGICAL SURGEON, CMP #### [facility] [address] [place] [address] Dr. Argelia Baird PROF 14(COMP METB)on 022 Albumin [Mass/Vol] 3.6 g/dL Normal 3.4-5.0 [facility] Comment on above: Performed By: #### B DERMATOLOGICAL SURGEON, CMP #### [facility] [address] [place] [address] Dr. Argelia Baird Albumin/Globulin [Mass ratio] 1.1 {ratio} Normal [facility] Comment on above: Performed By: #### B DERMATOLOGICAL SURGEON, CMP #### [facility] [address] [place] [address] Dr. Argelia Baird ALP [Catalytic activity/Vol] 123 U/L Critically high 46-116 [facility] Comment on above: Performed By: #### B DERMATOLOGICAL SURGEON, CMP #### [facility] [address] [place] [address] Dr. Argelia Baird ALT [Catalytic activity/Vol] 45 U/L Normal 14-59 [facility] Comment on above: Performed By: #### B DERMATOLOGICAL SURGEON, CMP #### [facility] [address] [place] [address] Dr. Argelia Baird Anion gap [Moles/Vol] 6.0 mmol/L Normal [facility] Comment on above: Performed By: #### B DERMATOLOGICAL SURGEON, CMP #### [facility] [address] [place] [address] Dr. Argelia Baird AST [Catalytic activity/Vol] 28 U/L Normal 15-37 [facility] Comment on above: Performed By: #### B DERMATOLOGICAL SURGEON, CMP #### [facility] [address] [place] [address] Dr. Argelia Baird Bilirubin [Mass/Vol] 1.0 mg/dL Normal 0.2-1.0 [facility] Comment on above: Performed By: #### B DERMATOLOGICAL SURGEON, CMP #### [facility] [address] [place] [address] Dr. Argelia Baird Calcium [Mass/Vol] 8.6 mg/dL Normal 8.5-10.1 [facility] Comment on above: Performed By: #### B DERMATOLOGICAL SURGEON, CMP #### [facility] [address] [place] [address] Dr. Argelia Baird Chloride [Moles/Vol] 99 mmol/L Normal 98-107 [facility] Comment on above: Performed By: #### B DERMATOLOGICAL SURGEON, CMP #### [facility] [address] [place] [address] Dr. Argelia Baird CO2 [Moles/Vol] 34.0 mmol/L Critically high 21.0-32.0 [facility] Comment on above: Performed By: #### B DERMATOLOGICAL SURGEON, CMP #### [facility] [address] [place] [address] Dr. Argelia Baird Creatinine [Mass/Vol] 1.11 mg/dL Critically high 0.55-1.02 [facility] Comment on above: Performed By: #### B DERMATOLOGICAL SURGEON, CMP #### [facility] [address] [place] [address] Dr. Argelia Baird EGFR-AF CHADIAN >60 Normal >=60 [facility] Comment on above: Performed By: #### B DERMATOLOGICAL SURGEON, CMP #### [facility] [address] [place] [address] Dr. Argelia Baird EGFR-NON AF CHADIAN 50 mL/min/1.73m2 Critically low >=60 [facility] Comment on above: Performed By: #### B DERMATOLOGICAL SURGEON, CMP #### [facility] [address] [place] [address] Dr. Argelia Baird Globulin (S) [Mass/Vol] 3.4 g/dL Normal [facility] Comment on above: Performed By: #### B DERMATOLOGICAL SURGEON, CMP #### [facility] [address] [place] [address] Dr. Argelia Baird Glucose [Mass/Vol] 84 mg/dL Normal 74-106 [facility] Comment on above: Performed By: #### B DERMATOLOGICAL SURGEON, CMP #### [facility] [address] [place] [address] Dr. Argelia Baird Potassium [Moles/Vol] 3.0 mmol/L Critically low 3.5-5.1 [facility] Comment on above: Performed By: #### B DERMATOLOGICAL SURGEON, CMP #### [facility] [address] [place] [address] Dr. Argelia Baird Protein [Mass/Vol] 7.0 g/dL Normal 6.1-8.2 [facility] Comment on above: Performed By: #### B DERMATOLOGICAL SURGEON, CMP #### [facility] [address] [place] [address] Dr. Argelia Baird Sodium [Moles/Vol] 136 mmol/L Normal 136-145 [facility] Comment on above: Performed By: #### B DERMATOLOGICAL SURGEON, CMP #### [facility] [address] [place] [address] Dr. Argelia Baird Urea nitrogen [Mass/Vol] 30.0 mg/dL Critically high 7.0-18.0 [facility] Comment on above: Performed By: #### B DERMATOLOGICAL SURGEON, CMP #### [facility] [address] [place] [address] Dr. Argelia Baird Urea nitrogen/Creatinine [Mass ratio] 27.0 mg/mg Normal [facility] Comment on above: Performed By: #### B DERMATOLOGICAL SURGEON, CMP #### [facility] [address] [place] [address] Dr. Argelia Baird BNPon 09-19-2021 Natriuretic peptide B (Bld) [Mass/Vol] 199.0 pg/mL Normal <=900.0 [facility] Comment on above: Performed By: #### C MREP #### [facility] [address] [place] [address] Dr. Argelia Baird CARDIAC JAMES 3-6on 2 CK [Catalytic activity/Vol] 90 U/L Normal 26-192 [facility] Comment on above: Performed By: #### B DERMATOLOGICAL SURGEON, CMP #### [facility] [address] [place] [address] Dr. Argelia Baird CK.MB [Mass/Vol] 1.84 ng/mL Normal <=3.60 [facility] Comment on above: Performed By: #### B DERMATOLOGICAL SURGEON, CMP #### [facility] [address] [place] [address] Dr. Argelia Baird HSTROP 14.1 pg/mL Normal 4.0-51.3 [facility] Comment on above: Result Comment: CUT- OFF POINTS HAVE BEEN ESTABLISHED BASED ON THE FOURTH UNIVERSAL DEFINITIONS OF MYOCARDIAL INFARCTION. THE UPPER REFERENCE LIMIT (URL) OF TROPONIN, DEFINED THE 99TH PERCENTILE OF cTnI DISTRIBUTION IN A REFERENCE POPULATION, HAS BEEN CONFIRMED THE DECISION THRESHOLD FOR [place] DIAGNOSIS. Performed By: #### B DERMATOLOGICAL SURGEON, CMP #### [facility] [address] [place] [address] Dr. Argelia Baird CK [Catalytic activity/Vol] 106 U/L Normal 26-192 [facility] Comment on above: Performed By: #### C MREP #### [facility] [address] [place] [address] Dr. Argelia Baird CK.MB [Mass/Vol] 1.93 ng/mL Normal <=3.60 [facility] Comment on above: Performed By: #### C MREP #### [facility] [address] [place] [address] Dr. Argelia Baird HSTROP 15.0 pg/mL Normal 4.0-51.3 [facility] Comment on above: Result Comment: CUT- OFF POINTS HAVE BEEN ESTABLISHED BASED ON THE FOURTH UNIVERSAL DEFINITIONS OF MYOCARDIAL INFARCTION. THE UPPER REFERENCE LIMIT (URL) OF TROPONIN, DEFINED THE 99TH PERCENTILE OF cTnI DISTRIBUTION IN A REFERENCE POPULATION, HAS BEEN CONFIRMED THE DECISION THRESHOLD FOR [place] DIAGNOSIS. Performed By: #### C MREP #### [facility] [address] [place] [address] Dr. Argelia Baird CARDIAC JAMES ADMITon 022 CK [Catalytic activity/Vol] 127 U/L Normal 26-192 [facility] Comment on above: Performed By: #### C MREP #### [facility] [address] [place] [address] Dr. Argelia Baird CK.MB [Mass/Vol] 1.94 ng/mL Normal <=3.60 [facility] Comment on above: Performed By: #### C MREP #### [facility] [address] [place] [address] Dr. Argelia Baird MAU 62 ng/mL Normal 9-82 [facility] Comment on above: Performed By: #### C MREP #### [facility] [address] [place] [address] Dr. Argelia Baird CBC AUTO DIFFon 09-19-2021 BASO # 0.1 103/ul Normal 0.0-0.1 [facility] Comment on above: Performed By: #### C MREP #### [facility] [address] [place] [address] Dr. Argelia Baird Basophils/100 WBC (Bld) 0.7 % Normal 0.2-2.0 [facility] Comment on above: Performed By: #### C MREP #### [facility] [address] [place] [address] Dr. Argelia Baird EO # 0.3 103/ul Normal 0.0-0.7 [facility] Comment on above: Performed By: #### C MREP #### [facility] [address] [place] [address] Dr. Argelia Baird Eosinophils/100 WBC (Bld) 3.9 % Normal 0.9-7.0 [facility] Comment on above: Performed By: #### C MREP #### [facility] [address] [place] [address] Dr. Argelia Baird Erythrocyte distribution width (RBC) [Ratio] 13.9 % Normal 11.0-15.0 [facility] Comment on above: Performed By: #### C MREP #### [facility] [address] [place] [address] Dr. Argelia Baird Hematocrit (Bld) [Volume fraction] 43.7 % Normal 36.0-48.0 [facility] Comment on above: Performed By: #### C MREP #### [facility] [address] [place] [address] Dr. Argelia Baird Hemoglobin (Bld) [Mass/Vol] 14.1 g/dL Normal 12.0-16.0 [facility] Comment on above: Performed By: #### C MREP #### [facility] [address] [address] [address] Argelia Baird IG # 0.03 10e3/ul Normal 0.00-0.03 [facility] Comment on above: Performed By: #### C MREP #### [facility] [address] [place] [address] Dr. Argelia Baird IG % 0.4 % Normal 0.0-0.5 [facility] Comment on above: Performed By: #### C MREP #### [facility] [address] [place] [address] Dr. Argelia Baird LYMPH # 1.2 103/ul Normal 1.2-3.8 [facility] Comment on above: Performed By: #### C MREP #### [facility] [address] [place] [address] Dr. Argelai Baird Lymphocytes/100 WBC (Bld) 14.4 % Critically low 20.5-60.0 [facility] Comment on above: Performed By: #### C MREP #### [facility] [address] [place] [address] Dr. Argelia Baird MANUAL DIFF REQ NO Normal [facility] Comment on above: Performed By: #### C MREP #### [facility] [address] [place] [address] Dr. Argelia Baird MCH (RBC) [Entitic mass] 28.9 pg Normal 26.7-34.0 [facility] Comment on above: Performed By: #### C MREP #### [facility] [address] [place] [address] Dr. Argelia Baird MCHC (RBC) [Mass/Vol] 32.3 g/dL Normal 29.9-35.2 [facility] Comment on above: Performed By: #### C MREP #### [facility] [address] [place] [address] Dr. Argelia Baird MCV (RBC) [Entitic vol] 89.5 fL Normal 81.0-99.0 [facility] Comment on above: Performed By: #### C MREP #### [facility] [address] [address] [address] Argelia Baird MONO # 0.8 103/ul Normal 0.3-0.8 [facility] Comment on above: Performed By: #### C MREP #### [facility] [address] [address] [address] Argelia Baird Monocytes/100 WBC (Bld) 9.7 % Normal 1.7-12.0 [facility] Comment on above: Performed By: #### C MREP #### [facility] [address] [place] [address] Dr. Argelia Baird NEUT # 6.1 103/ul Normal 1.4-6.5 [facility] Comment on above: Performed By: #### C MREP #### [facility] [address] [place] [address] Dr. Argelia Baird Neutrophils/100 WBC (Bld) 70.9 % Normal 43.0-75.0 [facility] Comment on above: Performed By: #### C MREP #### [facility] [address] [place] [address] Dr. Argelia Baird Platelet mean volume (Bld) [Entitic vol] 9.2 fL Critically low 9.5-13.5 [facility] Comment on above: Performed By: #### C MREP #### [facility] [address] [place] [address] Dr. Argelia Baird PLT 342 103/ul Normal 150-450 [facility] Comment on above: Performed By: #### C MREP #### [facility] [address] [place] [address] Dr. Argelia Baird RBC 4.88 106/ul Normal 4.20-5.40 [facility] Comment on above: Performed By: #### C MREP #### [facility] [address] [place] [address] Dr. Argelia Baird WBC 8.6 103/ul Normal 4.0-11.0 [facility] Comment on above: Performed By: #### C MREP #### [facility] [address] [place] [address] Dr. Argelia Baird Covid-19 PCR (CVDTB)on SARS-CoV-2 (COVID-19) RNA FOX+probe Ql (Unsp spec) Not detected Normal NOT DETECTED [facility] Comment on above: Result Comment: When diagnostic [...] for this test is supported by the [place] of Health and Human Service's declaration that [...] used). Performed By: #### C VDTBH #### [facility] [address] [place] [address] Dr. Argelia Baird D-DIMERon 09-19-2021 D-DIMER 0.26 mg/L FEU Normal 0.19-0.50 [facility] Comment on above: Performed By: #### B DERMATOLOGICAL SURGEON, CMP #### [facility] [address] [place] [address] Dr. Argelia Baird D-DIMER COMMENTS SEE BELOW Normal [facility] Comment on above: Result Comment: Incr eases [...] and generalized hospitalization. Performed By: #### B DERMATOLOGICAL SURGEON, CMP #### [facility] [address] [address] [address] Argelia Baird ECHO LIMITED STUDYon 022 ECHO LIMITED STUDY Patient: ASHLEY SERRA Exam Date: 09/19/2021 : 1965 Gender:F Ordering : DR PATTI VALDEZ . Admission #: [id number] Family : Order #: [id number] CLICK HERE TO VIEW EXAM ECHOCARDIOGRAM REPORT [...] Burnett M.D. on 09/19/2021 at 13:28 Normal [facility] ER URINE PROFILEon 2 Bilirubin Ql (U) Negative Normal NEGATIVE [facility] Comment on above: Performed By: #### B DERMATOLOGICAL SURGEON, CMP #### [facility] [address] [place] [address] Dr. Argelia Baird Clarity (U) CLEAR Normal CLEAR [facility] Comment on above: Performed By: #### B DERMATOLOGICAL SURGEON, CMP #### [facility] [address] [place] [address] Dr. Argelia Baird Color (U) LT. YELLOW Normal YELLOW [facility] Comment on above: Performed By: #### B DERMATOLOGICAL SURGEON, CMP #### [facility] [address] [place] [address] Dr. Argelia LITTLEJOHN A micrscopic examination will be performed if indicated. Normal [facility] Comment on above: Performed By: #### B DERMATOLOGICAL SURGEON, CMP #### [facility] [address] [place] [address] Dr. Argelia Baird Glucose Ql (U) >1000 Abnormal NEGATIVE [facility] Comment on above: Performed By: #### B DERMATOLOGICAL SURGEON, CMP #### [facility] [address] [place] [address] Dr. Argelia Baird Hemoglobin Ql (U) Negative Normal NEGATIVE [facility] Comment on above: Performed By: #### B DERMATOLOGICAL SURGEON, CMP #### [facility] [address] [place] [address] Dr. Argelia Baird Ketones Ql (U) Negative Normal NEGATIVE [facility] Comment on above: Performed By: #### B DERMATOLOGICAL SURGEON, CMP #### [facility] [address] [place] [address] Dr. Argelia Baird LEUKOCYTES Negative Normal NEGATIVE [facility] Comment on above: Performed By: #### B DERMATOLOGICAL SURGEON, CMP #### [facility] [address] [place] [address] Dr. Argelia Baird Nitrite Ql (U) Negative Normal NEGATIVE [facility] Comment on above: Performed By: #### B DERMATOLOGICAL SURGEON, CMP #### [facility] [address] [place] [address] Dr. Argelia Baird pH (U) 5.5 [pH] Normal 5-9 [facility] Comment on above: Performed By: #### B DERMATOLOGICAL SURGEON, CMP #### [facility] [address] [place] [address] Dr. Argelia Baird SPEC GRAVITY <=1.005 Abnormal 1.005-<=1.025 [facility] Comment on above: Performed By: #### B DERMATOLOGICAL SURGEON, CMP #### [facility] [address] [place] [address] Dr. Argelia Baird UA PROTEIN Negative Normal NEGATIVE/ TRACE [facility] Comment on above: Performed By: #### B DERMATOLOGICAL SURGEON, CMP #### [facility] [address] [place] [address] Dr. Argelia Baird UR MICRO IND NOT INDICATED Normal [facility] Comment on above: Performed By: #### B DERMATOLOGICAL SURGEON, CMP #### [facility] [address] [place] [address] Dr. Argelia Baird Urobilinogen Qn (U) 0.2 {Mp'U}/dL Normal 0.2 - 1. 0 [facility] Comment on above: Performed By: #### B DERMATOLOGICAL SURGEON, CMP #### [facility] [address] [place] [address] Dr. Argelia Baird PROTIMEon 09-19-2021 INR Coag (PPP) [Relative time] 1.03 {INR} Normal [facility] Comment on above: Performed By: #### B DERMATOLOGICAL SURGEON, CMP #### [facility] [address] [place] [address] Dr. Argelia Baird INR GUIDELINES SEE BELOW Normal [facility] Comment on above: Result Comment: MIGUEL RED INR: 2.0 - 3.0 CONDITIONS NOT LISTED BELOW 2.5 - 3.5 FOR PROSTHETIC HEART VALVE REPLACEMENT 2.5 - 3.5 RECURRENT THROMBOSIS Performed By: #### B DERMATOLOGICAL SURGEON, CMP #### [facility] [address] [place] [address] Dr. Argelia Baird PT Coag (PPP) [Time] 11.1 s Normal 9.0-11.6 [facility] Comment on above: Performed By: #### B DERMATOLOGICAL SURGEON, CMP #### [facility] [address] [place], [place] [address] Dr. Argelia Baird PTTon 09-19-2021 aPTT Coag (Bld) [Time] 26.6 s Normal 22.3-36.2 [facility] Comment on above: Performed By: #### B DERMATOLOGICAL SURGEON, CMP #### [facility] [address] [place] [address] Dr. Argelia Baird TROPONIN, HIGH SENSITIVITYon 09-19-2021 HSTROP 15.1 pg/mL Normal 4.0-51.3 [facility] Comment on above: Result Comment: CUT- OFF POINTS HAVE BEEN ESTABLISHED BASED ON THE FOURTH UNIVERSAL DEFINITIONS OF MYOCARDIAL INFARCTION. THE UPPER REFERENCE LIMIT (URL) OF TROPONIN, DEFINED THE 99TH PERCENTILE OF cTnI DISTRIBUTION IN A REFERENCE POPULATION, HAS BEEN CONFIRMED THE DECISION THRESHOLD FOR [place] DIAGNOSIS. Performed By: #### C VDTBH #### [facility] [address] [place] [address] Dr. Argelia Baird HSTROP 16.0 pg/mL Normal 4.0-51.3 [facility] Comment on above: Result Comment: CUT- OFF POINTS HAVE BEEN ESTABLISHED BASED ON THE FOURTH UNIVERSAL DEFINITIONS OF MYOCARDIAL INFARCTION. THE UPPER REFERENCE LIMIT (URL) OF TROPONIN, DEFINED THE 99TH PERCENTILE OF cTnI DISTRIBUTION IN A REFERENCE POPULATION, HAS BEEN CONFIRMED THE DECISION THRESHOLD FOR VT DIAGNOSIS. Performed By: #### C MREP #### [facility] [address] [place] [address] Dr. Argelia Baird XR CHEST 1 Von [...] AUNDREA GOSS Date: 2021-09-19 08:54 Normal [facility] CARDIAC JAMES ADMITon 022 CK [Catalytic activity/Vol] 67 U/L Normal 30-135 [facility] Comment on above: Performed By: #### B DERMATOLOGICAL SURGEON, CMP #### [facility] [address], [place] [address] Dr. Argelia Baird CK.MB [Mass/Vol] 1.66 ng/mL Normal <=2.37 The [facility] Comment on above: Performed By: #### B DERMATOLOGICAL SURGEON, CMP #### [facility] [address], [place] [address] Dr. Argelia Baird HSTROP 92.9 pg/mL Critically high 4.0-35.5 The [facility] Comment on above: Result Comment: CUT- OFF POINTS HAVE BEEN ESTABLISHED BASED ON THE FOURTH UNIVERSAL DEFINITIONS OF MYOCARDIAL INFARCTION. THE UPPER REFERENCE LIMIT (URL) OF TROPONIN, DEFINED THE 99TH PERCENTILE OF cTnI DISTRIBUTION IN A REFERENCE POPULATION, HAS BEEN CONFIRMED THE DECISION THRESHOLD FOR VT DIAGNOSIS. Test Repeated Critical Value Verified Performed By: #### B DERMATOLOGICAL SURGEON, CMP #### [facility] [address] [place], [place] [address] Dr. Argelia Baird MAU 45.0 ng/mL Normal <=61.5 [facility] [place] [facility] Comment on above: Performed By: #### B DERMATOLOGICAL SURGEON, CMP #### [facility] [address] [place], [place] [address] Dr. Argelia Baird ECHOCARDIO M/2D COMPLETEon 0 07-26-2021 ECHOCARDIO M/2D COMPLETE Patient: ANGIE SERRA Exam Date: 07/26/2021 : 1965 Gender:F Ordering : DR PATTI VALDEZ . Admission #: [id number] Family : Order #: [id number] CLICK HERE TO VIEW EXAM ECHOCARDIOGRAM REPORT [...] Area(A4C): 24.60 cm2 Left Atrium Systolic Volume(A2C): 24851 mm3 Left Atrium Systolic Volume(A4C): 93606 mm3 Mitral Valve MV E to A Ratio: 0.70 Deceleration Maury: 3560 mm/s2 Mitral Valve A-Wave Peak Velocity: [...] M.D. on 07/27/2021 at 20:54 Normal [facility] [place] [facility] PTT HEPARIN MONITORon 2021 aPTT Coag (Bld) [Time] 40.2 s Normal 39.5-54.2 [facility] [place] [facility] Comment on above: Performed By: #### C MREP #### [facility] [address] [place] [address] Dr. Argelia Baird aPTT Coag (Bld) [Time] 31.2 s Critically low 39.5-54.2 [facility] [place] [facility] Comment on above: Result Comment: Test Repeated Critical Value Verified Performed By: #### P TTHEP #### [facility] [address] [place] [address] [address] 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 Argelia Baird TROPONIN, HIGH SENSITIVITYon 07-26-2021 HSTROP 77.3 pg/mL Critically high 4.0-35.5 The [facility] Comment on above: Result Comment: CUT- OFF POINTS HAVE BEEN ESTABLISHED BASED ON THE FOURTH UNIVERSAL DEFINITIONS OF MYOCARDIAL INFARCTION. THE UPPER REFERENCE LIMIT (URL) OF TROPONIN, DEFINED THE 99TH PERCENTILE OF cTnI DISTRIBUTION IN A REFERENCE POPULATION, HAS BEEN CONFIRMED THE DECISION THRESHOLD FOR VT DIAGNOSIS. Performed By: #### C MREP #### [facility] [address] [place] [address] Dr. Argelia Baird BNPon 07-25-2021 Natriuretic peptide B (Bld) [Mass/Vol] 105.0 pg/mL Normal <=900.0 [facility] [place] [facility] Comment on above: Performed By: #### B DERMATOLOGICAL SURGEON, CMP, CMADM #### [facility] [address] [place] [address] Dr. Argelia Baird CARDIAC JAMES 3-6on 2 CK [Catalytic activity/Vol] 70 U/L Normal 30-135 [facility] [place] [facility] Comment on above: Performed By: #### B DERMATOLOGICAL SURGEON, CMP #### [facility] [address] [place] [address] Dr. Argelia Baird CK.MB [Mass/Vol] 1.63 ng/mL Normal <=2.37 [facility] Comment on above: Performed By: #### B DERMATOLOGICAL SURGEON, CMP #### [facility] [address] [place] [address] Dr. Argelia Baird HSTROP 113.0 pg/mL Critically high 4.0-35.5 [facility] Comment on above: Result Comment: CUT- OFF POINTS HAVE BEEN ESTABLISHED BASED ON THE FOURTH UNIVERSAL DEFINITIONS OF MYOCARDIAL INFARCTION. THE UPPER REFERENCE LIMIT (URL) OF TROPONIN, DEFINED THE 99TH PERCENTILE OF cTnI DISTRIBUTION IN A REFERENCE POPULATION, HAS BEEN CONFIRMED THE DECISION THRESHOLD FOR VT DIAGNOSIS. TEST REPEATED. CRITICAL VALUE VERIFIED Performed By: #### B DERMATOLOGICAL SURGEON, CMP #### [facility] [address] [place] [address] Dr. Argelia Baird CK [Catalytic activity/Vol] 299 U/L Critically high 30-135 [facility] [place] [facility] Comment on above: Performed By: #### C MREP #### [facility] [address] [place] [address] Dr. Argelia Baird CK.MB [Mass/Vol] 1.59 ng/mL Normal <=2.37 [facility] Comment on above: Performed By: #### C MREP #### [facility] [address] [place] [address] Dr. Argelia Baird HSTROP 87.6 pg/mL Critically high 4.0-35.5 The [facility] Comment on above: Result Comment: CUT- OFF POINTS HAVE BEEN ESTABLISHED BASED ON THE FOURTH UNIVERSAL DEFINITIONS OF MYOCARDIAL INFARCTION. THE UPPER REFERENCE LIMIT (URL) OF TROPONIN, DEFINED THE 99TH PERCENTILE OF cTnI DISTRIBUTION IN A REFERENCE POPULATION, HAS BEEN CONFIRMED THE DECISION THRESHOLD FOR VT DIAGNOSIS. Performed By: #### C MREP #### [facility] [address] [place] [address] Dr. Argelia Baird CARDIAC JAMES ADMITon 022 CK [Catalytic activity/Vol] 72 U/L Normal 30-135 [facility] [place] [facility] Comment on above: Performed By: #### B DERMATOLOGICAL SURGEON, CMP #### [facility] [address] [place] [address] Dr. Argelia Baird CK.MB [Mass/Vol] 1.70 ng/mL Normal <=2.37 [facility] Comment on above: Performed By: #### B DERMATOLOGICAL SURGEON, CMP #### [facility] [address] [place] [address] Dr. Argelia Baird HSTROP 71.8 pg/mL Critically high 4.0-35.5 [facility] Comment on above: Result Comment: CUT- OFF POINTS HAVE BEEN ESTABLISHED BASED ON THE FOURTH UNIVERSAL DEFINITIONS OF MYOCARDIAL INFARCTION. THE UPPER REFERENCE LIMIT (URL) OF TROPONIN, DEFINED THE 99TH PERCENTILE OF cTnI DISTRIBUTION IN A REFERENCE POPULATION, HAS BEEN CONFIRMED THE DECISION THRESHOLD FOR VT DIAGNOSIS. Performed By: #### B DERMATOLOGICAL SURGEON, CMP #### [facility] [address] [place] [address] Dr. Argelia Baird MAU 41.0 ng/mL Normal <=61.5 [facility] [place] [facility] Comment on above: Performed By: #### B DERMATOLOGICAL SURGEON, CMP #### [facility] [address] [place] [address] Dr. Argelia Baird CBC AUTO DIFFon 07-25-2021 BASO # 0.0 103/ul Normal 0.0-0.1 [facility] Comment on above: Performed By: #### B DERMATOLOGICAL SURGEON, CMP #### [facility] [address] [place] [address] Dr. Argelia Baird Basophils/100 WBC (Bld) 0.3 % Normal 0.2-2.0 [facility] Comment on above: Performed By: #### B DERMATOLOGICAL SURGEON, CMP #### [facility] [address] [place] [address] Dr. Argelia Baird EO # 0.4 103/ul Normal 0.0-0.7 [facility] Comment on above: Performed By: #### B DERMATOLOGICAL SURGEON, CMP #### [facility] [address] [place] [address] Dr. Argelia Baird Eosinophils/100 WBC (Bld) 4.7 % Normal 0.9-7.0 [facility] Comment on above: Performed By: #### B DERMATOLOGICAL SURGEON, CMP #### [facility] [address] [place] [address] Dr. Argelia Baird Erythrocyte distribution width (RBC) [Ratio] 14.3 % Normal 11.0-15.0 [facility] Comment on above: Performed By: #### B DERMATOLOGICAL SURGEON, CMP #### [facility] [address] [place] [address] Dr. Argelia Baird Hematocrit (Bld) [Volume fraction] 38.9 % Normal 36.0-48.0 [facility] Comment on above: Performed By: #### B DERMATOLOGICAL SURGEON, CMP #### [facility] [address] [place] [address] Dr. Argelia Baird Hemoglobin (Bld) [Mass/Vol] 12.2 g/dL Normal 12.0-16.0 [facility] Comment on above: Performed By: #### B DERMATOLOGICAL SURGEON, CMP #### [facility] [address] [place] [address] Dr. Argelia Baird IG # 0.04 10e3/ul Critically high 0.00-0.03 [facility] [place] [facility] Comment on above: Performed By: #### B DERMATOLOGICAL SURGEON, CMP #### [facility] [address] [place] [address] Dr. Argelia Baird IG % 0.5 % Normal 0.0-0.5 [facility] Comment on above: Performed By: #### B DERMATOLOGICAL SURGEON, CMP #### [facility] [address] [place] [address] Dr. Argelia Baird LYMPH # 1.2 103/ul Normal 1.2-3.8 [facility] Comment on above: Performed By: #### B DERMATOLOGICAL SURGEON, CMP #### [facility] [address] [place] [address] Dr. Argelia Baird Lymphocytes/100 WBC (Bld) 13.3 % Critically low 20.5-60.0 [facility] Comment on above: Performed By: #### B DERMATOLOGICAL SURGEON, CMP #### [facility] [address] [place] [address] Dr. Argelia Baird MANUAL DIFF REQ NO Normal [facility] Comment on above: Performed By: #### B DERMATOLOGICAL SURGEON, CMP #### [facility] [address] [place] [address] Dr. Argelia Baird MCH (RBC) [Entitic mass] 29.8 pg Normal 26.7-34.0 [facility] Comment on above: Performed By: #### B DERMATOLOGICAL SURGEON, CMP #### [facility] [address] [place] [address] Dr. Argelia Baird MCHC (RBC) [Mass/Vol] 31.4 g/dL Normal 29.9-35.2 [facility] Comment on above: Performed By: #### B DERMATOLOGICAL SURGEON, CMP #### [facility] [address] [place] [address] Dr. Argelia Baird MCV (RBC) [Entitic vol] 95.1 fL Normal 81.0-99.0 [facility] Comment on above: Performed By: #### B DERMATOLOGICAL SURGEON, CMP #### [facility] [address] [place] [address] Dr. Argelia Baird MONO # 0.8 103/ul Normal 0.3-0.8 [facility] Comment on above: Performed By: #### B DERMATOLOGICAL SURGEON, CMP #### [facility] [address] [place] [address] Dr. Argelia Baird Monocytes/100 WBC (Bld) 9.4 % Normal 1.7-12.0 [facility] Comment on above: Performed By: #### B DERMATOLOGICAL SURGEON, CMP #### [facility] [address] [place] [address] Dr. Argelia Baird NEUT # 6.2 103/ul Normal 1.4-6.5 [facility] Comment on above: Performed By: #### B DERMATOLOGICAL SURGEON, CMP #### [facility] [address] [address] [address] Argelia Baird Neutrophils/100 WBC (Bld) 71.8 % Normal 43.0-75.0 [facility] Comment on above: Performed By: #### B DERMATOLOGICAL SURGEON, CMP #### [facility] [address] [place] [address] [address] Argelia Baird Platelet mean volume (Bld) [Entitic vol] 9.1 fL Critically low 9.5-13.5 [facility] Comment on above: Performed By: #### B DERMATOLOGICAL SURGEON, CMP #### [facility] [address] [place] [address] [address] Argelia Baird PLT 310 103/ul Normal 150-450 [facility] Comment on above: Performed By: #### B DERMATOLOGICAL SURGEON, CMP #### [facility] [address] [place] [address] Dr. Argelia Baird RBC 4.09 106/ul Critically low 4.20-5.40 [facility] Comment on above: Performed By: #### B DERMATOLOGICAL SURGEON, CMP #### [facility] [address] [place] [address] Dr. Argelia Baird WBC 8.7 103/ul Normal 4.0-11.0 [facility] Comment on above: Performed By: #### B DERMATOLOGICAL SURGEON, CMP #### [facility] [address] [place] [address] Dr. Argelia Baird [facility] SARS-CoV-2 (COVID-19) RNA FOX+probe Ql (Unsp spec) Not detected Normal NOT DETECTED [facility] Comment on above: Result Comment: This test is not yet approved or cleared by the [place] FDA. When there are no FDA-approved or cleared tests available, and other criteria are met, FDA can make tests available under an emergency access mechanism called an Emergency Use Authorization (EUA). The EUA for this test is supported by the [place] of Health and Human Service's (HHS's) declaration [...] consistent with SARS-CoV-2. Performed By: #### B DERMATOLOGICAL SURGEON, CMP #### [facility] [address] [place] [address] Dr. Argelia Baird D-DIMERon 07-25-2021 D-DIMER 0.36 mg/L FEU Normal 0.19-0.50 [facility] Comment on above: Performed By: #### D DIM #### [facility] [address] [place] [address] Dr. Argelia Baird D-DIMER COMMENTS SEE BELOW Normal [facility] Comment on above: Result Comment: Incr [...] hospitalization. Performed By: #### D DIM #### [facility] [address] [place] [address] Dr. Argelia Baird PROF 14(COMP METB)on 022 Albumin [Mass/Vol] 3.4 g/dL Critically low 3.5-5.0 [facility] Comment on above: Performed By: #### B DERMATOLOGICAL SURGEONTYRA CMADM #### [facility] [address] [place] [address] Dr. Argelia Baird Albumin/Globulin [Mass ratio] 1.0 {ratio} Normal [facility] Comment on above: Performed By: #### B DERMATOLOGICAL SURGEON, CMPNICK #### [facility] [address] [place] [address] Dr. Argelia Baird ALP [Catalytic activity/Vol] 104 U/L Normal 38-126 [facility] Comment on above: Performed By: #### B DERMATOLOGICAL SURGEON, CMP, CMADM #### [facility] [address] [place] [address] [address] Argelia Baird ALT [Catalytic activity/Vol] 29 U/L Normal 9-52 [facility] Comment on above: Performed By: #### B DERMATOLOGICAL SURGEON, CMP, CMADM #### [facility] [address] [place] [address] [address] Argelia Baird Anion gap [Moles/Vol] 12.1 mmol/L Normal [facility] Comment on above: Performed By: #### B DERMATOLOGICAL SURGEON, CMP, CMADM #### [facility] [address] [place] [address] Dr. Argelia Baird AST [Catalytic activity/Vol] 15 U/L Normal 14-36 [facility] Comment on above: Performed By: #### B DERMATOLOGICAL SURGEON, CMP, CMADM #### [facility] [address] [place] [address] Dr. Argelia Baird Bilirubin [Mass/Vol] 0.5 mg/dL Normal 0.2-1.3 [facility] Comment on above: Performed By: #### B DERMATOLOGICAL SURGEON, CMP, CMADM #### [facility] [address] [place] [address] Dr. Argelia Baird Calcium [Mass/Vol] 8.4 mg/dL Normal 8.4-10.2 [facility] Comment on above: Performed By: #### B DERMATOLOGICAL SURGEON, CMP, CMADM #### [facility] [address] [place] [address] Dr. Argelia Baird Chloride [Moles/Vol] 104 mmol/L Normal 98-107 [facility] Comment on above: Performed By: #### B DERMATOLOGICAL SURGEON, CMP, CMADM #### [facility] [address] [place] [address] Dr. Argelia Baird CO2 [Moles/Vol] 25.7 mmol/L Normal 22.0-30.0 [facility] Comment on above: Performed By: #### B DERMATOLOGICAL SURGEON, CMP, CMADM #### [facility] [address] [address] [address] Argelia Baird Creatinine [Mass/Vol] 0.87 mg/dL Normal 0.52-1.04 [facility] Comment on above: Performed By: #### B DERMATOLOGICAL SURGEON, CMP, CMADM #### [facility] [address] [address] [address] Argelia Baird EGFR-AF CHADIAN >60 Normal >=60 [facility] Comment on above: Performed By: #### B DERMATOLOGICAL SURGEON, CMP, CMADM #### [facility] [address] [address] [address] Argelia Baird EGFR-NON AF CHADIAN >60 Normal >=60 [facility] Comment on above: Performed By: #### B DERMATOLOGICAL SURGEON, CMP, CMADM #### [facility] [address] [address] [address] Argelia Baird Globulin (S) [Mass/Vol] 3.4 g/dL Normal [facility] Comment on above: Performed By: #### B DERMATOLOGICAL SURGEON, CMP, CMADM #### [facility] [address] [address] [address] Argelia Baird Glucose [Mass/Vol] 188 mg/dL Critically high 74-106 [facility] Comment on above: Performed By: #### B DERMATOLOGICAL SURGEON, CMP, CMADM #### [facility] [address] [address] [address] Argelia Baird Potassium [Moles/Vol] 3.8 mmol/L Normal 3.4-5.0 [facility] Comment on above: Performed By: #### B DERMATOLOGICAL SURGEON, CMP, CMADM #### [facility] [address] [address] [address] Argelia Baird Protein [Mass/Vol] 6.8 g/dL Normal 6.1-8.2 [facility] Comment on above: Performed By: #### B DERMATOLOGICAL SURGEON, CMP, CMADM #### [facility] [address] [address] [address] Areglia Baird Sodium [Moles/Vol] 138 mmol/L Normal 137-145 [facility] Comment on above: Performed By: #### B DERMATOLOGICAL SURGEON, CMP, CMADM #### [facility] [address] [place] [address] Dr. Argelia Baird Urea nitrogen [Mass/Vol] 28.0 mg/dL Critically high 7.0-17.0 [facility] Comment on above: Performed By: #### B DERMATOLOGICAL SURGEON, CMP, CMADM #### [facility] [address] [place] [address] Dr. Argelia Baird Urea nitrogen/Creatinine [Mass ratio] 32.2 mg/mg Normal [facility] Comment on above: Performed By: #### B DERMATOLOGICAL SURGEON, CMP, CMADM #### [facility] [address] [place] [address] Dr. Argelia Baird PROTIMEon 07-25-2021 INR Coag (PPP) [Relative time] 0.95 {INR} Normal [facility] Comment on above: Performed By: #### C VDTBH #### [facility] [address] [place] [address] Dr. Argelia Baird INR GUIDELINES SEE BELOW Normal [facility] Comment on above: Result Comment: MIGUEL RED INR: 2.0 - 3.0 CONDITIONS NOT LISTED BELOW 2.5 - 3.5 FOR PROSTHETIC HEART VALVE REPLACEMENT 2.5 - 3.5 RECURRENT THROMBOSIS Performed By: #### C VDTBH #### [facility] [address] [place] [address] Dr. Argelia Baird PT Coag (PPP) [Time] 10.3 s Normal 9.0-11.6 [facility] Comment on above: Performed By: #### C VDTBH #### [facility] [address] [place] [address] Dr. Argelia Baird PTTon 07-25-2021 aPTT Coag (Bld) [Time] 24.8 s Normal 22.3-36.2 [facility] Comment on above: Performed By: #### C VDTBH #### [facility] [address] [place] [address] Dr. Argelia Baird TROPONIN, HIGH SENSITIVITYon 07-25-2021 HSTROP 86.7 pg/mL Critically high 4.0-35.5 [facility] Comment on above: Result Comment: CUT- OFF POINTS HAVE BEEN ESTABLISHED BASED ON THE FOURTH UNIVERSAL DEFINITIONS OF MYOCARDIAL INFARCTION. THE UPPER REFERENCE LIMIT (URL) OF TROPONIN, DEFINED THE 99TH PERCENTILE OF cTnI DISTRIBUTION IN A REFERENCE POPULATION, HAS BEEN CONFIRMED THE DECISION THRESHOLD FOR VT DIAGNOSIS. Performed By: #### B DERMATOLOGICAL SURGEON, CMP #### [facility] [address] [place] [address] Dr. Argelia Baird XR CHEST 1 Von [...] AUNDREA RITTER Date: 2021-07-25 13:02 Normal [facility] CREATININEon 06-01-2021 Creatinine [Mass/Vol] 0.90 mg/dL Normal 0.52-1.04 [facility] Comment on above: Performed By: #### C ROBERTO CARLOS #### [facility] [address] [place] [address] Dr. Argelia Baird EGFR-AF CHADIAN >60 Normal >=60 [facility] Comment on above: Performed By: #### C ROBERTO CARLOS #### [facility] [address] [place] [address] Dr. Argelia Baird EGFR-NON AF CHADIAN >60 Normal >=60 [facility] Comment on above: Performed By: #### C ROBERTO CARLOS #### [facility] [address] [place] [address] CHEST W CONon [...] authenticated by: YENNY HOLMAN Date: 2021-06-01 10:26 [facility] NURSING PROGon 07-01-2020 NURSING PROG HNO ID: [id number] Author: Sally BillingsleyRn) AUGUSTUS Johnson Service: Nursing [...] None Electronically Signed By: Sally Johnson RN [facility] NURSING PROG HNO ID: [id number] Author: Reena BillingsleyRn) AUGUSTUS Burk Service: Nursing [...] None Electronically Signed By: Reena Burk RN [facility] HISTORY PHYSICALon HISTORY PHYSICAL HNO ID: [id number] Author: Salbador Hernandez Service: General Surgery Author [...] June 24, 2020 TIME: 7:47 AM Normal [facility] HOSPon 06-24-2020 HOSP Patient:Angie Serra MRN: [...] Aundrea Flores, PhD 06/28/2020 7:24 AM Signed [facility] BARIATRIC SURGERY BEHAVIORAL HEALTH EVALUATION DATE OF SERVICE: June 27, 2020 TIME OF SERVICE: 8 am [facility] CENTER: [facility] CPT CODE: [id number] Virtual PSYCH DIAGNOSTIC EVAL 59740 Brief Emotional/Behavioral Assessment with scoring/documentation BILLING CODE: STACY JEAN BAPTISTE Sandra SESSION #: 1 Due to the [facility] and [facility] and the need for ongoing mental health services, the following visit was completed virtually or by phone to reduce the risk of COVID-19 exposure. If this was the first visit not conducted [id number], consent to virtual visits was provided verbally and information was provided via [employer] if available. If [employer] was not available, a copy of the [...] The patient has 2 children, including 36D ([place]), 33 S 15 minutes from patient. Patient [...] strategies have been effective. The patient notes gnosticist practice is: Non-practicing, used to be very gnosticist. The patient's cultural identity/ethnicity is: . LEISURE/EXERCISE [...] address unhealthy eating behaviors (To schedule with [facility] Best Start group call [phone]) *Follow up with psychology as an inpatient [...] any questions. Aundrea Flores, PhD, RD, LD, [facility], Psychologist BEHAVIORAL HEALTH BARIATRIC EVALUATION SUMMARY PATIENT [...] RN June 23, 2020 1:13 PM Normal [facility] NURSING PROGon 06-24-2020 NURSING PROG HNO ID: [id number] Author: Vanessa (Rn) AUGUSTUS Lopez Service: ? [...] None Electronically Signed By: Vanessa Lopez RN [facility] PT EDon 06-24-2020 PT ED HNO ID: [id number] Author: Janina (Rn) AUGUSTUS Gillette Service: Nursing Author Type: Registered [...] None Electronically Signed By: Janina Gillette RN [facility] SURGICAL PATHOLOGYon 021 SURGICAL PATHOLOGY ADDENDUM PRESENT Specimen originated from [facility] Specimen #: [id number] Submitting Physician: Salbador Hernandez M.D. FINAL DIAGNOSIS [...] in-situ hybridization tests have been determined by [facility]'s [facility] Pathology and Laboratory Medicine [place] [facility] in a manner consistent with CLIA requirements. One or more of these tests have not been cleared or approved by the FDA. [facility] is regulated under CLIA as qualified [...] in one cassette. Gross examination performed at [facility], [address] [place] [address] EJ 06/24/2020 7:11:44 PM Date of Report: 06/27/2020 Date of Procedure: 06/24/2020 Date of Receipt: 06/24/2020 Submitted by: Salbador Hernandez M.D. [facility] Diagnostic interpretation performed at [facility], [address] [place] [address]. CLIA Number: [id number] [facility] HOSPon 06-10-2020 HOSP Patient:Angie Serra MRN: Height:No [...] for the following basenames: K,HCT Progress Notes ([facility]): Rhonda Barnard RN, RN 06/23/2020 1:13 PM Signed BMI SPECIALTY CARE COORDINATION TELEPHONE ENCOUNTER Returning patient call. Patient switching surgeons due to insurance. Per Dr. Morgan advised patient to keep EGD appointment scheduled for 06/24/20. Patient verbalized understanding and confirmed upcoming BMI Appointments. Rhonda Barnard RN June 23, 2020 1:13 PM Progress Notes ([facility]): Salabdor Hernandez MD 06/09/2020 2:50 PM Signed Assessment [...] If you do not have a responsible lifter driver (family member or friend) with you to take you home, your exam cannot be done with sedation and will be cancelled. Please bring a list of all of your current medications, including any Fuba-upa-Tcjebns medications with you. Medications If you take [...] hours before your exam. 3 04/2019 [facility] Vital Signs Date Time Vital Sign Value Performing Clinician Darlene rossi 06-18-2023 11:21-0500 Body height 165.1 cm ANTONIETTA Snider MD Work Phone: [facility] 06-18-2023 11:21-0500 Body weight 77.25 kg ANTONIETTA Snider MD Work Phone: [facility] 06-18-2023 11:21-0500 Diastolic blood pressure 63 mm[Hg] ANTONIETTA Snider MD Work Phone: [facility] 06-18-2023 11:21-0500 Heart rate 82 /min ANTONIETTA Snider MD Work Phone: [facility] 06-18-2023 11:21-0500 SaO2% (BldA) [Mass fraction] 96 % ANTONIETTA Snider MD Work Phone: [facility] 06-18-2023 11:21-0500 Systolic blood pressure 102 mm[Hg] ANTONIETTA Snider MD Work Phone: [facility] 12-14-2022 08:22-0400 Body height 165.1 cm ANTONIETTA Snider MD Work Phone: [facility] 12-14-2022 08:22-0400 Diastolic blood pressure 55 mm[Hg] ANTONIETTA Snider MD Work Phone: [facility] 12-14-2022 08:22-0400 Heart rate 73 /min ANTONIETTA Snider MD Work Phone: [facility] 12-14-2022 08:22-0400 Respiratory rate 15 /min ANTONIETTA Snider MD Work Phone: [facility] 12-14-2022 08:22-0400 SaO2% (BldA) [Mass fraction] 98 % ANTONIETTA Snider MD Work Phone: [facility] 12-14-2022 08:22-0400 Systolic blood pressure 101 mm[Hg] ANTONIETTA Snider MD Work Phone: [facility] 03-16-2022 10:35-0400 Body weight [address] Work Phone: [facility] 01-09-2022 13:17-0400 Body height 165.[address] Work Phone: [facility] 01-09-2022 13:17-0400 Body weight 97.[address] Work Phone: [facility] 11-22-2021 17:00-0400 Body weight 114.76 kg Fellow [address] Work Phone: [facility] 10-26-2021 09:52-0400 Body height 165.1 cm ANTONIETTA Snider MD Work Phone: [facility] 10-26-2021 09:52-0400 Body weight 118.98 kg ANTONIETTA Snider MD Work Phone: [facility] 10-26-2021 09:52-0400 Diastolic blood pressure 64 mm[Hg] ANTONIETTA Snider MD Work Phone: [facility] 10-26-2021 09:52-0400 Heart rate 79 /min ANTONIETTA Snider MD Work Phone: [facility] 10-26-2021 09:52-0400 SaO2% (BldA) [Mass fraction] 93 % ANTONIETTA Snider MD Work Phone: [facility] 10-26-2021 09:52-0400 Systolic blood pressure 118 mm[Hg] ANTONIETTA Snider MD Work Phone: [facility] 10-26-2021 08:23-0400 Body weight 113.[address] Work Phone: [facility] 09-25-2021 11:46-0400 Body height 165.[address] [facility] 09-25-2021 11:46-0400 Body weight 118.[address] [facility] 09-14-2021 09:03-0400 Diastolic blood pressure 69 mm[Hg] ANTONIETTA Sniedr MD Work Phone: [facility] 09-14-2021 09:03-0400 Systolic blood pressure 155 mm[Hg] ANTONIETTA Snider MD Work Phone: [facility] 09-14-2021 09:00-0400 Body height 165.1 cm ANTONIETTA Snider MD Work Phone: [facility] 09-14-2021 09:00-0400 Body weight 121.7 kg ANTONIETTA Snider MD Work Phone: [facility] 09-14-2021 09:00-0400 Heart rate 78 /min ANTONIETTA Snider MD Work Phone: [facility] 09-14-2021 09:00-0400 SaO2% (BldA) [Mass fraction] 97 % ANTONIETTA Snider MD Work Phone: [facility] 08-25-2021 11:44-0400 Body height 165.[address] [facility] 08-25-2021 11:44-0400 Body weight 119.[address] [facility] 08-07-2021 14:51-0400 Body height 165.1 cm Reed Leon MD Work Phone: [facility] 08-07-2021 14:51-0400 Body weight 121.56 kg Reed Leon MD Work Phone: [facility] 08-07-2021 14:51-0400 Diastolic blood pressure 88 mm[Hg] Reed Leon MD Work Phone: [facility] 08-07-2021 14:51-0400 Heart rate 98 /min Reed Leon MD Work Phone: [facility] 08-07-2021 14:51-0400 Respiratory rate 12 /min Reed Leon MD Work Phone: [facility] 08-07-2021 14:51-0400 SaO2% (BldA) [Mass fraction] 94 % Reed Leon MD Work Phone: [facility] 08-07-2021 14:51-0400 Systolic blood pressure 162 mm[Hg] Reed Leon MD Work Phone: [facility] Encounters Encounter Date Encounter Type Care Provider Facility Start: 01-25-2025 End: 01-25-2025 ambulatory PATTI VALDEZ Facility:[facility] Start: 01-25-2025 End: 01-25-2025 ambulatory Johanne SNIDER Facility:[facility] Start: 01-25-2025 End: 01-25-2025 ambulatory Johanne SNIDRE Facility:[facility] Start: 01-25-2025 End: 01-25-2025 ambulatory Johanne SNIDER Facility:[facility] Start: 09-28-2024 End: 09-29-2024 Refill Johanne Snider MD Work Phone: Cardiology Comment on above: Refill Request Start: 06-10-2024 End: 06-10-2024 ambulatory Johanne Snider MD Work Phone: Cardiology Comment on above: Heart failure with p reserved ejection fraction, unspecified HF chronicity (HCC) (Primary Dx); Coronary artery disease involving [place] coronary artery of [place] heart, unspecified whether angina present; Primary hypertension; Mixed hyperlipidemia; Obesity, Class III, BMI 40-49.9 (morbid obesity) (HCC); Type 2 diabetes mellitus with hyperglycemia, with long-term current use of insulin (HCC); S/P drug eluting coronary stent placement; Gastroesophageal reflux disease without esophagitis Start: 06-10-2024 End: 06-10-2024 Telemedicine consultation with patient Johanne Snider MD Work Phone: Cardiology Start: 11-10-2023 Refill Johanne ma MD Work Phone: Cardiology Comment on above: Refill Request Start: 06-18-2023 Nursing evaluation o f patient and report [facility] Research Coordinator Cardiology Comment on above: Research subject (Pr imary Dx) Start: 06-18-2023 Patient entered into trial [facility] Research Coordinator [facility] Start: 06-18-2023 End: 06-18-2023 Patient encounter procedure Johanne Snider MD Work Phone: Cardiology Comment on above: Heart failure with p reserved ejection fraction, unspecified HF chronicity (HCC) (Primary Dx); Coronary artery disease involving [place] coronary artery of [place] heart, unspecified whether angina present; Primary hypertension; Mixed hyperlipidemia; Obesity, Class III, BMI 40-49.9 (morbid obesity) (HCC); S/P drug eluting coronary stent placement; Type 2 diabetes mellitus with hyperglycemia, with long-term current use of insulin (HCC); Gastroesophageal reflux disease without esophagitis Start: 12-27-2022 Refill Johanne ma MD Work Phone: Cardiology Comment on above: Rx Refills Start: 12-26-2022 Refill Johanne ma MD Work Phone: Cardiology Comment on above: Rx Refills Start: 12-14-2022 End: 12-14-2022 Patient encounter procedure Johanne Snider MD Work Phone: Cardiology Comment on above: Heart failure with p reserved ejection fraction, unspecified HF chronicity (HCC) (Primary Dx); Coronary artery disease involving [place] coronary artery of [place] heart, unspecified whether angina present; Primary hypertension; Mixed hyperlipidemia; Obesity, Class III, BMI 40-49.9 (morbid obesity) ([facility]); S/P drug eluting coronary stent placement; Type 2 diabetes mellitus with hyperglycemia, with long-term current use of insulin ([facility]); Gastroesophageal reflux disease without esophagitis Start: 07-30-2022 [facility] Work Phone: Neurology Comment on above: cmn Start: 07-12-2022 [facility] Work Phone: Neurology Comment on above: CMN Start: 03-16-2022 End: 03-16-2022 ambulatory Delmi Blue YESENIA Work Phone: General Surgery Comment on above: BMI 30.0-30.9,adult (Primary Dx); Dietary counseling Start: 03-16-2022 End: 03-16-2022 Telemedicine consultation with patient Delmi Blue YESENIA Work Phone: [facility] Start: 02-18-2022 Refill Reed aponte MD Work Phone: Cardiology Comment on above: Refill Request Start: 01-29-2022 Encounter for genera l adult medical examination without abnormal findings DR PATTI VALDEZ [facility] Start: 01-09-2022 End: 01-09-2022 ambulatory Lisbet [...] 11-22-2021 Admission to same day surgery center Arturo Fairchild Main Work Phone: General Surgery Comment on above: Bariatric surgery [facility] (Primary Dx) Start: 11-22-2021 End: 11-22-2021 Telemedicine consultation with patient Arturo Fairchild Main Work Phone: [facility] Start: 11-21-2021 Telephone encounter Kiah [...] with patient Thad Morgan MD Work Phone: [facility] Start: 11-10-2021 Telephone encounter Rhonda Barnard RN General Surgery Comment on above: Preparations For Singh clarence Start: 11-09-2021 Telephone encounter Rhonda Barnard RN General Surgery Comment on above: Schedule Surgery Counseling Start: 11-08-2021 Admission to [facility] Rhonda Barnard RN General Surgery Comment on above: Surgery Start: 11-08-2021 E-mail encounter fro m caregiver Rhonda Barnard RN [facility] Start: 11-08-2021 Telephone encounter Rhonda Barnard RN General Surgery Comment on above: BMI Follow Up Start: 10-26-2021 End: 10-26-2021 Patient encounter procedure Johanne Snider MD Work Phone: Cardiology Comment on above: Heart failure with p reserved ejection fraction, unspecified HF chronicity (HCC) (Primary Dx); Primary hypertension; Mixed hyperlipidemia; Obesity, Class III, BMI 40-49.9 (morbid obesity) (HCC); Coronary artery disease involving [place] coronary artery of [place] heart, unspecified whether angina present; S/P drug eluting coronary stent placement; Type 2 diabetes mellitus with hyperglycemia, with long-term current use of insulin (HCC); Gastroesophageal reflux disease without esophagitis Start: 10-26-2021 End: 10-26-[address] Work Phone: General Surgery Comment on above: BMI 40.0-44.9, adult (HCC) (Primary Dx); Dietary counseling Start: 10-26-2021 End: 10-26-2021 Telemedicine consultation with patient Delmi Mirza PATTERSON Work Phone: [facility] Start: 10-24-2021 End: 10-24-2021 ambulatory Soo Vyas [employer] WORKER.RETAIL DEPARTMENT MANAGER Work Phone: Neurology Comment on above: RAYMUNDO (obstructive sle ep apnea) (Primary Dx); Vitamin D deficiency Start: 10-24-2021 End: 10-24-2021 Telemedicine consultation with patient Soo Vyas SILVER SPRAY WORKER.RETAIL DEPARTMENT MANAGER Work Phone: [facility] Start: 10-20-2021 ambulatory Reed aponte MD Work Phone: Cardiology Comment on above: Entresto Start: 10-05-2021 End: 10-05-2021 ambulatory Reed Leon MD Work Phone: Cardiology Comment on above: Heart failure with p reserved ejection fraction, unspecified HF chronicity (HCC) (Primary Dx) Start: 10-05-2021 End: 10-05-2021 Telemedicine consultation with patient Reed Leon MD Work Phone: [facility] Start: 09-28-2021 End: 09-29-[address] PATTI VALDEZ Facility:[facility] Start: 09-25-2021 End: 09-25-[address] General Surgery Comment on above: Diabetes mellitus ty pe 2 in obese (HCC) (Primary Dx); Dietary counseling and surveillance Start: 09-25-2021 End: 09-25-2021 Telemedicine consultation with patient Danuta Fuentes RD [facility] Start: 09-20-2021 Telephone encounter Johanne [...] (morbid obesity) (HCC); Coronary artery disease involving [place] coronary artery of [place] heart, unspecified whether angina present; S/P drug [...] consultation with patient Danuta Fuentes RD [facility] Start: 08-18-2021 Telephone encounter Evangelist Lepe RN NOC Comment on above: Follow Up Phone Call ( Follow Up Call) Start: 08-16-[address] PATTI VALDEZ Facility :[facility] Start: 08-15-[address] PATTI VALDEZ Facility :[facility] Start: 08-14-2021 Telephone encounter Seda GRECO Comment on above: Follow Up Phone Call ([facility] care discharge follow up-1st attempt-no contact-left vm) Start: 08-12-2021 Telephone encounter Paris franks MD [...] Speci men Type: BLOOD SPECIMEN Ordering Facility: [facility] Address: [facility] [place] [address] Performed By: #### T [id number] #### [facility] CLIA [id number] [address] [place] [address] [address] Start: 10-19-2021 Adult depression screening assessment [...] Treatment Date Care Activity Detail Author Start: 06-26-2033 Urine microalbumin profile DTaP,Tdap,Td Vaccine (2 - Td or Tdap) [facility] Start: 01-25-2025 End: 01-25-2025 ambulatory 01/25/2025 11:30 AM EDT Results Only [facility] [address] [place] [address] Heart failure with preserved ejection fraction, unspecified HF chronicity (HCC) [I50.30] [facility] Comment on above: Heart failure with preserved ejection fr action, unspecified HF chronicity (HCC) [I50.30] Start: 01-25-2025 End: 01-25-2025 Patient encounter procedure Cardiology Comment on above: Heart failure with preserved ejection fr action, unspecified HF chronicity (HCC) [I50.30] Start: 12-08-2024 End: 03-09-2025 Basic metabolic 2000 panel - Serum or Plasma BASIC METABOLIC PANEL Lab Routine Heart failure with preserved ejection fraction, unspecified HF chronicity (HCC) Coronary artery disease involving [place] coronary artery of [place] heart, unspecified whether angina present Primary hypertension Mixed hyperlipidemia Obesity, Class III, BMI 40-49.9 (morbid obesity) (HCC) Type 2 diabetes mellitus with hyperglycemia, with long-term current use of insulin (HCC) S/P drug eluting coronary stent placement Gastroesophageal reflux disease without esophagitis Expected: 12/08/2024, Expires: 03/09/2025 [facility] Comment on above: Expected: 12/08/2024, Expires: Start: 12-08-2024 End: 06-10-2025 EXERCISE STRESS ECG METABOLIC (WITHOUT IMAGING) EXERCISE STRESS ECG METABOLIC (WITHOUT IMAGING) Cardiology Routine Heart failure with preserved ejection fraction, unspecified HF chronicity (HCC) Coronary artery disease involving [place] coronary artery of [place] heart, unspecified whether angina present Primary hypertension Mixed hyperlipidemia Obesity, Class III, BMI 40-49.9 (morbid obesity) (HCC) Type 2 diabetes mellitus with hyperglycemia, with long-term current use of insulin (HCC) S/P drug eluting coronary stent placement Gastroesophageal reflux disease without esophagitis Expected: 12/08/2024, Expires: 06/10/2025 [facility] Comment on above: Expected: 12/08/2024, Expires: Start: 12-08-2024 End: 03-09-2025 Lipid 1996 panel - Serum or Plasma LIPID PANEL BASIC Lab Routine Heart failure with preserved ejection fraction, unspecified HF chronicity (HCC) Coronary artery disease involving [place] coronary artery of [place] heart, unspecified whether angina present Primary hypertension Mixed hyperlipidemia Obesity, Class III, BMI 40-49.9 (morbid obesity) (HCC) Type 2 diabetes mellitus with hyperglycemia, with long-term current use of insulin ([facility]) S/P drug eluting coronary stent placement Gastroesophageal reflux disease without esophagitis Expected: 12/08/2024, Expires: 03/09/2025 [facility] Comment on above: Expected: 12/08/2024, Expires: Start: 12-08-2024 End: 03-09-2025 Natriuretic peptide.B prohormone N-Terminal [Mass/volume] in Serum or Plasma NT PRO BNP Lab Routine Heart failure with preserved ejection fraction, unspecified HF chronicity (HCC) Coronary artery disease involving [place] coronary artery of [place] heart, unspecified whether angina present Primary hypertension Mixed hyperlipidemia Obesity, Class III, BMI 40-49.9 (morbid obesity) (HCC) Type 2 diabetes mellitus with hyperglycemia, with long-term current use of insulin ([facility]) S/P drug eluting coronary stent placement Gastroesophageal reflux disease without esophagitis Expected: 12/08/2024, Expires: 03/09/2025 [facility] Comment on above: Expected: 12/08/2024, Expires: Start: 06-18-2024 BP Controlled (<130/80) BP Controlled (<130/80) [facility] Start: 12-15-2023 BP CONTROLLED (<130/80) BP CONTROLLED (<130/80) [facility] Start: 2023 RSV Vaccine (1 - 1-dose 60+ series) RSV Vaccine (1 - 1-dose 60+ series) [facility] Start: 2023 RSV Vaccine (1 - Risk 60-74 years 1-dose series) RSV Vaccine (1 - Risk 60-74 years 1-dose series) [facility] Start: 05-20-2023 Behavioral Health Screening Behavioral Health Screening [facility] Start: 05-20-2023 Depression Assessment Depression Assessment [facility] Start: 01-18-2023 Influenza vaccination INFLUENZA (#1) [facility] Start: 12-11-2022 Adult depression screening assessment DEPRESSION SCREENING [facility] Start: 11-13-2022 BP CONTROLLED (<130/80) BP CONTROLLED (<130/80) [facility] Start: 10-26-2022 BP CONTROLLED (<130/80) BP CONTROLLED (<130/80) [facility] Start: 10-26-2022 Hepatitis B surface antibody level LDL CHOLESTEROL [facility] Start: 10-19-2022 Adult depression screening assessment DEPRESSION SCREENING [facility] Start: 09-07-2022 Adult depression screening assessment DEPRESSION SCREENING [facility] Start: 08-10-2022 PNEUMOCOCCAL (2 - PCV) PNEUMOCOCCAL (2 - PCV) [facility] Start: 08-10-2022 Pneumococcal vaccination Pneumococcal Vaccine (2 of 2 - PCV) [facility] Start: 08-10-2022 Pneumococcal Vaccine: 50+ (2 of 2 - PCV) Pneumococcal Vaccine: 50+ (2 of 2 - PCV) [facility] Start: 05-20-2022 DEPRESSION ASSESSMENT DEPRESSION ASSESSMENT [facility] Start: 02-15-2022 Hepatitis B surface antibody level LDL CHOLESTEROL [facility] Start: 02-13-2022 Hemoglobin A1c measurement HbA1C [facility] Start: 02-13-2022 Hemoglobin A1c/Hemoglobin.total in Blood HBA1C [facility] Start: 01-18-2022 Influenza vaccination INFLUENZA (#1) [facility] Start: 12-08-2021 COVID-19 VACCINE (4 - Booster for Pfizer series) COVID-19 VACCINE (4 - Booster for Pfizer series) [facility] Start: 11-08-2021 Hemoglobin A1c/Hemoglobin.total in Blood HBA1C [facility] Start: 10-24-2021 End: 12-24-2021 VITAMIN D 25 HYDROXY VITAMIN D 25 HYDROXY Lab Routine Vitamin D deficiency Expected: 10/24/2021, Expires: 12/24/2021 [facility] Work Phone: Comment on above: Expected: 10/24/2021, Expires: Start: 10-03-2021 COVID-19 VACCINE (4 - Booster for Pfizer series) COVID-19 VACCINE (4 - Booster for Pfizer series) [facility] Start: 10-03-2021 COVID-19 VACCINE (4 - Pfizer series) COVID-19 VACCINE (4 - Pfizer series) [facility] Start: 09-14-2021 End: 11-14-2021 Basic metabolic 2000 panel - Serum or Plasma BASIC METABOLIC PNL Lab Routine Acute on chronic heart failure with preserved ejection fraction (HCC) Coronary artery disease involving [place] coronary artery of [place] heart, unspecified whether angina present S/P drug eluting coronary stent placement Obesity, Class III, BMI 40-49.9 (morbid obesity) (HCC) Type 2 diabetes mellitus with hyperglycemia, with long-term current use of insulin (HCC) Primary hypertension Mixed hyperlipidemia Gastroesophageal reflux disease without esophagitis Expected: 09/14/2021, Expires: 11/14/2021 [facility] Work Phone: Comment on above: Expected: 09/14/2021, Expires: 2 Start: 09-14-2021 End: 11-14-2021 LIPID PANEL BASIC LIPID PANEL BASIC Lab Routine Acute on chronic heart failure with preserved ejection fraction (HCC) Coronary artery disease involving [place] coronary artery of [place] heart, unspecified whether angina present S/P drug eluting coronary stent placement Obesity, Class III, BMI 40-49.9 (morbid obesity) (HCC) Type 2 diabetes mellitus with hyperglycemia, with long-term current use of insulin ([facility]) Primary hypertension Mixed hyperlipidemia Gastroesophageal reflux disease without esophagitis Expected: 09/14/2021, Expires: 11/14/2021 [facility] Work Phone: Comment on above: Expected: 09/14/2021, Expires: 2 Start: 09-14-2021 End: 11-14-2021 Natriuretic peptide.B prohormone N-Terminal [Mass/volume] in Serum or Plasma NT PRO BNP Lab Routine Acute on chronic heart failure with preserved ejection fraction (HCC) Coronary artery disease involving [place] coronary artery of [place] heart, unspecified whether angina present S/P drug eluting coronary stent placement Obesity, Class III, BMI 40-49.9 (morbid obesity) ([facility]) Type 2 diabetes mellitus with hyperglycemia, with long-term current use of insulin ([facility]) Primary hypertension Mixed hyperlipidemia Gastroesophageal reflux disease without esophagitis Expected: 09/14/2021, Expires: 11/14/2021 [facility] Work Phone: Comment on above: Expected: 09/14/2021, Expires: 2 Start: 07-01-2021 Colonoscopy COLONOSCOPY [facility] Start: 07-01-2021 COLORECTAL CANCER SCREENING COLORECTAL CANCER SCREENING [facility] Start: 07-01-2021 Screening for malignant neoplasm of colon [facility] Start: 06-24-2021 Adult depression screening assessment DEPRESSION SCREENING [facility] Start: 05-20-2021 DEPRESSION ASSESSMENT DEPRESSION ASSESSMENT [facility] Start: 2013 SHINGRIX VACCINE (1 of 2) SHINGRIX VACCINE (1 of 2) [facility] Start: 2008 COLOGUARD (FIT-DNA) COLOGUARD (FIT-DNA) [facility] Start: [address] COLONOGRAPHY [facility] Start: 2008 FECAL OCCULT BLOOD FECAL OCCULT BLOOD [facility] Start: 2008 Screening for malignant neoplasm of colon [facility] Start: 2008 SIGMOIDOSCOPY SIGMOIDOSCOPY [facility] Start: 2003 Mammography MAMMOGRAM [facility] Start: 2003 Screening for malignant neoplasm of breast Mammogram Screening [facility] Start: 1993 HPV TESTING HPV TESTING [facility] Start: 1993 Screening for malignant neoplasm of cervix HPV Testing [facility] Start: 1984 PAP TESTING PAP TESTING [facility] Start: 1984 Screening for malignant neoplasm of cervix [facility] Start: 1982 HEPATITIS B (1 of 3 - Risk 3-dose series) HEPATITIS B (1 of 3 - Risk 3-dose series) [facility] Start: 1982 Urine microalbumin profile [facility] Start: 1981 ANNUAL PCP TEAM CHRONIC DISEASE VISIT ANNUAL PCP TEAM CHRONIC DISEASE VISIT [facility] Start: 1981 Anxiety Screening Anxiety Screening [facility] Start: 1981 BP CONTROLLED (<130/80) BP CONTROLLED (<130/80) [facility] Start: 1981 Depression Screening Depression Screening [facility] Start: 1981 HEPATITIS C SCREENING HEPATITIS C SCREENING [facility] Start: 1981 Hepatitis C screening Hepatitis C Screening [facility] Start: 1981 HIV SCREENING HIV SCREENING [facility] Start: 1981 HIV screening HIV Screening [facility] Start: 1979 ONE PNEUMOVAX PRIOR TO AGE 65 ONE PNEUMOVAX PRIOR TO AGE 63 [facility] Start: 1973 3 comp foot exam completed DIABETIC FOOT EXAM [facility] Start: 1973 Diabetic foot examination Diabetic Foot Exam [facility] Start: 1973 Glaucoma screening Dilated Retinal Exam [facility] Start: 1973 Hepatitis B screening URINE ALBUMIN:CREATININE RATIO [facility] Start: 1973 Hepatitis C antibody, confirmatory test DILATED RETINAL EXAM [facility] Start: 1963 HEPATITIS B (1 of 3 - 3-dose series) HEPATITIS B (1 of 3 - 3-dose series) [facility] End: 06-10-2025 Echocardiography ECHO Cardiology Routine Heart failure with preserved ejection fraction, unspecified HF chronicity (HCC) Coronary artery disease involving [place] coronary artery of [place] heart, unspecified whether angina present Primary hypertension Mixed hyperlipidemia Obesity, Class III, BMI 40-49.9 (morbid obesity) (HCC) Type 2 diabetes mellitus with hyperglycemia, with long-term current use of insulin (HCC) S/P drug eluting coronary stent placement Gastroesophageal reflux disease without esophagitis 1 Occurrences starting 06/10/2024 until 06/10/2025 [facility] Work Phone: Comment on above: 1 Occurrences starting 06/10/2024 until 06/10/2025 End: 12-15-2023 EXERCISE STRESS ECG METABOLIC (WITHOUT IMAGING) EXERCISE STRESS ECG METABOLIC (WITHOUT IMAGING) Cardiology Routine Heart failure with preserved ejection fraction, unspecified HF chronicity (HCC) Coronary artery disease involving [place] coronary artery of [place] heart, unspecified whether angina present Primary hypertension Mixed hyperlipidemia Obesity, Class III, BMI 40-49.9 (morbid obesity) (HCC) S/P drug eluting coronary stent placement Type 2 diabetes mellitus with hyperglycemia, with long-term current use of insulin (HCC) Gastroesophageal reflux disease without esophagitis 1 Occurrences starting 12/14/2022 until 12/15/2023 [facility] Work Phone: Comment on above: 1 Occurrences starting 12/14/2022 until 12/15/2023 [facility] Immunizations Immunization Date Immunization Notes Care Provider Fa cili 08-10-2021 pneumococcal polysaccharide vaccine, 23 valent Paris Long MD Work Phone: [facility] 08-08-2021 COVID-19 vaccine, ag e 12+ yr ([employer]) Paris Long MD Work Phone: [facility] Payers Date Payer Category Payer Blue [employer] Blue [employer] BLUE CARD PPO OOS [id number] 2022 Unknown [employer]M BLUE CARD PPO OOS [id number] 2022-Present [phone] [address] [place] [address] PPO [id number] 2022 Unknown [id number] 2020 Private Health Insurance [facility] CHOICE PLUS [id number] 2020-Present [phone] [address] [place] [address] HMO [id number] 2020 Private Health Insurance [facility] CHOICE PLUS [id number] 2020-Present [phone] [address] [place] [address] HMO [id number] 1963 Unknown [id number] 1963 Unknown [id number] 1963 Unknown [id number] 1963 Unknown [id number] 1963 Unknown [id number] 1963 Unknown [id number] 1963 Unknown [id number] 1963 Unknown [id number] 1959 Private Health Insurance [id number] 1959 Self-pay [id number] Social History Date Type Detail Facility Start: 07-14-2020 End: 06-18-2023 Tobacco smoking status NHIS Ex-smoker [facility] Work Phone: Start: 07-14-1969 End: 11-18-1983 History of tobacco use Current smoker [facility] Work Phone: Start: 06-08-2020 End: 07-14-2020 Cigarettes smoked current (pack per day) - Reported 0.5 [facility] Start: 07-14-2020 End: 06-18-2023 Tobacco use and exposure Smokeless tobacco non-user [facility] Work Phone: Start: 08-07-2021 End: 06-10-2024 Alcohol intake Current drinker of alcohol (finding) [facility] Start: 08-12-2020 History SDOH Alcohol Comment occasionally [facility] Start: 1965 Sex Assigned At Female C [facility] Start: 07-28-2021 End: 11-14-2021 Exposure to SARS-CoV-2 (event) Not sure [facility] Start: 08-03-2021 End: 08-13-2021 Exposure to SARS-CoV-2 (event) Unable to assess [facility] Start: 07-14-1969 End: 11-18-1983 History of tobacco use Cigarette Smoker [facility] Work Phone: Start: 06-08-2020 End: 12-14-2022 Tobacco use panel [facility] Adult Depression Screening Assessment 0 [facility] Start: 06-02-2020 Gender identity Identifies as female gender (finding) [facility] Start: 06-02-2020 Sexual orientation Heterosexual (keena white) [facility] Goals Date Patient Goal Desired Activity /State Personal health goal Functional Status Date Assessment Result Facility 11-16-2021 Are you deaf, or do you have serious difficulty hearing No 11/16/2021 4:25 PM Carissa Nina RN No [facility] 11-16-2021 Are you blind, or do you have serious difficulty seeing, even when wearing glasses No 11/16/2021 4:25 PM Carissa Nina, AUGUSTUS No [facility] 11-16-2021 Do you have serious difficulty walking or climbing stairs No 11/16/2021 4:25 PM Carissa Nina, AUGUSTUS [facility] 11-16-2021 Do you have difficul ty dressing or bathing No 11/16/2021 4:25 PM Carissa Nina, AUGSUTUS No [facility] 11-16-2021 Because of a physica l, mental, or emotional condition, do you have difficulty doing errands alone such as visiting a physician's office or shopping No 11/16/2021 4:25 PM Carissa Nina, AUGUSTSU No [facility] Mental Status Date Assessment Result Facility 11-16-2021 Because of a physica l, mental, or emotional condition, do you have serious difficulty concentrating, remembering, or making decisions No 11/16/2021 4:25 PM Carissa Nina, AUGUSTUS No [facility] Clinical Notes 08-07-2021 to 09-29-2024 Telephone Encounter - Nilda Jordan 09/29/2024 9:04 AM EDTTelephone Encounter - Nilda Jordan - 09/29/2024 9:04 AM Johanne Mason MD - 06/10/2024 8:53 AM ESTPatient Instructions Note Date & Type Note Facility 09-29-2024 Telephone encounter Note Call from patient requesting refill. Requested Prescriptions Pending Prescriptions Disp Refills ENTRESTO 24-26 mg tablet [Pharmacy Med Name: Entresto 24-26 MG Oral Tablet] 180 tablet 3 Sig: TAKE 1 TABLET BY MOUTH TWICE DAILY Patient last seen 06/10/2024 Nilda Jordan [facility] 09-29-2024 Miscellaneous Notes Call from patient requesting refill. Requested Prescriptions Pending Prescriptions Disp Refills ENTRESTO 24-26 mg tablet [Pharmacy Med Name: Entresto 24-26 MG Oral Tablet] 180 tablet 3 Sig: TAKE 1 TABLET BY MOUTH TWICE DAILY Patient last seen 06/10/2024 Nilda Jordan documented in this encounter [facility] 06-10-2024 Note HNO ID: [id number] Author: Johanne SNIDER MD Service: ? Author Type: Physician Type: Progress Notes Filed: 06/10/2024 09:37 Note Text: [facility] Nataly Watt Department of Cardiovascular Medicine [facility] Treatment and Recovery Section of Heart Failure and Transplantation Medicine PATIENT Angie Serra [address] [address] [facility] PRIMARY CARE PROVIDER Patti Valdez MD [address] [place] [address] VIRTUAL VISIT REFERRING PROVIDER Michael Maciel [address] [facility] [address] CHIEF COMPLAINT HFpEF HISTORY OF PRESENT ILLNESS Angie Serra is a pleasant 58 year old White female who comes to [facility] for evaluation and management of Consult. The patient has been referred by Michael Maciel MD; a copy of this note will be provided by way of shared medical record and/or via regular mail. The date of his first clinic visit with me is September 14, 2021. In summary, Angie Serra is a 56 y/o female from [place], [place] following up after hospitalization. Pt has [...] out. INTERVAL HISTORY Last visit's recommendations were: Continue to follow all other prescribed medical therapies and recommendations. Return to clinic in 12 months for follow up. Since last's visit, the [...] 2 in Obese Coronary Artery Disease Involving [place] Coronary Artery of [place] Heart S/P Drug Eluting Coronary Stent Placement Raymundo (Obstructive Sleep Apnea) Acute On Chronic Heart Failure With Preserved Ejection Fraction (Hcc) Heart Failure With Preserved Ejection Fraction (Hcc) Type 2 Diabetes Mellitus With Morbid Obesity (Hcc) Obesity CURRENT MEDICATIONS ENTRESTO 24-26 mg tablet TAKE 1 TABLET BY MOUTH TWICE DAILY multivit-min/iron/folic acid/K (BARIATRIC MULTIVITAMINS ORAL) Take 1 tablet by mouth once daily. aspirin, enteric coated (ASPIR-81) 81 mg EC tablet Take 1 tablet by mouth once daily. carvedilol (COREG) 12.5 [...] strap, head gear, humidity, tubing, lifetime supplies. G47.3 (more content not included)... [facility] 06-10-2024 History of Present illness Narrative Images from the original note were not included. [facility] Nataly Watt Department of Cardiovascular Medicine [facility] Failure Treatment and Recovery Section of Heart Failure and Transplantation Medicine PATIENT Angie Serra [address] [address] [facility] PRIMARY CARE PROVIDER Patti Valdez MD [address] [place] [address] VIRTUAL VISIT REFERRING PROVIDER Michael Maciel [address] [facility] [address] CHIEF COMPLAINT HFpEF HISTORY OF PRESENT ILLNESS Angie Serra is a pleasant 58 year old White female who comes to [facility] for evaluation and management of Consult. The patient has been referred by Michael Maciel MD; a copy of this note will be provided by way of shared medical record and/or via regular mail. The date of his first clinic visit with me is September 14, 2021. In summary, Angie Serra is a 56 y/o female from [place], [place] following up after hospitalization. Pt has [...] out. INTERVAL HISTORY Last visit's recommendations were: Continue to follow all other prescribed medical therapies and recommendations. Return to clinic in 12 months for follow up. Since last's visit, the [...] 2 in Obese Coronary Artery Disease Involving [place] Coronary Artery of [place] Heart S/P Drug Eluting Coronary Stent Placement Raymundo (Obstructive Sleep Apnea) Acute On Chronic Heart Failure With Preserved Ejection Fraction (Hcc) Heart Failure With Preserved Ejection Fraction (Hcc) Type 2 Diabetes Mellitus With Morbid Obesity (Hcc) Obesity CURRENT MEDICATIONS ENTRESTO 24-26 mg tablet TAKE 1 TABLET BY MOUTH TWICE DAILY multivit-min/iron/folic acid/K (BARIATRIC MULTIVITAMINS ORAL) Take 1 tablet by mouth once daily. aspirin, enteric coated (ASPIR-81) 81 mg EC tablet Take 1 tablet by mouth once daily. carvedilol (COREG) 12.5 [...] Social History Tobacco Use Smoking status: Former Current packs/day: 0.00 Average packs/day: 0.5 packs/day for 14.3 years (7.2 ttl pk-yrs) Types: Cigarettes Start date: 07/14/1969 Quit date: 11/1983 Years since quittin.5 Smokeless tobacco: Never Vaping Use Vaping status: Never Used Substance Use Topics Alcohol use: Yes Alcohol/week: [...] ALLERGIES No Known Allergies PATIENT ENTERED DATA 12/07/2022 06/14/2023 06/03/2024 PROMIS Global Health - (T-Scores - the mean of general population = 50. Five points is a clinically meaningful difference.) Physical T-Score 50.8 50.8 50.8 Mental T-Score 53.3 56 59 12/07/2022 06/14/2023 06/03/2024 PHQ-9 Score 4 2 1 12/07/2022 06/14/2023 06/03/2024 KCCQ-12 Scores Physical Limitation Score 100 (Class I Heart Failure ) 100 (Class I Heart Failure ) 91.67 (Class I Heart Failure ) Symptom Frequency Score 95.83 (Class I Heart Failure ) 95.83 (Class I Heart Failure ) 95.83 (Class I Heart Failure ) Quality of Life Score 87.5 (Good to Excellent Quality of Life) 100 (Good to Excellent Quality of Life) 100 (Good to Excellent Quality of Life) Social Limitation Score 100 (Class I Heart Failure) 100 (Class I Heart Failure) 100 (Class I Heart Failure) Overall Summary Score 95.83 (Class I Heart Failure ) 98.96 (Class I Heart Failure ) 96.88 (Class I Heart Failure ) PHYSICAL EXAMINATION There were no vitals taken for this visit. PERTINENT DIAGNOSTIC DATA COMPLETE BLOOD COUNT WBC [...] / 80 mmHg Rate Pressure Product (RPP): 97781 Peak RER: 1.25 [1.1 - 1.50] Peak [...] 0.73] IMPRESSION Angie Serra is a pleasant 58 year old White female who comes to [facility] for evaluation and management of Consult. The primary encounter diagnosis was Heart failure with preserved ejection fraction, unspecified HF chronicity ([facility]). Diagnoses of Coronary artery disease involving [place] coronary artery of [place] heart, unspecified whether angina present, Primary hypertension, Mixed hyperlipidemia, Obesity, Class III, BMI 40-49.9 (morbid obesity) ([facility]), Type 2 diabetes mellitus with hyperglycemia, with long-term current use of insulin ([facility]), S/P drug eluting coronary stent placement, and Gastroesophageal reflux disease without esophagitis were [...] significant weight already feeling great. Excellent functional capacity. [place] RECOMMENDATIONS Continue to follow all other prescribed medical therapies and recommendations. Return to clinic in 6 months for follow up with labs, echo, and MET to evaluate progression of cardiovascular disease. I have discussed with the patient and family and caregivers when present, in simple terms, the likely etiologies of the patient's condition, its pathophysiology, prognosis, current status, diagnostic modalities, and both basic and advanced therapeutic options. In addition, we discussed guideline-recommended lifestyle modifications such as diet, weight management, exercise, and abstinence of tobacco, alcohol, and illicit substances. Orders Placed This Encounter Basic Metabolic Panel - 6 Months Standing Status: Future Standing Expiration Date: 03/09/2025 NT Pro BNP - 6 Months Standing Status: Future Standing Expiration Date: 03/09/2025 Lipid Panel, Basic - 6 Months Standing Status: Future Standing Expiration Date: 03/09/2025 Scheduling Instructions: Patient must be Fasting 10-12 hours prior to having blood drawn. (Water is permitted) CARDIOVASCULAR MEDICINE OP FOLLOW UP APPT ORDER - 6 Months Standing Status: Future Standing Expiration Date: 06/10/2025 Order Specific Question: Schedule patient for follow up Answer: Yes Order Specific Question: Provider Answer: Johanne SNIDER [[id number]] Order Specific Question: CVM Section: Answer: Heart Failure Order Specific Question: Return: Answer: 6 months Order Specific Question: Type of follow up visit Answer: In-person Order Specific Question: Does consulting provider have [facility] Epic access? Answer: Yes Comments: Referred to Location has access to [facility] EMR ECHO - 6 Months Order Comments: ECHO ordered with the expected by date in 6 Months Standing Status: Future Standing Expiration Date: 06/10/2025 Order Specific Question: Disease / Condition: Answer: Heart Failure EXERCISE STRESS ECG METABOLIC (WITHOUT IMAGING) Order Comments: EXERCISE STRESS ECG METABOLIC (WITHOUT IMAGING) ordered with expected by date in 6 months Standing Status: Future Standing Expiration Date: 06/10/2025 [facility] STAFF PHYSICIAN NOTE OF PERSONAL INVOLVEMENT IN CARE I have communicated my name and active licensure. The patient s identity and physical location were verified at the time of this visit. Either the patient or their legal medical office representative has been informed of the risks and benefits of - and alternatives to - treatment through a remote evaluation and have consented to proceed with this evaluation remotely. I have personally performed a virtual diagnostic evaluation on this patient, including anamnesis, review of pertinent available medical records, and personal visualization and interpretation of pertinent available diagnostic data. I have spent 35 minutes in total time involved in the care of this patient. Greater than 50% of the time of this visit was spent in counseling and/or coordinating care for the patient, the nature of which is noted above. The health conditions of this patient carry a high risk of complications, morbidity, and/or mortality. This note was partially created using voice recognition software and is inherently subject to errors including those of syntax and sound-alike substitutions which may escape proofreading. In such instances, original meaning may be extrapolated by contextual derivation. For services provided on: June 10, 2024; 8:54 AM. Bethany Snider MD Staff, Section of Heart Failure and Transplantation Medicine [facility] Ari[facility] Treatment [facility] Recovery Nataly Watt Department of Cardiovascular Medicine [facility] emily [facility] Thor[facility] [place] [address] [place] Tel: [phone] Fax: [phone] Appt: [phone] documented in this encounter [facility] 06-18-2023 History of Present illness Narrative DATE: June 18, 2023 PT. NAME: Angie Serra [facility]#: [id number] IRB # [id number] PROTOCOL: Novel Clinical Utility of Retinal Imaging in Patients with Heart Failure: A Payroll Director Study Visit: BASELINE 1. [place] and/or Research Nurse explained the protocol to [...] OCTA Imaging completed? Yes - pre and [id number] Urine Sample obtained? Yes Time: 1145a Blood draw complete according to protocol? Yes Time: 105p Butterfly used in Right antecubital area. Blood drawn with vacutainer and labs drawn per protocol. Butterfly removed after blood draw and secured with sterile gauze. Patient tolerated procedure well. Vital signs can be found in nurses note. Robby Wells MSHarper documented in this encounter [facility] 06-18-2023 History of Present illness Narrative Images from the original note were not included. [facility] Nataly Watt Department of Cardiovascular Medicine [facility] Heart Failure Treatment and Recovery Section of Heart Failure and Transplantation Medicine PATIENT Angie Serra [address] PRIMARY CARE PROVIDER Patti Valdez MD [address] [place] [address] REFERRING PROVIDER Michael Maciel [address] [facility] [address] CHIEF COMPLAINT HFpEF HISTORY OF PRESENT ILLNESS Angie Serra is a pleasant 57 year old White female who comes to [facility] for evaluation and management of Consult. The patient has been referred by Michael Maciel MD; a copy of this note will be provided by way of shared medical record and/or via regular mail. The date of his first clinic visit with me is September 14, 2021. In summary, Angie Serra is a 56 y/o female from [place], [place] following up after hospitalization. Pt has [...] 2 in Obese Coronary Artery Disease Involving [place] Coronary Artery of [place] Heart S/P Drug Eluting Coronary Stent Placement [...] / 80 mmHg Rate Pressure Product (RPP): 45612 Peak RER: 1.25 [1.1 - 1.50] Peak [...] year old White female who comes to [facility] for evaluation and management of Consult. The primary encounter diagnosis was Heart failure with preserved ejection fraction, unspecified HF chronicity (HCC). Diagnoses of Coronary artery disease involving [place] coronary artery of [place] heart, unspecified whether angina present, Primary hypertension, Mixed hyperlipidemia, Obesity, Class III, BMI 40-49.9 (morbid obesity) ([facility]), S/P drug eluting coronary stent placement, Type 2 diabetes mellitus with hyperglycemia, with long-term current use of insulin ([facility]), and Gastroesophageal reflux disease without esophagitis [...] CVM Order Specific Question: Appt Type Answer: EST Online E&M Level 3 ($667) [id number] Order Specific Question: Date of Appt Answer: Other/Add to Comments Comments: 12 month Cetirizine (ZYRTEC) 10 mg cap Sig: Take 1 capsule by mouth once daily. multivit-min/iron/folic acid/K (BARIATRIC MULTIVITAMINS ORAL) Sig: Take 1 tablet by mouth once daily. [facility] STAFF PHYSICIAN NOTE OF PERSONAL INVOLVEMENT IN CARE I have personally performed a [id number]-hsxy diagnostic evaluation on this patient, including anamnesis [...] Recovery Nataly Watt Department of Cardiovascular Medicine [facility] and [facility], Vascular [facility] [place] [address] [place] Tel: [phone] Fax: [phone] Appt: [phone] documented in this encounter [facility] 12-27-2022 Miscellaneous Notes Call from pharmacy requesting refill. Requested Prescriptions Pending Prescriptions Disp Refills aspirin, enteric coated (ASPIR-81) 81 mg EC tablet 90 tablet 3 Sig: Take 1 tablet by mouth once daily. Patient last seen 12/14/2022 Radha Morales documented in this encounter [facility] 12-26-2022 Miscellaneous Notes Call from pharmacy requesting refill. Requested Prescriptions Pending Prescriptions Disp Refills sacubitril-valsartan (ENTRESTO) 24-26 mg tablet 180 tablet 3 Sig: Take 1 tablet by mouth twice daily. Patient last seen 12/14/2022 Radha Andrew documented in this encounter [facility] 12-14-2022 Instructions Johanne Snider MD - 12/14/2022 9:06 AM EDT Will resume Aspirin 81 mg daily (enteric coated). Continue to follow all other prescribed medical therapies and recommendations. Return to clinic in 6 months for follow up with a metabolic exercise test. documented in this encounter [facility] 12-14-2022 History of Present illness Narrative Images from the original note were not included. [facility] Nataly Watt Department of Cardiovascular Medicine [facility] for Heart Failure Treatment and Recovery Section of Heart Failure and Transplantation Medicine PATIENT Angie Serra [address] PRIMARY CARE PROVIDER Patti Valdez MD [address] [place] [address] REFERRING PROVIDER Michael Maciel [address] [facility] [address] CHIEF COMPLAINT Consult HISTORY OF PRESENT ILLNESS Angie Serra is a pleasant 56 year old White female who comes to [facility] for evaluation and management of Consult. The patient has been referred by Michael Maciel MD; a copy of this note will be provided by way of shared medical record and/or via regular mail. The date of his first clinic visit with me is September 14, 2021. In summary, Angie Serra is a 56 y/o female from [place], [place] following up after hospitalization. Pt has [...] in Obese (Hcc) Coronary Artery Disease Involving [place] Coronary Artery of [place] Heart S/P Drug Eluting Coronary Stent Placement [...] 1 tablet by mouth daily with breakfast. pantoprazole DR (PROTONIX) 40 mg tablet Take 1 tablet by mouth once daily. WELCHOL 625 mg tablet 1,875 mg once daily. SUMAtriptan (IMITREX) 100 mg tablet take 1 tablet by mouth AT ONSET OF HEADACHE may repeat in 2 hours... (REFER TO PRESCRIPTION NOTES). aspirin, enteric coated (ASPIR-81) 81 mg EC tablet Take 1 tablet by mouth once daily. CPAP Please Expedite for upcoming surgery. Settings 5 - 15 cm H2O, suitable mask per pt preference, chin strap, head gear, humidity, tubing, lifetime supplies. G47.33 RAYMUNDO PAST MEDICAL HISTORY PAST MEDICAL HISTORY Diagnosis [...] Smoking status: Former Packs/day: 0.50 Years: 2.00 Total pack years: 1.00 Types: Cigarettes Start date: 07/14/1969 Quit date: 11/1983 Years since quittin.0 Smokeless tobacco: Never Vaping Use Vaping Use: [...] Five points is a clinically meaningful difference.) 09/07/2021 12/11/2021 12/07/2022 Physical T-Score 47.7 42.3 50.8 Mental T-Score 50.8 53.3 53.3 PHQ-9 10/19/2021 12/11/2021 12/07/2022 Score 3 6 4 KCCQ-12 Scores 09/07/2021 10/19/2021 12/07/2022 Physical Limitation Score 87.5 (Class I Heart Failure ) 87.5 (Class I Heart Failure ) 100 (Class I Heart Failure ) Symptom Frequency Score 79.17 (Class II Heart Failure ) 75 (Class II Heart Failure ) 95.83 (Class I Heart Failure ) Quality of Life Score 50 (Class III Heart Failure) 75 (Class II Heart Failure ) 87.5 (Class I Heart Failure) Social Limitation Score 75 (Class II Heart Failure) 83.33 (Class II Heart Failure) 100 (Class I Heart Failure) Overall Summary Score 72.92 (Class II Heart Failure ) 80.21 (Class II Heart Failure ) 95.83 (Class I Heart Failure ) PHYSICAL EXAMINATION BP 101/55 (BP Site: Left Arm, BP Position: Sitting, BP Cuff Size: Regular Adult) Pulse 73 Resp 15 Ht 165.1 cm (5' 5 ) SpO2 98% BMI 32.28 kg/m CONSTITUTIONAL: Well appearing, in no acute [...] year old White female who comes to [facility] for evaluation and management of Consult. The primary encounter diagnosis was Heart failure with preserved ejection fraction, unspecified HF chronicity ([facility]). Diagnoses of Coronary artery disease involving keweenaw coronary artery of ke[place] heart, unspecified whether angina present, Primary hypertension, Mixed hyperlipidemia, Obesity, Class III, BMI 40-49.9 (morbid obesity) ([facility]), S/P drug eluting coronary stent placement, Type 2 diabetes mellitus with hyperglycemia, with long-term current use of insulin ([facility]), and Gastroesophageal reflux disease without esophagitis [...] has lost significant weight already feeling great. RECOMMENDATIONS Will resume Aspirin 81 mg daily (enteric coated); she will derive life expectancy benefit with this medication given her coronary artery disease. Continue to follow all other prescribed medical therapies and recommendations. Return to clinic in 6 months for follow up with a metabolic exercise test. I have discussed with the patient and [...] Order Specific Question: Provider Answer: Johanne SNIDER [[id number]] Order Specific Question: CVM Section: Answer: Heart Failure Order Specific Question: Testing Options: Answer: Stress ECG Order Specific Question: Return: Answer: 6 months traMADol (ULTRAM) 50 mg tablet Sig: Take 50 mg by mouth three times daily as needed. carvedilol (COREG) 12.5 mg tablet Sig: Take 1 tablet by mouth twice daily with meals. aspirin, enteric coated (ASPIR-81) 81 mg EC tablet Sig: Take 1 tablet by mouth once daily. Dispense: 90 tablet Refill: 3 EXERCISE STRESS ECG METABOLIC (WITHOUT IMAGING) Standing Status: Future Standing Expiration Date: 12/15/2023 [facility] STAFF PHYSICIAN NOTE OF PERSONAL INVOLVEMENT IN CARE I have personally performed a ohfm-wr-mrea diagnostic evaluation on this patient, including anamnesis [...] by contextual derivation. For services provided on: December 14, 2022; 8:48 AM. Bethany Snider MD Staff, Section of Heart Failure and Transplantation Medicine [facility] Nataly Watt Department of Cardiovascular Medicine [facility] Heart, Vascular and Thoracic [place] [address] [place] Tel: [phone] Fax: [phone] Appt: [phone] documented in this encounter [facility] 07-30-2022 History of Present illness Narrative CMN RECEIVED BY [employer] VIA FAX, COMPLETED, AND PLACED IN PROVIDER MAILBOX FOR SIGNATURE Inga Enriquez Climatology Teacher II July 30, 2022 [employer] SENDING CMN: [employer] SIGNED AND DATED CMN, FAXED TO DME & CONFIRMATION PAGE RECEIVED: 07/31/2022 documented in this encounter [facility] 07-12-2022 History of Present illness Narrative CMN RECEIVED BY [employer] VIA FAX, COMPLETED, AND PLACED IN PROVIDER MAILBOX FOR SIGNATURE Osman Hutchison, Administration Assistance 07/12/22 [employer] SENDING CMN: LACIE SIGNED AND DATED CMN, FAXED TO DME & CONFIRMATION PAGE RECEIVED: 07/13/22 documented in this encounter [facility] 03-16-[address] - [...] try softer vegetables such as broccoli florets, [place] lettuce, red-leaf lettuce or [place] lettuce. Remember to chew vegetables thoroughly (chew 25 times) and swallow only when chewing has made it into a mushy pureed consistency. If you have trouble with gas, avoid eating gas-producing vegetables such as onions, cauliflower, garlic, scallions, leeks, [place] sprouts and cabbage. Avoid starchy vegetables such as potatoes (sweet and white), yams, yucca, plantain and corn at this time. Vitamin/minerals: Take daily multivitamin with 200 % daily value for all vitamin/minerals plus VIt D3 3,000 IU, Vit B12 500 mcg, Iron 45 mg and calcium citrate 9338-4880 mg/day . It is okay to use combination vitamin/minerals to reduce pill volume. Page 43 of Your Guide to Surgery Nutrition Monitoring & Evaluation: BMI < 30 Criteria: Patient update, weight check Need for Follow up: 3 months, scheduling documented in this encounter [facility] 03-16-2022 History of Present illness Narrative The [facility] Nutrition Therapy: Virtual Consult - Re-assessment [...] daily multivitamin complete capsule (Bariatric Fusion OR Racktivity)and calcium citrate 4464-8545 mg/day 2. Protein goal: 73-91 grams protein/day [...] with raw vegetables Breakfast: protein shake Snack: Urdu yogurt Lunch: meat OR cottage cheese Snack: [...] Rate: 1464 Energy needs for weight loss 0918-1624 (15-20 kcal/kg CBW) Protein needs: 82 grams [...] try softer vegetables such as broccoli florets, [place] lettuce, red-leaf lettuce or [place] lettuce. Remember to chew vegetables thoroughly (chew 25 times) and swallow only when chewing has made it into a mushy pureed consistency. If you have trouble with gas, avoid eating gas-producing vegetables such as onions, cauliflower, garlic, scallions, leeks, [place] sprouts and cabbage. Avoid starchy vegetables such as potatoes (sweet and white), yams, yucca, plantain and corn at this time. Vitamin/minerals: Take daily multivitamin with 200 % daily value for all vitamin/minerals plus VIt D3 3,000 IU, Vit B12 500 mcg, Iron 45 mg and calcium citrate 3788-7051 mg/day . It is okay to use combination vitamin/minerals to reduce pill volume. Page 43 of Your Guide to Surgery Nutrition Monitoring & Evaluation: BMI < 30 Criteria: Patient update, weight check Need for Follow up: 3 months, scheduling Referred/Supervised by: Self/Cetin MNT Billing Type: Re-assess/15 min 1 unit Signed by: Delmi Blue RDN, SVETA, ANDREWN documented in this encounter [facility] 02-19-2022 Miscellaneous Notes Pharmacy electronic RX request to request a refill on the medication(s) below: Requested Prescriptions Pending Prescriptions Disp Refills ezetimibe (ZETIA) 10 mg tablet [Pharmacy Med Name: EZETIMIBE 10 MG TABLET] 90 tablet 3 Sig: take 1 tablet by mouth once daily PHARMACY NAME [facility] / PHONE NUMBER: Pickup RX Physician's Name: Reed Leon M.D. Last seen in office: 10/05/21 If last appointment greater than one year or no follow up scheduled, sent to schedulers Patricia Rene 02/19/2022 documented in this encounter [facility] 01-09-[address] - [...] daily multivitamin complete capsule (Bariatric Fusion OR Racktivity)and calcium citrate 0980-5512 mg/day 2. Protein goal: 73-91 grams protein/day 3. Fluid goal: 64 ounces per day (no carbonation, caffeine, calories, alcohol) 4. Exercise goal: increase as tolerated to goal of 200 minutes/week combination cardiovascular and strength training exercise. 5. Practice mindful eating habits-take small portions, eat slowly, chew thoroughly Patient is to follow-up: 2 months to access adherence to goals, [phone] documented in this encounter [facility] 01-09-2022 History of Present illness Narrative [...] Metabolic Rate:1555 Energy needs for weight loss 5506-1437 (15-20 nikita/kg current weight) Protein needs: 73-91 grams protein per day (1.2 - 1.5 g/kg IBW kg) Exercise - ADLs, limited by knee pain, falling below recommendations Reviewed nutrition principles of: 1. Continue to take all recommended vitamin/minerals including Bariatric Fusion Chewable Multivitamin (4x per day) OR consider switching to a daily multivitamin complete capsule (Bariatric Fusion OR Racktivity)and calcium citrate 3073-3032 mg/day 2. Protein goal: 73-91 grams protein/day 3. Fluid goal: 64 ounces per day (no carbonation, caffeine, calories, alcohol) 4. Exercise goal: increase as tolerated to goal of 200 minutes/week combination cardiovascular and strength training exercise. 5. Practice mindful eating habits-take small portions, eat slowly, chew thoroughly Patient is to follow-up: 2 months to access adherence to goals, [phone] Nutrition Monitoring & Evaluation:BMI < 35 Criteria: weight check Need for Follow up: 2 months Appointment Start Time: 11:45 AM Appointment End Time: 12:29 PM Time Spent on Consult: 44 minutes - Group Lisbet Hernandez RD documented in this encounter [facility] 11-27-2021 Miscellaneous Notes Pharmacy electronic RX [...] Tosha Rene 11/27/2021 documented in this encounter [facility] 11-22-2021 History of Present illness Narrative [...] (obstructive sleep apnea) Coronary artery disease involving [place] coronary artery of [place] heart S/P drug eluting coronary stent placement Morbid obesity (HCC) Mixed hyperlipidemia Gastroesophageal reflux disease without esophagitis Diabetes mellitus type 2 in obese (HCC) Obesity, Class III, BMI >= 40 Migraine Primary hypertension Type 2 diabetes mellitus with hyperglycemia, with long-term current use of insulin (HCC) Resolved Hospital Problems No resolved problems to display. DISPOSITION: Return [address] [facility] visit EDUCATION: Encouraged to continue with [...] & Bariatric Surgery Fellow Bariatric & Metabolic [place] [facility] documented in this encounter [facility] 11-21-2021 Miscellaneous Notes BMI SPECIALTY CARE [...] agreed with plan. documented in this encounter [facility] 11-13-2021 History of Present illness Narrative BARIATRIC SURGERY PREOPERATIVE VISIT NOTE Name: Angie Serra Medical Record: [id number] Encounter No.: [id number] This visit was performed virtually due to [...] Take 10 mEq by mouth twice daily. [employer] DESIREE 14 DAY SENSOR kit apply 1 [...] patient was offered a surgery/procedure at a [facility] facility. The surgeon/proceduralist and patient have [...] and Bariatric Surgery documented in this encounter [facility] 11-13-2021 Miscellaneous Notes BMI SPECIALTY CARE COORDINATION TELEPHONE ENCOUNTER Returning patient call; confirmed upcoming BMI appointments. Patient has BMI contact numbers to call if has any further questions or concerns. documented in this encounter [facility] 11-10-2021 Miscellaneous Notes BMI SPECIALTY CARE [...] Rhonda Barnard RN documented in this encounter [facility] 11-10-[address] Snider: I have been in communication with her surgeon and other cardiologists about her. Patient is calling to report that she has been scheduled to have bariatric surgery next week. She wants to make sure that Dr. Snider is okay with that as he mentioned her possibly having another RHC. Please advise. Angie Maryse can be reached at [phone]. documented in this encounter [facility] 11-09-2021 Miscellaneous Notes [facility] SPECIALTY CARE COORDINATION SURGERY APPROVAL CALL Received e-mail confirmation of insurance approval for bariatric surgery.Pre-operative call placed to the patient, this RN spoke with patient and agreed upon a surgery date of November 14 2021. Surgical episode request sent to [facility] surgery scheduling. Creatinine level 0.96 Patient instructed to start pre-op 800 calorie total protein liquid diet Atkins (5) daily beginning 2 weeks prior to surgery. - Stop all ASA and NSAID products, [place] 3 fish oil, herbal products such as [...] Rhonda Barnard RN documented in this encounter [facility] 11-08-2021 Miscellaneous Notes Follow up call placed to patient, no answer phone; left voice message and MyChart message with my call back phone number. documented in this encounter [facility] 10-26-2021 History of Present illness Narrative Images from the original note were not included. [facility] Nataly Watt Department of Cardiovascular Medicine [facility] for Heart Failure Treatment and Recovery Section of Heart Failure and Transplantation Medicine PATIENT Angie Serra [address] PRIMARY CARE PROVIDER Patti Valdez MD [address] [place] [address] REFERRING PROVIDER Michael Maciel [address] [facility] [address] CHIEF COMPLAINT Consult HISTORY OF PRESENT ILLNESS Angie Serra is a pleasant 56 year old White female who comes to [facility] for evaluation and management of Consult. The patient has been referred by Michael Maciel MD; a copy of this note will be provided by way of shared medical record and/or via regular mail. The date of his first clinic visit with me is September 14, 2021. In summary, Angie Serra is a 56 y/o female from [place], [place] following up after hospitalization. Pt has [...] in Obese (Hcc) Coronary Artery Disease Involving [place] Coronary Artery of [place] Heart S/P Drug Eluting Coronary Stent Placement Raymundo (Obstructive Sleep Apnea) Acute On Chronic Heart Failure With Preserved Ejection Fraction (Hcc) Heart Failure With Preserved Ejection Fraction (Hcc) CURRENT MEDICATIONS potassium chloride (K-TAB) 10 mEq [...] year old White female who comes to [facility] for evaluation and management of Consult. The primary encounter diagnosis was Heart failure with preserved ejection fraction, unspecified HF chronicity ([facility]). Diagnoses of Primary hypertension, Mixed hyperlipidemia, Obesity, Class III, BMI 40-49.9 (morbid obesity) ([facility]), Coronary artery disease involving [place] coronary artery of [place] heart, unspecified whether angina present, S/P drug eluting coronary stent placement, Type 2 diabetes mellitus with hyperglycemia, with long-term current use of insulin ([facility]), and Gastroesophageal reflux disease without esophagitis [...] Order Specific Question: Provider Answer: Johanne SNIDER [[id number]] Order Specific Question: CVM Section: Answer: Heart Failure Order Specific Question: Testing Options: Answer: No Testing Order Specific Question: Return: Answer: 3 months potassium chloride (K-TAB) 10 mEq tablet Sig: Take 10 mEq by mouth twice daily. [facility] STAFF PHYSICIAN NOTE OF PERSONAL INVOLVEMENT IN CARE I have personally performed a nkht-pj-uuks diagnostic evaluation on this patient, including anamnesis [...] Recovery Nataly Watt Department of Cardiovascular [facility] Heart, Vascular and Thoracic [place] [address] [place] Tel: [phone] Fax: [phone] Appt: [phone] documented in this encounter [facility] 10-26-2021 Instructions Delmi Blue, YESENIA - 10/26/2021 8:33 AM EDT Nutrition Intervention 10/26/2021: Modify type and amount of food consumed for meals and snacks: Please call [phone], option 5. Leave a message for the [...] day 5 packets of No Sugar Added Winfred Instant Breakfast Drink mixed with fat free [...] in the AM, 2 in the PM) www.bariatricfusion.[employer] - [employer]: 1 Bariatric Multivitamin and Calcium Citrate (total of 1239-0815 mg/day) * take calcium citrate separately from Multivitamin with iron at least 2 hours apart and 4 hours apart from additional calcium www.CATASYS - Bariatric Choice: 4 Complete Multivitamins (chewables) per day Www.Membersuite.[employer] - Bariatric Advantage: 2 Multivitamins and 3 Calcium Citrate Chewables per day * take calcium citrate separately from Multivitamin with iron at least 2 hours apart and 4 hours apart from additional calcium Www.bariatricadMass Fidelityage.[employer] Nutrition Monitoring & Evaluation: 1-2 lb per week weight loss Criteria: Patient update, weight check Need for Follow up: 2-weeks post-op documented in this encounter [facility] 10-26-2021 History of Present illness Narrative The [facility] Nutrition Therapy: Virtual Consult Re-assessment This [...] consumed for meals and snacks: 1. Continue 4420-9303 calorie partial liquid diet (refer to handout) [...] guidelines for weight loss surgery and has [facility] insurance and therefore may be required [...] consumed for meals and snacks: Please call [phone], option 5. Leave a message for the [...] day 5 packets of No Sugar Added Winfred Instant Breakfast Drink mixed with fat free [...] in the AM, 2 in the PM) www.bariatricfusion.[employer] - [employer]: 1 Bariatric Multivitamin and Calcium Citrate (total of 0399-0364 mg/day) * take calcium citrate separately from Multivitamin with iron at least 2 hours apart and 4 hours apart from additional calcium www.S[employer] Mobile[employer]o [employer] - Bariatric Choice: 4 Complete Multivitamins (chewables) per day Www.[email or web address].[employer] - Bariatric Advantage: 2 Multivitamins and 3 [...] RDN, SVETA, MELBA documented in this encounter [facility] 10-24-2021 History of Present illness Narrative Office notes for insurance requirements for PAP therapy use faxed to [facility]; [employer] # [phone]; FAX# [phone]; [phone]. Confirmed and filed. Chiqui Gregg Ma Images from the original note were not included. [facility] Virtual Visit Follow [...] will have a prescription sent to a [employer]) company - YANELI Serrato - who will be calling you in the next 2-4 weeks or so. Please call them directly or us if you do not hear from them in this time frame. - You should be eligible for new supplies approximately every 3-6 months, depending on your insurance coverage. - If your mask doesn't fit well, call the [employer] company before 30 days are up to get a new mask without an additional charge. - Insurance requires regular usage and periodic office follow ups for PAP therapy, to continue to cover supplies. INSURANCE REQUIREMENTS: - Your insurance requires a hxqe-pz-ocdm follow up visit within a 31-90 day [...] Follow up in 3 month(s). Soo Vyas APRN.RETAIL DEPARTMENT MANAGER Interval history : 56 yo female [...] negative. ALLERGIES No Known Allergies CURRENT MEDICATIONS: [employer]s 14 DAY SENSOR kit apply 1 SENSOR [...] depending on your insurance coverage. Contact your [employer] (DME) company for new supplies as needed. - Follow up in 12 months Soo Vyas APRN.ADELIA I spent a total of 17 minutes on the date of the service which included preparing to see the patient, qjxy-wz-[id number] patient care, completing clinical documentation, obtaining and/or reviewing separately obtained history, counseling and educating the patient/family/caregiver and communicating results to the patient/family/caregiver. documented in this encounter [facility] 10-05-2021 History of Present illness Narrative Images from the original note were not included. Heart, Vascular & Thoracic [place] Department of Cardiovascular Medicine VIRTUAL VIDEO VISIT [...] disease ? EKG 07/14/20 read as inferior VT and possible anterolateral infarction. Echo showing anteroseptal akinesis and apical thinning with EF 50% ? No history of angina or angina equivalent. Has been more active here recently, walking 2-3 miles on flat ground without limitation or symptom onset. ? Tobacco use: Quit 37 years ago < 1 ppd for less than 2 years ? Family History: Father: CAD [place] CABG DM, HTN, HLD, Mother: DM HTN, [...] 2021 10:40 AM documented in this encounter [facility] 09-25-2021 History of Present illness Narrative [facility] Nutrition Therapy: Virtual Consult Re-assessment This [...] (date of last encounter 08/25/2021): 1. Continue 9463-5314 calorie partial liquid diet (refer to handout) [...] guidelines for weight loss surgery and has [facility] insurance and therefore may be required [...] consumed for meals and snacks: 1. Continue 8660-1013 calorie partial liquid diet (refer to handout) [...] Follow up: 1 month MNT Billing Type: Re-assess/ min 1 unit Signed by: Danuta Fuentes, ,RD,CSOWM,LD documented in this encounter [facility] 09-20-2021 Miscellaneous Notes [id number] HOLLY PA for entresto 24-26 mg tablet has been initiated thru Cover My meds. Await determination. Genoveva Moseley RN September 20, 2021 8:20 AM Approvedtoday Request Reference Number: [id number]. ENTRESTO TAB 24-26MG is approved through 09/20/2022. Your patient may now fill this prescription and it will be covered. Genoveva Moseley RN September 20, 2021 8:27 AM documented in this encounter [facility] 09-14-2021 Instructions Johanne Snider MD - 09/14/2021 10:23 AM EDT Will start Entresto 50 mg twice daily Will increase Empagliflozin to 25 mg daily Will stop Isosorbide Will stop Furosemide Will start Torsemide 20 mg daily Continue to follow all other prescribed medical therapies and recommendations. Return to clinic in 4 weeks for follow up with fasting labs. documented in this encounter [facility] 09-14-2021 History of Present illness Narrative Images from the original note were not included. [facility] Nataly Watt Department of Cardiovascular Medicine [facility] Treatment [facility] Recovery Section of Heart Failure and Transplantation Medicine PATIENT Angie Serra [address] [address] [facility] PRIMARY CARE PROVIDER Patti Valdez MD [address] [place] [id number] REFERRING PROVIDER Michael Maciel [address] [facility] [address] CHIEF COMPLAINT Consult HISTORY OF PRESENT ILLNESS Angie Serra is a pleasant 56 year old White female who comes to [facility] for evaluation and management of Consult. The patient has been referred by Michael Maciel MD; a copy of this note will be provided by way of shared medical record and/or via regular mail. The date of his first clinic visit with me is September 14, 2021. In summary, Angie Serra is a 56 y/o female from [place], [place] following up after hospitalization. Pt has [...] Esophagitis Diabetes Mellitus Type 2 in Obese ([facility]) Coronary Artery Disease Involving [place] Coronary Artery of [place] Heart S/P Drug Eluting Coronary Stent Placement Raymundo (Obstructive Sleep Apnea) Acute On Chronic Heart Failure With Preserved Ejection Fraction (Hcc) CURRENT MEDICATIONS FREESTTeachernow DESIREE 14 DAY SENSOR kit apply 1 [...] year old White female who comes to [facility] for evaluation and management of Consult. The primary encounter diagnosis was Acute on chronic heart failure with preserved ejection fraction (HCC). Diagnoses of Primary hypertension, Mixed hyperlipidemia, Obesity, Class III, BMI 40-49.9 (morbid obesity) ([facility]), Coronary artery disease involving [place] coronary artery of [place] heart, unspecified whether angina present, S/P drug eluting coronary stent placement, Type 2 diabetes mellitus with hyperglycemia, with long-term current use of insulin ([facility]), and Gastroesophageal reflux disease without esophagitis [...] Order Specific Question: Provider Answer: Johanne SNIDER [[id number]] Order Specific Question: CVM Section: Answer: Heart [...] to having blood drawn. (Water is permitted) [employer] DESIREE 14 DAY SENSOR kit Sig: apply [...] twice daily. Dispense: 180 tablet Refill: 3 [facility] STAFF PHYSICIAN NOTE OF PERSONAL INVOLVEMENT IN CARE I have personally performed a [id number] diagnostic evaluation on this patient, including anamnesis [...] Transplantation Medicine Vidal Javier and Ariana Barrera [facility] Nataly Watt Department of Cardiovascular Medicine Lucy Maloney [facility] Heart, Vascular and Thoracic [place] [address] [place] Tel: [phone] Fax: [phone] Appt: [phone] documented in this encounter [facility] 04-08-2022 History of Present illness Narrative [facility] Nutrition Therapy: Virtual Consult Re-assessment This [...] week: Chair or standing Team Body Project [email or web address]://www.FiberZone Networksube.com/watch?v=e8 opMY-SoZc Chair exercise Forward Talent [email or web address]/resour ce/videos-[email or web address]?video=[email or web address] Laura Pandey Easy walk in place 15 min https://www.Fiber[employer] Networksube.com/watch?v=nj eN59mkdTJ Body Project 30 min [email or web address].[email or web address]-[email or web address] Laura Katherin Higher intensity walk 30 min https://www.FiberZone Networksube.com/watch?v=cv CW1BIi3PU 5. Drink 64 ounces per day water. [...] mL (BD POSIFLUSH) 10 mL INTRAVENOUS DIRECTED JUAN LUISN Tonie Martinez DO PAST MEDICAL HISTORY Diagnosis Date Diabetes mellitus (HCC) 20 years Essential hypertension GERD (gastroesophageal reflux disease) Mixed hyperlipidemia PAST SURGICAL HISTORY Procedure Laterality Date PAST SURGICAL HISTORY OF hip surgery x2 REMOVAL GALLBLADDER 1999 TOTAL ABD HYSTERECTOMY+BLAD REPR 1999 ANTHROPOMETRICS Height per patient: 65 Weight per [...] guidelines for weight loss surgery and has [facility] insurance and therefore may be required [...] consumed for meals and snacks: 1. Continue [id number] calorie partial liquid diet (refer to handout) [...] min 1 unit Signed by: Danuta Fuentes MS,RD,CSBATSHEVA,LD documented in this encounter [facility] 08-18-2021 Miscellaneous Notes 1. Have you [...] (Standard Question) Yes documented in this encounter [facility] 08-14-2021 Miscellaneous Notes Called patient for follow up from recent hospital discharge but no answer, message left on voicemail including resource nurse phone number. documented in this encounter [facility] 08-12-2021 Miscellaneous Notes Ambulatory Pharmacy Prior Authorization Note Provider Intervention Required?: No- Pharmacy completed on your behalf. Drug: Jardiance 10mg Cover My Meds Broderick: [id number] Determination: Approved Prior Authorization/Case #: [id number] Prior Authorization Expiration: 08/12/2022 Time to PA Submission in CMM: 30 min Time to PA Determination in CMM: Same day Additional Information: For questions relating to this submission, please contact [facility] at [phone] documented in this encounter [facility] 08-07-2021 History of Present illness Narrative Images from the original note were not included. [facility] V[facility] [place] Nataly Watt Department of Cardiovascular Medicine SECTION OF CLINICAL CARDIOLOGY OUTPATIENT VISIT DATE August 07, 2021 OUTPATIENT VISIT TYPE ESTABLISHED PRIMARY CARE PHYSICIAN: Patti Valdez MD [address] [place] [address] CHIEF COMPLAINT: Followup visit HISTORY OF PRESENT [...] the floors, clean the dishes, load the boxing promoter, get dressed, and do laundry without shortness [...] disease ? EKG 07/14/20 read as inferior VT and possible anterolateral infarction. Echo showing anteroseptal akinesis and apical thinning with EF 50% ? No history of angina or angina equivalent. ? Tobacco use: Quit 37 years ago < 1 ppd for less than 2 years ? Family History: Father: CAD VT CABG DM, HTN, HLD, Mother: DM HTN, [...] HOSPITAL Kira Scott DO Internal Medicine, PGY3 [facility] iPhone: August 07, 2021 3:47 PM [...] Cardiology Nataly Watt Department of Cardiovascular Medicine [facility] Heart, Vascular and Thoracic [place] [facility] Office: [phone] documented in this encounter [facility] 08-07-2021 History of Past i llness Narrative Problem Noted Date Resolved Date NSTEMI (non-ST elevated myocardial infarction) 0 08/07/2021 08/12/2021 documented as of this encounter (statuses as of 08/12/2021) [facility] History of Past illness Narrative* Problem Noted Date Resolved Date NSTEMI (non-ST elevated myocardial infarction) 0 08/07/2021 08/12/2021 documented as of this encounter (statuses as of 08/14/2021) [facility] History of Past illness Narrative* Problem Noted Date Resolved Date NSTEMI (non-ST elevated myocardial infarction) 0 08/07/2021 08/12/2021 documented as of this encounter (statuses as of 08/18/2021) [facility] History of Past illness Narrative* Problem Noted Date Resolved Date NSTEMI (non-ST elevated myocardial infarction) 0 08/07/2021 08/12/2021 documented as of this encounter (statuses as of 08/25/2021) [facility] History of Past illness Narrative* Problem Noted Date Resolved Date NSTEMI (non-ST elevated myocardial infarction) 0 08/07/2021 08/12/2021 documented as of this encounter (statuses as of 09/20/2021) [address]21-[address]22 History of Past illness Narrative* Problem Noted Date Resolved Date NSTEMI (non-ST elevated myocardial infarction) 0 08/07/2021 08/12/2021 documented as of this encounter (statuses as of 09/25/2021) [address]21-2022 History of Past illness Narrative* Problem Noted Date Resolved Date NSTEMI (non-ST elevated myocardial infarction) 0 08/07/2021 08/12/2021 documented as of this encounter (statuses as of 10/02/2021) [address]21-[address]22 History of Past illness Narrative* Problem Noted Date Resolved Date NSTEMI (non-ST elevated myocardial infarction) 0 08/07/2021 08/12/2021 documented as of this encounter (statuses as of 10/06/2021) [address]21-2022 History of Past illness Narrative* Problem Noted Date Resolved Date NSTEMI (non-ST elevated myocardial infarction) 0 08/07/2021 08/12/2021 documented as of this encounter (statuses as of 10/24/2021) [address]21-2022 History of Past illness Narrative* Problem Noted Date Resolved Date NSTEMI (non-ST elevated myocardial infarction) 0 08/07/2021 08/12/2021 documented as of this encounter (statuses as of 10/24/2021) [address]21-2022 History of Past illness Narrative* Problem Noted Date Resolved Date NSTEMI (non-ST elevated myocardial infarction) 0 08/07/2021 08/12/2021 documented as of this encounter (statuses as of 10/26/2021) [address]21-2022 History of Past illness Narrative* Problem Noted Date Resolved Date NSTEMI (non-ST elevated myocardial infarction) 0 08/07/2021 08/12/2021 documented as of this encounter (statuses as of 10/26/2021) [address]21-2022 History of Past illness Narrative* Problem Noted Date Resolved Date NSTEMI (non-ST elevated myocardial infarction) 0 08/07/2021 08/12/2021 documented as of this encounter (statuses as of 11/08/2021) [address]21-2022 History of Past illness Narrative* Problem Noted Date Resolved Date NSTEMI (non-ST elevated myocardial infarction) 0 08/07/2021 08/12/2021 documented as of this encounter (statuses as of 11/08/2021) [address]21-2022 History of Past illness Narrative* Problem Noted Date Resolved Date NSTEMI (non-ST elevated myocardial infarction) 0 08/07/2021 08/12/2021 documented as of this encounter (statuses as of 11/09/2021) [address]21-2022 History of Past illness Narrative* Problem Noted Date Resolved Date NSTEMI (non-ST elevated myocardial infarction) 0 08/07/2021 08/12/2021 documented as of this encounter (statuses as of 11/10/2021) [address]21-2022 History of Past illness Narrative* Problem Noted Date Resolved Date NSTEMI (non-ST elevated myocardial infarction) 0 08/07/2021 08/12/2021 documented as of this encounter (statuses as of 11/13/2021) [address]21-2022 History of Past illness Narrative* Problem Noted Date Resolved Date NSTEMI (non-ST elevated myocardial infarction) 0 08/07/2021 08/12/2021 documented as of this encounter (statuses as of 11/13/2021) [facility] History of Past illness Narrative* Problem Noted Date Resolved Date NSTEMI (non-ST elevated myocardial infarction) 0 08/07/2021 08/12/2021 documented as of this encounter (statuses as of 11/21/2021) [address]21-2022 History of Past illness Narrative* Problem Noted Date Resolved Date NSTEMI (non-ST elevated myocardial infarction) 0 08/07/2021 08/12/2021 documented as of this encounter (statuses as of 11/22/2021) [address]21-2022 History of Past illness Narrative* Problem Noted Date Resolved Date NSTEMI (non-ST elevated myocardial infarction) 0 08/07/2021 08/12/2021 documented as of this encounter (statuses as of 12/01/2021) [address]21-2022 History of Past illness Narrative* Problem Noted Date Resolved Date NSTEMI (non-ST elevated myocardial infarction) 0 08/07/2021 08/12/2021 documented as of this encounter (statuses as of 01/09/2022) [facility] History of Past illness Narrative* Problem Noted Date Resolved Date NSTEMI (non-ST elevated myocardial infarction) 0 08/07/2021 08/12/2021 documented as of this encounter (statuses as of 02/19/2022) [facility] History of Past illness Narrative* Problem Noted Date Resolved Date NSTEMI (non-ST elevated myocardial infarction) 0 08/07/2021 08/12/2021 documented as of this encounter (statuses as of 03/16/2022) [facility] History of Past illness Narrative* Problem Noted Date Resolved Date NSTEMI (non-ST elevated myocardial infarction) 0 08/07/2021 08/12/2021 documented as of this encounter (statuses as of 2022) [facility] History of Past illness Narrative* Problem Noted Date Resolved Date NSTEMI (non-ST elevated myocardial infarction) 0 08/07/2021 08/12/2021 documented as of this encounter (statuses as of 07/31/2022) [facility] History of Past illness Narrative* Problem Noted Date Diagnosed Date Resolved Date NSTEMI (non-ST elevated myoc ardial infarction) 08/07/2021 08/12/2021 documented as of this encounter (statuses as of 12/27/2022) [facility] History of Past illness Narrative* Problem Noted Date Diagnosed Date Resolved Date NSTEMI (non-ST elevated myoc ardial infarction) 08/07/2021 08/12/2021 documented as of this encounter (statuses as of 12/28/2022) [facility] History of Past illness Narrative* Problem Noted Date Diagnosed Date Resolved Date NSTEMI (non-ST elevated myoc ardial infarction) 08/07/2021 08/12/2021 documented as of this encounter (statuses as of 07/18/2023) [facility] History of Past illness Narrative* Problem Noted Date Diagnosed Date Resolved Date NSTEMI (non-ST elevated myoc ardial infarction) 08/07/2021 08/12/2021 documented as of this encounter (statuses as of 12/15/2022) [facility] note* Diagnosis Dyspnea, unspecified type- Primary documented in this encounter [facility] note* Diagnosis Diabetes mellitus type 2 in obese (HCC)- Primary Type II or unspecified type diabetes mellitus without mention of complication, not stated as uncontrolled Dietary counseling and surveillance Dietary surveillance and counseling documented in this encounter [facility] note* Diagnosis Diabetes mellitus type 2 in obese (HCC)- Primary Type II or unspecified type diabetes mellitus without mention of complication, not stated as uncontrolled Dietary counseling and surveillance Dietary surveillance and counseling documented in this encounter [facility] note* Diagnosis Acute on chronic heart failure with preserved ejection fraction ([facility])- Primary Primary hypertension Unspecified essential hypertension Mixed hyperlipidemia Obesity, Class III, BMI 40-49.9 (morbid obesity) ([facility]) Morbid obesity Coronary artery disease involving [place] coronary artery of [place] heart, unspecified whether angina present S/P drug eluting coronary stent placement Postsurgical percutaneous transluminal coronary angioplasty status Type 2 diabetes mellitus with hyperglycemia, with long-term current use of insulin ([facility]) Gastroesophageal reflux disease without esophagitis Esophageal reflux [facility]* Diagnosis Heart failure with preserved ejection fraction, unspecified HF chronicity ([facility])- Primary documented in this encounter [facility] note* Diagnosis RAYMUNDO (obstructive sleep apnea)- Primary Obstructive sleep apnea (adult) (pediatric) Vitamin D deficiency Unspecified vitamin D deficiency documented in this encounter [facility] note* Diagnosis BMI 40.0-44.9, adult ([facility])- Primary Body Mass Index 40.0-44.9, adult Dietary counseling Dietary surveillance and counseling documented in this encounter [facility] note* Diagnosis Heart failure with preserved ejection fraction, unspecified HF chronicity ([facility])- Primary Primary hypertension Unspecified essential hypertension Mixed hyperlipidemia Obesity, Class III, BMI 40-49.9 (morbid obesity) ([facility]) Morbid obesity Coronary artery disease involving [place] coronary artery of [place] heart, unspecified whether angina present S/P drug eluting coronary stent placement Postsurgical percutaneous transluminal coronary angioplasty status Type 2 diabetes mellitus with hyperglycemia, with long-term current use of insulin ([facility]) Gastroesophageal reflux disease without esophagitis Esophageal reflux documented in this encounter [facility] note* Diagnosis Postoperative pain- Primary Other acute postoperative pain Morbid obesity (HCC) Morbid obesity Type 2 diabetes mellitus with morbid obesity (HCC) Morbid obesity (HCC) Morbid obesity documented [facility]* Diagnosis Bariatric surgery status- Primary documented in this encounter [facility] note* Diagnosis Coronary artery disease involving [place] coronary artery of [place] heart, unspecified whether angina present documented in this encounter [facility] note* Diagnosis Impaired intestinal absorption- Primary Unspecified intestinal malabsorption S/P gastric bypass Bariatric surgery status Obesity, Class II, BMI 35-39.9 Obesity, unspecified Dietary counseling and surveillance Dietary surveillance and counseling documented in this encounter [facility] note* Diagnosis BMI 30.0-30.9,adult- Primary Body Mass Index 30.0-30.9, adult Dietary counseling Dietary surveillance and counseling documented in this encounter [facility] note* Diagnosis Heart failure with preserved ejection fraction, unspecified HF chronicity (HCC)- Primary Coronary artery disease involving [place] coronary artery of [place] heart, unspecified whether angina present Primary hypertension Unspecified essential hypertension Mixed hyperlipidemia Obesity, Class III, BMI 40-49.9 (morbid obesity) (HCC) Morbid obesity S/P drug eluting coronary stent placement Postsurgical percutaneous transluminal coronary angioplasty status Type 2 diabetes mellitus with hyperglycemia, with long-term current use of insulin (HCC) Gastroesophageal reflux disease without esophagitis Esophageal reflux documented in this encounter [facility] note* Diagnosis Research subject- Primary documented in this encounter [facility] note* Diagnosis Heart failure with preserved ejection fraction, unspecified HF chronicity (HCC)- Primary Coronary artery disease involving [place] coronary artery of [place] heart, unspecified whether angina present Primary hypertension Unspecified essential hypertension Mixed hyperlipidemia Obesity, Class III, BMI 40-49.9 (morbid obesity) (HCC) Morbid obesity S/P drug eluting coronary stent placement Postsurgical percutaneous transluminal coronary angioplasty status Type 2 diabetes mellitus with hyperglycemia, with long-term current use of insulin (HCC) Gastroesophageal reflux disease without esophagitis Esophageal reflux documented in this encounter [facility] note* Diagnosis Pre-op evaluation- Primary Preoperative examination, unspecified Morbid obesity (HCC) Morbid obesity Primary hypertension Unspecified essential hypertension Heart failure with preserved ejection fraction, unspecified HF chronicity (HCC) Migraine without status migrainosus, not intractable, unspecified migraine type Gastroesophageal reflux disease without esophagitis Esophageal reflux Type 2 diabetes mellitus with hyperglycemia, with long-term current use of insulin (HCC) RAYMUNDO (obstructive sleep apnea) Obstructive sleep apnea (adult) (pediatric) Mixed hyperlipidemia Coronary artery disease involving [place] coronary artery of [place] heart, unspecified whether angina present Obesity, Class III, BMI >= 40 Morbid obesity Heart failure with preserved ejection fraction, unspecified HF chronicity (HCC)- Primary Coronary artery disease involving [place] coronary artery of [place] heart, unspecified whether angina present Primary hypertension Unspecified essential hypertension Mixed hyperlipidemia Obesity, Class III, BMI 40-49.9 (morbid obesity) (HCC) Morbid obesity Type 2 diabetes mellitus with hyperglycemia, with long-term current use of insulin (HCC) S/P drug eluting coronary stent placement Postsurgical percutaneous transluminal coronary angioplasty status Gastroesophageal reflux disease without esophagitis Esophageal reflux documented in this encounter [facility] for referral (narrative)* Outpatient Procedure (Routine) - New Request Specialty Diagnoses / Procedures Referred By Steven ma Referred To Contact [facility] Diagnoses Heart failure with preserved ejection fraction, unspecified HF chronicity (HCC) Coronary artery disease involving [place] coronary artery of [place] heart, unspecified whether angina present Primary hypertension Mixed hyperlipidemia Obesity, Class III, BMI 40-49.9 (morbid obesity) (HCC) Type 2 diabetes mellitus with hyperglycemia, with long-term current use of insulin (HCC) S/P drug eluting coronary stent placement Gastroesophageal reflux disease without esophagitis Procedures EXERCISE STRESS ECG METABOLIC (WITHOUT IMAGING) CV STRS TST XERS&/OR RX CONT ECG TRCG ONLY Johanne Snider MD [address] [place] [address] [place] [address] [place] [address] Referral ID Status Reason Start Date Expiration Date Visits Requested Visits Authorized [id number] New Request Auto-Generat ed Referral 12/08/2024 06/10/2025 1 1 * Outpatient Procedure (Routine) - New Request Specialty Diagnoses / Procedures Referred By Contac t Referred To Contact [facility] Diagnoses Heart failure with preserved ejection fraction, unspecified HF chronicity (HCC) Coronary artery disease involving [place] coronary artery of [place] heart, unspecified whether angina present Primary hypertension Mixed hyperlipidemia Obesity, Class III, BMI 40-49.9 (morbid obesity) (HCC) Type 2 diabetes mellitus with hyperglycemia, with long-term current use of insulin (HCC) S/P drug eluting coronary stent placement Gastroesophageal reflux disease without esophagitis Procedures ECHO ECHO TTHRC R-T 2D W/WOM-MODE COMPL SPEC&COLR D Johanne Snider MD [address] [place] [address] [address] Referral ID Status Reason Start Date Expiration Date Visits Requested Visits Authorized [id number] New Request Auto-Generat ed Referral 06/10/2024 06/10/2025 1 1 * Transition of Care (Routine) - Authorized Specialty Diagnoses / Procedures Referred By Steven ma Referred To Contact [facility] Procedures CARDIOVASCULAR MEDICINE OP FOLLOW UP APPT ORDER Johanne Snider MD [address] [place] [address] [address] Referral ID Status Reason Start Date Expiration Date Visits Requested Visits Authorized [id number] Authorized PCP Requested Referral 12/08/2024 06/10/2025 1 1 [facility] Summary Purpose Family History No Family History Records FoundNo Family History Records FoundNo Family History Records FoundNo Family History Records Found Advance Directives No Advanced Directives Records FoundDocuments on File Type Date 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 Advance Directive(s) 08/07/2021 8:20 PM [...] Documents on File Type Date Recorded 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 Advance Directive(s) 08/07/2021 8:20 PM Advance Directive(s) 09/28/2020 2:26 PM Advance Directive(s) 06/27/2020 10:57 AM Advance Directive(s) 06/24/2020 6:34 AM Advance Directive(s) 06/16/2020 12:40 PM Latest Code Status on File Code Status Date Activated Date Inactivated Comments Full Code 08/07/2021 10:39 PM 08/12/2021 6:19 PM Documents on File Type Date Recorded 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 Advance Directive(s) 11/13/2021 8:32 AM [...] With: Patient Procedure Findings Note HNO ID: [id number] Author: Tessa Rodriguez (Zuleima Barnhart DO Service: General Surgery Author Type: Resident Type: Brief Op Note Filed: 07/01/2020 10:47 AM Note Text: BRIEF OPERATIVE NOTE - GENERAL SURGERY Log ID: [id number] Surgery/Procedure Date: 07/01/2020 Incision/Procedure Start Time: 10:04 AM Incision Close/Procedure End Time: 10:43 AM Surgeon(s) and Tire Bagger(s): Surgeon(s) and Role: * Salbador Hernandez - [...] Specialty Diagnoses / Procedures Referred By Steven t Referred To Contact Johanne Snider MD [address] [id number] Referral ID Status Reason Start Date Expiration Date Visits Re quested Visits Authorized [id number] Closed 1 1 Health Concerns Infection Onset Date Last Indicated Resolved Time COVID-19 Rule-Out 11/12/2021 11/12/2021 11/13/2021 3:44 AM EDT Additional Source Comments INFORMATION SOURCE (unrecogn ized section and content) DATE CREATED AUTHOR 07/02/2020 [facility] DATE CREATED AUTHOR AUTHOR'S ORGANIZ ATION 11/14/2021 [facility] DATE CREATED AUTHOR AUTHOR'S ORGANIZ ATION 03/22/2022 [facility] DATE CREATED AUTHOR AUTHOR'S ORGANIZ ATION 01/31/2025 [facility] Source Comments (unrecognize d section and content) In the event this informatio n is protected by the Federal Confidentiality of Alcohol and Drug Abuse Patient Records regulations: The Federal rules restrict any use of the information to criminally investigate or prosecute any alcohol or drug abuse patient.[facility] the event this information is protected by the Federal Confidentiality of Alcohol and Drug Abuse Patient Records regulations: The Federal rules restrict any use of the information to criminally investigate or prosecute any alcohol or drug abuse patient.[facility] the event this information is protected by the Federal Confidentiality of Alcohol and Drug Abuse Patient Records regulations: The Federal rules restrict any use of the information to criminally investigate or prosecute any alcohol or drug abuse patient.[facility] the event this information is protected by the Federal Confidentiality of Alcohol and Drug Abuse Patient Records regulations: The Federal rules restrict any use of the information to criminally investigate or prosecute any alcohol or drug abuse patient.[facility] Center[facility] the event this information is protected [...] or prosecute any alcohol or drug abuse patient.[facility] Center[facility] the event this information is protected by the Federal Confidentiality of Alcohol and Drug Abuse Patient Records regulations: The Federal rules restrict any use of the information to criminally investigate or prosecute any alcohol or drug abuse patient.[facility] the event this information is protected by the Federal Confidentiality of Alcohol and Drug Abuse Patient Records regulations: The Federal rules restrict any use of the information to criminally investigate or prosecute any alcohol or drug abuse patient.[facility] the event this information is protected by the Federal Confidentiality of Alcohol and Drug Abuse Patient Records regulations: The Federal rules restrict any use of the information to criminally investigate or prosecute any alcohol or drug abuse patient.[facility] the event this information is protected by the Federal Confidentiality of Alcohol and Drug Abuse Patient Records regulations: The Federal rules restrict any use of the information to criminally investigate or prosecute any alcohol or drug abuse patient.[facility] the event this information is protected by the Federal Confidentiality of Alcohol and Drug Abuse Patient Records regulations: The Federal rules restrict any use of the information to criminally investigate or prosecute any alcohol or drug abuse patient.[facility] the event this information is protected by the Federal Confidentiality of Alcohol and Drug Abuse Patient Records regulations: The Federal rules restrict any use of the information to criminally investigate or prosecute any alcohol or drug abuse patient.[facility] the event this information is protected by the Federal Confidentiality of Alcohol and Drug Abuse Patient Records regulations: The Federal rules restrict any use of the information to criminally investigate or prosecute any alcohol or drug abuse patient.[facility] the event this information is protected by the Federal Confidentiality of Alcohol and Drug Abuse Patient Records regulations: The Federal rules restrict any use of the information to criminally investigate or prosecute any alcohol or drug abuse patient.[facility] the event this information is protected by the Federal Confidentiality of Alcohol and Drug Abuse Patient Records regulations: The Federal rules restrict any use of the information to criminally investigate or prosecute any alcohol or drug abuse patient.[facility] the event this information is protected by the Federal Confidentiality of Alcohol and Drug Abuse Patient Records regulations: The Federal rules restrict any use of the information to criminally investigate or prosecute any alcohol or drug abuse patient.[facility] the event this information is protected by the Federal Confidentiality of Alcohol and Drug Abuse Patient Records regulations: The Federal rules restrict any use of the information to criminally investigate or prosecute any alcohol or drug abuse patient.[facility] the event this information is protected by the Federal Confidentiality of Alcohol and Drug Abuse Patient Records regulations: The Federal rules restrict any use of the information to criminally investigate or prosecute any alcohol or drug abuse patient.[facility] the event this information is protected by the Federal Confidentiality of Alcohol and Drug Abuse Patient Records regulations: The Federal rules restrict any use of the information to criminally investigate or prosecute any alcohol or drug abuse patient.[facility] Center[facility] the event this information is protected by the Federal Confidentiality of Alcohol and Drug Abuse Patient Records regulations: The Federal rules restrict any use of the information to criminally investigate or prosecute any alcohol or drug abuse patient.[facility] the event this information is protected by the Federal Confidentiality of Alcohol and Drug Abuse Patient Records regulations: The Federal rules restrict any use of the information to criminally investigate or prosecute any alcohol or drug abuse patient.[facility] the event this information is protected by the Federal Confidentiality of Alcohol and Drug Abuse Patient Records regulations: The Federal rules restrict any use of the information to criminally investigate or prosecute any alcohol or drug abuse patient.[facility] the event this information is protected by the Federal Confidentiality of Alcohol and Drug Abuse Patient Records regulations: The Federal rules restrict any use of the information to criminally investigate or prosecute any alcohol or drug abuse patient.[facility] Center[facility] the event this information is protected by the Federal Confidentiality of Alcohol and Drug Abuse Patient Records regulations: The Federal rules restrict any use of the information to criminally investigate or prosecute any alcohol or drug abuse patient.[facility] the event this information is protected by the Federal Confidentiality of Alcohol and Drug Abuse Patient Records regulations: The Federal rules restrict any use of the information to criminally investigate or prosecute any alcohol or drug abuse patient.[facility] the event this information is protected by the Federal Confidentiality of Alcohol and Drug Abuse Patient Records regulations: The Federal rules restrict any use of the information to criminally investigate or prosecute any alcohol or drug abuse patient.[facility] the event this information is protected by the Federal Confidentiality of Alcohol and Drug Abuse Patient Records regulations: The Federal rules restrict any use of the information to criminally investigate or prosecute any alcohol or drug abuse patient.[facility] the event this information is protected by the Federal Confidentiality of Alcohol and Drug Abuse Patient Records regulations: The Federal rules restrict any use of the information to criminally investigate or prosecute any alcohol or drug abuse patient.[facility] the event this information is protected by the Federal Confidentiality of Alcohol and Drug Abuse Patient Records regulations: The Federal rules restrict any use of the information to criminally investigate or prosecute any alcohol or drug abuse patient.[facility] the event this information is protected by the Federal Confidentiality of Alcohol and Drug Abuse Patient Records regulations: The Federal rules restrict any use of the information to criminally investigate or prosecute any alcohol or drug abuse patient.[facility] the event this information is protected by the Federal Confidentiality of Alcohol and Drug Abuse Patient Records regulations: The Federal rules restrict any use of the information to criminally investigate or prosecute any alcohol or drug abuse patient.[facility]In the event this information is protected by the Federal Confidentiality of Alcohol and Drug Abuse Patient Records regulations: The Federal rules restrict any use of the information to criminally investigate or prosecute any alcohol or drug abuse patient.[facility] the event this information is protected by the Federal Confidentiality of Alcohol and Drug Abuse Patient Records regulations: The Federal rules restrict any use of the information to criminally investigate or prosecute any alcohol or drug abuse patient.[facility]In the event this information is protected by the Federal Confidentiality of Alcohol and Drug Abuse Patient Records regulations: The Federal rules restrict any use of the information to criminally investigate or prosecute any alcohol or drug abuse patient.[facility] CenterIn the event this information is protected by the Federal Confidentiality of Alcohol and Drug Abuse Patient Records regulations: The Federal rules restrict any use of the information to criminally investigate or prosecute any alcohol or drug abuse patient.[facility] CenterIn the event this information is protected by the Federal Confidentiality of Alcohol and Drug Abuse Patient Records regulations: The Federal rules restrict any use of the information to criminally investigate or prosecute any alcohol or drug abuse patient.[facility] Care Teams (unrecognized sec tion and content) Voice Engineer Relationship Specialty Start Date End Date Patti Valdez MD [address] [place] [address] PCP - General Family Practice 06/16/20 Reed Leon MD [address] [place] [address] Primary Staff Physician Cardiology 11/08/20 Voice Engineer Relationship Specialty Start Date End Date Patti Valdez MD [address] [place] [address] PCP - General Family Practice 06/16/20 Reed Leon MD [address] [place] [address] Primary Staff Physician Cardiology 11/08/20 Voice Engineer Relationship Specialty Start Date End Date Patti Valdez MD [address] [place] [address] PCP - General Family Practice 06/16/20 Reed Leon MD [address] [place] [address] Primary Staff Physician Cardiology 11/08/20 Voice Engineer Relationship Specialty Start Date End Date Patti Valdez MD [address] [place] [address] PCP - General Family Practice 06/16/20 Reed Leon MD [address] [place] [address] Primary Staff Physician Cardiology 11/08/20 Voice Engineer Relationship Specialty Start Date End Date Patti Valdez MD [address] [place] [address] PCP - General Family Practice 06/16/20 Reed Leon MD [address] [place] [address] Primary Staff Physician Cardiology 11/08/20 Voice Engineer Relationship Specialty Start Date End Date Patti Valdez MD [address] [place] [address] PCP - General Family Practice 06/16/20 Reed Leon MD [address] [place] [address] Primary Staff Physician Cardiology 11/08/20 Voice Engineer Relationship Specialty Start Date End Date Patti Valdez MD [address] [place] [address] PCP - General Family Practice 06/16/20 Reed Leon MD [address] [place] [address] Primary Staff Physician Cardiology 11/08/20 Voice Engineer Relationship Specialty Start Date End Date Patti Valdez MD [address] [place] [address] PCP - General Family Practice 06/16/20 Reed Leon MD [address] [place] [address] Primary Staff Physician Cardiology 11/08/20 Voice Engineer Relationship Specialty Start Date End Date Patti Valdez MD [address] [place] [address] PCP - General Family Practice 06/16/20 Reed Leon MD [address] [place] [address] Primary Staff Physician Cardiology 11/08/20 Voice Engineer Relationship Specialty Start Date End Date Patti Valdez MD [address] [place] [address] PCP - General Family Practice 06/16/20 Reed Leon MD [address] [place] [address] Primary Staff Physician Cardiology 11/08/20 Voice Engineer Relationship Specialty Start Date End Date Patti Valdez MD [address] [place] [address] PCP - General Family Practice 06/16/20 Reed Leon MD [address] [place] [address] Primary Staff Physician Cardiology 11/08/20 Voice Engineer Relationship Specialty Start Date End Date Patti Valdez MD [address] [place] [address] PCP - General Family Practice 06/16/20 Reed Leon MD [address] [place] [address] Primary Staff Physician Cardiology 11/08/20 Voice Engineer Relationship Specialty Start Date End Date Patti Valdez MD [address] [place] [address] PCP - General Family Practice 06/16/20 Reed Leon MD [address] [place] [address] Primary Staff Physician Cardiology 11/08/20 Voice Engineer Relationship Specialty Start Date End Date Patti Valdez MD [address] [place] [address] PCP - General Family Medicine 06/16/20 Reed Leon MD [address] [place] [address] Primary Staff Physician Cardiology 11/08/20 Voice Engineer Relationship Specialty Start Date End Date Patti Valdez MD [address] [place] [address] PCP - General Family Medicine 06/16/20 Reed Leon MD [address] [place] [address] Primary Staff Physician Cardiology 11/08/20 Voice Engineer Relationship Specialty Start Date End Date Patti Valdez MD [address] [place] [address] PCP - General Family Medicine 06/16/20 Reed Leon MD [address] [place] [address] Primary Staff Physician Cardiology 11/08/20 Voice Engineer Relationship Specialty Start Date End Date Patti Valdez MD PCP - General Family Medicine 06/16/20 Reed Leon MD [address] [place] [address] Primary Staff Physician Cardiology 11/08/20 Voice Engineer Relationship Specialty Start Date End Date Patti Valdez MD PCP - General Family Medicine 06/16/20 Reed Leon MD [address] [place] [address] Primary Staff Physician Cardiology 11/08/20 Voice Engineer Relationship Specialty Start Date End Date Patti Valdez MD PCP - General Family Medicine 06/16/20 Reed Leon MD [address] [place] [address] Primary Staff Physician Cardiology 11/08/20 Voice Engineer Relationship Specialty Start Date End Date Patti Valdez MD PCP - General Family Medicine 06/16/20 Reed Leon MD [address] [place] [address] Primary Staff Physician Cardiology 11/08/20 Voice Engineer Relationship Specialty Start Date End Date Patti Valdez MD PCP - General Family Medicine 06/16/20 Reed Leon MD [address] [place] [address] Primary Staff Physician Cardiology 11/08/20 Voice Engineer Relationship Specialty Start Date End Date Patti Valdez MD PCP - General Family Medicine 06/16/20 Reed Leon MD [address] [place] [address] Primary Staff Physician Cardiology 11/08/20 Voice Engineer Relationship Specialty Start Date End Date Patti Valdez MD PCP - General Family Medicine 06/16/20 Reed Leon MD [address] [place] [address] Primary Staff Physician Cardiology 11/08/20 Reason for [...] Reason Comments Rx Refills Reason Comments Research Reason Comments Heart Failure FOR RECORDS PERTAINING TO PATIENTS WHO ARE [...] BE BASED ON THE PRIMARY CLINICAL RECORDS. [email or web address] provides no warranty or guarantee of the accuracy or completeness of information in this document.
== END 2025-02-25 09:59 | disposition home or self-care (01) ==
LOC: MAMMO 09:59
PROVIDERS: PCP Family Medicine; Visit Provider Family Medicine
DX: Z12.31 Encounter for screening mammogram for malignant neoplasm of breast (principal); Z80.3 Family history of malignant neoplasm of breast
CPT/HCPCS: 77063; 77067

== ENCOUNTER 2025-05-11 08:59 | Outpatient (OUT) | payer BC, SELFPAY ==
--- OUTSIDE RECORDS SUMMARY | 2025-04-30 04:30 | XMS_ITS ---
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 Name Role Phone Abad Swann Primary Care Provider Allergies No Known Allergies REASON FOR VISIT Presents to office alone [...] -as directed OrallyActiveVitamin D (Cholecalciferol) 50 MCG (1999 UT)2 capsule Orally Once a dayActiveMeloxicam 15 MG1 tablet Orally Once a day; Duration: 30 azmdCLL52/12/2025ActiveMultivitaminIRONActiveCarvedilol 12.5 MG1 tablet with food Orally Twice a day; Duration: 90 daysActiveIpratropium [place] 0.06 %USE 2 SPRAYS IN BOTH NOSTRILS [...] Administration Date Status Comme nts Flu, Flucelvax (48232) 6 mos and older, single-dose syringe (4508-9034) IM Intramuscular 04/30/2025 Administered Social History Tobacco Use: Social History Observation Description Date Details (start date - stop date) Former Smoker 05/20/1980 - 05/20/1982 Tobacco Use/Smoking Question Answer Notes Patient is a former smoker When did you start smoking?05/20/1980When did you stop smoking?05/20/1982AUDIT-C (Standard) Question Answer Notes Did you have a drink containing alcohol in the p ast year? No Adufda8ShtsteudgkdvchSfbjjxak Problems Problem Type SNOMED Code ICD Code Onset Dates Problem Status W/U Status Risk Notes Problem Functional visual loss (917247362) Vision loss (H54.7) ActiveconfirmedProblemCervical radiculopathy (82561110)Cervical radiculopathy (M54.12)ActiveconfirmedProblemGastroesophageal reflux disease (423630874)GERD (gastroesophageal reflux disease) (K21.9)Activeconfirmed Vital Signs Blood pressure systolic 110 mm Hg 04/30/20 25 Blood pressure diastolic 72 mm Hg 025 Height 65 in 04/30/2025 Weight 163.8 lbs 04/30/2025 BMI 27.25 kg/m2 04/30/2025 Encounters Encounter Location Date Provider Diagnosis [facility] [address] [place] [address] 04/30/2025 Abad Hoalex Hypertension I10 ; C oronary artery disease I25.10 ; Hypertriglyceridemia E78.1 ; Diabetes mellitus E11.9 ; GERD (gastroesophageal reflux disease) K21.9 ; Cervical radiculopathy M54.12 ; Vision loss H54.7 and Encounter for immunization Z23 Assessments Encounter Date Diagnosis (ICD Code) Assessment Notes Treatment Notes Treatment Clinical Notes Section Notes 04/30/2025 Hypertension (ICD-10 - I10) cuttoing back on coreg04/30/2025oronary artery disease (ICD-10 - I25.10) 04/30/2025Hypertriglyceridemia (ICD-10 - E78.1)04/30/2025Diabetes mellitus (ICD- 10 - E11.9)well bisxhfgl95/12/2025GERD (gastroesophageal reflux disease) (ICD-10 - K21.9)refill meds107/01/2024ervical radiculopathy (ICD-10 - M54.12)follow up on cervical canal titausbs95/12/2025Vision loss (ICD-10 - H54.7)04/30/2025 Encounter for immunization [...] CON 04/30/2025 MRI CSPINE WO CON 04/30/2025 CT angio neck 04/30/2025 Next Appt Details Provider Name:Abad Swann, 09:45:00 AM, [address] [place], [address], Progress Notes * Angie SERRA MDOB:1965 (59 yo F)Acc No.[id number]:04/30/2025 Progress Note Patient: Jennifer OLVERA Angie Avilez :?Noah Swann ([facility]), MDDOB:1965???Age: 59 Y???Sex:FemaleDate:04/30/2025Phone:[phone]:[address]Check In:09:20 AM ESTCheck Out:10:01 AM EST Subjective: [...] Problem List G43.909 Migraine headache Modified On:11/09/2022 Status:bvfuqkahpC00Tgzqgreltepc Modified On:11/09/2022 Status:alkttxiyxP23.10Coronary artery disease Modified On:11/09/2022 Status:javqqwkaeX74.9Osteoarthritis of knee Modified On:11/09/2022 Status:jcerautaqO12.41Acute combined systolic (congestive) and diastolic (congestive) heart failure Modified On:11/09/2022 Status:zmnwpblvqN26.1Hypertriglyceridemia Modified On:11/09/2022 Status:rasxorifxU58.90Hearing deficit Modified On:11/09/2022 Status:ftltnrddeV18.3Unifocal PVCs Modified On:11/09/2022 Status:qhiervoruO53.00Raynaud's disease Modified On:11/09/2022 Status:fiqiihrctX27.00Well adult Modified On:11/09/2022 Status:fvcndnhlkP14.9Diabetes mellitus Modified On:04/30/2024 Status:ipakposqrV03.812Cervical arthritis Modified On:04/30/2024 Status:ctjnwfahkZ07.512Shoulder pain, left Modified On:07/29/2024 Status:hhozjfzukZ45.9GERD (gastroesophageal reflux disease) Modified On:04/30/2025 Status:eggfmizxuB59.12Cervical radiculopathy Modified On:04/30/2025 Status:zmcnuxokjM17.7Vision loss Modified On:04/30/2025 Status:confirmed * Medical History: * Surgical History: [...] with Diabetes, Hypertension. S on(s): alive. D toñaer(s): alive, diagnosed with Diabetes, Hypertension. 2 brother(s) [...] 1 TABLET BY MOUTH ONCE DAILY Ipratropium [place] 0.06 % Solution USE 2 SPRAYS IN [...] TABLET BY MOUTH ONCE DAILY Taking Ipratropium [place] 0.06 % Solution USE 2 SPRAYS IN [...] Orally Taking Vitamin D (Cholecalciferol) 50 MCG (1999) Capsule [...] CT angio neck * Immunizations: Flu, Flucelvax (60497) 6 mos and older, single-dose syringe () : 0.5 mL (Route: Intramuscular) given by Sita Rodriguez , MR on Left Deltoid (Encounter for immunization) * Procedure Codes: 9 0661 FLU VACCINE-INTRMUSC [id number] IMMUNIZATION ADMIN. 1 VAC * Preventive Medicine: ??Screenings/Counseling:?BMI ACTION PLAN?Above Normal BMI Follow-up?Dietary management education, guidance, and counseling See treatment section of progress note for complete details of management plan. * * Sign off status: CompletedVisit Status:?CHK (Check Out) true * Provider: Bandar Swann ([facility])MD Date: 1 07/01/2024 Generated for Printing/Faxing/eTransmitting on:?05/11/2025 09:01 AM EST History and Physical Notes * [...]
--- OUTSIDE RECORDS SUMMARY | 2025-05-11 09:02 | XMS_ITS | Clinical Summary ---
Author Organization [facility] Address [address] [place] [address] Care Team Providers Care Sulky Driver Name Role Phone Unavailable Primary Care Provider Unavailabl e Social History Tobacco UseTypesPacks/DayYears UsedDateSmoking Tobacco: Never AssessedUT Safety & EnvironmentAnswerDate RecordedFear of Current or Ex-PartnerNot on file 07/11/2023Emotionally AbusedNot on file07/11/2023hysically AbusedNot on file 07/11/2023Sexually AbusedNot on file07/11/2023hysically or Sexually AbusedNot on file07/11/2023CommentsUnknownSex and Gender InformationValueDate RecordedSex Assigned at BirthNot on fileLegal DzbNsymdd74/30/2022 12:44 AM EDT Gender IdentityNot on fileSexual OrientationNot on file Plan of Treatment Not on file
--- OUTSIDE RECORDS SUMMARY | 2025-05-11 09:02 | XMS_ITS | Clinical Summary ---
Author Organization [facility] Address [address] [place] [address] Care Team Providers Care Tool Storage Attendant Name Role Phone Unavailable Primary Care Provider Unavailabl e Social History Tobacco UseTypesPacks/DayYears UsedDateSmoking Tobacco: Never Assessed CommentsUnknownSex and Gender InformationValueDate RecordedSex Assigned at Not on fileLegal CjxIvhssp08/15/2023 7:25 PM EDTGender IdentityNot on fileSexual OrientationNot on file Last Filed Vital Signs Vital SignReadingTime TakenCommentsBlood Pressure--Pulse--Temperature-- Respiratory Rate--Oxygen Saturation--Inhaled Oxygen Concentration--Yuktxh052 kg (230 lb)04/05/2021 12:00 PM XAPWwozcm305.1 cm (5' 5 )04/05/2021 12:00 PM ESTBody Mass Index38.27106/05/2020 12:00 PM EST Plan of Treatment DateTypeDepartmentCare Team (Latest Contact Info)Cyoghuseurq12/18/2026 8:00 AM ESTTelemedicine [facility] [address] [place] [place] [address] Jr. Vidal Maciel, DO [address] [place] [address] Insurance
--- OUTSIDE RECORDS SUMMARY | 2025-05-11 09:02 | XMS_ITS | Patient Health Record ---
Author Organization [facility] [place] Address [address] [place] [address] Care Team Providers Care Commercial Service Technician Name Role Phone Abad Valdez Primary Care Provider Allergies No Known Allergies Results Component Value Reference Range Notes CBC AUTO DIFF Reviewed date:10/19/2024 09:22:17 PM Interpretation: Performing Lab: Notes/Report: [facility] , White Blood Count 8.5 4.0-11.0 10 3/uL Red Blood Count4.274.20-5.40 10 6/bCTvykhfqakh85.012.0-16.0 g/pGCpfxeivczc91.1 36.0-48.0 %Mean Corpuscular Ngxptm05.981.0-99.0 fLMean Corpuscular Hemoglobin 30.426.7-34.0 pgMean Corpuscular HGB Conc32.429.9-35.2 g/dLRed Cell Distribution Width13.111.0-15.0 %Platelet Mxogb902805-344 10 3/uLMean Platelet Volume8.99.5- 13.5 fLNeutrophils Percent Auto65.243.0-75.0 %Lymphocytes Percent Auto21.320.5- 60.0 %Monocytes Percent Auto9.31.7-12.0 %Eosinophils Percent Auto3.40.9-7.0 % Basophils Percent Auto0.60.2-2.0 %Immature Granulocytes Pct Auto0.20.0-0.5 % Neutrophils Absolute Auto5.51.4-6.5 10 3/uLLymphocytes Absolute Auto1.81.2-3.8 10 3/uLMonocytes Absolute Auto0.80.3-0.8 10 3/uLEosinophils Absolute Auto0.30.0- 0.7 10 3/uLBasophils Absolute Auto0.10.0-0.1 10 3/uLImmature Granulocytes Abs Auto0.020.00-0.03 10 3/uLPerforming Lab:see noteML - [facility] LBECG 12 lead Reviewed date:10/19/2024 09:22:17 PM Interpretation: Performing Lab: Notes/Report: Source Facility: [place] [address] Electrocardiograph Report Signed Patient: MUNIRA SERRA MR#: [id number] : 1965 Acct:[id number] Age/Sex: 59 / F ADM Date: 10/19/24 Loc: ER Attending Dr: Ordering Physician: Berkley Danielle Date of Service: 10/19/24 Procedure(s): ECG 12 lead Accession Number(s): [id number] cc: [facility] Test Date: 2024-10-19 Pat Name: MUNIRA SERRA Department: Room: - Gender: Female Metrology Technician: : 1965 Requested By: 1854 Order Number: [id number] Reading MD: MARIO CONTRERAS M.D. Measurements Intervals [place] Rate: 79 P: 5 NM: 150 QRS: -4 QRSD: 78 T: 32 QT: 366 QTc: 400 Interpretive Statements 1100 Sinus rhythm 3114 Cannot rule out anterior myocardial infarction, age undetermined 3614 Cannot rule out inferior myocardial infarction, age undetermined 8102 Low QRS voltage in chest leads 9150 abnormal ECG Compared to ECG 09/19/2021 08:26:51 Ventricular premature complex(es) no longer present Myocardial infarct finding still present Electronically Signed On 10-19-2024 17:58:48 EDT by MARIO CONTRERAS M.D. Dictated By: MARIO CONTRERAS Signed By: 10/19/24 1759 DD/ 0948 TD/TT: Production Statistical Clerk:MELISSA tomosynthesis screening BI Reviewed date:02/25/2025 06:09:30 PM Interpretation: Performing Lab: Notes/Report: Source Facility: [facility] [place] [address] [place] [address] Mammography Report Signed Patient: MUNIRA SERRA MR#: [id number] : 1965 Acct:[id number] Age/Sex: 59 / F ADM Date: 02/25/25 Loc: MAMMO Attending Dr: Patti Valdez M.D. Ordering Physician: Patti Valdez M.D. Results: Date of Service: 02/25/25 Follow Up: Procedure(s): MM tomosynthesis screening BI Accession Number(s): [id number] cc: Patti Valdez M.D. Patient Name: MUNIRA SERRA MR#: [id number] : 1965 Exam Date: 02/25/2025 Ordering Doctor: DR PATTI VALDEZ . RADIOLOGY REPORT PROCEDURE: MM TOMOSYNTHESIS SCREENING BI COMPARISON: MM TOMOSYNTHESIS SCREENING BI, 02/24/2024. MG MAMM SCREEN FAROOQ W CAD, 11/24/2019. MG MAMM SCREEN FAROOQ W CAD, 10/27/2018. MG MAMM FAROOQ SCRN W CAD DIG, 05/28/2014. INDICATIONS: Screening Calculator Name NCI Breast Cancer Risk Assessment Tool 5 Year Breast Cancer Risk 1.20% Lifetime Breast Cancer Risk 5.70% Personal Breast Cancer No Personal Ovarian Cancer No Treatments None Family Cancers Grandmother-maternal with breast cancer at age 87. LOCATION: [facility] BREAST COMPOSITION: The breasts are heterogeneously dense, which may obscure small masses. FINDINGS: DIAGNOSTIC CATEGORY 1--NEGATIVE. RIGHT BREAST: No significant suspicious finding. LEFT BREAST: No significant suspicious finding. RECOMMENDATIONS: ROUTINE MAMMOGRAM AND CLINICAL EVALUATION IN 12 MONTHS. Dictated by: Chu He DO on 02/25/2025 at 14:37 Approved by: Chu He DO on 02/25/2025 at 14:39 Dictated By: Chu He M.D. Signed By: 02/25/25 1440 DD/ 1439 TD/TT: Production Statistical Clerk:Troponin I High Sensitivity Reviewed date:10/19/2024 09:22:17 PM Interpretation: Performing Lab: Notes/Report: [facility] ,Troponin I High Sensitivity8.14.0-51.3 pg/mL CUT-OFF POINTS HAVE BEEN ESTABLISHED BASED ON THE FOURTH UNIVERSAL DEFINITION OF MYOCARDIAL INFARCTION. THE UPPER REFERENCE LIMIT (URL) OF TROPONIN, DEFINED THE 99TH PERCENTILE OF cTnI DISTRIBUTION IN A REFERENCE POPULATION, HAS BEEN CONFIRMED THE DECISION THRESHOLD FOR ID DIAGNOSIS. 99TH PERCENTILE = 51.4 PG/ML NOTE: HIGH-SENSITIVITY TROPONIN ASSAY IS NOT INTENDED TO BE USED IN ISOLATION BUT SHOULD BE INTERPRETED IN CONJUNCTION WITH OTHER DIAGNOSTIC AND CLINICAL INFORMATION. Performing Lab:see noteML - [facility] LBProthrombin Time INR Reviewed date:10/19/2024 09:22:17 PM Interpretation: Performing Lab: Notes/Report: [facility] ,Prothrombin Time11.39.0-11.6 secINR1.07 DESIRED INR: 2.0-3.0 CONDITIONS NOT LISTED BELOW 2.5-3.5 FOR PROSTHETIC HEART VALVE REPLACEMENT 2.5-3.5 RECURRENT THROMBOSIS Performing Lab:see noteML - [facility] LBPROF 14(COMP METB) Reviewed date:10/19/2024 09:22:17 PM Interpretation: Performing Lab: Notes/Report: [facility] ,Unimlm064889-198 mmol/LPotassium4.63.5-5.1 mmol/XHshdjuyp60331-854 mmol/LCarbon Vqcqzhj71.721.0-32.0 mmol/LAnion Gap10.4Rnjobzu78955-233 mg/dLBlood Urea Toksxspg16.07.0-18.0 mg/dLCreatinine0.800.55-1.02 mg/dLEstimated GFR ( Zarina>60>=60 mL/min/1.73m 2Estimated GFR (Non- Sarah>60>=60 mL/min/1.73m 2BUN Creatinine Ratio32.5Butdllg1.28.5-10.1 mg/dLBilirubin Total1.00.2-1.0 mg/dL Aspartate Amino Mkjoadlzmcl7203-50 U/LAlanine Qxlnzngrdnwaigxt3002-13 U/L Alkaline Vshngtxqikf2841-427 U/LTotal Protein6.56.4-8.2 g/dLAlbumin Level3.53.4- 5.0 g/dLGlobulin3.0Albumin Globulin Ratio1.2Performing Lab:see note - [facility] LBMAGNESIUM Reviewed date:10/19/2024 09:22:17 PM Interpretation: Performing Lab: Notes/Report: [facility] ,Magnesium2.11.8-2.4 mg/dLPerforming Lab:see note - [facility] LB Troponin I High Sensitivity Reviewed date:10/19/2024 09:22:17 PM Interpretation: Performing Lab: Notes/Report: [facility] ,Troponin I High Sensitivity6.04.0-51.3 pg/mL CUT-OFF POINTS HAVE BEEN ESTABLISHED BASED ON THE FOURTH UNIVERSAL DEFINITION OF MYOCARDIAL INFARCTION. THE UPPER REFERENCE LIMIT (URL) OF TROPONIN, DEFINED THE 99TH PERCENTILE OF cTnI DISTRIBUTION IN A REFERENCE POPULATION, HAS BEEN CONFIRMED THE DECISION THRESHOLD FOR ID DIAGNOSIS. 99TH PERCENTILE = 51.4 PG/ML NOTE: HIGH-SENSITIVITY TROPONIN ASSAY IS NOT INTENDED TO BE USED IN ISOLATION BUT SHOULD BE INTERPRETED IN CONJUNCTION WITH OTHER DIAGNOSTIC AND CLINICAL INFORMATION. Performing Lab:see noteML - [facility] LB Reason For Referral No Information Medications Medication SIG (Take, Route, Frequency, Duration) Notes Start Date End Date Status Meloxicam 15 MG 1 tablet Orally Once a day; Duration: 30 d ays PRN 07/29/2024 ActiveMultivitaminIRONActiveAspirin Adult Low Dose 81 MG1 tablet Orally Once a day5ActiveTriamcinolone Acetonide 0.1 %1 application Externally bid 5ActiveEntresto 24-26 MG1 tablet Orally Twice a dayActiveEzetimibe 10 MGTAKE 1 TABLET BY MOUTH ONCE DAILY; Duration: 90ActiveIpratropium Lamoure 0.06 %USE 2 SPRAYS IN BOTH NOSTRILS TWICE DAILY; Duration: 90ActiveJardiance 10 MG TAKE 1 TABLET BY MOUTH ONCE DAILY; Duration: 90ActiveAtorvastatin Calcium 80 MG TAKE 1 TABLET BY MOUTH ONCE DAILY; Duration: 90ActiveCarvedilol 12.5 MG1 tablet with food Orally Twice a day; Duration: 90 daysActiveVitamin B + C Complex -as directed OrallyActiveVitamin D (Cholecalciferol) 50 MCG (2000 UT)2 capsule Orally Once a dayActiveColesevelam HCl 625 MGTAKE 4 TABLETS BY MOUTH ONCE DAILY; Duration: 90ActivePantoprazole Sodium 40 MGTAKE 1 TABLET BY MOUTH EVERY DAY; Duration: 90 daysActive Immunizations Vaccine Route Administration Date Status Comme nts Comirnaty Pfizer Syringe Pre -Filled 30 mcg/0.3 mL Unknown 03/05/2023 Administered Comirnaty Pfizer Syringe Pre-Filled 30 mcg/0.3 bCZqtdqpg00/10/2024Administered Flu, Flucelvax (47180) 6 mos and older, single-dose syringe (0486-3221)IM Exxwtoxesndpu50/12/2025dministeredFlu, FluLaval (51942) 6 mos and older, single-dose syringe(1401-0912)Jlissar3502/27/2024dministeredFlu, Fluzone (75369) 6 mos+, single-dose syringe/vial (2832-8980)Lgpltbp3803/05/2023dministered Social History Tobacco Use: Social History Observation Description Date Details (start date - stop date) Former Smoker 05/20/1980 - 05/20/1982 Tobacco Use/Smoking Question Answer Notes Patient is a former smoker When did you start smoking?05/20/1980When did you stop smoking?05/20/1982Alcohol Screen (Audit-C) Question Answer Notes Did you have a drink containing alcohol in the p ast year? No Ujxlge3OeagryxsmrflgpYksogqenQJBRR-L (Standard) Question Answer Notes Did you have a drink containing alcohol in the p ast year? No Mcigqc8ZjvucvxzwsnelwTtddwbty Problems Problem Type SNOMED Code ICD Code Onset Dates Problem Status W/U Status Risk Notes Problem Migraine variant wit h headache (disorder) (208008658) Migraine headache (G43.909) ActiveconfirmedProblemHypertension (15484207)Hypertension (I10)Activeconfirmed ProblemGastroesophageal reflux disease (834526821)GERD (gastroesophageal reflux disease) (K21.9)ActiveconfirmedProblemCervical radiculopathy (15128741)Cervical radiculopathy (M54.12)ActiveconfirmedProblemCoronary artery disease (67767002) Coronary artery disease (I25.10)ActiveconfirmedProblemOsteoarthritis of knee (494531981)Osteoarthritis of knee (M17.9)ActiveconfirmedProblemAcute combined systolic and diastolic heart failure (285427126138038)Acute combined systolic (congestive) and diastolic (congestive) heart failure (I50.41)Activeconfirmed ProblemHypertriglyceridemia (231609863)Hypertriglyceridemia (E78.1)Active confirmedProblemWell adult (074485001)Well adult (Z00.00)ActiveconfirmedProblem Shoulder joint pain (265326612)Shoulder pain, left (M25.512)Activeconfirmed ProblemFunctional visual loss (398374683)Vision loss (H54.7)Activeconfirmed ProblemHearing loss (94410609)Hearing deficit (H91.90)ActiveconfirmedProblem Ventricular premature depolarization (917834898)Unifocal PVCs (I49.3)Active confirmedProblemRaynaud's disease (876283798)Raynaud's disease (I73.00)Active confirmedProblemCervical arthritis (519180671)Cervical arthritis (M47.812)Active confirmedProblemDiabetes mellitus (84512102)Diabetes mellitus (E11.9)Active confirmed Vital Signs Blood pressure diastolic 72 mm Hg 04/30/2025 Itzgpg22 in04/30/2025lood pressure kguqkvzb000 mm Hg04/30/20257272Hxklci845.8 lbs 04/30/2025BMI27.25 kg/m204/30/2025 Encounters Encounter Location Date Provider Diagnosis [address] [address] 07/29/2024 Abad Valdez Acute combined systo lic (congestive) and diastolic (congestive) heart failure I50.41 ; Hypertension I10 ; Diabetes mellitus E11.9 ; Shoulder pain, left M25.512 and Well adult Z00.00 [facility] [address] [place] [address] 10/29/2024 Abad Valdez Hypertension I10 ; C oronary artery disease I25.10 ; Acute combined systolic (congestive) and diastolic (congestive) heart failure I50.41 and Diabetes mellitus E11.9 [facility] [address] [place] [address] 01/29/2025 Abad Valdez Well adult Z00.00 [facility] [address] [place] [address] 04/30/2025 Abad Valdez Hypertension I10 ; C oronary artery disease I25.10 ; Hypertriglyceridemia E78.1 ; Diabetes mellitus E11.9 ; GERD (gastroesophageal reflux disease) K21.9 ; Cervical radiculopathy M54.12 ; Vision loss H54.7 and Encounter for immunization Z23 [facility] [address] [place] [address] 12/01/2024 Abad Valdez [facility] [place] [address] [facility] [place] [address]/[facility] [place] [address]/01/2025[facility] [place] [address]/[facility] [place] [address]/06/2024 Adielalex Assessments Encounter Date Diagnosis (ICD Code) Assessment Notes Treatment Notes Treatment Clinical Notes Section Notes 07/29/2024 Hypertension (ICD-10 - I10) 5Acute combined systolic (congestive) and diastolic (congestive) heart failure (ICD-10 - I50.41)10/29/2024Hypertension (ICD-10 - I10)5Coronary artery disease (ICD-10 - I25.10)01/29/2025Well adult (ICD-10 - Z00.00)04/30/2025 Hypertension (ICD-10 - I10)cuttoing back on coreg5Coronary artery disease (ICD-10 - I25.10)04/30/2025Hypertriglyceridemia (ICD-10 - E78.1) 07/29/2024Diabetes mellitus (ICD-10 - E11.9)10/29/2024ute combined systolic (congestive) and diastolic (congestive) heart failure (ICD-10 - I50.41) 07/29/2024Shoulder pain, left (ICD-10 - M25.512)10/29/2024Diabetes mellitus (ICD-10 - E11.9)04/30/2025Diabetes mellitus (ICD-10 - E11.9)well contrled 04/30/2025GERD (gastroesophageal reflux disease) (ICD-10 - K21.9)refill meds 07/29/2024Well adult (ICD-10 - Z00.00)04/30/2025ervical radiculopathy (ICD-10 - M54.12)follow up on cervical canal oxrmculh43/12/2025Vision loss (ICD-10 - H54.7)04/30/2025Encounter for immunization (ICD-10 - Z23) Plan Of Treatment Pending Test Test Name Order Date CMP (COMPLETE METABOLIC PANEL) 3 HEMOGLOBIN A1C (GLYCO) 11/09/2022 HEMOGLOBIN A1C (GLYCO) 07/29/2024 IRON, TOTAL 07/29/2024 IRON, TOTAL 11/09/2022 LIPID PANEL (CHOL/TRIG/HDL/LDL) 11/10/19 LIPID PANEL (CHOL/TRIG/HDL/LDL) 07/30/19 25 CBC WITH DIFF (EXP 03/2025) 11/09/2022 VITAMIN D, 25 LEVEL (TOTAL) 11/09/2022 VITAMIN D, 25 LEVEL (TOTAL) 07/29/2024 MAMM Mammograms CAD 11/09/2022 VIT B12 AND FOLATE 11/09/2022 MRI BRAIN WO CON 04/30/2025 MRI CSPINE WO CON 04/30/2025 THYROID PANEL (T4/TSH/FREE T3) 5 THYROID PANEL (T4/TSH/FREE T3) 3 MM screening mammo BI 01/30/2024 MM screening mammo BI 01/29/2025 CT angio neck 04/30/2025 CMP (COMP MET MILLER) w/eGFR CKD-EPI 2024 CBC WITH DIFF 07/29/2024 Next Appt Details Provider Name:Abad Valdez, 09:45:00 AM, [address] [facility] [address], [place], [address], Insurance Providers Payer Name Payer Address Payer Phone Subscriber Number Group Number Insured Name Patient Relationship to Insured Coverage Start Date Coverage End Date [facility] PPO [address] [place] [address] [id number] Lesley Serra - patient is the insured Medical (General) History Medical History History ICD Code Unifocal PVCs I49.3 Acute combined systolic (con gestive) and diastolic (congestive) heart failure I50.41 Coronary artery disease I25.10 Benign neoplasm of right lung Migraine xvrkojgkQ70.051UopmcppkppsusbgtfwtiB11.1Osteoarthritis of kneeM17.9 SuiivxpcfgwsJ79Sggxqrk's ksfjsdkF27.00Hearing sshlloqQ82.90Surgical History Surgery Date(Month/Year) Hysterectomy, total CholecystectomyHeart Cath, Dr. Cohn09/2010Left Total hipT&ACardiac Stent
--- OUTSIDE RECORDS SUMMARY | 2025-05-11 09:02 | XMS_ITS | Clinical Summary ---
Author Organization [facility] Address [facility] [place] [address] Care Team Providers Care Pocket Setter Name Role Phone Noah Swann MD Primary Care Provider [phone] Reed Leon MD Unavailable [phone] Allergies No known active allergies Medications * This document contains information received from the source organization and may not represent a complete record from that organization. MedicationSigDispense QuantityRefillsLast FilledStart DateEnd DateStatus WELCHOL 625 mg tablet 1,875 mg once daily. 05/31/2020ctive pantoprazole DR (PROTONIX) 40 mg tablet Take 1 tablet by mouth once daily. 30 tablet ctive CPAP Please Expedite for upcoming surgery. Settings 5 - 15 cm H2O, suitable mask per pt preference, chinstrap, head gear, humidity, tubing, lifetime supplies. G47.33 RAYMUNDO 1 Each ctive empagliflozin (JARDIANCE) 25 mg tablet Take 1 tablet by mouth daily with breakfast. 90 tablet ctive vitamin b complex capsule Take 1 capsule by mouth once daily.Active atorvastatin (LIPITOR) 80 mg tablet Indications:Coronary artery disease involving tolowa dee-ni' coronary artery of tolowa dee-ni' heart, unspecified whether angina presenttake 1 tablet by mouth once daily 90 tablet ctive ezetimibe (ZETIA) 10 mg tablet take 1 tablet by mouth once daily 90 tablet ctive carvedilol (COREG) 12.5 mg tablet Take 1 tablet by mouth twice daily with meals.12/14/2022ctive aspirin, enteric coated (ASPIR-81) 81 mg EC tablet Take 1 tablet by mouth once daily. 90 tablet 3Active multivit-min/iron/folic acid/K (BARIATRIC MULTIVITAMINS ORAL) Take 1 tablet by mouth once daily.01/12/2022ctive ENTRESTO 24-26 mg tablet TAKE 1 TABLET BY MOUTH TWICE DAILY 180 tablet 5Active meloxicam (MOBIC) 15 mg tablet Take 15 mg by mouth once daily.Active ipratropium bromide (ATROVENT) 42 mcg (0.06 %) nasal spray Use 2 sprays in the nose three times a day.5Active Cholecalciferol, Vitamin D3, 50 mcg (2,000 unit) cap 2 capsules.Active cholecalciferol, vitamin D3, (VITAMIN D-3) 10 mcg (400 unit) cap 400 Units once daily.04/19/2022ctive Active Problems ProblemNoted DateDiagnosed TnmhXesqtoo32/28/2022Type 2 diabetes mellitus with morbid fxzttth5911/13/2021Heart failure with preserved ejection zoudeulk75/09/2022 Assessment & Plan (11/13/2021 1:58 PM EDT): Assessment: Torsemide, Entresto and Coreg. Monitored by Cardiology: Dr Gee, last OPV Most recent ECHO: 08/08/2021 - The left ventricle is normal in size. Left ventricular systolic function is normal. EF = 55 ?? 5% (2D biplane Acute on chronic heart failure with preserved ejection elxqiahr71/28/2022OSA (obstructive sleep apnea)04/10/2021 Overview (04/10/2021): BRIAN; Lupe # [phone]; FAX# [phone]; [phone]. Assessment & Plan (11/13/2021 8:15 AM EDT): Assessment: compliant with cpap. Coronary artery disease involving tolowa dee-ni' coronary artery of tolowa dee-ni' heart 10/06/2020 Assessment & Plan (11/13/2021 1:51 PM EDT): Assessment: monitored by Dr Gee, 10/26/2021 S/p stent: (10/06/2020) proximal LAD and proximal ??into mid LAD S/P drug eluting coronary stent odywhrvbo21/20/2021Morbid bywxkem9308/25/2020Mixed lmthmhzeyidpnz78/08/2021 Assessment & Plan (11/13/2021 1:58 PM EDT): Assessment: on daily medications. Gastroesophageal reflux disease without /08/2021 Assessment & Plan (11/13/2021 8:08 AM EDT): Assessment: daily protonix, stable. Diabetes mellitus type 2 in obese08/25/2020Obesity, Class III, BMI >= 40 08/12/2020 Assessment & Plan (11/13/2021 2:00 PM EDT): Assessment: Body mass index is 42.6 kg/m??. Bfrspxpg67/05/2010 Assessment & Plan (11/13/2021 8:04 AM EDT): Assessment: monthly injection Gabriella Has PRN Imitrex, last needed 2 weeks ago. Primary kllgeqekketu88/14/2005 Assessment & Plan (11/13/2021 7:54 AM EDT): Assessment: stable on PO coreg, entresto BP today: 113/57 Type 2 diabetes mellitus with hyperglycemia, with long-term current use of zifvfce0406/02/2001 Assessment & Plan (11/13/2021 8:09 AM EDT): Assessment: Rx lantus, but diet pre op bariatric surgery is just taking SS + Jardiance. Most recent hgbA1c: 8.6 (08/08/2021). Resolved Problems ProblemNoted DateDiagnosed DateResolved DateNSTEMI (non-ST elevated myocardial infarction) Immunizations ImmunizationAdministration DatesNext DueCOVID-19 original vaccine, age 12+ yr, monovalent (PFIZER-[employer]FLOZ - [place] TOP)08/08/2021neumococcal polysaccharide (PPV23) vaccine, 23 valent (PNEUMOVAX 23)08/10/2021 Family History Medical HistoryRelationCommentsDiabetesBrother 1HeartBrother 1Hyperlipidemia Brother 1HypertensionBrother 1ObesityBrother 1PacemakerBrother 1PciBrother 1No Known ProblemsBrother 2CancerFatherDiabetesFatherHeart AttackFatherHeart Failure FatherHyperlipidemiaFatherHypertensionFatherObesityFatherStrokeFathercabgx3 FatherCoronary Artery DiseaseMaternal GrandfatherDiabetesMotherHyperlipidemia MotherHypertensionMotherObesityMotherDiabetesPaternal GrandmotherHypertension Paternal GrandmotherDiabetesSisterHyperlipidemiaSisterHypertensionSisterObesity SisterRelationStatusCommentsBrother 1AliveBrother 2AliveFatherAliveMaternal GrandfatherDeceasedMaternal GrandmotherDeceasedMotherAlivePaternal Grandfather DeceasedPaternal GrandmotherDeceasedSisterAlive Social History Tobacco UseTypesPacks/DayYears UsedDateSmoking Tobacco: FormerCigarettes0.514.3 07/14/1969 - 11/1983Smokeless Tobacco: Never Tobacco Cessation:Counseling Given: Not Answered Alcohol UseStandard Drinks/WeekCommentsYes2 (1 standard drink = 0.6 oz pure alcohol)occasionallyPHQ-2AnswerDate RecordedPHQ-2 hgprw3765Area Deprivation IndexAnswerDate RecordedNational Score (1-100), lower number is lower riskNot on file06/08/2020tate Score (1-10), lower number is lower riskNot on file06/08/2020ata from: https://www.neighborhoodatlas.medicine.[facility].edu/. Last address used for calculationNot on file06/08/2020CommentsNoSex and Gender InformationValueDate RecordedSex Assigned at UistwHvignw40/14/2021 12:02 PM ESTLegal YbtWyxane94/06/2021 2:39 PM ESTGender QjnahdxzYopfsj80/14/2021 12:02 PM ESTSexual CowvapmdvwtFvplsrvn54/14/2021 12:02 PM EST Last Filed Vital Signs Vital SignReadingTime TakenCommentsBlood Wnokfqhc377/6909/12/2024 3:57 PM EDT Jxxer329801/25/2025 3:57 PM AQCHorxurmwzki04.2 ??C (99 ??F)11/16/2021 1:38 PM EDT Respiratory Rxht9145 8:22 AM EDTOxygen Jmrnmdvlvk43%01/25/2025 3:57 PM EDTInhaled Oxygen Concentration--Montrv49.8 kg (165 lb)01/25/2025 3:57 PM EDT Eeeokm567.1 cm (5' 5 )01/25/2025 3:57 PM EDTBody Mass Index27.46001/25/2025 3:57 PM EDT Plan of Treatment Health MaintenanceDue DateLast DoneCommentsDiabetic Foot Exam1973Dilated Retinal Exam1973Urine Albumin:Creatinine Ratio1973Annual PCP Team Chronic Disease Visit1981Anxiety Nmwizomho06/24/1982Depression Screening 1981HIV Mumnwqauz18/24/1982Hepatitis C Jpcfnniaw51/24/1982DTaP,Tdap,Td Vaccine (1 - Tdap)1982Cervical Cancer Ssnivwppy28/24/1985Mammogram Jeewxdvhl07/24/2004CT Rgxknfutmjip00/24/2009Cologuard (FIT-DNA)2008Fecal Occult Blood07/13/20088650Ostjjcokylhql15/24/2009RSV Vaccine (1 - Risk 50-74 years 1-dose series)07/13/20137379Khmocnauczn05/12/202202/04/2021, 1Colorectal Cancer Wuammtvoj56/12/6407XdV7D46, 08/08/2021, 02/15/2021, Additional history existsPneumococcal Vaccine: 50+ (2 of 2 - PCV)08/10/2022 2Covid-19 Vaccine (6 - 2024- season), 03/05/2023, 08/08/2021, Additional history existsInfluenza Vaccine (#1), 03/05/2023, 02/19/2022, Additional history existsLDL Ektelauzdkm73/08/2026 01/25/2025, 10/26/2021, 02/15/2021, Additional history existsShingrix Vaccine Mlhdotltd36/16/2022, 10/19/2021 Goals GoalPatient Goal TypeAssociated ProblemsRecent ProgressPatient-Stated?Author Blood Pressure < 130/80 Blood Mkypmocm931/69(01/25/2025 3:57 PM EDT)Johanne Woodard MD Procedures Procedure NamePriorityDate/TimeAssociated DiagnosisCommentsLIPID PANEL, FASTING Sxatodz8701/25/2025 11:02 AM EDT Heart failure with preserved ejection fraction, unspecified HF chronicity (HCC) Coronary artery disease involving tolowa dee-ni' coronary artery of tolowa dee-ni' heart, unspecified whether angina present Primary hypertension Mixed hyperlipidemia Obesity, Class III, BMI 40-49.9 (morbid obesity) (HCC) Type 2 diabetes mellitus with hyperglycemia, with long-term current use of insulin ([facility]) S/P drug eluting coronary stent placement Gastroesophageal reflux disease without esophagitis HEMOGLOBIN F6LKksjkja87/27/2022 8:45 AM EDT Pre-op evaluation Morbid obesity (HCC) Primary hypertension Heart failure with preserved ejection fraction, unspecified HF chronicity (HCC) Migraine without status migrainosus, not intractable, unspecified migraine type Gastroesophageal reflux disease without esophagitis Type 2 diabetes mellitus with hyperglycemia, with long-term current use of insulin ([facility]) RAYMUNDO (obstructive sleep apnea) XCQUOEVTHCYNlofrkz75/12/2021 9:43 AM EST from Last 3 Months or Most Recently Relevant to Health Maintenance Results * LIPID PANEL BASIC (01/25/2025 11:02 AM EDT)ComponentValueRef RangeTest Method Analysis TimePerformed AtPathologist SignatureCholesterol, Total90<200 mg/dL 01/25/2025 2:02 PM [facility]: <200 mg/dL, Desirable 200-239 mg/dL, Borderline high >239 mg/dL, High Oidkrhvynkqv382<150 mg/dL01/25/2025 2:02 PM [facility] Comment: <150 mg/dL, Normal 150-199 mg/dL, Borderline high 200-499 mg/dL, High >499 mg/dL, Very high HDL Dsmyyazvmff91>39 mg/dL01/25/2025 2:02 PM [facility] Comment: 40-59 mg/dL, Acceptable >59 mg/dL, High: Negative risk factor for coronary heart disease <40 mg/dL, Low: Positive risk factor for coronary heart disease LDL Cholesterol, Yrkdbvasij49<100 mg/dL01/25/2025 2:02 PM [facility]Comment: <100 mg/dL, Optimal 100-129 mg/dL, Near optimal/above optimal 130-159 mg/dL, Borderline high 160-189 mg/dL, High >189 mg/dL, Very high Secondary prevention optimal LDL Cholesterol levels are recommended to be <70 mg/dL LDL cholesterol is calculated using the Coates-NIH equation. Non HDL Kwdgixgkcaq96<130 mg/dL01/25/2025 2:02 PM [facility]Comment: <130 mg/dL, Optimal 130-159 mg/dL, Near optimal/above optimal 160-189 mg/dL, Borderline high 190-219 mg/dL, High >219 mg/dL, Very high Secondary prevention optimal non HDL Cholesterol levels are recommended to be <100 mg/dL VLDL Ubshoitflww66<30 mg/dL01/25/2025 2:02 PM [facility] LABTC:HDL Ratio1.91<5.1009 2:02 PM [facility] LDL:HDL Ratio0.47<2.5409 2:02 PM [facility] Comment: Reference: 1. National Cholesterol Education Program ATP III Guideline At-A-Glance Quick Desk Reference: National Heart, Lung, and Blood [place]. National Institutes of Health. 2001: NIH Publication No. 01-3305. 2. An International Atherosclerosis Society position paper: global recommendations for the management of dyslipidemia: executive summary, Atherosclerosis. 2014: 232(2):410-413. Fasting Pngk94llv72/08/2025 2:02 PM [facility] LABComment:2 Specimen (Source)Anatomical Location / LateralityCollection Method / Volume Collection TimeReceived TimeBloodBLOOD SPECIMEN / UnknownVenipuncture / Unknown 01/25/2025 11:02 AM EDT01/25/2025 11:02 AM EDT Narrative Authorizing ProviderResult TypeResult StatusJohanne Gee MDLABORATORYFinal ResultPerforming OrganizationAddressCity/State/ZIP CodePhone Number [facility] [id number] [place] [address], [place] * (ABNORMAL) HGB A1C (11/13/2021 8:45 AM EDT)ComponentValueRef RangeTest Method Analysis TimePerformed AtPathologist SignatureHemoglobin A1C8.2(H)4.3 - 5.6 % 11/13/2021 3:56 PM [facility]Comment:[place] Diabetes Association guidelines indicate that patients with HgbA1c in the range 5.7-6.4% are at increased risk for development of diabetes, and intervention by lifestyle modification may be beneficial. HgbA1c greater or equal to 6.5% is considered diagnostic of diabetes.Estimated Average Glucose 189mg/dL11/13/2021 3:56 PM [facility] LABComment:eAG: (Estimated average glucose) is a calculated value from HgbA1c and is business representative of the average blood glucose level in the last 2-3 month period.Specimen (Source)Anatomical Location / LateralityCollection Method / VolumeCollection TimeReceived TimeBloodBLOOD SPECIMEN / UnknownVenipuncture / Rjbjznf4111/13/2021 8:45 AM EDT11/13/2021 8:45 AM EDT Narrative Authorizing ProviderResult TypeResult StatusSusy Barraza APRN.CNPLABORATORY Final ResultPerforming OrganizationAddressCity/State/ZIP CodePhone Number [facility] [address] [facility] [address] [place] [address], [place] * COLONOSCOPY (07/01/2020 9:43 AM EST)ComponentValueRef RangeTest MethodAnalysis TimePerformed AtPathologist SignatureTranscriptionFairview [facility] Patient Name: Munira Serra Procedure Date: 07/01/2020 9:43 AM Date of : 1965 Admit Type: Outpatient Age: 54 Room: [facility] Room 2 Gender: Female Note Status: Finalized Attending MD: Salbador Hernandez MD Procedure: ?Colonoscopy Indications: ?Screening for colorectal malignant neoplasm Providers: ?Salbador Hernandez MD, Maye Irene RN, Seamus ?AUGUSTUS Walter (Assisting Nurse) Patient Profile: ?This is a 54 year old female. Refer to note in ?patient chart for documentation of history and ?physical. Last Colonoscopy: June 2020. Referring Physician: ? Medicines: ?Midazolam 3 mg IV, Fentanyl 75 micrograms IV Complications: ?No immediate complications. Procedure: ?Pre-Anesthesia Assessment: ?- Prior to the procedure, a History and Physical ?was performed, and patient medications and ?allergies were reviewed. The patient is ?competent. The risks and benefits of the ?procedure and the sedation options and risks ?were discussed with the patient. All questions ?were answered and informed consent was obtained. ?Patient identification and proposed procedure ?were verified by the physician and the nurse in ?the endoscopy suite. Mental Status Examination: ?alert and oriented. Airway Examination: normal ?oropharyngeal airway and neck mobility. ?Respiratory Examination: clear to auscultation. ?CV Examination: normal. Prophylactic ?Antibiotics: The patient does not require ?prophylactic antibiotics. Prior Anticoagulants: ?The patient has taken no previous anticoagulant ?or antiplatelet agents. ASA Grade Assessment: II ?- A patient with mild systemic disease. After ?reviewing the risks and benefits, the patient ?was deemed in satisfactory condition to undergo ?the procedure. The anesthesia plan was to use ?moderate sedation / analgesia (conscious ?sedation). Immediately prior to administration ?of medications, the patient was re- assessed for ?adequacy to receive sedatives. The heart rate, ?respiratory rate, oxygen saturations, blood ?pressure, adequacy of pulmonary ventilation, and ?response to care were monitored throughout the ?procedure. The physical status of the patient ?was re-assessed after the procedure. ?After I obtained informed consent, the scope was ?passed under direct vision. Throughout the ?procedure, the patient's blood pressure, pulse, ?and oxygen saturations were monitored ?continuously. The Colonoscope was introduced ?through the anus and advanced to the cecum, ?identified by the appendiceal orifice, ileocecal ?valve and palpation. The colonoscopy was ?performed with difficulty due to a redundant ?colon. Successful completion of the procedure ?was aided by applying abdominal pressure. The ?patient tolerated the procedure well. The ?quality of the bowel preparation was adequate to ?identify polyps. The ileocecal valve, ?appendiceal orifice, and rectum were ?photographed. Scope Withdrawal Time: 0 hours 13 minutes 41 seconds Moderate Sedation: ? The administration of moderate sedation was initiated at 10:00 AM. ? Moderate (conscious) sedation was administered by the endoscopy nurse ? and supervised by the endoscopist. The patient's oxygen saturation, ? heart rate, blood pressure and response to care were monitored. Total Procedure Duration: 0 hours 39 minutes 9 seconds Findings: ? The perianal and digital rectal examinations were normal. ? The entire examined colon appeared normal on direct and retroflexion ? views. Impression: ? - The entire examined colon is normal on direct ?and retroflexion views. ?- No specimens collected. Recommendation: ? - Discharge patient to home. ?- Resume previous diet. ?- Continue present medications. ?- Repeat colonoscopy in 10 years for screening ?purposes. ?- Return to primary care physician as previously ?scheduled. ?- Patient has a contact number available for ?emergencies. The signs and symptoms of potential ?delayed complications were discussed with the ?patient. Return to normal activities tomorrow. ?Written discharge instructions were provided to ?the patient. Attending Participation: ? I was present and participated during the entire procedure, including ? non-paul portions. Scope In: 10:04:45 AM Scope Out: 10:43:54 AM MD Salbador Riddle MD 07/01/2020 10:47:22 AM This report has been signed electronically by Salbador Hernandez MD Number of Addenda: 0 Note Initiated On: 07/01/2020 9:43 AM Estimated Blood Loss: ? Estimated blood loss: none.[facility] INSTITUTESpecimen (Source)Anatomical Location / LateralityCollection Method / VolumeCollection TimeReceived Time07/01/2020 9:43 AM EST Narrative Authorizing ProviderResult TypeResult StatusJejose david Hernandez MDDIGESTIVE DISEASE REGIONALFinal ResultPerforming OrganizationAddressCity/State/ZIP CodePhone Number [facility] [address] [place] [address] [facility] from Last 3 Months or Most Recently Relevant to Health Maintenance Insurance Advance Directives * Full Code (Latest Code Status on File) Date ActivatedDate InactivatedComments08/07/2021 10:39 PM08/12/2021 6:19 PM QuestionAnswerCommentsFull Code Order Discussed With:* Patient Care Teams Team MemberRelationshipSpecialtyStart DateEnd Noah Swann MD PCP - GeneralFamily Medicine06/16/20 Reed Leon MD [address] [place] [address] Primary Staff PhysicianCardiology11/08/20
--- OUTSIDE RECORDS SUMMARY | 2025-05-11 09:02 | XMS_ITS | Clinical Summary ---
Author Organization [employer] [facility] [employer] Address [id number] [place] [address] Care Team Providers Care Asset Coordinator Name Role Phone Unavailable Primary Care Provider Unavailabl e Social History Tobacco UseTypesPacks/DayYears UsedDateSmoking Tobacco: Never AssessedChildcare AnswerDate SkbqdrqfJycjhsxlmCrtiyvv20/12/2019EmploymentAnswerDate Recorded BalrxvxqxaThogzkk04/12/2019CommentsUnknownSex and Gender Information ValueDate RecordedSex Assigned at BirthNot on fileLegal YzaJonvht35/06/2015 11:32 AM EDTGender IdentityNot on fileSexual OrientationNot on file Plan of Treatment Not on file Medical Devices Not on file
--- NOTE | 2025-05-11 09:16 | CT_ITS ---
The [address] [address] Patient Name: MUNIRA CALHOUN MRN: [id number] date: 1965 Sex: F Assigned Patient Location: LAB Current Patient Location: LAB Accession/Order Number: [id number] Exam Date: 05/11/2025 09:52 Report Date: 05/11/2025 11:29 At the request of: PATTI VALDEZ MD Procedure: CT angio neck CTA OF THE NECK WITH CONTRAST CLINICAL DATA: Blurred vision in right eye for the past 2 months. Dizziness. COMPARISON: None Spiral images were obtained through the neck following 100 mL of opaque 350. Sagittal coronal MIP as well as 3-D volume rendered reconstructions of the carotid and vertebral arteries were reviewed. Stenosis is evaluated using NASCET criteria. This CT exam was performed using one or more following dose reduction techniques: Automated exposure control, adjustment of the mA and/or kV according to patient size, or use of iterative reconstruction technique. The aortic arch and proximal great vessels show no significant abnormalities. There are symmetric caliber vertebral arteries showing no stenosis or dissection. There is a small amount of plaque at the carotid bulb and proximal internal carotid artery on the right where there is well under 50% luminal narrowing. There is moderate plaque at the carotid bulb and proximal internal carotid artery on the left. There is a segment of the proximal internal carotid artery on that side with luminal narrowing approaching 50%. There is no vascular occlusive disease in the mnjhn-kd-gols. There is degenerative change at the cervical spine, greatest at C5-6 and C6-7. The imaged paranasal sinuses and mastoid air cells are clear. The upper imaged lungs show no contributory findings. CT/CT angio neck IMPRESSION: CAROTID ARTERY PLAQUE, WITHOUT HEMODYNAMICALLY SIGNIFICANT STENOSIS OR VASCULAR OCCLUSIVE DISEASE. NO SIGNIFICANT VERTEBRAL ABNORMALITIES. Impression dictated by: Radha Garcia M.D. 05/11/2025 11:29 AM Dictation Location: [employer] Electronically authenticated by: [id number] Y Date: 05/11/2025 11:29
[2025-05-11 09:38] LABS: Estimated GFR (African America >60 (>=60 mL/min/1.73m^2); Estimated GFR (Non-African Ame >60 (>=60 mL/min/1.73m^2)
== END 2025-05-11 09:00 | disposition home or self-care (01) ==
LOC: LAB 09:00
PROVIDERS: Pathology Anatomic Pathology & Clinical Pathology; PCP Family Medicine; Visit Provider Family Medicine
DX: H54.7 Unspecified visual loss (principal); M54.12 Radiculopathy, cervical region
CPT/HCPCS: 36415; 70498; 82565; Q9967

== ENCOUNTER 2025-05-12 06:44 | Outpatient (OUT) | payer BC, SELFPAY ==
--- OUTSIDE RECORDS SUMMARY | 2025-04-30 04:30 | XMS_ITS ---
Author Organization [facility] in [place] Address [address] [place] [address] Care Team Providers Care Motor Vehicle License Clerk Name Role Phone Abad Valdez Primary Care Provider Allergies No Known Allergies Results Component Value Reference Range Notes CT angio neck Reviewed date:05/11/2025 01:16:38 PM Interpretation: Performing Lab: Notes/Report: Source Facility: [place] [address] CT Scan Report Signed Patient: MUNIRA SERRA MR#: [id number] : 1965 Acct:[id number] Age/Sex: 59 / F ADM Date: 05/11/25 Loc: LAB Attending Dr: Patti Valdez M.D. Ordering Physician: Patti Valdez M.D. Date of Service: 05/11/25 Procedure(s): CT angio neck Accession Number(s): [id number] cc: Patti Valdez M.D. [place] [address] Patient Name: MUNIRA SERRA MRN: [id number] date: 1965 Sex: F Assigned Patient Location: LAB Current Patient Location: LAB Accession/Order Number: [id number] Exam Date: 05/11/2025 09:52 Report Date: 05/11/2025 11:29 At the request of: PATTI VALDEZ MD Procedure: CT angio neck CTA OF THE NECK WITH CONTRAST CLINICAL DATA: Blurred vision in right eye for the past 2 months. Dizziness. COMPARISON: None Spiral images were obtained through the neck following 100 mL of opaque 350. Sagittal coronal MIP as well as 3-D volume rendered reconstructions of the carotid and vertebral arteries were reviewed. Stenosis is evaluated using NASCET criteria. This CT exam was performed using one or more following dose reduction techniques: Automated exposure control, adjustment of the mA and/or kV according to patient size, or use of iterative reconstruction technique. The aortic arch and proximal great vessels show no significant abnormalities. There are symmetric caliber vertebral arteries showing no stenosis or dissection. There is a small amount of plaque at the carotid bulb and proximal internal carotid artery on the right where there is well under 50% luminal narrowing. There is moderate plaque at the carotid bulb and proximal internal carotid artery on the left. There is a segment of the proximal internal carotid artery on that side with luminal narrowing approaching 50%. There is no vascular occlusive disease in the voqfq-nj-myrw. There is degenerative change at the cervical spine, greatest at C5-6 and C6-7. The imaged paranasal sinuses and mastoid air cells are clear. The upper imaged lungs show no contributory findings. CT/CT angio neck IMPRESSION: CAROTID ARTERY PLAQUE, WITHOUT HEMODYNAMICALLY SIGNIFICANT STENOSIS OR VASCULAR OCCLUSIVE DISEASE. NO SIGNIFICANT VERTEBRAL ABNORMALITIES. Impression dictated by: Radha Garcia M.D. 05/11/2025 11:29 AM Dictation Location: [place] [address] Electronically authenticated by: [id number] Y Date: 05/11/2025 11:29 Dictated By: Radha Garcia M.D. 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 Has been to eye doctor and they did not find anything wrong. Right eye is worse then the left Medications Medication SIG (Take, Route, Frequency, Duration) Notes Start Date End Date Status Pantoprazole Sodium 40 MG TAKE 1 TABLET BY MOUTH EVERY DAY; Duration: 90 days ActiveAspirin Adult Low Dose 81 MG1 tablet Orally Once a day5Active Triamcinolone Acetonide 0.1 %1 application Externally bid5ActiveVitamin B + C Complex -as directed OrallyActiveVitamin D (Cholecalciferol) 50 MCG (1999)2 capsule Orally Once a dayActiveMeloxicam 15 MG1 tablet Orally Once a day; Duration: 30 onutKHV04/12/2025ActiveMultivitaminIRONActiveCarvedilol 12.5 MG1 tablet with food Orally Twice a day; Duration: 90 daysActiveIpratropium [place] 0.06 %USE 2 SPRAYS IN BOTH NOSTRILS TWICE DAILY; Duration: 90ActiveJardiance 10 MGTAKE 1 TABLET BY MOUTH ONCE DAILY; Duration: 90ActiveEntresto 24-26 MG1 tablet Orally Twice a dayActiveEzetimibe 10 MGTAKE 1 TABLET BY MOUTH ONCE DAILY; Duration: 90ActiveColesevelam HCl 625 MGTAKE 4 TABLETS BY MOUTH ONCE DAILY; Duration: 90ActiveAtorvastatin Calcium 80 MGTAKE 1 TABLET BY MOUTH ONCE DAILY; Duration: 90Active Immunizations Vaccine Route Administration Date Status Comme nts Flu, Flucelvax (65458) 6 mos and older, single-dose syringe (1030-2600) IM Intramuscular 04/30/2025 Administered Social History Tobacco Use: Social History Observation Description Date Details (start date - stop date) Former Smoker 05/20/1980 - 05/20/1982 Tobacco Use/Smoking Question Answer Notes Patient is a former smoker When did you start smoking?05/20/1980When did you stop smoking?05/20/1982AUDIT-C (Standard) Question Answer Notes Did you have a drink containing alcohol in the p ast year? No Omrymp1HhhrtqpyhpjprzPrlmhykr Problems Problem Type SNOMED Code ICD Code Onset Dates Problem Status W/U Status Risk Notes Problem Gastroesophageal ref lux disease (258810756) GERD (gastroesophageal reflux disease) (K21.9) ActiveconfirmedProblemCervical radiculopathy (95430605)Cervical radiculopathy (M54.12)ActiveconfirmedProblemFunctional visual loss (828503133)Vision loss (H54.7)Activeconfirmed Vital Signs Weight 163.8 lbs 04/30/2025 Height 65 in 04/30/2025 Blood pressure systolic 110 mm Hg 04/30/20 25 Blood pressure diastolic 72 mm Hg 025 BMI 27.25 kg/m2 04/30/2025 Encounters Encounter Location Date Provider Diagnosis [facility] [address] [place] [address] 04/30/2025 Abad Valdez Hypertension I10 ; C oronary artery disease I25.10 ; Hypertriglyceridemia E78.1 ; Diabetes mellitus E11.9 ; GERD (gastroesophageal reflux disease) K21.9 ; Cervical radiculopathy M54.12 ; Vision loss H54.7 and Encounter for immunization Z23 Assessments Encounter Date Diagnosis (ICD Code) Assessment Notes Treatment Notes Treatment Clinical Notes Section Notes 04/30/2025 Hypertension (ICD-10 - I10) cuttoing back on coreg5Coronary artery disease (ICD-10 - I25.10) 04/30/2025Hypertriglyceridemia (ICD-10 - E78.1)04/30/2025Diabetes mellitus (ICD- 10 - E11.9)well azmkgtdd80/12/2025GERD (gastroesophageal reflux disease) (ICD-10 - K21.9)refill meds15Cervical radiculopathy (ICD-10 - M54.12)follow up on cervical canal etznwgjw37/12/2025Vision loss (ICD-10 - H54.7)04/30/2025 Encounter for immunization (ICD-10 - Z23) Plan Of Treatment Medication Medication Name Sig Start Date Stop Date Notes Carvedilol 12.5 MG 1 tablet with food Orally Twi ce a day; Duration: 90 days Treatment Notes Assessment Notes Hypertension cuttoing back on cor eg Diabetes mellitus well contrled GERD (gastroesophageal reflux disease) r efill meds Cervical radiculopathy follow up on cerv ical canal stenosis Pending Test Test Name Order Date MRI BRAIN WO CON 04/30/2025 MRI CSPINE WO CON 04/30/2025 Next Appt Details Provider Name:Abad Valdez, 09:45:00 AM, [address] [place], [address], Progress Notes * Munira SERRA MDOB:1965 (59 yo F)Acc No.[id number]:04/30/2025 Progress Note Patient: Munira BROWN :?Patti Valdez ([facility]), MDDOB:1965???Age: 59 Y???Sex:FemaleDate:04/30/2025Phone:[phone]:[address], [place], [id number] In:09:20 AM ESTCheck Out:10:01 AM EST Subjective: * Chief Complaints: * P resents to office alone for 3 month check upc/o double and blurry vision x3 months. Has been to eye doctor and they did not find anything wrong. Right eye is worse then the left * HPI: ???General:? Seing eye Dr - R eye is worse - seen retinal specialist -? DM - sugars - 110's HTN - bp well cntroled. * ROS: ???EENT:?hearing changes?denies.?visual changes?denies. non-healing mouth sores?denies.?swollen glands or neck lumps?denies.?hoarseness?denies.?sore throat?denies.?difficulty swallowing?denies.?nose bleeds?denies.?nasal congestion?denies.?ear ache?denies.?ear discharge denies.?ringing in ears?denies.?light sensitivity?denies.?eye pain?denies.?blurring?denies.?eye irritation?denies.?double vision?denies. vision loss?denies.?General/Constitutional:?Sweats:?Denies.?Fatigue?denies.?Sleep proble ms?denies.?Anorexia?denies.?Malaise?denies.?Weight loss?denies. Fatigue or Weakness?denies.?Fever or Chills?denies.?Cardiovascular:?Shortness of Breath w/lying flat?denies.?Lightheadedne ss/dizziness?denies.?Chest tightness/ heavy pressure?denies.?Swelling of legs, a nkles, or feet?denies.?Waking up with shortness of breath?denies.?Chest pain&#16 0;denies.?Palpitations?denies.?Weight gain?denies.?Respiratory:?Chronic or frequent cough?denies.?Coughing up blood&#1 60;denies.?Difficulty breathing?denies.?Productive cough?denies.?Snoring&#1 60;denies.?Shortness of breath that awakens from sleep (PND)?denies.?Chest pain? denies.?Sputum production?denies.?Wheezing?denies.?Musculoskeletal:?Joint pain?denies.?Joint Fluid?denies.?Backpain?denies.?Knee pain?denies.?Neck pain?denies.?Joint Stiffness?denies.?Muscle cramps?denies.?Weakness of muscles?denies.?Arthritis?denies.?Muscle aches?denies.?Pain in shoulder(s)?denies.?Swollen joints?denies.? * Active Problem List G43.909 Migraine headache Modified On:11/09/2022U Status:hkmctmfvfM97Uxscuueggayc Modified On:11/09/2022U Status:ujdilyuygS14.10Coronary artery disease Modified On:11/09/2022U Status:robxqoqydJ79.9Osteoarthritis of knee Modified On:11/09/2022U Status:dfmhxhrigS59.41Acute combined systolic (congestive) and diastolic (congestive) heart failure Modified On:11/09/2022U Status:nqtzvvkbvM08.1Hypertriglyceridemia Modified On:11/09/2022U Status:whfnynhnjE54.90Hearing deficit Modified On:11/09/2022U Status:llvboyuzlI16.3Unifocal PVCs Modified On:11/09/2022U Status:dbielfjqfH56.00Raynaud's disease Modified On:11/09/2022U Status:pbieolhuvF40.00Well adult Modified On:11/09/2022/U Status:luledevobJ15.9Diabetes mellitus Modified On:04/30/2024/U Status:vuaamcricB29.812Cervical arthritis Modified On:04/30/2024U Status:tsrtskblxX96.512Shoulder pain, left Modified On:07/29/2024 Status:ahguedmzkB62.9GERD (gastroesophageal reflux disease) Modified On:04/30/2025U Status:clajbumbhG69.12Cervical radiculopathy Modified On:04/30/2025U Status:flgtepuynC17.7Vision loss Modified On:04/30/2025U Status:confirmed * Medical History: * Surgical History: H eart Cath, Dr. Cohn 09/2010Cholecystectomy Hysterectomy, total Cardiac Stent T&A Left Total hip * Hospitalization/Major Diagno stic Procedure: * Family History: F ather: alive, diagnosed with Diabetes, Hypertension, Heart Disease. M other: alive, diagnosed with Diabetes, Hypertension. B rother(s): alive, Cardiac stents and pacemaker, diagnosed with Diabetes, Hypertension. S ister(s): alive, diagnosed with Diabetes, Hypertension. S on(s): alive. D brittany(s): alive, diagnosed with Diabetes, Hypertension. 2 brother(s) , 1 sister(s) . 1 son(s) , 1 daughter(s) - healthy. . * Social History: ???Tobacco Use:?Tobacco Use/Smoking?Patient is a?former smoker ?When did you start smoking??05/20/1980 ?When did you stop smoking??05/20/1982 ???Drug/Alcohol:?AUDIT-C (Standard)?Did you have a drink containing alcohol in the past year??No ?Points?0 ?Interpretation?Negative * Medications: T akingAspirin Adult Low Dose(Aspirin) 81 MG Tablet Delayed Release 1 tablet Orally Once a day Atorvastatin Calcium 80 MG Tablet TAKE 1 TABLET BY MOUTH ONCE DAILY Carvedilol 25 MG Tablet 1 tablet with food Orally Twice a day Colesevelam HCl 625 MG Tablet TAKE 4 TABLETS BY MOUTH ONCE DAILY Entresto(Sacubitril-Valsartan) 24-26 MG Tablet 1 tablet Orally Twice a day Ezetimibe 10 MG Tablet TAKE 1 TABLET BY MOUTH ONCE DAILY Ipratropium [place] 0.06 % Solution USE 2 SPRAYS IN BOTH NOSTRILS TWICE DAILY Jardiance(Empagliflozin) 10 MG Tablet TAKE 1 TABLET BY MOUTH ONCE DAILY Meloxicam 15 MG Tablet 1 tablet Orally Once a day , Notes to Pharmacist: PRNMultivitamin , Notes to Pharmacist: IRONPantoprazole Sodium 40 MG Tablet Delayed Release TAKE 1 TABLET BY MOUTH EVERY DAY Triamcinolone Acetonide 0.1 % Cream 1 application Externally bid Vitamin B + C Complex - Tablet as directed Orally Vitamin D (Cholecalciferol) 50 MCG (1999 UT) Capsule 2 capsule Orally Once a day Medication List reviewed and reconciled with the patientTaking Aspirin Adult Low Dose(Aspirin) 81 MG Tablet Delayed Release 1 tablet Orally Once a day Taking Atorvastatin Calcium 80 MG Tablet TAKE 1 TABLET BY MOUTH ONCE DAILY Taking Carvedilol 25 MG Tablet 1 tablet with food Orally Twice a day Taking Colesevelam HCl 625 MG Tablet TAKE 4 TABLETS BY MOUTH ONCE DAILY Taking Entresto(Sacubitril-Valsartan) 24-26 MG Tablet 1 tablet Orally Twice a day Taking Ezetimibe 10 MG Tablet TAKE 1 TABLET BY MOUTH ONCE DAILY Taking Ipratropium [place] 0.06 % Solution USE 2 SPRAYS IN BOTH NOSTRILS TWICE DAILY Taking Jardiance(Empagliflozin) 10 MG Tablet TAKE 1 TABLET BY MOUTH ONCE DAILY Taking Meloxicam 15 MG Tablet 1 tablet Orally Once a day , Notes to Pharmacist: PRNTaking Multivitamin , Notes to Pharmacist: IRONTaking Pantoprazole Sodium 40 MG Tablet Delayed Release TAKE 1 TABLET BY MOUTH EVERY DAY Taking Triamcinolone Acetonide 0.1 % Cream 1 application Externally bid Taking Vitamin B + C Complex - Tablet as directed Orally Taking Vitamin D (Cholecalciferol) 50 MCG (1999 UT) Capsule 2 capsule Orally Once a day Medication List reviewed and reconciled with the patient * Allergies: N .K.D.A.no[Allergies Verified] Objective: * Vitals: W t:163.8lbs, Ht: 65 in, BP:110/72mm Hg, BMI:27.25Index, Ht-cm: 165.1 cm, Wt-k.3 kg. * Examination: ???Physical Exam: ?GENERAL:?well developed, well nourished, in no acute distress.?HEAD:?normocephalic/atraumatic.?EYES:?pupils equal, round and reactive to light, conjunctivae and sclerae normal.?EARS:?no deformity or lesion of external ear, canals and TM appear normal bilaterally, TM's intact, not inflamed with normal light reflex, hearing grossly normal to conversational speech.?NOSE:?no deformity, discharge, inflammation, or lesions. ?MOUTH:?mucous membranes moist, normal oropharynx and posterior pharynx without lesions or exudates, tongue normal, dentition normal.?NECK:?neck supple, no masses or palpable cervical nodes, trachea midline, thyroid without nodules, masses, tenderness, or enlargement.?CHEST:?no chest wall deformity, no chest wall tenderness. ?LUNGS:?normal respiratory effort and clear to auscultation, no wheezes, rales, or rhonchi, good air exchange.?CARDIO:?regular rate and rhythm, normal S1 and S2, nor murmur, rub, or gallop.?PULSES:?normal capillary refill.?ABDOMEN:?soft, non-distended, non-tender, no masses.?MUSCULOSKELETAL:?no deformity or scoliosis noted, normal range of motion, joints normal, no erythema, edema, effusion, or ecchymosis.?EXTREMITY:?no clubbing, cyanosis, edema, or deformity withnormal ROM in both upper and lower bilateral extremities.?NEUROLOGIC:?grossly normal.?SKIN:?no rashes, ulcerations, or suspicious lesions.?LYMPH NODES:?no cervical adenopathy, nodes normal.?MENTAL STATUS:?alert and oriented x3, normal mood and affect.? Assessment: * Assessment: 1.?Hypertension - I10 (Primary)???2.?Coronary artery disease - I25.10? ??3.?Hypertriglyceridemia - E78.1???4.?Diabetes mellitus - E11.9 ??5.?GERD (gastroesophageal reflux disease) - K21.9???6.?Cervical radiculopathy - M54.12???7.?Vision loss - H54.7???8.?Encounter for immunization - Z23??? Plan: * Treatment: Notes: cuttoing back on coreg??2.?Diabetes mellitus? Refill Carvedilol Tablet, 12.5 MG, 1 tablet with food, Orally, Twice a day, 90 days, 180 Tablet, Refills 2.?? Notes: well contrled??3.?GERD (gastroesophageal reflux disease)? Notes: refill meds??4.?Cervical radiculopathy?Imaging: MRI CSPINE WO CON Notes: follow up on cervical canal stenosis??5.?Vision loss?Imaging: MRI BRAIN WO CON ?Imaging: CT angio neck * Immunizations: Flu, Flucelvax (09186) 6 mos and older, single-dose syringe (0906-9458) : 0.5 mL (Route: Intramuscular) given by Sita Rodriguez on Left Deltoid (Encounter for immunization) * Procedure Codes: 9 0661 FLU VACCINE-INTRMUSC [id number] IMMUNIZATION ADMIN. 1 VAC * Preventive Medicine: ??Screenings/Counseling:?BMI ACTION PLAN?Above Normal BMI Follow-up?Dietary management education, guidance, and counseling See treatment section of progress note for complete details of management plan. * * Sign off status: CompletedVisit Status:?CHK (Check Out) true * Provider: Bandar Valdez ([facility])MD Date: 1 07/01/2024 Generated for Printing/Faxing/eTransmitting on:?05/12/2025 06:47 AM EST History and Physical Notes * HPI (History of Present Illness) CategorySub-CategoryDetailNotesCategory NotesGeneral Seing eye Dr - R eye is worse - seen retinal specialist - DM - sugars - 110's HTN - bp well cntroled Examination CategorySub-CategoryDetailNotesCategory NotesPhysical ExamGENERAL:well developed, well nourished, in no acute distressHEAD:normocephalic/atraumatic EYES:pupils equal, round and reactive to light, conjunctivae and sclerae normal EARS:no deformity or lesion of external ear, canals and TM appear normal bilaterally, TM's intact, not inflamed with normal light reflex, hearing grossly normal to conversational speechNOSE:no deformity, discharge, inflammation, or lesionsMOUTH:mucous membranes moist, normal oropharynx and posterior pharynx without lesions or exudates, tonguenormal, dentition normalNECK:neck supple, no masses or palpable cervical nodes, trachea midline, thyroid without nodules, masses, tenderness, or enlargementCHEST:no chest wall deformity, no chest wall tendernessLUNGS:normal respiratory effort and clear to auscultation, no wheezes, rales, or rhonchi, good air exchangeCARDIO:regular rate and rhythm, normal S1 and S2, nor murmur, rub, or gallopPULSES:normal capillary refillABDOMEN:soft, non-distended, non-tender, no massesRECTAL:MUSCULOSKELETAL:no deformity or scoliosis noted, normal range of motion, joints normal, no erythema, edema, effusion, or ecchymosisEXTREMITY:no clubbing, cyanosis, edema, or deformity with normal ROM in both upper and lower bilateral extremitiesNEUROLOGIC:grossly normalSKIN:no rashes, ulcerations, or suspicious lesionsLYMPH NODES:no cervical adenopathy, nodes normalMENTAL STATUS:alert and oriented x3, normal mood and affect
--- NOTE | 2025-05-12 06:48 | MR_ITS ---
The [address] [address] Patient Name: MUNIRA CALHOUN MRN: [id number] date: 1965 Sex: F Assigned Patient Location: MRI Current Patient Location: MRI Accession/Order Number: [id number] Exam Date: 05/12/2025 06:55 Report Date: 05/12/2025 11:18 At the request of: PATTI VALDEZ MD Procedure: MR head/brain wo con EXAMINATION: MRI OF THE BRAIN WITHOUT CONTRAST CLINICAL HISTORY: vision loss H547 COMPARISON: None TECHNIQUE: Multiecho, multiplanar imaging of the brain was performed without contrast FINDINGS: No restricted diffusion. Ventricles and sulci unremarkable in size and configuration for the patient's age. No shift midline structure basal cisterns are patent. Mild periventricular is subcortical T2 prolongation identified suggest of chronic small vessel ischemic disease. Mild flattening of the pituitary gland within the sella. Intracranial arterial vascular flow voids are preserved. MR/MR head/brain wo con IMPRESSION: Mild chronic small vessel ischemic disease. Negative for acute intracranial process by MRI. Impression dictated by: Quintin Chew M.D. 05/12/2025 11:18 AM Dictation Location: [place] [address] Electronically authenticated by: [id number] Y Date: 05/12/2025 11:18
--- NOTE | 2025-05-12 06:48 | MR_ITS ---
[address] [address] Patient Name: MUNIRA CALHOUN MRN: [id number] date: 1965 Sex: F Assigned Patient Location: MRI Current Patient Location: LAB Accession/Order Number: [id number] Exam Date: 05/12/2025 06:55 Report Date: 05/12/2025 16:45 At the request of: PATTI VALDEZ MD Procedure: MR cervical spine wo con MRI Cervical Spine without contrast TECHNIQUE: Multiplanar T1 and T2-weighted imaging of the cervical spine obtained. HISTORY: Blurred vision. Neck pain. 3 months duration COMPARISON: None BONY ALIGNMENT: Adequate BONY LESION: None CERVICAL CORD: No significant demyelination. SKULL BASE: unremarkable. PREVERTEBRAL SOFT TISSUES: Unremarkable NASOPHARYNGEAL REGION: unremarkable. VERTEBRAL ARTERIES: unremarkable. POSTSURGICAL CHANGES: None CERVICAL SOFT TISSUES: Unremarkable C1-2 LEVEL: Unremarkable C2-3: Mild spondylosis. Patent central canal and neural foramen C3-4: Mild spondylosis. Mild diffuse disc bulge. Mild cardiac cord. No cord edema or hemorrhage. Patent neural foramen C4-5: Mild spondylosis. Diffuse disc bulge. Mild crowding of the cord. No cord edema or hemorrhage. Mild bilateral neural foraminal narrowing C5-6: Moderate spondylosis. Large central diffuse disc bulge. Mild crowding the cord. No cord edema or hemorrhage. Mild to moderate bilateral neural foraminal narrowing C6-7: Mild spondylosis. Diffuse disc bulge. Mild to moderate crowding of the cord. No cord edema or hemorrhage. Mild bilateral neural foraminal narrowing C7-T1: Mild spondylosis. Patent central canal and neural foramen Partial emptying of sella turcica. MR/MR cervical spine wo con IMPRESSION: Extensive crowding of the cord at the C5-6 level. Mild/moderate crowding the cord at the C6-7 level. No cord edema or hemorrhage. Neural foraminal narrowing as above. Impression dictated by: Stanley Rothman M.D. 05/12/2025 4:45 PM Dictation Location: [facility] Electronically authenticated by: [id number] Y Date: 05/12/2025 16:45
--- OUTSIDE RECORDS SUMMARY | 2025-05-12 06:48 | XMS_ITS | Clinical Summary ---
Author Organization [facility] Address [address] [place] [address] Care Team Providers Care Melt House Drag Operator Name Role Phone Unavailable Primary Care Provider Unavailabl e Social History Tobacco UseTypesPacks/DayYears UsedDateSmoking Tobacco: Never AssessedUT Safety & EnvironmentAnswerDate RecordedFear of Current or Ex-PartnerNot on file 07/11/2023Emotionally AbusedNot on file07/11/2023hysically AbusedNot on file 07/11/2023Sexually AbusedNot on file07/11/2023hysically or Sexually AbusedNot on file07/11/2023CommentsUnknownSex and Gender InformationValueDate RecordedSex Assigned at BirthNot on fileLegal KboXsipvj74/30/2022 12:44 AM EDT Gender IdentityNot on fileSexual OrientationNot on file Plan of Treatment Not on file
--- OUTSIDE RECORDS SUMMARY | 2025-05-12 06:48 | XMS_ITS | Clinical Summary ---
Author Organization [facility] Address [id number] [place] [address] Care Team Providers Care Stone Setter Apprentice Name Role Phone Unavailable Primary Care Provider Unavailabl e Social History Tobacco UseTypesPacks/DayYears UsedDateSmoking Tobacco: Never AssessedChildcare AnswerDate ZwpzwmphFkfrcskbdZpvjcwg19/12/2019EmploymentAnswerDate Recorded PozpbtztlzDnajxzi46/12/2019CommentsUnknownSex and Gender Information ValueDate RecordedSex Assigned at BirthNot on fileLegal GqoUecujw01/06/2015 11:32 AM EDTGender IdentityNot on fileSexual OrientationNot on file Plan of Treatment Not on file Medical Devices Not on file
--- OUTSIDE RECORDS SUMMARY | 2025-05-12 06:48 | XMS_ITS | Patient Health Record ---
Author Organization [facility] [place] Address [address] [place] [address] Care Team Providers Care Diploma Pharmacy Technician Name Role Phone Abad Valdez Primary Care Provider Allergies No Known Allergies Results Component Value Reference Range Notes CT angio neck Reviewed date:05/11/2025 01:16:38 PM Interpretation: Performing Lab: Notes/Report: Source Facility: [place] [address] CT Scan Report Signed Patient: MUNIRA SERRA MR#: [id number] : 1965 Acct:[id number] Age/Sex: 59 / F ADM Date: 05/11/25 Loc: LAB Attending Dr: Patti Valdez M.D. Ordering Physician: Patti Valdez M.D. Date of Service: 05/11/25 Procedure(s): CT angio neck Accession Number(s): [id number] cc: Patti Valdez M.D. [place] [address] Patient Name: MUNIRA SERRA MRN: [id number] date: 1965 Sex: F Assigned Patient Location: LAB Current Patient Location: LAB Accession/Order Number: [id number] Exam Date: 05/11/2025 09:52 Report Date: 05/11/2025 [...] is no vascular occlusive disease in the kpmim-ez-dyjq. There is degenerative change at the cervical spine, greatest at C5-6 and C6-7. The imaged paranasal sinuses and mastoid air cells are clear. The upper imaged lungs show no contributory findings. CT/CT angio neck IMPRESSION: CAROTID ARTERY PLAQUE, WITHOUT HEMODYNAMICALLY SIGNIFICANT STENOSIS OR VASCULAR OCCLUSIVE DISEASE. NO SIGNIFICANT VERTEBRAL ABNORMALITIES. Impression dictated by: Radha Garcia M.D. 05/11/2025 11:29 AM Dictation Location: [place] [address] Electronically authenticated by: [id number] Y Date: 05/11/2025 11:29 Dictated By: Radha Garcia M.D. Signed By: 05/11/25 1132 DD/ 1129 TD/TT: [employer]: CBC AUTO DIFF Reviewed date:10/19/2024 09:22:17 PM Interpretation: Performing Lab: Notes/Report: [facility] , White Blood Count 8.5 4.0-11.0 10 3/uL Red Blood Count4.274.20-5.40 10 6/pUYdznmkqzjy08.012.0-16.0 g/hQBgxgqddnne51.1 36.0-48.0 %Mean Corpuscular Boamjo95.981.0-99.0 fLMean Corpuscular Hemoglobin 30.426.7-34.0 pgMean Corpuscular HGB Conc32.429.9-35.2 g/dLRed Cell Distribution Width13.111.0-15.0 %Platelet Vfeva475727-305 10 3/uLMean Platelet Volume8.99.5- 13.5 fLNeutrophils Percent Auto65.243.0-75.0 %Lymphocytes Percent Auto21.320.5- 60.0 %Monocytes Percent Auto9.31.7-12.0 %Eosinophils Percent Auto3.40.9-7.0 % Basophils Percent Auto0.60.2-2.0 %Immature Granulocytes Pct Auto0.20.0-0.5 % Neutrophils Absolute Auto5.51.4-6.5 10 3/uLLymphocytes Absolute Auto1.81.2-3.8 10 3/uLMonocytes Absolute Auto0.80.3-0.8 10 3/uLEosinophils Absolute Auto0.30.0- 0.7 10 3/uLBasophils Absolute Auto0.10.0-0.1 10 3/uLImmature Granulocytes Abs Auto0.020.00-0.03 10 3/uLPerforming Lab:see noteML - [facility] LBECG 12 lead Reviewed date:10/19/2024 09:22:17 PM Interpretation: Performing Lab: Notes/Report: Source Facility: [place] [address] Electrocardiograph Report Signed Patient: MUNIRA SERRA MR#: [id number] : 1965 Acct:[id number] Age/Sex: 59 / F ADM Date: 10/19/24 Loc: ER Attending Dr: Ordering Physician: Berkley Danielle Date of Service: 10/19/24 Procedure(s): ECG 12 lead Accession Number(s): [id number] cc: [facility] Test Date: 2024-10-19 Pat Name: MUNIRA SERRA Department: Room: - Gender: Female Manager Transmission: : 1965 Requested By: [id number] Order Number: [id number] Reading MD: MARIO CONTRERAS M.D. Measurements Intervals [place] Rate: 79 P: 5 HI: 150 QRS: -4 QRSD: 78 T: 32 [...] Signed By: 10/19/24 1759 DD/ 0948 TD/TT: [employer]:CREATININE Reviewed date:05/11/2025 01:16:38 PM Interpretation: Performing Lab: Notes/Report: [facility] ,Creatinine0.780.55-1.02 mg/dLEstimated GFR ( Zarina>60>=60 mL/min/1.73m 2Estimated GFR (Non- Sarah>60>=60 mL/min/1.73m 2Performing Lab:see noteML - [facility] LBTroponin I High Sensitivity Reviewed date:10/19/2024 09:22:17 PM Interpretation: Performing Lab: Notes/Report: [facility] ,Troponin I High Sensitivity8.14.0-51.3 pg/mL CUT-OFF POINTS HAVE BEEN ESTABLISHED BASED ON THE FOURTH UNIVERSAL DEFINITION OF MYOCARDIAL INFARCTION. THE UPPER REFERENCE LIMIT (URL) OF TROPONIN, DEFINED THE 99TH PERCENTILE OF cTnI DISTRIBUTION IN A REFERENCE POPULATION, HAS BEEN CONFIRMED THE DECISION THRESHOLD FOR MA DIAGNOSIS. 99TH PERCENTILE = 51.4 PG/ML NOTE: HIGH-SENSITIVITY TROPONIN ASSAY IS NOT INTENDED TO BE USED IN ISOLATION BUT SHOULD BE INTERPRETED IN CONJUNCTION WITH OTHER DIAGNOSTIC AND CLINICAL INFORMATION. Performing Lab:see noteML - [facility] LBProthrombin Time INR Reviewed date:10/19/2024 09:22:17 PM Interpretation: Performing Lab: Notes/Report: [facility] ,Prothrombin Time11.39.0-11.6 secINR1.07 DESIRED INR: 2.0-3.0 CONDITIONS NOT LISTED BELOW 2.5-3.5 FOR PROSTHETIC HEART VALVE REPLACEMENT 2.5-3.5 RECURRENT THROMBOSIS Performing Lab:see noteML - [facility] LBPROF 14(COMP METB) Reviewed date:10/19/2024 09:22:17 PM Interpretation: Performing Lab: Notes/Report: [facility] ,Rralee987994-304 mmol/LPotassium4.63.5-5.1 mmol/NRzagzoyi71974-053 mmol/LCarbon Uctsccx91.721.0-32.0 mmol/LAnion Gap10.5Fygeuwt81161-459 mg/dLBlood Urea Xxtrryaa77.07.0-18.0 mg/dLCreatinine0.800.55-1.02 mg/dLEstimated GFR ( Zarina>60>=60 mL/min/1.73m 2Estimated GFR (Non- Sarah>60>=60 mL/min/1.73m 2BUN Creatinine Ratio32.6Wxloqxe0.28.5-10.1 mg/dLBilirubin Total1.00.2-1.0 mg/dL Aspartate Amino Pjhndxpkvah0650-83 U/LAlanine Bsoxnofzgbkyprli5243-52 U/L Alkaline Wieyyepfcju7826-495 U/LTotal Protein6.56.4-8.2 g/dLAlbumin Level3.53.4- 5.0 g/dLGlobulin3.0Albumin Globulin Ratio1.2Performing Lab:see noteML - [facility] LBMAGNESIUM Reviewed date:10/19/2024 09:22:17 PM Interpretation: Performing Lab: Notes/Report: [facility] ,Magnesium2.11.8-2.4 mg/dLPerforming Lab:see noteML - [facility] LB Troponin I High Sensitivity Reviewed date:10/19/2024 09:22:17 PM Interpretation: Performing Lab: Notes/Report: [facility] ,Troponin I High Sensitivity6.04.0-51.3 pg/mL CUT-OFF POINTS HAVE BEEN ESTABLISHED BASED ON THE FOURTH UNIVERSAL DEFINITION OF MYOCARDIAL INFARCTION. THE UPPER REFERENCE LIMIT (URL) OF TROPONIN, DEFINED THE 99TH PERCENTILE OF cTnI DISTRIBUTION IN A REFERENCE POPULATION, HAS BEEN CONFIRMED THE DECISION THRESHOLD FOR MA DIAGNOSIS. 99TH PERCENTILE = 51.4 PG/ML NOTE: HIGH-SENSITIVITY TROPONIN ASSAY IS NOT INTENDED TO BE USED IN ISOLATION BUT SHOULD BE INTERPRETED IN CONJUNCTION WITH OTHER DIAGNOSTIC AND CLINICAL INFORMATION. Performing Lab:see noteML - [facility] LBMM tomosynthesis screening BI Reviewed date:02/25/2025 06:09:30 PM Interpretation: Performing Lab: Notes/Report: Source Facility: [facility]-[address] [place] [address] [place] [address] Mammography Report Signed Patient: MUNIRA SERRA MR#: [id number] : 1965 Acct:[id number] Age/Sex: 59 / F ADM Date: 02/25/25 Loc: MAMMO Attending Dr: Patti Valdez M.D. Ordering Physician: Patti Valdez M.D. Results: Date of Service: 02/25/25 Follow Up: Procedure(s): MM tomosynthesis screening BI Accession Number(s): [id number] cc: Patti Valdez M.D. Patient Name: MUNIRA SERRA MR#: [id number] : 1965 Exam Date: 02/25/2025 Ordering Doctor: [...] breast cancer at age 85. LOCATION: [facility] BREAST COMPOSITION: The breasts are heterogeneously [...] Signed By: 02/25/25 1440 DD/ 1439 TD/TT: [employer]: Reason For Referral No Information Medications Medication [...] TABLET BY MOUTH ONCE DAILY; Duration: 90ActiveIpratropium [place] 0.06 %USE 2 SPRAYS IN BOTH NOSTRILS [...] Vaccine Route Administration Date Status Comme nts Grupanya Syringe Pre -Filled 30 mcg/0.3 mL Unknown 03/05/2023 Administered Grupanya Syringe Pre-Filled 30 mcg/0.3 cYHyfjxim52/10/2024Administered Flu, Flucelvax (45562) 6 mos and older, single-dose syringe (7233-1477)IM Omplsmfcgubww20/12/2025AdministeredFlu, FluLaval (00279) 6 mos and older, single-dose syringe(3280-3459)Forazml4402/27/2024dministeredFlu, Fluzone (20827) 6 mos+, single-dose syringe/vial (5554-5316)Hghqevq5103/05/2023dministered Social History Tobacco Use: Social History Observation Description Date Details (start date - stop date) Former Smoker 05/20/1980 - 05/20/1982 Tobacco Use/Smoking Question Answer Notes Patient is a former smoker When did you start smoking?05/20/1980When did you stop smoking?05/20/1982Alcohol Screen (Audit-C) Question Answer Notes Did you have a drink containing alcohol in the p ast year? No Pfsqba6EsgerrazexgnkyDelzlbykNSQVZ-W (Standard) Question Answer Notes Did you have a drink containing alcohol in the p ast year? No Kunoev1SvgwcljdfqgejqPssfhkmw Problems Problem Type SNOMED Code ICD Code Onset Dates Problem Status W/U Status Risk Notes Problem Migraine variant wit h headache (disorder) (416572264) Migraine headache (G43.909) ActiveconfirmedProblemHypertension (51521867)Hypertension (I10)Activeconfirmed ProblemGastroesophageal reflux disease (240798240)GERD (gastroesophageal reflux disease) (K21.9)ActiveconfirmedProblemCervical radiculopathy (99302153)Cervical radiculopathy (M54.12)ActiveconfirmedProblemCoronary artery disease (62500348) Coronary artery disease (I25.10)ActiveconfirmedProblemOsteoarthritis of knee (610535596)Osteoarthritis of knee (M17.9)ActiveconfirmedProblemAcute combined systolic and diastolic heart failure (417427916714257)Acute combined systolic (congestive) and diastolic (congestive) heart failure (I50.41)Activeconfirmed ProblemHypertriglyceridemia (731129423)Hypertriglyceridemia (E78.1)Active confirmedProblemWell adult (397879536)Well adult (Z00.00)ActiveconfirmedProblem Shoulder joint pain (697278853)Shoulder pain, left (M25.512)Activeconfirmed ProblemFunctional visual loss (993412544)Vision loss (H54.7)Activeconfirmed ProblemHearing loss (18603569)Hearing deficit (H91.90)ActiveconfirmedProblem Ventricular premature depolarization (907879164)Unifocal PVCs (I49.3)Active confirmedProblemRaynaud's disease (381031780)Raynaud's disease (I73.00)Active confirmedProblemCervical arthritis (612305884)Cervical arthritis (M47.812)Active confirmedProblemDiabetes mellitus (12985706)Diabetes mellitus (E11.9)Active confirmed Vital Signs Blood pressure diastolic 72 mm Hg 04/30/2025 Uvxgyj32 in04/30/2025lood pressure mm Hg04/30/20254411Mnmvgi969.8 lbs 04/30/2025BMI27.25 kg/m204/30/2025 Encounters Encounter Location Date Provider Diagnosis [facility] [address] [place] [address] 12/01/2024 [facility] [place] [address] 02/25/2025Doug [facility] [place] [address]/Doug [facility] [place] [address]/Doug [facility] [facility] [place] [address]/01/2025Doug [facility] [place] [address]/Doug [facility] [facility] [place] [address]/06/2024 Abad [facility] [place] [address]/04/2025Doug HoyAcute combined systolic (congestive) and diastolic (congestive) heart failure I50.41 ; ZzghcgliwglkX54 ; Diabetes mellitus E11.9 ; Shoulder pain, left M25.512 and Well adult Z00.00[facility] [address] [place] [address]/04/2025Doug HoyHypertension I10 ; Coronary artery disease I25.10 ; Acute combined systolic (congestive) and diastolic (congestive) heart failure I50.41 and Diabetes mellitus [facility]11.[facility] [place] [address]/04/2025 Abad [place] adult Z00.00[facility] [place] [address]/12/2025Doug HoyHypertension I10 ; Coronary artery disease I25.10 ; Hypertriglyceridemia E78.1 ; Diabetes mellitus E11.9 ; GERD (gastroesophageal reflux disease) K21.9 ; Cervical radiculopathy M54.12 ; Vision loss H54.7 and Encounter for immunization Z23 Assessments Encounter Date Diagnosis (ICD Code) Assessment Notes Treatment Notes Treatment Clinical Notes Section Notes 07/29/2024 Acute combined systo lic (congestive) and diastolic (congestive) heart failure (ICD-10 - I50.41) 07/29/2024Hypertension (ICD-10 - I10)01/29/2025Well adult (ICD-10 - Z00.00) 04/30/2025Hypertension (ICD-10 - I10)cuttoing back on coreg5Coronary artery disease (ICD-10 - I25.10)10/29/2024Hypertension (ICD-10 - I10)10/29/2024 Coronary artery disease (ICD-10 - I25.10)10/29/2024ute combined systolic (congestive) and diastolic (congestive) heart failure (ICD-10 - I50.41) 04/30/2025Hypertriglyceridemia (ICD-10 - E78.1)07/29/2024Diabetes mellitus (ICD- 10 - E11.9)07/29/2024Shoulder pain, left (ICD-10 - M25.512)04/30/2025Diabetes mellitus (ICD-10 - E11.9)well uisujmmt18/12/2025Diabetes mellitus (ICD-10 - E11.9)04/30/2025GERD (gastroesophageal reflux disease) (ICD-10 - K21.9)refill meds07/29/2024Well adult (ICD-10 - Z00.00)04/30/2025ervical radiculopathy (ICD- 10 - M54.12)follow up on cervical canal kbdxubek44/12/2025Vision loss (ICD-10 - H54.7)04/30/2025Encounter for immunization (ICD-10 [...] WO CON 04/30/2025 THYROID PANEL (T4/TSH/FREE T3) THYROID PANEL (T4/TSH/FREE T3) 3 MM screening mammo BI 01/30/2024 MM screening mammo BI 01/29/2025 CMP (COMP MET MILLER) w/eGFR CKD-EPI 2024 CBC WITH DIFF 07/29/2024 Next Appt Details Provider Name:Abad Valdez, 09:45:00 AM, [address] [place], [address], Insurance Providers Payer Name Payer Address Payer Phone Subscriber Number Group Number Insured Name Patient Relationship to Insured Coverage Start Date Coverage End Date [facility] [address] [place] [address] [id number] Lesley Serra - patient is the insured Medical (General) History Medical History History ICD Code Unifocal PVCs I49.3 Acute combined systolic (con gestive) and diastolic (congestive) heart failure I50.41 Coronary artery disease I25.10 Benign neoplasm of right lung Migraine aulnaxlgI62.684UzmebzaoalauypfwviapD81.1Osteoarthritis of kneeM17.9 KanvfvokzddaS33Geavsjb's ungljmyV93.00Hearing wkrmbbpU14.90Surgical History Surgery Date(Month/Year) Hysterectomy, total CholecystectomyHeart Cath, Dr. Cohn09/2010Left Total hipT&ACardiac Stent
--- OUTSIDE RECORDS SUMMARY | 2025-05-12 06:48 | XMS_ITS | Clinical Summary ---
Author Organization [facility] Address [address] [place] [address] Care Team Providers Care Risk Management Consultant Name Role Phone Unavailable Primary Care Provider Unavailabl e Social History Tobacco UseTypesPacks/DayYears UsedDateSmoking Tobacco: Never Assessed CommentsUnknownSex and Gender InformationValueDate RecordedSex Assigned at Not on fileLegal AsuSjytkk83/15/2023 7:25 PM EDTGender IdentityNot on fileSexual OrientationNot on file Last Filed Vital Signs Vital SignReadingTime TakenCommentsBlood Pressure--Pulse--Temperature-- Respiratory Rate--Oxygen Saturation--Inhaled Oxygen Concentration--Gwxcqu039 kg (230 lb)04/05/2021 12:00 PM WTPGpbekl977.1 cm (5' 5 )04/05/2021 12:00 PM ESTBody Mass Index38.27106/05/2020 12:00 PM EST Plan of Treatment DateTypeDepartmentCare Team (Latest Contact Info)Zmdxtmqtxrj57/18/2026 8:00 AM ESTTelemedicine [facility] [address] [place] [address] Jr. Vidal Maciel, DO [address] [place] [address] Insurance
--- OUTSIDE RECORDS SUMMARY | 2025-05-12 06:48 | XMS_ITS | Clinical Summary ---
Author Organization [facility] Address [facility] [place] [address] Care Team Providers Care Oven Roaster Name Role Phone Noah Swann MD Primary Care Provider [phone] Reed Leon MD Unavailable [phone] Allergies No known active allergies Medications * [...] 80 mg tablet Indications:Coronary artery disease involving redding coronary artery of redding heart, unspecified whether angina presenttake 1 tablet [...] Units once daily.04/19/2022ctive Active Problems ProblemNoted DateDiagnosed HuxfVxjbhhe35/28/2022Type 2 diabetes mellitus with morbid tqybykb4811/13/2021Heart failure with preserved ejection hajnuwcr22/09/2022 Assessment & Plan (11/13/2021 1:58 PM EDT): Assessment: Torsemide, Entresto and Coreg. Monitored by Cardiology: Dr Gee, last OPV Most recent ECHO: 08/08/2021 - The left ventricle is normal in size. Left ventricular systolic function is normal. EF = 55 ?? 5% (2D biplane Acute on chronic heart failure with preserved ejection qfaqslcv19/28/2022OSA (obstructive sleep apnea)04/10/2021 Overview (04/10/2021): BRIAN; Lupe # [phone]; FAX# [phone]; [phone]. Assessment & Plan (11/13/2021 8:15 AM EDT): Assessment: compliant with cpap. Coronary artery disease involving redding coronary artery of redding heart 10/06/2020 Assessment & Plan (11/13/2021 1:51 PM EDT): Assessment: monitored by Dr Gee, 10/26/2021 S/p stent: (10/06/2020) proximal LAD and proximal ??into mid LAD S/P drug eluting coronary stent fbiwjztml55/20/2021Morbid awzzhyl8008/25/2020Mixed szygqoyhhyhglw41/08/2021 Assessment & Plan (11/13/2021 1:58 PM EDT): Assessment: on daily medications. Gastroesophageal reflux disease without poflcafugqi44/08/2021 Assessment & Plan (11/13/2021 8:08 AM EDT): Assessment: daily protonix, stable. Diabetes mellitus type 2 in obese08/25/2020Obesity, Class III, BMI >= 40 08/12/2020 Assessment & Plan (11/13/2021 2:00 PM EDT): Assessment: Body mass index is 42.6 kg/m??. Veiyymcu02/05/2010 Assessment & Plan (11/13/2021 8:04 AM EDT): Assessment: monthly injection Gabriella Has PRN Imitrex, last needed 2 weeks ago. Primary ziiyunjfhcui61/14/2005 Assessment & Plan (11/13/2021 7:54 AM EDT): Assessment: stable on PO coreg, entresto BP today: 113/57 Type 2 diabetes mellitus with hyperglycemia, with long-term current use of vqwasfb0306/02/2001 Assessment & Plan (11/13/2021 8:09 AM EDT): Assessment: Rx lantus, but diet pre op bariatric surgery is just taking SS + Jardiance. Most recent hgbA1c: 8.6 (08/08/2021). Resolved Problems ProblemNoted DateDiagnosed DateResolved DateNSTEMI (non-ST elevated myocardial infarction) Immunizations ImmunizationAdministration DatesNext DueCOVID-19 original vaccine, age 12+ yr, monovalent (PFIZER-App.netNTComecer - [place] [employer])08/08/2021neumococcal polysaccharide (PPV23) vaccine, 23 [...] drink = 0.6 oz pure alcohol)occasionallyPHQ-2AnswerDate RecordedPHQ-2 ibroa3505Area Deprivation IndexAnswerDate RecordedNational Score (1-100), lower number is lower riskNot on file06/08/2020tate Score (1-10), lower number is lower riskNot on file06/08/2020ata from: https://www.neighborhoodatlas.medicine.[facility].edu/. Last address used for calculationNot on file06/08/2020CommentsNoSex and Gender InformationValueDate RecordedSex Assigned at VpslvAxtdhw23/14/2021 12:02 PM ESTLegal ZqnZjomcu53/06/2021 2:39 PM ESTGender JqsipvxwPtkoqu93/14/2021 12:02 PM ESTSexual WihdkzngjgjJsppczab99/14/2021 12:02 PM EST Last Filed Vital Signs Vital SignReadingTime TakenCommentsBlood Jnfevhjq166/6909/12/2024 3:57 PM EDT Koqcy294001/25/2025 3:57 PM FNBDbwdhxnqhvr84.2 ??C (99 ??F)11/16/2021 1:38 PM EDT Respiratory Gsgm1793 8:22 AM EDTOxygen Sydrhyneck11%01/25/2025 3:57 PM EDTInhaled Oxygen Concentration--Qtmngv07.8 kg (165 lb)01/25/2025 3:57 PM EDT Snzeez874.1 cm (5' 5 )01/25/2025 3:57 PM EDTBody Mass Index27.46001/25/2025 3:57 PM EDT Plan of Treatment Health MaintenanceDue DateLast DoneCommentsDiabetic Foot Exam1973Dilated Retinal Exam1973Urine Albumin:Creatinine Ratio1973Annual PCP Team Chronic Disease Visit1981Anxiety Awvbmwghh33/24/1982Depression Screening 1981HIV Egzxjxofr09/24/1982Hepatitis C Xbjgyhenr80/24/1982DTaP,Tdap,Td Vaccine (1 - Tdap)1982Cervical Cancer Vvkrjuxaa04/24/1985Mammogram Iaeibxbao47/24/2004CT Pwmpbacvntpl14/24/2009Cologuard (FIT-DNA)2008Fecal Occult Blood07/13/20083437Eieyvfvhzgjyx81/24/2009RSV Vaccine (1 - Risk 50-74 years 1-dose series)07/13/20139049Ebcveaqphkk33/12/202202/04/2021, 1Colorectal Cancer Jrazbxkil28/12/2851DtB8E33, 08/08/2021, 02/15/2021, Additional history existsPneumococcal Vaccine: 50+ (2 of 2 - PCV)08/10/2022 2Covid-19 Vaccine (6 - 2024- season), 03/05/2023, 08/08/2021, Additional history existsInfluenza Vaccine (#1), 03/05/2023, 02/19/2022, Additional history existsLDL Movtjtledkr09/08/2026 01/25/2025, 10/26/2021, 02/15/2021, Additional history existsShingrix Vaccine Idsqwyzii90/16/2022, 10/19/2021 Goals GoalPatient Goal TypeAssociated ProblemsRecent ProgressPatient-Stated?Author Blood Pressure < 130/80 Blood Nguzckds675/69(01/25/2025 3:57 PM EDT)Johanne Woodard MD Procedures Procedure NamePriorityDate/TimeAssociated DiagnosisCommentsLIPID PANEL, FASTING Jhhzysv3701/25/2025 11:02 AM EDT Heart failure with preserved ejection fraction, unspecified HF chronicity (HCC) Coronary artery disease involving redding coronary artery of redding heart, unspecified whether angina present Primary hypertension Mixed hyperlipidemia Obesity, Class III, BMI 40-49.9 (morbid obesity) (HCC) Type 2 diabetes mellitus with hyperglycemia, with long-term current use of insulin ([facility]) S/P drug eluting coronary stent placement Gastroesophageal reflux disease without esophagitis HEMOGLOBIN P8WCsluloe77/27/2022 8:45 AM EDT Pre-op evaluation Morbid obesity (HCC) Primary hypertension Heart failure with preserved ejection fraction, unspecified HF chronicity (HCC) Migraine without status migrainosus, not intractable, unspecified migraine type Gastroesophageal reflux disease without esophagitis Type 2 diabetes mellitus with hyperglycemia, with long-term current use of insulin ([facility]) RAYMUNDO (obstructive sleep apnea) FZCQZEWYTQMZslsqfs05/12/2021 9:43 AM EST from Last 3 Months or Most Recently Relevant to Health Maintenance Results * LIPID PANEL BASIC (01/25/2025 11:02 AM EDT)ComponentValueRef RangeTest Method Analysis TimePerformed AtPathologist SignatureCholesterol, Total90<200 mg/dL 01/25/2025 2:02 PM [facility]: <200 mg/dL, Desirable 200-239 mg/dL, Borderline high >239 mg/dL, High Rxqektnpcgfp932<150 mg/dL01/25/2025 2:02 PM [facility] Comment: <150 mg/dL, Normal 150-199 mg/dL, Borderline high 200-499 mg/dL, High >499 mg/dL, Very high HDL Zccbdagezpu52>39 mg/dL01/25/2025 2:02 PM [facility] Comment: 40-59 mg/dL, Acceptable >59 mg/dL, High: Negative risk factor for coronary heart disease <40 mg/dL, Low: Positive risk factor for coronary heart disease LDL Cholesterol, Hmciugxkyu28<100 mg/dL01/25/2025 2:02 PM [facility]Comment: <100 mg/dL, Optimal 100-129 mg/dL, Near optimal/above optimal 130-159 mg/dL, Borderline high 160-189 mg/dL, High >189 mg/dL, Very high Secondary prevention optimal LDL Cholesterol levels are recommended to be <70 mg/dL LDL cholesterol is calculated using the Coates-NIH equation. Non HDL Kmgexiuccgv07<130 mg/dL01/25/2025 2:02 PM [facility] LABComment: <130 mg/dL, Optimal 130-159 mg/dL, Near optimal/above optimal 160-189 mg/dL, Borderline high 190-219 mg/dL, High >219 mg/dL, Very high Secondary prevention optimal non HDL Cholesterol levels are recommended to be <100 mg/dL VLDL Tlhrglyipbn40<30 mg/dL01/25/2025 2:02 PM [facility] LABTC:HDL Ratio1.91<5.1009 2:02 PM [facility] LDL:HDL Ratio0.47<2.5409 2:02 PM [facility] Comment: Reference: 1. National Cholesterol Education Program ATP III Guideline At-A-Glance Quick Desk Reference: National Heart, Lung, and Blood [place]. National Institutes of Health. 2001: NIH Publication No. 01-3305. 2. An International Atherosclerosis Society position paper: global recommendations for the management of dyslipidemia: executive summary, Atherosclerosis. 2014: 232(2):410-413. Fasting Jmhc20rui48/08/2025 2:02 PM [facility] LABComment:2 Specimen (Source)Anatomical Location / LateralityCollection Method / Volume Collection TimeReceived TimeBloodBLOOD SPECIMEN / UnknownVenipuncture / Unknown 01/25/2025 11:02 AM EDT01/25/2025 11:02 AM EDT Narrative Authorizing ProviderResult TypeResult StatusJohanne Gee MDLABORATORYFinal ResultPerforming OrganizationAddressCity/State/ZIP CodePhone Number [facility] [id number] [place] [address], [place] * (ABNORMAL) HGB A1C (11/13/2021 8:45 AM EDT)ComponentValueRef RangeTest Method Analysis TimePerformed AtPathologist SignatureHemoglobin A1C8.2(H)4.3 - 5.6 % 11/13/2021 3:56 PM [facility] LABComment:[place] Diabetes Association guidelines indicate that patients with HgbA1c in the range 5.7-6.4% are at increased risk for development of diabetes, and intervention by lifestyle modification may be beneficial. HgbA1c greater or equal to 6.5% is considered diagnostic of diabetes.Estimated Average Glucose 189mg/dL11/13/2021 3:56 PM [facility] LABComment:eAG: (Estimated average glucose) is a calculated value from HgbA1c and is customer service representative teller of the average blood glucose level in the last 2-3 month period.Specimen (Source)Anatomical Location / LateralityCollection Method / VolumeCollection TimeReceived TimeBloodBLOOD SPECIMEN / UnknownVenipuncture / Pswyyoo8311/13/2021 8:45 AM EDT11/13/2021 8:45 AM EDT Narrative Authorizing ProviderResult TypeResult StatusSusy Barraza APRN.CNPLABORATORY Final ResultPerforming OrganizationAddressCity/State/ZIP CodePhone Number [facility] [address] [place] [address], [place] * COLONOSCOPY (07/01/2020 9:43 AM EST)ComponentValueRef RangeTest MethodAnalysis TimePerformed AtPathologist SignatureTranscriptionFairview [facility]ptial [facility] Patient Name: Munira Serra Procedure Date: 07/01/2020 9:43 AM Date of : 1965 Admit Type: Outpatient Age: 54 Room: [facility] Room 2 Gender: Female Note Status: Finalized [...] MDDIGESTIVE DISEASE REGIONALFinal ResultPerforming OrganizationAddressCity/State/ZIP CodePhone Number [facility] [address] [place] [address] [facility] from Last 3 Months or Most Recently Relevant to Health Maintenance Insurance Advance Directives * Full Code (Latest Code Status on File) Date ActivatedDate InactivatedComments08/07/2021 10:39 PM08/12/2021 6:19 PM QuestionAnswerCommentsFull Code Order Discussed With:* Patient Care Teams Team MemberRelationshipSpecialtyStart DateEnd Noah Swann MD PCP - GeneralFamily Medicine06/16/20 Reed Leon MD [address] [place] [address] Primary Staff PhysicianCardiology11/08/20
== END 2025-05-12 06:45 | disposition home or self-care (01) ==
LOC: MRI 06:45
PROVIDERS: PCP Family Medicine; Visit Provider Family Medicine
DX: M47.816 Spondylosis without myelopathy or radiculopathy, lumbar region (principal); H54.7 Unspecified visual loss; M54.12 Radiculopathy, cervical region
CPT/HCPCS: 70551; 72141